=== PATIENT | male | born 1940 | race Caucasian/White ===

== ENCOUNTER → 2021-06-18 10:56 | Outpatient (BNVA) | payer MEDICARE, SELFPAY | PROVIDERS: PCP Internal Medicine; Visit Provider Nurse Practitioner Family | DX: G47.33 Obstructive sleep apnea (adult) (pediatric) (principal); M54.2 Cervicalgia; M79.2 Neuralgia and neuritis, unspecified | CPT/HCPCS: 99212 ==

== ENCOUNTER → 2021-09-25 09:58 | Outpatient (BNVA) | payer MEDICARE, SELFPAY | PROVIDERS: PCP Internal Medicine; Visit Provider Nurse Practitioner Family | DX: G47.33 Obstructive sleep apnea (adult) (pediatric) (principal); M79.2 Neuralgia and neuritis, unspecified; Z79.899 Other long term (current) drug therapy | CPT/HCPCS: 99212 ==

== ENCOUNTER → 2022-03-26 09:50 | Outpatient (BNVA) | payer MEDICARE, SELFPAY | PROVIDERS: PCP Internal Medicine Sports Medicine; Visit Provider Nurse Practitioner Family | DX: G47.33 Obstructive sleep apnea (adult) (pediatric) (principal); M79.2 Neuralgia and neuritis, unspecified | CPT/HCPCS: 99212 ==

== ENCOUNTER → 2022-09-24 10:50 | Outpatient (BNVA) | payer MEDICARE, SELFPAY | PROVIDERS: PCP Internal Medicine Sports Medicine; Visit Provider Nurse Practitioner Family | DX: G47.33 Obstructive sleep apnea (adult) (pediatric) (principal); M50.20 Other cervical disc displacement, unspecified cervical region; M48.02 Spinal stenosis, cervical region; R20.0 Anesthesia of skin; Z99.89 Dependence on other enabling machines and devices | CPT/HCPCS: 99212 ==

== ENCOUNTER 2022-10-22 09:38 | Outpatient (REF) | payer MEDICARE, SELFPAY ==
--- NOTE | ~2022-10-22 | MR_ITS ---
EXAMINATION: MR CERVICAL SPINE WITHOUT CONTRAST CLINICAL INFORMATION: Spinal stenosis, cervical region. COMPARISON: None available. TECHNIQUE: MRI of the cervical spine was performed using routine sequences without contrast. FINDINGS: The cervical vertebral bodies maintain normal heights. There is mild retrolisthesis of C4 on C5 and C6 on C7. Disc height loss appears severe at C4-C5, C5-C6, and C6-C7. Endplate edema seen at the C6-C7 level. 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 There is possible myelomalacia in the cord at the C6-C7 level. The imaged intracranial contents are unremarkable. The cervical soft tissues are within normal limits. A small amount of pleural fluid is noted on the left. SPINAL LEVELS: C2-C3: Disc osteophyte complex with ligamentum flavum infolding resulting in mild to moderate spinal canal stenosis. No neural foraminal stenosis. C3-C4: Disc osteophyte complex with uncovertebral hypertrophy and facet arthropathy. Mild spinal canal stenosis. Mild right neural foraminal stenosis. C4-C5: Disc osteophyte complex with uncovertebral hypertrophy resulting in severe spinal canal stenosis with cord flattening and severe right and moderate to severe left neural foraminal stenosis. C5-C6: Disc osteophyte complex with uncovertebral hypertrophy resulting in severe spinal canal stenosis and severe bilateral neural foraminal stenosis. C6-C7: Disc osteophyte complex with ligament flavum infolding and uncovertebral hypertrophy resulting in severe spinal canal stenosis and severe bilateral neural foraminal stenosis. C7-T1: No posterior disc abnormality. No spinal canal or neural foraminal stenosis. 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 Multilevel high-grade neural foraminal stenosis is also present.
== END 2022-10-22 09:39 | disposition home or self-care (01) ==
LOC: HO.MRI 09:38
PROVIDERS: PCP Internal Medicine Sports Medicine; Visit Provider Nurse Practitioner Family
DX: M48.02 Spinal stenosis, cervical region (principal); M50.20 Other cervical disc displacement, unspecified cervical region; R20.0 Anesthesia of skin
CPT/HCPCS: 72141

== ENCOUNTER 2023-03-27 10:46 | Outpatient (AMB) | payer MEDICARE, SELFPAY ==
--- NOTE | 2023-03-27 10:50 | MHC.OFFVIS ---
Intake Vital Signs 03/27/23 10:57 Height 5 ft 4 in Weight 207 lb BMI 35.5 Pulse 54 Pulse Source Pulse Oximeter Pulse Oximetry (%) 98 Oxygen Delivery Method Room Air Intake Visit Reasons: 6m follow up KEVIN-LVM Intake Note: Patient presents for 6 month follow up. Patient states Allergies No Known Allergies [No Known Allergies*] Allergy (Verified 03/27/23 10:58) Medication List - Last Reconciled 03/27/23 by CAROL Finnegan albuterol sulfate 90 mcg/actuation 0 mcg inhalation amlodipine 2.5 mg PO DAILY aspirin (Adult Aspirin Regimen) 81 mg PO DAILY atorvastatin 40 mg PO BEDTIME calcium glucarate 1 tab-cap PO DAILY cilostazol 50 mg PO BID coenzyme Q10 (Co Q-10) 100 mg PO DAILY colchicine (gout) 1.2 mg PO DAILY PRN finasteride 5 mg PO DAILY fluticasone propionate 110 mcg/actuation (Flovent HFA) 110 mcg inhalation BID fluticasone propionate 50 mcg/actuation sprays intranasal gabapentin 600 mg PO BEDTIME lorazepam 0.5 mg PO BEDTIME PRN metoprolol tartrate 25 mg PO BID multivitamin (Daily Multi-Vitamin tablet) 1 tab PO DAILY nitroglycerin 0.4 mg sublingual Q5M PRN olmesartan 5 mg PO DAILY pantoprazole 40 mg PO BID rivaroxaban (Xarelto) 20 mg PO DAILY HPI HPI Comments History of Present Illness Details 82-yr-old male presents for f/u visit. Pt denies any significant interval medical changes. He is sleeping well with CPAP, once he falls asleep. He is compliant w/ Gabapentin. He is still having right 4th/5th finger intermittent numbness. Denies focal weakness- feels general age-related weakness. States he can still flower buncher or picker his 5 gallon gasoline can. He is playing pickle ball. Sometimes he will use his push mower to increase his physical activity. 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 Multilevel high-grade neural foraminal stenosis is also present. [facility] Medical History (Updated 09/24/22 @ 12:59 by CAROL Finnegan) Syncope RBBB PVD (peripheral vascular disease) Hx of thyroid nodule GERD (gastroesophageal reflux disease) CAD (coronary artery disease) BPH (benign prostatic hyperplasia) Asthma Atrial fibrillation Surgical History H/O right knee surgery H/O heart surgery Family History Mother Breast cancer Father Heart attack Brother Stomach cancer Brother Heart disease Social History Alcohol intake: current Alcohol intake frequency: a few times a month Patient Tobacco Use Status: Former Tobacco user Quit Date: Years Smoked: 25 +/- Review of Systems Const All systems reviewed & are unremarkable except as noted in HPI and below Physical Exam Vital Signs: Last Vital Signs Pulse 54 03/27/23 10:57 Pulse Ox 98 03/27/23 10:57 Oxygen Delivery Method Room Air 03/27/23 10:57 BMI result Body Mass Index 35.5 Const General: cooperative and no acute distress Orientation/consciousness: patient oriented x3 HEENT Head: Yes normocephalic Resp Effort & Inspection: normal respiratory effort and able to speak in complete sentences Neuro Other: MS 5/5, with slightly weaker right hand grasp compared to left. BUE light touch sensation intact General: patient oriented x3, gait normal and CN's II-XI intact bilaterally Cognition (Neuro): normal cognition Deep tendon reflexes (DTR's): Right triceps reflex intensity grade: 1+, Left triceps reflex intensity grade: 1+, Rt Biceps (C5, C6): 1+, Left biceps reflex intensity grade: 1+, Right brachioradialis reflex intensity grade: 1+, Left brachioradialis reflex intensity grade: 1+, Right patellar reflex intensity grade: 1+ and Left patellar reflex intensity grade: 1+ Psych Appearance: grossly normal Mental Status: mental status grossly normal Speech and movement: Normal speech and movement present Affect: normal affect Attitude: cooperative Thought process: Normal thought process present Thought content: Normal thought content present Insight: Good insight present (Psych) Judgement: Good judgement present (Psych) Assessment & Plan Assessment & Plan (1) Obstructive sleep apnea (adult) (pediatric): Code(s): G47.33 - Obstructive sleep apnea (adult) (pediatric) (2) Cervical disc herniation: Code(s): M50.20 - Other cervical disc displacement, unspecified cervical region (3) Foraminal stenosis of cervical region: Code(s): M48.02 - Spinal stenosis, cervical region (4) Cervical stenosis of spinal canal: Code(s): M48.02 - Spinal stenosis, cervical region Plan Reviewed c-spine MRI- Multilevel degenerative spondylosis and congenital narrowing of spinal canal resulting in severe spinal canal stenosis with cord flattening at C4-C5, C5-C6, and C6-C7. Multilevel high-grade neural foraminal stenosis.. Pt currently reports only bothersoem symptom is right 4th/5th finger intermittent numbness. He is not interested in referal to neurosurgeon or physiatry at this time. Reviewed warning s/s to notify us with- acute weakness, numbness, gait changes etc. Continue gabapentin 600 mg q.h.s. ? Continue APAP 8-20 cmH2O nightly greater than, as patient is experiencing good the use. Will request updated Pap compliance report. f/u in 6 months or sooner prn Coding Level of Care Code Est Pt Level 4 (73603) Diagnoses Obstructive sleep apnea (adult) (pediatric) G47.33 Cervical disc herniation M50.20 Foraminal stenosis of cervical region M48.02 Cervical stenosis of spinal canal M48.02
[2023-03-27 10:57] VITALS: PULSE 54; O2SAT 98; BMI 35.5
== END 2023-03-27 11:43 | disposition home or self-care (01) ==
PROVIDERS: Visit Provider Nurse Practitioner Family
DX: G47.33 Obstructive sleep apnea (adult) (pediatric) (principal); M50.20 Other cervical disc displacement, unspecified cervical region; M48.02 Spinal stenosis, cervical region
CPT/HCPCS: 99214

== ENCOUNTER → 2023-03-27 10:46 | Outpatient (BNVA) | payer MEDICARE, SELFPAY | PROVIDERS: Visit Provider Nurse Practitioner Family | DX: G47.33 Obstructive sleep apnea (adult) (pediatric) (principal); M50.20 Other cervical disc displacement, unspecified cervical region; M48.02 Spinal stenosis, cervical region | CPT/HCPCS: 99212 ==

== ENCOUNTER 2023-07-21 14:21 | Outpatient (REF) | payer MEDICARE, SELFPAY ==
[2023-07-21 16:35] LABS: Anion Gap 14 (12-20); Blood Urea Nitrogen 29 mg/dL (9-16); Calcium 9.1 mg/dL (8.4-10.2); Carbon Dioxide 27 mmol/L (22-29); Chloride 104 mmol/L (96-108); Estimated Glomerular Filt Rate > 60; Glucose Random 102 mg/dL (60-115); Potassium 5.2 mmol/L (3.3-5.1); Sodium 140 mmol/L (135-145)
[2023-07-21 16:43] LABS: B Type Natriuretic Peptide 194 pg/mL (<100)
== END 2023-07-21 14:22 | disposition home or self-care (01) ==
LOC: HO.LAB 14:21
PROVIDERS: PCP Internal Medicine Sports Medicine; Visit Provider Internal Medicine
DX: I50.22 Chronic systolic (congestive) heart failure (principal); I25.10 Atherosclerotic heart disease of native coronary artery without angina pectoris; I48.91 Unspecified atrial fibrillation; Z95.810 Presence of automatic (implantable) cardiac defibrillator; Z79.899 Other long term (current) drug therapy; Z86.74 Personal history of sudden cardiac arrest
CPT/HCPCS: 36415; 80048; 83880; 93005; 99202

== ENCOUNTER 2023-07-21 14:21 | Outpatient (AMB) | payer MEDICARE, SELFPAY ==
[2023-07-21 14:29] VITALS: BP 112/56; PULSE 88; BMI 32.9
--- NOTE | 2023-07-21 14:29 | A.OFFVIS_ITS ---
Intake Vital Signs 07/21/23 14:29 Height 5 ft 4 in Weight 191 lb 9.307 oz BMI 32.9 BP 112/56 L Blood Pressure Location Rt brachial Position Sitting Pulse 88 Intake Visit Reasons: BRICK WHEELER/Phoebe cardio dad/ AK in Ms Intake Note: NPV w/ EKG Environmental Monitoring Technician Required: No Accompanied by: Daughter Allergies No Known Allergies [No Known Allergies*] Allergy (Verified 07/21/23 14:30) Medication List - Last Reconciled 07/21/23 by Evangelista Asher MD allopurinol 100 mg PO DAILY aspirin (Adult Aspirin Regimen) 81 mg PO DAILY bumetanide 1 mg PO DAILY PRN cilostazol 50 mg PO BID finasteride 5 mg PO DAILY fluticasone propionate 50 mcg/actuation sprays intranasal gabapentin 300 mg PO BEDTIME metoprolol succinate ER 12.5 mg PO BID nitroglycerin 0.4 mg sublingual Q5M PRN pantoprazole 40 mg PO BID rivaroxaban (Xarelto) 20 mg PO DAILY sacubitril-valsartan 24-26 mg (Entresto) 0.5 tabs PO BID trazodone 50 mg PO BEDTIME PRN HPI HPI Comments History of Present Illness Details Sherman is here for consultation regarding various cardiac issues. Fairly complicated history. It seems that he was previously followed up at [facility]. Then he traveled to [place] for a visit and in that setting, he had a cardiac arrest. There was bystander CPR and AED shocks and then return of spontaneous circulation. Then taken to hospital and appropriately managed. In the hospital, rhythm was apparently ventricular fibrillation. Then he underwent left heart catheterization, but that showed no significant findings and he had patent grafts. He was also in congestive heart failure and was on diuretic drips and dobutamine drips as well. Eventually, he underwent a BiV ICD and then successfully discharged. Then he went to rehab for a few days and then came back to [place]. He would like to switch his cardiac care to us. Since the time of discharge, he actually states he is back to his normal self for the most part. He does not have any memory deficits or anything else from the cardiac arrest event. He states that even before arrival he was not feeling too good and was feeling short of breath and was putting on some weight and having leg swelling extra. Hence it seems that he was actually having congestive heart failure even before traveling to [place]. [facility], [facility] Medical History (Updated 07/21/23 @ 15:29 by Evangelista Asher MD) Biventricular ICD (implantable cardioverter-defibrillator) in place Syncope RBBB PVD (peripheral vascular disease) Hx of thyroid nodule GERD (gastroesophageal reflux disease) CAD (coronary artery disease) BPH (benign prostatic hyperplasia) Asthma Atrial fibrillation Surgical History (Updated 07/21/23 @ 15:28 by Evangelista Asher MD) Hx of CABG Hx of cardiac cath H/O right knee surgery H/O heart surgery Family History Mother Breast cancer Father Heart attack Brother Stomach cancer Brother Heart disease Social History Alcohol intake: current Alcohol intake frequency: a few times a month Patient Tobacco Use Status: Former Tobacco user Quit Date: Years Smoked: 25 +/- Review of Systems Const Denies chills, Denies daytime sleepiness, Denies fatigue, Denies fever(s), Denies frequent falls, Denies night sweats, Denies snoring, Denies weakness, Denies weight gain and Denies weight loss Eyes Denies loss of vision ENT Denies dizziness and Denies hearing loss Card Denies chest pain, Denies chest pain with activity, Denies syncope, Denies rapid heart rate, Denies edema, Denies claudication, Denies leg edema, Denies lightheadedness, Denies palpitations, Denies dyspnea and Denies orthopnea Resp Denies cough, Denies excessive phlegm production, Denies dyspnea, Denies snoring and Denies wheezing GI Denies abdominal pain, Denies hematochezia, Denies change in bowel habits, Denies change in stool character, Denies heartburn, Denies nausea and Denies vomiting Denies hematuria, Denies dysuria and Denies urinary frequency Musc Denies arthralgias, Denies muscle weakness, Denies numbness and Denies tingling Skin/Breast Denies nail changes and Denies rash Neuro Denies Abnormal speech present, Denies dizziness, Denies syncope, Denies frequent falls, Denies loss of vision, Denies memory loss, Denies numbness, Denies tingling and Denies weakness Psych Denies depression and Denies memory loss Endo Denies fatigue and Denies palpitations Aller/Immun Denies wheezing Physical Exam Vital Signs: Last Vital Signs Pulse 88 07/21/23 14:29 BP 112/56 L 07/21/23 14:29 BMI result Body Mass Index 32.9 Const General: comfortable and no acute distress Orientation/consciousness: patient oriented x3 HEENT Other: Unremarkable Head: Yes normal to inspection Neck Neck: Yes normal visual inspection Chest Chest palpation & inspection: normal inspection of the chest Resp Auscultation: clear to auscultation bilaterally Cardio Palpation: normal PMI Heart sounds: S1 normal heart sound present, S2 normal heart sound present, no gallops, no murmurs and no rubs GI Palpation (GI): Soft to palpation Back/Spine/Pelvis Other: unremarkable Skin General skin exam: no rashes or lesions noted Neuro General: patient oriented x3 Speech: No Abnormal speech present Extrem General: Yes normal to inspection Psych Mental Status: mental status grossly normal Office Procedures EKG Details: EKG with atrial fibrillation at a rate of 88/Min; ventricular paced rhythm with some PVCs. [id number], Complete Assessment & Plan Assessment & Plan (1) Atherosclerotic cardiovascular disease: Code(s): I25.10 - Atherosclerotic heart disease of [place] coronary artery without angina pectoris Plan: Remote history of coronary bypass. In the most recent cardiac catheterization [place], patent grafts. Continue aspirin, statins. It seems that he is probably on atorvastatin but t hey do not know the dose. We can add that next time. (2) Acute congestive heart failure: Code(s): I50.9 - Heart failure, unspecified Plan: Per documentation, he was on Lasix drip while hospitalized. Now on oral Bumex but he only takes it as needed. In the discharge summary, there is mention of LVEF 30%, but then echocardiogram reports rather 54%. We will repeat another study. He was also on Jardiance but not taking anymore. His blood pressure is already on the lower side and hence probably not resume. Otherwise, on low-dose beta-blockers and low-dose Entresto at very low doses mainly for low blood pressure. (3) Cardiac arrest: Code(s): I46.9 - Cardiac arrest, cause unspecified Plan: Successfully resuscitated. Now has ICD in place. (4) Biventricular ICD (implantable cardioverter-defibrillator) in place: Code(s): Z95.810 - Presence of automatic (implantable) cardiac defibrillator Plan: Will need to be interrogated and we will schedule this for next week or so. Then remote monitoring as well. (5) Atrial fibrillation: Code(s): I48.91 - Unspecified atrial fibrillation Plan: EKG today shows atrial fibrillation. He has been on Xarelto recently. Again not clear if it is persistent or paroxysmal. Will need to get prior records. Plan We are sending Allopurinol for time being, as requested by daughter as they could not get PCP appointment. Total time spent including review of all the [place] records, counseling, documentation, coordination of care-60 minutes. Orders: Orders CA echo transthoracic complete Today I25.10 - Atherosclerotic heart disease of [place] coronary artery without angina pectoris B Type Natriuretic Peptide Today I50.9 - Heart failure, unspecified LDL Cholesterol Direct Today E78.2 - Mixed hyperlipidemia, I25.10 - Atherosclerotic heart disease of [place] coronary artery without angina pectoris Lipid Panel Today E78.5 - Hyperlipidemia, unspecified, I25.10 - Atherosclerotic heart disease of [place] coronary artery without angina pectoris Basic Metabolic Panel Today I50.22 - Chronic systolic (congestive) heart failure Liver Panel Today I25.10 - Atherosclerotic heart disease of [place] coronary artery without angina pectoris, I50.9 - Heart failure, unspecified Medications: New rivaroxaban (Xarelto) 20 mg PO DAILY 90 tabs 3RF allopurinol 100 mg PO DAILY 90 days 90 tabs 1RF metoprolol succinate ER 12.5 mg (1/2 x 25 mg) PO BID 90 days 90 tabs 3RF sacubitril-valsartan 24-26 mg (Entresto) 0.5 tabs PO BID 90 days 90 tabs 3RF Coding Level of Care Code New Pt Level 5 (63451) Diagnoses Atherosclerotic cardiovascular disease I25.10 Acute congestive heart failure I50.9 Cardiac arrest I46.9 Biventricular ICD (implantable cardioverter-defibrillator) in place Z95.810 Atrial fibrillation I48.91 CPT Codes EKG - CPT: 69054-[id number], Complete ([id number])
== END 2023-07-21 15:13 | disposition home or self-care (01) ==
PROVIDERS: PCP Internal Medicine Sports Medicine; Visit Provider Internal Medicine
DX: I25.10 Atherosclerotic heart disease of native coronary artery without angina pectoris (principal); I50.9 Heart failure, unspecified; I46.9 Cardiac arrest, cause unspecified; I48.91 Unspecified atrial fibrillation; Z95.810 Presence of automatic (implantable) cardiac defibrillator
CPT/HCPCS: 93010; 99205

== ENCOUNTER → 2023-07-23 08:46 | Outpatient (REF) | payer MEDICARE, SELFPAY ==
--- NOTE | 2023-07-23 08:50 | CA_ITS ---
Transthoracic Echocardiogram Patient (Last, First, Middle): Sherman Hurtado P Gender: Male Date of : 1940 Age: 82 Procedure Date: 07/23/2023 Procedure Type: Transthoracic Echocardiogram Location: OP Height: 162.56 cm Weight: 86.18 kg BSA: 1.91 m2 Heart Rate: 83 bpm BP: 104 / 52 mmHg [employer] Business Representative: SB Referring MD: Evangelista Asher MD Symptoms: I25.10 - Atherosclerotic heart disease of [place] coronary artery without... Study Quality: Adequate w contrast ECG Rhythm: Atrial Fibrillation Conclusions: - The left ventricular systolic function is mildly decreased. The calculated ejection fraction is 46% by biplane method. - The basal inferior and basal inferoseptal segments are hypokinetic. - The left atrium is moderately dilated. - No obvious valvular pathology seen on this study. Findings Procedure Information Contrast agent, definity, is being given per protocol without apparent complications. Left Ventricle Normal left ventricular cavity size. There is normal left ventricular wall thickness. The left ventricular systolic function is mildly decreased. The calculated ejection fraction is 46% by biplane method. Diastolic function is indeterminate on the basis of available data. Wall Motion Rest Echo Findings The basal inferior and basal inferoseptal segments are hypokinetic. Right Ventricle Mildly increased right ventricular cavity size. There is mildly decreased right ventricular systolic function. There is an ICD wire seen in the right ventricle. Atria The left atrium is moderately dilated. The right atrium is normal in size. Aortic Valve There is mild calcification of the aortic valve. There is no aortic valve stenosis. There is trace (trivial) aortic valve regurgitation. Mitral Valve There is mild mitral annular calcification. There is trace mitral valve regurgitation. There is no mitral valve stenosis. Pulmonic Valve The pulmonic valve is likely normal. Tricuspid Valve There is trace tricuspid valve regurgitation. There is no evidence of pulmonary hypertension. Great Vessels The asc aorta is normal in size. Venous The inferior vena cava is normal in size and collapses greater than 50% with inspiration. Pericardium/Pleural There is no evidence of pericardial effusion. Prior Study Comparison Changes noted compared to prior study dated: 06/07/2023. slightly lower LVEF compared to study from [place]; wall motion abnormality not previously described. Recommendations, Care & Conclusions No obvious valvular pathology seen on this study. Measurements 2D Linear Measurements IVSd: 0.82 0.6-0.9/0.6-1.0 cm LVIDd: 5.00 3.9-5.3/4.2-5.9 cm LVIDd Index: 2.62 2.4-3.2/2.2-3.1 cm/m2 LVIDs: 4.01 2.0-3.6 cm LVPWd: 0.90 0.7-1.1 cm LA Diam: 4.90 2.7-3.8/3.0-4.0 cm LAIDs Index: 2.57 1.5-2.3 cm/m2 LV Mass: 185.04 67-162/88-224 g LV Mass Index: 96.88 43-95/49-115 g/m2 LVOT Diam: 2.30 3.0+(-)1.3 cm 2D Systolic Function EF 4C: 42.00 >55% EF 2C: 47.60 >55% EF BiP: 45.80 >55% Mitral Valve MV Pk E: 1.01 MV Decel Time: 177.00 E'Lateral: 9.16 E'Medial: 5.98 E/E' Med: 16.90 E/E' Lat: 11.00 Aortic Valve AoV Pk Thaddeus: 2.02 AoV Mn Thaddeus: 1.40 AoV VTI: 0.35 AoV Pk Grad: 16.00 Aov Mn Grad: 9.00 ARIANNA Cont.VTI: 1.87 AI Pk Thaddeus: 3.65 AI [place]: 2.74 LVOT LVOT Pk Thaddeus: 0.91 LVOT Mn Thaddeus: 0.60 LVOT VTI: 0.16 LVOT Pk Grad: 3.00 LVOT Mn Grad: 2.00 LVOT Diam: 2.30 LVOT Area: 4.15 Diastolic Function MV Pk E: 1.01 E'Medial: 5.98 E/E' Med: 16.90 E' Laterial: 9.16 E/E' Lat: 11.00 Right Ventricle TAPSE (mm): 11.70 TVS' Thaddeus: 8.38 Tricuspid Valve TR Pk Thaddeus: 2.32 TR Pk Grad: 22.00 RA Press: 8.00 RVSP: 30.00 Great Vessels Aorta Sinus of Valsalva: 2.90 2.0-3.5 cm Ao Asc: 2.90 2.1-3.4 cm Pulmonary Valve PV Pk Thaddeus: 0.93 Peak PV Grad: 3.00 Updated in Other Vendor System with Status of Final Evangelista Asher MD electronically signed on 07/25/2023 11:37:37 AM with status of Final
== END ==
LOC: HO.CARD 08:46
PROVIDERS: PCP Internal Medicine Sports Medicine; Visit Provider Internal Medicine
DX: I25.10 Atherosclerotic heart disease of native coronary artery without angina pectoris (principal)
CPT/HCPCS: 93306; Q9957

== ENCOUNTER → 2023-07-23 08:50 | Outpatient (BNV) | payer MEDICARE, SELFPAY | PROVIDERS: PCP Internal Medicine Sports Medicine; Visit Provider Internal Medicine | DX: I25.10 Atherosclerotic heart disease of native coronary artery without angina pectoris (principal) | CPT/HCPCS: 93306 ==

== ENCOUNTER 2023-07-28 14:05 | Outpatient (AMB) | payer MEDICARE, SELFPAY ==
--- NOTE | 2023-07-29 15:27 | MHC.OFFVIS ---
Intake Intake Visit Reasons: med ck only Allergies No Known Allergies [No Known Allergies*] Allergy (Verified 07/21/23 14:30) PFSH Medical History (Updated 07/21/23 @ 15:29 by Evangelista Asher MD) Biventricular ICD (implantable cardioverter-defibrillator) in place Syncope RBBB PVD (peripheral vascular disease) Hx of thyroid nodule GERD (gastroesophageal reflux disease) CAD (coronary artery disease) BPH (benign prostatic hyperplasia) Asthma Atrial fibrillation Surgical History (Updated 07/21/23 @ 15:28 by Evangelista Asher MD) Hx of CABG Hx of cardiac cath H/O right knee surgery H/O heart surgery Family History Mother Breast cancer Father Heart attack Brother Stomach cancer Brother Heart disease Social History Alcohol intake: current Alcohol intake frequency: a few times a month Patient Tobacco Use Status: Former Tobacco user Quit Date: Years Smoked: 25 +/- Office Procedures Cardiac Device Check Cardiac Device Check Details: ICD interrogated 07/28/2023. Battery status 8.4 years. Normal lead parameters atrial fibrillation burden 100%. No treated VT/VF. Biventricular pacing 99.9%. Overall, normal device function. [id number] Cardiac Device Check, multi lead implantable defibrillator Procedure code (CPT) selection complete Assessment & Plan Assessment & Plan (1) Atrial fibrillation: Code(s): I48.91 - Unspecified atrial fibrillation (2) Cardiac arrest: Code(s): I46.9 - Cardiac arrest, cause unspecified (3) Biventricular ICD (implantable cardioverter-defibrillator) in place: Code(s): Z95.810 - Presence of automatic (implantable) cardiac defibrillator Plan x Coding Level of Care Code Procedure Only Diagnoses Atrial fibrillation I48.91 Cardiac arrest I46.9 Biventricular ICD (implantable cardioverter-defibrillator) in place Z95.810 CPT Codes Cardiac Device Check - Cardiac Device 6: [id number] Cardiac Device Check, multi lead implantable defibrillator ([id number])
== END 2023-07-28 15:00 | disposition home or self-care (01) ==
PROVIDERS: PCP Internal Medicine Sports Medicine; Visit Provider Internal Medicine
DX: I46.9 Cardiac arrest, cause unspecified (principal); Z95.810 Presence of automatic (implantable) cardiac defibrillator
CPT/HCPCS: 93284

== ENCOUNTER → 2023-07-28 14:05 | Outpatient (BNVA) | payer MEDICARE, SELFPAY | PROVIDERS: PCP Internal Medicine Sports Medicine; Visit Provider Internal Medicine ==

== ENCOUNTER → 2023-08-13 23:59 | Outpatient (BNV) | payer MEDICARE, SELFPAY ==
--- NOTE | 2023-08-17 13:06 | MHC.OFFVIS ---
Intake Intake Visit Reasons: Remote ICD Check- [employer] Allergies No Known Allergies [No Known Allergies*] Allergy (Verified 07/21/23 14:30) PFSH Medical History (Updated 07/21/23 @ 15:29 by Evangelista Asher MD) Biventricular ICD (implantable cardioverter-defibrillator) in place Syncope RBBB PVD (peripheral vascular disease) Hx of thyroid nodule GERD (gastroesophageal reflux disease) CAD (coronary artery disease) BPH (benign prostatic hyperplasia) Asthma Atrial fibrillation Surgical History (Updated 07/21/23 @ 15:28 by Evangelista Asher MD) Hx of CABG Hx of cardiac cath H/O right knee surgery H/O heart surgery Family History Mother Breast cancer Father Heart attack Brother Stomach cancer Brother Heart disease Social History Alcohol intake: current Alcohol intake frequency: a few times a month Patient Tobacco Use Status: Former Tobacco user Quit Date: Years Smoked: 25 +/- Office Procedures Cardiac Device Check Cardiac Device Check Details: Date of service 08/13/2023; Battery life >7 years; normal lead parameters; no treated VT/VF; episodes of atrial fibrillation with slightly rapid rate; total time in atrial fibrillation 43%. adequate Bi V pacing.. Overall normal device function. [id number] Cardiac Interrogation, implant defibrillator w/interim Procedure code (CPT) selection complete Assessment & Plan Assessment & Plan (1) Cardiac arrest: Code(s): I46.9 - Cardiac arrest, cause unspecified (2) Biventricular ICD (implantable cardioverter-defibrillator) in place: Code(s): Z95.810 - Presence of automatic (implantable) cardiac defibrillator (3) Atrial fibrillation: Code(s): I48.91 - Unspecified atrial fibrillation Plan x Coding Level of Care Code Procedure Only Diagnoses Cardiac arrest I46.9 Biventricular ICD (implantable cardioverter-defibrillator) in place Z95.810 Atrial fibrillation I48.91 CPT Codes Cardiac Device Check - Cardiac Device 13: [id number] Cardiac Interrogation, implant defibrillator w/interim ([id number])
== END ==
PROVIDERS: PCP Internal Medicine Sports Medicine; Visit Provider Internal Medicine
DX: I48.91 Unspecified atrial fibrillation (principal); Z95.810 Presence of automatic (implantable) cardiac defibrillator; I46.9 Cardiac arrest, cause unspecified
CPT/HCPCS: 93295

== ENCOUNTER → 2023-08-13 23:59 | Outpatient (BNV) | payer MEDICARE, SELFPAY ==
--- NOTE | 2023-08-17 13:04 | MHC.OFFVIS ---
Intake Intake Visit Reasons: Remote HF Monitoring- [employer] Allergies No Known Allergies [No Known Allergies*] Allergy (Verified 07/21/23 14:30) PFSH Medical History (Updated 07/21/23 @ 15:29 by Evangelista Asher MD) Biventricular ICD (implantable cardioverter-defibrillator) in place Syncope RBBB PVD (peripheral vascular disease) Hx of thyroid nodule GERD (gastroesophageal reflux disease) CAD (coronary artery disease) BPH (benign prostatic hyperplasia) Asthma Atrial fibrillation Surgical History (Updated 07/21/23 @ 15:28 by Evangelista Asher MD) Hx of CABG Hx of cardiac cath H/O right knee surgery H/O heart surgery Family History Mother Breast cancer Father Heart attack Brother Stomach cancer Brother Heart disease Social History Alcohol intake: current Alcohol intake frequency: a few times a month Patient Tobacco Use Status: Former Tobacco user Quit Date: Years Smoked: 25 +/- Office Procedures Cardiac Device Check Cardiac Device Check Details: Date of service- 08/13/2023; based on impedance data and physiological variables, there is no evidence of worsening congestive heart failure. [id number] Cardiac Device Interrogation, cardio physiologic monitor Procedure code (CPT) selection complete Assessment & Plan Assessment & Plan (1) Cardiac arrest: Code(s): I46.9 - Cardiac arrest, cause unspecified (2) Atrial fibrillation: Code(s): I48.91 - Unspecified atrial fibrillation (3) Biventricular ICD (implantable cardioverter-defibrillator) in place: Code(s): Z95.810 - Presence of automatic (implantable) cardiac defibrillator Plan x Coding Level of Care Code Procedure Only Diagnoses Cardiac arrest I46.9 Atrial fibrillation I48.91 Biventricular ICD (implantable cardioverter-defibrillator) in place Z95.810 CPT Codes Cardiac Device Check - Cardiac Device 15: [id number] Cardiac Device Interrogation, cardio physiologic monitor ([id number])
== END ==
PROVIDERS: PCP Internal Medicine Sports Medicine; Visit Provider Internal Medicine
DX: I46.9 Cardiac arrest, cause unspecified (principal); I48.91 Unspecified atrial fibrillation; Z95.810 Presence of automatic (implantable) cardiac defibrillator
CPT/HCPCS: 93297

== ENCOUNTER 2023-08-26 13:47 | Outpatient (REF) | payer MEDICARE, SELFPAY ==
[2023-08-26 14:52] LABS: Uric Acid 5.8 mg/dL (3.4-7.0)
[2023-08-26 14:57] LABS: Alanine Aminotransferase 13 U/L (0-40); Alkaline Phosphatase 109 U/L (39-117); Anion Gap 11 (12-20); Aspartate Amino Transferase 22 U/L (5-37); Bilirubin Direct 0.3 mg/dL (0.0-0.5); Bilirubin Total 0.6 mg/dL (0.0-1.0); Blood Urea Nitrogen 21 mg/dL (9-16); Calcium 9.5 mg/dL (8.4-10.2); Carbon Dioxide 26 mmol/L (22-29); Chloride 106 mmol/L (96-108); Estimated Glomerular Filt Rate > 60; Glucose Random 91 mg/dL (60-115); Potassium 4.4 mmol/L (3.3-5.1); Sodium 139 mmol/L (135-145); Total Protein 6.6 g/dL (6.5-8.0)
== END 2023-08-26 13:48 | disposition home or self-care (01) ==
LOC: HO.LAB 13:47
PROVIDERS: Absent Provider Internal Medicine Sports Medicine; PCP Internal Medicine Sports Medicine; Visit Provider Internal Medicine
DX: M10.9 Gout, unspecified (principal); I50.9 Heart failure, unspecified; I25.10 Atherosclerotic heart disease of native coronary artery without angina pectoris
CPT/HCPCS: 36415; 80048; 80076; 84550

== ENCOUNTER 2023-09-01 08:26 | Outpatient (REF) | payer MEDICARE, SELFPAY ==
[2023-09-01 11:45] LABS: Cholesterol 117 mg/dL (<200); HDL Cholesterol 39 mg/dL (>40); LDL Cholesterol Calculated 61 mg/dL (<100); Triglycerides 88 mg/dL (<150)
[2023-09-02 18:39] LABS: LDL Cholesterol Direct 68 mg/dL (<100)
== END 2023-09-01 08:27 | disposition home or self-care (01) ==
LOC: HO.WFDLDS 08:26
PROVIDERS: Visit Provider Internal Medicine
DX: E78.5 Hyperlipidemia, unspecified (principal); I25.10 Atherosclerotic heart disease of native coronary artery without angina pectoris; E78.2 Mixed hyperlipidemia
CPT/HCPCS: 36415; 80061; 83721

== ENCOUNTER 2023-09-03 13:39 | Outpatient (AMB) | payer MEDICARE, SELFPAY ==
--- NOTE | 2023-09-03 14:07 | A.OFFVIS_ITS ---
Intake Vital Signs 09/03/23 14:09 Height 5 ft 4 in Weight 186 lb 1.122 oz BMI 31.9 BP 114/56 L Blood Pressure Location Lt brachial Position Sitting Pulse 87 Intake Visit Reasons: 5 wk f/up Intake Note: 5 week follow up Personal Trainer Required: No Accompanied by: Daughter Allergies No Known Allergies [No Known Allergies*] Allergy (Verified 09/03/23 14:09) Medication List - Last Reconciled 09/03/23 by Evangelista Asher MD allopurinol 100 mg PO DAILY 90 days aspirin (Adult Aspirin Regimen) 81 mg PO DAILY bumetanide 1 mg PO DAILY PRN cilostazol 50 mg PO BID finasteride 5 mg PO DAILY fluticasone propionate 50 mcg/actuation sprays intranasal gabapentin 300 mg PO BEDTIME metoprolol succinate ER 12.5 mg PO DAILY nitroglycerin 0.4 mg sublingual Q5M PRN pantoprazole 40 mg PO BID rivaroxaban (Xarelto) 20 mg PO DAILY sacubitril-valsartan 24-26 mg (Entresto) 0.5 tabs PO BID 90 days trazodone 50 mg PO BEDTIME PRN HPI HPI Comments History of Present Illness Details Sherman returns for follow-up. Recently seen in consultation. Fairly complicated history. Previously followed up at [facility]. In may 2023, he traveled to [place] for a visit and in that setting, he had a cardiac arrest. There was bystander CPR and AED shocks and then return of spontaneous circulation. Then taken to hospital and appropriately managed. In the hospital, rhythm was apparently ventricular fibrillation. Then he underwent left heart catheterization, but that showed no significant findings and he had patent grafts. He was also in congestive heart failure and was on diuretic drips and dobutamine drips as well. Eventually, he underwent a BiV ICD and then successfully discharged. Then he went to rehab for a few days and then came back to [place]. He would like to switch his cardiac care to us. Since the time of discharge, he actually states he is back to his normal self for the most part. He does not have any memory deficits or anything else from the cardiac arrest event. He states that even before arrival he was not feeling too good and was feeling short of breath and was putting on some weight and having leg swelling extra. Hence it seems that he was actually having congestive heart failure even before traveling to [place]. Since last seen, he states he is actually doing pretty good. Absolutely no cardiac complaints. [facility] Medical History (Updated 07/21/23 @ 15:29 by Evangelista Asher MD) Biventricular ICD (implantable cardioverter-defibrillator) in place Syncope RBBB PVD (peripheral vascular disease) Hx of thyroid nodule GERD (gastroesophageal reflux disease) CAD (coronary artery disease) BPH (benign prostatic hyperplasia) Asthma Atrial fibrillation Surgical History Hx of CABG Hx of cardiac cath H/O right knee surgery H/O heart surgery Family History Mother Breast cancer Father Heart attack Brother Stomach cancer Brother Heart disease Social History Alcohol intake: current Alcohol intake frequency: a few times a month Patient Tobacco Use Status: Former Tobacco user Quit Date: Years Smoked: 25 +/- Review of Systems Const Denies weakness ENT Denies dizziness Card Denies chest pain, Denies chest pain with activity, Denies syncope, Denies rapid heart rate, Denies pedal edema, Denies edema, Denies leg edema, Denies lightheadedness, Denies palpitations, Denies dyspnea, Denies dyspnea on exertion and Denies orthopnea Resp Denies cough, Denies dyspnea and Denies dyspnea on exertion GI Denies hematochezia and Denies change in stool character Musc Denies abnormal gait, Denies muscle cramps, Denies muscle weakness, Denies numbness, Denies radiating pain into limb and Denies tingling Neuro Denies abnormal gait, Denies dizziness, Denies syncope, Denies numbness, Denies tingling and Denies weakness Endo Denies palpitations Physical Exam Vital Signs: Last Vital Signs Pulse 87 09/03/23 14:09 BP 114/56 L 09/03/23 14:09 BMI result Body Mass Index 31.9 Const General: comfortable and no acute distress Orientation/consciousness: patient oriented x3 HEENT Other: Unremarkable Head: Yes normal to inspection Neck Neck: Yes normal visual inspection Chest Chest palpation & inspection: normal inspection of the chest Resp Auscultation: clear to auscultation bilaterally Cardio Palpation: normal PMI Heart sounds: S1 normal heart sound present, S2 normal heart sound present, no gallops, no murmurs and no rubs GI Palpation (GI): Soft to palpation Back/Spine/Pelvis Other: unremarkable Skin General skin exam: no rashes or lesions noted Neuro General: patient oriented x3 Extrem General: Yes normal to inspection Psych Mental Status: mental status grossly normal Assessment & Plan Assessment & Plan (1) Atherosclerotic cardiovascular disease: Code(s): I25.10 - Atherosclerotic heart disease of [place] coronary artery without angina pectoris Plan: Remote history of coronary bypass. In the most recent cardiac catheterization [place], patent grafts. Continue aspirin, statins. It seems that he is probably on atorvastatin but they do not know the dose. (2) Acute congestive heart failure: Code(s): I50.9 - Heart failure, unspecified Plan: Mostly improved. While hospitalized, he was on Lasix drip. Now on p.r.n. Bumex. In the current echocardiogram mild LV dysfunction only. For meds, on a small dose of beta-blockers/Entresto, mainly due to low blood pressures. Suggested that he increase the dose. He can take a full dose of the same tablets as opposed to half dose. In the home blood pressure readings, they are substantially higher than what we are getting here. They will make sure it is not a inaccurate reading 1st. Check BMP in a few days after the Entresto dose change. In the past, there is mention of Jardiance but not on this anymore. (3) Cardiac arrest: Code(s): I46.9 - Cardiac arrest, cause unspecified Plan: Successfully resuscitated. Now has ICD in place. (4) Biventricular ICD (implantable cardioverter-defibrillator) in place: Code(s): Z95.810 - Presence of automatic (implantable) cardiac defibrillator Plan: Being monitored remotely. (5) Atrial fibrillation: Code(s): I48.91 - Unspecified atrial fibrillation Plan: Not clear if it is persistent or not. Any case, absolutely no symptoms. Continue anticoagulation. In the last ICD check, burden was 43%. Orders: Orders Basic Metabolic Panel 2 Weeks I50.22 - Chronic systolic (congestive) heart failure Coding Level of Care Code Est Pt Level 4 (85696) Diagnoses Atherosclerotic cardiovascular disease I25.10 Acute congestive heart failure I50.9 Cardiac arrest I46.9 Biventricular ICD (implantable cardioverter-defibrillator) in place Z95.810 Atrial fibrillation I48.91
[2023-09-03 14:09] VITALS: BP 114/56; PULSE 87; BMI 31.9
== END 2023-09-03 14:35 | disposition home or self-care (01) ==
PROVIDERS: PCP Internal Medicine Sports Medicine; Visit Provider Internal Medicine
DX: I25.10 Atherosclerotic heart disease of native coronary artery without angina pectoris (principal); I50.9 Heart failure, unspecified; I46.9 Cardiac arrest, cause unspecified; Z95.810 Presence of automatic (implantable) cardiac defibrillator; I48.91 Unspecified atrial fibrillation
CPT/HCPCS: 99214

== ENCOUNTER → 2023-09-03 13:39 | Outpatient (BNVA) | payer MEDICARE, SELFPAY | PROVIDERS: PCP Internal Medicine Sports Medicine; Visit Provider Internal Medicine | DX: I25.10 Atherosclerotic heart disease of native coronary artery without angina pectoris (principal); I50.9 Heart failure, unspecified; I46.9 Cardiac arrest, cause unspecified; I48.91 Unspecified atrial fibrillation; Z95.810 Presence of automatic (implantable) cardiac defibrillator | CPT/HCPCS: 99212 ==

== ENCOUNTER 2023-10-01 10:46 | Outpatient (AMB) | payer MEDICARE, SELFPAY ==
--- NOTE | 2023-10-01 10:58 | A.OFFVIS_ITS ---
Intake Vital Signs 10/01/23 10:59 BP 110/74 Blood Pressure Location Rt brachial Position Sitting Pulse 84 Pulse Source Pulse Oximeter Pulse Oximetry (%) 99 Oxygen Delivery Method Room Air Intake Visit Reasons: 6 mo f/u KEVIN - LVM Intake Note: Patient presents for 6 month follow up. Allergies No Known Allergies [No Known Allergies*] Allergy (Verified 10/01/23 11:01) Medication List - Last Reconciled 10/01/23 by CAROL Finnegan allopurinol 100 mg PO DAILY 90 days aspirin (Adult Aspirin Regimen) 81 mg PO DAILY bumetanide 1 mg PO DAILY PRN cilostazol 50 mg PO BID finasteride 5 mg PO DAILY fluticasone propionate 50 mcg/actuation sprays intranasal gabapentin 300 mg PO BEDTIME metoprolol succinate ER 12.5 mg PO DAILY nitroglycerin 0.4 mg sublingual Q5M PRN pantoprazole 40 mg PO BID rivaroxaban (Xarelto) 20 mg PO DAILY sacubitril-valsartan 24-26 mg (Entresto) 0.5 tabs PO BID 90 days trazodone 50 mg PO BEDTIME PRN HPI HPI Comments History of Present Illness Details 82-yr-old male presents for f/u visit. Pt endorses the following interval medical history changes: Pt reports he had a acute cardiac event while in [place] in May. He was feeling ok, but had been putting on some weight and had noticed some increased SOBOE. He required defibrillation. He had pacemaker placement. Upon return, he has transferred care to [facility] cardiology. He is currently doing cardiac rehab. He is doing daily weights. And adhering to a low salt diet. The hospital in [place] did decrease his Gabapentin to 300mg, he is wondering why. Has been noticing a bit more left 4th and 5th finger numbness/tingling. When the pain is more bothersome, he will use his old carpal tunnel splint which helps some. He states at this time he is overall feeling better. He is not having bothersome neck pains. He can have some difficulty with opening up jars. He is compliant w/ his CPAP. [facility] Medical History Biventricular ICD (implantable cardioverter-defibrillator) in place Syncope RBBB PVD (peripheral vascular disease) Hx of thyroid nodule GERD (gastroesophageal reflux disease) CAD (coronary artery disease) BPH (benign prostatic hyperplasia) Asthma Atrial fibrillation Surgical History Hx of CABG Hx of cardiac cath H/O right knee surgery H/O heart surgery Family History Mother Breast cancer Father Heart attack Brother Stomach cancer Brother Heart disease Social History Alcohol intake: current Alcohol intake frequency: a few times a month Patient Tobacco Use Status: Former Tobacco user Quit Date: Years Smoked: 25 +/- Physical Exam Vital Signs: Last Vital Signs Pulse 84 10/01/23 10:59 BP 110/74 10/01/23 10:59 Pulse Ox 99 10/01/23 10:59 Oxygen Delivery Method Room Air 10/01/23 10:59 Const General: cooperative and no acute distress Orientation/consciousness: patient oriented x3 Resp Effort & Inspection: normal respiratory effort and able to speak in complete sentences Neuro General: patient oriented x3 Cranial nerves: Yes CN's II-XII intact bilaterally Cognition (Neuro): normal cognition Psych Appearance: grossly normal Mental Status: mental status grossly normal Speech and movement: Normal speech and movement present Affect: normal affect Attitude: cooperative Assessment & Plan Assessment & Plan (1) Neuralgia and neuritis, unspecified: Comment: Severe BUE carpal tunnel-improved s/p BUE carpal tunnel repair Code(s): M79.2 - Neuralgia and neuritis, unspecified (2) Obstructive sleep apnea (adult) (pediatric): Code(s): G47.33 - Obstructive sleep apnea (adult) (pediatric) (3) Cervical stenosis of spinal canal: Code(s): M48.02 - Spinal stenosis, cervical region (4) Cervical disc herniation: Code(s): M50.20 - Other cervical disc displacement, unspecified cervical region Plan Monitor cervicalgia and UE paresthesias, weakness in setting of cervical multilevel 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 Reviewed warning s/s to notify us with- acute weakness, numbness, gait changes etc. ? May increase gabapentin back to 600 mg q.h.s. ? Continue APAP 8-20 cmH2O nightly greater than, as patient is experiencing good the use. Will request updated Pap compliance report. ? f/u in 6 months or sooner prn Medications: Changed From gabapentin 600 mg PO BEDTIME 90 tabs 3RF To gabapentin 600 mg PO BEDTIME 90 tabs 1RF 90 days Coding Level of Care Code Est Pt Level 4 (80488) Diagnoses Neuralgia and neuritis, unspecified M79.2 Obstructive sleep apnea (adult) (pediatric) G47.33 Cervical stenosis of spinal canal M48.02 Cervical disc herniation M50.20
[2023-10-01 10:59] VITALS: BP 110/74; PULSE 84; O2SAT 99
== END 2023-10-01 11:49 | disposition home or self-care (01) ==
PROVIDERS: PCP Internal Medicine Sports Medicine; Visit Provider Nurse Practitioner Family
DX: M79.2 Neuralgia and neuritis, unspecified (principal); G47.33 Obstructive sleep apnea (adult) (pediatric); M48.02 Spinal stenosis, cervical region; M50.20 Other cervical disc displacement, unspecified cervical region
CPT/HCPCS: 99214

== ENCOUNTER → 2023-10-01 10:46 | Outpatient (BNVA) | payer MEDICARE, SELFPAY | PROVIDERS: PCP Internal Medicine Sports Medicine; Visit Provider Nurse Practitioner Family | DX: G47.33 Obstructive sleep apnea (adult) (pediatric) (principal); M79.2 Neuralgia and neuritis, unspecified; M48.02 Spinal stenosis, cervical region; M50.20 Other cervical disc displacement, unspecified cervical region | CPT/HCPCS: 99212 ==

== ENCOUNTER 2023-10-10 11:24 | Emergency (ER) | payer MEDICARE, SELFPAY ==
--- NOTE | ~2023-10-10 | XR_ITS ---
EXAMINATION: XR CHEST CLINICAL INFORMATION: Shortness of breath. COMPARISON: 08/11/2023 TECHNIQUE: Frontal view of the chest was obtained. FINDINGS: Triple lead AICD overlies the left pectoral region with leads terminating in the right atrium, right ventricle, and coronary sinus. Sternal wires and surgical clips are present. The 2 more cephalad sternotomy wires are chronically disrupted. Atelectatic calcifications are noted in the thoracic aorta. Heart is normal in size. No consolidation, pneumothorax, or pleural effusion. Degenerative spondylosis is present in the thoracic spine. XR/XR chest 1V IMPRESSION: No acute pulmonary findings.
--- NOTE | 2023-10-10 11:33 | ECG_ITS ---
Test Reason : Near-syncope Blood Pressure : / mmHG Vent. Rate : 072 BPM Atrial Rate : 071 BPM P-R Int : 000 ms QRS Dur : 118 ms QT Int : 440 ms P-R-T Axes : 000 162 029 degrees QTc Int : 481 ms Ventricular-paced rhythm Biventricular pacemaker detected Abnormal ECG When compared with ECG of 14-MAY-2013 10:37, Electronic ventricular pacemaker has replaced Sinus rhythm Referred By: Yulia Davidson Electronically Signed By:HILLARY GEIGER MD
[2023-10-10 11:40] VITALS: BP 112/51; PULSE 72; RESP 16; TEMP 36.7; O2SAT 98; BMI 32.6
--- NOTE | 2023-10-10 11:57 | ED_ITS ---
HPI - Weakness General Chief complaint: Syncope Stated complaint: near syncopy and weakness Time Seen by Provider: 10/10/23 11:33 Source: patient Mode of arrival: ambulatory History of Present Illness HPI Narrative: 82-year-old male with extensive cardiac past medical history, had an NC in May and underwent ICD placement in June of this year presents for near syncopal episode while in rehab, states he felt weak and they took his blood pressure stating that systolic was 60-80, patient has normal pressure here in this emergency room, he denies any recent illnesses/shortness of breath/chest pain/GI or symptoms. Related Data Home Medications ?Medication ?Instructions ?Recorded ?Confirmed aspirin 81 mg tablet,delayed 81 mg PO DAILY 06/18/21 10/01/23 release (Adult Aspirin Regimen) cilostazol 50 mg tablet 50 mg PO BID 06/18/21 10/01/23 finasteride 5 mg tablet 5 mg PO DAILY 06/18/21 10/01/23 nitroglycerin 0.4 mg sublingual 0.4 mg sublingual Q5M PRN 06/18/21 10/01/23 tablet pantoprazole 40 mg tablet,delayed 40 mg PO BID 06/18/21 10/01/23 release fluticasone propionate 50 spray intranasal 03/26/22 10/01/23 mcg/actuation nasal spray,suspension bumetanide 1 mg tablet 1 mg PO DAILY PRN 07/21/23 10/01/23 trazodone 50 mg tablet 50 mg PO BEDTIME PRN 07/21/23 10/01/23 metoprolol succinate 25 mg 12.5 mg PO DAILY 09/03/23 10/01/23 tablet,extended release 24 hr Previous Rx's ?Medication ?Instructions ?Recorded allopurinol 100 mg tablet 100 mg PO DAILY 90 days #90 tabs 07/21/23 rivaroxaban 20 mg tablet (Xarelto) 20 mg PO DAILY #90 tabs 07/21/23 sacubitril 24 mg-valsartan 26 mg 0.5 tab PO BID 90 days #90 tabs 07/21/23 tablet (Entresto) gabapentin 600 mg tablet 600 mg PO BEDTIME 90 days #90 tabs 10/01/23 Allergies Allergy/AdvReac Type Severity Reaction Status Date / Time No Known Allergies Allergy Verified 10/10/23 11:41 [No Known Allergies*] Review of Systems 2 Review of Systems: Pertinent positives and negatives as stated in [facility] Past Medical History Source: nursing notes reviewed Medical History Biventricular ICD (implantable cardioverter-defibrillator) in place Syncope RBBB PVD (peripheral vascular disease) Hx of thyroid nodule GERD (gastroesophageal reflux disease) CAD (coronary artery disease) BPH (benign prostatic hyperplasia) Asthma Atrial fibrillation Surgical History Hx of CABG Hx of cardiac cath H/O right knee surgery H/O heart surgery Family History Family History Mother Breast cancer Father Heart attack Brother Stomach cancer Brother Heart disease Social History Social History Alcohol intake: current Alcohol intake frequency: a few times a month Patient Tobacco Use Status: Former Tobacco user Quit Date: Years Smoked: 25 +/- Advance Directives: No Advance Directives Information Provided: No Do you have a plan to hurt others: No Plan Physical Exam 2 Vital Signs: Vital Signs: Last Vital Signs Temp 98.0 F 10/10/23 11:40 Pulse 68 10/10/23 12:53 Resp 20 10/10/23 12:53 BP 120/58 L 10/10/23 13:52 Pulse Ox 99 10/10/23 12:53 O2 Del Method Room Air 10/10/23 12:53 BMI result Body Mass Index 32.6 VITAL SIGNS: Reviewed. GENERAL: Well developed, well nourished, in no acute distress. HEAD: Normocephalic/atraumatic EYES: PERRLA, EOMI EARS: Ext canals without abnormality NOSE: Nares patent bilateral OROPHARYNX: no oral lesions noted, posterior pharynx clear NECK: Supple, no adenopathy LUNGS: Normal breath sounds. No adventitious sounds or accessory muscle use. SpO2<98> CARDIOVASCULAR: Regular rate and rhythm without noted murmurs, no JVD or lower extremity edema. ABDOMEN: Soft, non-tender, non-distended with bowel sounds. MUSCULOSKELETAL: No tenderness, deformities, or effusions noted on gross inspection. EXTREMITIES: No cyanosis, clubbing or edema. SKIN: Inspection of the skin reveals no rashes NEUROLOGIC: Alert and oriented x 4. Strength and sensation to light touch were grossly intact x 4. Medical Decision Making Medical Decision Making [facility] Narrative: 82-year-old male with history and clinical presentation of near syncope, denies any shortness of breath or associated chest pain an EKG demonstrates ventricular paced rhythm of 72. Will evaluate for any evidence of infection, anemia, electrolyte derangements but doubt acute cardiopulmonary etiology. I reviewed all investigations and hematologic indices are negative for leukocytosis, there is a normocytic anemia and no thrombocytopenia. Coagulation studies are elevated consistent with chronic anticoagulation. Chemistries indices negative for LIBRA or electrolyte/liver enzyme derangements, high sensitivity troponin is noted to be elevated at 139.2 but suspect that this is a type 2 event after patient's near syncopal episode with significant hypotension. EKG demonstrates ventricular paced and there are no available comparison EKGs and the echocardiogram is not available. BNP is noted be elevated at 454 but with patient's soft blood pressures and lack of clinical evidence of fluid overload will not pursue aggressive diuresis. 1345: I discussed all results and findings with the daughter at bedside and she is in agreement that my interpretation is with beta blockade and then exertion patient is unable to increased heart rate which lowers cardiac output and then his blood pressure drops. 1348: I have contacted cardiology as well as obtaining Trop #2. Cardiology agrees with cessation of metoprolol, troponins are noted to be flat and otherwise patient remains pain-free and is feeling much better. I discussed all results and findings as well as the plan with the patient and daughter and he is otherwise discharged home. Differential Diagnosis Differential Diagnoses: The differential diagnosis associated with the presentation includes Please see the discussion above Admission/Observation Consideration of admission/observation: Escalation of care including admission/observation considered Please see the discussion above Consult Healthcare Provider Management of the patient was discussed with: Program Therapist Please see the discussion above Lab Data [facility] Lab Attestation statement: I reviewed the patient's lab results. Please see the discussion above 10/10/23 11:53 10/10/23 11:52 Labs: Lab Results 10/10/23 10/10/23 10/10/23 Range/Units 11:52 11:53 13:59 WBC 6.3 (4.8-10.8) X10*3/uL RBC 4.13 L (4.60-5.80) X10*6/uL Hgb 11.2 L (14.0-18.0) g/dl Hct 34.8 L (42.0-52.0) % MCV 84.3 (80.0-98.0) fL MCH 27.1 (27.0-33.0) pg MCHC 32.2 (31.0-36.0) g/dl RDW 18.0 H (11.0-16.0) % Plt Count 211 (160-400) X10*3/uL MPV 10.7 (9.4-12.4) fL Immature Gran % (Auto) 0.3 (0.0-0.4) % Neut % (Auto) 69.9 (45-73) % Lymph % (Auto) 14.8 L (20-40) % [place] % (Auto) 12.6 H (2-11) % Eos % (Auto) 1.9 (0-4) % Baso % (Auto) 0.5 (0-2) % Lymph # (Auto) 0.9 L (1.2-4.9) X10*3/uL [place] # (Auto) 0.8 (0.1-1.2) X10*3/uL Eos # (Auto) 0.1 (0.0-0.4) X10*3/uL Baso # (Auto) 0.0 (0.0-0.2) X10*3/uL Abs Immat Gran (auto) 0.02 (0.00-0.03) X10*3/uL Absolute Neuts (auto) 4.4 (2.0-8.3) x10*3/uL Absolute Nucleated RBC 0.000 (0.0-0.012) X10*3/uL Nucleated RBC % (auto) 0.0 (0.0-0.2) /100WBC PT 17.0 H (11.1-13.3) SEC INR 1.4 H (0.9-1.1) Sodium 138 (135-145) mmol/L Potassium 5.0 (3.3-5.1) mmol/L Chloride 108 (96-108) mmol/L Carbon Dioxide 22 (22-29) mmol/L Anion Gap 13 (12-20) BUN 25 H (9-16) mg/dL Creatinine 1.06 (0.5-1.4) mg/dL Estim Creat Clear Calc 55.0 Estimated GFR > 60 Random Glucose 106 (60-115) mg/dL Calcium 9.0 (8.4-10.2) mg/dL Total Bilirubin 0.6 (0.0-1.0) mg/dL AST 31 (5-37) U/L ALT 16 (0-40) U/L Alkaline Phosphatase 83 (39-117) U/L Troponin I High Sens 139.2 H* 131.8 H* (<3.5-35.0) ng/L B-Natriuretic Peptide 454 H (<100) pg/mL Total Protein 6.2 L (6.5-8.0) g/dL Albumin 3.7 (3.5-5.0) g/dL Influenza Type A (PCR) NEGATIVE (Negative) Influenza Type B (PCR) NEGATIVE (Negative) RSV RNA Qual (PCR) NEGATIVE (Negative) SARS-CoV-2 RNA (RT-PCR) NEGATIVE (Negative) Independent Interpretation I performed an independent interpretation of an: EKG Interpretation: Ventricular paced rhythm, HR-72, no STEMI, QRS-118, QTC -481 and no EKG recent for comparison. Radiology Impression Discussion of test interpretation with radiology: I have reviewed the radiologist's reading. Radiologist Impression: Please see the discussion above External Record Review External record reviewed: Outpatient record, Prior outpatient labs and Prior outpatient radiology Chronic Conditions Patient?s care impacted by: Hypertension Critical Care Time Critical Care Time Critical Care Time: Yes Total Critical Care Time: 60 Attestation: I personally attest to this time spent taking care of the patient. Discharge Plan Discharge Clinical Impression: Near syncope Patient Disposition: Home, Self-Care Instructions: Near Syncope (ED) Additional Instructions: Stop taking metoprolol Please follow-up with cardiology your primary care doctor in the next 1-2 days. Return to the ER for any worsening of symptoms. Prescriptions: No Action pantoprazole 40 mg tablet,delayed release (DR/EC) 40 mg PO BID nitroglycerin 0.4 mg tablet, sublingual 0.4 mg sublingual Q5M PRN Rx Instructions: do not exceed 3 doses per episode finasteride 5 mg tablet 5 mg PO DAILY cilostazol 50 mg tablet 50 mg PO BID aspirin [Adult Aspirin Regimen] 81 mg tablet,delayed release (DR/EC) 81 mg PO DAILY fluticasone propionate 50 mcg/actuation spray,suspension intranasal gabapentin 600 mg tablet 600 mg PO BEDTIME 90 Days Qty: 90 1RF metoprolol succinate 25 mg tablet extended release 24 hr 12.5 mg PO DAILY trazodone 50 mg tablet 50 mg PO BEDTIME PRN bumetanide 1 mg tablet 1 mg PO DAILY PRN allopurinol 100 mg tablet 100 mg PO DAILY 90 Days Qty: 90 1RF Entresto 24-26 mg tablet 0.5 tab PO BID 90 Days Qty: 90 3RF Xarelto 20 mg tablet 20 mg PO DAILY Qty: 90 3RF Referrals: Evangelista Asher MD [Physician] - Print Language: [place]ian
[2023-10-10 11:58] LABS: MANUAL DIFF FLAG NO
[2023-10-10 12:02] LABS: Basophils Percent Auto 0.5 % (0-2); Eosinophils Absolute Auto 0.1 X10*3/uL (0.0-0.4); Eosinophils Percent Auto 1.9 % (0-4); Hematocrit 34.8 % (42.0-52.0); Hemoglobin 11.2 g/dl (14.0-18.0); Imm Gran Abs Auto 0.02 X10*3/uL (0.00-0.03); Imm Gran Pct Auto 0.3 % (0.0-0.4); Lymphocytes Absolute Auto 0.9 X10*3/uL (1.2-4.9); Lymphocytes Percent Auto 14.8 % (20-40); Mean Corpuscular HGB Conc 32.2 g/dl (31.0-36.0); Mean Corpuscular Hemoglobin 27.1 pg (27.0-33.0); Mean Corpuscular Volume 84.3 fL (80.0-98.0); Mean Platelet Volume 10.7 fL (9.4-12.4); Monocytes Absolute Auto 0.8 X10*3/uL (0.1-1.2); Monocytes Percent Auto 12.6 % (2-11); Neutrophils Absolute Auto 4.4 x10*3/uL (2.0-8.3); Neutrophils Percent Auto 69.9 % (45-73); Platelet Count 211 X10*3/uL (160-400); Red Blood Count 4.13 X10*6/uL (4.60-5.80); White Blood Count 6.3 X10*3/uL (4.8-10.8)
[2023-10-10 12:07] LABS: INTERNATIONAL NORM RATIO 1.4 (0.9-1.1)
[2023-10-10 12:23] LABS: Alanine Aminotransferase 16 U/L (0-40); Albumin Level 3.7 g/dL (3.5-5.0); Alkaline Phosphatase 83 U/L (39-117); Anion Gap 13 (12-20); Aspartate Amino Transferase 31 U/L (5-37); B Type Natriuretic Peptide 454 pg/mL (<100); Bilirubin Total 0.6 mg/dL (0.0-1.0); Blood Urea Nitrogen 25 mg/dL (9-16); Carbon Dioxide 22 mmol/L (22-29); Chloride 108 mmol/L (96-108); Estimated Glomerular Filt Rate > 60; Glucose Random 106 mg/dL (60-115); Sodium 138 mmol/L (135-145); Total Protein 6.2 g/dL (6.5-8.0)
[2023-10-10 12:34] LABS: Troponin-I High Sensitivity 139.2 ng/L (<3.5-35.0)
[2023-10-10 12:53] VITALS: BP 92/48; PULSE 68; RESP 20; O2SAT 99
[2023-10-10 12:58] LABS: Influenza A PCR NEGATIVE (Negative); Influenza B PCR NEGATIVE (Negative); Resp Syncy Virus RNA Qual PCR NEGATIVE (Negative); SARS COV2 PCR INHOUSE NEGATIVE (Negative)
[2023-10-10 13:52] VITALS: BP 120/58
[2023-10-10 14:29] LABS: Troponin-I High Sensitivity 131.8 ng/L (<3.5-35.0)
[2023-10-10 15:04] VITALS: BP 104/52; PULSE 76; RESP 16; TEMP 36.6; O2SAT 99
== END 2023-10-10 15:04 | disposition home or self-care (01) ==
PROVIDERS: Emergency Provider Student in an Organized Health Care Education/Training Program
DX: R55 Syncope and collapse (principal); R06.02 Shortness of breath; I48.91 Unspecified atrial fibrillation; J45.909 Unspecified asthma, uncomplicated; Z95.1 Presence of aortocoronary bypass graft; Z87.891 Personal history of nicotine dependence; Z79.82 Long term (current) use of aspirin; Z79.899 Other long term (current) drug therapy; Z79.01 Long term (current) use of anticoagulants; Z03.818 Encounter for observation for suspected exposure to other biological agents ruled out
CPT/HCPCS: 0241U; 36415; 71045; 80053; 83880; 84484; 85025; 85610; 93005; 99283; 99284

== ENCOUNTER → 2023-10-10 11:33 | Outpatient (BNV) | payer MEDICARE, SELFPAY | PROVIDERS: Emergency Provider Student in an Organized Health Care Education/Training Program; Visit Provider Internal Medicine Cardiovascular Disease | DX: R94.31 Abnormal electrocardiogram [ECG] [EKG] (principal) | CPT/HCPCS: 93010 ==

== ENCOUNTER 2023-10-27 10:00 | Outpatient (RCR) | payer MEDICARE, SELFPAY | END 2023-11-27 12:57 | disposition home or self-care (01) | LOC: HO.CR 10:00 | PROVIDERS: PCP Internal Medicine Sports Medicine; Visit Provider Internal Medicine | DX: I50.9 Heart failure, unspecified (principal) | CPT/HCPCS: 93798 ==

== ENCOUNTER 2023-10-27 15:47 | Outpatient (AMB) | payer MEDICARE, SELFPAY ==
--- NOTE | 2023-10-28 08:27 | MHC.OFFVIS ---
Intake Visit Reasons: [employer] Check Allergies metoprolol Adverse Reaction (Uncoded 10/27/23 16:43) hypotensive narcotics Adverse Reaction (Uncoded 10/27/23 16:43) Nausea and Vomiting, hypotensive PFSH Medical History Biventricular ICD (implantable cardioverter-defibrillator) in place Syncope RBBB PVD (peripheral vascular disease) Hx of thyroid nodule GERD (gastroesophageal reflux disease) CAD (coronary artery disease) BPH (benign prostatic hyperplasia) Asthma Atrial fibrillation Surgical History Hx of CABG Hx of cardiac cath H/O right knee surgery H/O heart surgery Family History Mother Breast cancer Father Heart attack Brother Stomach cancer Brother Heart disease Social History Household Members: None Housing: House Do you presently have visiting nurse or other home services: No Alcohol intake: former Patient Tobacco Use Status: Former Tobacco user Quit Date: Years Smoked: 25 +/- Smoked in Last 30 Days: No Use of substances other than those prescribed or required for medical reasons: No Have you been hit, kicked, punched, or otherwise hurt by someone within the past year? If so, by whom?: No Is there a partner from a previous relationship who is making you feel unsafe now?: No Are you made to feel afraid or neglected: No Advance Directives: No Advance Directives Information Provided: No Do you have a plan to hurt others: No Plan Nutrition Risks: No Nutritional Risk Poor oral hygiene: No Office Procedures Cardiac Device Check Cardiac Device Check Details: ICD interrogated 10/26 as an emergency. IN [employer] D. Battery status more than 8 years. Normal lead parameters. 5 episodes of VT/VF. One shock delivered on 10/25/2023. Effects ventricular pacing about 90%. Overall, normal device function. [id number] Cardiac Device Check, multi lead implantable defibrillator Procedure code (CPT) selection complete Assessment & Plan Assessment & Plan (1) Syncope: Code(s): R55 - Syncope and collapse Category: Medical (2) Atrial fibrillation: Code(s): I48.91 - Unspecified atrial fibrillation Category: Medical (3) Cardiac arrest: Code(s): I46.9 - Cardiac arrest, cause unspecified Category: Medical (4) Biventricular ICD (implantable cardioverter-defibrillator) in place: Code(s): Z95.810 - Presence of automatic (implantable) cardiac defibrillator Category: Medical Plan x Coding Level of Care Code Procedure Only Diagnoses Syncope R55 Atrial fibrillation I48.91 Cardiac arrest I46.9 Biventricular ICD (implantable cardioverter-defibrillator) in place Z95.810 CPT Codes Cardiac Device Check - Cardiac Device 6: [id number] Cardiac Device Check, multi lead implantable defibrillator ([id number])
== END 2023-10-27 16:32 | disposition home or self-care (01) ==
PROVIDERS: Visit Provider Internal Medicine
DX: R55 Syncope and collapse (principal); I48.91 Unspecified atrial fibrillation; I46.9 Cardiac arrest, cause unspecified; Z95.810 Presence of automatic (implantable) cardiac defibrillator
CPT/HCPCS: 93010; 93284

== ENCOUNTER → 2023-10-27 15:47 | Outpatient (BNVA) | payer MEDICARE, SELFPAY | PROVIDERS: Visit Provider Internal Medicine ==

== ENCOUNTER 2023-10-27 16:33 | Inpatient (IN) | payer MEDICARE, SELFPAY ==
[2023-10-27 16:42] VITALS: BP 146/72; PULSE 92; RESP 20; TEMP 36.6; O2SAT 98; BMI 32.3
--- NOTE | 2023-10-27 16:42 | ED_ITS ---
HPI - General Adult General Chief complaint: Arrhythmia/Palpitations Stated complaint: coming from MD appt, pacemaker and heart were off Time Seen by Provider: 10/27/23 16:48 Source: patient and family Mode of arrival: ambulatory History of Present Illness HPI narrative: 82-year-old male with extensive cardiac history, recent biventricular ICD placement, experienced an episode on Friday and states that he thought he fell asleep, however at rehab today he had another episode where he became unconscious, this was reviewed by Dr. Asher who has identified after interrogating the device that patient has undergone 3 defibrillations events and on review of rhythm it appears that this was for an episode of torsades. Patient denies any issues of chest pain/shortness of breath/dizziness. Related Data Home Medications ?Medication ?Instructions ?Recorded ?Confirmed aspirin 81 mg tablet,delayed 81 mg PO DAILY 06/18/21 10/01/23 release (Adult Aspirin Regimen) cilostazol 50 mg tablet 50 mg PO BID 06/18/21 10/01/23 finasteride 5 mg tablet 5 mg PO DAILY 06/18/21 10/01/23 nitroglycerin 0.4 mg sublingual 0.4 mg sublingual Q5M PRN 06/18/21 10/01/23 tablet pantoprazole 40 mg tablet,delayed 40 mg PO BID 06/18/21 10/01/23 release fluticasone propionate 50 spray intranasal 03/26/22 10/01/23 mcg/actuation nasal spray,suspension bumetanide 1 mg tablet 1 mg PO DAILY PRN 07/21/23 10/01/23 trazodone 50 mg tablet 50 mg PO BEDTIME PRN 07/21/23 10/01/23 metoprolol succinate 25 mg 12.5 mg PO DAILY 09/03/23 10/01/23 tablet,extended release 24 hr Previous Rx's ?Medication ?Instructions ?Recorded allopurinol 100 mg tablet 100 mg PO DAILY 90 days #90 tabs 07/21/23 rivaroxaban 20 mg tablet (Xarelto) 20 mg PO DAILY #90 tabs 07/21/23 sacubitril 24 mg-valsartan 26 mg 0.5 tab PO BID 90 days #90 tabs 07/21/23 tablet (Entresto) gabapentin 600 mg tablet 600 mg PO BEDTIME 90 days #90 tabs 10/01/23 Allergies Allergy/AdvReac Type Severity Reaction Status Date / Time metoprolol AdvReac hypotensive Uncoded 10/27/23 16:43 narcotics AdvReac Nausea and Uncoded 10/27/23 16:43 Vomiting, hypotensive Review of Systems 2 Review of Systems: Pertinent positives and negatives as stated in [facility] Past Medical History Source: nursing notes reviewed Medical History Biventricular ICD (implantable cardioverter-defibrillator) in place Syncope RBBB PVD (peripheral vascular disease) Hx of thyroid nodule GERD (gastroesophageal reflux disease) CAD (coronary artery disease) BPH (benign prostatic hyperplasia) Asthma Atrial fibrillation Surgical History Hx of CABG Hx of cardiac cath H/O right knee surgery H/O heart surgery Family History Family History Mother Breast cancer Father Heart attack Brother Stomach cancer Brother Heart disease Social History Social History Alcohol intake: former Patient Tobacco Use Status: Former Tobacco user Quit Date: Years Smoked: 25 +/- Smoked in Last 30 Days: No Use of substances other than those prescribed or required for medical reasons: No Advance Directives: No Advance Directives Information Provided: No Do you have a plan to hurt others: No Plan Physical Exam ED Vital Signs: Vital Signs - 24 hr 10/27/23 16:42 Temperature 98 F Pulse Rate 92 Respiratory Rate 20 Blood Pressure 146/72 H Pulse Oximetry 98 Oxygen Delivery Method Room Air BMI result Body Mass Index 32.3 VITAL SIGNS: Reviewed. GENERAL: Well developed, well nourished, in no acute distress. HEAD: Normocephalic/atraumatic EYES: PERRLA, EOMI EARS: Ext canals without abnormality NOSE: Nares patent bilateral OROPHARYNX: no oral lesions noted, posterior pharynx clear NECK: Supple, no adenopathy LUNGS: Normal breath sounds. No adventitious sounds or accessory muscle use. SpO2<98> CARDIOVASCULAR: Regular rate and rhythm without noted murmurs, no JVD or lower extremity edema. ABDOMEN: Soft, non-tender, non-distended with bowel sounds. MUSCULOSKELETAL: No tenderness, deformities, or effusions noted on gross inspection. EXTREMITIES: No cyanosis, clubbing or edema. SKIN: Inspection of the skin reveals no rashes NEUROLOGIC: Alert and oriented x 4. Strength and sensation to light touch were grossly intact x 4. Course Course Course Narrative: This is a Rapid Medical Examination (RME) performed by Roxana Wang PA-C in triage. Full HPI, ROS, assessment and treatment plan per primary provider in the Main ED. 82-year-old male with history of cardiac arrest, HFrEF (EF 45%), s/p AICD, atrial fibrillation who presents the ER from cardiac rehab for evaluation after his AICD went off twice on Friday. Patient denies all physical complaints and states he feels great. He arrives with a long packet of interrogation from [employer] Plan: EKG, lab workup. Brought to room 5 Medications Administered Discontinued Medications Generic Name Dose Route Start Last Admin Trade Name Freq PRN Reason Stop Dose Admin Magnesium Sulfate 2 gm in 50 mls @ 150 mls/hr 10/27/23 16:48 10/27/23 16:57 Magnesium Sulfate/H2o IV 10/27/23 17:07 150 mls/hr ONCE ONE Administration Medical Decision Making Medical Decision Making [facility] Narrative: I received a phone call from Dr. Asher, requesting lab work, administration of magnesium sulfate, initiating amiodarone after labs and admission. I reviewed all investigations and hematologic indices are chronically stable without leukocytosis/thrombocytopenia and patient has a normocytic anemia. Chemistry indices do not demonstrate LIBRA or electrolyte derangements, high sensitivity troponin is chronically stable and patient is asymptomatic for chest pain, clinically no evidence of fluid overload although BNP is mildly elevated he denies any shortness of breath. Urinalysis is negative for UTI or hematuria. 1726: Update provided to Dr. Asher, agrees with amiodarone load of 150 and then initiation of infusion. 1732: I discussed case with inpatient hospitalist who accepts admission. Differential Diagnosis Differential Diagnoses: The differential diagnosis associated with the presentation includes Please see the discussion above Admission/Observation Consideration of admission/observation: Escalation of care including admission/observation considered Please see the discussion above Consult Healthcare Provider Management of the patient was discussed with: Hospitalist and Clinical Nurse Manager Please see the discussion above Lab Data [facility] Lab Attestation statement: I reviewed the patient's lab results. Please see the discussion above 10/27/23 16:54 10/27/23 16:54 Labs: Lab Results 10/27/23 10/27/23 Range/Units 16:54 17:02 WBC 7.1 (4.8-10.8) X10*3/uL RBC 4.32 L (4.60-5.80) X10*6/uL Hgb 11.9 L (14.0-18.0) g/dl Hct 36.6 L (42.0-52.0) % MCV 84.7 (80.0-98.0) fL MCH 27.5 (27.0-33.0) pg MCHC 32.5 (31.0-36.0) g/dl RDW 19.1 H (11.0-16.0) % Plt Count 233 (160-400) X10*3/uL MPV 10.8 (9.4-12.4) fL Immature Gran % (Auto) 0.3 (0.0-0.4) % Neut % (Auto) 66.9 (45-73) % Lymph % (Auto) 17.2 L (20-40) % [place] % (Auto) 12.5 H (2-11) % Eos % (Auto) 2.5 (0-4) % Baso % (Auto) 0.6 (0-2) % Lymph # (Auto) 1.2 (1.2-4.9) X10*3/uL [place] # (Auto) 0.9 (0.1-1.2) X10*3/uL Eos # (Auto) 0.2 (0.0-0.4) X10*3/uL Baso # (Auto) 0.0 (0.0-0.2) X10*3/uL Abs Immat Gran (auto) 0.02 (0.00-0.03) X10*3/uL Absolute Neuts (auto) 4.8 (2.0-8.3) x10*3/uL Absolute Nucleated RBC 0.000 (0.0-0.012) X10*3/uL Nucleated RBC % (auto) 0.0 (0.0-0.2) /100WBC Sodium 140 (135-145) mmol/L Potassium 4.2 (3.3-5.1) mmol/L Chloride 104 (96-108) mmol/L Carbon Dioxide 23 (22-29) mmol/L Anion Gap 17 (12-20) BUN 22 H (9-16) mg/dL Creatinine 0.86 (0.5-1.4) mg/dL Estim Creat Clear Calc 67.4 Estimated GFR > 60 Random Glucose 90 (60-115) mg/dL Calcium 9.8 D (8.4-10.2) mg/dL Magnesium 1.8 (1.6-2.6) mg/dL Total Bilirubin 0.7 (0.0-1.0) mg/dL Direct Bilirubin 0.3 (0.0-0.5) mg/dL AST 27 (5-37) U/L ALT 19 (0-40) U/L Alkaline Phosphatase 97 (39-117) U/L Troponin I High Sens 106.3 H* (<3.5-35.0) ng/L B-Natriuretic Peptide 332 H (<100) pg/mL Total Protein 7.1 (6.5-8.0) g/dL Albumin 4.4 (3.5-5.0) g/dL Urine Color Yellow Urine Appearance Clear Urine pH 5.5 (5.0-9.0) Ur Specific [place] 1.010 (1.005-1.025) Urine Protein Negative (Neg-Trace) mg/dL Urine Glucose (UA) Negative (Negative) mg/dL Urine Ketones Negative (Negative) mg/dL Urine Blood Negative (Negative) Urine Nitrite Negative (Negative) Ur Leukocyte Esterase Negative (Negative) Independent Interpretation I performed an independent interpretation of an: EKG Interpretation: Atrial sensed ventricular rhythm with occasional PVCs, HR-93, QRS and QTC without changes when compared to prior EKG on September/2023. These are the tracings obtained at cardiac rehab facility External Record Review External record reviewed: Outpatient record, Prior outpatient labs, Prior outpatient radiology and Outside ED record Chronic Conditions CAD, CHF Critical Care Time Critical Care Time Critical Care Time: Yes Total Critical Care Time: 45 Attestation: I personally attest to this time spent taking care of the patient. Discharge Plan Discharge Clinical Impression: Syncope, History of torsades de pointes Patient Disposition: Admitted As Inpatient Prescriptions: No Action pantoprazole 40 mg tablet,delayed release (DR/EC) 40 mg PO BID nitroglycerin 0.4 mg tablet, sublingual 0.4 mg sublingual Q5M PRN Rx Instructions: do not exceed 3 doses per episode finasteride 5 mg tablet 5 mg PO DAILY cilostazol 50 mg tablet 50 mg PO BID aspirin [Adult Aspirin Regimen] 81 mg tablet,delayed release (DR/EC) 81 mg PO DAILY fluticasone propionate 50 mcg/actuation spray,suspension intranasal gabapentin 600 mg tablet 600 mg PO BEDTIME 90 Days Qty: 90 1RF metoprolol succinate 25 mg tablet extended release 24 hr 12.5 mg PO DAILY trazodone 50 mg tablet 50 mg PO BEDTIME PRN bumetanide 1 mg tablet 1 mg PO DAILY PRN allopurinol 100 mg tablet 100 mg PO DAILY 90 Days Qty: 90 1RF Entresto 24-26 mg tablet 0.5 tab PO BID 90 Days Qty: 90 3RF Xarelto 20 mg tablet 20 mg PO DAILY Qty: 90 3RF Print Language: Belarusian
--- NOTE | 2023-10-27 16:44 | ECG_ITS ---
Test Reason : CHEST PAIN Blood Pressure : / mmHG Vent. Rate : 093 BPM Atrial Rate : 093 BPM P-R Int : 126 ms QRS Dur : 118 ms QT Int : 400 ms P-R-T Axes : 078 182 028 degrees QTc Int : 497 ms Atrial-sensed ventricular-paced rhythm with occasional Premature ventricular complexes Biventricular pacemaker detected Abnormal ECG When compared with ECG of 10-OCT-2023 11:36, Premature ventricular complexes are now Present Vent. rate has increased BY 21 BPM Referred By: Ann Wang Electronically Signed By:HILLARY GEIGER MD
[2023-10-27] MEDS: Magnesium Sulfate/H2O 2 GM/50 ML PIGGYBACK IV (16:57)
[2023-10-27 16:58] LABS: MANUAL DIFF FLAG NO
[2023-10-27 17:00] LABS: Basophils Percent Auto 0.6 % (0-2); Eosinophils Absolute Auto 0.2 X10*3/uL (0.0-0.4); Eosinophils Percent Auto 2.5 % (0-4); Hematocrit 36.6 % (42.0-52.0); Hemoglobin 11.9 g/dl (14.0-18.0); Imm Gran Abs Auto 0.02 X10*3/uL (0.00-0.03); Imm Gran Pct Auto 0.3 % (0.0-0.4); Lymphocytes Absolute Auto 1.2 X10*3/uL (1.2-4.9); Lymphocytes Percent Auto 17.2 % (20-40); Mean Corpuscular HGB Conc 32.5 g/dl (31.0-36.0); Mean Corpuscular Hemoglobin 27.5 pg (27.0-33.0); Mean Corpuscular Volume 84.7 fL (80.0-98.0); Mean Platelet Volume 10.8 fL (9.4-12.4); Monocytes Absolute Auto 0.9 X10*3/uL (0.1-1.2); Monocytes Percent Auto 12.5 % (2-11); Neutrophils Absolute Auto 4.8 x10*3/uL (2.0-8.3); Neutrophils Percent Auto 66.9 % (45-73); Platelet Count 233 X10*3/uL (160-400); Red Blood Count 4.32 X10*6/uL (4.60-5.80); Red Cell Distribution Width 19.1 % (11.0-16.0); White Blood Count 7.1 X10*3/uL (4.8-10.8)
--- NOTE | 2023-10-27 17:04 | PC.NURSE ---
this rn assumed care of pt from triage. pt daughter at bedside. dr mcleod to bedside. 20g iv placed in L AC, labs obtained and sent ekg obtained pt placed on environmental monitoring specialist pacer pads placed per dr mcleod urine sample sent down to lab magnesium gtt infusing
[2023-10-27 17:10] LABS: Appearance Urine Clear; Color Urine Yellow; Glucose Urine UA Negative (Negative); Leukocyte Esterase Urine Negative (Negative); Nitrite Urine Negative (Negative); PH 5.5 (5.0-9.0); Urine Blood Negative (Negative); Urine Ketones Negative (Negative); Urine Protein Negative (Neg-Trace)
[2023-10-27 17:12] LABS: Alanine Aminotransferase 19 U/L (0-40); Albumin Level 4.4 g/dL (3.5-5.0); Alkaline Phosphatase 97 U/L (39-117); Anion Gap 17 (12-20); Aspartate Amino Transferase 27 U/L (5-37); Bilirubin Direct 0.3 mg/dL (0.0-0.5); Bilirubin Total 0.7 mg/dL (0.0-1.0); Blood Urea Nitrogen 22 mg/dL (9-16); Calcium 9.8 mg/dL (8.4-10.2); Carbon Dioxide 23 mmol/L (22-29); Chloride 104 mmol/L (96-108); Creatinine Clr Calc Pharmacy 67.4; Estimated Glomerular Filt Rate > 60; Glucose Random 90 mg/dL (60-115); Magnesium 1.8 mg/dL (1.6-2.6); Potassium 4.2 mmol/L (3.3-5.1); Sodium 140 mmol/L (135-145); Total Protein 7.1 g/dL (6.5-8.0)
[2023-10-27 17:18] LABS: B Type Natriuretic Peptide 332 pg/mL (<100)
[2023-10-27 17:29] LABS: Troponin-I High Sensitivity 106.3 ng/L (<3.5-35.0)
[2023-10-27 17:41] VITALS: BP 158/65; PULSE 95; RESP 15; TEMP 36.6; O2SAT 94
[2023-10-27] MEDS: Amiodarone/Dextrose 150 MG/100 ML PLAST..BAG 600 MG IV (17:42)
--- NOTE | 2023-10-27 18:08 | P.HPHOSP_ITS ---
History of Present Illness Date of Service: 10/27/23 Attending physician on admission: Segun Flores Chief Complaint: syncope 82-year-old male with history of cardiac arrest s/p biventricular ICD placement, paroxysmal atrial fibrillation anticoagulated with Eliquis, coronary artery disease, peripheral vascular disease, GERD, unspecified asthma, and obstructive sleep apnea presented to the ED earlier today from cardiac rehab where his defibrillator went off twice while on a treadmill. The patient denies any syncope at that time, shortness of breath, lightheadedness, palpitations, or chest pain. States he also had an episode where he thought he fell asleep on Friday but woke up and was disoriented, probably syncope. His ICD was interrogated by Cardiology who noted 3 episodes of defibrillation with torsades rhythm noted at that time. While in the ED, vital signs stable. Defibrillation pads were placed. Hematology studies unremarkable except for a stable normocytic anemia with H/H 11.9/36.6%. Renal function electrolyte levels normal, specifically potassium 4.2. Magnesium borderline at 1.8. Has chronically elevated troponin with level today 106.3, BNP 332. He does report that he has been experiencing some increased urinary frequency today with suprapubic pressure. However, urinalysis unremarkable. EKG shows atrial sensed ventricular paced rhythm with occasional PVCs, rate 93 without any acute ischemic changes. ED discuss case with Cardiology recommending amiodarone load and admission to med/tele. Also given 2g IV mag in the ED. Review of Systems 2 Review of Systems: General: No fevers, malaise, unintentional weight loss HEENT: No blurred vision, diplopia. No sore throat, nasal congestion, rhinorrhea, sinus pain, ear pain Cardiovascular: No chest pain, palpitations, or leg edema Respiratory: No shortness of breath, wheezing, cough GI: No abdominal pain, nausea, vomiting, diarrhea, constipation, melena, hematochezia : +increased urinary frequency. No dysuria, hematuria, decreased urinary output MSK: No myalgia, back pain Neuro: No headaches, weakness, paresthesias Skin: No rashes or lesions [facility] Medical History Biventricular ICD (implantable cardioverter-defibrillator) in place Syncope RBBB PVD (peripheral vascular disease) Hx of thyroid nodule GERD (gastroesophageal reflux disease) CAD (coronary artery disease) BPH (benign prostatic hyperplasia) Asthma Atrial fibrillation Family History Mother Breast cancer Father Heart attack Brother Stomach cancer Brother Heart disease Surgical History Hx of CABG Hx of cardiac cath H/O right knee surgery H/O heart surgery Social History Alcohol intake: former Patient Tobacco Use Status: Former Tobacco user Quit Date: Years Smoked: 25 +/- Smoked in Last 30 Days: No Use of substances other than those prescribed or required for medical reasons: No Advance Directives: No Advance Directives Information Provided: No Do you have a plan to hurt others: No Plan Meds Allergies Allergy/AdvReac Type Severity Reaction Status Date / Time metoprolol AdvReac hypotensive Uncoded 10/27/23 16:43 narcotics AdvReac Nausea and Uncoded 10/27/23 16:43 Vomiting, hypotensive Active Medications: Current Medications Amiodarone HCl 900 mg/ Sodium (Chloride) 518 mls @ 34.533 mls/hr IVCONT .Q15H1M [facility]; Protocol Home Medications ?Medication ?Instructions ?Recorded ?Confirmed ?Last Taken ?Type aspirin 81 mg tablet,delayed 81 mg PO DAILY 06/18/21 10/01/23 Unknown History release (Adult Aspirin Regimen) cilostazol 50 mg tablet 50 mg PO BID 06/18/21 10/01/23 Unknown History finasteride 5 mg tablet 5 mg PO DAILY 06/18/21 10/01/23 Unknown History nitroglycerin 0.4 mg sublingual 0.4 mg sublingual Q5M PRN 06/18/21 10/01/23 Unknown History tablet pantoprazole 40 mg tablet,delayed 40 mg PO BID 06/18/21 10/01/23 Unknown History release fluticasone propionate 50 spray intranasal 03/26/22 10/01/23 Unknown History mcg/actuation nasal spray,suspension bumetanide 1 mg tablet 1 mg PO DAILY PRN 07/21/23 10/01/23 Unknown History trazodone 50 mg tablet 50 mg PO BEDTIME PRN 07/21/23 10/01/23 Unknown History metoprolol succinate 25 mg 12.5 mg PO DAILY 09/03/23 10/01/23 Unknown History tablet,extended release 24 hr Physical Exam 2 Vital Signs and Narrative: Vital Signs: Last Vital Signs Temp 97.9 F 10/27/23 17:41 Pulse 95 10/27/23 17:41 Resp 15 10/27/23 17:41 BP 158/65 H 10/27/23 17:41 Pulse Ox 94 10/27/23 17:41 O2 Del Method Room Air 10/27/23 17:41 BMI result Body Mass Index 32.3 Constitutional - Awake and Alert, No apparent distress Eyes - PERRLA, EOMI Cardiovascular - S1S2, RRR, No edema Respiratory - Normal lung expansion, Normal respiratory effort, No respiratory distress, CTA bilaterally Gastrointestinal - mild suprapubic ttp. ND; +BS; No rebound or guarding Extremities - no calf tenderness bilaterally, no swelling Skin - Warm/Dry Neurological - Alert & oriented x3 Psychological - Appropriate affect Results Labs 10/27/23 16:54 10/27/23 16:54 Labs: Laboratory Results - last 24 hr 10/27/23 10/27/23 16:54 17:02 MCV 84.7 MCH 27.5 MCHC 32.5 RDW 19.1 H Plt Count 233 MPV 10.8 Immature Gran % (Auto) 0.3 Neut % (Auto) 66.9 Lymph % (Auto) 17.[address] [place] % (Auto) 12.5 H Eos % (Auto) 2.5 Baso % (Auto) 0.6 Lymph # (Auto) 1.2 [place] # (Auto) 0.9 Eos # (Auto) 0.2 Baso # (Auto) 0.0 Abs Immat Gran (auto) 0.02 Absolute Neuts (auto) 4.8 Absolute Nucleated RBC 0.000 Nucleated RBC % (auto) 0.0 Anion Gap 17 Estim Creat Clear Calc 67.4 Estimated GFR > 60 Random Glucose 90 Calcium 9.8 D Magnesium 1.8 Total Bilirubin 0.7 Direct Bilirubin 0.3 AST 27 ALT 19 Alkaline Phosphatase 97 Troponin I High Sens 106.3 H* B-Natriuretic Peptide 332 H Total Protein 7.1 Albumin 4.4 Urine Color Yellow Urine Appearance Clear Urine pH 5.5 Ur Specific [place] 1.010 Urine Protein Negative Urine Glucose (UA) Negative Urine Ketones Negative Urine Blood Negative Urine Nitrite Negative Ur Leukocyte Esterase Negative Assessment and Plan (1) History of torsades de pointes: Status: Acute (2) Syncope: Status: Acute Plan 82-year-old male with history of cardiac arrest s/p biventricular ICD placement, paroxysmal atrial fibrillation anticoagulated with Eliquis, coronary artery disease, peripheral vascular disease, GERD, unspecified asthma, and obstructive sleep apnea presented to the ED earlier today from cardiac rehab where his defibrillator went off twice while on a treadmill. Device interrogated by Cardiology with 3 defibrillations noted with torsades rhythm noted at that time. He will be admitted for amiodarone load and further monitoring of torsades de pointes. #Torsades de pointes -hx cardiac arrest with biventricular ICD inplace -mag 1.8, repleted with 2g in ED. Continue max oxide 400mg bid. Keep mag >2.0, K>4.0 -Loaded with amiodorone, continue amiodorone drip per cardiology -cardiology consult -keep defib pads in place -monitor on tele #Syncope -due to above, plan as above #CAD/HLD -asa,bb, statin #HFrEF -entresto, bb, bumex #Paroxysmal atrial fibrillation- rate controlled -continue Xarelto for anticoagulation -continue metoprolol for rate control -being loaded with amiodarone as above # peripheral artery disease -continue cilostazol, aspirin # GERD -PPI # mild intermittent asthma -no exacerbation, albuterol p.r.n. DVT prophylaxis-Xarelto Full code Patient requires inpatient stay at least 2 midnights for continuous cardiac monitoring and amiodarone load due to torsades de [place] as well as expert consultation Quality Stroke Does the patient have a stroke diagnosis?: No VTE Prior VTE?: No VTE Risk Level:: Medical - moderate - high VTE Device Contraindication: Treatment Not Indicated VTE Drug Contraindication: N/A - Med Ordered
[2023-10-27] MEDS: Amiodarone HCL 900 MG in 0.9 % Sodium Chloride 500 ML 34.53 MG IVCONT (18:36)
[2023-10-27 21:11] VITALS: BMI 33.9
--- NOTE | 2023-10-27 21:21 | PM.EVENT ---
Event Note Date of Service: 10/27/23 Event Note: Patient arrived to his room from ED and was found to be agitated, comabtive and confused. Security was contacted to assist. Haldol 5 mg IM X1 administered. Will also give half dose of his scheduled Zyprexa as well as Trazodone. Soft restraints were applied as well. Time Spent With Patient Time: Total time managing care of this patient today ____ minutes.
[2023-10-27 21:32] VITALS: BP 134/63; PULSE 78; RESP 16; TEMP 36.4; O2SAT 95
--- NOTE | 2023-10-27 22:20 | PHA.MEDREC ---
Pharmacy Consult ? Medication Reconciliation Pharmacy has completed the medication reconciliation. Spoke to patient and confirmed medication list. Patient said he doesn't take metoprolol, trazodone nor olmesartan. He only takes pantoprazole once a day in the morning, xarelto with supper and he takes half a tablet of entresto twice a day.
--- NOTE | 2023-10-27 22:47 | PC.RT ---
pt refused CPAP, does not like our masks, will try to bring in his own if he stays longer then a day
[2023-10-27] MEDS: Rivaroxaban 20 MG TABLET PO (23:38)
[2023-10-27] MEDS: Gabapentin 600 MG TABLET PO (23:38)
[2023-10-27] MEDS: Atorvastatin Calcium 40 MG TABLET PO (23:38)
[2023-10-27 23:41] VITALS: BP 128/57; PULSE 77; RESP 16; TEMP 36.5; O2SAT 94
[2023-10-28] VITALS (8 sets, daily range): BP systolic 97–130; BP diastolic 34–60; PULSE 59–77; RESP 14–18; TEMP 36–36.9; O2SAT 94–99
--- NOTE | 2023-10-28 08:16 | PC.NURSE ---
Addendum entered by Tersea Moses RN 10/28/23 08:55: new IV access #22 by Charge nurse , Amiodorone drip restarted , warm compress apply to infiltrated site on the lt lower arm Original Note: Amiodorone drip infiltrated to lt lower arm, medication paused , will obtain new IV access, MD Blas notified
[2023-10-28 08:27] LABS: MANUAL DIFF FLAG NO
[2023-10-28 08:31] LABS: Basophils Percent Auto 0.6 % (0-2); Eosinophils Absolute Auto 0.3 X10*3/uL (0.0-0.4); Eosinophils Percent Auto 3.6 % (0-4); Hematocrit 33.3 % (42.0-52.0); Hemoglobin 10.8 g/dl (14.0-18.0); Imm Gran Abs Auto 0.03 X10*3/uL (0.00-0.03); Imm Gran Pct Auto 0.4 % (0.0-0.4); Lymphocytes Absolute Auto 1.1 X10*3/uL (1.2-4.9); Lymphocytes Percent Auto 16.6 % (20-40); Mean Corpuscular HGB Conc 32.4 g/dl (31.0-36.0); Mean Corpuscular Hemoglobin 27.1 pg (27.0-33.0); Mean Corpuscular Volume 83.5 fL (80.0-98.0); Mean Platelet Volume 10.9 fL (9.4-12.4); Monocytes Absolute Auto 0.8 X10*3/uL (0.1-1.2); Monocytes Percent Auto 12.3 % (2-11); Neutrophils Absolute Auto 4.6 x10*3/uL (2.0-8.3); Neutrophils Percent Auto 66.5 % (45-73); Platelet Count 207 X10*3/uL (160-400); Red Blood Count 3.99 X10*6/uL (4.60-5.80); Red Cell Distribution Width 19.4 % (11.0-16.0); White Blood Count 6.9 X10*3/uL (4.8-10.8)
[2023-10-28 08:44] LABS: Anion Gap 15 (12-20); Blood Urea Nitrogen 17 mg/dL (9-16); Calcium 9.2 mg/dL (8.4-10.2); Carbon Dioxide 21 mmol/L (22-29); Chloride 109 mmol/L (96-108); Creatinine Clr Calc Pharmacy 78.2; Estimated Glomerular Filt Rate > 60; Glucose Random 105 mg/dL (60-115); Potassium 3.9 mmol/L (3.3-5.1); Sodium 141 mmol/L (135-145)
[2023-10-28] MEDS: Sacubitril/Valsartan 24/26 1 TAB TABLET 0.5 TAB PO (08:54)
[2023-10-28] MEDS: Magnesium Oxide 400 MG TABLET PO ×2 (08:55→17:20)
[2023-10-28] MEDS: Amiodarone HCL 900 MG in 0.9 % Sodium Chloride 500 ML 17.27 MG IVCONT (09:22)
[2023-10-28] MEDS: 0.9 % Sodium Chloride Flush 3 ML SYRINGE IVFLUSH ×3 (09:28→22:12)
[2023-10-28] MEDS: Amiodarone HCL 200 MG TABLET 400 MG PO ×2 (10:18→22:10)
[2023-10-28] MEDS: Metoprolol Tartrate 25 MG TABLET PO ×2 (10:19→22:08)
--- NOTE | 2023-10-28 11:12 | PM.CNCAR ---
History of Present Illness History of Present Illness Date of Service: 10/28/23 Requesting physician: Nicole Blas Consult reason: other (ICD discharge, ventricular arrhythmias) Chief complaint: torsades Narrative: I was consulted to see Sherman in cardiology consultation today due to ICD discharge related to VF arrest with appropriate shock. Patient subsequently was also noted to have multiple nonsustained episodes and during cardiac rehab was noted to have polymorphic VT which was of sustaining. Patient has prior history of ischemic cardiomyopathy in May having out of hospital cardiac arrest at this [facility], successfully resuscitated and subsequent workup done in [place] at shown LVEF of 30% with patent grafts by cardiac catheterization although [place] coronary anatomy is not available to me. Patient subsequently underwent a Bi V ICD placement was started on medical therapy. Since then has done well and was doing well with no symptoms of angina. Over the weekend after he came from a walk he said down on the sofa and he felt like he would gone to sleep and had woke up from a jolt and felt like somebody had burst of balm in his chest. However he did not realize what it was. Subsequently we noted that he had VF arrest and was brought to the office yesterday and confirmed by interrogation that he had a VF event that was successfully resuscitated at home. He was admitted for IV amiodarone which was started yesterday. Also given magnesium given his borderline low magnesium at 1.8. About a week ago his metoprolol was withheld due to low blood pressure. He is continued on Entresto. He takes bumetanide as need be. Has not had any progressive heart failure symptoms. Since being on amiodarone he has not had significant arrhythmias while in the hospital. Review of Systems Constitutional: Constitutional: Reports no additional constitutional complaints Cardiovascular: Cardiovascular: Denies chest pain with activity, Reports syncope, Denies lightheadedness, Denies palpitations, Denies dyspnea, Denies dyspnea on exertion and Reports other (ICD discharge) Respiratory: Respiratory: Reports no additional respiratory complaints, Denies dyspnea and Denies dyspnea on exertion Gastrointestinal: Gastrointestinal: Reports no additional gastrointestinal complaints Genitourinary: Genitourinary: Reports no additional male genitourinary complaints Musculoskeletal: Musculoskeletal: Reports no additional musculoskeletal complaints Integumentary/Breasts: Skin/Breast: Reports system reviewed and no additional complaints, except as docu Neurologic: Reports system reviewed and no additional complaints, except as documented and Reports syncope Endocrine: Endocrine: Denies palpitations [facility] Past Medical History Medical History Biventricular ICD (implantable cardioverter-defibrillator) in place Syncope RBBB PVD (peripheral vascular disease) Hx of thyroid nodule GERD (gastroesophageal reflux disease) CAD (coronary artery disease) BPH (benign prostatic hyperplasia) Asthma Atrial fibrillation Family History Family History Mother Breast cancer Father Heart attack Brother Stomach cancer Brother Heart disease Surgical History Surgical History Hx of CABG Hx of cardiac cath H/O right knee surgery H/O heart surgery Social History Social History Household Members: None Housing: House Do you presently have visiting nurse or other home services: No Alcohol intake: former Patient Tobacco Use Status: Former Tobacco user Quit Date: Years Smoked: 25 +/- Meds Allergies Allergy/AdvReac Type Severity Reaction Status Date / Time metoprolol AdvReac hypotensive Uncoded 10/27/23 16:43 narcotics AdvReac Nausea and Uncoded 10/27/23 16:43 Vomiting, hypotensive Active Medications: Current Medications Acetaminophen (Acetaminophen 325 Mg Tablet) 650 mg PO Q6H PRN PRN Reason: Fever Acetaminophen (Acetaminophen 325 Mg Tablet) 650 mg PO Q6H PRN PRN Reason: Pain, Mild (Pain Scale 1-3) Acetaminophen (Acetaminophen 325 Mg Tablet) 650 mg PO Q6H PRN PRN Reason: Headache Amiodarone HCl (Amiodarone Hcl 200 Mg Tablet) 400 mg PO BID [facility] Last Admin: 10/28/23 10:18 Dose: 400 mg Atorvastatin Calcium (Atorvastatin Calcium 40 Mg Tablet) 40 mg PO BEDTIME [facility] Last Admin: 10/27/23 23:38 Dose: 40 mg Calcium Carbonate (Calcium Carbonate 750 Mg Tab.Chew) 750 mg PO Q6H PRN PRN Reason: Heartburn Cilostazol (Cilostazol 50 Mg Tablet) 50 mg PO BID [facility] Last Admin: 10/27/23 23:41 Dose: Not Given Gabapentin (Gabapentin 600 Mg Tablet) 600 mg PO BEDTIME [facility] Last Admin: 10/27/23 23:38 Dose: 600 mg Magnesium Hydroxide (Milk Of Magnesia 30 Ml Oral.Susp) 30 ml PO DAILY PRN PRN Reason: Constipation Magnesium Oxide (Magnesium Oxide 400 Mg Tablet) 400 mg PO BIDPC [facility] Last Admin: 10/28/23 08:55 Dose: 400 mg Melatonin (Melatonin 3 Mg Tablet) 6 mg PO BEDTIME PRN PRN Reason: Insomnia Metoprolol Tartrate (Metoprolol Tartrate 25 Mg Tablet) 25 mg PO BID [facility]; Protocol Last Admin: 10/28/23 10:19 Dose: 25 mg Polyethylene Glycol (Polyethylene Glycol 3350 17 Gm Powd.Pack) 17 gm PO DAILY PRN PRN Reason: Constipation Rivaroxaban (Rivaroxaban 20 Mg Tablet) 20 mg PO DAILY@1700 [facility] Last Admin: 10/27/23 23:38 Dose: 20 mg Sodium Chloride (0.9 % Sodium Chloride Flush 3 Ml Syringe) 3 ml IVFLUSH QSHIFT [facility] Last Admin: 10/28/23 09:28 Dose: 3 ml Home Medications ?Medication ?Instructions ?Recorded ?Confirmed ?Last Taken ?Type aspirin 81 mg tablet,delayed 81 mg PO DAILY@0900 06/18/21 10/27/23 10/27/23 History release (Adult Aspirin Regimen) cilostazol 50 mg tablet 50 mg PO BID 06/18/21 10/27/23 10/27/23 History finasteride 5 mg tablet 5 mg PO DAILY@0900 06/18/21 10/27/23 10/27/23 History nitroglycerin 0.4 mg sublingual 0.4 mg sublingual Q5M PRN Chest 06/18/21 10/27/23 Unknown History tablet Pain pantoprazole 40 mg tablet,delayed 40 mg PO DAILY@0630 06/18/21 10/27/23 10/27/23 History release bumetanide 1 mg tablet 1 mg PO DAILY PRN Edema 07/21/23 10/27/23 Unknown History allopurinol 100 mg tablet 100 mg PO DAILY@0900 10/27/23 10/27/23 10/27/23 History atorvastatin 40 mg tablet 40 mg PO BEDTIME 10/27/23 10/27/23 10/26/23 History rivaroxaban 20 mg tablet (Xarelto) 20 mg PO QPM 10/27/23 10/27/23 10/26/23 History Physical Exam Vital Signs: Vital Signs: Last Vital Signs Temp 97.3 F 10/28/23 11:00 Pulse 70 10/28/23 11:00 Resp 18 10/28/23 11:00 BP 124/60 10/28/23 11:00 Pulse Ox 99 10/28/23 11:00 O2 Del Method Room Air 10/28/23 11:00 O2 Flow Rate 3 10/28/23 00:00 BMI result Body Mass Index 33.9 Const: General: cooperative, comfortable, no acute distress, well developed, alert and awake Nutritional Appearance: well nourished and overweight Orientation/consciousness: patient oriented x3 Limitations: no limitations HEENT: Head: Yes normocephalic and Yes atraumatic Neck: Neck: Yes trachea midline, Yes supple and Yes no JVD Resp: Effort & Inspection: normal respiratory effort Auscultation: clear to auscultation bilaterally Cardio: Jugular venous distension: no JVD Palpation: abnormal PMI displaced PMI Rate: regular rate Rhythm: regular rhythm Heart sounds: S1 normal heart sound present, S2 normal heart sound present, no click, no gallops, no murmurs and no rubs GI: Auscultation: normal bowel sounds Skin: General skin exam: no rashes or lesions noted Neuro: General: patient oriented x3 and no focal motor deficits Extrem: General: Yes no clubbing, cyanosis or edema Objective Labs and Meds 10/28/23 07:55 10/28/23 07:55 Lab results: Laboratory Results - last 24 hr 10/27/23 10/27/23 10/28/23 16:54 17:02 07:55 WBC 7.1 6.9 RBC 4.32 L 3.99 L Hgb 11.9 L 10.8 L Hct 36.6 L 33.3 L MCV 84.7 83.5 MCH 27.5 27.1 MCHC 32.5 32.4 RDW 19.1 H 19.4 H Plt Count 233 207 MPV 10.8 10.9 Immature Gran % (Auto) 0.3 0.4 Neut % (Auto) 66.9 66.5 Lymph % (Auto) 17.2 L 16.6 L [place] % (Auto) 12.5 H 12.3 H Eos % (Auto) 2.5 3.6 Baso % (Auto) 0.6 0.6 Lymph # (Auto) 1.2 1.1 L [place] # (Auto) 0.9 0.8 Eos # (Auto) 0.2 0.3 Baso # (Auto) 0.0 0.0 Abs Immat Gran (auto) 0.02 0.03 Absolute Neuts (auto) 4.8 4.6 Absolute Nucleated RBC 0.000 0.000 Nucleated RBC % (auto) 0.0 0.0 Sodium 140 141 Potassium 4.2 3.9 Chloride 104 109 H Carbon Dioxide 23 21 L Anion Gap 17 15 BUN 22 H 17 H Creatinine 0.86 0.76 Estim Creat Clear Calc 67.4 78.2 Estimated GFR > 60 > 60 Random Glucose 90 105 Calcium 9.8 D 9.2 D Magnesium 1.8 Total Bilirubin 0.7 Direct Bilirubin 0.3 AST 27 ALT 19 Alkaline Phosphatase 97 Troponin I High Sens 106.3 H* B-Natriuretic Peptide 332 H Total Protein 7.1 Albumin 4.4 Urine Color Yellow Urine Appearance Clear Urine pH 5.5 Ur Specific [place] 1.010 Urine Protein Negative Urine Glucose (UA) Negative Urine Ketones Negative Urine Blood Negative Urine Nitrite Negative Ur Leukocyte Esterase Negative Assessment and Plan (1) Polymorphic ventricular tachycardia: Status: Acute Polymorphic ventricular tachycardia in this elderly gentleman appears to be most likely ischemic given no significant QT prolongation at rest. He has not on any medication that will potentially prolonged QT. His electrolytes were within normal limits. His metoprolol was recently discontinued which could increase ischemic risk. However reported patent grafts by cardiac catheterization [place] in May it is possible that he has significant underlying [place] coronary artery disease. Will need to review that. Will eventually require ischemic workup once discharge. For now I would continue with amiodarone switch him to 400 mg b.i.d. for 2 weeks followed by 200 mg daily on a maintenance dose. Will also resume his metoprolol 25 mg b.i.d. and given his prior history of hypertension switch his Entresto to valsartan 20 mg b.i.d.. Continue to monitor for 1 more day. Continue monitor EKG and full disclosure cardiac monitoring over the next 24 hours. If he has no significant ventricular arrhythmias, plan for discharge tomorrow. Okay to give him magnesium oxide 200 mg daily. Will continue to follow with you Procedures Date of Service Date of Service: 10/28/23
--- NOTE | 2023-10-28 12:56 | MHC.CM.PN ---
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 PT VERIFIES PCP ON FILE IS CORRECT AND HAS BEEN EDUCATED ON AND COMPLETED A HCP, COPY UPLOADED TO [facility] AND PLACED IN PAPER CHART.
[2023-10-28] MEDS: cilostazoL 50 MG TABLET PO ×2 (14:13→22:08)
--- NOTE | 2023-10-28 14:28 | P.PNIM_ITS ---
Subjective Subjective Date of Service: 10/28/23 Interval History: syncope Review of Systems no new episodes denies any chest pain or sob or palpatations Physical Exam 2 Vital Signs: Vital Signs: Last Vital Signs Temp 97.3 F 10/28/23 11:00 Pulse 70 10/28/23 11:00 Resp 18 10/28/23 11:00 BP 124/60 10/28/23 11:00 Pulse Ox 99 10/28/23 11:00 O2 Del Method Room Air 10/28/23 11:00 O2 Flow Rate 3 10/28/23 00:00 BMI result Body Mass Index 33.9 Appearance: Alert.? Oriented X3.? cvs: rrr, [id number] , no murmur res: clear to auscultation ,no rhonchii or wheezing abd: no rebound or guarding ,nt, bs present. ext pulses present , no cyanosis . neuro: axo3 , nonfocal. Objective Data Active Medications Acetaminophen (Acetaminophen 325 Mg Tablet) 650 mg PO Q6H PRN PRN Reason: Fever Acetaminophen (Acetaminophen 325 Mg Tablet) 650 mg PO Q6H PRN PRN Reason: Pain, Mild (Pain Scale 1-3) Acetaminophen (Acetaminophen 325 Mg Tablet) 650 mg PO Q6H PRN PRN Reason: Headache Amiodarone HCl (Amiodarone Hcl 200 Mg Tablet) 400 mg PO BID [facility] Last Admin: 10/28/23 10:18 Dose: 400 mg Documented By: NABEEL Atorvastatin Calcium (Atorvastatin Calcium 40 Mg Tablet) 40 mg PO BEDTIME [facility] Last Admin: 10/27/23 23:38 Dose: 40 mg Documented By: MAHIN Calcium Carbonate (Calcium Carbonate 750 Mg Tab.Chew) 750 mg PO Q6H PRN PRN Reason: Heartburn Cilostazol (Cilostazol 50 Mg Tablet) 50 mg PO BID [facility] Last Admin: 10/28/23 14:13 Dose: 50 mg Documented By: NABEEL Gabapentin (Gabapentin 600 Mg Tablet) 600 mg PO BEDTIME [facility] Last Admin: 10/27/23 23:38 Dose: 600 mg Documented By: MAHIN Magnesium Hydroxide (Milk Of Magnesia 30 Ml Oral.Susp) 30 ml PO DAILY PRN PRN Reason: Constipation Magnesium Oxide ([facility]ide 400 Mg [facility]t) [facility] Last Admin: 10/28/23 08:55 Dose: 400 mg Documented By: NABEEL Melatonin (Melatonin 3 Mg Tablet) 6 mg PO BEDTIME PRN PRN Reason: Insomnia Metoprolol Tartrate (Metoprolol Tartrate 25 Mg Tablet) 25 mg PO BID [facility]; Protocol Last Admin: 10/28/23 10:19 Dose: 25 mg Documented By: NABEEL Polyethylene Glycol (Polyethylene Glycol 3350 17 Gm Powd.Pack) 17 gm PO DAILY PRN PRN Reason: Constipation Rivaroxaban (Rivaroxaban 20 Mg Tablet) 20 mg PO DAILY@1700 [facility] Last Admin: 10/27/23 23:38 Dose: 20 mg Documented By: MAHIN Sodium Chloride (0.9 % Sodium Chloride Flush 3 Ml Syringe) 3 ml IVFLUSH QSHIFT [facility] Last Admin: 10/28/23 14:15 Dose: 3 ml Documented By: NABEEL Valsartan (Valsartan 40 Mg Tablet) 20 mg PO BID [facility]; Protocol Labs 10/28/23 07:55 10/28/23 07:55 Labs: Laboratory Results - last 24 hr 10/27/23 10/27/23 10/28/23 16:54 17:02 07:55 MCV 84.7 83.5 MCH 27.5 27.1 MCHC 32.5 32.4 RDW 19.1 H 19.4 H Plt Count 233 207 MPV 10.8 10.9 Immature Gran % (Auto) 0.3 0.4 Neut % (Auto) 66.9 66.5 Lymph % (Auto) 17.2 L 16.6 L [place] % (Auto) 12.5 H 12.3 H Eos % (Auto) 2.5 3.6 Baso % (Auto) 0.6 0.6 Lymph # (Auto) 1.2 1.1 L [place] # (Auto) 0.9 0.8 Eos # (Auto) 0.2 0.3 Baso # (Auto) 0.0 0.0 Abs Immat Gran (auto) 0.02 0.03 Absolute Neuts (auto) 4.8 4.6 Absolute Nucleated RBC 0.000 0.000 Nucleated RBC % (auto) 0.0 0.0 Anion Gap 17 15 Estim Creat Clear Calc 67.4 78.2 Estimated GFR > 60 > 60 Random Glucose 90 105 Calcium 9.8 D 9.2 D Magnesium 1.8 2.0 Total Bilirubin 0.7 Direct Bilirubin 0.3 AST 27 ALT 19 Alkaline Phosphatase 97 Troponin I High Sens 106.3 H* B-Natriuretic Peptide 332 H Total Protein 7.1 Albumin 4.4 Urine Color Yellow Urine Appearance Clear Urine pH 5.5 Ur Specific [place] 1.010 Urine Protein Negative Urine Glucose (UA) Negative Urine Ketones Negative Urine Blood Negative Urine Nitrite Negative Ur Leukocyte Esterase Negative Assessment and Plan (1) Polymorphic ventricular tachycardia: Status: Acute (2) History of torsades de pointes: Status: Acute Assessment and Plan: 82-year-old male with history of cardiac arrest s/p biventricular ICD placement, paroxysmal atrial fibrillation anticoagulated with Eliquis, coronary artery disease, peripheral vascular disease, GERD, unspecified asthma, and obstructive sleep apnea presented to the ED earlier today from cardiac rehab where his defibrillator went off twice while on a treadmill. Device interrogated by Cardiology with 3 defibrillations noted with torsades rhythm noted at that time. He will be admitted for amiodarone load and further monitoring of torsades de pointes. Torsades de pointes hx cardiac arrest with biventricular ICD inplace Continue max oxide 400mg bid. Keep mag >2.0, K>4.0 keep def[address] in [address],monitor on tele intially started on amiodarone iv , now switched amiodarone 400 mg bid. Syncope-due to above, plan as above. CAD/HLD:asa,bb, statin HFrEF: bb, bumex, valsartan. Paroxysmal atrial fibrillation- rate controlled continue Xarelto for anticoagulation, metoprolol . peripheral artery disease continue cilostazol, aspirin GERD-PPI mild intermittent asthma -no exacerbation, albuterol p.r.n. DVT prophylaxis-Xarelto Full code Patient requires inpatient for continuous cardiac monitoring and mediaction adjustment done,need tele and electrolytes monitreing. Quality Stroke Does the patient have a stroke diagnosis?: No VTE Prior VTE?: No VTE Risk Level:: Medical - moderate - high VTE Device Contraindication: Treatment Not Indicated VTE Drug Contraindication: N/A - Med Ordered
[2023-10-28] MEDS: Potassium Chloride ER 20 MEQ TAB.ER.PRT PO (15:02)
[2023-10-28] MEDS: Rivaroxaban 20 MG TABLET PO (17:20)
[2023-10-28] MEDS: Gabapentin 600 MG TABLET PO (22:07)
[2023-10-28] MEDS: Atorvastatin Calcium 40 MG TABLET PO (22:07)
[2023-10-28] MEDS: Acetaminophen 325 MG TABLET 650 MG PO (22:07)
[2023-10-28] MEDS: Melatonin 3 MG TABLET 6 MG PO (22:07)
[2023-10-28] MEDS: Valsartan 40 MG TABLET 20 MG PO (22:09)
[2023-10-29] VITALS (11 sets, daily range): BP systolic 80–137; BP diastolic 42–67; PULSE 61–83; RESP 18–21; TEMP 36.2–37; O2SAT 94–98
[2023-10-29] MEDS: Omeprazole 20 MG CAPSULE.DR PO (04:55)
[2023-10-29] MEDS: 0.9 % Sodium Chloride 1,000 ML 999 ML IV (04:55)
--- NOTE | 2023-10-29 07:23 | PC.NURSE ---
Addendum entered by Teresa Moses RN 10/29/23 07:38: PER DR Blas will hold all BP meds and diuretics , continue Amiodorone Addendum entered by Teresa Moses RN 10/29/23 07:36: BP 85/50 manually , will hold Metoprolol and Valsartan Original Note: BP 84/50 HR 64, supine , pt denied dizziness , no sob , DR Blas notified
[2023-10-29] MEDS: Amiodarone HCL 200 MG TABLET 400 MG PO ×2 (08:15→23:04)
[2023-10-29] MEDS: Finasteride 5 MG TABLET PO (08:15)
[2023-10-29] MEDS: Magnesium Oxide 400 MG TABLET PO ×2 (08:15→17:07)
[2023-10-29] MEDS: 0.9 % Sodium Chloride Flush 3 ML SYRINGE IVFLUSH ×3 (08:17→23:05)
[2023-10-29] MEDS: 0.9 % Sodium Chloride 250 ML IV (08:45)
--- NOTE | 2023-10-29 10:26 | P.PNCA_ITS ---
Subjective Subjective Date of Service: 10/29/23 Principal diagnosis: VT, ischemic cardiomyopathy Interval history: Patient noted to have low blood pressure today but without any symptoms. Denies lightheadedness. Systolic blood pressure in the 80s. Received IV fluids overnight. Denies any shortness of breath. His valsartan this monitoring metoprolol was withheld. He got amiodarone. No significant ventricular arrhythmias noted. Patient denies any chest pain. Reviewed his cardiac catheterization which shows complete occlusion of all [place] coronary vessels but with patent grafts to the LAD, om as well as the RCA territory although it is possible that he has myocardial ischemia with completely occluded [place] coronaries. Review of Systems Review of Systems Yes all other systems are reviewed and are negative Physical Exam Vital Signs: Last Vital Signs Temp 97.1 F 10/29/23 07:19 Pulse 62 10/29/23 08:34 Resp 18 10/29/23 08:34 BP 85/50 L 10/29/23 08:34 Pulse Ox 95 10/29/23 07:19 O2 Del Method Room Air 10/29/23 07:19 O2 Flow Rate 3 10/28/23 00:00 BMI result Body Mass Index 33.9 Const General: cooperative, comfortable, no acute distress, well developed, alert and awake Nutritional Appearance: well nourished and overweight Orientation/consciousness: patient oriented x3 Limitations: no limitations HEENT Head: Yes normocephalic and Yes atraumatic Neck Neck: Yes trachea midline, Yes supple and Yes no JVD Resp Effort & Inspection: normal respiratory effort Auscultation: clear to auscultation bilaterally Cardio Jugular venous distension: no JVD Palpation: abnormal PMI displaced PMI Rate: regular rate Rhythm: regular rhythm Heart sounds: S1 normal heart sound present, S2 normal heart sound present, no click, no gallops, no murmurs and no rubs GI Auscultation: normal bowel sounds Skin General skin exam: no rashes or lesions noted Neuro General: patient oriented x3 and no focal motor deficits Extrem General: Yes no clubbing, cyanosis or edema Objective Labs and Meds 10/28/23 07:55 10/28/23 07:55 Lab results: Laboratory Results - last 24 hr 10/28/23 07:55 Magnesium 2.0 Progress Note: A&P Assessment and plan (1) Low blood pressure: Status: Acute Assessment and Plan: Low blood pressure without any obvious symptoms raises a question whether he has significant subclavian artery disease and his central aortic pressures are within normal limits although this is going to be difficult to monitor. For now will discontinue valsartan therapy and dropped metoprolol to 12.5 mg b.i.d. and agree with couple of 250 cc normal saline bolus and if blood pressure is above 90 give him metoprolol. Once his blood pressure is about 90 also ambulate him. (2) Polymorphic ventricular tachycardia: Status: Acute Assessment and Plan: Polymorphic ventricular tachycardia most likely ischemic. Continue with metoprolol therapy if possible. Lower the dose to 12.5 mg b.i.d.. Continue amiodarone therapy. If he has not able to do all metoprolol therapy, may consider switching him to Ranexa for ischemia reduction. Will follow with him closely. Continue monitor in the hospital. Time Spent With Patient Time: Total time managing care of this patient today ____ minutes. Progress Note: Quality Stroke Does the patient have a stroke diagnosis?: No Procedures Date of Service Date of Service: 10/29/23
--- NOTE | 2023-10-29 11:13 | MHC.CM.PN ---
EMR REVIEWED, PER CARDIOLOGY PLAN FOR CARDIAC MED CHANGES, ANTIC PT WILL BE CLEARED FOR DC HOME TOMORROW 10/29, CM WILL CONT TO FOLLOW DC NEEDS.
[2023-10-29] MEDS: cilostazoL 50 MG TABLET PO ×2 (13:09→23:04)
--- NOTE | 2023-10-29 14:27 | PC.NURSE ---
Blood pressure improved , 109/55 at rest and 128/62 after pt walked 200 feet
--- NOTE | 2023-10-29 14:50 | HO.PM.IMPN ---
Subjective Subjective Date of Service: 10/29/23 Interval History: Hypotension Review of Systems Denies any new complaint of chest pain shortness for breath or any palpitations Physical Exam Vital Signs: Vital Signs: Last Vital Signs Temp 97.6 F 10/29/23 13:55 Pulse 83 10/29/23 14:26 Resp 20 10/29/23 14:26 BP 128/62 10/29/23 14:26 Pulse Ox 98 10/29/23 13:55 O2 Del Method Room Air 10/29/23 13:55 O2 Flow Rate 3 10/28/23 00:00 BMI result Body Mass Index 33.9 Appearance: Alert.? Oriented X3.? cvs: rrr, [id number]. res: clear to auscultation ,no rhonchii or wheezing abd: no rebound or guarding ,nt, bs present. ext pulses present , no cyanosis . neuro: axo3 , nonfocal. Objective Data Active Medications Acetaminophen (Acetaminophen 325 Mg Tablet) 650 mg PO Q6H PRN PRN Reason: Fever Last Admin: 10/28/23 22:07 Dose: 650 mg Documented By: SERA Acetaminophen (Acetaminophen 325 Mg Tablet) 650 mg PO Q6H PRN PRN Reason: Pain, Mild (Pain Scale 1-3) Acetaminophen (Acetaminophen 325 Mg Tablet) 650 mg PO Q6H PRN PRN Reason: Headache Amiodarone HCl (Amiodarone Hcl 200 Mg Tablet) 400 mg PO BID [facility] Last Admin: 10/29/23 08:15 Dose: 400 mg Documented By: NABEEL Atorvastatin Calcium (Atorvastatin Calcium 40 Mg Tablet) 40 mg PO BEDTIME [facility] Last Admin: 10/28/23 22:07 Dose: 40 mg Documented By: SERA Bumetanide (Bumetanide 1 Mg Tablet) 1 mg PO DAILY PRN; Protocol PRN Reason: Edema Calcium Carbonate (Calcium Carbonate 750 Mg Tab.Chew) 750 mg PO Q6H PRN PRN Reason: Heartburn Cilostazol (Cilostazol 50 Mg Tablet) 50 mg PO BID [facility] Last Admin: 10/29/23 13:09 Dose: 50 mg Documented By: NABEEL Finasteride (Finasteride 5 Mg Tablet) 5 mg PO DAILY@0900 [facility] Last Admin: 10/29/23 08:15 Dose: 5 mg Documented By: NABEEL Gabapentin (Gabapentin 600 Mg Tablet) 600 mg PO BEDTIME [facility] Last Admin: 10/28/23 22:07 Dose: 600 mg Documented By: SERA Magnesium Hydroxide (Milk Of Magnesia 30 Ml Oral.Susp) 30 ml PO DAILY PRN PRN Reason: Constipation Magnesium Oxide (Magnesium Oxide 400 Mg Tablet) 400 mg PO BIDPC [facility] Last Admin: 10/29/23 08:15 Dose: 400 mg Documented By: NABEEL Melatonin (Melatonin 3 Mg Tablet) 6 mg PO BEDTIME PRN PRN Reason: Insomnia Last Admin: 10/28/23 22:07 Dose: 6 mg Documented By: SERA Metoprolol Tartrate (Metoprolol Tartrate 12.5 Mg Halftab) 12.5 mg PO BID [facility]; Protocol Omeprazole (Omeprazole 20 Mg Capsule.Dr) 20 mg PO DAILY@0630 [facility] Last Admin: 10/29/23 04:55 Dose: 20 mg Documented By: SERA Polyethylene Glycol (Polyethylene Glycol 3350 17 Gm Powd.Pack) 17 gm PO DAILY PRN PRN Reason: Constipation Rivaroxaban (Rivaroxaban 20 Mg Tablet) 20 mg PO DAILY@1700 [facility] Last Admin: 10/28/23 17:20 Dose: 20 mg Documented By: NABEEL Sodium Chloride (0.9 % Sodium Chloride Flush 3 Ml Syringe) [facility] Last Admin: 10/29/23 08:17 Dose: 3 ml Documented By: NABEEL Labs 10/28/23 07:55 10/28/23 07:55 Assessment and Plan (1) Low blood pressure: Status: Acute Plan 82-year-old male with history of cardiac arrest s/p biventricular ICD placement, paroxysmal atrial fibrillation anticoagulated with Eliquis, coronary artery disease, peripheral vascular disease, GERD, unspecified asthma, and obstructive sleep apnea presented to the ED earlier today from cardiac rehab where his defibrillator went off twice while on a treadmill. Device interrogated by Cardiology with 3 defibrillations noted with torsades rhythm noted at that time. He will be admitted for amiodarone load and further monitoring of torsades de pointes. Hypotension:possible sec to bp meds hold valsartan ,metoprolol 12.5 mg po bid (use if sbp>90) Torsades de pointes hx cardiac arrest with biventricular ICD inplace Continue max oxide 400mg bid. Keep mag >2.0, K>4.0 keep defib [address] in place,monitor on tele continue amiodarone 400 mg bid. Syncope-due to above, plan as above. CAD/HLD:asa,bb, statin HFrEF: bb, bumex, valsartan. Paroxysmal atrial fibrillation- rate controlled continue Xarelto for anticoagulation, metoprolol . peripheral artery disease continue cilostazol, aspirin GERD-PPI mild intermittent asthma -no exacerbation, albuterol p.r.n. DVT prophylaxis-Xarelto Full code Patient requires inpatient for continuous cardiac monitoring and mediaction adjustment done,need tele and electrolytes monitering, monitering for hypotension. Quality Stroke Does the patient have a stroke diagnosis?: No VTE Prior VTE?: No VTE Risk Level:: Medical - moderate - high VTE Device Contraindication: Treatment Not Indicated VTE Drug Contraindication: N/A - Med Ordered
[2023-10-29] MEDS: Rivaroxaban 20 MG TABLET PO (17:07)
[2023-10-29] MEDS: Gabapentin 600 MG TABLET PO (23:04)
[2023-10-29] MEDS: Atorvastatin Calcium 40 MG TABLET PO (23:04)
[2023-10-29] MEDS: Metoprolol Tartrate 12.5 MG HALFTAB PO (23:05)
[2023-10-30 04:00] VITALS: BP 118/56; PULSE 70; RESP 20; TEMP 36.9; O2SAT 93
[2023-10-30] MEDS: Omeprazole 20 MG CAPSULE.DR PO (05:57)
[2023-10-30 07:25] VITALS: BP 103/50; PULSE 68; RESP 18; TEMP 36.8; O2SAT 95
[2023-10-30] MEDS: Magnesium Oxide 400 MG TABLET PO (08:17)
[2023-10-30] MEDS: Finasteride 5 MG TABLET PO (08:17)
[2023-10-30] MEDS: Metoprolol Tartrate 12.5 MG HALFTAB PO (08:17)
[2023-10-30] MEDS: Amiodarone HCL 200 MG TABLET 400 MG PO (08:17)
[2023-10-30] MEDS: cilostazoL 50 MG TABLET PO (08:17)
[2023-10-30] MEDS: 0.9 % Sodium Chloride Flush 3 ML SYRINGE IVFLUSH (08:18)
--- NOTE | 2023-10-30 11:11 | MHC.CM.PN ---
PT TO BE MEDICALLY CLEARED FOR DC HOME NO SERVICES, CM TO LET DTR QASIM KNOW VIA [employer] ONCE DC PAPERWORK IS READY.
[2023-10-30 11:22] VITALS: BP 102/50; PULSE 60; RESP 18; TEMP 36.3; O2SAT 99
--- NOTE | 2023-10-30 11:45 | P.PNCA_ITS ---
Subjective Subjective Date of Service: 10/30/23 Principal diagnosis: VT, ischemic cardiomyopathy Interval history: Patient's blood pressure is stable at this point in time. No symptoms of lightheadedness. No ventricular arrhythmias. Review of Systems Review of Systems Yes all other systems are reviewed and are negative Physical Exam Vital Signs: Last Vital Signs Temp 97.4 F 10/30/23 11:22 Pulse 60 10/30/23 11:22 Resp 18 10/30/23 11:22 BP 102/50 L 10/30/23 11:22 Pulse Ox 99 10/30/23 11:22 O2 Del Method Room Air 10/30/23 11:22 O2 Flow Rate 3 10/28/23 00:00 BMI result Body Mass Index 33.9 Const General: cooperative, comfortable, no acute distress, well developed, alert and awake Nutritional Appearance: well nourished and overweight Orientation/consciousness: patient oriented x3 Limitations: no limitations HEENT Head: Yes normocephalic and Yes atraumatic Neck Neck: Yes trachea midline, Yes supple and Yes no JVD Resp Effort & Inspection: normal respiratory effort Auscultation: clear to auscultation bilaterally Cardio Jugular venous distension: no JVD Palpation: abnormal PMI displaced PMI Rate: regular rate Rhythm: regular rhythm Heart sounds: S1 normal heart sound present, S2 normal heart sound present, no click, no gallops, no murmurs and no rubs GI Auscultation: normal bowel sounds Skin General skin exam: no rashes or lesions noted Neuro General: patient oriented x3 and no focal motor deficits Extrem General: Yes no clubbing, cyanosis or edema Objective Labs and Meds 10/28/23 07:55 10/28/23 07:55 Progress Note: A&P Assessment and plan (1) Polymorphic ventricular tachycardia: Status: Acute Assessment and Plan: Polymorphic ventricular tachycardia with VF with ICD discharge. Has been suppressed on amiodarone therapy. I think these arrhythmias are ischemic in nature. Agree with metoprolol therapy although at low-dose, see below. May need further treatment of ischemia workup will pursue as outpatient. Avoidance of stimulants was discussed. Agree with p.o. magnesium oxide as well. Patient can be discharged home today. (2) Low blood pressure: Status: Acute Assessment and Plan: Low blood pressure related to multiple neurohormonal modulation can not tolerate this. Have discontinued Entresto for now as metoprolol as more important medication for him at this point time given his ventricular arrhythmias. Continue monitor blood pressure at home and maintain a log. Adequate oral hydration to be maintained. (3) Ischemic cardiomyopathy: Status: Acute Assessment and Plan: Ischemic cardiomyopathy with improved LV ejection fraction with neurohormonal modulation. Will use metoprolol for neurohormonal modulation rather Entresto given his low blood pressure. Avoidance of cardiotoxic agent was discussed. Consider ischemic workup. (4) Atherosclerotic cardiovascular disease: Status: Acute Assessment and Plan: CAD with sleetm[place] vessels totally occluded with patent graft. Continue aggressive medical therapy. Currently on full oral anticoagulation with Xarelto. Metoprolol as above. Continue high-intensity statin therapy. Will follow up in the clinic. Time Spent With Patient Time: Total time managing care of this patient today ____ minutes. Progress Note: Quality Stroke Does the patient have a stroke diagnosis?: No Procedures Date of Service Date of Service: 10/30/23
--- NOTE | 2023-10-30 12:13 | P.DS_ITS ---
DS: Providers Provider Date of Service: 10/30/23 Date of admission: 10/27/23 18:05 Date of discharge: 10/30/23 Primary care physician: Prince Manning MD Consults: 10/27/23 18:05 Consult to Cardiology Routine Consulting Provider: [facility] [place] Cardiovascular Services Reason for consultation: torsades Attending physician on discharge: Nicole Blas Discharging clinician: Nicole Blas DS: Diagnosis Discharge Diagnosis (1) Polymorphic ventricular tachycardia: Status: Acute (2) Low blood pressure: Status: Acute (3) Ischemic cardiomyopathy: Status: Acute (4) Atherosclerotic cardiovascular disease: Status: Acute DS: Summary Hospital Course Hospital Course: 82-year-old male with history of cardiac arrest s/p biventricular ICD placement, paroxysmal atrial fibrillation anticoagulated with Eliquis, coronary artery disease, peripheral vascular disease, GERD, unspecified asthma, and obstructive sleep apnea presented to the ED earlier today from cardiac rehab where his defibrillator went off twice while on a treadmill. The patient denies any syncope at that time, shortness of breath, lightheadedness, palpitations, or chest pain. States he also had an episode where he thought he fell asleep on Friday but woke up and was disoriented, probably syncope. His ICD was interrogated by Cardiology who noted 3 episodes of defibrillation with torsades rhythm noted at that time. While in the ED, vital signs stable. Defibrillation pads were placed. Hematology studies unremarkable except for a stable normocytic anemia with H/H 11.9/36.6%. Renal function electrolyte levels normal, specifically potassium 4.2. Magnesium borderline at 1.8. Has chronically elevated troponin with level today 106.3, BNP 332. He does report that he has been experiencing some increased urinary frequency today with suprapubic pressure. However, urinalysis unremarkable. EKG shows atrial sensed ventricular paced rhythm with occasional PVCs, rate 93 without any acute ischemic changes. ED discuss case with Cardiology recommending amiodarone load and admission to med/tele. Also given 2g IV mag in the ED. Hospital course: Patient was admitted because had 3 defibrillation noted with torsades and syncope likely related to that. Patient was started on amiodarone drip, electrolyte monitored. Patient seems to be improved with amiodarone drip, Seen by Cardiology-patient was switched to p.o. amiodarone and added low-dose metoprolol 12.5 mg b.i.d. since patient had hypotensive episode with valsartan and metoprolol . Patient is asymptomatic, telemetry seems fine. Continue magnesium 400 mg p.o. b.i.d. Patient follow-up with BMP, magnesium levels outpatient, Cardiology outpatient. Follow-up with PCP outpatient. plan: Continue amiodarone 400 mg p.o. b.i.d. until 11/11/23 ,then switch to amiodarone 200 mg po daily. Continue magnesium 400 mg p.o. b.i.d.-10 days supply given. moniter bmp and magnesium levels outpatient. Above management discussed with the patient in detail length he understand and in agreement with the above plan, time spent 40 minutes and 50% time spent on counseling. Time Attestation Total time managing care of this patient today: 40 mintues. Discharge Coordination Time (in mins): 40 min Quality: Safe Use of Opioids Does Pt have an Active Cancer Diagnosis on the Problem List?: No Quality: Stroke Does the patient have a stroke diagnosis?: No Physical Exam Vital Signs: Vital Signs: Last Vital Signs Temp 97.4 F 10/30/23 11:22 Pulse 60 10/30/23 11:22 Resp 18 10/30/23 11:22 BP 102/50 L 10/30/23 11:22 Pulse Ox 99 10/30/23 11:22 O2 Del Method Room Air 10/30/23 11:22 O2 Flow Rate 3 10/28/23 00:00 BMI result Body Mass Index 33.9 Appearance: Alert.? Oriented X3.? cvs: rrr, [id number] , no murmur res: clear to auscultation ,no rhonchii or wheezing abd: no rebound or guarding ,nt, bs present. ext pulses present , no cyanosis neuro: axo3 , nonfocal. Discharge Plan Discharge Anticipated Discharge Date/Time: 10/30/23 08:27 Patient Disposition: Home, Self-Care Discharge Diagnosis: Torsades de pointes,syncope,hypotension Referrals: Prince Manning MD [Primary Care Provider] - 1 Week Discharge Medications: New magnesium oxide 400 mg (241.3 mg magnesium) Tablet 400 mg PO BIDPC Qty: 20 0RF metoprolol tartrate 25 mg tablet 12.5 mg PO BID Qty: 180 0RF amiodarone 200 mg Tablet 400 mg PO BID Qty: 90 0RF Rx Instructions: Amiodarone 400 mg p.o. b.i.d. until11/11/23 then switch( on 11/12/23 )to amiodarone p.o. 200 mg daily Continued allopurinol 100 mg tablet 100 mg PO DAILY@0900 Xarelto 20 mg tablet 20 mg PO QPM Rx Instructions: TAKE WITH SUPPER atorvastatin 40 mg tablet 40 mg PO BEDTIME pantoprazole 40 mg tablet,delayed release (DR/EC) 40 mg PO DAILY@0630 nitroglycerin 0.4 mg tablet, sublingual 0.4 mg sublingual Q5M PRN (Reason: Chest Pain) Rx Instructions: do not exceed 3 doses per episode finasteride 5 mg tablet 5 mg PO DAILY@0900 cilostazol 50 mg tablet 50 mg PO BID aspirin [Adult Aspirin Regimen] 81 mg tablet,delayed release (DR/EC) 81 mg PO DAILY@0900 gabapentin 600 mg tablet 600 mg PO BEDTIME 90 Days Qty: 90 1RF bumetanide 1 mg tablet 1 mg PO DAILY PRN (Reason: Edema) Discontinued Entresto 24-26 mg tablet 0.5 tab PO BID 90 Days Qty: 90 3RF Discharge Orders: Discharge Order (Routine); Ordered 10/30/23 Ordered By: Nicole Blas Diet: Advance to usual diet Activity on Discharge: As tolerated Stand Alone Forms: Patient Portal Discharge page Print Language: German Other Ambulatory Orders: Basic Metabolic Panel (Routine) Timeframe: 1 Week Facility: [facility] - Location: Laboratory Ordered By: Nicole Blsa Magnesium (Routine) Timeframe: 1 Week Facility: [facility] - Location: Laboratory Ordered By: Nicole Blas Care Plan Goals: Patient was admitted because had 3 defibrillation noted with torsades and syncope likely related to that. Patient was started on amiodarone drip, electrolyte monitored. Seen by Cardiology-patient was switched to p.o. amiodarone and added low-dose metoprolol 12.5 mg b.i.d. since patient had hypotensive episode with valsartan and metoprolol . Continue magnesium 400 mg p.o. b.i.d. Patient follow-up with BMP, magnesium levels outpatient, Cardiology outpatient. Follow-up with PCP outpatient. Health Concerns: As above. Plan of Treatment: As above. Assessment: As above.
== END 2023-10-30 13:00 | disposition home or self-care (01) | DRG 309 ==
LOC: HO.ED 17:37 → HO.EDOVER 18:30 → HO.IMC 19:19
PROVIDERS: Physician Assistant; Admitting Provider Physician Assistant; Emergency Provider Student in an Organized Health Care Education/Training Program; PCP Internal Medicine Sports Medicine; Visit Provider Internal Medicine
DX: I47.21 Torsades de pointes (principal); I50.22 Chronic systolic (congestive) heart failure; I25.10 Atherosclerotic heart disease of native coronary artery without angina pectoris; E78.5 Hyperlipidemia, unspecified; I48.0 Paroxysmal atrial fibrillation; I73.9 Peripheral vascular disease, unspecified; I95.9 Hypotension, unspecified; I25.5 Ischemic cardiomyopathy; E83.42 Hypomagnesemia; J45.20 Mild intermittent asthma, uncomplicated; D64.9 Anemia, unspecified; Z95.1 Presence of aortocoronary bypass graft; Z95.810 Presence of automatic (implantable) cardiac defibrillator; Z86.74 Personal history of sudden cardiac arrest; Z87.891 Personal history of nicotine dependence; Z79.01 Long term (current) use of anticoagulants; Z79.82 Long term (current) use of aspirin; Z79.899 Other long term (current) drug therapy
CPT/HCPCS: 36415; 80048; 80076; 81003; 83735; 83880; 84484; 85025; 93005; 97161; 99285; J0282; J0283; J3475

== ENCOUNTER → 2023-10-27 18:05 | Outpatient (BNV) | payer MEDICARE, SELFPAY | PROVIDERS: Admitting Provider Physician Assistant; Emergency Provider Student in an Organized Health Care Education/Training Program; PCP Internal Medicine Sports Medicine; Visit Provider Physician Assistant | DX: I47.29 Other ventricular tachycardia (principal); I95.9 Hypotension, unspecified; I25.5 Ischemic cardiomyopathy; I25.10 Atherosclerotic heart disease of native coronary artery without angina pectoris | CPT/HCPCS: 99223; 99232; 99239; 99499 ==

== ENCOUNTER → 2023-10-27 18:05 | Outpatient (BNV) | payer MEDICARE, SELFPAY | PROVIDERS: Admitting Provider Physician Assistant; Emergency Provider Student in an Organized Health Care Education/Training Program; PCP Internal Medicine Sports Medicine; Visit Provider Internal Medicine Cardiovascular Disease | DX: I47.29 Other ventricular tachycardia (principal); I95.9 Hypotension, unspecified; I25.5 Ischemic cardiomyopathy; I25.10 Atherosclerotic heart disease of native coronary artery without angina pectoris | CPT/HCPCS: 99222; 99233 ==

== ENCOUNTER 2023-11-04 09:53 | Outpatient (AMB) | payer MEDICARE, SELFPAY ==
[2023-11-04 09:57] VITALS: BP 120/52; PULSE 68; BMI 32.5
--- NOTE | 2023-11-04 09:57 | MHC.OFFVIS ---
Vital Signs 11/04/23 09:57 Height 5 ft 4 in Weight 189 lb 9.561 oz BMI 32.5 BP 120/52 L Blood Pressure Location Lt brachial Position Sitting Pulse 68 Intake Visit Reasons: f/up per HS Senior Director Marketing Required: No Accompanied by: Daughter Allergies metoprolol Adverse Reaction (Uncoded 10/27/23 16:43) hypotensive narcotics Adverse Reaction (Uncoded 10/27/23 16:43) Nausea and Vomiting, hypotensive Medication List - Last Reconciled 11/04/23 by Evangelista Asher MD allopurinol 100 mg PO DAILY@0900 amiodarone 400 mg (2 x 200 mg) PO BID aspirin (Adult Aspirin Regimen) 81 mg PO DAILY@0900 atorvastatin 40 mg PO BEDTIME bumetanide 1 mg PO DAILY PRN cilostazol 50 mg PO BID finasteride 5 mg PO DAILY@0900 gabapentin 600 mg PO BEDTIME 90 days magnesium oxide 400 mg PO BID metoprolol tartrate 12.5 mg (1/2 x 25 mg) PO BID nitroglycerin 0.4 mg sublingual Q5M PRN pantoprazole 40 mg PO DAILY@0630 rivaroxaban (Xarelto) 20 mg PO QPM HPI Comments Details: Sherman returns for follow-up. Complicated history. Last Friday, he had an ICD shock. After that, he still went to cardiac rehab on Friday where he was noted to have polymorphic VT episodes. He was urgently evaluated in the clinic and sent to the ER for admission. He was started on amiodarone. After that, no further episodes of ventricular arrhythmias. Due to low blood pressure problems, he is office Entresto completely. He is only on a small dose of metoprolol which should be helping the ventricular arrhythmias as well. Otherwise, no clear-cut angina. He states he gets short of breath at times and after he takes diuretics he feels better. However, he has not taking it regularly. Otherwise, in May 2023, he traveled to [place] for a visit and in that setting, he had a cardiac arrest. There was bystander CPR and AED shocks and then return of spontaneous circulation. Then taken to hospital and appropriately managed. In the hospital, rhythm was apparently ventricular fibrillation. Then he underwent left heart catheterization, but that showed no significant findings and he had patent grafts. He was also in congestive heart failure and was on diuretic drips and dobutamine drips as well. Eventually, he underwent a BiV ICD and then successfully discharged. After the time of discharge few days ago, he states he is okay. He feels short of breath one day but he took diuretic and felt much better. Prefers not to take it daily. [facility] Medical History Biventricular ICD (implantable cardioverter-defibrillator) in place Syncope RBBB PVD (peripheral vascular disease) Hx of thyroid nodule GERD (gastroesophageal reflux disease) CAD (coronary artery disease) BPH (benign prostatic hyperplasia) Asthma Atrial fibrillation Surgical History Hx of CABG Hx of cardiac cath H/O right knee surgery H/O heart surgery Family History Mother Breast cancer Father Heart attack Brother Stomach cancer Brother Heart disease Social History Household Members: None Housing: House Do you presently have visiting nurse or other home services: No Alcohol intake: former Comment: pt refusing red socks, alarms, and camera Patient Tobacco Use Status: Former Tobacco user Quit Date: Years Smoked: 25 +/- service: No Review of Systems Const Denies chills, Denies fatigue, Denies fever(s), Denies frequent falls, Denies weakness, Denies weight gain and Denies weight loss ENT Denies dizziness Card Denies chest pain, Denies leg edema, Denies lightheadedness, Denies palpitations, Denies dyspnea and Denies dyspnea on exertion Resp Denies cough, Denies dyspnea and Denies dyspnea on exertion GI Denies hematochezia Musc Denies abnormal gait, Denies muscle weakness, Denies numbness, Denies radiating pain into limb and Denies tingling Neuro Denies abnormal gait, Denies dizziness, Denies frequent falls, Denies numbness, Denies tingling and Denies weakness Endo Denies fatigue and Denies palpitations Physical Exam Vital Signs: Last Vital Signs Pulse 68 11/04/23 09:57 BP 120/52 L 11/04/23 09:57 BMI result Body Mass Index 32.5 Const General: comfortable and no acute distress Orientation/consciousness: patient oriented x3 HEENT Other: Unremarkable Head: Yes normal to inspection Neck Neck: Yes normal visual inspection Chest Chest palpation & inspection: normal inspection of the chest Resp Auscultation: clear to auscultation bilaterally Cardio Palpation: normal PMI Heart sounds: S1 normal heart sound present, S2 normal heart sound present, no gallops, no murmurs and no rubs GI Palpation (GI): Soft to palpation Back/Spine/Pelvis Other: unremarkable Skin General skin exam: no rashes or lesions noted Neuro General: patient oriented x3 Extrem General: Yes normal to inspection Psych Mental Status: mental status grossly normal Office Procedures EKG Details: EKG with atrial sensed ventricular paced rhythm at 68/Min. [id number]-[id number], Complete Assessment & Plan Assessment & Plan (1) Atherosclerotic cardiovascular disease: Code(s): I25.10 - Atherosclerotic heart disease of ewiiaapaayp coronary artery without angina pectoris Category: Medical Plan: In the cardiac catheterization in 05/2023-heavily calcified and occluded left main, LAD, circumflex and right coronary arteries. Patent SHANE to LAD graft, SVG to OM branch of circumflex, SVG to PDA branch of RCA. He does not have any overt angina. The ventricular arrhythmias could be ischemic but as the grafts were wide open, do not see any obvious targets. Continue aspirin and statins. May add Ranexa. (2) Chronic combined systolic and diastolic CHF (congestive heart failure): Code(s): I50.42 - Chronic combined systolic (congestive) and diastolic (congestive) heart failure Category: Medical Plan: Recommend that he takes the diuretics rather regularly as he feels better those days. In the most recent echocardiogram, LVEF is 46%. Per records in [place], LVEF is around 30% apparently. Otherwise, guideline based medical therapy is very limited because of hypotension issues. He is only on a small dose of beta-blockers. That should also help with ventricular arrhythmias. Otherwise, Entresto stopped because of hypotension. He was also on Jardiance in the past but not in his list anymore. (3) Ventricular tachycardia: Code(s): I47.20 - Ventricular tachycardia, unspecified Category: Medical Plan: ICD shock recently; polymorphic VT while in cardiac rehab. Now on amiodarone. Continue. (4) Biventricular ICD (implantable cardioverter-defibrillator) in place: Code(s): Z95.810 - Presence of automatic (implantable) cardiac defibrillator Category: Medical Plan: Normally functioning and being monitored remotely. (5) Atrial fibrillation: Code(s): I48.91 - Unspecified atrial fibrillation Category: Medical Plan: Continue amiodarone and anticoagulation. Plan Discussed with daughter who came for appointment. Total time spent including review of recent hospitalization data, counseling, documentation, coordination of care-48 minutes. Medications: New ranolazine ER 500 mg PO BID 180 tabs 3RF 90 days bumetanide 1 mg PO DAILY 90 tabs 3RF Edema Coding Level of Care Code Est Pt Level 5 (23514) Diagnoses Atherosclerotic cardiovascular disease I25.10 Chronic combined systolic and diastolic CHF (congestive heart failure) I50.42 Ventricular tachycardia I47.20 Biventricular ICD (implantable cardioverter-defibrillator) in place Z95.810 Atrial fibrillation I48.91 CPT Codes EKG - CPT: 62765-[id number], Complete ([id number])
== END 2023-11-04 10:51 | disposition home or self-care (01) ==
PROVIDERS: PCP Internal Medicine Sports Medicine; Visit Provider Internal Medicine
DX: I25.10 Atherosclerotic heart disease of native coronary artery without angina pectoris (principal); I50.42 Chronic combined systolic (congestive) and diastolic (congestive) heart failure; I47.20 Ventricular tachycardia, unspecified; Z95.810 Presence of automatic (implantable) cardiac defibrillator; I48.91 Unspecified atrial fibrillation
CPT/HCPCS: 93010; 99215

== ENCOUNTER → 2023-11-04 09:53 | Outpatient (BNVA) | payer MEDICARE, SELFPAY | PROVIDERS: PCP Internal Medicine Sports Medicine; Visit Provider Internal Medicine ==

== ENCOUNTER 2023-11-04 10:39 | Outpatient (REF) | payer MEDICARE, SELFPAY ==
[2023-11-04 12:34] LABS: Anion Gap 15 (12-20); Blood Urea Nitrogen 29 mg/dL (9-16); Carbon Dioxide 24 mmol/L (22-29); Chloride 105 mmol/L (96-108); Estimated Glomerular Filt Rate 60; Glucose Random 100 mg/dL (60-115); Magnesium 2.1 mg/dL (1.6-2.6); Potassium 4.3 mmol/L (3.3-5.1); Sodium 140 mmol/L (135-145)
== END 2023-11-04 10:40 | disposition home or self-care (01) ==
LOC: HO.LAB 10:39
PROVIDERS: Absent Provider Internal Medicine; PCP Internal Medicine Sports Medicine; Visit Provider Internal Medicine
DX: I50.42 Chronic combined systolic (congestive) and diastolic (congestive) heart failure (principal); I25.10 Atherosclerotic heart disease of native coronary artery without angina pectoris; I47.20 Ventricular tachycardia, unspecified; I48.91 Unspecified atrial fibrillation
CPT/HCPCS: 36415; 80048; 83735; 93005; 99212

== ENCOUNTER → 2023-11-11 23:59 | Outpatient (BNV) | payer MEDICARE, SELFPAY ==
--- NOTE | 2023-11-16 14:43 | MHC.OFFVIS ---
Intake Visit Reasons: Remote HF monitoring- [employer] Allergies metoprolol Adverse Reaction (Uncoded 10/27/23 16:43) hypotensive narcotics Adverse Reaction (Uncoded 10/27/23 16:43) Nausea and Vomiting, hypotensive PFSH Medical History Biventricular ICD (implantable cardioverter-defibrillator) in place Syncope RBBB PVD (peripheral vascular disease) Hx of thyroid nodule GERD (gastroesophageal reflux disease) CAD (coronary artery disease) BPH (benign prostatic hyperplasia) Asthma Atrial fibrillation Surgical History Hx of CABG Hx of cardiac cath H/O right knee surgery H/O heart surgery Family History Mother Breast cancer Father Heart attack Brother Stomach cancer Brother Heart disease Social History Household Members: None Housing: House Do you presently have visiting nurse or other home services: No Alcohol intake: former Comment: pt refusing red socks, alarms, and camera Patient Tobacco Use Status: Former Tobacco user Years Smoked: 25 +/- service: No Office Procedures Cardiac Device Check Cardiac Device Check Details: Date of service- 11/11/2023; based on impedance data and physiological variables, there is no evidence of worsening congestive heart failure. [id number] Cardiac Device Interrogation, cardio physiologic monitor Procedure code (CPT) selection complete Assessment & Plan Assessment & Plan (1) Ischemic cardiomyopathy: Code(s): I25.5 - Ischemic cardiomyopathy Category: Medical Plan x Coding Level of Care Code Procedure Only Diagnoses Ischemic cardiomyopathy I25.5 CPT Codes Cardiac Device Check - Cardiac Device 15: [id number] Cardiac Device Interrogation, cardio physiologic monitor ([id number])
== END ==
PROVIDERS: PCP Internal Medicine Sports Medicine; Visit Provider Internal Medicine
DX: I25.5 Ischemic cardiomyopathy (principal); Z95.810 Presence of automatic (implantable) cardiac defibrillator
CPT/HCPCS: 93297

== ENCOUNTER → 2023-11-11 23:59 | Outpatient (BNV) | payer MEDICARE, SELFPAY ==
--- NOTE | 2023-11-16 14:45 | MHC.OFFVIS ---
Intake Visit Reasons: remote ICD check- [employer]tr[employer] Allergies metoprolol Adverse Reaction (Uncoded 10/27/23 16:43) hypotensive narcotics Adverse Reaction (Uncoded 10/27/23 16:43) Nausea and Vomiting, hypotensive PFSH Medical History Biventricular ICD (implantable cardioverter-defibrillator) in place Syncope RBBB PVD (peripheral vascular disease) Hx of thyroid nodule GERD (gastroesophageal reflux disease) CAD (coronary artery disease) BPH (benign prostatic hyperplasia) Asthma Atrial fibrillation Surgical History Hx of CABG Hx of cardiac cath H/O right knee surgery H/O heart surgery Family History Mother Breast cancer Father Heart attack Brother Stomach cancer Brother Heart disease Social History Household Members: None Housing: House Do you presently have visiting nurse or other home services: No Alcohol intake: former Comment: pt refusing red socks, alarms, and camera Patient Tobacco Use Status: Former Tobacco user Years Smoked: 25 +/- service: No Office Procedures Cardiac Device Check Cardiac Device Check Details: Date of service 11/11/2023; Battery life >8 years; normal lead parameters; no treated VT/VF; normal ICD function. [id number] Cardiac Interrogation, implant defibrillator w/interim Procedure code (CPT) selection complete Assessment & Plan Assessment & Plan (1) Ischemic cardiomyopathy: Code(s): I25.5 - Ischemic cardiomyopathy Category: Medical Plan x Coding Level of Care Code Procedure Only Diagnoses Ischemic cardiomyopathy I25.5 CPT Codes Cardiac Device Check - Cardiac Device 13: [id number] Cardiac Interrogation, implant defibrillator w/interim ([id number])
== END ==
PROVIDERS: PCP Internal Medicine Sports Medicine; Visit Provider Internal Medicine
DX: I25.5 Ischemic cardiomyopathy (principal); Z95.810 Presence of automatic (implantable) cardiac defibrillator
CPT/HCPCS: 93295

== ENCOUNTER 2023-12-10 00:43 | Emergency (ER) | payer MEDICARE, SELFPAY ==
[2023-12-10 00:46] VITALS: BP 147/68; PULSE 81; RESP 18; TEMP 36.3; O2SAT 95; BMI 33.1
[2023-12-10 01:03] LABS: Basophils Percent Auto 0.3 % (0-2); Eosinophils Absolute Auto 0.2 X10*3/uL (0.0-0.4); Eosinophils Percent Auto 1.7 % (0-4); Hematocrit 32.9 % (42.0-52.0); Hemoglobin 11.1 g/dl (14.0-18.0); Imm Gran Abs Auto 0.04 X10*3/uL (0.00-0.03); Imm Gran Pct Auto 0.4 % (0.0-0.4); Lymphocytes Absolute Auto 1.5 X10*3/uL (1.2-4.9); Lymphocytes Percent Auto 15.7 % (20-40); MANUAL DIFF FLAG NO; Mean Corpuscular HGB Conc 33.7 g/dl (31.0-36.0); Mean Corpuscular Hemoglobin 27.8 pg (27.0-33.0); Mean Corpuscular Volume 82.5 fL (80.0-98.0); Mean Platelet Volume 10.2 fL (9.4-12.4); Monocytes Absolute Auto 0.9 X10*3/uL (0.1-1.2); Monocytes Percent Auto 8.9 % (2-11); Platelet Count 258 X10*3/uL (160-400); Red Blood Count 3.99 X10*6/uL (4.60-5.80); White Blood Count 9.6 X10*3/uL (4.8-10.8)
[2023-12-10 01:08] LABS: INTERNATIONAL NORM RATIO 3.4 (0.9-1.1); Prothrombin Time 41.4 SEC (11.1-13.3)
[2023-12-10 01:19] LABS: Alanine Aminotransferase 20 U/L (0-40); Alkaline Phosphatase 142 U/L (39-117); Anion Gap 17 (12-20); Aspartate Amino Transferase 30 U/L (5-37); Bilirubin Total 1.2 mg/dL (0.0-1.0); Blood Urea Nitrogen 32 mg/dL (9-16); Calcium 8.9 mg/dL (8.4-10.2); Carbon Dioxide 22 mmol/L (22-29); Chloride 102 mmol/L (96-108); Creatinine Clr Calc Pharmacy 35.8; Estimated Glomerular Filt Rate 41; Glucose Random 130 mg/dL (60-115); Potassium 4.1 mmol/L (3.3-5.1); Sodium 137 mmol/L (135-145); Total Protein 6.4 g/dL (6.5-8.0)
[2023-12-10 02:00] VITALS: BP 106/50; PULSE 60; RESP 16; TEMP 36.7; O2SAT 94
--- NOTE | 2023-12-10 02:39 | ED.GENADULT ---
HPI - General Adult General Chief complaint: General Medical Stated complaint: head inj? Time Seen by Provider: 12/10/23 02:22 Source: patient and family (Daughter) Mode of arrival: ambulatory Limitations: no limitations History of Present Illness ED Provider: DR. 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 Patient was told the wound was not closed and he needs to go back to the client service executive office today for wound closure. Related Data Home Medications ?Medication ?Instructions ?Recorded ?Confirmed aspirin 81 mg tablet,delayed 81 mg PO DAILY@0900 06/18/21 11/04/23 release (Adult Aspirin Regimen) cilostazol 50 mg tablet 50 mg PO BID 06/18/21 11/04/23 finasteride 5 mg tablet 5 mg PO DAILY@0900 06/18/21 11/04/23 nitroglycerin 0.4 mg sublingual 0.4 mg sublingual Q5M PRN Chest 06/18/21 11/04/23 tablet Pain pantoprazole 40 mg tablet,delayed 40 mg PO DAILY@0630 06/18/21 11/04/23 release allopurinol 100 mg tablet 100 mg PO DAILY@0900 10/27/23 11/04/23 atorvastatin 40 mg tablet 40 mg PO BEDTIME 10/27/23 11/04/23 rivaroxaban 20 mg tablet (Xarelto) 20 mg PO QPM 10/27/23 11/04/23 Previous Rx's ?Medication ?Instructions ?Recorded gabapentin 600 mg tablet 600 mg PO BEDTIME 90 days #90 tabs 10/01/23 bumetanide 1 mg tablet 1 mg PO DAILY Edema #90 tabs 11/04/23 metoprolol tartrate 25 mg tablet 12.5 mg (1/2 x 25 mg) PO BID 90 11/04/23 days #90 tabs ranolazine 500 mg tablet,extended 500 mg PO BID 90 days #180 tabs 11/04/23 release,12 hr amiodarone 200 mg tablet 200 mg PO BID #90 tabs 11/26/23 magnesium oxide 400 mg PO BID 90 days #180 tabs 12/08/23 Allergies Allergy/AdvReac Type Severity Reaction Status Date / Time metoprolol AdvReac hypotensive Uncoded 12/10/23 00:49 narcotics AdvReac Nausea and Uncoded 12/10/23 00:49 Vomiting, hypotensive Review of Systems Review of Systems: All other systems are reviewed and are negative Constitutional: Reports as per HPI and Reports no additional constitutional complaints Eyes: Reports as per HPI and Reports no additional eye complaints Reports system reviewed and no additional complaints, except as documented Cardiovascular: Reports as per HPI and Reports no additional cardiovascular complaints Respiratory: Reports as per HPI and Reports no additional respiratory complaints Gastrointestinal: Reports as per HPI and Reports no additional gastrointestinal complaints Genitourinary: Reports no additional female genitourinary complaints Musculoskeletal: Reports no additional musculoskeletal complaints Skin/Breast: Reports system reviewed and no additional complaints, except as docu Psychiatric: Reports no additional psychiatric complaints Endocrine: Reports no additional endocrine complaints Hematologic/Lymphatic: Reports no additional hematologic/lymphatic complaints Allergic/Immunologic: Reports no additional allergic/immunologic complaints Reports system reviewed and no additional complaints, except as documented and Reports Abnormal speech present [facility] Past Medical History Medical History Biventricular ICD (implantable cardioverter-defibrillator) in place Syncope RBBB PVD (peripheral vascular disease) Hx of thyroid nodule GERD (gastroesophageal reflux disease) CAD (coronary artery disease) BPH (benign prostatic hyperplasia) Asthma Atrial fibrillation Surgical History Hx of CABG Hx of cardiac cath H/O right knee surgery H/O heart surgery Family History Family History Mother Breast cancer Father Heart attack Brother Stomach cancer Brother Heart disease Social History Social History Household Members: None Housing: House Do you presently have visiting nurse or other home services: No Alcohol intake: former Comment: pt refusing red socks, alarms, and camera Patient Tobacco Use Status: Former Tobacco user Years Smoked: 25 +/- Smoked in Last 30 Days: No Use of substances other than those prescribed or required for medical reasons: No Advance Directives: Yes Advance Directives on File: Yes Advance Directives Date on File: 10/31/23 Do you have a plan to hurt others: No Plan service: No Physical Exam ED Vital Signs: Vital Signs - 24 hr 12/10/23 00:46 12/10/23 02:00 12/10/23 04:00 Temperature 97.3 F 98.1 F 98.3 F Pulse Rate 81 60 59 Respiratory Rate 18 16 16 Blood Pressure 147/68 H 106/50 L 130/64 Pulse Oximetry 95 94 95 Oxygen Delivery Method Room Air Room Air Room Air 12/10/23 06:00 Temperature 97.8 F Pulse Rate 60 Respiratory Rate 16 Blood Pressure 137/67 Pulse Oximetry 92 Oxygen Delivery Method Room Air BMI result Body Mass Index 33.1 Vital signs have been reviewed and appear to be correct. Blood pressure elevated. Heart rate normal. Respiratory rate normal. Temperature normal. Oxygen saturation normal. Appearance: Alert. Oriented X3. No acute distress. Head: A dressing soaked with blood in the vertex area of the scalp, no obvious source of bleeding, pressure dressing was applied. Eyes: PERRLA. EOMI. Conjunctiva and sclera normal. Eyelids normal. ENT: TM's Normal. Pharynx normal. Uvula midline. Moist mucous membranes. No trismus noted. No drooling noted. No muffled voice noted. Neck: Normal inspection. Neck supple. FROM. No adenopathy. Thyroid Normal. No meningeal signs. No neck mass noted. CVS: Normal heart rate and rhythm. Heart sound normal. No murmurs noted. Pulses normal throughout. Respiratory: No respiratory distress. Painless inspiration. Breath sounds normal. No wheezes/rales/rhonchi noted. Chest nontender. No accessory muscle usage noted or decreased air movement noted. Abdomen: Soft and nontender. Bowel sounds normal in all 4 quadrants. No distention noted. No organomegaly noted. No visible injury noted. Back: No CVA tenderness. Full range of motion noted. Skin: Skin warm and dry. Normal skin color. Normal skin turgor. No rashes/lesions/lacerations noted. Extremities: No lower extremity edema. Extremities exhibit normal range of motion. Extremities nontender. Neuro: Oriented X 3. Cranial nerve exam: II-XII are grossly intact No motor deficit. No sensory deficit. Reflexes normal. Course Reevaluation(s) Reevaluation #1: Chu bandage wrap was applied, no obvious active bleeding at this point, will observe the patient in the ED for bleed. Time: 02:44 Reevaluation #2: Patient started to ooze blood under the dressing dressing was removed and new pressure dressing with Chu bandage was applied will continue monitoring. Time: 07:19 Reevaluation #3: The dressing continue to be dry and clean with no active bleeding, patient feel nauseous will prescribe Zofran sublingual, daughter who also is a nurse will take the patient home. Labs reveals INR elevation, stable anemia. Will continue to monitor, signed out to Dr. Sofia. Time: 07:19 Medications Administered Discontinued Medications Generic Name Dose Route Start Last Admin Trade Name Freq PRN Reason Stop Dose Admin Ondansetron HCl 4 mg 12/10/23 05:49 12/10/23 06:07 Ondansetron Odt 4 Mg Tab.Rapdis TRANSLINGU 12/10/23 05:50 4 mg ONCE ONE Administration Medical Decision Making Differential Diagnosis Differential Diagnoses: The differential diagnosis associated with the presentation includes (Coagulopathy, severe anemia, active bleeding.) Admission/Observation Consideration of admission/observation: Escalation of care including admission/observation considered Lab Data MDM Lab Attestation statement: I reviewed the patient's lab results. 12/10/23 00:58 12/10/23 00:58 Labs: Lab Results 12/10/23 Range/Units 00:58 WBC 9.6 (4.8-10.8) X10*3/uL RBC 3.99 L (4.60-5.80) X10*6/uL Hgb 11.1 L (14.0-18.0) g/dl Hct 32.9 L (42.0-52.0) % MCV 82.5 (80.0-98.0) fL MCH 27.8 (27.0-33.0) pg MCHC 33.7 (31.0-36.0) g/dl RDW 18.0 H (11.0-16.0) % Plt Count 258 (160-400) X10*3/uL MPV 10.2 (9.4-12.4) fL Immature Gran % (Auto) 0.4 (0.0-0.4) % Neut % (Auto) 73.0 (45-73) % Lymph % (Auto) 15.7 L (20-40) % [place] % (Auto) 8.9 (2-11) % Eos % (Auto) 1.7 (0-4) % Baso % (Auto) 0.3 (0-2) % Lymph # (Auto) 1.5 (1.2-4.9) X10*3/uL [place] # (Auto) 0.9 (0.1-1.2) X10*3/uL Eos # (Auto) 0.2 (0.0-0.4) X10*3/uL Baso # (Auto) 0.0 (0.0-0.2) X10*3/uL Abs Immat Gran (auto) 0.04 H (0.00-0.03) X10*3/uL Absolute Neuts (auto) 7.0 (2.0-8.3) x10*3/uL Absolute Nucleated RBC 0.000 (0.0-0.012) X10*3/uL Nucleated RBC % (auto) 0.0 (0.0-0.2) /100WBC PT 41.4 H D (11.1-13.3) SEC INR 3.4 H D (0.9-1.1) Sodium 137 (135-145) mmol/L Potassium 4.1 (3.3-5.1) mmol/L Chloride 102 (96-108) mmol/L Carbon Dioxide 22 (22-29) mmol/L Anion Gap 17 (12-20) BUN 32 H (9-16) mg/dL Creatinine 1.61 H (0.5-1.4) mg/dL Estim Creat Clear Calc 35.8 Estimated GFR 41 Random Glucose 130 H (60-115) mg/dL Calcium 8.9 (8.4-10.2) mg/dL Total Bilirubin 1.2 H (0.0-1.0) mg/dL AST 30 (5-37) U/L ALT 20 (0-40) U/L Alkaline Phosphatase 142 H (39-117) U/L Total Protein 6.4 L (6.5-8.0) g/dL Albumin 4.0 (3.5-5.0) g/dL Discharge Plan Discharge Clinical Impression: Hemorrhage from wound Patient Disposition: Home, Self-Care Instructions: Bleeding Disorders (ED) Prescriptions: No Action metoprolol tartrate 25 mg tablet 12.5 mg PO BID 90 Days Qty: 90 1RF amiodarone 200 mg tablet 200 mg PO BID Qty: 90 2RF magnesium oxide 400 mg magnesium tablet 400 mg PO BID 90 Days Qty: 180 1RF allopurinol 100 mg tablet 100 mg PO DAILY@0900 Xarelto 20 mg tablet 20 mg PO QPM Rx Instructions: TAKE WITH SUPPER atorvastatin 40 mg tablet 40 mg PO BEDTIME pantoprazole 40 mg tablet,delayed release (DR/EC) 40 mg PO DAILY@0630 nitroglycerin 0.4 mg tablet, sublingual 0.4 mg sublingual Q5M PRN (Reason: Chest Pain) Rx Instructions: do not exceed 3 doses per episode finasteride 5 mg tablet 5 mg PO DAILY@0900 cilostazol 50 mg tablet 50 mg PO BID aspirin [Adult Aspirin Regimen] 81 mg tablet,delayed release (DR/EC) 81 mg PO DAILY@0900 gabapentin 600 mg tablet 600 mg PO BEDTIME 90 Days Qty: 90 1RF ranolazine 500 mg tablet extended release 12 hr 500 mg PO BID 90 Days Qty: 180 3RF bumetanide 1 mg tablet 1 mg PO DAILY Qty: 90 3RF Print Language: Khmer
[2023-12-10 04:00] VITALS: BP 130/64; PULSE 59; RESP 16; TEMP 36.8; O2SAT 95
--- NOTE | 2023-12-10 04:00 | PC.NURSE ---
around 4AM it is noted that patient is bleeding through pressure dressing. MD aware. pressure dressing applied.
[2023-12-10 06:00] VITALS: BP 137/67; PULSE 60; RESP 16; TEMP 36.6; O2SAT 92
[2023-12-10] MEDS: Ondansetron ODT 4 MG TAB.RAPDIS TRANSLINGU (06:07)
--- NOTE | 2023-12-10 06:13 | PC.NURSE ---
pt continues to bleed through pressure dressing. aware.
[2023-12-10 08:09] VITALS: BP 117/60; PULSE 61; RESP 16; O2SAT 92
[2023-12-10 08:49] LABS: MANUAL DIFF FLAG NO
[2023-12-10 08:50] LABS: Basophils Percent Auto 0.5 % (0-2); Eosinophils Absolute Auto 0.1 X10*3/uL (0.0-0.4); Eosinophils Percent Auto 1.3 % (0-4); Hematocrit 28.9 % (42.0-52.0); Hemoglobin 9.6 g/dl (14.0-18.0); Imm Gran Abs Auto 0.05 X10*3/uL (0.00-0.03); Imm Gran Pct Auto 0.6 % (0.0-0.4); Lymphocytes Absolute Auto 0.9 X10*3/uL (1.2-4.9); Lymphocytes Percent Auto 10.9 % (20-40); Mean Corpuscular HGB Conc 33.2 g/dl (31.0-36.0); Mean Corpuscular Hemoglobin 27.8 pg (27.0-33.0); Mean Corpuscular Volume 83.8 fL (80.0-98.0); Mean Platelet Volume 10.2 fL (9.4-12.4); Monocytes Absolute Auto 0.8 X10*3/uL (0.1-1.2); Neutrophils Absolute Auto 6.6 x10*3/uL (2.0-8.3); Neutrophils Percent Auto 77.7 % (45-73); Platelet Count 235 X10*3/uL (160-400); Red Blood Count 3.45 X10*6/uL (4.60-5.80); Red Cell Distribution Width 18.2 % (11.0-16.0); White Blood Count 8.4 X10*3/uL (4.8-10.8)
[2023-12-10 11:20] VITALS: BP 120/48; PULSE 66; RESP 18; TEMP 36.7
== END 2023-12-10 11:22 | disposition home or self-care (01) ==
PROVIDERS: Emergency Medicine; Emergency Provider Emergency Medicine
DX: L76.22 Postprocedural hemorrhage of skin and subcutaneous tissue following other procedure (principal); Y84.8 Other medical procedures as the cause of abnormal reaction of the patient, or of later complication, without mention of misadventure at the time of the procedure; I48.91 Unspecified atrial fibrillation; Z79.01 Long term (current) use of anticoagulants
CPT/HCPCS: 36415; 80053; 85025; 85610; 99283; 99284

== ENCOUNTER → 2023-12-13 23:59 | Outpatient (BNV) | payer MEDICARE, SELFPAY ==
--- NOTE | 2023-12-21 11:12 | A.OFFVIS_ITS ---
Intake Visit Reasons: Remote HF monitoring- [employer] Allergies metoprolol Adverse Reaction (Uncoded 12/10/23 00:49) hypotensive narcotics Adverse Reaction (Uncoded 12/10/23 00:49) Nausea and Vomiting, hypotensive PFSH Medical History Biventricular ICD (implantable cardioverter-defibrillator) in place Syncope RBBB PVD (peripheral vascular disease) Hx of thyroid nodule GERD (gastroesophageal reflux disease) CAD (coronary artery disease) BPH (benign prostatic hyperplasia) Asthma Atrial fibrillation Surgical History Hx of CABG Hx of cardiac cath H/O right knee surgery H/O heart surgery Family History Mother Breast cancer Father Heart attack Brother Stomach cancer Brother Heart disease Social History Household Members: None Housing: House Do you presently have visiting nurse or other home services: No Alcohol intake: former Comment: pt refusing red socks, alarms, and camera Patient Tobacco Use Status: Former Tobacco user Years Smoked: 25 +/- Advance Directives Date on File: 10/31/23 service: No Office Procedures Cardiac Device Check Cardiac Device Check Details: Date of service- 12/13/2023; based on impedance data and physiological v ariables, there is no evidence of worsening congestive heart failure. [id number] Cardiac Device Interrogation, cardio physiologic monitor Procedure code (CPT) selection complete Assessment & Plan Assessment & Plan (1) Ischemic cardiomyopathy: Code(s): I25.5 - Ischemic cardiomyopathy Category: Medical (2) Chronic combined systolic and diastolic CHF (congestive heart failure): Code(s): I50.42 - Chronic combined systolic (congestive) and diastolic (congestive) heart failure Category: Medical Plan x Coding Level of Care Code Procedure Only Diagnoses Ischemic cardiomyopathy I25.5 Chronic combined systolic and diastolic CHF (congestive heart failure) I50.42 CPT Codes Cardiac Device Check - Cardiac Device 15: [id number] Cardiac Device Interrogation, cardio physiologic monitor ([id number])
== END ==
PROVIDERS: Visit Provider Internal Medicine
DX: I25.5 Ischemic cardiomyopathy (principal); I50.42 Chronic combined systolic (congestive) and diastolic (congestive) heart failure; Z95.0 Presence of cardiac pacemaker
CPT/HCPCS: 93297

== ENCOUNTER 2023-12-15 11:57 | Outpatient (REF) | payer MEDICARE, SELFPAY ==
[2023-12-15 14:17] LABS: MANUAL DIFF FLAG NO
[2023-12-15 14:28] LABS: Basophils Percent Auto 0.3 % (0-2); Eosinophils Absolute Auto 0.1 X10*3/uL (0.0-0.4); Eosinophils Percent Auto 1.4 % (0-4); Hematocrit 29.9 % (42.0-52.0); Hemoglobin 9.7 g/dl (14.0-18.0); Imm Gran Abs Auto 0.05 X10*3/uL (0.00-0.03); Imm Gran Pct Auto 0.6 % (0.0-0.4); Lymphocytes Absolute Auto 1.1 X10*3/uL (1.2-4.9); Lymphocytes Percent Auto 12.4 % (20-40); Mean Corpuscular HGB Conc 32.4 g/dl (31.0-36.0); Mean Corpuscular Hemoglobin 27.6 pg (27.0-33.0); Mean Corpuscular Volume 84.9 fL (80.0-98.0); Mean Platelet Volume 10.7 fL (9.4-12.4); Monocytes Absolute Auto 0.9 X10*3/uL (0.1-1.2); Monocytes Percent Auto 10.2 % (2-11); Neutrophils Absolute Auto 6.5 x10*3/uL (2.0-8.3); Neutrophils Percent Auto 75.1 % (45-73); Platelet Count 248 X10*3/uL (160-400); Red Blood Count 3.52 X10*6/uL (4.60-5.80); Red Cell Distribution Width 18.3 % (11.0-16.0); White Blood Count 8.6 X10*3/uL (4.8-10.8)
[2023-12-15 14:29] LABS: INTERNATIONAL NORM RATIO 1.2 (0.9-1.1); Prothrombin Time 14.2 SEC (11.1-13.3)
[2023-12-15 14:59] LABS: Anion Gap 14 (12-20); Blood Urea Nitrogen 35 mg/dL (9-16); Calcium 9.1 mg/dL (8.4-10.2); Carbon Dioxide 25 mmol/L (22-29); Chloride 104 mmol/L (96-108); Estimated Glomerular Filt Rate 48; Glucose Random 104 mg/dL (60-115); Magnesium 2.2 mg/dL (1.6-2.6); Potassium 4.8 mmol/L (3.3-5.1); Sodium 138 mmol/L (135-145)
== END 2023-12-15 11:58 | disposition home or self-care (01) ==
LOC: HO.WFDLDS 11:57
PROVIDERS: Visit Provider Nurse Practitioner
DX: Z01.812 Encounter for preprocedural laboratory examination (principal); Z79.01 Long term (current) use of anticoagulants; I47.20 Ventricular tachycardia, unspecified
CPT/HCPCS: 36415; 80048; 83735; 85025; 85610

== ENCOUNTER 2023-12-25 09:27 | Outpatient (REF) | payer MEDICARE, SELFPAY ==
[2023-12-25 11:36] LABS: Anion Gap 15 (12-20); Blood Urea Nitrogen 38 mg/dL (9-16); Calcium 8.7 mg/dL (8.4-10.2); Carbon Dioxide 28 mmol/L (22-29); Chloride 98 mmol/L (96-108); Estimated Glomerular Filt Rate 44; Glucose Random 112 mg/dL (60-115); Potassium 3.7 mmol/L (3.3-5.1); Sodium 137 mmol/L (135-145)
== END 2023-12-25 09:28 | disposition home or self-care (01) ==
LOC: HO.LAB 09:27
PROVIDERS: PCP Internal Medicine Sports Medicine; Visit Provider Internal Medicine
DX: I25.10 Atherosclerotic heart disease of native coronary artery without angina pectoris (principal); I50.42 Chronic combined systolic (congestive) and diastolic (congestive) heart failure; I47.20 Ventricular tachycardia, unspecified; I48.91 Unspecified atrial fibrillation; Z95.810 Presence of automatic (implantable) cardiac defibrillator
CPT/HCPCS: 36415; 80048; 99212

== ENCOUNTER 2023-12-25 09:27 | Outpatient (AMB) | payer MEDICARE, SELFPAY ==
--- NOTE | 2023-12-25 09:28 | A.OFFVIS_ITS ---
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 Accompanied by: Self / Same As Patient Allergies metoprolol Adverse Reaction (Uncoded 12/10/23 00:49) hypotensive narcotics Adverse Reaction (Uncoded 12/10/23 00:49) Nausea and Vomiting, hypotensive Medication List - Last Reconciled 12/25/23 by Evangelista Asher MD allopurinol 100 mg PO DAILY@0900 amiodarone 200 mg PO DAILY atorvastatin 40 mg PO BEDTIME bumetanide 1 mg PO DAILY cilostazol 50 mg PO BID empagliflozin (Jardiance) 10 mg PO DAILY finasteride 5 mg PO DAILY@0900 gabapentin 600 mg PO BEDTIME 90 days magnesium oxide 400 mg PO BID 90 days metoprolol tartrate 12.5 mg (1/2 x 25 mg) PO BID 90 days nitroglycerin 0.4 mg sublingual Q5M PRN pantoprazole 40 mg PO DAILY@0630 ranolazine ER 500 mg PO BID 90 days rivaroxaban (Xarelto) 20 mg PO QPM HPI Comments Details: Sherman returns for follow-up. Complicated history. Few weeks ago, he had an ICD shock. When he went to cardiac rehab, was noted to have polymorphic VT. He was started on amiodarone. After that, no further episodes of ventricular arrhythmias. Due to low blood pressure problems, he is off Entresto completely. He is only on a small dose of metoprolol which should be helping the ventricular arrhythmias as well. Otherwise, no clear-cut angina. Recently, he underwent a melanoma surgery in his head. After that, some bleeding issues and temporarily off anticoagulation. After that, it seems that he has been going down and retaining fluid. Currently taking Bumex 1-2 mg daily. Daughter who has the nurse has been adjusting the dosing. Otherwise, in May 2023, he traveled to [place] for a visit and in that setting, he had cardiac arrest. There was bystander CPR and AED shocks and then return of spontaneous circulation. Then taken to hospital and appropriately managed. In the hospital, rhythm was apparently ventricular fibrillation. Then he underwent left heart catheterization, but that showed no significant findings and he had patent grafts. He was also in congestive heart failure and was on diuretic drips and dobutamine drips as well. Eventually, he underwent a BiV ICD and then successfully discharged. [facility] Medical History Biventricular ICD (implantable cardioverter-defibrillator) in place Syncope RBBB PVD (peripheral vascular disease) Hx of thyroid nodule GERD (gastroesophageal reflux disease) CAD (coronary artery disease) BPH (benign prostatic hyperplasia) Asthma Atrial fibrillation Surgical History Hx of CABG Hx of cardiac cath H/O right knee surgery H/O heart surgery Family History Mother Breast cancer Father Heart attack Brother Stomach cancer Brother Heart disease Social History Household Members: None Housing: House Do you presently have visiting nurse or other home services: No Alcohol intake: former Comment: pt refusing red socks, alarms, and camera Patient Tobacco Use Status: Former Tobacco user Years Smoked: 25 +/- Advance Directives Date on File: 10/31/23 service: No Review of Systems Const Denies chills, Denies fatigue, Denies fever(s), Denies weight gain and Denies weight loss ENT Denies dizziness Card Denies chest pain, Denies leg edema, Denies lightheadedness, Denies palpitations, Denies dyspnea on exertion, Denies orthopnea and Denies other Resp Denies cough and Denies dyspnea on exertion GI Denies hematochezia and Denies change in stool character Musc Denies abnormal gait, Denies muscle weakness, Denies numbness, Denies radiating pain into limb and Denies tingling Neuro Denies abnormal gait, Denies dizziness, Denies numbness and Denies tingling Endo Denies fatigue and Denies palpitations Physical Exam Vital Signs: Last Vital Signs Pulse 78 12/25/23 09:32 BP 112/54 L 12/25/23 09:32 BMI result Body Mass Index 33.7 Const General: comfortable and no acute distress Orientation/consciousness: patient oriented x3 HEENT Other: Unremarkable Head: Yes normal to inspection Neck Neck: Yes normal visual inspection Chest Chest palpation & inspection: normal inspection of the chest Resp Auscultation: clear to auscultation bilaterally Cardio Palpation: normal PMI Heart sounds: S1 normal heart sound present, S2 normal heart sound present, no gallops, no murmurs and no rubs GI Palpation (GI): Soft to palpation Back/Spine/Pelvis Other: unremarkable Skin General skin exam: no rashes or lesions noted Neuro General: patient oriented x3 Extrem Other: 1+ edema General: Yes normal to inspection Psych Mental Status: mental status grossly normal Assessment & Plan Assessment & Plan (1) Atherosclerotic cardiovascular disease: Code(s): I25.10 - Atherosclerotic heart disease of [place] coronary artery without angina pectoris Category: Medical Plan: In the cardiac catheterization in 05/2023-heavily calcified and occluded left main, LAD, circumflex and right coronary arteries. Patent SHANE to LAD graft, SVG to OM branch of circumflex, SVG to PDA branch of RCA. He does not have any overt angina. The ventricular arrhythmias could be ischemic but as the grafts were wide open, do not see any obvious targets. Continue aspirin and statins. Daughter would like to come off Ranexa as she feels the swelling in his legs got worse after that. May hold for now. (2) Chronic combined systolic and diastolic CHF (congestive heart failure): Code(s): I50.42 - Chronic combined systolic (congestive) and diastolic (congestive) heart failure Category: Medical Plan: May keep on Bumex 1 mg daily. Add Jardiance. After this, if he still has edema then we can go up on the Bumex 2 mg daily. He does have some renal insufficiency. Check BMP today. In the most recent echocardiogram, LVEF is 46%. Per records in [place], LVEF is around 30% apparently. Otherwise, guideline based medical therapy is very limited because of hypotension issues. He is only on a small dose of beta-blockers. That should also help with ventricular arrhythmias. Otherwise, Entresto stopped because of hypotension. (3) Ventricular tachycardia: Code(s): I47.20 - Ventricular tachycardia, unspecified Category: Medical Plan: ICD shock recently; polymorphic VT while in cardiac rehab. Now on amiodarone. Continue. (4) Biventricular ICD (implantable cardioverter-defibrillator) in place: Code(s): Z95.810 - Presence of automatic (implantable) cardiac defibrillator Category: Medical Plan: Normally functioning and being monitored remotely. (5) Atrial fibrillation: Code(s): I48.91 - Unspecified atrial fibrillation Category: Medical Plan: Continue amiodarone and anticoagulation. Plan Discussed with daughter who came for appointment. Orders: Orders Basic Metabolic Panel Today I50.22 - Chronic systolic (congestive) heart failure Medications: New empagliflozin (Jardiance) 10 mg PO DAILY 90 tabs 3RF Coding Level of Care Code Est Pt Level 4 (81040) Diagnoses Atherosclerotic cardiovascular disease I25.10 Chronic combined systolic and diastolic CHF (congestive heart failure) I50.42 Ventricular tachycardia I47.20 Biventricular ICD (implantable cardioverter-defibrillator) in place Z95.810 Atrial fibrillation I48.91
[2023-12-25 09:32] VITALS: BP 112/54; PULSE 78; BMI 33.7
== END 2023-12-25 10:12 | disposition home or self-care (01) ==
PROVIDERS: Visit Provider Internal Medicine
DX: I25.10 Atherosclerotic heart disease of native coronary artery without angina pectoris (principal); I50.42 Chronic combined systolic (congestive) and diastolic (congestive) heart failure; I47.20 Ventricular tachycardia, unspecified; Z95.810 Presence of automatic (implantable) cardiac defibrillator; I48.91 Unspecified atrial fibrillation
CPT/HCPCS: 99214

== ENCOUNTER 2024-01-12 09:36 | Outpatient (REF) | payer MEDICARE, SELFPAY ==
[2024-01-12 11:31] LABS: MANUAL DIFF FLAG NO
[2024-01-12 11:34] LABS: Basophils Percent Auto 0.5 % (0-2); Eosinophils Absolute Auto 0.2 X10*3/uL (0.0-0.4); Eosinophils Percent Auto 2.3 % (0-4); Hematocrit 29.1 % (42.0-52.0); Hemoglobin 9.1 g/dl (14.0-18.0); Imm Gran Abs Auto 0.03 X10*3/uL (0.00-0.03); Imm Gran Pct Auto 0.5 % (0.0-0.4); Lymphocytes Absolute Auto 1.1 X10*3/uL (1.2-4.9); Lymphocytes Percent Auto 17.1 % (20-40); Mean Corpuscular HGB Conc 31.3 g/dl (31.0-36.0); Mean Corpuscular Volume 83.1 fL (80.0-98.0); Mean Platelet Volume 10.6 fL (9.4-12.4); Monocytes Absolute Auto 0.8 X10*3/uL (0.1-1.2); Monocytes Percent Auto 12.8 % (2-11); Neutrophils Absolute Auto 4.4 x10*3/uL (2.0-8.3); Neutrophils Percent Auto 66.8 % (45-73); Platelet Count 311 X10*3/uL (160-400); Red Cell Distribution Width 17.1 % (11.0-16.0); White Blood Count 6.6 X10*3/uL (4.8-10.8)
[2024-01-12 11:39] LABS: INTERNATIONAL NORM RATIO 3.6 (0.9-1.1); Prothrombin Time 43.9 SEC (11.1-13.3)
[2024-01-12 12:09] LABS: Iron 20 mcg/dL (45-160); Percent Iron Saturation 5 % (15-50); Total Iron Binding Capacity 384 mcg/dL (228-428); Unsaturated Iron Binding 364 ug/dL
[2024-01-12 12:19] LABS: Anion Gap 17 (12-20); Blood Urea Nitrogen 33 mg/dL (9-16); Calcium 9.2 mg/dL (8.4-10.2); Carbon Dioxide 24 mmol/L (22-29); Chloride 101 mmol/L (96-108); Estimated Glomerular Filt Rate 29; Glucose Random 110 mg/dL (60-115); Potassium 3.9 mmol/L (3.3-5.1); Sodium 138 mmol/L (135-145)
[2024-01-12 12:24] LABS: Ferritin 112 ng/mL (20-250)
== END 2024-01-12 09:37 | disposition home or self-care (01) ==
LOC: HO.WFDLDS 09:36
PROVIDERS: Internal Medicine Sports Medicine; Visit Provider Nurse Practitioner
DX: I50.42 Chronic combined systolic (congestive) and diastolic (congestive) heart failure (principal)
CPT/HCPCS: 36415; 80048; 82728; 83540; 85025; 85610; 85730

== ENCOUNTER → 2024-01-13 23:59 | Outpatient (BNV) | payer MEDICARE, SELFPAY ==
--- NOTE | 2024-01-13 15:13 | MHC.OFFVIS ---
Intake Visit Reasons: Remote HF monitoring- [employer] Allergies metoprolol Adverse Reaction (Uncoded 12/10/23 00:49) hypotensive narcotics Adverse Reaction (Uncoded 12/10/23 00:49) Nausea and Vomiting, hypotensive PFSH Medical History (Updated 01/13/24 @ 08:57 by Kary Briscoe NP) Elevated serum creatinine Biventricular ICD (implantable cardioverter-defibrillator) in place Syncope RBBB PVD (peripheral vascular disease) Hx of thyroid nodule GERD (gastroesophageal reflux disease) CAD (coronary artery disease) BPH (benign prostatic hyperplasia) Asthma Atrial fibrillation Surgical History Hx of CABG Hx of cardiac cath H/O right knee surgery H/O heart surgery Family History Mother Breast cancer Father Heart attack Brother Stomach cancer Brother Heart disease Social History Household Members: None Housing: House Do you presently have visiting nurse or other home services: No Alcohol intake: former Comment: pt refusing red socks, alarms, and camera Patient Tobacco Use Status: Former Tobacco user Years Smoked: 25 +/- Advance Directives Date on File: 10/31/23 service: No Office Procedures Cardiac Device Check Cardiac Device Check Details: Date of service- 01/13/2024; based on impedance data and physiological variables, there is no evidence of worsening congestive heart failure. [id number] Cardiac Device Interrogation, cardio physiologic monitor Procedure code (CPT) selection complete Assessment & Plan Assessment & Plan (1) Ischemic cardiomyopathy: Code(s): I25.5 - Ischemic cardiomyopathy Category: Medical Plan x Coding Level of Care Code Procedure Only Diagnoses Ischemic cardiomyopathy I25.5 CPT Codes Cardiac Device Check - Cardiac Device 15: [id number] Cardiac Device Interrogation, cardio physiologic monitor ([id number])
== END ==
PROVIDERS: PCP Internal Medicine Sports Medicine; Visit Provider Internal Medicine
DX: I25.5 Ischemic cardiomyopathy (principal); Z95.818 Presence of other cardiac implants and grafts
CPT/HCPCS: 93297

== ENCOUNTER 2024-01-19 08:59 | Outpatient (REF) | payer MEDICARE, SELFPAY ==
[2024-01-19 11:48] LABS: B Type Natriuretic Peptide 1728 pg/mL (<100)
[2024-01-19 11:50] LABS: Anion Gap 17 (12-20); Blood Urea Nitrogen 33 mg/dL (9-16); Calcium 8.5 mg/dL (8.4-10.2); Carbon Dioxide 23 mmol/L (22-29); Chloride 104 mmol/L (96-108); Estimated Glomerular Filt Rate 36; Glucose Random 130 mg/dL (60-115); Potassium 3.5 mmol/L (3.3-5.1); Sodium 140 mmol/L (135-145)
== END 2024-01-19 09:00 | disposition home or self-care (01) ==
LOC: HO.WFDLDS 08:59
PROVIDERS: Referring Provider Internal Medicine; Visit Provider Nurse Practitioner
DX: I50.42 Chronic combined systolic (congestive) and diastolic (congestive) heart failure (principal)
CPT/HCPCS: 36415; 80048; 83880

== ENCOUNTER 2024-02-05 09:35 | Outpatient (REF) | payer MEDICARE, SELFPAY ==
[2024-02-05 12:35] LABS: Anion Gap 17 (12-20); Blood Urea Nitrogen 37 mg/dL (9-16); Calcium 8.9 mg/dL (8.4-10.2); Carbon Dioxide 26 mmol/L (22-29); Chloride 100 mmol/L (96-108); Estimated Glomerular Filt Rate 36; Glucose Random 108 mg/dL (60-115); Potassium 3.9 mmol/L (3.3-5.1); Sodium 139 mmol/L (135-145)
[2024-02-05 12:40] LABS: B Type Natriuretic Peptide 1935 pg/mL (<100)
== END 2024-02-05 09:36 | disposition home or self-care (01) ==
LOC: HO.WFDLDS 09:35
PROVIDERS: Visit Provider Nurse Practitioner
DX: I50.42 Chronic combined systolic (congestive) and diastolic (congestive) heart failure (principal)
CPT/HCPCS: 36415; 80048; 83880

== ENCOUNTER 2024-02-09 14:48 | Outpatient (REF) | payer MEDICARE, SELFPAY ==
[2024-02-09 15:52] LABS: MANUAL DIFF FLAG NO
[2024-02-09 17:01] LABS: Basophils Absolute Auto 0.1 X10*3/uL (0.0-0.2); Basophils Percent Auto 0.5 % (0-2); Eosinophils Absolute Auto 0.4 X10*3/uL (0.0-0.4); Eosinophils Percent Auto 3.6 % (0-4); Hemoglobin 9.4 g/dl (14.0-18.0); Imm Gran Abs Auto 0.08 X10*3/uL (0.00-0.03); Imm Gran Pct Auto 0.8 % (0.0-0.4); Lymphocytes Absolute Auto 1.3 X10*3/uL (1.2-4.9); Lymphocytes Percent Auto 12.2 % (20-40); Mean Corpuscular HGB Conc 31.3 g/dl (31.0-36.0); Mean Corpuscular Hemoglobin 25.5 pg (27.0-33.0); Mean Corpuscular Volume 81.5 fL (80.0-98.0); Mean Platelet Volume 10.5 fL (9.4-12.4); Monocytes Absolute Auto 1.2 X10*3/uL (0.1-1.2); Monocytes Percent Auto 11.3 % (2-11); Neutrophils Absolute Auto 7.5 x10*3/uL (2.0-8.3); Neutrophils Percent Auto 71.6 % (45-73); Platelet Count 409 X10*3/uL (160-400); Red Blood Count 3.68 X10*6/uL (4.60-5.80); Red Cell Distribution Width 18.6 % (11.0-16.0); White Blood Count 10.5 X10*3/uL (4.8-10.8)
[2024-02-09 17:02] LABS: Appearance Urine Clear; Color Urine Yellow; Glucose Urine UA 500 mg/dL (Negative); Leukocyte Esterase Urine Negative (Negative); Nitrite Urine Negative (Negative); Specific Gravity - Urine 1.015 (1.005-1.025); UMIC TRIGGER UA YES; Urine Blood Negative (Negative); Urine Ketones Negative (Negative); Urine Protein 100 (2+) mg/dL (Neg-Trace)
[2024-02-09 17:20] LABS: Bacteria Urine None Seen (None Seen); Hyaline Casts Urine 0-2 /LPF (0-2); RBC Urine 0-2 /HPF (0-2); Squamous Epithelial Cell Urine 0-2 /HPF (0-2); WBC Urine 0-5 /HPF (0-5)
[2024-02-09 17:27] LABS: Alanine Aminotransferase 15 U/L (0-40); Albumin Level 3.7 g/dL (3.5-5.0); Alkaline Phosphatase 130 U/L (39-117); Anion Gap 19 (12-20); Aspartate Amino Transferase 30 U/L (5-37); Bilirubin Total 1.6 mg/dL (0.0-1.0); Blood Urea Nitrogen 50 mg/dL (9-16); Calcium 9.2 mg/dL (8.4-10.2); Carbon Dioxide 25 mmol/L (22-29); Chloride 98 mmol/L (96-108); Estimated Glomerular Filt Rate 29; Glucose Random 112 mg/dL (60-115); Potassium 3.9 mmol/L (3.3-5.1); Sodium 138 mmol/L (135-145); Total Protein 6.3 g/dL (6.5-8.0)
[2024-02-09 17:28] LABS: Creatinine Urine 74.78 mg/dL; Total Protein Urine Random 76 mg/dL (<12)
[2024-02-10 21:53] LABS: Prot Elec - Albumin 3.3 g/dL (3.8-4.8); Prot Elec - Alpha1 0.6 g/dL (0.2-0.3); Prot Elec - Alpha2 0.9 g/dL (0.5-0.9); Prot Elec - Beta 1 0.6 g/dL (0.4-0.6); Prot Elec - Beta 2 0.4 g/dL (0.2-0.5); Prot Elec - Gamma 0.4 g/dL (0.8-1.7); Prot Elec - Total Protein 6.1 g/dL (6.1-8.1)
[2024-02-11 01:58] LABS: Complement C3 82 mg/dL
[2024-02-17 08:23] LABS: Anti Glomerular Basement Memb <1.0 AI
[2024-02-18 19:52] LABS: IgA 320 mg/dL (70-320); IgG 441 mg/dL (600-1540); IgM 39 mg/dL (50-300)
== END 2024-02-09 14:49 | disposition home or self-care (01) ==
LOC: HO.LAB 14:48
PROVIDERS: PCP Internal Medicine Sports Medicine; Referring Provider Nurse Practitioner; Visit Provider Internal Medicine Hypertension Specialist
DX: I50.42 Chronic combined systolic (congestive) and diastolic (congestive) heart failure (principal); N17.9 Acute kidney failure, unspecified
CPT/HCPCS: 36415; 80053; 81001; 81003; 82570; 82784; 83520; 84156; 84165; 85025; 86160; 86334; 99202

== ENCOUNTER 2024-02-09 14:48 | Outpatient (AMB) | payer MEDICARE, SELFPAY ==
--- NOTE | 2024-02-09 14:49 | HO.NEPHOV_ITS ---
Vital Signs 02/09/24 14:50 Height 5 ft 4 in Weight 197 lb BMI 33.8 BP 108/54 L Blood Pressure Location Lt brachial Position Sitting Pulse 82 Pulse Source Pulse Oximeter Pulse Oximetry (%) 95 Oxygen Delivery Method Room Air Intake Visit Reasons: Other specified abnormal findings blood chemistry Veneer Glue Spreader Required: No Accompanied by: Daughter Allergies doxycycline Allergy (Unknown, Verified 02/09/24 14:53) Unknown narcotics Adverse Reaction (Uncoded 12/10/23 00:49) Nausea and Vomiting, hypotensive HPI Comments Details: 83-year-old male with history of cardiac arrest s/p biventricular ICD placement, paroxysmal atrial fibrillation anticoagulated with Eliquis, coronary artery disease, peripheral vascular disease, GERD, unspecified asthma, and obstructive sleep apnea In 06/04/2023 he had cardiac arrest and recovered. His baseline creatinine was around 0.8 mg/dL up until 11/03/2023. Between October and November 28 creatinine is bumped up to 1.8 and the highest reading was 2.2. At present creatinine is 1.8 mg/dL. For the last 2 months he has had significant fluid retention and is on Bumex 2 mg once a day without significant improvement. He continues to gain weight. He is on a low-sodium diet. He still has shortness of breath on exertion no chest pain. No nausea or vomiting. He has no specific urinary complaints. However sometimes he does not empty his bladder completely. He has history of alcohol intake in the past in the at present he does not consume alcohol. Remote history of smoking. [facility] Medical History (Updated 02/09/24 @ 15:15 by Young Anguiano MD) Elevated serum creatinine Biventricular ICD (implantable cardioverter-defibrillator) in place Syncope RBBB PVD (peripheral vascular disease) Hx of thyroid nodule GERD (gastroesophageal reflux disease) CAD (coronary artery disease) BPH (benign prostatic hyperplasia) Asthma Atrial fibrillation Surgical History Hx of CABG Hx of cardiac cath H/O right knee surgery H/O heart surgery Family History Mother Breast cancer Father Heart attack Brother Stomach cancer Brother Heart disease Social History Household Members: None Housing: House Do you presently have visiting nurse or other home services: No Alcohol intake: former Comment: pt refusing red socks, alarms, and camera Patient Tobacco Use Status: Former Tobacco user Years Smoked: 25 +/- Advance Directives Date on File: 10/31/23 service: No Physical Exam Vital Signs: Last Vital Signs Pulse 82 02/09/24 14:50 BP 108/54 L 02/09/24 14:50 Pulse Ox 95 02/09/24 14:50 Oxygen Delivery Method Room Air 02/09/24 14:50 BMI result Body Mass Index 33.8 Const General: comfortable; No acute distress Orientation/consciousness: patient oriented x3 Eyes General: appearance normal, both eyes and all related structures Visual Ingram: normal visual ingram by confrontation Neck Neck: Yes supple and Yes no JVD Resp Effort & Inspection: normal respiratory effort and respiratory effort not decreased Auscultation: rhonchi Cardio Palpation: no palpable S3 and no palpable S4 Heart sounds: no rubs GI Inspection: Yes distended Palpation (GI): Soft to palpation Percussion: Yes normal to percussion Auscultation: normal bowel sounds General: Yes no CVA tenderness Back/Spine/Pelvis Back: no CVA tenderness Skin General skin exam: no petechiae and no purpura Neuro General: patient oriented x3 and no focal motor deficits Extrem General: No clubbing and Yes edema (3+) Results Reviewed Nephrology Results: Hgb 9.1 g/dl (14.0-18.0) L 01/12/24 WBC 6.6 X10*3/uL (4.8-10.8) 01/12/24 Plt Count 311 X10*3/uL (160-400) 01/12/24 Sodium 139 mmol/L (135-145) 02/05/24 Potassium 3.9 mmol/L (3.3-5.1) 02/05/24 Chloride 100 mmol/L (96-108) 02/05/24 Carbon Dioxide 26 mmol/L (22-29) 02/05/24 BUN 37 mg/dL (9-16) H 02/05/24 Creatinine 1.82 mg/dL (0.5-1.4) H 02/05/24 Calcium 8.9 mg/dL (8.4-10.2) 02/05/24 Assessment & Plan Assessment & Plan (1) Chronic combined systolic and diastolic CHF (congestive heart failure): Code(s): I50.42 - Chronic combined systolic (congestive) and diastolic (congestive) heart failure Category: Medical (2) LIBRA (acute kidney injury): Code(s): N17.9 - Acute kidney failure, unspecified Category: Medical Plan Elderly man with a history of ischemic cardiomyopathy status post cardiac arrest who has congestive heart failure has worsening edema with acute kidney injury. Up until 11/03/2023 serum creatinine was at baseline of 0.8. Recently creatinine is bumped up to 1.8 mg/dL while he was on Bumex. Recent urinalysis was benign without any significant proteinuria or hematuria. No renal imaging available at this point. Acute kidney injury is most likely due to hypoperfusion in the setting of heart failure. He probably has cardiorenal syndrome. Obstructive uropathy has to be ruled out in this elderly man. For now I would continue the current dose of Bumex. Encouraged to continue with a low-sodium diet. Check renal ultrasonogram. Check urine for protein creatinine ratio along with serum electrophoresis. Check LFTs especially serum albumin. Repeat echocardiogram. Significant anemia with iron deficiency. Chronic low blood pressure in the setting of ischemic cardiomyopathy. Further workup will be based on the outcome of the above investigations I have reassured him and we will follow him along with the team. Orders: Orders Complete Blood Count Auto Diff Today I50.42 - Chronic combined systolic (congestive) and diastolic (congestive) heart failure, N17.9 - Acute kidney failure, unspecified Total Protein Urine Random Today I50.42 - Chronic combined systolic (congestive) and diastolic (congestive) heart failure, N17.9 - Acute kidney failure, unspecified Creatinine Urine Today I50.42 - Chronic combined systolic (congestive) and diastolic (congestive) heart failure, N17.9 - Acute kidney failure, unspecified Complement C3 Today I50.42 - Chronic combined systolic (congestive) and diastolic (congestive) heart failure, N17.9 - Acute kidney failure, unspecified Complement C4 Today I50.42 - Chronic combined systolic (congestive) and diastolic (congestive) heart failure, N17.9 - Acute kidney failure, unspecified Anti Glomerular Basement Memb Today I50.42 - Chronic combined systolic (congestive) and diastolic (congestive) heart failure, N17.9 - Acute kidney failure, unspecified Immunofixation Pnl, Serum Today I50.42 - Chronic combined systolic (congestive) and diastolic (congestive) heart failure, N17.9 - Acute kidney failure, unspecified Protein Electrophoresis, Serum Today I50.42 - Chronic combined systolic (congestive) and diastolic (congestive) heart failure, N17.9 - Acute kidney failure, unspecified US renal BI Today I50.42 - Chronic combined systolic (congestive) and diastolic (congestive) heart failure, N17.9 - Acute kidney failure, unspecified CA Echo Limited Today I50.42 - Chronic combined systolic (congestive) and diastolic (congestive) heart failure Comprehensive Met. Panel Today I50.42 - Chronic combined systolic (congestive) and diastolic (congestive) heart failure, N17.9 - Acute kidney failure, unspecified UA and rflx microscopic Today I50.42 - Chronic combined systolic (congestive) and diastolic (congestive) heart failure, N17.9 - Acute kidney failure, unspecified Coding Level of Care Code New Pt Level 5 (82517) Diagnoses Chronic combined systolic and diastolic CHF (congestive heart failure) I50.42 LIBRA (acute kidney injury) N17.9
[2024-02-09 14:50] VITALS: BP 108/54; PULSE 82; O2SAT 95; BMI 33.8
== END 2024-02-09 15:26 | disposition home or self-care (01) ==
PROVIDERS: PCP Internal Medicine Sports Medicine; Referring Provider Nurse Practitioner; Visit Provider Internal Medicine Hypertension Specialist
DX: N17.9 Acute kidney failure, unspecified (principal); I50.42 Chronic combined systolic (congestive) and diastolic (congestive) heart failure; I25.5 Ischemic cardiomyopathy; Z86.74 Personal history of sudden cardiac arrest; Z95.810 Presence of automatic (implantable) cardiac defibrillator
CPT/HCPCS: 99204

== ENCOUNTER 2024-02-11 10:11 | Outpatient (REF) | payer MEDICARE, SELFPAY ==
--- NOTE | ~2024-02-11 | US_ITS ---
EXAMINATION: US RETROPERITONEAL COMPLETE (RENAL) CLINICAL INFORMATION: Injury to the kidney. Pain. COMPARISON: None available. TECHNIQUE: Real-time imaging of the kidneys and bladder. FINDINGS: RIGHT KIDNEY: 11.3 x 4.7 x 4.3 cm (SAG x AP x TRV). The kidney is normal in size, contour, and echogenicity. Renal cortical thickness is normal. No calculi or focal parenchymal lesions. No hydronephrosis. LEFT KIDNEY: 11.5 x 5.5 x 3.6 cm (SAG x AP x TRV). The kidney is normal in size, contour, and echogenicity. Renal cortical thickness is normal. No calculi or focal parenchymal lesions. No hydronephrosis. The bladder was not scanned. Small amount of perihepatic ascites noted. Small right pleural effusion noted. US/US renal BI IMPRESSION: Unremarkable kidneys.. Electronically signed by: Manoj Johnson MD 02/11/2024 12:59 PM EDT
== END 2024-02-11 10:12 | disposition home or self-care (01) ==
LOC: HO.US 10:11
PROVIDERS: PCP Internal Medicine Sports Medicine; Visit Provider Internal Medicine Hypertension Specialist
DX: I50.42 Chronic combined systolic (congestive) and diastolic (congestive) heart failure (principal); N17.9 Acute kidney failure, unspecified
CPT/HCPCS: 76775

== ENCOUNTER → 2024-02-13 23:59 | Outpatient (BNV) | payer MEDICARE, SELFPAY ==
--- NOTE | 2024-02-22 14:27 | MHC.OFFVIS ---
Intake Visit Reasons: Remote ICD check- [employer] Allergies doxycycline Allergy (Unknown, Verified 02/18/24 14:29) Unknown narcotics Adverse Reaction (Uncoded 02/18/24 14:29) Nausea and Vomiting, hypotensive PFSH Medical History Elevated serum creatinine Biventricular ICD (implantable cardioverter-defibrillator) in place Syncope RBBB PVD (peripheral vascular disease) Hx of thyroid nodule GERD (gastroesophageal reflux disease) CAD (coronary artery disease) BPH (benign prostatic hyperplasia) Asthma Atrial fibrillation Surgical History Hx of CABG Hx of cardiac cath H/O right knee surgery H/O heart surgery Family History Mother Breast cancer Father Heart attack Brother Stomach cancer Brother Heart disease Social History Household Members: None Housing: House Do you presently have visiting nurse or other home services: No Alcohol intake: former Comment: pt refusing red socks, alarms, and camera Patient Tobacco Use Status: Former Tobacco user Years Smoked: 25 +/- Advance Directives Date on File: 10/31/23 service: Yes Office Procedures Cardiac Device Check Cardiac Device Check Details: Date of service 02/13/2024; Battery life >8 years; normal lead parameters; no treated VT/VF; effective V pacing 99%; normal ICD function. [id number] Cardiac Interrogation, implant defibrillator w/interim Procedure code (CPT) selection complete Assessment & Plan Assessment & Plan (1) Ischemic cardiomyopathy: Code(s): I25.5 - Ischemic cardiomyopathy Category: Medical Plan x Coding Level of Care Code Procedure Only Diagnoses Ischemic cardiomyopathy I25.5 CPT Codes Cardiac Device Check - Cardiac Device 13: [id number] Cardiac Interrogation, implant defibrillator w/interim ([id number])
== END ==
PROVIDERS: PCP Obstetrics & Gynecology; Visit Provider Internal Medicine
DX: I25.5 Ischemic cardiomyopathy (principal); Z95.810 Presence of automatic (implantable) cardiac defibrillator
CPT/HCPCS: 93295

== ENCOUNTER → 2024-02-13 23:59 | Outpatient (BNV) | payer MEDICARE, SELFPAY ==
--- NOTE | 2024-02-22 14:17 | MHC.OFFVIS ---
Intake Visit Reasons: Remote HF monitoring- [employer] Allergies doxycycline Allergy (Unknown, Verified 02/18/24 14:29) Unknown narcotics Adverse Reaction (Uncoded 02/18/24 14:29) Nausea and Vomiting, hypotensive PFSH Medical History Elevated serum creatinine Biventricular ICD (implantable cardioverter-defibrillator) in place Syncope RBBB PVD (peripheral vascular disease) Hx of thyroid nodule GERD (gastroesophageal reflux disease) CAD (coronary artery disease) BPH (benign prostatic hyperplasia) Asthma Atrial fibrillation Surgical History Hx of CABG Hx of cardiac cath H/O right knee surgery H/O heart surgery Family History Mother Breast cancer Father Heart attack Brother Stomach cancer Brother Heart disease Social History Household Members: None Housing: House Do you presently have visiting nurse or other home services: No Alcohol intake: former Comment: pt refusing red socks, alarms, and camera Patient Tobacco Use Status: Former Tobacco user Years Smoked: 25 +/- Advance Directives Date on File: 10/31/23 service: Yes Office Procedures Cardiac Device Check Cardiac Device Check Details: Date of service- 02/13/2024; based on impedance data and physiological variables, there is some up trend towards CHF. However, does not cross the line. [id number] Cardiac Device Interrogation, cardio physiologic monitor Procedure code (CPT) selection complete Assessment & Plan Assessment & Plan (1) Acute on chronic combined systolic and diastolic CHF (congestive heart failure): Code(s): I50.43 - Acute on chronic combined systolic (congestive) and diastolic (congestive) heart failure Category: Medical Plan x Coding Level of Care Code Procedure Only Diagnoses Acute on chronic combined systolic and diastolic CHF (congestive heart failure) I50.43 CPT Codes Cardiac Device Check - Cardiac Device 15: [id number] Cardiac Device Interrogation, cardio physiologic monitor ([id number])
== END ==
PROVIDERS: PCP Obstetrics & Gynecology; Visit Provider Internal Medicine
DX: I50.43 Acute on chronic combined systolic (congestive) and diastolic (congestive) heart failure (principal); Z95.810 Presence of automatic (implantable) cardiac defibrillator
CPT/HCPCS: 93297

== ENCOUNTER 2024-02-18 10:17 | Outpatient (REF) | payer MEDICARE, SELFPAY ==
[2024-02-18 14:54] LABS: Anion Gap 21 (12-20); Blood Urea Nitrogen 44 mg/dL (9-16); Calcium 8.8 mg/dL (8.4-10.2); Carbon Dioxide 21 mmol/L (22-29); Chloride 100 mmol/L (96-108); Estimated Glomerular Filt Rate 32; Glucose Random 115 mg/dL (60-115); Potassium 4.6 mmol/L (3.3-5.1); Sodium 137 mmol/L (135-145)
== END 2024-02-18 10:18 | disposition home or self-care (01) ==
LOC: HO.WFDLDS 10:17
PROVIDERS: Visit Provider Nurse Practitioner Family
DX: Z13.89 Encounter for screening for other disorder (principal)
CPT/HCPCS: 36415; 80048

== ENCOUNTER 2024-02-18 14:25 | Inpatient (IN) | payer MEDICARE, SELFPAY ==
[2024-02-18] VITALS (7 sets, daily range): BP systolic 97–126; BP diastolic 44–59; PULSE 60–98; RESP 15–20; TEMP 36.3–36.9; O2SAT 94–99; BMI 33.8; BMI 35.3
--- NOTE | ~2024-02-18 | XR_ITS ---
EXAMINATION: XR CHEST, 2 VIEWS CLINICAL INFORMATION: Shortness of breath. COMPARISON: 10/10/2003 TECHNIQUE: PA and lateral views of the chest were obtained. FINDINGS: Left pectoral AICD with leads terminating in the right atrium, right ventricle, and coronary sinus. The more cephalad to the sternal wires are fractured, unchanged. Multiple surgical clips over the cardiac silhouette. The cardiac silhouette is borderline enlarged. Atherosclerotic calcifications are present in the thoracic aorta. Small right pleural effusion. No left-sided effusion. No pneumothorax. No focal airspace consolidation. Mild pulmonary venous congestion is suspected. No interstitial edema. No acute osseous findings. XR/XR chest 2V IMPRESSION: Small right pleural effusion. Mild pulmonary venous congestion. No interstitial edema. Electronically signed by: Wily Hull MD 02/18/2024 04:11 PM EDT
--- NOTE | 2024-02-18 14:27 | ED.GENADULT ---
HPI - General Adult General Chief complaint: Dyspnea Stated complaint: SOB Time Seen by Provider: 02/18/24 14:33 Source: patient and family Mode of arrival: ambulatory Limitations: no limitations History of Present Illness HPI narrative: This is an 83-year-old man with a past medical history of cardiac arrest status post biventricular ICD placement, torsade de Pointe, paroxysmal atrial fibrillation (on Eliquis), CAD, PVD, GERD, unspecified asthma, obstructive sleep apnea, BPH, RBBB who presents for evaluation of dyspnea. Patient's daughter, Phoebe, present at time of history and exam. Patient states that he is experiencing dyspnea with very short exertion. Patient states increasing swelling to his legs. Patient states they have been slowly increasing his Bumex he is currently taking 4 mg of Bumex every day. He states that he did not take his dose yet today. He states that he has been urinating. He states no chest pain or exertional chest pain. He states no fever, cough or hemoptysis. He states no back pain or abdominal pain. Related Data Home Medications ?Medication ?Instructions ?Recorded ?Confirmed cilostazol 50 mg tablet 50 mg PO BID 06/18/21 03/04/24 finasteride 5 mg tablet 5 mg PO DAILY@0906/18/21 03/04/24 pantoprazole 40 mg tablet,delayed 40 mg PO BID@0630,1630 06/18/21 03/04/24 release allopurinol 100 mg tablet 100 mg PO DAILY@0900 10/27/23 03/04/24 atorvastatin 40 mg tablet 40 mg PO BEDTIME 10/27/23 03/04/24 amiodarone 200 mg tablet 200 mg PO DAILY@1700 12/25/23 03/04/24 ferrous sulfate 325 mg (65 mg 325 mg PO DAILY@0600 02/09/24 03/04/24 iron) tablet,delayed release rivaroxaban 15 mg tablet (Xarelto) 15 mg PO DAILY@1700 02/18/24 03/04/24 lorazepam 0.5 mg tablet 0.5 mg PO DAILY PRN 03/04/24 03/04/24 Previous Rx's ?Medication ?Instructions ?Recorded magnesium oxide 400 mg PO BID 90 days #180 tabs 12/08/23 bumetanide 1 mg tablet 2 mg (2 x 1 mg) PO BID Edema #120 02/21/24 tabs potassium chloride 20 mEq 40 meq (2 x 20 mEq) PO DAILY #180 02/21/24 tablet,extended tabs release(part/cryst) (Klor-Con M) gabapentin 600 mg tablet 600 mg PO BEDTIME 90 days #90 tabs 03/05/24 Allergies Allergy/AdvReac Type Severity Reaction Status Date / Time doxycycline Allergy Unknown Unknown Verified 03/04/24 13:23 narcotics AdvReac Nausea and Uncoded 02/18/24 14:29 Vomiting, hypotensive Review of Systems Review of Systems: ROS as per HPI [facility] Past Medical History Medical History Ischemic cardiomyopathy History of torsades de pointes Atherosclerotic cardiovascular disease Elevated serum creatinine Biventricular ICD (implantable cardioverter-defibrillator) in place Syncope RBBB PVD (peripheral vascular disease) Hx of thyroid nodule GERD (gastroesophageal reflux disease) CAD (coronary artery disease) BPH (benign prostatic hyperplasia) Asthma Atrial fibrillation Surgical History Hx of CABG Hx of cardiac cath H/O right knee surgery H/O heart surgery Family History Family History Mother Breast cancer Father Heart attack Brother Stomach cancer Brother Heart disease Social History Social History Household Members: None Housing: House Do you presently have visiting nurse or other home services: No Alcohol intake: former Comment: pt refusing red socks, alarms, and camera Patient Tobacco Use Status: Former Tobacco user Years Smoked: 25 +/- Advance Directives Date on File: 10/31/23 service: Yes Physical Exam ED Vital Signs: Vital Signs - 24 hr 02/18/24 14:27 02/18/24 15:07 02/18/24 15:27 Temperature 97.3 F 98.1 F Pulse Rate 72 61 Pulse Rate [Monitor] 60 Respiratory Rate 16 15 Blood Pressure 126/55 L 97/44 L Pulse Oximetry 99 95 Oxygen Delivery Method Room Air Room Air 02/18/24 16:18 Temperature Pulse Rate 98 Pulse Rate [Monitor] Respiratory Rate 15 Blood Pressure 116/53 L Pulse Oximetry 97 Oxygen Delivery Method Room Air BMI result Body Mass Index 33.8 Gen: NAD, AOx3 HEENT: NCAT, EOMI, normal conjunctiva CV: Diminished heart sounds, no murmurs appreciated, 2+ pretibial pitting edema, 1+ pitting edema extending up to the lower abdomen Pulm: Diminished lung sounds, minimal rales at the posterior lung bases, no wheezes or rhonchi GI: Soft, NTND, no rebound, guarding or rigidity Neuro: Grossly non focal Course Course Course Narrative: This is an RME: Additional HPI, ROS, PE not included below will be deferred to primary provider. RME assessment and note performed by: Phoebe Cifuentes PA-C This is a 83-year-old male, with a history of history of cardiac arrest s/p biventricular ICD placement, paroxysmal atrial fibrillation anticoagulated with Eliquis, coronary artery disease, peripheral vascular disease, GERD, unspecified asthma, and obstructive sleep apneawho presents emergency department with complaints of increased shortness for breath. They of increased Bumex dosage however this is not helping. Daughter, Phoebe, reporting that he is retaining fluid in his bilateral lower extremities as well as his abdomen. Plan: Labs, EKG, CXR, further ER eval needed Medications Administered Discontinued Medications Generic Name Dose Route Start Last Admin Trade Name Joseq PRN Reason Stop Dose Admin Allopurinol 100 mg 02/19/24 09:00 02/21/24 09:24 Allopurinol 100 Mg Tablet PO 100 mg DAILY@0900 EDVIN Administration Amiodarone HCl 200 mg 02/19/24 17:00 02/20/24 16:47 Amiodarone Hcl 200 Mg Tablet PO 200 mg DAILY@1700 EDVIN Administration Atorvastatin Calcium 40 mg 02/19/24 21:00 02/20/24 21:26 Atorvastatin Calcium 40 Mg Tablet PO 40 mg BEDTIME EDVIN Administration Cilostazol 50 mg 02/19/24 09:00 02/21/24 09:28 Cilostazol 50 Mg Tablet PO 50 mg BID EDVIN Administration Empagliflozin 10 mg 02/19/24 09:00 02/21/24 09:24 Empagliflozin 10 Mg Tablet PO 10 mg DAILY EDVIN Administration Ferrous Sulfate 324 mg 02/19/24 06:00 02/21/24 05:55 Ferrous Sulfate 324 Mg Tablet. PO 324 mg DAILY@0600 EDVIN Administration Finasteride 5 mg 02/19/24 09:00 02/21/24 09:25 Finasteride 5 Mg Tablet PO 5 mg DAILY@0900 EDVIN Administration Gabapentin 600 mg 02/19/24 21:00 02/20/24 21:26 Gabapentin 600 Mg Tablet PO 600 mg BEDTIME EDVIN Administration Bumetanide 25 mg/ IV 100 mls @ 2 mls/hr 02/18/24 16:00 02/19/24 14:39 Miscellaneous Supplies IVCONT Not Given .Q24H EDVIN 0.5 MG/HR Bumetanide 25 mg/ IV 100 mls @ 4 mls/hr 02/19/24 10:45 02/19/24 12:00 Miscellaneous Supplies IVCONT Not Given .Q24H EDVIN Bumetanide 25 mg/ IV 100 mls @ 2 mls/hr 02/19/24 11:45 02/21/24 13:20 Miscellaneous Supplies IVCONT Not Given .Q24H EDVIN Influenza Virus Vaccine 0.5 ml 02/20/24 15:08 02/20/24 16:47 Flu Vacc [id number](6mos Up)/Pf 0.5 Ml Syringe IM 02/20/24 15:09 0.5 ml .ONCE ONE Administration Lorazepam 0.5 mg 02/18/24 23:29 02/18/24 23:37 Lorazepam 0.5 Mg Tablet PO 02/18/24 23:30 0.5 mg ONCE ONE Administration Magnesium Oxide 400 mg 02/19/24 09:00 02/21/24 09:23 Magnesium Oxide 400 Mg Tablet PO 400 mg BID EDVIN Administration Metolazone 2.5 mg 02/19/24 10:20 02/21/24 09:24 Metolazone 2.5 Mg Tablet PO 2.5 mg DAILY EDVIN Administration Omeprazole 20 mg 02/19/24 06:30 02/21/24 05:55 Omeprazole 20 Mg Capsule.Dr PO 20 mg BID@0630,1630 EDVIN Administration Potassium Chloride 40 meq 02/19/24 10:30 02/19/24 16:03 Potassium Chloride Packet 20 Meq Packet PO 02/19/24 12:31 40 meq Q2H EDVIN Administration Potassium Chloride 40 meq 02/21/24 07:57 02/21/24 09:24 Potassium Chloride Er 20 Meq Tab.Er.Prt PO 02/21/24 07:58 40 meq ONCE ONE Administration Rivaroxaban 15 mg 02/19/24 17:00 02/20/24 16:47 Rivaroxaban 15 Mg Tablet PO 15 mg DAILY@1700 EDVIN Administration Sodium Chloride 3 ml 02/19/24 00:00 02/21/24 09:28 0.9 % Sodium Chloride Flush 3 Ml Syringe IVFLUSH 3 ml QSHIFT EDVIN Administration Spironolactone 25 mg 02/19/24 10:20 02/21/24 09:23 Spironolactone 25 Mg Tablet PO 25 mg DAILY EDVIN Administration Protocol Medical Decision Making Medical Decision Making MDM Narrative: Differential diagnosis includes, but is not limited to decompensated heart failure, pleural effusion, pulmonary edema, ACS. Exam as above is notable for findings consistent with fluid overload. I reviewed and interpreted patient's labs as below. Troponin is elevated which is thought to be demand ischemia in the setting of decompensated heart failure. I reviewed EKG as below which demonstrates no ST segment changes concerning for STEMI. I discussed the patient's case and management with information systems technician, Dr. Asher, recommends initiating patient on a Bumex drip at 1 milligram/hour, which is started here in the ED. I reviewed radiology impression of chest x-ray as below. I considered noninvasive mechanical ventilation, patient is not in respiratory distress is appropriate for continued IV diuresis at this time. I discussed patient's case and management with admitting hospitalist and patient is subsequently admitted in stable and improved condition for further workup and management. Critical Care Time: A total of 45 minutes spent in direct patient care with coordinating critical resuscitation, procedures, reviewing records, discussing with consultants, reviewing labs, and/or managing patient. Admission/Observation Consideration of admission/observation: Escalation of care including admission/observation considered Lab Data MDM Lab Attestation statement: I reviewed the patient's lab results. Patient's labs are notable for stable chronic anemia with hemoglobin 9.1 (previous 9.4), stable chronic kidney disease with creatinine 2.02 (previous 2.21), BNP 2625, troponin 203.6 ->207.5, 02/20/24 05:47 02/21/24 06:48 Labs: Lab Results 02/18/24 02/18/24 Range/Units 15:02 17:04 WBC 9.6 (4.8-10.8) X10*3/uL RBC 3.61 L (4.60-5.80) X10*6/uL Hgb 9.1 L (14.0-18.0) g/dl Hct 29.5 L (42.0-52.0) % MCV 81.7 (80.0-98.0) fL MCH 25.2 L (27.0-33.0) pg MCHC 30.8 L (31.0-36.0) g/dl RDW 20.2 H (11.0-16.0) % Plt Count 333 (160-400) X10*3/uL MPV 9.8 (9.4-12.4) fL Immature Gran % (Auto) 0.8 H (0.0-0.4) % Neut % (Auto) 74.9 H (45-73) % Lymph % (Auto) 11.6 L (20-40) % [place] % (Auto) 9.3 (2-11) % Eos % (Auto) 3.0 (0-4) % Baso % (Auto) 0.4 (0-2) % Lymph # (Auto) 1.1 L (1.2-4.9) X10*3/uL [place] # (Auto) 0.9 (0.1-1.2) X10*3/uL Eos # (Auto) 0.3 (0.0-0.4) X10*3/uL Baso # (Auto) 0.0 (0.0-0.2) X10*3/uL Abs Immat Gran (auto) 0.08 H (0.00-0.03) X10*3/uL Absolute Neuts (auto) 7.2 (2.0-8.3) x10*3/uL Absolute Nucleated RBC 0.000 (0.0-0.012) X10*3/uL Nucleated RBC % (auto) 0.0 (0.0-0.2) /100WBC PT 24.9 H D (11.1-13.3) SEC INR 2.0 H (0.9-1.1) APTT 40.7 H (26.0-36.8) SEC Sodium 138 (135-145) mmol/L Potassium 4.1 (3.3-5.1) mmol/L Chloride 100 (96-108) mmol/L Carbon Dioxide 27 (22-29) mmol/L Anion Gap 15 (12-20) BUN 45 H (9-16) mg/dL Creatinine 2.08 H (0.5-1.4) mg/dL Estim Creat Clear Calc 28.0 Estimated GFR 31 Random Glucose 92 (60-115) mg/dL Calcium 8.6 (8.4-10.2) mg/dL Magnesium 2.1 (1.6-2.6) mg/dL Total Bilirubin 1.2 H (0.0-1.0) mg/dL Direct Bilirubin 0.7 H (0.0-0.5) mg/dL AST 33 (5-37) U/L ALT 14 (0-40) U/L Alkaline Phosphatase 123 H (39-117) U/L Troponin I High Sens 203.6 H* D 207.5 H* (<3.5-35.0) ng/L B-Natriuretic Peptide 2625 H (<100) pg/mL Total Protein 6.3 L (6.5-8.0) g/dL Albumin 3.7 (3.5-5.0) g/dL Independent Interpretation I performed an independent interpretation of an: EKG Interpretation: I independently reviewed and interpreted the patient's EKG which demonstrates a paced rhythm at 72 beats per minute, TX 128, QRS 142, QTC 503, no STEMI Radiology Impression Discussion of test interpretation with radiology: I have reviewed the radiologist's reading. Radiologist Impression: XR/XR chest 2V IMPRESSION: Small right pleural effusion. Mild pulmonary venous congestion. No interstitial edema. Electronically signed by: Wily Hull MD 02/18/2024 04:11 PM EDT Dictated By: Wily Hull MD Signed By: <Electronically signed by Wily uHll MD in OV> 02/18/24 1611 Discharge Plan Discharge Clinical Impression: Acute decompensated heart failure, Elevated brain natriuretic peptide (BNP) level, Elevated troponin Patient Disposition: Admitted As Inpatient Interventions: Admission Worksheet (ED) Last Done: 02/18/24 20:08 Discharge Date/Time: 02/18/24 21:10
--- NOTE | 2024-02-18 14:28 | ECG_ITS ---
Test Reason : SOB Blood Pressure : / mmHG Vent. Rate : 072 BPM Atrial Rate : 072 BPM P-R Int : 128 ms QRS Dur : 142 ms QT Int : 460 ms P-R-T Axes : 000 173 -08 degrees QTc Int : 503 ms AV dual-paced rhythm Biventricular pacemaker detected Abnormal ECG When compared with ECG of 27-OCT-2023 16:47, Premature ventricular complexes are no longer Present Vent. rate has decreased BY 21 BPM Referred By: Phoebe Cifuentes Electronically Signed By:JONNIE MADDOX
--- NOTE | 2024-02-18 14:41 | ED.GENADULT ---
HPI - General Adult General Chief complaint: Dyspnea Stated complaint: SOB Time Seen by Provider: 02/18/24 14:33 Related Data Home Medications ?Medication ?Instructions ?Recorded ?Confirmed cilostazol 50 mg tablet 50 mg PO BID 06/18/21 12/25/23 finasteride 5 mg tablet 5 mg PO DAILY@0900 06/18/21 12/25/23 nitroglycerin 0.4 mg sublingual 0.4 mg sublingual Q5M PRN Chest 06/18/21 12/25/23 tablet Pain pantoprazole 40 mg tablet,delayed 40 mg PO DAILY@0630 06/18/21 12/25/23 release allopurinol 100 mg tablet 100 mg PO DAILY@0910/27/23 12/25/23 atorvastatin 40 mg tablet 40 mg PO BEDTIME 10/27/23 12/25/23 amiodarone 200 mg tablet 200 mg PO DAILY 12/25/23 ferrous sulfate 325 mg (65 mg 325 mg PO DAILY 02/09/24 iron) tablet,delayed release Previous Rx's ?Medication ?Instructions ?Recorded gabapentin 600 mg tablet 600 mg PO BEDTIME 90 days #90 tabs 10/01/23 metoprolol tartrate 25 mg tablet 12.5 mg (1/2 x 25 mg) PO BID 90 11/04/23 days #90 tabs magnesium oxide 400 mg PO BID 90 days #180 tabs 12/08/23 empagliflozin 10 mg tablet 10 mg PO DAILY #90 tabs 12/25/23 (Jardiance) rivaroxaban 15 mg tablet (Xarelto) 15 mg PO DAILY 90 days #90 tabs 12/29/23 bumetanide 1 mg tablet 2 mg (2 x 1 mg) PO DAILY Edema #90 02/06/24 tabs Allergies Allergy/AdvReac Type Severity Reaction Status Date / Time doxycycline Allergy Unknown Unknown Verified 02/18/24 14:29 narcotics AdvReac Nausea and Uncoded 02/18/24 14:29 Vomiting, hypotensive PMFSH Past Medical History Medical History (Updated 02/18/24 @ 16:43 by Javad Sparks MD) Elevated serum creatinine Biventricular ICD (implantable cardioverter-defibrillator) in place Syncope RBBB PVD (peripheral vascular disease) Hx of thyroid nodule GERD (gastroesophageal reflux disease) CAD (coronary artery disease) BPH (benign prostatic hyperplasia) Asthma Atrial fibrillation Surgical History Hx of CABG Hx of cardiac cath H/O right knee surgery H/O heart surgery Family History Family History Mother Breast cancer Father Heart attack Brother Stomach cancer Brother Heart disease Social History Social History Household Members: None Housing: House Do you presently have visiting nurse or other home services: No Alcohol intake: former Comment: pt refusing red socks, alarms, and camera Patient Tobacco Use Status: Former Tobacco user Years Smoked: 25 +/- Smoked in Last 30 Days: No Use of substances other than those prescribed or required for medical reasons: No Advance Directives: Yes Advance Directives on File: Yes Advance Directives Date on File: 10/31/23 Do you have a plan to hurt others: No Plan service: No Physical Exam ED Vital Signs: Vital Signs - 24 hr 02/18/24 14:27 02/18/24 15:07 02/18/24 15:27 Temperature 97.3 F 98.1 F Pulse Rate 72 61 Pulse Rate [Monitor] 60 Respiratory Rate 16 15 Blood Pressure 126/55 L 97/44 L Pulse Oximetry 99 95 Oxygen Delivery Method Room Air Room Air 02/18/24 16:18 Temperature Pulse Rate 98 Pulse Rate [Monitor] Respiratory Rate 15 Blood Pressure 116/53 L Pulse Oximetry 97 Oxygen Delivery Method Room Air BMI result Body Mass Index 33.8 Medications Administered Generic Name Dose Route Start Last Admin Trade Name Freq PRN Reason Stop Dose Admin Bumetanide 25 mg/ IV 100 mls @ 4 mls/hr 02/18/24 16:00 02/18/24 16:12 Miscellaneous Supplies IVCONT 1 mg/hr .Q24H EDVIN 4 mls/hr Administration 1 MG/HR Medical Decision Making Medical Decision Making MDM Narrative: Differential diagnosis includes, but is not limited to acute decompensated heart failure, fluid overload, acute kidney injury. Patient is afebrile and hemodynamically stable on room air. Exam is notable for pitting edema to the lower extremities extending superiorly to the inferior abdomen. I reviewed and interpreted the patient's labs as below. I reviewed and interpreted patient's EKG as below. I reviewed radiology impression of chest x-ray as below. Patient is initiated on Bumex gtt at 1 milligram/hour as per cardiology recommendations. Patient's case and management discussed with senior science consultant efficiency expert and hospitalist as below. Patient is subsequently admitted to hospitalist service for further workup and management of care Dr. Mota. Critical Care Time: A total of 45 minutes spent in direct patient care with coordinating critical resuscitation, procedures, reviewing records, discussing with consultants, reviewing labs, and/or managing patient. Admission/Observation Consideration of admission/observation: Escalation of care including admission/observation considered Consult Healthcare Provider Management of the patient was discussed with: Hospitalist and [employer] Manager I Discussed patient's case and management with his efficiency expert Dr. Asher who recommends admission for IV diuresis and r I ecommends 1 mg per hour IV Bumex, which is initiated. I discussed patient's case management with admitting hospitalist Dr. Mota Lab Data MDM Lab Attestation statement: I reviewed the patient's lab results. I reviewed patient's labs which were notable for stable chronic anemia with hemoglobin 9.1 (previous 9.4), stable creatinine 2.08 (previous 2.02), troponin 2 or 3.6 (suspect this is demand ischemia in the setting of acute decompensated heart failure. EKG has no ischemic changes. We will obtain serial troponin), BNP is elevated at 2625. 02/18/24 15:02 02/18/24 15:02 Labs: Lab Results 02/18/24 Range/Units 15:02 WBC 9.6 (4.8-10.8) X10*3/uL RBC 3.61 L (4.60-5.80) X10*6/uL Hgb 9.1 L (14.0-18.0) g/dl Hct 29.5 L (42.0-52.0) % MCV 81.7 (80.0-98.0) fL MCH 25.2 L (27.0-33.0) pg MCHC 30.8 L (31.0-36.0) g/dl RDW 20.2 H (11.0-16.0) % Plt Count 333 (160-400) X10*3/uL MPV 9.8 (9.4-12.4) fL Immature Gran % (Auto) 0.8 H (0.0-0.4) % Neut % (Auto) 74.9 H (45-73) % Lymph % (Auto) 11.6 L (20-40) % [place] % (Auto) 9.3 (2-11) % Eos % (Auto) 3.0 (0-4) % Baso % (Auto) 0.4 (0-2) % Lymph # (Auto) 1.1 L (1.2-4.9) X10*3/uL [place] # (Auto) 0.9 (0.1-1.2) X10*3/uL Eos # (Auto) 0.3 (0.0-0.4) X10*3/uL Baso # (Auto) 0.0 (0.0-0.2) X10*3/uL Abs Immat Gran (auto) 0.08 H (0.00-0.03) X10*3/uL Absolute Neuts (auto) 7.2 (2.0-8.3) x10*3/uL Absolute Nucleated RBC 0.000 (0.0-0.012) X10*3/uL Nucleated RBC % (auto) 0.0 (0.0-0.2) /100WBC PT 24.9 H D (11.1-13.3) SEC INR 2.0 H (0.9-1.1) APTT 40.7 H (26.0-36.8) SEC Sodium 138 (135-145) mmol/L Potassium 4.1 (3.3-5.1) mmol/L Chloride 100 (96-108) mmol/L Carbon Dioxide 27 (22-29) mmol/L Anion Gap 15 (12-20) BUN 45 H (9-16) mg/dL Creatinine 2.08 H (0.5-1.4) mg/dL Estim Creat Clear Calc 28.0 Estimated GFR 31 Random Glucose 92 (60-115) mg/dL Calcium 8.6 (8.4-10.2) mg/dL Magnesium 2.1 (1.6-2.6) mg/dL Total Bilirubin 1.2 H (0.0-1.0) mg/dL Direct Bilirubin 0.7 H (0.0-0.5) mg/dL AST 33 (5-37) U/L ALT 14 (0-40) U/L Alkaline Phosphatase 123 H (39-117) U/L Troponin I High Sens 203.6 H* D (<3.5-35.0) ng/L B-Natriuretic Peptide 2625 H (<100) pg/mL Total Protein 6.3 L (6.5-8.0) g/dL Albumin 3.7 (3.5-5.0) g/dL Independent Interpretation I performed an independent interpretation of an: EKG Interpretation: I independently reviewed and interpreted the patient's EKG which demonstrates paced rhythm at 72 beats per minute, OK 128, QRS 142, right bundle-branch block, QTC 503, no STEMI Radiology Impression Discussion of test interpretation with radiology: I have reviewed the radiologist's reading. Radiologist Impression: XR/XR chest 2V IMPRESSION: Small right pleural effusion. Mild pulmonary venous congestion. No interstitial edema. Electronically signed by: Wily Hull MD 02/18/2024 04:11 PM EDT RP Dictated By: Wily Hull MD Signed By: <Electronically signed by Wily Hull MD in OV> 02/18/24 1611 Discharge Plan Discharge Clinical Impression: Acute decompensated heart failure, Elevated brain natriuretic peptide (BNP) level, Elevated troponin Patient Disposition: Admitted As Inpatient Prescriptions: No Action metoprolol tartrate 25 mg tablet 12.5 mg PO BID 90 Days Qty: 90 1RF magnesium oxide 400 mg magnesium tablet 400 mg PO BID 90 Days Qty: 180 1RF Xarelto 15 mg tablet 15 mg PO DAILY 90 Days Qty: 90 1RF Rx Instructions: must administer with evening meal bumetanide 1 mg tablet 2 mg PO DAILY Qty: 90 3RF allopurinol 100 mg tablet 100 mg PO DAILY@0900 atorvastatin 40 mg tablet 40 mg PO BEDTIME pantoprazole 40 mg tablet,delayed release (DR/EC) 40 mg PO DAILY@0630 nitroglycerin 0.4 mg tablet, sublingual 0.4 mg sublingual Q5M PRN (Reason: Chest Pain) Rx Instructions: do not exceed 3 doses per episode finasteride 5 mg tablet 5 mg PO DAILY@0900 cilostazol 50 mg tablet 50 mg PO BID gabapentin 600 mg tablet 600 mg PO BEDTIME 90 Days Qty: 90 1RF Jardiance 10 mg tablet 10 mg PO DAILY Qty: 90 3RF amiodarone 200 mg tablet 200 mg PO DAILY ferrous sulfate 325 mg (65 mg iron) tablet,delayed release (DR/EC) 325 mg PO DAILY Print Language: Swedish
[2024-02-18 15:05] LABS: MANUAL DIFF FLAG NO
[2024-02-18 15:16] LABS: Prothrombin Time 24.9 SEC (11.1-13.3)
[2024-02-18 15:18] LABS: Partial Thromboplastin Time 40.7 SEC (26.0-36.8)
[2024-02-18 15:22] LABS: Basophils Percent Auto 0.4 % (0-2); Eosinophils Absolute Auto 0.3 X10*3/uL (0.0-0.4); Hematocrit 29.5 % (42.0-52.0); Hemoglobin 9.1 g/dl (14.0-18.0); Imm Gran Abs Auto 0.08 X10*3/uL (0.00-0.03); Imm Gran Pct Auto 0.8 % (0.0-0.4); Lymphocytes Absolute Auto 1.1 X10*3/uL (1.2-4.9); Lymphocytes Percent Auto 11.6 % (20-40); Mean Corpuscular HGB Conc 30.8 g/dl (31.0-36.0); Mean Corpuscular Hemoglobin 25.2 pg (27.0-33.0); Mean Corpuscular Volume 81.7 fL (80.0-98.0); Mean Platelet Volume 9.8 fL (9.4-12.4); Monocytes Absolute Auto 0.9 X10*3/uL (0.1-1.2); Monocytes Percent Auto 9.3 % (2-11); Neutrophils Absolute Auto 7.2 x10*3/uL (2.0-8.3); Neutrophils Percent Auto 74.9 % (45-73); Platelet Count 333 X10*3/uL (160-400); Red Blood Count 3.61 X10*6/uL (4.60-5.80); Red Cell Distribution Width 20.2 % (11.0-16.0); White Blood Count 9.6 X10*3/uL (4.8-10.8)
--- NOTE | 2024-02-18 15:22 | PC.NURSE ---
patient presents to ED with cc of shortness of breath and increased swelling and weeping of BLE. patient with hx of CHF, takes bumex at home and recently had dose increased however states it does not seem to be working. patient endorsing dyspnea upon exertion and pain in his legs when he tries to ambulate. patient speaking in clear and complete sentences, saturating well on room air maintaining at 95-98%. V paced rhythm on monitor at 60bpm. patient bp soft 90s/40s, no increased work of breathing noted. 3+ pitting edema noted to BLE with weeping appreciated on the left side. patient lung sounds diminished bilaterally, endorsing some difficulty taking a deep breath. patient denies any fevers or chills or sick contacts, denies any difficulty using the bathroom, abdomen appears distended and firm, family at bedside states its usually big but it appears bigger than normal, normoactive bowel sounds appreciated in all four quadrants. 18g PIV placed in RAC, blood work drawn and sent by this RN. awaiting MD gómez. plan of care ongoing
[2024-02-18 15:24] LABS: Alanine Aminotransferase 14 U/L (0-40); Albumin Level 3.7 g/dL (3.5-5.0); Alkaline Phosphatase 123 U/L (39-117); Anion Gap 15 (12-20); Aspartate Amino Transferase 33 U/L (5-37); Bilirubin Direct 0.7 mg/dL (0.0-0.5); Bilirubin Total 1.2 mg/dL (0.0-1.0); Blood Urea Nitrogen 45 mg/dL (9-16); Calcium 8.6 mg/dL (8.4-10.2); Carbon Dioxide 27 mmol/L (22-29); Chloride 100 mmol/L (96-108); Estimated Glomerular Filt Rate 31; Glucose Random 92 mg/dL (60-115); Magnesium 2.1 mg/dL (1.6-2.6); Potassium 4.1 mmol/L (3.3-5.1); Sodium 138 mmol/L (135-145); Total Protein 6.3 g/dL (6.5-8.0)
[2024-02-18 15:34] LABS: B Type Natriuretic Peptide 2625 pg/mL (<100); Troponin-I High Sensitivity 203.6 ng/L (<3.5-35.0)
--- NOTE | 2024-02-18 15:34 | PC.NURSE ---
pharmacy called to request Bumex infusion
--- NOTE | 2024-02-18 16:21 | PC.NURSE ---
patient daughter Phoebe Stoddard is an employee at the [employer], states we can tiger text her with any updates or questions
--- NOTE | 2024-02-18 16:23 | PC.NURSE ---
patient bumex arrived from pharmacy running through IV pump at this time per Aug, catheter placed on patient for comfort. call rosario within reach, lights dimmed, patient educated on use of callbell, plan of care ongoing
[2024-02-18 17:32] LABS: Troponin-I High Sensitivity 207.5 ng/L (<3.5-35.0)
--- NOTE | 2024-02-18 17:55 | P.HPHOSP_ITS ---
History of Present Illness Date of Service: 02/18/24 Attending physician on admission: Alessandra Mota Chief Complaint: SOB, LLE Pt is an 83-year-old male with a PMH significant for?CAD, cardiac arrest in Mar 2023 s/p biventricular ICD in place, paroxysmal AFib on Xarelto, peripheral vascular disease, HFrEF, CKD 3, unspecified asthma, GERD, gout, and KEVIN on nasal CPAP who presents to the ED with?increasing lower leg edema unresponsive to p.o. diuretics. States has had increased lower leg and abdominal edema, SOB, and SALAS for the past 1.5 weeks. Patient follows with Dr. Asher in Cardiology who increased his home p.o. Bumex from 2 mg to 4 mg to little effect. Patient states continues to have increasing fluid buildup in his legs despite increased diuretics, to the point where the skin will burst and start bleeding. Also has been experiencing paroxysmal nocturnal dyspnea and orthopnea. Denies chest pain/pressure, palpitations. No fever, chills, nausea, vomiting, abdominal pain. Denies headache. In the ED pt with soft BP of 97/44, otherwise vitals WNL. Labs were significant for normocytic anemia of 9.1/29.5 (around baseline), creatinine 2.02 (similar to previous of 2.21 on 02/09/2024), bilirubin 1.2, alk-phos 123, initial troponin 203.6 with repeat flat at 207.5, and BNP 2625 (significantly increased from 1935 on 02/04). CXR showed small right pleural effusion with mild pulmonary venous congestion but no interstitial edema. EKG demonstrated AV dual paced rhythm with QTc 503. In the ED patient was placed on a bumetanide drip at 1 mg/hr per Cardiology recommendation. Pt will be admitted to the hospital for acute HFrEF exacerbation nonresponsive to outpatient p.o. medications. Review of Systems 2 Review of Systems: LLE, abd edema SOB, SALAS Orthopnea, PND Denies chest pain/pressure, palpitations No fever, chills, nausea, vomiting, diarrhea Denies abdominal pain [facility] Medical History Elevated serum creatinine Biventricular ICD (implantable cardioverter-defibrillator) in place Syncope RBBB PVD (peripheral vascular disease) Hx of thyroid nodule GERD (gastroesophageal reflux disease) CAD (coronary artery disease) BPH (benign prostatic hyperplasia) Asthma Atrial fibrillation Family History Mother Breast cancer Father Heart attack Brother Stomach cancer Brother Heart disease Surgical History Hx of CABG Hx of cardiac cath H/O right knee surgery H/O heart surgery Social History Household Members: None Housing: House Do you presently have visiting nurse or other home services: No Alcohol intake: former Comment: pt refusing red socks, alarms, and camera Patient Tobacco Use Status: Former Tobacco user Years Smoked: 25 +/- Smoked in Last 30 Days: No Use of substances other than those prescribed or required for medical reasons: No Currently Displaying Signs/Symptoms of Drug Intoxication Withdrawal: No Any prior treatment program specific to substance use: No Have you been hit, kicked, punched, or otherwise hurt by someone within the past year? If so, by whom?: No Do you feel safe in your current relationship?: No Current Relationship Is there a partner from a previous relationship who is making you feel unsafe now?: No Are you made to feel afraid or neglected: No [facility] Practices: Taoism Advance Directives: Yes Advance Directives on File: Yes Advance Directives Date on File: 10/31/23 Do you have a plan to hurt others: No Plan Recently lost weight without trying: No How much weight loss: Not applicable Eating poorly because of decreased appetite: No Nutrition screen score: 0 Nutrition Risks: No Nutritional Risk Poor oral hygiene: No service: Yes Meds Allergies Allergy/AdvReac Type Severity Reaction Status Date / Time doxycycline Allergy Unknown Unknown Verified 02/18/24 14:29 narcotics AdvReac Nausea and Uncoded 02/18/24 14:29 Vomiting, hypotensive Active Medications: Current Medications Bumetanide 25 mg/ IV (Miscellaneous Supplies) 100 mls @ 4 mls/hr IVCONT .Q24H EDVIN Last Admin: 02/18/24 16:12 Dose: 1 mg/hr, 4 mls/hr Home Medications ?Medication ?Instructions ?Recorded ?Confirmed ?Last Taken ?Type cilostazol 50 mg tablet 50 mg PO BID 06/18/21 02/18/24 02/18/24 History finasteride 5 mg tablet 5 mg PO DAILY@89906/18/21 02/18/24 02/18/24 History pantoprazole 40 mg tablet,delayed 40 mg PO BID@0630,1630 06/18/21 02/18/24 02/18/24 History release allopurinol 100 mg tablet 100 mg PO DAILY@89910/27/23 02/18/24 02/18/24 History atorvastatin 40 mg tablet 40 mg PO BEDTIME 10/27/23 02/18/24 02/18/24 History amiodarone 200 mg tablet 200 mg PO DAILY@169912/25/23 02/18/24 02/18/24 History ferrous sulfate 325 mg (65 mg 325 mg PO DAILY@59902/09/24 02/18/24 02/18/24 History iron) tablet,delayed release rivaroxaban 15 mg tablet (Xarelto) 15 mg PO DAILY@169902/18/24 02/18/24 02/18/24 History Physical Exam 2 Vital Signs and Narrative: Vital Signs: Last Vital Signs Temp 98.1 F 02/18/24 15:07 Pulse 98 02/18/24 16:18 Resp 15 02/18/24 16:18 BP 116/53 L 02/18/24 16:18 Pulse Ox 97 02/18/24 16:18 O2 Del Method Room Air 02/18/24 16:18 BMI result Body Mass Index 33.8 General: AOx3, no acute distress Resp: CTA bilaterally CVS: S1, S2, RRR GI: +BS, NT, no distention Skin: Warm, dry Neuro: Cranial nerves II-XII grossly intact bilaterally. Motor grossly intact bilaterally Extremities: 3+ bilateral pitting edema Psych: Appropriate affect Results Labs 02/20/24 05:47 02/21/24 06:48 Labs: Laboratory Results - last 24 hr 02/18/24 02/18/24 15:02 17:04 MCV 81.7 MCH 25.2 L MCHC 30.8 L RDW 20.2 H Plt Count 333 MPV 9.8 Immature Gran % (Auto) 0.8 H Neut % (Auto) 74.9 H Lymph % (Auto) 11.6 L [place] % (Auto) 9.3 Eos % (Auto) 3.0 Baso % (Auto) 0.4 Lymph # (Auto) 1.1 L [place] # (Auto) 0.9 Eos # (Auto) 0.3 Baso # (Auto) 0.0 Abs Immat Gran (auto) 0.08 H Absolute Neuts (auto) 7.2 Absolute Nucleated RBC 0.000 Nucleated RBC % (auto) 0.0 PT 24.9 H D INR 2.0 H APTT 40.7 H Anion Gap 15 Estim Creat Clear Calc 28.0 Estimated GFR 31 Random Glucose 92 Calcium 8.6 Magnesium 2.1 Total Bilirubin 1.2 H Direct Bilirubin 0.7 H AST 33 ALT 14 Alkaline Phosphatase 123 H Troponin I High Sens 203.6 H* D 207.5 H* B-Natriuretic Peptide 2625 H Total Protein 6.3 L Albumin 3.7 Imaging Radiologist's Impressions: Impressions Chest X-Ray 02/18/24 14:31 IMPRESSION: Small right pleural effusion. Mild pulmonary venous congestion. No interstitial edema. Electronically signed by: Wily Hull MD 02/18/2024 04:11 PM EDT RP Assessment and Plan (1) Acute decompensated heart failure: Status: Acute Plan Pt is an 83-year-old male with a PMH significant for?CAD, cardiac arrest in Mar 2023 s/p biventricular ICD in place, paroxysmal AFib on Xarelto, peripheral vascular disease, HFrEF, CKD 3, unspecified asthma, GERD, gout, and KEVIN on nasal CPAP who presents to the ED with?increasing lower leg edema and SOB. Pt will be admitted to the hospital for acute HFrEF exacerbation nonresponsive to outpatient p.o. medications. Acute HFrEF exacerbation Patient with increased SOB, SALAS, lower leg and abdominal edema, elevated BNP, CXR with pleural effusion Cardiology Outpatient increased Bumex from 2 mg to 4 mg to little effect Patient placed on Bumex drip at 1 mg/hr per cardiology, continue for now Follow lytes, I/O, kidney function Low-salt diet, daily weights Continue Jardiance, metoprolol Cardiology consult Will defer echo pending cardiology input Monitor on telemetry Elevated troponins Initial troponin 203.6 with repeat flat at 207.5 Patient asymptomatic, EKG nonischemic Likely type 2 in the setting of increased demand Monitor on telemetry CKD 3 Creatinine 2.02 at time of presentation, improved from previous of 2.21 on 02/08 Follow kidney function closely while on diuretics Anemia Likely of chronic disease H&H 9.129.5, stable, around baseline No reported bleeding, denies hematochezia, melena, hematemesis, hemoptysis Continue iron supplementation Follow CBC CAD Continue statin, aspirin Paroxysmal AFib Continue metoprolol, Xarelto, amiodorone GERD PPI Full Code Attending:?Dr. Mota DVT Prophylaxis: On Xerelto Pt will require a hospitalization of at least two nights for treatment of?acute HFrEF exacerbation nonresponsive to outpatient p.o. medications. He will need inpatient treatment with IV diuretics that require close monitoring of cardiac function and electrolyte levels. Quality Stroke Does the patient have a stroke diagnosis?: No VTE Prior VTE?: No VTE Risk Level:: Medical - moderate - high VTE Device Contraindication: Treatment Not Indicated VTE Drug Contraindication: N/A - Med Ordered
--- NOTE | 2024-02-18 19:03 | PHA.MEDREC ---
Addendum entered by Damir Bueno [facility] 02/18/24 19:13: MED REC CHECKED BY [facility] Original Note: Pharmacy Consult ? Medication Reconciliation Pharmacy has completed the medication reconciliation. Spoke to patient to confirm med list. Patient was very kind and had a list of medications with him. Patient states Xeralto is 15 mg, Bumetanide was increased to 4 mg daily.
[2024-02-18] MEDS: LORazepam 0.5 MG TABLET PO (23:37)
[2024-02-19 03:39] VITALS: BP 130/60; PULSE 61; RESP 20; TEMP 36.5; O2SAT 93
[2024-02-19] MEDS: Omeprazole 20 MG CAPSULE.DR PO ×2 (05:49→16:03)
[2024-02-19] MEDS: Ferrous Sulfate 324 MG TABLET.DR PO (05:49)
[2024-02-19 06:00] VITALS: BMI 34.0
--- NOTE | 2024-02-19 07:00 | CA_ITS ---
Transthoracic Echocardiogram Patient (Last, First, Middle): Sherman Hurtado P Gender: Male Date of : 1940 Age: 83 Procedure Date: 02/19/2024 Procedure Type: Transthoracic Echocardiogram Location: [facility] [place] Height: 175.26 cm Weight: 89.81 kg BSA: 2.06 m2 Heart Rate: bpm BP: 122 / 56 mmHg Price Analyst: TO Referring MD: Evangelista Asher MD Symptoms: CHF Study Quality: Adequate w contrast ECG Rhythm: Ventriculary paced rhythm Conclusions: - The left ventricular systolic function is mildly decreased. The calculated ejection fraction is 46% by biplane method. - The basal inferior segment is akinetic. - The left atrium is severely dilated. - There is mild aortic valve regurgitation. - There is mild to moderate mitral valve regurgitation. - There is mild tricuspid valve regurgitation. - Mild pulmonary hypertension is present. Findings Procedure Information Contrast agent, definity, is being given per protocol without apparent complications. Left Ventricle Mildly increased left ventricular cavity size. There is normal left ventricular wall thickness. The left ventricular systolic function is mildly decreased. The calculated ejection fraction is 46% by biplane method. There is evidence of regional wall motion abnormalities. Probable advanced diastolic dysfunction. Wall Motion Rest Echo Findings The basal inferior segment is akinetic. Right Ventricle Mildly increased right ventricular cavity size. There is mildly decreased right ventricular systolic function. There is a pacemaker wire seen in the right ventricle. Atria The left atrium is severely dilated. The right atrium is mildly dilated. Aortic Valve There is mild calcification of the aortic valve. There is no aortic valve stenosis. There is mild aortic valve regurgitation. Mitral Valve The mitral valve appears normal. There is mild to moderate mitral valve regurgitation. There is no mitral valve stenosis. Pulmonic Valve The pulmonic valve is likely normal. Tricuspid Valve There is mild tricuspid valve regurgitation. Mild pulmonary hypertension is present. Great Vessels The asc aorta is normal in size. Small plaque is seen in the sino tubular ridge. Venous The inferior vena cava is dilated and collapses less than 50% with inspiration. Pericardium/Pleural There is no evidence of pericardial effusion. Left pleural effusion, difficult to assess size. Prior Study Comparison Changes noted compared to prior study dated: 07/23/2023. Progression of valvular regurgitation. Measurements 2D Linear Measurements IVSd: 0.96 0.6-0.9/0.6-1.0 cm LVIDd: 5.68 3.9-5.3/4.2-5.9 cm LVIDd Index: 2.76 2.4-3.2/2.2-3.1 cm/m2 LVIDs: 3.98 2.0-3.6 cm LVPWd: 0.84 0.7-1.1 cm LA Diam: 4.90 2.7-3.8/3.0-4.0 cm LAIDs Index: 2.38 1.5-2.3 cm/m2 LV Mass: 245.72 67-162/88-224 g LV Mass Index: 119.28 43-95/49-115 g/m2 LVOT Diam: 2.20 3.0+(-)1.3 cm 2D Systolic Function EF 4C: 49.90 >55% EF 2C: 41.50 >55% EF BiP: 45.50 >55% Mitral Valve MV VTI: 0.33 MV Pk Thaddeus: 1.12 MV Mn Thaddeus: 0.53 MV Pk Grad: 5.00 MV Mn Grad: 1.00 MV Pk E: 0.95 MV Decel Time: 204.00 E'Lateral: 6.53 E'Medial: 5.04 E/E' Med: 18.80 E/E' Lat: 14.50 PHT: 59.00 MVA PHT: 3.73 MVA Continuity: 2.18 Decel [place]: 4.68 MR Vol - PW Dopp: 23.76 MR VTI: 1.32 MR ERO: 18.00 MR Alias Thaddeus: 0.35 MR RAD: 0.60 Aortic Valve AoV Pk Thaddeus: 1.90 AoV Mn Thaddeus: 1.32 AoV VTI: 0.36 AoV Pk Grad: 14.00 Aov Mn Grad: 8.00 ARIANNA Cont.VTI: 2.02 AI Pk Thaddeus: 3.06 AI [place]: 1.73 LVOT LVOT Pk Thaddeus: 0.92 LVOT Mn Thaddeus: 0.62 LVOT VTI: 0.19 LVOT Pk Grad: 3.00 LVOT Mn Grad: 2.00 LVOT Diam: 2.20 LVOT Area: 3.80 Diastolic Function MV Pk E: 0.95 E'Medial: 5.04 E/E' Med: 18.80 E' Laterial: 6.53 E/E' Lat: 14.50 Right Ventricle TAPSE (mm): 12.40 TVS' Thaddeus: 10.10 Tricuspid Valve TR Pk Thaddeus: 2.59 TR Pk Grad: 27.00 RA Press: 15.00 RVSP: 52.00 Great Vessels Aorta Sinus of Valsalva: 3.11 2.0-3.5 cm Ao Asc: 3.40 2.1-3.4 cm Updated in Other Vendor System with Status of Final Evangelista Asher MD electronically signed on 02/19/2024 3:53:05 PM with status of Final
[2024-02-19 07:47] VITALS: BP 122/56; PULSE 60; RESP 20; TEMP 36.5; O2SAT 96
[2024-02-19 07:53] LABS: Hematocrit 26.6 % (42.0-52.0); Hemoglobin 8.4 g/dl (14.0-18.0); Mean Corpuscular HGB Conc 31.6 g/dl (31.0-36.0); Mean Corpuscular Hemoglobin 25.6 pg (27.0-33.0); Mean Corpuscular Volume 81.1 fL (80.0-98.0); Mean Platelet Volume 9.8 fL (9.4-12.4); Platelet Count 288 X10*3/uL (160-400); Red Blood Count 3.28 X10*6/uL (4.60-5.80); White Blood Count 7.9 X10*3/uL (4.8-10.8)
[2024-02-19 08:07] LABS: Blood Urea Nitrogen 42 mg/dL (9-16); Calcium 8.4 mg/dL (8.4-10.2); Creatinine Clr Calc Pharmacy 30.8; Estimated Glomerular Filt Rate 34; Glucose Random 100 mg/dL (60-115); Magnesium 2.1 mg/dL (1.6-2.6)
[2024-02-19] MEDS: Empagliflozin 10 MG TABLET PO (08:22)
[2024-02-19] MEDS: cilostazoL 50 MG TABLET PO ×2 (08:23→20:14)
[2024-02-19] MEDS: Finasteride 5 MG TABLET PO (08:23)
[2024-02-19] MEDS: Magnesium Oxide 400 MG TABLET PO ×2 (08:23→20:13)
[2024-02-19] MEDS: 0.9 % Sodium Chloride Flush 3 ML SYRINGE IVFLUSH ×3 (08:23→20:14)
[2024-02-19] MEDS: allopurinoL 100 MG TABLET PO (08:23)
--- NOTE | 2024-02-19 08:59 | PM.CNCAR ---
History of Present Illness History of Present Illness Date of Service: 02/19/24 Chief complaint: Acute HFrEF exacerbation Narrative: This is a cardiology consultation regarding congestive heart failure. Patient was last seen in the clinic in December. He has history of coronary disease and coronary artery bypass surgery. In 06/04/2023, he went to [place] where he had a witnessed cardiac arrest. At that time, he underwent cardiac catheterization showing patent grafts. He was not congestive heart failure and required diuretic drips and inotropes. Then had a Bi V ICD placed. He has switched his care to us after that. 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 After that, he has been on amiodarone. He has been able to tolerate meds like Entresto because of low blood pressure issues. He also has chronic kidney disease. He was on Bumex 1 mg daily. Because of increasing shortness of breath and leg swelling, we went up to 2 mg daily. He was still having shortness of breath and hence couple of days ago, we asked him to go up even higher to 4 mg daily. As he still had some shortness of breath and leg swelling, he was brought to ER and admitted. We have been discussing with his daughter who is also a nurse here about his care frequently over the last few weeks. After admission, he has been on Bumex drip. He states he is better. He has been diuresing. Review of Systems Review of Systems: Yes all other systems are reviewed and are negative Constitutional: Constitutional: Reports as per HPI and Reports no additional constitutional complaints Eyes: Eyes: Reports as per HPI and Denies no additional eye complaints ENT: Denies system reviewed and no additional complaints, except as documented and Reports as per HPI Cardiovascular: Cardiovascular: Reports as per HPI, Reports no additional cardiovascular complaints, Denies acrocyanosis, Denies cool extremities, Denies chest pain, Reports leg edema, Denies lightheadedness, Denies palpitations and Reports dyspnea Respiratory: Respiratory: Reports as per HPI, Denies no additional respiratory complaints and Reports dyspnea Gastrointestinal: Gastrointestinal: Reports as per HPI and Denies no additional gastrointestinal complaints Genitourinary: Genitourinary: Reports no additional male genitourinary complaints and Reports as per HPI Musculoskeletal: Musculoskeletal: Reports no additional musculoskeletal complaints and Reports as per HPI Integumentary/Breasts: Skin/Breast: Reports system reviewed and no additional complaints, except as docu Neurologic: Reports system reviewed and no additional complaints, except as documented and Reports as per HPI Psychiatric: Psychiatric: Reports no additional psychiatric complaints and Reports as per HPI Endocrine: Endocrine: Reports no additional endocrine complaints, Reports as per HPI and Denies palpitations Hematologic/Lymphatic: Hematologic/Lymphatic: Reports no additional hematologic/lymphatic complaints and Reports as per HPI Allergic/Immunologic: Allergic/Immunologic: Reports no additional allergic/immunologic complaints and Reports as per HPI [facility] Past Medical History Medical History Elevated serum creatinine Biventricular ICD (implantable cardioverter-defibrillator) in place Syncope RBBB PVD (peripheral vascular disease) Hx of thyroid nodule GERD (gastroesophageal reflux disease) CAD (coronary artery disease) BPH (benign prostatic hyperplasia) Asthma Atrial fibrillation Family History Family History Mother Breast cancer Father Heart attack Brother Stomach cancer Brother Heart disease Surgical History Surgical History Hx of CABG Hx of cardiac cath H/O right knee surgery H/O heart surgery Social History Social History Household Members: None Housing: House Do you presently have visiting nurse or other home services: No Alcohol intake: former Comment: pt refusing red socks, alarms, and camera Patient Tobacco Use Status: Former Tobacco user Years Smoked: 25 +/- Smoked in Last 30 Days: No Use of substances other than those prescribed or required for medical reasons: No Currently Displaying Signs/Symptoms of Drug Intoxication Withdrawal: No Any prior treatment program specific to substance use: No Have you been hit, kicked, punched, or otherwise hurt by someone within the past year? If so, by whom?: No Do you feel safe in your current relationship?: No Current Relationship Is there a partner from a previous relationship who is making you feel unsafe now?: No Are you made to feel afraid or neglected: No Shinto Healthcare Practices: [place] Advance Directives: Yes Advance Directives on File: Yes Advance Directives Date on File: 10/31/23 Do you have a plan to hurt others: No Plan Recently lost weight without trying: No How much weight loss: Not applicable Eating poorly because of decreased appetite: No Nutrition screen score: 0 Nutrition Risks: No Nutritional Risk Poor oral hygiene: No service: No Meds Allergies Allergy/AdvReac Type Severity Reaction Status Date / Time doxycycline Allergy Unknown Unknown Verified 02/18/24 14:29 narcotics AdvReac Nausea and Uncoded 02/18/24 14:29 Vomiting, hypotensive Active Medications: Current Medications Acetaminophen (Acetaminophen 325 Mg Tablet) 650 mg PO Q6H PRN PRN Reason: Pain, Mild (Pain Scale 1-3), fever or headache Allopurinol (Allopurinol 100 Mg Tablet) 100 mg PO DAILY@0900 [facility] Last Admin: 02/19/24 08:23 Dose: 100 mg Amiodarone HCl (Amiodarone Hcl 200 Mg Tablet) 200 mg PO DAILY@1700 [facility] Atorvastatin Calcium (Atorvastatin Calcium 40 Mg Tablet) 40 mg PO BEDTIME [facility] Benzonatate (Benzonatate 100 Mg Capsule) 100 mg PO TID PRN PRN Reason: Cough Calcium Carbonate (Calcium Carbonate 750 Mg Tab.Chew) 750 mg PO Q4H PRN PRN Reason: Heartburn Cilostazol (Cilostazol 50 Mg Tablet) 50 mg PO BID [facility] Last Admin: 02/19/24 08:23 Dose: 50 mg Empagliflozin (Empagliflozin 10 Mg Tablet) 10 mg PO DAILY [facility] Last Admin: 02/19/24 08:22 Dose: 10 mg Ferrous Sulfate (Ferrous Sulfate 324 Mg Tablet.Dr) 324 mg PO DAILY@0600 [facility] Last Admin: 02/19/24 05:49 Dose: 324 mg Finasteride (Finasteride 5 Mg Tablet) 5 mg PO DAILY@0900 [facility] Last Admin: 02/19/24 08:23 Dose: 5 mg Gabapentin (Gabapentin 600 Mg Tablet) 600 mg PO BEDTIME [facility] Bumetanide 25 mg/ IV (Miscellaneous Supplies) 100 mls @ 2 mls/hr IVCONT .Q24H [facility] Last Admin: 02/18/24 16:12 Dose: 1 mg/hr, 4 mls/hr Magnesium Hydroxide (Milk Of Magnesia 30 Ml Oral.Susp) 30 ml PO DAILY PRN PRN Reason: Constipation Magnesium Oxide (Magnesium Oxide 400 Mg Tablet) 400 mg PO BID [facility] Last Admin: 02/19/24 08:23 Dose: 400 mg Melatonin (Melatonin 3 Mg Tablet) 6 mg PO BEDTIME PRN PRN Reason: Insomnia Omeprazole (Omeprazole 20 Mg Capsule.) 20 mg PO BID@0630,1630 [facility] Last Admin: 02/19/24 05:49 Dose: 20 mg Rivaroxaban (Rivaroxaban 15 Mg Tablet) 15 mg PO DAILY@1700 [facility] Sodium Chloride (0.9 % Sodium Chloride Flush 3 Ml Syringe) 3 ml IVFLUSH QSHIFT [facility] Last Admin: 02/19/24 08:23 Dose: 3 ml Home Medications ?Medication ?Instructions ?Recorded ?Confirmed ?Last Taken ?Type cilostazol 50 mg tablet 50 mg PO BID 06/18/21 02/18/24 02/18/24 History finasteride 5 mg tablet 5 mg PO DAILY@0906/18/21 02/18/24 02/18/24 History pantoprazole 40 mg tablet,delayed 40 mg PO BID@0630,1630 06/18/21 02/18/24 02/18/24 History release allopurinol 100 mg tablet 100 mg PO DAILY@0910/27/23 02/18/24 02/18/24 History atorvastatin 40 mg tablet 40 mg PO BEDTIME 10/27/23 02/18/24 02/18/24 History amiodarone 200 mg tablet 200 mg PO DAILY@17012/25/23 02/18/24 02/18/24 History ferrous sulfate 325 mg (65 mg 325 mg PO DAILY@0602/09/24 02/18/24 02/18/24 History iron) tablet,delayed release bumetanide 1 mg tablet 4 mg PO DAILY Edema 02/18/24 02/18/24 02/18/24 History rivaroxaban 15 mg tablet (Xarelto) 15 mg PO DAILY@17002/18/24 02/18/24 02/18/24 History Physical Exam Vital Signs: Vital Signs: Last Vital Signs Temp 97.7 F 02/19/24 07:47 Pulse 60 02/19/24 07:47 Resp 20 02/19/24 07:47 BP 122/56 L 02/19/24 07:47 Pulse Ox 96 02/19/24 07:47 O2 Del Method Room Air 02/19/24 07:47 BMI result Body Mass Index 34.0 Const: General: comfortable and no acute distress Orientation/consciousness: patient oriented x3 HEENT: Other: Unremarkable Head: Yes normal to inspection Neck: Neck: Yes normal visual inspection Chest: Chest palpation & inspection: normal inspection of the chest Resp: Auscultation: crackles Cardio: Palpation: normal PMI Heart sounds: S1 normal heart sound present, S2 normal heart sound present, no gallops, no murmurs and no rubs GI: Palpation (GI): Soft to palpation Back/Spine/Pelvis: Other: unremarkable Skin: General skin exam: no rashes or lesions noted Neuro: General: patient oriented x3 Extrem: Other: 2+ swelliing General: Yes normal to inspection Psych: Mental Status: mental status grossly normal Objective Labs and Meds 02/19/24 06:54 02/19/24 06:54 Lab results: Laboratory Results - last 24 hr 02/18/24 02/18/24 02/19/24 15:02 17:04 06:54 WBC 9.6 7.9 RBC 3.61 L 3.28 L Hgb 9.1 L 8.4 L Hct 29.5 L 26.6 L MCV 81.7 81.1 MCH 25.2 L 25.6 L MCHC 30.8 L 31.6 RDW 20.2 H 20.0 H Plt Count 333 288 MPV 9.8 9.8 Immature Gran % (Auto) 0.8 H Neut % (Auto) 74.9 H Lymph % (Auto) 11.6 L [place] % (Auto) 9.3 Eos % (Auto) 3.0 Baso % (Auto) 0.4 Lymph # (Auto) 1.1 L [place] # (Auto) 0.9 Eos # (Auto) 0.3 Baso # (Auto) 0.0 Abs Immat Gran (auto) 0.08 H Absolute Neuts (auto) 7.2 Absolute Nucleated RBC 0.000 0.000 Nucleated RBC % (auto) 0.0 0.0 PT 24.9 H D INR 2.0 H APTT 40.7 H Sodium 138 Potassium 4.1 Chloride 100 Carbon Dioxide 27 Anion Gap 15 BUN 45 H 42 H Creatinine 2.08 H 1.90 H Estim Creat Clear Calc 28.0 30.8 Estimated GFR 31 34 Random Glucose 92 100 Calcium 8.6 8.4 Magnesium 2.1 2.1 Total Bilirubin 1.2 H Direct Bilirubin 0.7 H AST 33 ALT 14 Alkaline Phosphatase 123 H Troponin I High Sens 203.6 H* D 207.5 H* B-Natriuretic Peptide 2625 H Total Protein 6.3 L Albumin 3.7 ECG Interpretation: EKG shows overall low-voltage complexes. Dual-chamber pacing. Biventricular pacing. Overall, similar to prior. 72Min. Imaging Radiologist's impression: Impressions Chest X-Ray 02/18/24 14:31 IMPRESSION: Small right pleural effusion. Mild pulmonary venous congestion. No interstitial edema. Electronically signed by: Wily Hull MD 02/18/2024 04:11 PM EDT Assessment and Plan (1) Acute on chronic combined systolic and diastolic CHF (congestive heart failure): Status: Acute (2) Elevated troponin: Status: Acute (3) Ischemic cardiomyopathy: Status: Acute (4) History of torsades de pointes: Status: Acute (5) Atherosclerotic cardiovascular disease: Status: Acute (6) Atrial fibrillation: Status: Acute Plan Per last echocardiogram in July, LVEF 46%. Basal inferior/inferoseptal hypokinesis. Moderately dilated left atrium. We will plan on repeating the study. With regard diuretics, he was on Bumex at home. He is currently on a drip. We can continue it at the current rate. We can add a small dose of metolazone 2.5 mg for additional effects. Will need to monitor the kidney function. Correct electrolytes. With regard to guideline based medical therapy, he is only on a small dose of beta-blockers as he has not been able tolerate Entresto or anything else because of low blood pressure. He remains on Jardiance. Otherwise, there is a slight increase in troponins which is related to his heart failure. Do not believe he is having an acute coronary syndrome. During last cardiac catheterization around May, he had patent grafts. Severe [place] vessel disease. Otherwise, no arrhythmias noted on telemetry and we can monitor. He remains on amiodarone/small dose of beta-blockers. We will follow with you. Discussed with hospitalist. Procedures Date of Service Date of Service: 02/19/24
[2024-02-19 09:00] LABS: Anion Gap 15 (12-20); Carbon Dioxide 28 mmol/L (22-29); Chloride 98 mmol/L (96-108); Potassium 3.2 mmol/L (3.3-5.1); Sodium 138 mmol/L (135-145)
[2024-02-19 11:23] VITALS: BP 121/58; PULSE 74; RESP 20; TEMP 36.2; O2SAT 95
[2024-02-19] MEDS: Spironolactone 25 MG TABLET PO (12:56)
[2024-02-19] MEDS: Potassium Chloride Packet 20 MEQ PACKET 40 MEQ PO ×2 (12:57→16:03)
[2024-02-19] MEDS: Bumetanide 25 MG in Container,Empty 0 ML IVCONT (12:58)
[2024-02-19] MEDS: metOLazone 2.5 MG TABLET PO (13:01)
--- NOTE | 2024-02-19 14:34 | P.PNIM_ITS ---
Subjective Subjective Date of Service: 02/19/24 Interval History: seen and evalluated overnight feels better overall made 2L overnight no other events Review of Systems Review of Systems: Yes all other systems are reviewed and are negative Physical Exam 2 Vital Signs: Vital Signs: Last Vital Signs Temp 97.2 F 02/19/24 11:23 Pulse 74 02/19/24 11:23 Resp 20 02/19/24 11:23 BP 121/58 L 02/19/24 11:23 Pulse Ox 95 02/19/24 11:23 O2 Del Method Room Air 02/19/24 11:23 BMI result Body Mass Index 34.0 Const: Other: Constitutional : Awake, interactive, not in distress Neck : Normal inspection, Supple Cardiovascular : RRR, no JVP, +2 bilateral lower extremity edema Respiratory : good bilateral air entry, basal fine crackles, wheezes or rhonchi Gastrointestinal: soft, lax, Normal bowel sounds, Non tender Skin : Warm, Dry Neurological : Alert & oriented x3, No focal deficit Objective Data Active Medications Acetaminophen (Acetaminophen 325 Mg Tablet) 650 mg PO Q6H PRN PRN Reason: Pain, Mild (Pain Scale 1-3), fever or headache Allopurinol (Allopurinol 100 Mg Tablet) 100 mg PO DAILY@0900 [facility] Last Admin: 02/19/24 08:23 Dose: 100 mg Documented By: [place] Amiodarone HCl (Amiodarone Hcl 200 Mg Tablet) 200 mg PO DAILY@1700 [facility] Atorvastatin Calcium (Atorvastatin Calcium 40 Mg Tablet) 40 mg PO BEDTIME [facility] Benzonatate (Benzonatate 100 Mg Capsule) 100 mg PO TID PRN PRN Reason: Cough Calcium Carbonate (Calcium Carbonate 750 Mg Tab.Chew) 750 mg PO Q4H PRN PRN Reason: Heartburn Cilostazol (Cilostazol 50 Mg Tablet) 50 mg PO BID [facility] Last Admin: 02/19/24 08:23 Dose: 50 mg Documented By: [place] Empagliflozin (Empagliflozin 10 Mg Tablet) 10 mg PO DAILY [facility] Last Admin: 02/19/24 08:22 Dose: 10 mg Documented By: PH[place]EN[place] Ferrous Sulfate (Ferrous Sulfate 324 Mg Tablet.) 324 mg PO DAILY@0600 [facility] Last Admin: 02/19/24 05:49 Dose: 324 mg Documented By: DONNIE Finasteride (Finasteride 5 Mg Tablet) 5 mg PO DAILY@0900 [facility] Last Admin: 02/19/24 08:23 Dose: 5 mg Documented By: [place] Gabapentin (Gabapentin 600 Mg Tablet) 600 mg PO BEDTIME [facility] Bumetanide 25 mg/ IV (Miscellaneous Supplies) 100 mls @ 2 mls/hr IVCONT .Q24H [facility] Last Admin: 02/19/24 12:58 Dose: 2 mls/hr Documented By: PH[place]EN[place] Magnesium Hydroxide (Milk Of Magnesia 30 Ml Oral.Susp) 30 ml PO DAILY PRN PRN Reason: Constipation Magnesium Oxide (Magnesium Oxide 400 Mg Tablet) 400 mg PO BID [facility] Last Admin: 02/19/24 08:23 Dose: 400 mg Documented By: [place] Melatonin (Melatonin 3 Mg Tablet) 6 mg PO BEDTIME PRN PRN Reason: Insomnia Metolazone (Metolazone 2.5 Mg Tablet) 2.5 mg PO DAILY [facility] Last Admin: 02/19/24 13:01 Dose: 2.5 mg Documented By: [place] Omeprazole (Omeprazole 20 Mg Capsule.Dr) 20 mg PO BID@0630,1630 [facility] Last Admin: 02/19/24 05:49 Dose: 20 mg Documented By: DONNIE Rivaroxaban (Rivaroxaban 15 Mg Tablet) 15 mg PO DAILY@1700 [facility] Sodium Chloride (0.9 % Sodium Chloride Flush 3 Ml Syringe) 3 ml IVFLUSH QSHIFT [facility] Last Admin: 02/19/24 08:23 Dose: 3 ml Documented By: [place] Spironolactone (Spironolactone 25 Mg Tablet) 25 mg PO DAILY [facility]; Protocol Last Admin: 02/19/24 12:56 Dose: 25 mg Documented By: PH[place]EN[place] Labs 02/19/24 06:54 02/19/24 06:54 Labs: Laboratory Results - last 24 hr 02/18/24 02/18/24 02/19/24 15:02 17:04 06:54 MCV 81.7 81.1 MCH 25.2 L 25.6 L MCHC 30.8 L 31.6 RDW 20.2 H 20.0 H Plt Count 333 288 MPV 9.8 9.8 Immature Gran % (Auto) 0.8 H Neut % (Auto) 74.9 H Lymph % (Auto) 11.6 L [place] % (Auto) 9.3 Eos % (Auto) 3.0 Baso % (Auto) 0.4 Lymph # (Auto) 1.1 L [place] # (Auto) 0.9 Eos # (Auto) 0.3 Baso # (Auto) 0.0 Abs Immat Gran (auto) 0.08 H Absolute Neuts (auto) 7.2 Absolute Nucleated RBC 0.000 0.000 Nucleated RBC % (auto) 0.0 0.0 PT 24.9 H D INR 2.0 H APTT 40.7 H Anion Gap 15 15 Estim Creat Clear Calc 28.0 30.8 Estimated GFR 31 34 Random Glucose 92 100 Calcium 8.6 8.4 Magnesium 2.1 2.1 Total Bilirubin 1.2 H Direct Bilirubin 0.7 H AST 33 ALT 14 Alkaline Phosphatase 123 H Troponin I High Sens 203.6 H* D 207.5 H* B-Natriuretic Peptide 2625 H Total Protein 6.3 L Albumin 3.7 Assessment and Plan (1) Acute on chronic combined systolic and diastolic CHF (congestive heart failure): Status: Acute (2) Elevated troponin: Status: Acute (3) Elevated brain natriuretic peptide (BNP) level: Status: Acute Plan Pt is an 83-year-old male with a PMH significant for?CAD, cardiac arrest in Mar 2023 s/p biventricular ICD in place, paroxysmal AFib on Xarelto, peripheral vascular disease, HFrEF, CKD 3, unspecified asthma, GERD, gout, and KEVIN on nasal CPAP who presents to the ED with?increasing lower leg edema and SOB. Pt will be admitted to the hospital for acute HFrEF exacerbation nonresponsive to outpatient p.o. medications. Acute HFrEF exacerbation Negative balance overnight Continue Bumex drip at 0.5 mg/hr per cardiology Follow lytes, I/O, kidney function Low-salt diet, daily weights Continue Jardiance, metoprolol Cardiology input appreciated, add Spironolactone and Metolazone Monitor on telemetry Elevated troponins Initial troponin 203.6 with repeat flat at 207.5 Patient asymptomatic, EKG nonischemic Likely type 2 in the setting of increased demand CKD 3 Creatinine 2 , improved from previous of 2.21 on 02/08 Follow kidney function closely while on diuretics Anemia of chronic disease H&H 9.1/29.5, stable, around baseline Continue iron supplementation Follow CBC CAD Continue statin, aspirin Paroxysmal AFib Continue metoprolol, Xarelto, amiodorone GERD PPI Full Code DVT Prophylaxis: On Xerelto Pt will require a hospitalization overnight for treatment of?acute HFrEF exacerbation nonresponsive to outpatient p.o. medications. He will need inpatient treatment with IV diuretics that require close monitoring of kidney function and electrolyte levels. Quality Stroke Does the patient have a stroke diagnosis?: No VTE Prior VTE?: No VTE Risk Level:: Medical - moderate - high VTE Device Contraindication: Treatment Not Indicated VTE Drug Contraindication: N/A - Med Ordered
--- NOTE | 2024-02-19 14:51 | MHC.CM.PN ---
IMM 02/19/24, Pt lives alone, he does not have home health services. For DME, he has a CPAP machine, and a shower chair. HCP is on file and confirmed, names his two daughters, Phoebe and Mckenna. PCP confirmed: Dr Eric. Dtr to transport home [place]. Pt said he can see where he may need home care services in the future. He agreed to speak with rep from [facility], task submitted. DCP: home with services. CM to follow and assist with DC plan.
[2024-02-19 15:23] VITALS: BP 128/61; PULSE 74; RESP 18; TEMP 36.1; O2SAT 99
[2024-02-19] MEDS: Amiodarone HCL 200 MG TABLET PO (16:03)
[2024-02-19] MEDS: Rivaroxaban 15 MG TABLET PO (16:04)
[2024-02-19 17:39] LABS: Anion Gap 18 (12-20); Blood Urea Nitrogen 36 mg/dL (9-16); Calcium 8.5 mg/dL (8.4-10.2); Carbon Dioxide 23 mmol/L (22-29); Chloride 101 mmol/L (96-108); Creatinine Clr Calc Pharmacy 38.5; Estimated Glomerular Filt Rate 44; Glucose Random 102 mg/dL (60-115); Potassium 3.4 mmol/L (3.3-5.1); Sodium 139 mmol/L (135-145)
[2024-02-19 20:00] VITALS: BP 110/54; PULSE 60; RESP 18; TEMP 36.7; O2SAT 98
[2024-02-19] MEDS: Gabapentin 600 MG TABLET PO (20:14)
[2024-02-19] MEDS: Atorvastatin Calcium 40 MG TABLET PO (20:14)
[2024-02-19 22:00] VITALS: PULSE 69; RESP 18; O2SAT 95
[2024-02-20] VITALS (7 sets, daily range): BP systolic 103–127; BP diastolic 55–65; PULSE 57–66; RESP 12–20; TEMP 36.2–36.7; O2SAT 95–98; BMI 32.5
[2024-02-20] MEDS: Omeprazole 20 MG CAPSULE.DR PO ×2 (05:24→16:47)
[2024-02-20] MEDS: Ferrous Sulfate 324 MG TABLET.DR PO (05:24)
[2024-02-20 06:39] LABS: Anion Gap 18 (12-20); Blood Urea Nitrogen 34 mg/dL (9-16); Calcium 9.2 mg/dL (8.4-10.2); Carbon Dioxide 27 mmol/L (22-29); Chloride 98 mmol/L (96-108); Creatinine Clr Calc Pharmacy 34.7; Estimated Glomerular Filt Rate 40; Glucose Random 104 mg/dL (60-115); Potassium 3.4 mmol/L (3.3-5.1); Sodium 140 mmol/L (135-145)
[2024-02-20 06:44] LABS: Hematocrit 32.8 % (42.0-52.0); Hemoglobin 10.2 g/dl (14.0-18.0); Mean Corpuscular HGB Conc 31.1 g/dl (31.0-36.0); Mean Corpuscular Hemoglobin 25.3 pg (27.0-33.0); Mean Corpuscular Volume 81.4 fL (80.0-98.0); Mean Platelet Volume 10.4 fL (9.4-12.4); Platelet Count 308 X10*3/uL (160-400); Red Blood Count 4.03 X10*6/uL (4.60-5.80); Red Cell Distribution Width 21.1 % (11.0-16.0)
[2024-02-20 07:08] LABS: B Type Natriuretic Peptide 1935 pg/mL (<100)
[2024-02-20] MEDS: Empagliflozin 10 MG TABLET PO (09:22)
[2024-02-20] MEDS: Spironolactone 25 MG TABLET PO (09:22)
[2024-02-20] MEDS: cilostazoL 50 MG TABLET PO ×2 (09:22→21:26)
[2024-02-20] MEDS: Magnesium Oxide 400 MG TABLET PO ×2 (09:22→21:26)
[2024-02-20] MEDS: metOLazone 2.5 MG TABLET PO (09:23)
[2024-02-20] MEDS: Finasteride 5 MG TABLET PO (09:23)
[2024-02-20] MEDS: allopurinoL 100 MG TABLET PO (09:23)
[2024-02-20] MEDS: 0.9 % Sodium Chloride Flush 3 ML SYRINGE IVFLUSH ×3 (09:23→21:26)
--- NOTE | 2024-02-20 10:04 | P.PNCA_ITS ---
Subjective Subjective Date of Service: 02/20/24 Interval history: He states he is diuresing. Feeling better. Review of Systems Review of Systems Yes all other systems are reviewed and are negative Constitutional: Reports as per HPI and Reports no additional constitutional complaints Eyes: Reports as per HPI and Denies no additional eye complaints Denies system reviewed and no additional complaints, except as documented and Reports as per HPI Cardiovascular: Reports as per HPI, Reports no additional cardiovascular complaints, Denies acrocyanosis, Denies cool extremities, Denies chest pain, Reports leg edema, Denies lightheadedness, Denies palpitations and Reports dyspnea Respiratory: Reports as per HPI, Denies no additional respiratory complaints and Reports dyspnea Gastrointestinal: Reports as per HPI and Denies no additional gastrointestinal complaints Genitourinary: Reports no additional male genitourinary complaints and Reports as per HPI Musculoskeletal: Reports no additional musculoskeletal complaints and Reports as per HPI Skin/Breast: Reports system reviewed and no additional complaints, except as docu Reports system reviewed and no additional complaints, except as documented and Reports as per HPI Psychiatric: Reports no additional psychiatric complaints and Reports as per HPI Endocrine: Reports no additional endocrine complaints, Reports as per HPI and Denies palpitations Hematologic/Lymphatic: Reports no additional hematologic/lymphatic complaints and Reports as per HPI Allergic/Immunologic: Reports no additional allergic/immunologic complaints and Reports as per HPI Physical Exam Vital Signs: Last Vital Signs Temp 97.4 F 02/20/24 07:28 Pulse 60 02/20/24 07:28 Resp 18 02/20/24 07:28 BP 116/56 L 02/20/24 07:28 Pulse Ox 98 02/20/24 07:28 O2 Del Method Room Air 02/20/24 07:28 BMI result Body Mass Index 32.5 Const General: comfortable and no acute distress Orientation/consciousness: patient oriented x3 HEENT Other: Unremarkable Head: Yes normal to inspection Neck Neck: Yes normal visual inspection Chest Chest palpation & inspection: normal inspection of the chest Resp Auscultation: crackles Cardio Palpation: normal PMI Heart sounds: S1 normal heart sound present, S2 normal heart sound present, no gallops, no murmurs and no rubs GI Palpation (GI): Soft to palpation Back/Spine/Pelvis Other: unremarkable Skin General skin exam: no rashes or lesions noted Neuro General: patient oriented x3 Extrem Other: 2+ swelliing General: Yes normal to inspection Psych Mental Status: mental status grossly normal Objective Labs and Meds 02/20/24 05:47 02/20/24 05:47 Lab results: Laboratory Results - last 24 hr 02/19/24 02/20/24 17:01 05:47 WBC 9.0 RBC 4.03 L D Hgb 10.2 L D Hct 32.8 L D MCV 81.4 MCH 25.3 L MCHC 31.1 RDW 21.1 H Plt Count 308 MPV 10.4 Absolute Nucleated RBC 0.000 Nucleated RBC % (auto) 0.0 Sodium 139 140 Potassium 3.4 3.4 Chloride 101 98 Carbon Dioxide 23 27 Anion Gap 18 18 BUN 36 H 34 H Creatinine 1.52 H 1.65 H Estim Creat Clear Calc 38.5 34.7 Estimated GFR 44 40 Random Glucose 102 104 Calcium 8.5 9.2 D B-Natriuretic Peptide 1935 H Progress Note: A&P Assessment and plan (1) Acute on chronic combined systolic and diastolic CHF (congestive heart failure): Status: Acute (2) Elevated troponin: Status: Acute (3) Ischemic cardiomyopathy: Status: Acute (4) History of torsades de pointes: Status: Acute (5) Atherosclerotic cardiovascular disease: Status: Acute (6) Atrial fibrillation: Status: Acute Plan Echocardiogram as today with LVEF of 46%. Basal inferior akinesis. [id number] mitral regurgitation, mild aortic regurgitation and mild tricuspid regurgitation with mild pulmonary hypertension. IVC appeared dilated. Clinically, he is still volume overloaded. Per input output data, he is -5 L Continue Bumex drip. Additional dose of metolazone. Also on spironolactone. Renal function seems stable. Otherwise, continue his home medical regimen including beta-blockers, Jardiance. In the past, due to low blood pressure, could not tolerate Entresto. Slight troponin increase is related to congestive heart failure. Do not believe it is acute coronary syndrome. During last cardiac catheterization around May, he had patent grafts. Severe [place] vessel disease. Otherwise, no arrhythmias noted on telemetry and we can monitor. He remains on amiodarone. We will follow with you. Discussed with hospitalist. Time Spent With Patient Time: Total time managing care of this patient today ____ minutes. Progress Note: Quality Stroke Does the patient have a stroke diagnosis?: No Procedures Date of Service Date of Service: 02/20/24
[2024-02-20] MEDS: Bumetanide 25 MG in Container,Empty 0 ML IVCONT (12:15)
--- NOTE | 2024-02-20 15:04 | MHC.CM.PN ---
Per rounds and record review, pt has not been medically cleared for DC, he requires ongoing treatment for acute HFrEF exacerbation. Anticipate pt. will DC with home care services from [facility] [place], personal care, and home making services.
--- NOTE | 2024-02-20 15:05 | HO.PM.IMPN ---
Subjective Subjective Date of Service: 02/20/24 Interval History: seen and evalluated overnight feels better overall More than 3L negative balance since admission no other events Review of Systems Review of Systems: Yes all other systems are reviewed and are negative Physical Exam Vital Signs: Vital Signs: Last Vital Signs Temp 97.8 F 02/20/24 11:07 Pulse 60 02/20/24 11:07 Resp 18 02/20/24 11:07 BP 103/65 02/20/24 11:07 Pulse Ox 96 02/20/24 11:07 O2 Del Method Room Air 02/20/24 11:07 BMI result Body Mass Index 32.5 Const: Other: Constitutional : Awake, interactive, not in distress Neck : Normal inspection, Supple Cardiovascular : RRR, no JVP, +1 bilateral lower extremity edema Respiratory : good bilateral air entry, basal fine crackles, wheezes or rhonchi Gastrointestinal: soft, lax, Normal bowel sounds, Non tender Skin : Warm, Dry Neurological : Alert & oriented x3, No focal deficit Objective Data Active Medications Acetaminophen (Acetaminophen 325 Mg Tablet) 650 mg PO Q6H PRN PRN Reason: Pain, Mild (Pain Scale 1-3), fever or headache Allopurinol (Allopurinol 100 Mg Tablet) 100 mg PO DAILY@0900 [facility] Last Admin: 02/20/24 09:23 Dose: 100 mg Documented By: PHOENIX Amiodarone HCl (Amiodarone Hcl 200 Mg Tablet) 200 mg PO DAILY@1700 [facility] Last Admin: 02/19/24 16:03 Dose: 200 mg Documented By: PHOENIX Atorvastatin Calcium (Atorvastatin Calcium 40 Mg Tablet) 40 mg PO BEDTIME [facility] Last Admin: 02/19/24 20:14 Dose: 40 mg Documented By: DONNIE Benzonatate (Benzonatate 100 Mg Capsule) 100 mg PO TID PRN PRN Reason: Cough Calcium Carbonate (Calcium Carbonate 750 Mg Tab.Chew) 750 mg PO Q4H PRN PRN Reason: Heartburn Cilostazol (Cilostazol 50 Mg Tablet) 50 mg PO BID [facility] Last Admin: 02/20/24 09:22 Dose: 50 mg Documented By: PHOENIX Empagliflozin (Empagliflozin 10 Mg Tablet) 10 mg PO DAILY [facility] Last Admin: 02/20/24 09:22 Dose: 10 mg Documented By: PHOENIX Ferrous Sulfate (Ferrous Sulfate 324 Mg Tablet.) 324 mg PO DAILY@0600 [facility] Last Admin: 02/20/24 05:24 Dose: 324 mg Documented By: ELIANA Finasteride (Finasteride 5 Mg Tablet) 5 mg PO DAILY@0900 [facility] Last Admin: 02/20/24 09:23 Dose: 5 mg Documented By: PHOENIX Gabapentin (Gabapentin 600 Mg Tablet) 600 mg PO BEDTIME [facility] Last Admin: 02/19/24 20:14 Dose: 600 mg Documented By: DONNIE Bumetanide 25 mg/ IV (Miscellaneous Supplies) 100 mls @ 2 mls/hr IVCONT .Q24H [facility] Last Admin: 02/20/24 12:15 Dose: 2 mls/hr Documented By: PHOENIX Magnesium Hydroxide (Milk Of Magnesia 30 Ml Oral.Susp) 30 ml PO DAILY PRN PRN Reason: Constipation Magnesium Oxide (Magnesium Oxide 400 Mg Tablet) 400 mg PO BID [facility] Last Admin: 02/20/24 09:22 Dose: 400 mg Documented By: PHOENIX Melatonin (Melatonin 3 Mg Tablet) 6 mg PO BEDTIME PRN PRN Reason: Insomnia Metolazone (Metolazone 2.5 Mg Tablet) 2.5 mg PO DAILY [facility] Last Admin: 02/20/24 09:23 Dose: 2.5 mg Documented By: PHOENIX Omeprazole (Omeprazole 20 Mg Capsule.) 20 mg PO BID@0630,1630 [facility] Last Admin: 02/20/24 05:24 Dose: 20 mg Documented By: ELIANA Rivaroxaban (Rivaroxaban 15 Mg Tablet) 15 mg PO DAILY@1700 [facility] Last Admin: 02/19/24 16:04 Dose: 15 mg Documented By: PHOENIX Sodium Chloride (0.9 % Sodium Chloride Flush 3 Ml Syringe) 3 ml IVFLUSH QSHIFT [facility] Last Admin: 02/20/24 09:23 Dose: 3 ml Documented By: PHOENIX Spironolactone (Spironolactone 25 Mg Tablet) 25 mg PO DAILY [facility]; Protocol Last Admin: 02/20/24 09:22 Dose: 25 mg Documented By: PHOENIX Labs 02/20/24 05:47 02/20/24 05:47 Labs: Laboratory Results - last 24 hr 02/19/24 02/20/24 17:01 05:47 MCV 81.4 MCH 25.3 L MCHC 31.1 RDW 21.1 H Plt Count 308 MPV 10.4 Absolute Nucleated RBC 0.000 Nucleated RBC % (auto) 0.0 Anion Gap 18 18 Estim Creat Clear Calc 38.5 34.7 Estimated GFR 44 40 Random Glucose 102 104 Calcium 8.5 9.2 D B-Natriuretic Peptide 1935 H Assessment and Plan (1) Acute on chronic combined systolic and diastolic CHF (congestive heart failure): Status: Acute Plan Pt is an 83-year-old male with a PMH significant for?CAD, cardiac arrest in Mar 2023 s/p biventricular ICD in place, paroxysmal AFib on Xarelto, peripheral vascular disease, HFrEF, CKD 3, unspecified asthma, GERD, gout, and KEVIN on nasal CPAP who presents to the ED with?increasing lower leg edema and SOB. Pt will be admitted to the hospital for acute HFrEF exacerbation nonresponsive to outpatient p.o. medications. Acute HFrEF exacerbation > 3L Negative balance overnight Metolazone 2.5 mg Continue Bumex drip at 0.5 mg/hr per cardiology Follow lytes, I/O, kidney function Low-salt diet, daily weights Continue Jardiance, metoprolol Cardiology input appreciated, add Spironolactone and Metolazone Monitor on telemetry Elevated troponins Initial troponin 203.6 with repeat flat at 207.5 Patient asymptomatic, EKG nonischemic Likely type 2 in the setting of increased demand CKD 3 Creatinine 2 , improved from previous of 2.21 on 02/08 Follow kidney function closely while on diuretics Anemia of chronic disease H&H 9.1/29.5, stable, around baseline Continue iron supplementation Follow CBC CAD Continue statin, aspirin Paroxysmal AFib Continue metoprolol, Xarelto, amiodorone GERD PPI Patient requesting Flu shot. to give it while he is inpatient. Full Code DVT Prophylaxis: On Xarelto Pt will require a hospitalization overnight for treatment of?acute HFrEF exacerbation nonresponsive to outpatient p.o. medications. He will need inpatient treatment with IV diuretics that require close monitoring of kidney function and electrolyte levels. Quality Stroke Does the patient have a stroke diagnosis?: No VTE Prior VTE?: No VTE Risk Level:: Medical - moderate - high VTE Device Contraindication: Treatment Not Indicated VTE Drug Contraindication: N/A - Med Ordered
[2024-02-20] MEDS: Amiodarone HCL 200 MG TABLET PO (16:47)
[2024-02-20] MEDS: Flu Vacc TS2024-25(6mos up)/PF 0.5 ML SYRINGE IM (16:47)
[2024-02-20] MEDS: Rivaroxaban 15 MG TABLET PO (16:47)
[2024-02-20] MEDS: Gabapentin 600 MG TABLET PO (21:26)
[2024-02-20] MEDS: Atorvastatin Calcium 40 MG TABLET PO (21:26)
[2024-02-21] VITALS: BP 123/60; PULSE 67; RESP 20; TEMP 36.1; O2SAT 97
[2024-02-21 02:57] VITALS: BP 111/58; PULSE 67; RESP 18; TEMP 36.6; O2SAT 97
[2024-02-21] MEDS: Ferrous Sulfate 324 MG TABLET.DR PO (05:55)
[2024-02-21] MEDS: Omeprazole 20 MG CAPSULE.DR PO (05:55)
[2024-02-21 06:00] VITALS: BMI 30.8
[2024-02-21 07:47] LABS: B Type Natriuretic Peptide 1329 pg/mL (<100)
[2024-02-21 07:55] LABS: Anion Gap 20 (12-20); Blood Urea Nitrogen 34 mg/dL (9-16); Calcium 9.7 mg/dL (8.4-10.2); Carbon Dioxide 34 mmol/L (22-29); Chloride 88 mmol/L (96-108); Creatinine Clr Calc Pharmacy 31.8; Estimated Glomerular Filt Rate 38; Glucose Random 121 mg/dL (60-115); Potassium 3.1 mmol/L (3.3-5.1); Sodium 139 mmol/L (135-145)
[2024-02-21 08:00] VITALS: BP 108/53; PULSE 64; RESP 18; TEMP 36.4; O2SAT 96
[2024-02-21] MEDS: Magnesium Oxide 400 MG TABLET PO (09:23)
[2024-02-21] MEDS: Spironolactone 25 MG TABLET PO (09:23)
[2024-02-21] MEDS: Potassium Chloride ER 20 MEQ TAB.ER.PRT 40 MEQ PO (09:24)
[2024-02-21] MEDS: Empagliflozin 10 MG TABLET PO (09:24)
[2024-02-21] MEDS: allopurinoL 100 MG TABLET PO (09:24)
[2024-02-21] MEDS: metOLazone 2.5 MG TABLET PO (09:24)
[2024-02-21] MEDS: Finasteride 5 MG TABLET PO (09:25)
[2024-02-21] MEDS: 0.9 % Sodium Chloride Flush 3 ML SYRINGE IVFLUSH (09:28)
[2024-02-21] MEDS: cilostazoL 50 MG TABLET PO (09:28)
--- NOTE | 2024-02-21 09:40 | MHC.CM.PN ---
ANTIC PT W/BE MEDICALLY CLEARED FOR DC HOME W/NEW REF TO [facility] FOR HH SERVICES, PT'S DTR TO TRANSPORT
--- NOTE | 2024-02-21 10:36 | P.DS_ITS ---
DS: Providers Provider Date of Service: 02/21/24 Date of admission: 02/18/24 18:46 Date of discharge: 02/21/24 Primary care physician: Seth Eric MD Consults: 02/18/24 18:51 Consult to Cardiology Routine Consulting Provider: [facility] [place] [facility] Reason for consultation: CHF exacerbation, on Bumex drip DS: Diagnosis Discharge Diagnosis (1) Acute on chronic combined systolic and diastolic CHF (congestive heart failure): Status: Acute (2) Elevated troponin: Status: Acute (3) Elevated brain natriuretic peptide (BNP) level: Status: Acute (4) Acute decompensated heart failure: Status: Acute DS: Summary Hospital Course Hospital Course: Admission note HPI Pt is an 83-year-old male with a PMH significant for?CAD, cardiac arrest in Mar 2023 s/p biventricular ICD in place, paroxysmal AFib on Xarelto, peripheral vascular disease, HFrEF, CKD 3, unspecified asthma, GERD, gout, and KEVIN on nasal CPAP who presents to the ED with?increasing lower leg edema unresponsive to p.o. diuretics. States has had increased lower leg and abdominal edema, SOB, and SALAS for the past 1.5 weeks. Patient follows with Dr. Asher in Cardiology who increased his home p.o. Bumex from 2 mg to 4 mg to little effect. Patient states continues to have increasing fluid buildup in his legs despite increased diuretics, to the point where the skin will burst and start bleeding. Also has been experiencing paroxysmal nocturnal dyspnea and orthopnea. Denies chest pain/pressure, palpitations. No fever, chills, nausea, vomiting, abdominal pain. Denies headache. In the ED pt with soft BP of 97/44, otherwise vitals WNL. Labs were significant for normocytic anemia of 9.1/29.5 (around baseline), creatinine 2.02 (similar to previous of 2.21 on 02/09/2024), bilirubin 1.2, alk-phos 123, initial troponin 203.6 with repeat flat at 207.5, and BNP 2625 (significantly increased from 1935 on 02/04). CXR showed small right pleural effusion with mild pulmonary venous congestion but no interstitial edema. EKG demonstrated AV dual paced rhythm with QTc 503. In the ED patient was placed on a bumetanide drip at 1 mg/hr per Cardiology recommendation. Pt will be admitted to the hospital for acute HFrEF exacerbation nonresponsive to outpatient p.o. medications. Hospital course # Acute HFrEF exacerbation The patient was admitted for treatment with IV Bumex drip, started on Spironolactone and MEtolazone with fair response as he got 8-10 negative balance with significant improvement in dyspnea and lower extremities edema. Will be discharged on Low-salt diet, daily weights and to continue Jardiance, metoprolol with changing Bumex to 2 mg bid, adding Spironolactone 25 mg daily and MEtolazone 2.5mg as needed for fluid overload. his daughter is cardiology nurse and will be following with him. to repeat BMP and BNP next week. # Elevated troponins. Initial troponin 203.6 with repeat flat at 207.5. Patient asymptomatic, EKG nonischemic. Likely type 2 in the setting of increased demand # LIBRA on CKD 3. was higher than baseline on admission w Cr of 2.21 on 02/08. improved back to baseline of 1.7 after treating fluid overload. to repeat BMP as outpatient. # Anemia of chronic disease H&H 9.1/29.5, stable, around baseline. Continue iron supplementation. Discharge plan Change Bumex to 2 mg twice a day. Start Spironoloactone 25 mg daily Metolazone 2.5 mg as needed for fluid overload Monitor weight at home Follow up with cardiology as outpatient To repeat blood tests next week Time Attestation Discharge Coordination Time (in mins): 42 Quality: Safe Use of Opioids Does Pt have an Active Cancer Diagnosis on the Problem List?: No Quality: Stroke Does the patient have a stroke diagnosis?: No Physical Exam Vital Signs: Vital Signs: Last Vital Signs Temp 97.6 F 02/21/24 08:00 Pulse 64 02/21/24 08:00 Resp 18 02/21/24 08:00 BP 108/53 L 02/21/24 08:00 Pulse Ox 96 02/21/24 08:00 O2 Del Method Room Air 02/21/24 08:00 BMI result Body Mass Index 30.8 Const: Other: Constitutional : Awake, interactive, not in distress Neck : Normal inspection, Supple Cardiovascular : RRR, no JVP, trace bilateral lower extremity edema Respiratory : good bilateral air entry, no crackles, wheezes or rhonchi Gastrointestinal: soft, lax, Normal bowel sounds, Non tender Skin : Warm, Dry Neurological : Alert & oriented x3, No focal deficit DS: Data Data Completed and Pending Labs on day of discharge: Laboratory Results - last 24 hr 02/21/24 06:48 Hold Purple Top SEE NOTE Sodium 139 Potassium 3.1 L Chloride 88 L Carbon Dioxide 34 H Anion Gap 20 BUN 34 H Creatinine 1.75 H Estim Creat Clear Calc 31.8 Estimated GFR 38 Random Glucose 121 H Calcium 9.7 B-Natriuretic Peptide 1329 H Imaging Chest x-ray: Radiologist's impression: ITS Impressions Chest X-Ray 02/18/24 14:31 IMPRESSION: Small right pleural effusion. Mild pulmonary venous congestion. No interstitial edema. Electronically signed by: Wily Hull MD 02/18/2024 04:11 PM EDT RP Discharge Plan Discharge Anticipated Discharge Date/Time: 02/21/24 10:26 Patient Disposition: Home, Self-Care Discharge Diagnosis: Heart failure exacerbation Referrals: [facility] [Other] - 1 Week (A REFERRAL HAS BEEN PLACED, PLEASE CALL [phone] TO FOLLOW UP.) Seth Eric MD [Primary Care Provider] - 1 Week Discharge Medications: New metolazone 2.5 mg Tablet 2.5 mg PO DAILY PRN (Reason: Fluid overload) Qty: 30 0RF spironolactone 25 mg Tablet 25 mg PO DAILY Qty: 90 0RF Protocol: Hold for SBP< HOLD for SBP < : 90 Continued metoprolol tartrate 25 mg tablet 12.5 mg PO BID 90 Days Qty: 90 1RF magnesium oxide 400 mg magnesium tablet 400 mg PO BID 90 Days Qty: 180 1RF allopurinol 100 mg tablet 100 mg PO DAILY@0900 atorvastatin 40 mg tablet 40 mg PO BEDTIME Xarelto 15 mg tablet 15 mg PO DAILY@1700 Rx Instructions: must administer with evening meal pantoprazole 40 mg tablet,delayed release (DR/EC) 40 mg PO BID@0630,1630 finasteride 5 mg tablet 5 mg PO DAILY@0900 cilostazol 50 mg tablet 50 mg PO BID gabapentin 600 mg tablet 600 mg PO BEDTIME 90 Days Qty: 90 1RF Jardiance 10 mg tablet 10 mg PO DAILY Qty: 90 3RF amiodarone 200 mg tablet 200 mg PO DAILY@1700 ferrous sulfate 325 mg (65 mg iron) tablet,delayed release (DR/EC) 325 mg PO DAILY@0600 Changed bumetanide 1 mg tablet 2 mg PO BID Qty: 120 0RF Discharge Orders: Discharge Order (Routine); Ordered 02/21/24 Ordered By: Alessandra Mota Diet: Low salt diet Activity on Discharge: As tolerated Stand Alone Forms: Patient Portal Discharge page Print Language: Somali Other Ambulatory Orders: Basic Metabolic Panel (Routine) Timeframe: 5 Days Facility: [facility] - Location: Laboratory Ordered By: Alessandra Mota B Type Natriuretic Peptide (Routine) Timeframe: 5 Days Facility: [facility] - Location: Laboratory Ordered By: Alessandra Mota Care Plan Goals: You were treated for heart failure exacerbation. responded well to IV Bumex and low sodium diet as you were followed by lighter. Change Bumex to 2 mg twice a day. Start Spironoloactone 25 mg daily Metolazone 2.5 mg as needed for fluid overload Monitor weight at home Follow up with cardiology as outpatient To repeat blood tests next week Health Concerns: Read below Plan of Treatment: Read below Assessment: Read below
--- NOTE | 2024-02-21 11:18 | PM.PNCARD ---
Subjective Subjective Date of Service: 02/21/24 Interval history: He states he feels fine. No new complaints. Review of Systems Review of Systems Yes all other systems are reviewed and are negative Constitutional: Reports as per HPI and Reports no additional constitutional complaints Eyes: Reports as per HPI and Denies no additional eye complaints Denies system reviewed and no additional complaints, except as documented and Reports as per HPI Cardiovascular: Reports as per HPI, Reports no additional cardiovascular complaints, Denies acrocyanosis, Denies cool extremities, Denies chest pain, Denies leg edema, Denies lightheadedness, Denies palpitations and Denies dyspnea Respiratory: Reports as per HPI, Denies no additional respiratory complaints and Denies dyspnea Gastrointestinal: Reports as per HPI and Denies no additional gastrointestinal complaints Genitourinary: Reports no additional male genitourinary complaints and Reports as per HPI Musculoskeletal: Reports no additional musculoskeletal complaints and Reports as per HPI Skin/Breast: Reports system reviewed and no additional complaints, except as docu Reports system reviewed and no additional complaints, except as documented and Reports as per HPI Psychiatric: Reports no additional psychiatric complaints and Reports as per HPI Endocrine: Reports no additional endocrine complaints, Reports as per HPI and Denies palpitations Hematologic/Lymphatic: Reports no additional hematologic/lymphatic complaints and Reports as per HPI Allergic/Immunologic: Reports no additional allergic/immunologic complaints and Reports as per HPI Physical Exam Vital Signs: Last Vital Signs Temp 97.6 F 02/21/24 08:00 Pulse 64 02/21/24 08:00 Resp 18 02/21/24 08:00 BP 108/53 L 02/21/24 08:00 Pulse Ox 96 02/21/24 08:00 O2 Del Method Room Air 02/21/24 08:00 BMI result Body Mass Index 30.8 Resp Other: Improved lung sounds Extrem Other: Trace edema. Objective Labs and Meds 02/20/24 05:47 02/21/24 06:48 Lab results: Laboratory Results - last 24 hr 02/21/24 06:48 Hold Purple Top SEE NOTE Sodium 139 Potassium 3.1 L Chloride 88 L Carbon Dioxide 34 H Anion Gap 20 BUN 34 H Creatinine 1.75 H Estim Creat Clear Calc 31.8 Estimated GFR 38 Random Glucose 121 H Calcium 9.7 B-Natriuretic Peptide 1329 H Progress Note: A&P Assessment and plan (1) Acute on chronic combined systolic and diastolic CHF (congestive heart failure): Status: Acute (2) Elevated troponin: Status: Acute (3) Ischemic cardiomyopathy: Status: Acute (4) History of torsades de pointes: Status: Acute (5) Atherosclerotic cardiovascular disease: Status: Acute (6) Atrial fibrillation: Status: Acute Plan Overall, he states that he is feeling much better. We can stop the Bumex drip. We can do oral Bumex 4 mg daily. Either together or divided doses. May use metolazone as necessary. Also continue spironolactone. Replacement potassium. Labs in the coming week. Otherwise, continue low-dose beta-blockers, Jardiance. In the past, could not tolerate Entresto due to low blood pressure issues. Telemetry otherwise seems unremarkable. He can continue the usual cardiac regimen otherwise. Discussed with daughter at the bedside. Will arrange follow-up in clinic. Discussed with Dr. Mota. Time Spent With Patient Time: Total time managing care of this patient today ____ minutes. Progress Note: Quality Stroke Does the patient have a stroke diagnosis?: No Procedures Date of Service Date of Service: 02/21/24
[2024-02-21 11:53] VITALS: BP 115/58; PULSE 70; RESP 18; TEMP 36.2; O2SAT 96
--- NOTE | 2024-02-23 16:04 | P.CDIM_ITS ---
PROVIDER RESPONSE TEXT: To clarify, the appropriate diagnosis supported by the clinical indicators: Mild intermittent QUERY TEXT: PHYSICIAN'S DOCUMENTATION REQUEST Date of Query: 02/20/2024 08:38 AM EDT Patient Name: Sherman Hurtado Admit Date: 02/18/2024 Dear Alessandra Mota MD, A review of the medical record indicates additional documentation may be needed. Please review below and update the documentation accordingly. Progress note - Respiratory - good bilateral air entry, basal fine crackles, wheezes or rhonchi Asthma History of smoking KEVIN on nasal CPAP. Based on the above, please clarify in the Progress Notes further specificity regarding the type of as thma if known: Mild intermittent Mild persistent Moderate persistent Severe persistent Exercise induced Other (explain) Clinically unable to determine (explain) Thank you, Xenia Boles, CCS, CDIS Use of terms such as suspected, likely, concern for, or probable (associated with a specific diagnosi s that is being evaluated, monitored, or treated as if it exists) are acceptable and can be coded in the inpatient se tting, when documented at the time of discharge. Please use your independent medical judgment in providing your response. THIS QUERY IS PART OF THE PERMANENT MEDICAL RECORD
== END 2024-02-21 13:45 | disposition home or self-care (01) | DRG 293 ==
LOC: HO.ED 16:55 → HO.EDOVER 19:11 → HO.IMC 20:02
PROVIDERS: Physician Assistant Medical; Admitting Provider Student in an Organized Health Care Education/Training Program; Emergency Provider Emergency Medicine; PCP Internal Medicine Sports Medicine; Visit Provider Student in an Organized Health Care Education/Training Program
DX: I50.23 Acute on chronic systolic (congestive) heart failure (principal); N18.30 Chronic kidney disease, stage 3 unspecified; J45.20 Mild intermittent asthma, uncomplicated; G47.33 Obstructive sleep apnea (adult) (pediatric); D63.1 Anemia in chronic kidney disease; I08.3 Combined rheumatic disorders of mitral, aortic and tricuspid valves; I27.20 Pulmonary hypertension, unspecified; I25.10 Atherosclerotic heart disease of native coronary artery without angina pectoris; Z95.810 Presence of automatic (implantable) cardiac defibrillator; Z23 Encounter for immunization; Z95.1 Presence of aortocoronary bypass graft; Z86.74 Personal history of sudden cardiac arrest; Z87.891 Personal history of nicotine dependence; Z79.01 Long term (current) use of anticoagulants; Z79.899 Other long term (current) drug therapy
CPT/HCPCS: 36415; 71046; 80048; 80076; 83735; 83880; 84484; 85025; 85027; 85610; 85730; 90656; 93005; 93306; 94660; 99285; J1939; Q9957

== ENCOUNTER 2024-02-18 18:46 | Outpatient (BNV) | payer MEDICARE, SELFPAY | END 2024-02-19 07:00 | PROVIDERS: Admitting Provider Student in an Organized Health Care Education/Training Program; Emergency Provider Emergency Medicine; PCP Obstetrics & Gynecology; Visit Provider Internal Medicine | DX: I35.1 Nonrheumatic aortic (valve) insufficiency (principal); I34.0 Nonrheumatic mitral (valve) insufficiency; I36.1 Nonrheumatic tricuspid (valve) insufficiency | CPT/HCPCS: 93306 ==

== ENCOUNTER → 2024-02-18 18:46 | Outpatient (BNV) | payer MEDICARE, SELFPAY | PROVIDERS: Admitting Provider Student in an Organized Health Care Education/Training Program; Emergency Provider Emergency Medicine; PCP Obstetrics & Gynecology; Visit Provider Student in an Organized Health Care Education/Training Program | DX: I50.43 Acute on chronic combined systolic (congestive) and diastolic (congestive) heart failure (principal) | CPT/HCPCS: 99223; 99232; 99233; 99239 ==

== ENCOUNTER → 2024-02-18 18:46 | Outpatient (BNV) | payer MEDICARE, SELFPAY | PROVIDERS: Admitting Provider Student in an Organized Health Care Education/Training Program; Emergency Provider Emergency Medicine; PCP Obstetrics & Gynecology; Visit Provider Internal Medicine | DX: I50.43 Acute on chronic combined systolic (congestive) and diastolic (congestive) heart failure (principal); R79.89 Other specified abnormal findings of blood chemistry; I25.5 Ischemic cardiomyopathy; Z86.79 Personal history of other diseases of the circulatory system; I25.10 Atherosclerotic heart disease of native coronary artery without angina pectoris; I48.91 Unspecified atrial fibrillation | CPT/HCPCS: 99223; 99233 ==

== ENCOUNTER 2024-02-24 09:56 | Outpatient (REF) | payer MEDICARE, SELFPAY ==
[2024-02-24 11:11] LABS: MANUAL DIFF FLAG NO
[2024-02-24 11:19] LABS: Basophils Percent Auto 0.4 % (0-2); Eosinophils Absolute Auto 0.3 X10*3/uL (0.0-0.4); Eosinophils Percent Auto 3.7 % (0-4); Hematocrit 29.5 % (42.0-52.0); Hemoglobin 9.2 g/dl (14.0-18.0); Imm Gran Abs Auto 0.08 X10*3/uL (0.00-0.03); Imm Gran Pct Auto 0.9 % (0.0-0.4); Lymphocytes Absolute Auto 1.3 X10*3/uL (1.2-4.9); Lymphocytes Percent Auto 14.4 % (20-40); Mean Corpuscular HGB Conc 31.2 g/dl (31.0-36.0); Mean Corpuscular Hemoglobin 25.1 pg (27.0-33.0); Mean Corpuscular Volume 80.6 fL (80.0-98.0); Mean Platelet Volume 10.8 fL (9.4-12.4); Monocytes Absolute Auto 0.7 X10*3/uL (0.1-1.2); Neutrophils Absolute Auto 6.5 x10*3/uL (2.0-8.3); Neutrophils Percent Auto 72.6 % (45-73); Platelet Count 301 X10*3/uL (160-400); Red Blood Count 3.66 X10*6/uL (4.60-5.80); Red Cell Distribution Width 21.1 % (11.0-16.0); White Blood Count 8.9 X10*3/uL (4.8-10.8)
[2024-02-24 11:27] LABS: INTERNATIONAL NORM RATIO 2.2 (0.9-1.1); Prothrombin Time 26.4 SEC (11.1-13.3)
[2024-02-24 11:30] LABS: Partial Thromboplastin Time 39.7 SEC (26.0-36.8)
[2024-02-24 11:31] LABS: B Type Natriuretic Peptide 1964 pg/mL (<100)
[2024-02-24 12:16] LABS: Anion Gap 21 (12-20); Blood Urea Nitrogen 72 mg/dL (9-16); Calcium 9.1 mg/dL (8.4-10.2); Carbon Dioxide 29 mmol/L (22-29); Chloride 86 mmol/L (96-108); Estimated Glomerular Filt Rate 24; Glucose Random 145 mg/dL (60-115); Potassium 4.3 mmol/L (3.3-5.1); Sodium 132 mmol/L (135-145)
[2024-02-24 12:31] LABS: Ferritin 175 ng/mL (20-250); Iron 35 mcg/dL (45-160); Percent Iron Saturation 8 % (15-50); Total Iron Binding Capacity 438 mcg/dL (228-428); Unsaturated Iron Binding 403 ug/dL
== END 2024-02-24 09:57 | disposition home or self-care (01) ==
LOC: HO.WFDLDS 09:56
PROVIDERS: Internal Medicine Sports Medicine; Visit Provider Student in an Organized Health Care Education/Training Program
DX: I50.43 Acute on chronic combined systolic (congestive) and diastolic (congestive) heart failure (principal); D50.9 Iron deficiency anemia, unspecified; R79.1 Abnormal coagulation profile
CPT/HCPCS: 36415; 80048; 82728; 83540; 83880; 85025; 85610; 85730

== ENCOUNTER 2024-02-26 09:07 | Outpatient (REF) | payer MEDICARE, SELFPAY ==
[2024-02-26 11:25] LABS: B Type Natriuretic Peptide 2031 pg/mL (<100)
[2024-02-26 14:39] LABS: Anion Gap 16 (12-20); Blood Urea Nitrogen 78 mg/dL (9-16); Calcium 9.1 mg/dL (8.4-10.2); Carbon Dioxide 28 mmol/L (22-29); Chloride 90 mmol/L (96-108); Estimated Glomerular Filt Rate 23; Glucose Random 129 mg/dL (60-115); Potassium 4.3 mmol/L (3.3-5.1); Sodium 130 mmol/L (135-145)
== END 2024-02-26 09:08 | disposition home or self-care (01) ==
LOC: HO.WFDLDS 09:07
PROVIDERS: Nurse Practitioner; Visit Provider Internal Medicine
DX: I50.42 Chronic combined systolic (congestive) and diastolic (congestive) heart failure (principal)
CPT/HCPCS: 36415; 80048; 83880

== ENCOUNTER 2024-03-01 09:07 | Outpatient (REF) | payer MEDICARE, SELFPAY ==
[2024-03-01 12:10] LABS: B Type Natriuretic Peptide 1672 pg/mL (<100)
[2024-03-01 12:21] LABS: Anion Gap 16 (12-20); Blood Urea Nitrogen 71 mg/dL (9-16); Calcium 9.1 mg/dL (8.4-10.2); Carbon Dioxide 25 mmol/L (22-29); Chloride 91 mmol/L (96-108); Estimated Glomerular Filt Rate 32; Glucose Random 148 mg/dL (60-115); Potassium 3.8 mmol/L (3.3-5.1); Sodium 128 mmol/L (135-145)
== END 2024-03-01 09:08 | disposition home or self-care (01) ==
LOC: HO.WFDLDS 09:07
PROVIDERS: Visit Provider Internal Medicine
DX: I50.9 Heart failure, unspecified (principal); I50.42 Chronic combined systolic (congestive) and diastolic (congestive) heart failure
CPT/HCPCS: 36415; 80048; 83880

== ENCOUNTER 2024-03-03 08:55 | Outpatient (REF) | payer MEDICARE, SELFPAY ==
[2024-03-03 10:27] LABS: Appearance Urine Clear; Color Urine Yellow; Glucose Urine UA Negative (Negative); Leukocyte Esterase Urine Negative (Negative); Nitrite Urine Negative (Negative); PH 7.5 (5.0-9.0); Specific Gravity - Urine 1.015 (1.005-1.025); Urine Blood Negative (Negative); Urine Ketones Negative (Negative); Urine Protein Trace mg/dL (Neg-Trace)
[2024-03-03 10:50] LABS: B Type Natriuretic Peptide 1912 pg/mL (<100)
[2024-03-03 11:08] LABS: Anion Gap 14 (12-20); Blood Urea Nitrogen 76 mg/dL (9-16); Calcium 8.7 mg/dL (8.4-10.2); Carbon Dioxide 25 mmol/L (22-29); Chloride 96 mmol/L (96-108); Estimated Glomerular Filt Rate 27; Glucose Random 146 mg/dL (60-115); Potassium 4.5 mmol/L (3.3-5.1); Sodium 130 mmol/L (135-145)
== END 2024-03-03 08:56 | disposition home or self-care (01) ==
LOC: HO.WFDLDS 08:55
PROVIDERS: Internal Medicine Hypertension Specialist; Visit Provider Internal Medicine
DX: I50.42 Chronic combined systolic (congestive) and diastolic (congestive) heart failure (principal); I25.10 Atherosclerotic heart disease of native coronary artery without angina pectoris; I47.20 Ventricular tachycardia, unspecified; I48.91 Unspecified atrial fibrillation; R94.6 Abnormal results of thyroid function studies; N17.9 Acute kidney failure, unspecified; Z95.810 Presence of automatic (implantable) cardiac defibrillator; Z86.74 Personal history of sudden cardiac arrest
CPT/HCPCS: 36415; 80048; 81003; 83880; 93005; 99212

== ENCOUNTER 2024-03-03 14:24 | Outpatient (AMB) | payer MEDICARE, SELFPAY ==
[2024-03-03 14:30] VITALS: BP 120/60; PULSE 72; BMI 29.9
--- NOTE | 2024-03-03 14:30 | MHC.OFFVIS ---
Vital Signs 03/03/24 14:30 Height 5 ft 4 in Weight 174 lb 2.643 oz BMI 29.9 BP 120/60 Blood Pressure Location Lt brachial Position Sitting Pulse 72 Intake Visit Reasons: 2m follow up Intake Note: 2 month follow-up c/o fatigue Sub Acute Care Nurse Required: No Allergies doxycycline Allergy (Unknown, Verified 02/18/24 14:29) Unknown narcotics Adverse Reaction (Uncoded 02/18/24 14:29) Nausea and Vomiting, hypotensive Medication List - Last Reconciled 03/03/24 by Evangelista Asher MD allopurinol 100 mg PO DAILY@0900 amiodarone 200 mg PO DAILY@1700 atorvastatin 40 mg PO BEDTIME bumetanide 2 mg (2 x 1 mg) PO BID cilostazol 50 mg PO BID ferrous sulfate 325 mg PO DAILY@0600 finasteride 5 mg PO DAILY@0900 gabapentin 600 mg PO BEDTIME 90 days magnesium oxide 400 mg PO BID 90 days metolazone 2.5 mg PO DAILY PRN pantoprazole 40 mg PO BID@0630,1630 potassium chloride ER (Klor-Con M) 40 mEq (2 x 20 mEq) PO DAILY rivaroxaban (Xarelto) 15 mg PO DAILY@1700 HPI Comments Details: Sherman returns for follow-up regarding congestive heart failure. To recall, in May 2023, he traveled to [place] for a visit and in that setting, he had cardiac arrest. There was bystander CPR and AED shocks and then return of spontaneous circulation. Then taken to hospital and appropriately managed. In the hospital, rhythm was apparently ventricular fibrillation. Then he underwent left heart catheterization, but that showed no significant findings and he had patent grafts. He was also in congestive heart failure and was on diuretic drips and dobutamine drips as well. Eventually, he underwent a BiV ICD and then discharged. This year, he has had a lot of heart failure issues. More recently, he was in the hospital for congestive heart failure and he was adequately diuresed and discharged. After that, we have been managing his heart failure as an outpatient. He also has some kidney issues which could be from cardiorenal syndrome. Otherwise, history of polymorphic VT while he was in cardiac rehab few months back. He has been on amiodarone since that time. No recurrent arrhythmias after that. Due to low blood pressure issues, he has been off beta-blockers, Entresto. Briefly put on spironolactone but that has been stopped as well. Since the most recent discharge, he states he is generally getting along okay. Some tiredness on specific days but other days are okay. Breathing is okay. Weight seems better. [facility] Medical History Ischemic cardiomyopathy History of torsades de pointes Atherosclerotic cardiovascular disease Elevated serum creatinine Biventricular ICD (implantable cardioverter-defibrillator) in place Syncope RBBB PVD (peripheral vascular disease) Hx of thyroid nodule GERD (gastroesophageal reflux disease) CAD (coronary artery disease) BPH (benign prostatic hyperplasia) Asthma Atrial fibrillation Surgical History Hx of CABG Hx of cardiac cath H/O right knee surgery H/O heart surgery Family History Mother Breast cancer Father Heart attack Brother Stomach cancer Brother Heart disease Social History Household Members: None Housing: House Do you presently have visiting nurse or other home services: No Alcohol intake: former Comment: pt refusing red socks, alarms, and camera Patient Tobacco Use Status: Former Tobacco user Years Smoked: 25 +/- Advance Directives Date on File: 10/31/23 service: Yes Review of Systems Const Denies chills, Denies fatigue, Denies fever(s), Denies frequent falls, Denies weakness, Denies weight gain and Denies weight loss ENT Denies dizziness Card Denies chest pain, Denies leg edema, Denies lightheadedness, Denies palpitations, Denies dyspnea, Denies dyspnea on exertion, Denies orthopnea and Denies other (loss of consciousness) Resp Denies cough, Denies dyspnea and Denies dyspnea on exertion GI Denies hematochezia and Denies change in stool character Musc Denies abnormal gait, Denies muscle weakness, Denies numbness, Denies radiating pain into limb and Denies tingling Neuro Denies abnormal gait, Denies dizziness, Denies frequent falls, Denies numbness, Denies tingling and Denies weakness Endo Denies fatigue and Denies palpitations Physical Exam Vital Signs: Last Vital Signs Pulse 72 03/03/24 14:30 BP 120/60 03/03/24 14:30 BMI result Body Mass Index 29.9 Const General: comfortable and no acute distress Orientation/consciousness: patient oriented x3 HEENT Other: Unremarkable Head: Yes normal to inspection Neck Neck: Yes normal visual inspection Chest Chest palpation & inspection: normal inspection of the chest Resp Other: Basal inspiratory crackles Cardio Palpation: normal PMI Heart sounds: S1 normal heart sound present, S2 normal heart sound present, no gallops, no murmurs and no rubs GI Palpation (GI): Soft to palpation Back/Spine/Pelvis Other: unremarkable Skin General skin exam: no rashes or lesions noted Neuro General: patient oriented x3 Extrem General: Yes normal to inspection Psych Mental Status: mental status grossly normal Office Procedures EKG Details: EKG with AV dual paced rhythm at 77/Min. 16814-Yzqflefecucyeysuo, Complete Assessment & Plan Assessment & Plan (1) Chronic combined systolic and diastolic CHF (congestive heart failure): Code(s): I50.42 - Chronic combined systolic (congestive) and diastolic (congestive) heart failure Category: Medical Plan: He is taking between Bumex 2 mg to 4 mg daily. Based on his kidney function we can adjust regularly. He runs quite low blood pressures and hence various medications have been stopped including metoprolol, Entresto, Jardiance, spironolactone. He was scheduled for [facility] but today he states that he is not interested. Hence we will cancel. (2) Atherosclerotic cardiovascular disease: Code(s): I25.10 - Atherosclerotic heart disease of [place] coronary artery without angina pectoris Category: Medical Plan: In the cardiac catheterization in 05/2023-heavily calcified and occluded left main, LAD, circumflex and right coronary arteries. Patent SHANE to LAD graft, SVG to OM branch of circumflex, SVG to PDA branch of RCA. He does not have any overt angina. The ventricular arrhythmias could be ischemic but as the grafts were wide open, do not see any obvious targets. Continue statins. Off Ranexa as well as there were some side effects but not clear if it is true side effect as it was leg swelling. (3) Ventricular tachycardia: Code(s): I47.20 - Ventricular tachycardia, unspecified Category: Medical Plan: ICD shock; polymorphic VT while in cardiac rehab. Now on amiodarone. Continue. (4) Biventricular ICD (implantable cardioverter-defibrillator) in place: Code(s): Z95.810 - Presence of automatic (implantable) cardiac defibrillator Category: Medical Plan: Normally functioning and being monitored remotely. (5) Atrial fibrillation: Code(s): I48.91 - Unspecified atrial fibrillation Category: Medical Plan: Continue amiodarone and anticoagulation. Plan Discussed with daughter who came for appointment. Orders: Orders TSH reflex Free T4 Today R94.6 - Abnormal results of thyroid function studies Coding Level of Care Code Est Pt Level 4 (33860) Diagnoses Chronic combined systolic and diastolic CHF (congestive heart failure) I50.42 Atherosclerotic cardiovascular disease I25.10 Ventricular tachycardia I47.20 Biventricular ICD (implantable cardioverter-defibrillator) in place Z95.810 Atrial fibrillation I48.91 CPT Codes EKG - CPT: 61559-[id number], Complete ([id number])
== END 2024-03-03 15:00 | disposition home or self-care (01) ==
PROVIDERS: Visit Provider Internal Medicine
DX: I50.42 Chronic combined systolic (congestive) and diastolic (congestive) heart failure (principal); I25.10 Atherosclerotic heart disease of native coronary artery without angina pectoris; I47.20 Ventricular tachycardia, unspecified; Z95.810 Presence of automatic (implantable) cardiac defibrillator; I48.91 Unspecified atrial fibrillation
CPT/HCPCS: 93010; 99214

== ENCOUNTER 2024-03-04 13:19 | Outpatient (AMB) | payer MEDICARE, SELFPAY ==
--- NOTE | 2024-03-04 13:21 | HO.NEPHOV ---
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: No Accompanied by: Daughter Allergies doxycycline Allergy (Unknown, Verified 03/04/24 13:23) Unknown narcotics Adverse Reaction (Uncoded 02/18/24 14:29) Nausea and Vomiting, hypotensive Medication List - Last Reconciled 03/04/24 by Young Anguiano MD allopurinol 100 mg PO DAILY@0900 amiodarone 200 mg PO DAILY@1700 atorvastatin 40 mg PO BEDTIME bumetanide 2 mg (2 x 1 mg) PO BID cilostazol 50 mg PO BID ferrous sulfate 325 mg PO DAILY@0600 finasteride 5 mg PO DAILY@0900 gabapentin 600 mg PO BEDTIME 90 days lorazepam 0.5 mg PO DAILY PRN magnesium oxide 400 mg PO BID 90 days pantoprazole 40 mg PO BID@0630,1630 potassium chloride ER (Klor-Con M) 40 mEq (2 x 20 mEq) PO DAILY rivaroxaban (Xarelto) 15 mg PO DAILY@1700 HPI Comments Details: 83-year-old male with history of cardiac arrest s/p biventricular ICD placement, paroxysmal atrial fibrillation anticoagulated with Eliquis, coronary artery disease, peripheral vascular disease, GERD, unspecified asthma, and obstructive sleep apnea In 06/04/2023 he had cardiac arrest and recovered. His baseline creatinine was around 0.8 mg/dL up until 11/03/2023. Between October and November 28 creatinine is bumped up to 1.8 and the highest reading was 2.2. At present creatinine is 1.8 mg/dL. For the last 2 months he has had significant fluid retention and is on Bumex 2 mg once a day without significant improvement. He continues to gain weight. He is on a low-sodium diet. He still has shortness of breath on exertion no chest pain. No nausea or vomiting. He has no specific urinary complaints. However sometimes he does not empty his bladder completely. He has history of alcohol intake in the past in the at present he does not consume alcohol. Remote history of smoking. 03/04/24. Recently hospitalized for heart failure. He was diuresed with IV diuretics and metolazone was added. Subsequently developed mild hyponatremia. Today's accompanied by his daughter. [facility] Medical History Ischemic cardiomyopathy History of torsades de pointes Atherosclerotic cardiovascular disease Elevated serum creatinine Biventricular ICD (implantable cardioverter-defibrillator) in place Syncope RBBB PVD (peripheral vascular disease) Hx of thyroid nodule GERD (gastroesophageal reflux disease) CAD (coronary artery disease) BPH (benign prostatic hyperplasia) Asthma Atrial fibrillation Surgical History Hx of CABG Hx of cardiac cath H/O right knee surgery H/O heart surgery Family History Mother Breast cancer Father Heart attack Brother Stomach cancer Brother Heart disease Social History Household Members: None Housing: House Do you presently have visiting nurse or other home services: No Alcohol intake: former Comment: pt refusing red socks, alarms, and camera Patient Tobacco Use Status: Former Tobacco user Years Smoked: 25 +/- Advance Directives Date on File: 10/31/23 service: Yes Physical Exam Vital Signs: Last Vital Signs Pulse 85 03/04/24 13:22 BP 114/50 L 03/04/24 13:22 Pulse Ox 98 03/04/24 13:22 Oxygen Delivery Method Room Air 03/04/24 13:22 BMI result Body Mass Index 30.6 Const General: comfortable; No acute distress Orientation/consciousness: patient oriented x3 Eyes General: appearance normal, both eyes and all related structures Visual Ingram: normal visual ingram by confrontation Neck Neck: Yes supple and Yes no JVD Resp Effort & Inspection: normal respiratory effort and respiratory effort not decreased Auscultation: rhonchi Cardio Palpation: no palpable S3 and no palpable S4 Heart sounds: no rubs GI Inspection: Yes distended Palpation (GI): Soft to palpation Percussion: Yes normal to percussion Auscultation: normal bowel sounds General: Yes no CVA tenderness Back/Spine/Pelvis Back: no CVA tenderness Skin General skin exam: no petechiae and no purpura Neuro General: patient oriented x3 and no focal motor deficits Extrem General: No clubbing and Yes edema (3+) Results Reviewed Nephrology Results: Hgb 9.2 g/dl (14.0-18.0) L 02/24/24 WBC 8.9 X10*3/uL (4.8-10.8) 02/24/24 Plt Count 301 X10*3/uL (160-400) 02/24/24 Sodium 130 mmol/L (135-145) L 03/03/24 Potassium 4.5 mmol/L (3.3-5.1) 03/03/24 Chloride 96 mmol/L (96-108) 03/03/24 Carbon Dioxide 25 mmol/L (22-29) 03/03/24 BUN 76 mg/dL (9-16) H 03/03/24 Creatinine 2.31 mg/dL (0.5-1.4) H 03/03/24 Calcium 8.7 mg/dL (8.4-10.2) 03/03/24 Urine Protein Trace mg/dL (Neg-Trace) 03/03/24 Renal US 02/11/24 Assessment & Plan Assessment & Plan (1) Chronic combined systolic and diastolic CHF (congestive heart failure): Code(s): I50.42 - Chronic combined systolic (congestive) and diastolic (congestive) heart failure Category: Medical (2) LIBRA (acute kidney injury): Code(s): N17.9 - Acute kidney failure, unspecified Category: Medical Plan Elderly man with a history of ischemic cardiomyopathy status post cardiac arrest who has congestive heart failure has worsening edema with acute kidney injury. Up until 11/03/2023 serum creatinine was at baseline of 0.8. Recently creatinine is bumped up to 1.8 mg/dL while he was on Bumex. Recent urinalysis was benign without any significant proteinuria or hematuria. Acute kidney injury is most likely due to hypoperfusion in the setting of heart failure. He has cardiorenal syndrome. Obstructive uropathy has been ruled out in this elderly man. For now I would continue the current dose of Bumex. Encouraged to continue with a low-sodium diet. No monoclonal proteins Follow up with Cardiology Significant anemia with iron deficiency. Chronic low blood pressure in the setting of ischemic cardiomyopathy. In view of hyponatremia I would avoid using thiazide type diuretics including metolazone. Orders: Orders Basic Metabolic Panel 6 Weeks N17.9 - Acute kidney failure, unspecified Coding Level of Care Code Est Pt Level 4 (74296) Diagnoses Chronic combined systolic and diastolic CHF (congestive heart failure) I50.42 LIBRA (acute kidney injury) N17.9
[2024-03-04 13:22] VITALS: BP 114/50; PULSE 85; O2SAT 98; BMI 30.6
== END 2024-03-04 13:39 | disposition home or self-care (01) ==
PROVIDERS: PCP Internal Medicine Sports Medicine; Visit Provider Internal Medicine Hypertension Specialist
DX: I50.42 Chronic combined systolic (congestive) and diastolic (congestive) heart failure (principal); N17.9 Acute kidney failure, unspecified
CPT/HCPCS: 99214

== ENCOUNTER → 2024-03-04 13:19 | Outpatient (BNVA) | payer MEDICARE, SELFPAY | PROVIDERS: PCP Internal Medicine Sports Medicine; Visit Provider Internal Medicine Hypertension Specialist | DX: N17.9 Acute kidney failure, unspecified (principal); I50.42 Chronic combined systolic (congestive) and diastolic (congestive) heart failure | CPT/HCPCS: 99212 ==

== ENCOUNTER → 2024-03-15 23:59 | Outpatient (BNV) | payer MEDICARE, SELFPAY ==
--- NOTE | 2024-03-15 15:12 | MHC.OFFVIS ---
Intake Visit Reasons: Remote HF monitoring- [employer] Allergies doxycycline Allergy (Unknown, Verified 03/04/24 13:23) Unknown narcotics Adverse Reaction (Uncoded 02/18/24 14:29) Nausea and Vomiting, hypotensive PFSH Medical History Ischemic cardiomyopathy History of torsades de pointes Atherosclerotic cardiovascular disease Elevated serum creatinine Biventricular ICD (implantable cardioverter-defibrillator) in place Syncope RBBB PVD (peripheral vascular disease) Hx of thyroid nodule GERD (gastroesophageal reflux disease) CAD (coronary artery disease) BPH (benign prostatic hyperplasia) Asthma Atrial fibrillation Surgical History Hx of CABG Hx of cardiac cath H/O right knee surgery H/O heart surgery Family History Mother Breast cancer Father Heart attack Brother Stomach cancer Brother Heart disease Social History Household Members: None Housing: House Do you presently have visiting nurse or other home services: No Alcohol intake: former Comment: pt refusing red socks, alarms, and camera Patient Tobacco Use Status: Former Tobacco user Years Smoked: 25 +/- Advance Directives Date on File: 10/31/23 service: Yes Office Procedures Cardiac Device Check Cardiac Device Check Details: Date of service- 03/15/2024; based on impedance data and physiological variables, there is no evidence of worsening congestive heart failure. [id number] Cardiac Device Interrogation, cardio physiologic monitor Procedure code (CPT) selection complete Assessment & Plan Assessment & Plan (1) Biventricular ICD (implantable cardioverter-defibrillator) in place: Code(s): Z95.810 - Presence of automatic (implantable) cardiac defibrillator Category: Medical (2) Chronic combined systolic and diastolic CHF (congestive heart failure): Code(s): I50.42 - Chronic combined systolic (congestive) and diastolic (congestive) heart failure Category: Medical Plan x Coding Level of Care Code Procedure Only Diagnoses Biventricular ICD (implantable cardioverter-defibrillator) in place Z95.810 Chronic combined systolic and diastolic CHF (congestive heart failure) I50.42 CPT Codes Cardiac Device Check - Cardiac Device 15: [id number] Cardiac Device Interrogation, cardio physiologic monitor ([id number])
== END ==
PROVIDERS: PCP Internal Medicine Sports Medicine; Visit Provider Internal Medicine
DX: I50.42 Chronic combined systolic (congestive) and diastolic (congestive) heart failure (principal); Z95.810 Presence of automatic (implantable) cardiac defibrillator
CPT/HCPCS: 93297

== ENCOUNTER 2024-03-22 09:20 | Outpatient (REF) | payer MEDICARE, SELFPAY ==
[2024-03-22 11:47] LABS: B Type Natriuretic Peptide 1216 pg/mL (<100)
[2024-03-22 11:50] LABS: Anion Gap 18 (12-20); Blood Urea Nitrogen 78 mg/dL (9-16); Calcium 8.5 mg/dL (8.4-10.2); Carbon Dioxide 23 mmol/L (22-29); Chloride 91 mmol/L (96-108); Estimated Glomerular Filt Rate 21; Glucose Random 118 mg/dL (60-115); Potassium 3.9 mmol/L (3.3-5.1); Sodium 128 mmol/L (135-145)
[2024-03-22 12:14] LABS: TSH reflex Free T4 26.46 uIU/mL (0.32-4.0)
[2024-03-22 12:44] LABS: Free T4 (Free Thyroxine) 0.52 ng/dL (0.71-1.85)
== END 2024-03-22 09:21 | disposition home or self-care (01) ==
LOC: HO.WFDLDS 09:20
PROVIDERS: Referring Provider Internal Medicine Hypertension Specialist; Visit Provider Internal Medicine
DX: R94.6 Abnormal results of thyroid function studies (principal); I50.42 Chronic combined systolic (congestive) and diastolic (congestive) heart failure; I50.9 Heart failure, unspecified
CPT/HCPCS: 36415; 80048; 83880; 84439; 84443

== ENCOUNTER 2024-04-01 09:42 | Outpatient (REF) | payer MEDICARE, SELFPAY ==
[2024-04-01 11:41] LABS: Anion Gap 14 (12-20); B Type Natriuretic Peptide 1528 pg/mL (<100); Blood Urea Nitrogen 68 mg/dL (9-16); Calcium 8.8 mg/dL (8.4-10.2); Carbon Dioxide 28 mmol/L (22-29); Chloride 95 mmol/L (96-108); Estimated Glomerular Filt Rate 28; Glucose Random 102 mg/dL (60-115); Potassium 3.1 mmol/L (3.3-5.1); Sodium 134 mmol/L (135-145)
== END 2024-04-01 09:43 | disposition home or self-care (01) ==
LOC: HO.WFDLDS 09:42
PROVIDERS: Visit Provider Internal Medicine
DX: I50.42 Chronic combined systolic (congestive) and diastolic (congestive) heart failure (principal); N17.9 Acute kidney failure, unspecified
CPT/HCPCS: 36415; 80048; 83880

== ENCOUNTER 2024-04-12 09:49 | Inpatient (IN) | payer MEDICARE, SELFPAY ==
[2024-04-12] VITALS (7 sets, daily range): BP systolic 103–128; BP diastolic 52–59; PULSE 60–78; RESP 12–20; TEMP 36–37.1; O2SAT 98–100; BMI 33.2
--- NOTE | ~2024-04-12 | XR_ITS ---
EXAMINATION: XR CHEST CLINICAL INFORMATION: Cough. COMPARISON: Most recent chest radiography dated 04/12/2024. TECHNIQUE: Frontal view of the chest was obtained. FINDINGS: Left chest wall pacer/AICD with its leads in the right heart. Sternal wires are redemonstrated. Right cervical mario. No airspace consolidation. No pleural effusion or pneumothorax. Stable cardiomediastinal silhouette. XR/XR chest 1V IMPRESSION: No acute cardiopulmonary findings. Electronically signed by: Sukhwinder Mo MD 04/16/2024 02:40 PM EDT
--- NOTE | ~2024-04-12 | XR_ITS ---
EXAMINATION: XR CHEST CLINICAL INFORMATION: Dyspnea. COMPARISON: Chest radiograph 02/18/2024. TECHNIQUE: Frontal view of the chest was obtained. FINDINGS: Left-sided pacer/AICD with leads overlying the expected location of the right atrium, coronary sinus and right ventricle. Median sternotomy wires with redemonstration of fractures in the uppermost wires. Mediastinal surgical clips. Stable prominence of the cardiomediastinal silhouette. Numerous EKG leads overlie the chest. Central bronchovascular prominence. Mild diffuse interstitial thickening. No dense consolidation. No pleural effusion or pneumothorax. No acute osseous findings. XR/XR chest 1V IMPRESSION: Findings are suggestive of interstitial pulmonary edema, though an atypical infectious/inflammatory process should be clinically correlated. No dense consolidation or pleural effusion. Electronically signed by: Pam Workman MD 04/12/2024 11:11 AM EDT
--- NOTE | ~2024-04-12 | US_ITS ---
ULTRASOUND GUIDED PARACENTESIS History: Ascites. Therapeutic drainage. Risks and benefits and possible complications were discussed with the patient and consent form was signed. A safe pocket of ascitic fluid was identified using ultrasound guidance, and the overlying skin was marked. The abdomen prepped and draped in sterile fashion. 1% lidocaine was used as a local anesthetic. Using ultrasound guidance, a 5 fr catheter was placed into the ascitic pocket. 2.3 liters of valarie fluid was removed passively. The catheter was then removed. A few utility sales representative images from before and after the examination were obtained. The procedure was performed by Holger Sheppard PA-C and supervised by Dr. Briscoe. US/US paracentesis abd w/image IMPRESSION: Ultrasound-guided paracentesis as described above. No immediate complications Electronically signed by: Wily Briscoe MD 04/27/2024 11:08 AM [facility]
--- NOTE | ~2024-04-12 | US_ITS ---
ULTRASOUND GUIDED PARACENTESIS HISTORY: Ascites. Therapeutic drainage. TECHNIQUE: Risks and benefits and possible complications were discussed with the patient and consent form was signed. A safe pocket of ascitic fluid was identified using ultrasound guidance, and the overlying skin was marked. The abdomen prepped and draped in sterile fashion. 1% lidocaine was used as a local anesthetic. Using ultrasound guidance, a 5 fr catheter was placed into the ascitic pocket. 2.9 liters of yellow fluid was removed passively. The catheter was then removed. A few c s s representative images from before and after the examination were obtained. The procedure was performed by Holger Sheppard PA-C and supervised by Dr. Briscoe. US/US paracentesis abd w/image IMPRESSION: Ultrasound-guided paracentesis as described above. No immediate complications Electronically signed by: Wily Briscoe MD 04/30/2024 12:55 PM NIC
--- NOTE | ~2024-04-12 | XR_ITS ---
EXAMINATION: XR CHEST CLINICAL INFORMATION: CHF followup. COMPARISON: 04/16/2024. TECHNIQUE: Frontal view of the chest was obtained. FINDINGS: Left chest wall pacemaker/AICD with leads overlying right heart. Median sternotomy wires with redemonstration of broken/disrupted superior wires. Cardiac silhouette remains enlarged. Low lung volumes. There is no gross pneumothorax. Moderate predominantly left basilar opacities. No gross pleural effusion. XR/XR chest 1V IMPRESSION: Moderate predominantly left basilar opacities. This study was presented today, 04/20/2024, for interpretation. Stat results provided at this time as requested by referring provider. Electronically signed by: Rachna Marie MD 04/20/2024 12:42 PM NIC
--- NOTE | ~2024-04-12 | CT_ITS ---
EXAMINATION: CT ABDOMEN AND PELVIS WITHOUT CONTRAST CLINICAL INFORMATION: Abdominal distention, absent bowel sounds, vomiting COMPARISON: Renal ultrasound 02/11/2024 TECHNIQUE: Multidetector volumetric imaging was performed from the superior aspect of the liver through the pubic symphysis. Sagittal and coronal reformatted images were obtained on the technologist's workstation. This CT examination was performed using dose optimization techniques as appropriate, variously including the following: *Automated exposure control *Adjustment of mA and/or kV according to patient size (this includes techniques or standardized protocols for targeted exams where dose is matched to indication/reason for exam; i.e. extremities or head) *Use of iterative reconstruction technique DLP: 790 mGy-cm FINDINGS: LUNG BASES: Mild bronchial wall thickening and atelectasis in lung bases. Enlarged heart. Cardiac pacer leads. Aortic valve calcifications LIVER, GALLBLADDER, AND BILIARY TREE: The liver is normal in size, shape, and attenuation. No focal hepatic lesion or biliary ductal dilatation is present. The gallbladder is unremarkable with no evidence of radiopaque gallstones, gallbladder wall thickening, or obvious pericholecystic inflammatory changes. PANCREAS: Unremarkable. SPLEEN: Unremarkable. ADRENAL GLANDS: Unremarkable. KIDNEYS AND URETERS: The kidneys are normal in size, shape, and attenuation. No hydronephrosis, hydroureter, or calculi seen. No perinephric stranding. BLADDER: Unremarkable. GASTROINTESTINAL TRACT: The stomach is distended with debris and gas. No bowel obstruction. Colonic diverticulosis. ABDOMINAL WALL: Small umbilical hernia. LYMPH NODES: Normal. VASCULAR: Atherosclerotic disease throughout the abdominal aorta and branch vessels. Right external iliac arterial stent. PELVIC VISCERA: Unremarkable. Peritoneum: Moderate ascites. OSSEOUS STRUCTURES: Advanced degenerative disease at L2-L3. Degenerative changes in the pubic symphysis. CT/CT abdomen pelvis wo IV con IMPRESSION: 1. No bowel obstruction. 2. Moderate ascites. 3. Colonic diverticulosis. 4. Cholelithiasis. Fleischner guidelines were followed. Electronically signed by: Sebastián Venegas MD 04/15/2024 10:34 PM EDT
--- NOTE | ~2024-04-12 | US_ITS ---
Ultrasound paracentesis History: Ascites. Risks and benefits and possible complications were discussed with the patient and consent form was signed. A safe pocket of ascitic fluid was identified using ultrasound guidance, and the overlying skin was marked. The abdomen prepped and draped in sterile fashion. 1% lidocaine was used as a local anesthetic. Using ultrasound guidance, a 5 fr catheter was placed into the ascitic pocket. 2.0 liters of valarie fluid was removed passively. The catheter was then removed. A few event representative images from before and after the examination were obtained. The procedure was performed by Holger Sheppard PA-C and supervised by Dr. Currie. US/US paracentesis abd w/image Impression: Ultrasound-guided paracentesis as described above. No immediate complications Electronically signed by: Jeremy Saha MD 04/20/2024 01:44 PM [facility]
--- NOTE | ~2024-04-12 | US_ITS ---
ULTRASOUND GUIDED PARACENTESIS HISTORY: Ascites. Therapeutic drainage. TECHNIQUE: Risks and benefits and possible complications were discussed with the patient and consent form was signed. A safe pocket of ascitic fluid was identified using ultrasound guidance, and the overlying skin was marked. The abdomen prepped and draped in sterile fashion. 1% lidocaine was used as a local anesthetic. Using ultrasound guidance, a 5 fr catheter was placed into the ascitic pocket. 4.5 liters of non-clotting, blood-tinged fluid was removed passively. The catheter was then removed. A few inbound sales representative images from before and after the examination were obtained. The procedure was performed by Holger Sheppard PA-C and supervised by Dr. Briscoe. US/US paracentesis abd w/image IMPRESSION: Ultrasound-guided paracentesis as described above. No immediate complications Electronically signed by: Wily Briscoe MD 04/23/2024 04:36 PM NIC
--- NOTE | ~2024-04-12 | US_ITS ---
ULTRASOUND GUIDED PARACENTESIS HISTORY: Ascites. Therapeutic drainage. TECHNIQUE: Risks and benefits and possible complications were discussed with the patient and consent form was signed. A safe pocket of ascitic fluid was identified using ultrasound guidance, and the overlying skin was marked. The abdomen prepped and draped in sterile fashion. 1% lidocaine was used as a local anesthetic. Using ultrasound guidance, a 5 fr catheter was placed into the ascitic pocket. 2.8 liters of yellow fluid was removed passively. The catheter was then removed. A few wire rope sales representative images from before and after the examination were obtained. The procedure was performed by Holger Sheppard PA-C and supervised by Dr. Briscoe. US/US paracentesis abd w/image IMPRESSION: Ultrasound-guided paracentesis as described above. No immediate complications Electronically signed by: Wily Briscoe MD 05/10/2024 03:50 PM NIC
--- NOTE | ~2024-04-12 | US_ITS ---
ULTRASOUND GUIDED PARACENTESIS HISTORY: Ascites. LIBRA. Diagnostic drainage. TECHNIQUE: Risks and benefits and possible complications were discussed with the patient and consent form was signed. A safe pocket of ascitic fluid was identified using ultrasound guidance, and the overlying skin was marked. The abdomen prepped and draped in sterile fashion. 1% lidocaine was used as a local anesthetic. Using ultrasound guidance, a 5 fr catheter was placed into the ascitic pocket. 2.0 liters of yellow fluid was removed passively. The catheter was then removed. A few community health program representative images from before and after the examination were obtained. The procedure was performed by Holger Sheppard PA-C and supervised by Dr. Briscoe. US/US paracentesis abd w/image IMPRESSION: Ultrasound-guided paracentesis as described above. No immediate complications Electronically signed by: Wily Briscoe MD 04/23/2024 11:19 AM [facility]
--- NOTE | 2024-04-12 10:00 | ECG_ITS ---
Test Reason : SOB Blood Pressure : / mmHG Vent. Rate : 065 BPM Atrial Rate : 065 BPM P-R Int : 126 ms QRS Dur : 140 ms QT Int : 444 ms P-R-T Axes : 000 175 022 degrees QTc Int : 461 ms AV dual-paced rhythm Biventricular pacemaker detected Abnormal ECG When compared with ECG of 18-FEB-2024 14:46, No significant changes seen Referred By: Generic ED Physician Electronically Signed By:EDISON HOWARD
--- NOTE | 2024-04-12 10:10 | ED_ITS ---
HPI - General Adult General Chief complaint: General Medical Stated complaint: Diff breathing, filled with fluid Time Seen by Provider: 04/12/24 10:10 Source: patient Mode of arrival: ambulatory Limitations: no limitations History of Present Illness ED Provider: Jose Miguel JACQUES narrative: Patient is an 83-year-old male with history of cardiac arrest May, HFrEF, CKD 3, afib on Xarelto, CAD, biventricular ICD, RBBB, PVD, asthma, history of torsades presenting to the emergency department with complaint of worsening shortness of breath, dyspnea on exertion, and pitting edema. Discharged from inpatient stay on 02/20 at weight of 169lbs, states this am was 192 lbs. Has been taking his medications as prescribed, currently on 100mg torsemide daily. Denies chest pain or palpitations. Denies fevers. Cough occasionally productive of yellow sputum. MD complaint: dyspnea Onset (ago): day(s) Relieving factors: rest Exacerbating factors: movement Associated symptoms: cough and shortness of breath Treatments prior to arrival: none Related Data Home Medications ?Medication ?Instructions ?Recorded ?Confirmed cilostazol 50 mg tablet 50 mg PO BID 06/18/21 04/12/24 finasteride 5 mg tablet 5 mg PO DAILY@0900 06/18/21 04/12/24 pantoprazole 40 mg tablet,delayed 40 mg PO DAILY@0630 06/18/21 04/12/24 release allopurinol 100 mg tablet 100 mg PO DAILY@0900 10/27/23 04/12/24 ferrous sulfate 325 mg (65 mg 325 mg PO DAILY@0600 02/09/24 04/12/24 iron) tablet,delayed release lorazepam 0.5 mg tablet 0.5 mg PO DAILY PRN Anxiety 03/04/24 04/12/24 levothyroxine 88 mcg tablet 88 mcg DAILY@0600 04/12/24 04/12/24 metolazone 2.5 mg tablet 2.5 mg PO DAILY PRN Edema 04/12/24 04/12/24 Previous Rx's ?Medication ?Instructions ?Recorded magnesium oxide 400 mg PO BID 90 days #180 tabs 12/08/23 amiodarone 200 mg tablet 200 mg PO DAILY@1700 #90 tabs 03/18/24 rivaroxaban 15 mg tablet (Xarelto) 15 mg PO DAILY@1700 #90 tabs 03/22/24 torsemide 20 mg tablet 80 mg (4 x 20 mg) PO DAILY 30 days 03/22/24 #120 tabs gabapentin 600 mg tablet 600 mg PO BEDTIME 90 days #90 tabs 03/23/24 atorvastatin 40 mg tablet 40 mg PO BEDTIME #90 tabs 04/09/24 potassium chloride 20 mEq 40 meq (2 x 20 mEq) PO DAILY #180 04/09/24 tablet,extended tabs release(part/cryst) (Klor-Con M) Allergies Allergy/AdvReac Type Severity Reaction Status Date / Time doxycycline Allergy Unknown Unknown Verified 04/12/24 09:57 narcotics AdvReac Nausea and Uncoded 02/18/24 14:29 Vomiting, hypotensive Review of Systems 2 Review of Systems: As per HPI. Yes all other systems are reviewed and are negative [facility] Past Medical History Medical History Ischemic cardiomyopathy History of torsades de pointes Atherosclerotic cardiovascular disease Elevated serum creatinine Biventricular ICD (implantable cardioverter-defibrillator) in place Syncope RBBB PVD (peripheral vascular disease) Hx of thyroid nodule GERD (gastroesophageal reflux disease) CAD (coronary artery disease) BPH (benign prostatic hyperplasia) Asthma Atrial fibrillation Surgical History Hx of CABG Hx of cardiac cath H/O right knee surgery H/O heart surgery Family History Family History Mother Breast cancer Father Heart attack Brother Stomach cancer Brother Heart disease Social History Social History Household Members: None Housing: House Do you presently have visiting nurse or other home services: No Alcohol intake: former Comment: pt refusing red socks, alarms, and camera Patient Tobacco Use Status: Former Tobacco user Years Smoked: 25 +/- Smoked in Last 30 Days: No Use of substances other than those prescribed or required for medical reasons: No Advance Directives: Yes Advance Directives on File: Yes Advance Directives Date on File: 10/31/23 Do you have a plan to hurt others: No Plan service: Yes Physical Exam ED Vital Signs: Vital Signs - 24 hr 04/12/24 09:54 04/12/24 10:09 04/12/24 11:20 Temperature 98.7 F 96.8 F Pulse Rate 78 71 60 Respiratory Rate 20 18 14 Blood Pressure 115/53 L 128/52 L 127/56 L Pulse Oximetry 100 100 100 Oxygen Delivery Method Room Air Room Air Room Air 04/12/24 12:59 04/12/24 14:19 Temperature 96.9 F Pulse Rate 60 62 Respiratory Rate 13 14 Blood Pressure 112/55 L 116/55 L Pulse Oximetry 99 100 Oxygen Delivery Method Room Air Room Air BMI result Body Mass Index 33.2 Vital signs have been reviewed and appear to be correct. Blood pressure normal. Heart rate normal. Respiratory rate normal. Temperature normal. Oxygen saturation normal. Const General: cooperative, no acute distress, alert and awake Orientation/consciousness: patient oriented x3 HENMT Head: Yes normocephalic Ears: hearing grossly normal bilaterally and external ears normal General nose exam: Normal external nose present Mouth: Normal oral and palatal mucosa present Throat: Yes uvula midline Eyes Pupils: Equal, round and reactive pupils present Neck Neck: Yes normal visual inspection, Yes full ROM, Yes trachea midline and Yes supple Resp Effort & Inspection: no retractions and no use of accessory muscles Auscultation: wheezes expiratory wheezes and throughout and diminished lung sounds bilateral Cardio Rate: regular rate Rhythm: regular rhythm Heart sounds: S1 normal heart sound present and S2 normal heart sound present Peripheral pulses: Peripheral pulses 2+ throughout GI Inspection: Yes distended Palpation (GI): Soft to palpation and nontender Auscultation: normoactive bowel sounds General: Yes no CVA tenderness Back/Spine/Pelvis Back: no CVA tenderness Skin Other: skin tears bilateral forearms dressed by RN daughter General skin exam: elasticity normal and turgor normal Neuro General: patient oriented x3, tone normal and moves all extremities Cranial nerves: Yes Equal, round and reactive pupils present Extrem Right lower extremity: ankle Details: edema Details: pitting and 3+ and foot Details: vascular exam Details: dorsalis pedis pulse present and posterior tibial pulse present Left lower extremity: ankle Details: pitting edema Details: pitting and 3+ and foot Details: vascular exam Details: dorsalis pedis pulse present and posterior tibial pulse present Medications Administered Generic Name Dose Route Start Last Admin Trade Name Freq PRN Reason Stop Dose Admin Bumetanide 25 mg/ IV 100 mls @ 1 mls/hr 04/12/24 15:00 04/12/24 16:06 Miscellaneous Supplies IVCONT 0.25 mg/hr .Q24H EDVIN 1 mls/hr Administration 0.25 MG/HR Sodium Chloride 3 ml 04/12/24 16:00 04/12/24 16:10 0.9 % Sodium Chloride Flush 3 Ml Syringe IVFLUSH Not Given QSHIFT EDVIN Discontinued Medications Generic Name Dose Route Start Last Admin Trade Name Freq PRN Reason Stop Dose Admin Bumetanide 1 mg 04/12/24 10:54 04/12/24 11:20 Bumetanide 1 Mg/4 Ml Vial IVPUSH 04/12/24 10:55 1 mg ONCE ONE Administration Protocol Medical Decision Making Medical Decision Making [facility] Narrative: Patient is an 83-year-old male with history of cardiac arrest May, HFrEF, CKD 3, afib on Xarelto, CAD, biventricular ICD, RBBB, PVD, asthma, history of torsades presenting to the emergency department with complaint of worsening shortness of breath, dyspnea on exertion, and pitting edema. On exam patient is awake, A+Ox3, VS WNL, afebrile, normal neurological exam without focal deficits, physical exam findings as above. Given reported symptoms and physical exam findings, initial differential includes acute CHF exacerbation, electrolyte abnormality, anemia, pneumonia. Labs notable for chronic anemia, no leukocytosis, hyponatremia, elevated BNP and troponin. X-ray chest notable for interstitial pulmonary edema. My interpretation is in agreement with the radiologist's interpretation. No delta on repeat trop. Viral serology negative. Feel patient requires admission for decompensated HF. Differential Diagnosis Differential Diagnoses: The differential diagnosis associated with the presentation includes As per [facility] Admission/Observation Consideration of admission/observation: Escalation of care including admission/observation considered Lab Data [facility] Lab Attestation statement: I reviewed the patient's lab results. As per [facility] 04/12/24 10:15 04/12/24 10:15 Labs: Lab Results 04/12/24 04/12/24 04/12/24 Range/Units 10:15 10:55 11:28 WBC 9.7 (4.8-10.8) X10*3/uL RBC 2.87 L D (4.60-5.80) X10*6/uL Hgb 8.2 L (14.0-18.0) g/dl Hct 24.8 L (42.0-52.0) % MCV 86.4 (80.0-98.0) fL MCH 28.6 (27.0-33.0) pg MCHC 33.1 (31.0-36.0) g/dl RDW 24.7 H (11.0-16.0) % Plt Count 353 (160-400) X10*3/uL MPV 9.9 (9.4-12.4) fL Immature Gran % (Auto) 1.1 H (0.0-0.4) % Neut % (Auto) 79.8 H (45-73) % Lymph % (Auto) 9.5 L (20-40) % [place] % (Auto) 7.8 (2-11) % Eos % (Auto) 1.4 (0-4) % Baso % (Auto) 0.4 (0-2) % Lymph # (Auto) 0.9 L (1.2-4.9) X10*3/uL [place] # (Auto) 0.8 (0.1-1.2) X10*3/uL Eos # (Auto) 0.1 (0.0-0.4) X10*3/uL Baso # (Auto) 0.0 (0.0-0.2) X10*3/uL Abs Immat Gran (auto) 0.11 H (0.00-0.03) X10*3/uL Absolute Neuts (auto) 7.7 (2.0-8.3) x10*3/uL Absolute Nucleated RBC 0.000 (0.0-0.012) X10*3/uL Nucleated RBC % (auto) 0.0 (0.0-0.2) /100WBC PT 33.4 H (10.9-12.4) SEC INR 2.9 H (0.9-1.1) APTT 42.9 H (26.0-36.8) SEC VBG pH 7.41 (7.32-7.43) VBG pCO2 33 mmHg VBG pO2 44 mmHg VBG HCO3 21 L (22-26) mmol/L VBG O2 Saturation 60.0 % VBG Base Excess -2.3 mmol/L Sodium 129 L (135-145) mmol/L Potassium 5.0 D (3.3-5.1) mmol/L Chloride 96 (96-108) mmol/L Carbon Dioxide 22 (22-29) mmol/L Anion Gap 16 (12-20) BUN 94 H (9-16) mg/dL Creatinine 2.93 H (0.5-1.4) mg/dL Estim Creat Clear Calc 19.7 Estimated GFR 21 Random Glucose 143 H (60-115) mg/dL Calcium 8.4 (8.4-10.2) mg/dL Magnesium 2.0 (1.6-2.6) mg/dL Troponin I High Sens 278.5 H* (<3.5-35.0) ng/L B-Natriuretic Peptide 1522 H (<100) pg/mL Influenza Type A (PCR) NEGATIVE (Negative) Influenza Type B (PCR) NEGATIVE (Negative) RSV RNA Qual (PCR) NEGATIVE (Negative) SARS-CoV-2 RNA (RT-PCR) NEGATIVE (Negative) 04/12/24 Range/Units 12:49 WBC (4.8-10.8) X10*3/uL RBC (4.60-5.80) X10*6/uL Hgb (14.0-18.0) g/dl Hct (42.0-52.0) % MCV (80.0-98.0) fL MCH (27.0-33.0) pg MCHC (31.0-36.0) g/dl RDW (11.0-16.0) % Plt Count (160-400) X10*3/uL MPV (9.4-12.4) fL Immature Gran % (Auto) (0.0-0.4) % Neut % (Auto) (45-73) % Lymph % (Auto) (20-40) % [place] % (Auto) (2-11) % Eos % (Auto) (0-4) % Baso % (Auto) (0-2) % Lymph # (Auto) (1.2-4.9) X10*3/uL [place] # (Auto) (0.1-1.2) X10*3/uL Eos # (Auto) (0.0-0.4) X10*3/uL Baso # (Auto) (0.0-0.2) X10*3/uL Abs Immat Gran (auto) (0.00-0.03) X10*3/uL Absolute Neuts (auto) (2.0-8.3) x10*3/uL Absolute Nucleated RBC (0.0-0.012) X10*3/uL Nucleated RBC % (auto) (0.0-0.2) /100WBC PT (10.9-12.4) SEC INR (0.9-1.1) APTT (26.0-36.8) SEC VBG pH (7.32-7.43) VBG pCO2 mmHg VBG pO2 mmHg VBG HCO3 (22-26) mmol/L VBG O2 Saturation % VBG Base Excess mmol/L Sodium (135-145) mmol/L Potassium (3.3-5.1) mmol/L Chloride (96-108) mmol/L Carbon Dioxide (22-29) mmol/L Anion Gap (12-20) BUN (9-16) mg/dL Creatinine (0.5-1.4) mg/dL Estim Creat Clear Calc Estimated GFR Random Glucose (60-115) mg/dL Calcium (8.4-10.2) mg/dL Magnesium (1.6-2.6) mg/dL Troponin I High Sens 301.1 H* (<3.5-35.0) ng/L B-Natriuretic Peptide (<100) pg/mL Influenza Type A (PCR) (Negative) Influenza Type B (PCR) (Negative) RSV RNA Qual (PCR) (Negative) SARS-CoV-2 RNA (RT-PCR) (Negative) Independent Interpretation I performed an independent interpretation of an: Plain X-Ray Interpretation: Pulmonary edema on CXR. Radiology Impression Discussion of test interpretation with radiology: I have reviewed the radiologist's reading. Radiologist Impression: XR/XR chest 1V IMPRESSION: Findings are suggestive of interstitial pulmonary edema, though an atypical infectious/inflammatory process should be clinically correlated. No dense consolidation or pleural effusion. Independent Historian Clinical information obtained from an independent historian. History obtained from or confirmed by: Other (daughter) External Record Review External record reviewed: Inpatient record, Office record and Outpatient record Discharge Plan Discharge Clinical Impression: Heart failure, chronic, with acute decompensation Patient Disposition: Admitted As Inpatient
[2024-04-12 10:19] LABS: MANUAL DIFF FLAG NO
[2024-04-12 10:22] LABS: Basophils Percent Auto 0.4 % (0-2); Eosinophils Absolute Auto 0.1 X10*3/uL (0.0-0.4); Eosinophils Percent Auto 1.4 % (0-4); Hematocrit 24.8 % (42.0-52.0); Hemoglobin 8.2 g/dl (14.0-18.0); Imm Gran Abs Auto 0.11 X10*3/uL (0.00-0.03); Imm Gran Pct Auto 1.1 % (0.0-0.4); Lymphocytes Absolute Auto 0.9 X10*3/uL (1.2-4.9); Lymphocytes Percent Auto 9.5 % (20-40); Mean Corpuscular HGB Conc 33.1 g/dl (31.0-36.0); Mean Corpuscular Hemoglobin 28.6 pg (27.0-33.0); Mean Corpuscular Volume 86.4 fL (80.0-98.0); Mean Platelet Volume 9.9 fL (9.4-12.4); Monocytes Absolute Auto 0.8 X10*3/uL (0.1-1.2); Monocytes Percent Auto 7.8 % (2-11); Neutrophils Absolute Auto 7.7 x10*3/uL (2.0-8.3); Neutrophils Percent Auto 79.8 % (45-73); Platelet Count 353 X10*3/uL (160-400); Red Blood Count 2.87 X10*6/uL (4.60-5.80); Red Cell Distribution Width 24.7 % (11.0-16.0); White Blood Count 9.7 X10*3/uL (4.8-10.8)
[2024-04-12 10:27] LABS: INTERNATIONAL NORM RATIO 2.9 (0.9-1.1); Prothrombin Time 33.4 SEC (10.9-12.4)
--- NOTE | 2024-04-12 10:27 | PC.NURSE ---
xray being completed at this time.
[2024-04-12 10:29] LABS: Partial Thromboplastin Time 42.9 SEC (26.0-36.8)
[2024-04-12 10:44] LABS: B Type Natriuretic Peptide 1522 pg/mL (<100)
[2024-04-12 10:48] LABS: Anion Gap 16 (12-20); Blood Urea Nitrogen 94 mg/dL (9-16); Calcium 8.4 mg/dL (8.4-10.2); Carbon Dioxide 22 mmol/L (22-29); Chloride 96 mmol/L (96-108); Creatinine Clr Calc Pharmacy 19.7; Estimated Glomerular Filt Rate 21; Glucose Random 143 mg/dL (60-115); Sodium 129 mmol/L (135-145)
--- NOTE | 2024-04-12 10:52 | PC.NURSE ---
labs obtained/sent to lab. plan of care ongoing.
[2024-04-12 10:56] LABS: Troponin-I High Sensitivity 278.5 ng/L (<3.5-35.0)
[2024-04-12 10:59] LABS: Venous Blood Gas Refer to POC result
[2024-04-12 11:00] LABS: VBG Base Excess -2.3 mmol/L; VBG HCO3 21 mmol/L (22-26); VBG pCO2 33 mmHg; VBG pH 7.41 (7.32-7.43); VBG pO2 44 mmHg
[2024-04-12] MEDS: Bumetanide 1 MG/4 ML VIAL IVPUSH (11:20)
--- NOTE | 2024-04-12 11:28 | PC.NURSE ---
vss and up to date. a-paced nsr on the electronic device monitor. pt remains on RA w/o difficulty - no sob/wob noted. respirations remain even/unlabored. pt sitting upright to promote patent airway. medication administered per provider order. effectiveness pending. swabs obtained/sent to lab. plan of care ongoing. call rosario placed within reach.
[2024-04-12 12:31] LABS: Influenza A PCR NEGATIVE (Negative); Influenza B PCR NEGATIVE (Negative); Resp Syncy Virus RNA Qual PCR NEGATIVE (Negative); SARS COV2 PCR INHOUSE NEGATIVE (Negative)
--- NOTE | 2024-04-12 12:52 | PC.NURSE ---
repeat troponin obtained/sent to lab. pt remains in no respiratory distress at this time. no sob/wob noted. respirations remain even/unlabored. plan of care ongoing. call rosario placed within reach.
[2024-04-12 13:19] LABS: Troponin-I High Sensitivity 301.1 ng/L (<3.5-35.0)
--- NOTE | 2024-04-12 14:17 | PM.IMHP ---
History of Present Illness Date of Service: 04/12/24 Attending physician on admission: Salvatore [facility] Chief Complaint: dyspnea, LE edema, weight gain Patient is an 83-year-old male with a past medical history significant for cardiac arrest (03/2023) s/p biventricular ICD in place, HFrEF, CKD3, paroxysmal a fib on xarelto, CAD, PVD unspecified asthma, GERD, gout and KEVIN on nasal CPAP presented to the ED today with worsening shortness of breath, dyspnea, weight gain and pedal edema for the past few weeks. He was discharged on 02/20 for a CHF exacerbation and spironolactone and metolazone. Outpatient follow-up the discontinue the spironolactone due to hypotension however he continues to take Bumex 4 mg daily and metolazone 2.5 mg daily as needed. He reports he has been taking his medications as prescribed however his symptoms persist. He reports he went from 169 lb to 193 lb. He did have a productive cough this morning with white sputum. No headache, fever, chills, nausea, vomiting, constipation, diarrhea, nasal congestion or any sick contacts recently. Review of Systems Constitutional: Constitutional: Denies body ache(s), Denies chills, Reports fatigue, Denies fever(s) and Denies headache(s) Eyes: Eyes: Denies change in vision ENT: Denies headache(s), Denies nasal congestion and Denies nasal discharge Cardiovascular: Cardiovascular: Denies rapid heart rate, Reports leg edema, Reports dyspnea and Reports dyspnea on exertion Respiratory: Respiratory: Reports cough, Denies hemoptysis, Reports dyspnea and Reports dyspnea on exertion Gastrointestinal: Gastrointestinal: Denies constipation, Denies diarrhea, Denies nausea and Denies vomiting Genitourinary: Genitourinary: Denies dysuria and Denies urinary frequency Musculoskeletal: Musculoskeletal: Denies muscle weakness Integumentary/Breasts: Skin/Breast: Denies rash Neurologic: Denies confusion and Denies headache(s) Psychiatric: Psychiatric: Denies confusion Endocrine: Endocrine: Reports fatigue [facility] Medical History Ischemic cardiomyopathy History of torsades de pointes Atherosclerotic cardiovascular disease Elevated serum creatinine Biventricular ICD (implantable cardioverter-defibrillator) in place Syncope RBBB PVD (peripheral vascular disease) Hx of thyroid nodule GERD (gastroesophageal reflux disease) CAD (coronary artery disease) BPH (benign prostatic hyperplasia) Asthma Atrial fibrillation Family History Mother Breast cancer Father Heart attack Brother Stomach cancer Brother Heart disease Surgical History Hx of CABG Hx of cardiac cath H/O right knee surgery H/O heart surgery Social History Household Members: None Housing: House Do you presently have visiting nurse or other home services: No Alcohol intake: former Comment: pt refusing red socks, alarms, and camera Patient Tobacco Use Status: Former Tobacco user Years Smoked: 25 +/- Smoked in Last 30 Days: No Use of substances other than those prescribed or required for medical reasons: No Advance Directives: Yes Advance Directives on File: Yes Advance Directives Date on File: 10/31/23 Do you have a plan to hurt others: No Plan service: Yes Meds Allergies Allergy/AdvReac Type Severity Reaction Status Date / Time doxycycline Allergy Unknown Unknown Verified 04/12/24 09:57 narcotics AdvReac Nausea and Uncoded 02/18/24 14:29 Vomiting, hypotensive Home Medications ?Medication ?Instructions ?Recorded ?Confirmed ?Last Taken ?Type cilostazol 50 mg tablet 50 mg PO BID 06/18/21 03/04/24 02/18/24 History finasteride 5 mg tablet 5 mg PO DAILY@0906/18/21 03/04/24 02/18/24 History pantoprazole 40 mg tablet,delayed 40 mg PO BID@0630,1630 06/18/21 03/04/24 02/18/24 History release allopurinol 100 mg tablet 100 mg PO DAILY@89910/27/23 03/04/24 02/18/24 History ferrous sulfate 325 mg (65 mg 325 mg PO DAILY@0602/09/24 03/04/24 02/18/24 History iron) tablet,delayed release lorazepam 0.5 mg tablet 0.5 mg PO DAILY PRN 03/04/24 03/04/24 Unknown History bumetanide 1 mg tablet 1 mg PO DAILY 04/12/24 Unknown History levothyroxine 88 mcg tablet 88 mcg QAM 04/12/24 Unknown History metoprolol tartrate 25 mg tablet 12.5 mg BID 04/12/24 Unknown History potassium chloride 20 mEq 40 meq PO DAILY 04/12/24 Unknown History tablet,extended release(part/cryst) spironolactone 25 mg tablet 25 mg PO DAILY 04/12/24 Unknown History Physical Exam Vital Signs and Narrative: Vital Signs: Last Vital Signs Temp 96.8 F 04/12/24 11:20 Pulse 60 04/12/24 12:59 Resp 13 04/12/24 12:59 BP 112/55 L 04/12/24 12:59 Pulse Ox 99 04/12/24 12:59 O2 Del Method Room Air 04/12/24 12:59 BMI result Body Mass Index 33.2 General: AOx3, no acute distress Resp: fine crackles LLL, congested throughout, no wheezing CVS: S1, S2, RRR GI: +BS, NT, distended Skin: Warm, dry Extremities: 2-3+ pitting edema bilateral lower extremities Psych: Appropriate affect Const: General: No confusion Orientation/consciousness: No confusion Neuro: General: No confusion Results Labs 04/12/24 10:15 04/12/24 10:15 Labs: Laboratory Results - last 24 hr 04/12/24 04/12/24 04/12/24 10:15 10:55 11:28 MCV 86.4 MCH 28.6 MCHC 33.1 RDW 24.7 H Plt Count 353 MPV 9.9 Immature Gran % (Auto) 1.1 H Neut % (Auto) 79.8 H Lymph % (Auto) 9.5 L [place] % (Auto) 7.8 Eos % (Auto) 1.4 Baso % (Auto) 0.4 Lymph # (Auto) 0.9 L [place] # (Auto) 0.8 Eos # (Auto) 0.1 Baso # (Auto) 0.0 Abs Immat Gran (auto) 0.11 H Absolute Neuts (auto) 7.7 Absolute Nucleated RBC 0.000 Nucleated RBC % (auto) 0.0 PT 33.4 H INR 2.9 H APTT 42.9 H VBG pH 7.41 VBG pCO2 33 VBG pO2 44 VBG HCO3 21 L VBG O2 Saturation 60.0 VBG Base Excess -2.3 Anion Gap 16 Estim Creat Clear Calc 19.7 Estimated GFR 21 Random Glucose 143 H Calcium 8.4 Troponin I High Sens 278.5 H* B-Natriuretic Peptide 1522 H Influenza Type A (PCR) NEGATIVE Influenza Type B (PCR) NEGATIVE RSV RNA Qual (PCR) NEGATIVE SARS-CoV-2 RNA (RT-PCR) NEGATIVE 04/12/24 12:49 MCV MCH MCHC RDW Plt Count MPV Immature Gran % (Auto) Neut % (Auto) Lymph % (Auto) [place] % (Auto) Eos % (Auto) Baso % (Auto) Lymph # (Auto) [place] # (Auto) Eos # (Auto) Baso # (Auto) Abs Immat Gran (auto) Absolute Neuts (auto) Absolute Nucleated RBC Nucleated RBC % (auto) PT INR APTT VBG pH VBG pCO2 VBG pO2 VBG HCO3 VBG O2 Saturation VBG Base Excess Anion Gap Estim Creat Clear Calc Estimated GFR Random Glucose Calcium Troponin I High Sens 301.1 H* B-Natriuretic Peptide Influenza Type A (PCR) Influenza Type B (PCR) RSV RNA Qual (PCR) SARS-CoV-2 RNA (RT-PCR) ECG Interpretation: no change from previous Imaging Radiologist's Impressions: Impressions Chest X-Ray 04/12/24 10:25 IMPRESSION: Findings are suggestive of interstitial pulmonary edema, though an atypical infectious/inflammatory process should be clinically correlated. No dense consolidation or pleural effusion. Electronically signed by: Pam Workman MD 04/12/2024 11:11 AM EDT Assessment and Plan (1) Heart failure, chronic, with acute decompensation: Status: Acute (2) LIBRA (acute kidney injury): Status: Acute (3) Hyponatremia: Status: Acute Plan Patient is an 83-year-old male with a past medical history significant for cardiac arrest (03/2023) s/p biventricular ICD in place, HFrEF, CKD3, paroxysmal a fib on xarelto, CAD, PVD, HLD, BPH, unspecified asthma, GERD, gout and KEVIN on nasal CPAP presented to the ED today with worsening shortness of breath, dyspnea, weight gain and pedal edema for the past few weeks. He was discharged on 02/20 for a CHF exacerbation and new diuretics were added. He returns again today for CHF exacerbation. acute CHF exacerbation - chest x-ray with interstitial edema - BNP elevated at 1522 - troponin chronically elevated but stable - EKG stable from previous - given 1mg IV bumex in ED, will start bumex drip 0.25mg/hr - monitor I's and O's - daily weights - BNP tomorrow LIBRA/CKD - Cr 2.93 - diuresis as above - continue to monitor BMP Hypervolemic hyponatremia - diuresis as above - continue to monitor BMP Chronic anemia - stable, continue iron - monitor CBC Paroxysmal AFib - currently controlled - continue Xarelto and amiodarone BPH - continue finasteride Unspecified asthma - no acute exacerbation GERD - continue pantoprazole HLD - continue atorvastatin PAD - continue cilostazol Gout - continue allopurinol KEVIN on CPAP - CPAP at night Full code VTE prophylaxis: Xarelto Patient with acute CHF exacerbation with failed outpatient treatment after recent admission on 02/21/2024, admission required for IV diuresis and monitoring for at least 2 midnight stay. Quality Stroke Does the patient have a stroke diagnosis?: No VTE Prior VTE?: No VTE Risk Level:: Medical - moderate - high VTE Device Contraindication: Treatment Not Indicated VTE Drug Contraindication: N/A - Med Ordered
--- NOTE | 2024-04-12 15:47 | PHA.MEDREC ---
Pharmacy Consult ? Medication Reconciliation Pharmacy has completed the medication reconciliation. Spoke to patient and patients at bedside to confirm med list. Patient's had a list of patients medication with her. states patient is no longer taking Spironolactone 25 mg, Metoprolol tart 12.5 and bumetanide 2 mg. utilized list and claims to confirm med list.
[2024-04-12] MEDS: Bumetanide 25 MG in Container,Empty 0 ML IVCONT (16:06)
[2024-04-12 18:02] LABS: Troponin-I High Sensitivity 291.6 ng/L (<3.5-35.0)
[2024-04-12] MEDS: Amiodarone HCL 200 MG TABLET PO (18:13)
[2024-04-12] MEDS: Rivaroxaban 15 MG TABLET PO (18:42)
[2024-04-12] MEDS: Atorvastatin Calcium 40 MG TABLET PO (22:07)
[2024-04-12] MEDS: 0.9 % Sodium Chloride Flush 3 ML SYRINGE IVFLUSH (22:08)
[2024-04-12] MEDS: cilostazoL 50 MG TABLET PO (22:08)
[2024-04-12] MEDS: Gabapentin 600 MG TABLET PO (22:08)
[2024-04-12] MEDS: Magnesium Oxide 400 MG TABLET PO (22:08)
[2024-04-12] MEDS: LORazepam 0.5 MG TABLET PO (22:10)
[2024-04-13] VITALS (8 sets, daily range): BP systolic 103–117; BP diastolic 44–55; PULSE 61–84; RESP 16–20; TEMP 36.4–37; O2SAT 94–100
[2024-04-13] MEDS: guaiFENesin 100 MG/5 ML 5 ML LIQUID PO ×3 (00:54→20:52)
[2024-04-13 06:21] LABS: MANUAL DIFF FLAG NO
[2024-04-13] MEDS: Pantoprazole Sodium 20 MG TABLET.DR 40 MG PO (06:25)
[2024-04-13] MEDS: Levothyroxine Sodium 88 MCG TABLET PO (06:25)
[2024-04-13] MEDS: Ferrous Sulfate 324 MG TABLET.DR PO (06:25)
[2024-04-13 06:40] LABS: Basophils Percent Auto 0.5 % (0-2); Eosinophils Absolute Auto 0.2 X10*3/uL (0.0-0.4); Eosinophils Percent Auto 2.2 % (0-4); Hemoglobin 7.7 g/dl (14.0-18.0); Imm Gran Abs Auto 0.09 X10*3/uL (0.00-0.03); Imm Gran Pct Auto 1.1 % (0.0-0.4); Lymphocytes Absolute Auto 0.9 X10*3/uL (1.2-4.9); Lymphocytes Percent Auto 10.8 % (20-40); Mean Corpuscular HGB Conc 33.5 g/dl (31.0-36.0); Mean Corpuscular Hemoglobin 28.3 pg (27.0-33.0); Mean Corpuscular Volume 84.6 fL (80.0-98.0); Mean Platelet Volume 10.2 fL (9.4-12.4); Monocytes Absolute Auto 0.9 X10*3/uL (0.1-1.2); Monocytes Percent Auto 11.6 % (2-11); Neutrophils Absolute Auto 5.8 x10*3/uL (2.0-8.3); Neutrophils Percent Auto 73.8 % (45-73); Platelet Count 299 X10*3/uL (160-400); Red Blood Count 2.72 X10*6/uL (4.60-5.80); Red Cell Distribution Width 24.3 % (11.0-16.0); White Blood Count 7.8 X10*3/uL (4.8-10.8)
[2024-04-13 06:44] LABS: B Type Natriuretic Peptide 1445 pg/mL (<100)
[2024-04-13 06:50] LABS: Blood Urea Nitrogen 90 mg/dL (9-16); Calcium 8.4 mg/dL (8.4-10.2); Creatinine Clr Calc Pharmacy 23.3; Estimated Glomerular Filt Rate 25; Glucose Random 126 mg/dL (60-115)
[2024-04-13 07:39] LABS: Anion Gap 18 (12-20); Carbon Dioxide 21 mmol/L (22-29); Chloride 96 mmol/L (96-108); Potassium 2.7 mmol/L (3.3-5.1); Sodium 132 mmol/L (135-145)
[2024-04-13] MEDS: cilostazoL 50 MG TABLET PO ×2 (08:30→20:51)
[2024-04-13] MEDS: Finasteride 5 MG TABLET PO (08:30)
[2024-04-13] MEDS: Potassium Chloride ER 20 MEQ TAB.ER.PRT PO ×2 (08:30→17:54)
[2024-04-13] MEDS: Potassium Chloride ER 20 MEQ TAB.ER.PRT 40 MEQ PO ×2 (08:31→13:51)
[2024-04-13] MEDS: allopurinoL 100 MG TABLET PO (08:31)
[2024-04-13] MEDS: Magnesium Oxide 400 MG TABLET PO (08:31)
[2024-04-13] MEDS: 0.9 % Sodium Chloride Flush 3 ML SYRINGE IVFLUSH ×3 (08:32→20:52)
[2024-04-13] MEDS: Albuterol/Iprat 2.5/0.5MG 3 ML AMPUL.NEB INHALE (09:44)
[2024-04-13 10:06] LABS: Iron 44 mcg/dL (45-160); Percent Iron Saturation 14 % (15-50); Total Iron Binding Capacity 322 mcg/dL (228-428); Unsaturated Iron Binding 278 ug/dL
[2024-04-13 10:22] LABS: Ferritin 131 ng/mL (20-250)
--- NOTE | 2024-04-13 10:25 | P.CONCA_ITS ---
History of Present Illness History of Present Illness Date of Service: 04/13/24 Chief complaint: CHF exacerbation LIBRA Narrative: This is a cardiology consultation regarding congestive heart failure. Patient is well known to us and is generally seen in the clinic. In addition, his diuretics have been adjusted on ongoing basis because of increasing shortness of breath at home. He has an extensive cardiac history including coronary disease, bypass surgery, cardiac arrest in [place] 06/04/2023 with successful resuscitation, ventricular tachycardia in cardiac rehab, hypotension among others. His diuretics have been changed to torsemide and he was reasonably stable on it. However, he has been getting increasingly short of breath with abdominal swelling as well as leg swelling and that led to hospitalization. He has been put on Bumex drip but only at a small dose. He states he is still feels volume overloaded. Breathing is just about the same. No angina. Review of Systems 2 Review of Systems: Yes all other systems are reviewed and are negative Constitutional: Constitutional: Reports as per HPI and Reports no additional constitutional complaints Eyes: Eyes: Reports as per HPI and Denies no additional eye complaints ENT: Denies system reviewed and no additional complaints, except as documented and Reports as per HPI Cardiovascular: Cardiovascular: Reports as per HPI, Reports no additional cardiovascular complaints, Denies acrocyanosis, Denies cool extremities, Denies chest pain, Reports leg edema, Denies lightheadedness, Denies palpitations and Reports dyspnea Respiratory: Respiratory: Reports as per HPI, Denies no additional respiratory complaints and Reports dyspnea Gastrointestinal: Gastrointestinal: Reports as per HPI and Denies no additional gastrointestinal complaints Genitourinary: Genitourinary: Reports no additional male genitourinary complaints and Reports as per HPI Musculoskeletal: Musculoskeletal: Reports no additional musculoskeletal complaints and Reports as per HPI Integumentary/Breasts: Skin/Breast: Reports system reviewed and no additional complaints, except as docu Neurologic: Reports system reviewed and no additional complaints, except as documented and Reports as per HPI Psychiatric: Psychiatric: Reports no additional psychiatric complaints and Reports as per HPI Endocrine: Endocrine: Reports no additional endocrine complaints, Reports as per HPI and Denies palpitations Hematologic/Lymphatic: Hematologic/Lymphatic: Reports no additional hematologic/lymphatic complaints and Reports as per HPI Allergic/Immunologic: Allergic/Immunologic: Reports no additional allergic/immunologic complaints and Reports as per HPI [facility] Past Medical History Medical History Ischemic cardiomyopathy History of torsades de pointes Atherosclerotic cardiovascular disease Elevated serum creatinine Biventricular ICD (implantable cardioverter-defibrillator) in place Syncope RBBB PVD (peripheral vascular disease) Hx of thyroid nodule GERD (gastroesophageal reflux disease) CAD (coronary artery disease) BPH (benign prostatic hyperplasia) Asthma Atrial fibrillation Family History Family History Mother Breast cancer Father Heart attack Brother Stomach cancer Brother Heart disease Surgical History Surgical History Hx of CABG Hx of cardiac cath H/O right knee surgery H/O heart surgery Social History Social History Household Members: None Housing: House Do you presently have visiting nurse or other home services: Yes (cleaning lady) Alcohol intake: former Comment: pt refusing red socks, alarms, and camera Patient Tobacco Use Status: Former Tobacco user Years Smoked: 25 +/- Smoked in Last 30 Days: No Use of substances other than those prescribed or required for medical reasons: No Currently Displaying Signs/Symptoms of Drug Intoxication Withdrawal: No Advance Directives: Yes Advance Directives on File: Yes Advance Directives Date on File: 10/31/23 Do you have a plan to hurt others: No Plan Recently lost weight without trying: No service: Yes Meds Allergies Allergy/AdvReac Type Severity Reaction Status Date / Time doxycycline Allergy Unknown Unknown Verified 04/12/24 09:57 narcotics AdvReac Nausea and Uncoded 02/18/24 14:29 Vomiting, hypotensive Active Medications: Current Medications Acetaminophen (Acetaminophen 325 Mg Tablet) 650 mg PO Q6H PRN PRN Reason: Pain, Mild (Pain Scale 1-3), fever or headache Albuterol/Ipratropium (Albuterol/Iprat 2.5/0.5mg 3 Ml Ampul.Neb) 3 ml INHALE Q4H PRN PRN Reason: Wheezing Last Admin: 04/13/24 09:44 Dose: 3 ml Allopurinol (Allopurinol 100 Mg Tablet) 100 mg PO DAILY@0900 [facility] Last Admin: 04/13/24 08:31 Dose: 100 mg Amiodarone HCl (Amiodarone Hcl 200 Mg Tablet) 200 mg PO DAILY@1700 [facility] Last Admin: 04/12/24 18:13 Dose: 200 mg Atorvastatin Calcium (Atorvastatin Calcium 40 Mg Tablet) 40 mg PO BEDTIME [facility] Last Admin: 04/12/24 22:07 Dose: 40 mg Calcium Carbonate (Calcium Carbonate 750 Mg Tab.Chew) 750 mg PO Q4H PRN PRN Reason: Heartburn Cilostazol (Cilostazol 50 Mg Tablet) 50 mg PO BID [facility] Last Admin: 04/13/24 08:30 Dose: 50 mg Ferrous Sulfate (Ferrous Sulfate 324 Mg Tablet.Dr) 324 mg PO DAILY@0600 [facility] Last Admin: 04/13/24 06:25 Dose: 324 mg Finasteride (Finasteride 5 Mg Tablet) 5 mg PO DAILY@0900 [facility] Last Admin: 04/13/24 08:30 Dose: 5 mg Gabapentin (Gabapentin 600 Mg Tablet) 600 mg PO BEDTIME [facility] Last Admin: 04/12/24 22:08 Dose: 600 mg Guaifenesin (Guaifenesin 100 Mg/5 Ml 5 Ml Liquid) 5 ml PO Q4H PRN PRN Reason: Cough Last Admin: 04/13/24 08:38 Dose: 5 ml Bumetanide 25 mg/ IV (Miscellaneous Supplies) 100 mls @ 1 mls/hr IVCONT .Q24H [facility] Last Admin: 04/12/24 16:06 Dose: 0.25 mg/hr, 1 mls/hr Levothyroxine Sodium (Levothyroxine Sodium 88 Mcg Tablet) 88 mcg PO DAILY@0600 [facility] Last Admin: 04/13/24 06:25 Dose: 88 mcg Lorazepam (Lorazepam 0.5 Mg Tablet) 0.5 mg PO DAILY PRN PRN Reason: Anxiety Last Admin: 04/12/24 22:10 Dose: 0.5 mg Magnesium Hydroxide (Milk Of Magnesia 30 Ml Oral.Susp) 30 ml PO DAILY PRN PRN Reason: Constipation Magnesium Oxide (Magnesium Oxide 400 Mg Tablet) 400 mg PO BID [facility] Last Admin: 04/13/24 08:31 Dose: 400 mg Melatonin (Melatonin 3 Mg Tablet) 6 mg PO BEDTIME PRN PRN Reason: Insomnia Metolazone (Metolazone 5 Mg Tablet) 5 mg PO DAILY PRN PRN Reason: Edema Ondansetron HCl (Ondansetron Hcl 4 Mg/2 Ml Vial) 4 mg IVPUSH Q8H PRN PRN Reason: Nausea and Vomiting Pantoprazole Sodium (Pantoprazole Sodium 20 Mg Tablet.) 40 mg PO DAILY@0630 [facility] Last Admin: 04/13/24 06:25 Dose: 40 mg Potassium Chloride (Potassium Chloride Er 20 Meq Tab.Er.Prt) 40 meq PO DAILY [facility] Last Admin: 04/13/24 08:31 Dose: 40 meq Rivaroxaban (Rivaroxaban 15 Mg Tablet) 15 mg PO DAILY@1700 [facility] Last Admin: 04/12/24 18:42 Dose: 15 mg Sodium Chloride (0.9 % Sodium Chloride Flush 3 Ml Syringe) 3 ml IVFLUSH QSHIFT [facility] Last Admin: 04/13/24 08:32 Dose: 3 ml Home Medications ?Medication ?Instructions ?Recorded ?Confirmed ?Last Taken ?Type cilostazol 50 mg tablet 50 mg PO BID 06/18/21 04/12/24 04/12/24 History finasteride 5 mg tablet 5 mg PO DAILY@0906/18/21 04/12/24 04/12/24 History pantoprazole 40 mg tablet,delayed 40 mg PO DAILY@0630 06/18/21 04/12/24 04/12/24 History release allopurinol 100 mg tablet 100 mg PO DAILY@0910/27/23 04/12/24 04/12/24 History ferrous sulfate 325 mg (65 mg 325 mg PO DAILY@0600 02/09/24 04/12/24 04/12/24 History iron) tablet,delayed release lorazepam 0.5 mg tablet 0.5 mg PO DAILY PRN Anxiety 03/04/24 04/12/24 04/12/24 History levothyroxine 88 mcg tablet 88 mcg DAILY@0600 04/12/24 04/12/24 04/12/24 History metolazone 2.5 mg tablet 2.5 mg PO DAILY PRN Edema 04/12/24 04/12/24 04/12/24 History Physical Exam 2 Vital Signs: Vital Signs: Last Vital Signs Temp 97.5 F 04/13/24 08:00 Pulse 72 04/13/24 09:49 Resp 19 04/13/24 09:49 BP 104/51 L 04/13/24 08:00 Pulse Ox 100 04/13/24 08:00 O2 Del Method CPAP 04/13/24 08:00 BMI result Body Mass Index 33.2 Const: General: comfortable and no acute distress O rientation/consciousness: patient oriented x3 HEENT: Other: Unremarkable Head: Yes normal to inspection Neck: Neck: Yes normal visual inspection Chest: Chest palpation & inspection: normal inspection of the chest Resp: Other: Bilateral rhonchi Cardio: Palpation: normal PMI Heart sounds: S1 normal heart sound present, S2 normal heart sound present, no gallops, no murmurs and no rubs GI: Other: Distended Palpation (GI): Soft to palpation Back/Spine/Pelvis: Other: unremarkable Skin: General skin exam: no rashes or lesions noted Neuro: General: patient oriented x3 Extrem: Other: 2+ edema General: Yes normal to inspection Psych: Mental Status: mental status grossly normal Objective Labs and Meds 04/13/24 06:09 04/13/24 06:09 Lab results: Laboratory Results - last 24 hr 04/12/24 04/12/24 04/12/24 10:15 10:55 11:28 WBC RBC Hgb Hct MCV MCH MCHC RDW Plt Count MPV Immature Gran % (Auto) Neut % (Auto) Lymph % (Auto) [place] % (Auto) Eos % (Auto) Baso % (Auto) Lymph # (Auto) [place] # (Auto) Eos # (Auto) Baso # (Auto) Abs Immat Gran (auto) Absolute Neuts (auto) Absolute Nucleated RBC Nucleated RBC % (auto) PT 33.4 H INR 2.9 H APTT 42.9 H VBG pH 7.41 VBG pCO2 33 VBG pO2 44 VBG HCO3 21 L VBG O2 Saturation 60.0 VBG Base Excess -2.3 Sodium 129 L Potassium 5.0 D Chloride 96 Carbon Dioxide 22 Anion Gap 16 BUN 94 H Creatinine 2.93 H Estim Creat Clear Calc 19.7 Estimated GFR 21 Random Glucose 143 H Calcium 8.4 Magnesium 2.0 Iron TIBC % Saturation Unsat Iron Binding Ferritin Troponin I High Sens 278.5 H* B-Natriuretic Peptide 1522 H Influenza Type A (PCR) NEGATIVE Influenza Type B (PCR) NEGATIVE RSV RNA Qual (PCR) NEGATIVE SARS-CoV-2 RNA (RT-PCR) NEGATIVE 1004/12/24 04/13/24 12:49 17:21 06:09 WBC 7.8 RBC 2.72 L Hgb 7.7 L Hct 23.0 L MCV 84.6 MCH 28.3 MCHC 33.5 RDW 24.3 H Plt Count 299 MPV 10.2 Immature Gran % (Auto) 1.1 H Neut % (Auto) 73.8 H Lymph % (Auto) 10.8 L [place] % (Auto) 11.6 H Eos % (Auto) 2.2 Baso % (Auto) 0.5 Lymph # (Auto) 0.9 L [place] # (Auto) 0.9 Eos # (Auto) 0.2 Baso # (Auto) 0.0 Abs Immat Gran (auto) 0.09 H Absolute Neuts (auto) 5.8 Absolute Nucleated RBC 0.000 Nucleated RBC % (auto) 0.0 PT INR APTT VBG pH VBG pCO2 VBG pO2 VBG HCO3 VBG O2 Saturation VBG Base Excess Sodium 132 L Potassium 2.7 L* D Chloride 96 Carbon Dioxide 21 L Anion Gap 18 BUN 90 H Creatinine 2.48 H Estim Creat Clear Calc 23.3 Estimated GFR 25 Random Glucose 126 H Calcium 8.4 Magnesium Iron 44 L TIBC 322 % Saturation 14 L Unsat Iron Binding 278 Ferritin 131 Troponin I High Sens 301.1 H* 291.6 H* B-Natriuretic Peptide 1445 H Influenza Type A (PCR) Influenza Type B (PCR) RSV RNA Qual (PCR) SARS-CoV-2 RNA (RT-PCR) ECG Interpretation: EKG shows AV dual paced rhythm at 65/Min. Imaging Radiologist's impression: Impressions Chest X-Ray 04/12/24 10:25 IMPRESSION: Findings are suggestive of interstitial pulmonary edema, though an atypical infectious/inflammatory process should be clinically correlated. No dense consolidation or pleural effusion. Electronically signed by: Pam Workman MD 04/12/2024 11:11 AM EDT Assessment and Plan (1) Acute on chronic diastolic (congestive) heart failure: Status: Acute Plan Clinically, volume overloaded. There is elevation of high sensitivity troponins but do not believe this ACS. Cardiac BNP is also chronically high and not too different from before. In the most recent echocardiogram, LVEF is 46%. Basal inferior akinesis. Mild aortic regurgitation; [id number] mitral regurgitation; mild tricuspid regurgitation with mild pulmonary hypertension. In terms of labs, potassium is 2.7. BUN is 19 creatinine is 2.48. His potassium should be aggressively repleted and discussed with Dr. Blas about that. Ensure magnesium level is also optimal with diuretics as there is a history of VT. His Bumex was only at 0.25 mg per hour; once the electrolytes are repleted, we can increase it to 1 milligram/hour. If unable to successfully repeat, consider resuming spironolactone. Previously, because of low blood pressure, lot of his medications were stopped. If necessary, can add metolazone, and we will watch his sodium. Guarded prognosis. Discussed with daughter. Procedures Date of Service Date of Service: 04/13/24
[2024-04-13 13:00] LABS: Folate 13.7 ng/mL (> or = 4.0); Vitamin B12 494 pg/mL (200-900)
--- NOTE | 2024-04-13 13:10 | P.CONNP_ITS ---
History of Present Illness Reason for Consult Consult date: 04/13/24 Chief Complaint Chief complaint: CHF exacerbation LIBRA History of Present Illness Narrative: 83 y/o male with medical history of cardiac arrest (03/2023), biventricular ICD in place, HFrEF, CKD3, paroxysmal afib on xarelto, CAD, PVD, asthma, GERD, gout, KEVIN on CPAP. ED on 04/12 with dyspnea, weight gain, pedal edema for past few weeks. reportedly gained 24lbs over that time frame. States he was taking his diuretics as prescribed (4mg bumex daily and metolazone 2.5mg daily PRN, spironolactone had recently been d/c'd because of hypotension). Referred to nephrology for LIBRA on CKD3 in setting of CHF exacerbation. GFR in 20s Creatinine trend: 01/12/24 2.20 01/19/24 1.83 02/05/24 1.82 02/09/24 2.21 02/18/24 2.02 02/19/24 1.90 02/20/24 1.65 02/21/24 1.75 02/24/24 2.61 02/26/24 2.64 03/03/24 2.31 03/22/24 2.94 04/01/24 2.24 04/12/24 2.93 04/13/24 2.48 Urine bland 03/03/24 Renal US 02/11/24 unremarkable without hydronephrosis. patient has had mild hyponatremia since 02/24/24 hypokalemia today of 2.7 (oral replacement) after starting bumex gtt has worsening chronic normocytic anemia ( since at least September 2023, he is on iron supplementation) Patient states his breathing is comfortable states his legs still feel somewhat swollen states he is urinating regularly/comfortably, but not as much as he would expect for all of the diuretics he is receiving (UOP 3,000mL since admission) denies abdominal pain but states he feels bloated and passes a lot of gas, reports last BM was yesterday. he denies other concerns/symptoms Review of Systems Constitutional: Reports fatigue and Denies headache(s) Denies dizziness and Denies headache(s) Cardiovascular: Denies chest pain, Denies lightheadedness and Denies dyspnea Respiratory: Denies dyspnea Gastrointestinal: Denies abdominal pain, Reports bloating, Denies constipation, Reports excessive flatus, Denies diarrhea and Denies nausea Genitourinary: Denies hematuria, Denies oliguria, Denies difficulty urinating, Denies dysuria and Denies flank pain Musculoskeletal: Denies arthralgias Skin/Breast: Denies rash Denies dizziness and Denies headache(s) Endocrine: Reports fatigue PMFSH Past Medical History Medical History Ischemic cardiomyopathy History of torsades de pointes Atherosclerotic cardiovascular disease Elevated serum creatinine Biventricular ICD (implantable cardioverter-defibrillator) in place Syncope RBBB PVD (peripheral vascular disease) Hx of thyroid nodule GERD (gastroesophageal reflux disease) CAD (coronary artery disease) BPH (benign prostatic hyperplasia) Asthma Atrial fibrillation Family History Family History Mother Breast cancer Father Heart attack Brother Stomach cancer Brother Heart disease Surgical History Surgical History Hx of CABG Hx of cardiac cath H/O right knee surgery H/O heart surgery Social History Social History Household Members: None Housing: House Do you presently have visiting nurse or other home services: Yes (cleaning lady) Alcohol intake: former Comment: pt refusing red socks, alarms, and camera Patient Tobacco Use Status: Former Tobacco user Years Smoked: 25 +/- Smoked in Last 30 Days: No Use of substances other than those prescribed or required for medical reasons: No Currently Displaying Signs/Symptoms of Drug Intoxication Withdrawal: No Advance Directives: Yes Advance Directives on File: Yes Advance Directives Date on File: 10/31/23 Do you have a plan to hurt others: No Plan Recently lost weight without trying: No service: Yes Meds Allergies Allergy/AdvReac Type Severity Reaction Status Date / Time doxycycline Allergy Unknown Unknown Verified 04/12/24 09:57 narcotics AdvReac Nausea and Uncoded 02/18/24 14:29 Vomiting, hypotensive Active Medications: Current Medications Acetaminophen (Acetaminophen 325 Mg Tablet) 650 mg PO Q6H PRN PRN Reason: Pain, Mild (Pain Scale 1-3), fever or headache Albuterol/Ipratropium (Albuterol/Iprat 2.5/0.5mg 3 Ml Ampul.Neb) 3 ml INHALE Q4H PRN PRN Reason: Wheezing Last Admin: 04/13/24 09:44 Dose: 3 ml Allopurinol (Allopurinol 100 Mg Tablet) 100 mg PO DAILY@0900 [facility] Last Admin: 04/13/24 08:31 Dose: 100 mg Amiodarone HCl (Amiodarone Hcl 200 Mg Tablet) 200 mg PO DAILY@1700 [facility] Last Admin: 04/12/24 18:13 Dose: 200 mg Atorvastatin Calcium (Atorvastatin Calcium 40 Mg Tablet) 40 mg PO BEDTIME [facility] Last Admin: 04/12/24 22:07 Dose: 40 mg Calcium Carbonate (Calcium Carbonate 750 Mg Tab.Chew) 750 mg PO Q4H PRN PRN Reason: Heartburn Cilostazol (Cilostazol 50 Mg Tablet) 50 mg PO BID [facility] Last Admin: 04/13/24 08:30 Dose: 50 mg Ferrous Sulfate (Ferrous Sulfate 324 Mg Tablet.Dr) 324 mg PO DAILY@0600 [facility] Last Admin: 04/13/24 06:25 Dose: 324 mg Finasteride (Finasteride 5 Mg Tablet) 5 mg PO DAILY@0900 [facility] Last Admin: 04/13/24 08:30 Dose: 5 mg Gabapentin (Gabapentin 600 Mg Tablet) 600 mg PO BEDTIME [facility] Last Admin: 04/12/24 22:08 Dose: 600 mg Guaifenesin (Guaifenesin 100 Mg/5 Ml 5 Ml Liquid) 5 ml PO Q4H PRN PRN Reason: Cough Last Admin: 04/13/24 08:38 Dose: 5 ml Bumetanide 25 mg/ IV (Miscellaneous Supplies) 100 mls @ 1 mls/hr IVCONT .Q24H [facility] Last Admin: 04/12/24 16:06 Dose: 0.25 mg/hr, 1 mls/hr Levothyroxine Sodium (Levothyroxine Sodium 88 Mcg Tablet) 88 mcg PO DAILY@0600 [facility] Last Admin: 04/13/24 06:25 Dose: 88 mcg Lorazepam (Lorazepam 0.5 Mg Tablet) 0.5 mg PO DAILY PRN PRN Reason: Anxiety Last Admin: 04/12/24 22:10 Dose: 0.5 mg Magnesium Hydroxide (Milk Of Magnesia 30 Ml Oral.Susp) 30 ml PO DAILY PRN PRN Reason: Constipation Magnesium Oxide (Magnesium Oxide 400 Mg Tablet) 400 mg PO BID [facility] Last Admin: 04/13/24 08:31 Dose: 400 mg Melatonin (Melatonin 3 Mg Tablet) 6 mg PO BEDTIME PRN PRN Reason: Insomnia Metolazone (Metolazone 5 Mg Tablet) 5 mg PO DAILY PRN PRN Reason: Edema Ondansetron HCl (Ondansetron Hcl 4 Mg/2 Ml Vial) 4 mg IVPUSH Q8H PRN PRN Reason: Nausea and Vomiting Pantoprazole Sodium (Pantoprazole Sodium 20 Mg Tablet.Dr) 40 mg PO DAILY@0630 [facility] Last Admin: 04/13/24 06:25 Dose: 40 mg Potassium Chloride (Potassium Chloride Er 20 Meq Tab.Er.Prt) 40 meq PO DAILY [facility] Last Admin: 04/13/24 08:31 Dose: 40 meq Rivaroxaban (Rivaroxaban 15 Mg Tablet) 15 mg PO DAILY@1700 [facility] Last Admin: 04/12/24 18:42 Dose: 15 mg Sodium Chloride (0.9 % Sodium Chloride Flush 3 Ml Syringe) 3 ml IVFLUSH QSHIFT [facility] Last Admin: 04/13/24 08:32 Dose: 3 ml Home Medications ?Medication ?Instructions ?Recorded ?Confirmed ?Last Taken ?Type cilostazol 50 mg tablet 50 mg PO BID 06/18/21 04/12/24 04/12/24 History finasteride 5 mg tablet 5 mg PO DAILY@0900 06/18/21 04/12/24 04/12/24 History pantoprazole 40 mg tablet,delayed 40 mg PO DAILY@0630 06/18/21 04/12/24 04/12/24 History release allopurinol 100 mg tablet 100 mg PO DAILY@0910/27/23 04/12/24 04/12/24 History ferrous sulfate 325 mg (65 mg 325 mg PO DAILY@0602/09/24 04/12/24 04/12/24 History iron) tablet,delayed release lorazepam 0.5 mg tablet 0.5 mg PO DAILY PRN Anxiety 03/04/24 04/12/24 04/12/24 History levothyroxine 88 mcg tablet 88 mcg DAILY@0604/12/24 04/12/2424 History metolazone 2.5 mg tablet 2.5 mg PO DAILY PRN Edema 04/12/24 04/12/24 04/12/24 History Physical Exam Vital Signs: Last Vital Signs Temp 97.9 F 04/13/24 10:57 Pulse 74 04/13/24 10:57 Resp 20 04/13/24 10:57 BP 103/44 L 04/13/24 10:57 Pulse Ox 96 04/13/24 10:57 O2 Del Method Room Air 04/13/24 10:57 BMI result Body Mass Index 33.2 Const General: no acute distress, alert and awake Resp Effort & Inspection: normal respiratory effort and able to speak in complete sentences Auscultation: crackles and rhonchi Cardio Rate: regular rate Rhythm: regular rhythm Heart sounds: S1 normal heart sound present, S2 normal heart sound present and Murmur heart sound present GI Inspection: Yes distended Palpation (GI): nontender General: Yes no CVA tenderness Back/Spine/Pelvis Back: no CVA tenderness Skin Lesions: no lesions Rashes: no rashes Extrem General: Yes edema (BLE pitting edema +1/+2) Results Lab Results 04/13/24 06:09 04/13/24 06:09 Lab results: Chemistry 04/12/24 04/13/24 10:15 06:09 Sodium 129 L 132 L Potassium 5.0 D 2.7 L* D Carbon Dioxide 22 21 L BUN 94 H 90 H Creatinine 2.93 H 2.48 H Calcium 8.4 8.4 Hematology 04/12/24 04/13/24 10:15 06:09 WBC 9.7 7.8 Hgb 8.2 L 7.7 L Plt Count 353 299 Assessment and Plan (1) Acute on chronic diastolic (congestive) heart failure: Status: Acute (2) Hyponatremia: Status: Acute (3) LIBRA (acute kidney injury): Status: Acute (4) CKD (chronic kidney disease): Status: Acute Plan LIBRA on CKD likely hypoperfusion in setting of heart failure exacerbation creatinine has improved overnight with diuresis, recommend continuing with current diuresis plan recommend monitoring electrolytes daily and replacing potassium as needed chronic anemia likely secondary to anemia of chronic disease, given hypogammaglobulinemia, will check serum free light chains and urine immunofixation. hyponatremia in setting of heart failure, recommend restrict hypotonic fluids, and avoid thiazide diuretics recommend daily electrolyte and renal function studies Will continue to follow Discussed with Dr Anguiano Procedures Date of Service Date of Service: 04/13/24
[2024-04-13] MEDS: Magnesium Oxide 400 MG TABLET 800 MG PO ×2 (13:51→20:51)
[2024-04-13] MEDS: Bumetanide 25 MG in Container,Empty 0 ML IVCONT (15:13)
[2024-04-13 16:59] LABS: Potassium 3.5 mmol/L (3.3-5.1)
--- NOTE | 2024-04-13 17:04 | HO.PM.IMPN ---
Subjective Subjective Date of Service: 04/13/24 Interval History: chf , hypokalemia Review of Systems sob seems somewhat improving leg edema simialr i/o: 2.3 neg Physical Exam Vital Signs: Vital Signs: Last Vital Signs Temp 98.6 F 04/13/24 15:46 Pulse 69 04/13/24 15:46 Resp 20 04/13/24 15:46 BP 104/45 L 04/13/24 15:46 Pulse Ox 99 04/13/24 15:46 O2 Del Method Room Air 04/13/24 15:46 BMI result Body Mass Index 33.2 General: AOx3, no acute distress Resp: air entry fair but has cracles at bases left>right. CVS: S1, S2, RRR GI: +BS, NT, distended Skin: Warm, dry Extremities: 2-3+ pitting edema bilateral lower extremities Psych: Appropriate affect Objective Data Active Medications Acetaminophen (Acetaminophen 325 Mg Tablet) 650 mg PO Q6H PRN PRN Reason: Pain, Mild (Pain Scale 1-3), fever or headache Albuterol/Ipratropium (Albuterol/Iprat 2.5/0.5mg 3 Ml Ampul.Neb) 3 ml INHALE Q4H PRN PRN Reason: Wheezing Last Admin: 04/13/24 09:44 Dose: 3 ml Documented By: TATI Allopurinol (Allopurinol 100 Mg Tablet) 100 mg PO DAILY@0900 [facility] Last Admin: 04/13/24 08:31 Dose: 100 mg Documented By: ALEKSANDR Amiodarone HCl (Amiodarone Hcl 200 Mg Tablet) 200 mg PO DAILY@1700 [facility] Last Admin: 04/12/24 18:13 Dose: 200 mg Documented By: THU Atorvastatin Calcium (Atorvastatin Calcium 40 Mg Tablet) 40 mg PO BEDTIME [facility] Last Admin: 04/12/24 22:07 Dose: 40 mg Documented By: ANA Calcium Carbonate (Calcium Carbonate 750 Mg Tab.Chew) 750 mg PO Q4H PRN PRN Reason: Heartburn Cilostazol (Cilostazol 50 Mg Tablet) 50 mg PO BID [facility] Last Admin: 04/13/24 08:30 Dose: 50 mg Documented By: ALEKSANDR Ferrous Sulfate (Ferrous Sulfate 324 Mg Tablet.) 324 mg PO DAILY@0600 [facility] Last Admin: 04/13/24 06:25 Dose: 324 mg Documented By: ANA Finasteride (Finasteride 5 Mg Tablet) 5 mg PO DAILY@0900 [facility] Last Admin: 04/13/24 08:30 Dose: 5 mg Documented By: ALEKSANDR Gabapentin (Gabapentin 600 Mg Tablet) 600 mg PO BEDTIME [facility] Last Admin: 04/12/24 22:08 Dose: 600 mg Documented By: ANA Guaifenesin (Guaifenesin 100 Mg/5 Ml 5 Ml Liquid) 5 ml PO Q4H PRN PRN Reason: Cough Last Admin: 04/13/24 08:38 Dose: 5 ml Documented By: ALEKSANDR Bumetanide 25 mg/ IV (Miscellaneous Supplies) 100 mls @ 1 mls/hr IVCONT .Q24H [facility] Last Admin: 04/13/24 15:13 Dose: 0.25 mg/hr, 1 mls/hr Documented By: ALEKSANDR Levothyroxine Sodium (Levothyroxine Sodium 88 Mcg Tablet) 88 mcg PO DAILY@0600 [facility] Last Admin: 04/13/24 06:25 Dose: 88 mcg Documented By: ANA Lorazepam (Lorazepam 0.5 Mg Tablet) 0.5 mg PO DAILY PRN PRN Reason: Anxiety Last Admin: 04/12/24 22:10 Dose: 0.5 mg Documented By: ANA Comments: pt reports takes for anxiety and help him rest at night Magnesium Hydroxide (Milk Of Magnesia 30 Ml Oral.Susp) 30 ml PO DAILY PRN PRN Reason: Constipation Magnesium Oxide (Magnesium Oxide 400 Mg Tablet) 400 mg PO BID [facility] Last Admin: 04/13/24 08:31 Dose: 400 mg Documented By: ALEKSANDR Melatonin (Melatonin 3 Mg Tablet) 6 mg PO BEDTIME PRN PRN Reason: Insomnia Metolazone (Metolazone 5 Mg Tablet) 5 mg PO DAILY PRN PRN Reason: Edema Ondansetron HCl (Ondansetron Hcl 4 Mg/2 Ml Vial) 4 mg IVPUSH Q8H PRN PRN Reason: Nausea and Vomiting Pantoprazole Sodium (Pantoprazole Sodium 20 Mg Tablet.Dr) 40 mg PO DAILY@0630 [facility] Last Admin: 04/13/24 06:25 Dose: 40 mg Documented By: ANA Potassium Chloride (Potassium Chloride Er 20 Meq Tab.Er.Prt) 40 meq PO DAILY [facility] Last Admin: 04/13/24 08:31 Dose: 40 meq Documented By: ALEKSANDR Potassium Chloride (Potassium Chloride Er 20 Meq Tab.Er.Prt) 20 meq PO ONCE ONE Stop: 04/13/24 17:03 Rivaroxaban (Rivaroxaban 15 Mg Tablet) 15 mg PO DAILY@1700 [facility] Last Admin: 04/12/24 18:42 Dose: 15 mg Documented By: KENNEDY Sodium Chloride (0.9 % Sodium Chloride Flush 3 Ml Syringe) 3 ml IVFLUSH QSHIFT [facility] Last Admin: 04/13/24 08:32 Dose: 3 ml Documented By: ALEKSANDR Labs 04/13/24 06:09 04/13/24 16:25 Labs: Laboratory Results - last 24 hr 04/12/24 04/13/24 04/13/24 17:21 06:09 11:55 MCV 84.6 MCH 28.3 MCHC 33.5 RDW 24.3 H Plt Count 299 MPV 10.2 Immature Gran % (Auto) 1.1 H Neut % (Auto) 73.8 H Lymph % (Auto) 10.8 L Faulk % (Auto) 11.6 H Eos % (Auto) 2.2 Baso % (Auto) 0.5 Lymph # (Auto) 0.9 L Faulk # (Auto) 0.9 Eos # (Auto) 0.2 Baso # (Auto) 0.0 Abs Immat Gran (auto) 0.09 H Absolute Neuts (auto) 5.8 Absolute Nucleated RBC 0.000 Nucleated RBC % (auto) 0.0 Hold Purple Top Anion Gap 18 Estim Creat Clear Calc 23.3 Estimated GFR 25 Random Glucose 126 H Calcium 8.4 Magnesium 2.0 Iron 44 L TIBC 322 % Saturation 14 L Unsat Iron Binding 278 Ferritin 131 Troponin I High Sens 291.6 H* B-Natriuretic Peptide 1445 H Vitamin B12 494 Folate 13.7 04/13/24 16:25 MCV MCH MCHC RDW Plt Count MPV Immature Gran % (Auto) Neut % (Auto) Lymph % (Auto) Faulk % (Auto) Eos % (Auto) Baso % (Auto) Lymph # (Auto) Faulk # (Auto) Eos # (Auto) Baso # (Auto) Abs Immat Gran (auto) Absolute Neuts (auto) Absolute Nucleated RBC Nucleated RBC % (auto) Hold Purple Top SEE NOTE Anion Gap Estim Creat Clear Calc Estimated GFR Random Glucose Calcium Magnesium Iron TIBC % Saturation Unsat Iron Binding Ferritin Troponin I High Sens B-Natriuretic Peptide Vitamin B12 Folate Assessment and Plan (1) Acute on chronic combined systolic and diastolic CHF (congestive heart failure): Status: Resolved Plan 83-year-old male with a past medical history significant for cardiac arrest (03/2023) s/p biventricular ICD in place, HFrEF, CKD3, paroxysmal a fib on xarelto, CAD, PVD, HLD, BPH, unspecified asthma, GERD, gout and KEVIN on nasal CPAP presented to the ED today with worsening shortness of breath, dyspnea, weight gain and pedal edema for the past few weeks. He was discharged on 02/20 for a CHF exacerbation and new diuretics were added. He returns again today for CHF exacerbation. acute CHF exacerbation - chest x-ray with interstitial edema - BNP elevated at [id number] - troponin chronically elevated but stable - EKG stable from previous - monitor I's and O's - daily weights cardiology saw patient - rec: adjust to 1 milligram/hour. ovidio vs CKD 3 Creatinine improivng 2.48 Follow kidney function closely while on diuretics hypokalemia -added potassium replacements adjusted magnesium replacements also. Anemia of chronic disease H&H 9.1/29.5-trending down 7.7 /23 denies any ishmael bleeding or melena iron panel:low iron and sats but tibc and ferritin normal ,b12 and folate normal-?aocd Continue iron supplementation, repeat h/h , if needed may need to add prbc. Follow CBC CAD Continue statin, aspirin Paroxysmal AFib Continue metoprolol, Xarelto, amiodorone GERD PPI Patient requesting Flu shot. to give it while he is inpatient. Full Code. DVT Prophylaxis: On Xarelto Pt will require a hospitalization for treatment of?acute HFrEF exacerbation nonresponsive to outpatient p.o. medications. He will need inpatient treatment with IV diuretics that require close monitoring of kidney function and electrolyte levels. Quality Stroke Does the patient have a stroke diagnosis?: No VTE Prior VTE?: No VTE Risk Level:: Medical - moderate - high VTE Device Contraindication: Treatment Not Indicated VTE Drug Contraindication: N/A - Med Ordered
[2024-04-13 17:30] LABS: Hematocrit 24.6 % (42.0-52.0)
[2024-04-13] MEDS: Amiodarone HCL 200 MG TABLET PO (17:54)
[2024-04-13] MEDS: Rivaroxaban 15 MG TABLET PO (17:54)
[2024-04-13] MEDS: Atorvastatin Calcium 40 MG TABLET PO (20:51)
[2024-04-13] MEDS: Gabapentin 600 MG TABLET PO (20:51)
[2024-04-13] MEDS: LORazepam 0.5 MG TABLET PO (20:54)
[2024-04-14] VITALS (9 sets, daily range): BP systolic 108–124; BP diastolic 54–60; PULSE 60–85; RESP 16–18; TEMP 36.3–36.9; O2SAT 98–99; BMI 32.1
[2024-04-14] MEDS: Ferrous Sulfate 324 MG TABLET.DR PO (04:50)
[2024-04-14] MEDS: Levothyroxine Sodium 88 MCG TABLET PO (04:50)
[2024-04-14] MEDS: Pantoprazole Sodium 20 MG TABLET.DR 40 MG PO (04:50)
[2024-04-14 07:34] LABS: Hematocrit 23.6 % (42.0-52.0); Hemoglobin 7.5 g/dl (14.0-18.0)
[2024-04-14 07:37] LABS: Anion Gap 17 (12-20); Blood Urea Nitrogen 84 mg/dL (9-16); Calcium 8.4 mg/dL (8.4-10.2); Carbon Dioxide 22 mmol/L (22-29); Chloride 95 mmol/L (96-108); Creatinine Clr Calc Pharmacy 24.5; Estimated Glomerular Filt Rate 27; Glucose Random 150 mg/dL (60-115); Potassium 3.8 mmol/L (3.3-5.1); Sodium 130 mmol/L (135-145)
[2024-04-14 07:54] LABS: B Type Natriuretic Peptide 1461 pg/mL (<100)
[2024-04-14] MEDS: Albuterol/Iprat 2.5/0.5MG 3 ML AMPUL.NEB INHALE (08:24)
[2024-04-14] MEDS: Finasteride 5 MG TABLET PO (08:42)
[2024-04-14] MEDS: cilostazoL 50 MG TABLET PO ×2 (08:42→20:26)
[2024-04-14] MEDS: allopurinoL 100 MG TABLET PO (08:42)
[2024-04-14] MEDS: Potassium Chloride ER 20 MEQ TAB.ER.PRT 40 MEQ PO (08:43)
[2024-04-14] MEDS: 0.9 % Sodium Chloride Flush 3 ML SYRINGE IVFLUSH ×2 (08:43→15:30)
[2024-04-14] MEDS: Magnesium Oxide 400 MG TABLET 800 MG PO ×2 (08:43→20:26)
--- NOTE | 2024-04-14 09:47 | PM.PNCARD ---
Subjective Subjective Date of Service: 04/14/24 Interval history: Patient states that he feels slightly better. He is diuresing on the current regimen. Review of Systems Review of Systems Yes all other systems are reviewed and are negative Constitutional: Reports as per HPI and Reports no additional constitutional complaints Eyes: Reports as per HPI and Denies no additional eye complaints Denies system reviewed and no additional complaints, except as documented and Reports as per HPI Cardiovascular: Reports as per HPI, Reports no additional cardiovascular complaints, Denies acrocyanosis, Denies cool extremities, Denies chest pain, Reports leg edema, Denies lightheadedness, Denies palpitations and Reports dyspnea Respiratory: Reports as per HPI, Denies no additional respiratory complaints and Reports dyspnea Gastrointestinal: Reports as per HPI, Denies no additional gastrointestinal complaints and Reports bloating Genitourinary: Reports no additional male genitourinary complaints and Reports as per HPI Musculoskeletal: Reports no additional musculoskeletal complaints and Reports as per HPI Skin/Breast: Reports system reviewed and no additional complaints, except as docu Reports system reviewed and no additional complaints, except as documented and Reports as per HPI Psychiatric: Reports no additional psychiatric complaints and Reports as per HPI Endocrine: Reports no additional endocrine complaints, Reports as per HPI and Denies palpitations Hematologic/Lymphatic: Reports no additional hematologic/lymphatic complaints and Reports as per HPI Allergic/Immunologic: Reports no additional allergic/immunologic complaints and Reports as per HPI Physical Exam Vital Signs: Last Vital Signs Temp 97.3 F 04/14/24 07:29 Pulse 61 04/14/24 08:24 Resp 18 04/14/24 08:24 BP 122/60 04/14/24 07:29 Pulse Ox 98 04/14/24 07:29 O2 Del Method CPAP 04/14/24 07:29 BMI result Body Mass Index 32.1 Const General: comfortable and no acute distress Orientation/consciousness: patient oriented x3 HEENT Other: Unremarkable Head: Yes normal to inspection Neck Neck: Yes normal visual inspection Chest Chest palpation & inspection: normal inspection of the chest Resp Auscultation: rhonchi and diminished lung sounds Cardio Palpation: normal PMI Heart sounds: S1 normal heart sound present, S2 normal heart sound present, no gallops, no murmurs and no rubs GI Palpation (GI): Soft to palpation Back/Spine/Pelvis Other: unremarkable Skin General skin exam: no rashes or lesions noted Neuro General: patient oriented x3 Extrem Other: 1+ edema General: Yes normal to inspection Psych Mental Status: mental status grossly normal Objective Labs and Meds 04/14/24 06:12 04/14/24 06:12 Lab results: Laboratory Results - last 24 hr 04/13/24 04/13/24 04/13/24 06:09 11:55 16:25 Hgb 8.0 L Hct 24.6 L Hold Purple Top SEE NOTE Sodium Potassium Chloride Carbon Dioxide Anion Gap BUN Creatinine Estim Creat Clear Calc Estimated GFR Random Glucose Calcium Magnesium 2.0 Iron 44 L TIBC 322 % Saturation 14 L Unsat Iron Binding 278 Ferritin 131 B-Natriuretic Peptide Vitamin B12 494 Folate 13.7 Blood Type Antibody Screen 04/13/24 04/13/24 04/14/24 16:25 17:39 06:12 Hgb 7.5 L Hct 23.6 L Hold Purple Top SEE NOTE Sodium 130 L Potassium 3.5 D 3.8 Chloride 95 L Carbon Dioxide 22 Anion Gap 17 BUN 84 H Creatinine 2.32 H Estim Creat Clear Calc 24.5 Estimated GFR 27 Random Glucose 150 H Calcium 8.4 Magnesium Iron TIBC % Saturation Unsat Iron Binding Ferritin B-Natriuretic Peptide 1461 H Vitamin B12 Folate Blood Type A Positive Antibody Screen NEGATIVE Progress Note: A&P Assessment and plan (1) Acute on chronic diastolic (congestive) heart failure: Status: Acute Plan In the most recent echocardiogram, LVEF is 46%. Basal inferior akinesis. Mild aortic regurgitation; [id number] mitral regurgitation; mild tricuspid regurgitation with mild pulmonary hypertension. In terms of labs, potassium is 3.8. BUN is 84. Creatinine is 2.3. Per input output charting, -5 L. Continue Bumex at 1 milligram/hour dosing. Keep electrolytes repleted. We will follow up with you. Discussed with Dr. Blas. Time Spent With Patient Time: Total time managing care of this patient today ____ minutes. Progress Note: Quality Stroke Does the patient have a stroke diagnosis?: No Procedures Date of Service Date of Service: 04/14/24
--- NOTE | 2024-04-14 12:13 | P.PNNP_ITS ---
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 ED on 04/12 with dyspnea, weight gain, pedal edema for past few weeks. reportedly gained 24lbs over that time frame. States he was taking his diuretics as prescribed (4mg bumex daily and metolazone 2.5mg daily PRN, spironolactone had recently been d/c'd because of hypotension). Referred to nephrology for LIBRA on CKD3 in setting of CHF exacerbation. GFR in 20s Creatinine trend: 01/12/24 2.20 01/19/24 1.83 02/05/24 1.82 02/09/24 2.21 02/18/24 2.02 02/19/24 1.90 02/20/24 1.65 02/21/24 1.75 02/24/24 2.61 02/26/24 2.64 03/03/24 2.31 03/22/24 2.94 04/01/24 2.24 04/12/24 2.93 04/13/24 2.48 04/14/24 2.32 Urine bland 03/03/24 Renal US 02/11/24 unremarkable without hydronephrosis. patient has had mild hyponatremia since 02/24/24 hypokalemia today of 2.7 (oral replacement) after starting bumex gtt has worsening chronic normocytic anemia ( since at least September 2023, he is on iron supplementation) Patient states his breathing is comfortable states his legs still feel somewhat swollen states he is urinating regularly/comfortably, but not as much as he would expect for all of the diuretics he is receiving (UOP 3,200mL last 24hr) denies abdominal pain but states he feels bloated and passes a lot of gas, reports last BM was yesterday. he denies other concerns/symptoms Physical Exam 2 Vital Signs: Vital Signs: Last Vital Signs Temp 97.9 F 04/14/24 11:11 Pulse 62 04/14/24 11:11 Resp 18 04/14/24 11:11 BP 124/56 L 04/14/24 11:11 Pulse Ox 99 04/14/24 11:11 O2 Del Method Room Air 04/14/24 11:11 BMI result Body Mass Index 32.1 Objective Data Labs 04/14/24 06:12 04/14/24 06:12 Labs: Laboratory Results - last 24 hr 04/13/24 04/13/24 04/13/24 06:09 11:55 16:25 Hgb 8.0 L Hct 24.6 L Hold Purple Top SEE NOTE Sodium Potassium Chloride Carbon Dioxide Anion Gap BUN Creatinine Estim Creat Clear Calc Estimated GFR Random Glucose Calcium Magnesium 2.0 B-Natriuretic Peptide Vitamin B12 494 Folate 13.7 Blood Type Antibody Screen 04/13/24 04/13/24 04/14/24 16:25 17:39 06:12 Hgb 7.5 L Hct 23.6 L Hold Purple Top SEE NOTE Sodium 130 L Potassium 3.5 D 3.8 Chloride 95 L Carbon Dioxide 22 Anion Gap 17 BUN 84 H Creatinine 2.32 H Estim Creat Clear Calc 24.5 Estimated GFR 27 Random Glucose 150 H Calcium 8.4 Magnesium B-Natriuretic Peptide 1461 H Vitamin B12 Folate Blood Type A Positive Antibody Screen NEGATIVE Procedures Date of Service Date of Service: 04/14/24 Assessment & Plan Assessment and plan (1) LIBRA (acute kidney injury): Status: Acute (2) CKD (chronic kidney disease): Status: Acute (3) Acute on chronic diastolic (congestive) heart failure: Status: Acute (4) Hyponatremia: Status: Acute Plan LIBRA on CKD likely hypoperfusion in setting of heart failure exacerbation creatinine has continued to improve with diuresis, recommend continuing with current diuresis plan recommend monitoring electrolytes daily and replacing potassium as needed chronic anemia likely secondary to anemia of chronic disease; given hypogammaglobulinemia will check serum free light chains and urine immunofixation, these are pending hyponatremia in setting of heart failure, recommend restrict hypotonic fluids, and avoid thiazide diuretics recommend daily electrolyte and renal function studies Will continue to follow Discussed with Dr Wren Time Spent With Patient Time: Total time managing care of this patient today ____ minutes. Progress Note: Quality Stroke Does the patient have a stroke diagnosis?: No
--- NOTE | 2024-04-14 12:37 | P.CDIM_ITS ---
PROVIDER RESPONSE TEXT: To clarify, the appropriate diagnosis supported by the clinical indicators: Other (explain): likely anemia of ch dis QUERY TEXT: PHYSICIAN'S DOCUMENTATION REQUEST Date of Query: 04/14/2024 07:58 AM EDT Patient Name: Sherman Hurtado Admit Date: 04/12/2024 Dear Nicole Blas MD, A review of the medical record indicates additional documentation may be needed. Please review below and update the documentation accordingly. Clinical Indicators: Iron panel: low iron and sats. Iron: 44 L Continue iron supplementation, repeat h/h, if needed may need to add prbc. Based on the above, could you clarify which of the following is the most likely type of anemia you ar e evaluating, treating, and/or monitoring? Iron deficiency anemia possible, suspected, probable, etc. Other (explain) Clinically unable to determine (explain) Thank you, Xenia Boles, CCS, CDIS Use of terms such as suspected, likely, concern for, or probable (associated with a specific diagnosi s that is being evaluated, monitored, or treated as if it exists) are acceptable and can be coded in the inpatient se tting, when documented at the time of discharge. Please use your independent medical judgment in providing your response. THIS QUERY IS PART OF THE PERMANENT MEDICAL RECORD
--- NOTE | 2024-04-14 14:52 | MHC.CM.PN ---
EMR REVIEWED, PT REMAINS ON BUMEX DRIP, [facility] FOLLOWING HOWEVER PER [facility] PT ACTIVE W/[facility]IST[facility] SERVICES AND COULD ALSO OFFER [facility] SERVICES, NO PLAN FOR DC AT THIS TIME CM WILL CONT TO FOLLOW.
[2024-04-14] MEDS: Bumetanide 25 MG in Container,Empty 0 ML 4 MG IVCONT (15:26)
--- NOTE | 2024-04-14 15:52 | MHC.CM.PN ---
LATE ENTRY NOTE FOR 04/13/24, IMM DELIVERED TO BEDSIDE, PT REPORTS HE LIVES ALONE, HAS A CPAP, SHOWER CHAIR AND IS INDEP W/AMBULATION, PT HAS [facility] FOR HOUSE CLEANING, PT'S DTR/HCP [facility] ENTERED RM DURING ASSESSMENT AND WOULD LIKE [facility] SERVICES FOR PT, REFERRAL PLACED TO NA. [facility] WILL TRANSPORT PT HOME. PCP/HCP ON FILE VERIFIED.
--- NOTE | 2024-04-14 16:06 | P.PNIM_ITS ---
Subjective Subjective Date of Service: 04/14/24 Interval History: chf , hypokalemia Review of Systems sob seems somewhat improving leg edema similar i/o: 4.6 neg Physical Exam 2 Vital Signs: Vital Signs: Last Vital Signs Temp 98.5 F 04/14/24 15:25 Pulse 60 04/14/24 15:25 Resp 16 04/14/24 15:25 BP 116/55 L 04/14/24 15:25 Pulse Ox 99 04/14/24 15:25 O2 Del Method Room Air 04/14/24 15:25 BMI result Body Mass Index 32.1 General: AOx3, no acute distress Resp: air entry fair but has cracles at bases left>right. CVS: S1, S2, RRR GI: +BS, NT, distended Skin: Warm, dry Extremities: 2-3+ pitting edema bilateral lower extremities Psych: Appropriate affect Objective Data Active Medications Acetaminophen (Acetaminophen 325 Mg Tablet) 650 mg PO Q6H PRN PRN Reason: Pain, Mild (Pain Scale 1-3), fever or headache Albuterol/Ipratropium (Albuterol/Iprat 2.5/0.5mg 3 Ml Ampul.Neb) 3 ml INHALE Q4H PRN PRN Reason: Wheezing Last Admin: 04/14/24 08:24 Dose: 3 ml Documented By: TATI Allopurinol (Allopurinol 100 Mg Tablet) 100 mg PO DAILY@0900 [facility] Last Admin: 04/14/24 08:42 Dose: 100 mg Documented By: ALEKSANDR Amiodarone HCl (Amiodarone Hcl 200 Mg Tablet) 200 mg PO DAILY@1700 [facility] Last Admin: 04/13/24 17:54 Dose: 200 mg Documented By: ALEKSANDR Atorvastatin Calcium (Atorvastatin Calcium 40 Mg Tablet) 40 mg PO BEDTIME [facility] Last Admin: 04/13/24 20:51 Dose: 40 mg Documented By: ANA Calcium Carbonate (Calcium Carbonate 750 Mg Tab.Chew) 750 mg PO Q4H PRN PRN Reason: Heartburn Cilostazol (Cilostazol 50 Mg Tablet) 50 mg PO BID [facility] Last Admin: 04/14/24 08:42 Dose: 50 mg Documented By: ALEKSANDR Ferrous Sulfate (Ferrous Sulfate 324 Mg Tablet.) 324 mg PO DAILY@0600 [facility] Last Admin: 04/14/24 04:50 Dose: 324 mg Documented By: ANA Finasteride (Finasteride 5 Mg Tablet) 5 mg PO DAILY@0900 [facility] Last Admin: 04/14/24 08:42 Dose: 5 mg Documented By: ALEKSANDR Gabapentin (Gabapentin 600 Mg Tablet) 600 mg PO BEDTIME [facility] Last Admin: 04/13/24 20:51 Dose: 600 mg Documented By: ANA Guaifenesin (Guaifenesin 100 Mg/5 Ml 5 Ml Liquid) 5 ml PO Q4H PRN PRN Reason: Cough Last Admin: 04/13/24 20:52 Dose: 5 ml Documented By: ANA Comments: requested for congested cough Bumetanide 25 mg/ IV (Miscellaneous Supplies) 100 mls @ 4 mls/hr IVCONT .Q24H [facility] Last Admin: 04/14/24 15:26 Dose: 1 mg/hr, 4 mls/hr Documented By: ALEKSANDR Levothyroxine Sodium (Levothyroxine Sodium 88 Mcg Tablet) 88 mcg PO DAILY@0600 [facility] Last Admin: 04/14/24 04:50 Dose: 88 mcg Documented By: ANA Lorazepam (Lorazepam 0.5 Mg Tablet) 0.5 mg PO DAILY PRN PRN Reason: Anxiety Last Admin: 04/13/24 20:54 Dose: 0.5 mg Documented By: ANA Comments: requested for anxiety. Magnesium Hydroxide (Milk Of Magnesia 30 Ml Oral.Susp) 30 ml PO DAILY PRN PRN Reason: Constipation Magnesium Oxide (Magnesium Oxide 400 Mg Tablet) 800 mg PO BID [facility] Last Admin: 04/14/24 08:43 Dose: 800 mg Documented By: ALEKSANDR Melatonin (Melatonin 3 Mg Tablet) 6 mg PO BEDTIME PRN PRN Reason: Insomnia Metolazone (Metolazone 5 Mg Tablet) 5 mg PO DAILY PRN PRN Reason: Edema Ondansetron HCl (Ondansetron Hcl 4 Mg/2 Ml Vial) 4 mg IVPUSH Q8H PRN PRN Reason: Nausea and Vomiting Pantoprazole Sodium (Pantoprazole Sodium 20 Mg Tablet.) 40 mg PO DAILY@0630 [facility] Last Admin: 04/14/24 04:50 Dose: 40 mg Documented By: ANA Potassium Chloride (Potassium Chloride Er 20 Meq Tab.Er.Prt) 40 meq PO DAILY [facility] Last Admin: 04/14/24 08:43 Dose: 40 meq Documented By: ALEKSANDR Rivaroxaban (Rivaroxaban 15 Mg Tablet) 15 mg PO DAILY@1700 [facility] Last Admin: 04/13/24 17:54 Dose: 15 mg Documented By: ALEKSANDR Sodium Chloride (0.9 % Sodium Chloride Flush 3 Ml Syringe) 3 ml IVFLUSH QSHIFT [facility] Last Admin: 04/14/24 15:30 Dose: 3 ml Documented By: ALEKSANDR Labs 04/14/24 06:12 04/14/24 06:12 Labs: Laboratory Results - last 24 hr 04/13/24 04/13/24 04/13/24 16:25 16:25 17:39 Hold Purple Top SEE NOTE SEE NOTE Anion Gap Estim Creat Clear Calc Estimated GFR Random Glucose Calcium B-Natriuretic Peptide Blood Type A Positive Antibody Screen NEGATIVE 04/14/24 06:12 Hold Purple Top Anion Gap 17 Estim Creat Clear Calc 24.5 Estimated GFR 27 Random Glucose 150 H Calcium 8.4 B-Natriuretic Peptide 1461 H Blood Type Antibody Screen Assessment and Plan (1) Acute on chronic combined systolic and diastolic CHF (congestive heart failure): Status: Resolved Plan 83-year-old male with a past medical history significant for cardiac arrest (03/2023) s/p biventricular ICD in place, HFrEF, CKD3, paroxysmal a fib on xarelto, CAD, PVD, HLD, BPH, unspecified asthma, GERD, gout and KEVIN on nasal CPAP presented to the ED today with worsening shortness of breath, dyspnea, weight gain and pedal edema for the past few weeks. He was discharged on 02/20 for a CHF exacerbation and new diuretics were added. He returns again today for CHF exacerbation. acute CHF exacerbation - chest x-ray with interstitial edema - BNP elevated at [id number] - troponin chronically elevated but stable - EKG stable from previous - monitor I's and O's - daily weights cardiology saw patient - rec: adjust to 1 milligram/hour. ovidio vs CKD 3 Creatinine improivng 2.48 Follow kidney function closely while on diuretics hypokalemia -added potassium replacements adjusted magnesium replacements also. Anemia of chronic disease H&H 9.1/29.5-trending down 7.5/23.6(seems similar) denies any ishmael bleeding or melena iron panel:low iron and sats but tibc and ferritin normal ,b12 and folate normal-?aocd Continue iron supplementation, repeat h/h , if needed may need to add prbc. Follow CBC CAD Continue statin, Paroxysmal AFib Continue metoprolol, amiodorone hold Xarelto due to anemia GERD PPI Patient requesting Flu shot. to give it while he is inpatient. Full Code. DVT Prophylaxis: On Xarelto Pt will require a hospitalization for treatment of?acute HFrEF exacerbation nonresponsive to outpatient p.o. medications. He will need inpatient treatment with IV diuretics that require close monitoring of kidney function and electrolyte levels. Quality Stroke Does the patient have a stroke diagnosis?: No VTE Prior VTE?: No VTE Risk Level:: Medical - moderate - high VTE Device Contraindication: Treatment Not Indicated VTE Drug Contraindication: N/A - Med Ordered
[2024-04-14] MEDS: Amiodarone HCL 200 MG TABLET PO (17:02)
[2024-04-14] MEDS: guaiFENesin 100 MG/5 ML 5 ML LIQUID PO (20:26)
[2024-04-14] MEDS: Gabapentin 600 MG TABLET PO (20:26)
[2024-04-14] MEDS: Atorvastatin Calcium 40 MG TABLET PO (20:26)
[2024-04-14] MEDS: Acetaminophen 325 MG TABLET 650 MG PO (22:15)
[2024-04-15] VITALS (8 sets, daily range): BP systolic 101–126; BP diastolic 48–60; PULSE 59–77; RESP 18–20; TEMP 36–36.3; O2SAT 97–100
[2024-04-15] MEDS: Levothyroxine Sodium 88 MCG TABLET PO (05:00)
[2024-04-15] MEDS: Pantoprazole Sodium 20 MG TABLET.DR 40 MG PO (05:00)
[2024-04-15] MEDS: Ferrous Sulfate 324 MG TABLET.DR PO (05:00)
[2024-04-15] MEDS: Acetaminophen 325 MG TABLET 650 MG PO (05:00)
[2024-04-15 06:22] LABS: Hematocrit 23.4 % (42.0-52.0); Hemoglobin 7.7 g/dl (14.0-18.0); Mean Corpuscular HGB Conc 32.9 g/dl (31.0-36.0); Mean Corpuscular Hemoglobin 28.1 pg (27.0-33.0); Mean Corpuscular Volume 85.4 fL (80.0-98.0); Mean Platelet Volume 10.2 fL (9.4-12.4); Platelet Count 317 X10*3/uL (160-400); Red Blood Count 2.74 X10*6/uL (4.60-5.80); Red Cell Distribution Width 24.9 % (11.0-16.0); White Blood Count 8.6 X10*3/uL (4.8-10.8)
[2024-04-15 06:35] LABS: Anion Gap 18 (12-20); Blood Urea Nitrogen 88 mg/dL (9-16); Calcium 8.4 mg/dL (8.4-10.2); Carbon Dioxide 25 mmol/L (22-29); Chloride 92 mmol/L (96-108); Creatinine Clr Calc Pharmacy 27.6; Estimated Glomerular Filt Rate 31; Glucose Random 117 mg/dL (60-115); Potassium 4.2 mmol/L (3.3-5.1); Sodium 131 mmol/L (135-145)
[2024-04-15] MEDS: allopurinoL 100 MG TABLET PO (09:20)
[2024-04-15] MEDS: cilostazoL 50 MG TABLET PO (09:20)
[2024-04-15] MEDS: Magnesium Oxide 400 MG TABLET 800 MG PO (09:20)
[2024-04-15] MEDS: Potassium Chloride ER 20 MEQ TAB.ER.PRT 40 MEQ PO (09:20)
[2024-04-15] MEDS: Finasteride 5 MG TABLET PO (09:20)
[2024-04-15] MEDS: 0.9 % Sodium Chloride Flush 3 ML SYRINGE IVFLUSH ×2 (09:21→23:59)
--- NOTE | 2024-04-15 10:06 | PM.PNCARD ---
Subjective Subjective Date of Service: 04/15/24 Interval history: Patient states that he is still feels he has got a lot of fluid in the body. Review of Systems Review of Systems Yes all other systems are reviewed and are negative Constitutional: Reports as per HPI and Reports no additional constitutional complaints Eyes: Reports as per HPI and Denies no additional eye complaints Denies system reviewed and no additional complaints, except as documented and Reports as per HPI Cardiovascular: Reports as per HPI, Reports no additional cardiovascular complaints, Denies acrocyanosis, Denies cool extremities, Denies chest pain, Denies leg edema, Denies lightheadedness, Denies palpitations and Denies dyspnea Respiratory: Reports as per HPI, Denies no additional respiratory complaints and Denies dyspnea Gastrointestinal: Reports as per HPI and Denies no additional gastrointestinal complaints Genitourinary: Reports no additional male genitourinary complaints and Reports as per HPI Musculoskeletal: Reports no additional musculoskeletal complaints and Reports as per HPI Skin/Breast: Reports system reviewed and no additional complaints, except as docu Reports system reviewed and no additional complaints, except as documented and Reports as per HPI Psychiatric: Reports no additional psychiatric complaints and Reports as per HPI Endocrine: Reports no additional endocrine complaints, Reports as per HPI and Denies palpitations Hematologic/Lymphatic: Reports no additional hematologic/lymphatic complaints and Reports as per HPI Allergic/Immunologic: Reports no additional allergic/immunologic complaints and Reports as per HPI Physical Exam Vital Signs: Last Vital Signs Temp 97.4 F 04/15/24 07:58 Pulse 61 04/15/24 08:50 Resp 18 04/15/24 07:58 BP 101/55 L 04/15/24 08:50 Pulse Ox 99 04/15/24 08:50 O2 Del Method Room Air 04/15/24 07:58 BMI result Body Mass Index 32.1 Const General: comfortable and no acute distress Orientation/consciousness: patient oriented x3 HEENT Other: Unremarkable Head: Yes normal to inspection Neck Neck: Yes normal visual inspection Chest Chest palpation & inspection: normal inspection of the chest Resp Other: Bilateral rhonchi Auscultation: rhonchi and diminished lung sounds Cardio Palpation: normal PMI Heart sounds: S1 normal heart sound present, S2 normal heart sound present, no gallops, no murmurs and no rubs GI Other: Distended Palpation (GI): Soft to palpation Back/Spine/Pelvis Other: unremarkable Skin General skin exam: no rashes or lesions noted Neuro General: patient oriented x3 Extrem Other: 1+ edema General: Yes normal to inspection Psych Mental Status: mental status grossly normal Objective Labs and Meds 04/15/24 05:43 04/15/24 05:43 Lab results: Laboratory Results - last 24 hr 04/15/24 05:43 WBC 8.6 RBC 2.74 L Hgb 7.7 L Hct 23.4 L MCV 85.4 MCH 28.1 MCHC 32.9 RDW 24.9 H Plt Count 317 MPV 10.2 Absolute Nucleated RBC 0.000 Nucleated RBC % (auto) 0.0 Sodium 131 L Potassium 4.2 Chloride 92 L Carbon Dioxide 25 Anion Gap 18 BUN 88 H Creatinine 2.06 H Estim Creat Clear Calc 27.6 Estimated GFR 31 Random Glucose 117 H Calcium 8.4 Progress Note: A&P Assessment and plan (1) Acute on chronic diastolic (congestive) heart failure: Status: Acute Plan In the most recent echocardiogram, LVEF is 46%. Basal inferior akinesis. Mild aortic regurgitation; [id number] mitral regurgitation; mild tricuspid regurgitation with mild pulmonary hypertension. With regard to input output data, he has put out about 7.8 L. He is-6 L. However, unclear how much it is accurate as the input is only 1.6 L for 3 days. Patient still feels volume overloaded and he does look volume overloaded. Continue Bumex at the current rate. Add more metolazone. Consider acetazolamide. Correct electrolytes accordingly. Discussed with Dr. Blas. Time Spent With Patient Time: Total time managing care of this patient today ____ minutes. Progress Note: Quality Stroke Does the patient have a stroke diagnosis?: No Procedures Date of Service Date of Service: 04/15/24
--- NOTE | 2024-04-15 10:53 | P.PNNP_ITS ---
Subjective Subjective Date of Service: 04/15/24 Interval history: 83 y/o male with medical history of cardiac arrest (03/2023), biventricular ICD in place, HFrEF, CKD3, paroxysmal afib on xarelto, CAD, PVD, asthma, GERD, gout, KEVIN on CPAP. ED on 04/12 with dyspnea, weight gain, pedal edema for past few weeks. reportedly gained 24lbs over that time frame. States he was taking his diuretics as prescribed (4mg bumex daily and metolazone 2.5mg daily PRN, spironolactone had recently been d/c'd because of hypotension). Referred to nephrology for LIBRA on CKD3 in setting of CHF exacerbation. GFR in 20s Creatinine trend: 01/12/24 2.20 01/19/24 1.83 02/05/24 1.82 02/09/24 2.21 02/18/24 2.02 02/19/24 1.90 02/20/24 1.65 02/21/24 1.75 02/24/24 2.61 02/26/24 2.64 03/03/24 2.31 03/22/24 2.94 04/01/24 2.24 04/12/24 2.93 04/13/24 2.48 04/14/24 2.32 04/15/24 2.06 Urine bland 03/03/24 Renal US 02/11/24 unremarkable without hydronephrosis. patient has had mild hyponatremia since 02/24/24 has worsening chronic normocytic anemia ( since at least September 2023, he is on iron supplementation) Patient states his breathing is comfortable states his legs still feel somewhat swollen states he is urinating regularly/comfortably, but not as much as he would expect for all of the diuretics he is receiving (UOP 3,200mL last 24hr) denies abdominal pain but states he feels bloated and passes a lot of gas, reports last BM was yesterday. he denies other concerns/symptoms Physical Exam 2 Vital Signs: Vital Signs: Last Vital Signs Temp 97.4 F 04/15/24 07:58 Pulse 61 04/15/24 08:50 Resp 18 04/15/24 07:58 BP 101/55 L 04/15/24 08:50 Pulse Ox 99 04/15/24 08:50 O2 Del Method Room Air 04/15/24 07:58 BMI result Body Mass Index 32.1 Objective Data Labs 04/15/24 05:43 04/15/24 05:43 Labs: Laboratory Results - last 24 hr 04/15/24 05:43 WBC 8.6 RBC 2.74 L Hgb 7.7 L Hct 23.4 L MCV 85.4 MCH 28.1 MCHC 32.9 RDW 24.9 H Plt Count 317 MPV 10.2 Absolute Nucleated RBC 0.000 Nucleated RBC % (auto) 0.0 Sodium 131 L Potassium 4.2 Chloride 92 L Carbon Dioxide 25 Anion Gap 18 BUN 88 H Creatinine 2.06 H Estim Creat Clear Calc 27.6 Estimated GFR 31 Random Glucose 117 H Calcium 8.4 Procedures Date of Service Date of Service: 04/15/24 Assessment & Plan Assessment and plan (1) LIBRA (acute kidney injury): Status: Acute (2) CKD (chronic kidney disease): Status: Acute (3) Acute on chronic diastolic (congestive) heart failure: Status: Acute (4) Hyponatremia: Status: Acute Plan LIBRA on CKD likely hypoperfusion in setting of heart failure exacerbation creatinine has continued to improve with diuresis (now at baseline), recommend continuing with current diuresis plan recommend monitoring electrolytes daily and replacing potassium as needed chronic anemia likely secondary to anemia of chronic disease; given hypogammaglobulinemia will check serum free light chains and urine immunofixation, these are pending. hyponatremia in setting of heart failure, recommend restrict hypotonic fluids, and avoid thiazide diuretics recommend daily electrolyte and renal function studies Will continue to follow Discussed with Dr Wren Time Spent With Patient Time: Total time managing care of this patient today ____ minutes. Progress Note: Quality Stroke Does the patient have a stroke diagnosis?: No
[2024-04-15] MEDS: acetaZOLAMIDE 250 MG TABLET PO (13:11)
[2024-04-15 14:13] LABS: OBS Int Ctl Valid YES; OBS1 NEGATIVE (NEGATIVE)
--- NOTE | 2024-04-15 14:15 | P.PNIM_ITS ---
Subjective Subjective Date of Service: 04/15/24 Interval History: chf excerebation anemia i/o 6.9 liter negative Review of Systems sob somewhat improivng as well as leg edema Physical Exam 2 Vital Signs: Vital Signs: Last Vital Signs Temp 97.3 F 04/15/24 11:48 Pulse 60 04/15/24 11:48 Resp 20 04/15/24 11:48 BP 107/48 L 04/15/24 11:48 Pulse Ox 100 04/15/24 11:48 O2 Del Method Room Air 04/15/24 11:48 BMI result Body Mass Index 32.1 General: AOx3, no acute distress Resp: air entry fair but has cracles at bases left>right. CVS: S1, S2, RRR GI: +BS, NT,nd ,bs present Skin: Warm, dry Extremities: 2-3+ pitting edema bilateral lower extremities Psych: Appropriate affect Objective Data Active Medications Acetaminophen (Acetaminophen 325 Mg Tablet) 650 mg PO Q6H PRN PRN Reason: Pain, Mild (Pain Scale 1-3), fever or headache Last Admin: 04/15/24 05:00 Dose: 650 mg Documented By: ERMA Albuterol/Ipratropium (Albuterol/Iprat 2.5/0.5mg 3 Ml Ampul.Neb) 3 ml INHALE Q4H PRN PRN Reason: Wheezing Last Admin: 04/14/24 08:24 Dose: 3 ml Documented By: TATI Allopurinol (Allopurinol 100 Mg Tablet) 100 mg PO DAILY@0900 [facility] Last Admin: 04/15/24 09:20 Dose: 100 mg Documented By: ESME Amiodarone HCl (Amiodarone Hcl 200 Mg Tablet) 200 mg PO DAILY@1700 [facility] Last Admin: 04/14/24 17:02 Dose: 200 mg Documented By: ALEKSANDR Atorvastatin Calcium (Atorvastatin Calcium 40 Mg Tablet) 40 mg PO BEDTIME [facility] Last Admin: 04/14/24 20:26 Dose: 40 mg Documented By: ILSA Calcium Carbonate (Calcium Carbonate 750 Mg Tab.Chew) 750 mg PO Q4H PRN PRN Reason: Heartburn Cilostazol (Cilostazol 50 Mg Tablet) 50 mg PO BID [facility] Last Admin: 04/15/24 09:20 Dose: 50 mg Documented By: ESME Ferrous Sulfate (Ferrous Sulfate 324 Mg Tablet.) 324 mg PO DAILY@0600 [facility] Last Admin: 04/15/24 05:00 Dose: 324 mg Documented By: ERMA Finasteride (Finasteride 5 Mg Tablet) 5 mg PO DAILY@0900 [facility] Last Admin: 04/15/24 09:20 Dose: 5 mg Documented By: ESME Gabapentin (Gabapentin 600 Mg Tablet) 600 mg PO BEDTIME [facility] Last Admin: 04/14/24 20:26 Dose: 600 mg Documented By: ILSA Guaifenesin (Guaifenesin 100 Mg/5 Ml 5 Ml Liquid) 5 ml PO Q4H PRN PRN Reason: Cough Last Admin: 04/14/24 20:26 Dose: 5 ml Documented By: ILSA Bumetanide 25 mg/ IV (Miscellaneous Supplies) 100 mls @ 4 mls/hr IVCONT .Q24H [facility] Last Admin: 04/14/24 15:26 Dose: 1 mg/hr, 4 mls/hr Documented By: ALEKSANDR Levothyroxine Sodium (Levothyroxine Sodium 88 Mcg Tablet) 88 mcg PO DAILY@0600 [facility] Last Admin: 04/15/24 05:00 Dose: 88 mcg Documented By: ERMA Lorazepam (Lorazepam 0.5 Mg Tablet) 0.5 mg PO DAILY PRN PRN Reason: Anxiety Last Admin: 04/13/24 20:54 Dose: 0.5 mg Documented By: ANA Comments: requested for anxiety. Magnesium Hydroxide (Milk Of Magnesia 30 Ml Oral.Susp) 30 ml PO DAILY PRN PRN Reason: Constipation Magnesium Oxide (Magnesium Oxide 400 Mg Tablet) 800 mg PO BID [facility] Last Admin: 04/15/24 09:20 Dose: 800 mg Documented By: ESME Melatonin (Melatonin 3 Mg Tablet) 6 mg PO BEDTIME PRN PRN Reason: Insomnia Metolazone (Metolazone 5 Mg Tablet) 5 mg PO DAILY PRN PRN Reason: Edema Ondansetron HCl (Ondansetron Hcl 4 Mg/2 Ml Vial) 4 mg IVPUSH Q8H PRN PRN Reason: Nausea and Vomiting Pantoprazole Sodium (Pantoprazole Sodium 20 Mg Tablet.) 40 mg PO DAILY@0630 [facility] Last Admin: 04/15/24 05:00 Dose: 40 mg Documented By: ERMA Potassium Chloride (Potassium Chloride Er 20 Meq Tab.Er.Prt) 40 meq PO DAILY [facility] Last Admin: 04/15/24 09:20 Dose: 40 meq Documented By: ESME Rivaroxaban (Rivaroxaban 15 Mg Tablet) 15 mg PO DAILY@1700 [facility] Last Admin: 04/13/24 17:54 Dose: 15 mg Documented By: ALEKSANDR Sodium Chloride (0.9 % Sodium Chloride Flush 3 Ml Syringe) 3 ml IVFLUSH QSHIFT [facility] Last Admin: 04/15/24 09:21 Dose: 3 ml Documented By: ESME Labs 04/15/24 05:43 04/15/24 05:43 Labs: Laboratory Results - last 24 hr 04/13/24 04/15/24 04/15/24 16:55 05:43 13:45 MCV 85.4 MCH 28.1 MCHC 32.9 RDW 24.9 H Plt Count 317 MPV 10.2 Absolute Nucleated RBC 0.000 Nucleated RBC % (auto) 0.0 Anion Gap 18 Estim Creat Clear Calc 27.6 Estimated GFR 31 Random Glucose 117 H Calcium 8.4 Stool Occult Blood NEGATIVE Urine Immunofixation SEE NOTE Assessment and Plan (1) Acute on chronic combined systolic and diastolic CHF (congestive heart failure): Status: Resolved Plan 83-year-old male with a past medical history significant for cardiac arrest (03/2023) s/p biventricular ICD in place, HFrEF, CKD3, paroxysmal a fib on xarelto, CAD, PVD, HLD, BPH, unspecified asthma, GERD, gout and KEVIN on nasal CPAP presented to the ED today with worsening shortness of breath, dyspnea, weight gain and pedal edema for the past few weeks. He was discharged on 02/20 for a CHF exacerbation and new diuretics were added. He returns again today for CHF exacerbation. acute CHF exacerbation - chest x-ray with interstitial edema - BNP elevated at [id number] - troponin chronically elevated but stable - EKG stable from previous - monitor I's and O's neg 7 liter - daily weights cardiology saw patient - rec: adjust to 1 milligram/hour,added metolazone and dimox ovidio vs CKD 3 Creatinine improivng 2.48 Follow kidney function closely while on diuretics hypokalemia -added potassium replacements adjusted magnesium replacements also. Anemia of chronic disease H&H 9.1/29.5-trending down 7.7/23.6(seems similar) denies any ishmael bleeding or melena iron panel:low iron and sats but tibc and ferritin normal ,b12 and folate normal-?aocd fobt negative Continue iron supplementation, nephro need Follow CBC CAD Continue statin, Paroxysmal AFib Continue metoprolol, amiodorone hold Xarelto due to anemia GERD PPI Patient requesting Flu shot. to give it while he is inpatient. Full Code. DVT Prophylaxis: On Xarelto Pt will require a hospitalization for treatment of?acute HFrEF exacerbation nonresponsive to outpatient p.o. medications. He will need inpatient treatment with IV diuretics that require close monitoring of kidney function and electrolyte levels. Quality Stroke Does the patient have a stroke diagnosis?: No VTE Prior VTE?: No VTE Risk Level:: Medical - moderate - high VTE Device Contraindication: Treatment Not Indicated VTE Drug Contraindication: N/A - Med Ordered
[2024-04-15] MEDS: ondansetron HCL 4 MG/2 ML VIAL IVPUSH (14:30)
[2024-04-15] MEDS: Bumetanide 25 MG in Container,Empty 0 ML 4 MG IVCONT (15:32)
[2024-04-15] MEDS: metOLazone 2.5 MG TABLET PO (15:32)
[2024-04-15] MEDS: Amiodarone HCL 200 MG TABLET PO (17:09)
[2024-04-15] MEDS: Rivaroxaban 15 MG TABLET PO (17:09)
[2024-04-15 17:11] LABS: B Type Natriuretic Peptide 1720 pg/mL (<100)
[2024-04-15 21:16] LABS: MANUAL DIFF FLAG NO
[2024-04-15 21:38] LABS: Alanine Aminotransferase 25 U/L (0-40); Albumin Level 3.4 g/dL (3.5-5.0); Alkaline Phosphatase 189 U/L (39-117); Anion Gap 18 (12-20); Aspartate Amino Transferase 43 U/L (5-37); Bilirubin Total 1.1 mg/dL (0.0-1.0); Blood Urea Nitrogen 80 mg/dL (9-16); Calcium 8.6 mg/dL (8.4-10.2); Carbon Dioxide 23 mmol/L (22-29); Chloride 93 mmol/L (96-108); Creatinine Clr Calc Pharmacy 28.4; Estimated Glomerular Filt Rate 32; Glucose Random 109 mg/dL (60-115); Lipase 39 U/L (8-78); Magnesium 2.5 mg/dL (1.6-2.6); Potassium 4.2 mmol/L (3.3-5.1); Sodium 130 mmol/L (135-145); Total Protein 6.3 g/dL (6.5-8.0)
[2024-04-15 22:17] LABS: Basophils Percent Auto 0.2 % (0-2); Eosinophils Absolute Auto 0.1 X10*3/uL (0.0-0.4); Eosinophils Percent Auto 1.4 % (0-4); Hemoglobin 7.9 g/dl (14.0-18.0); Imm Gran Abs Auto 0.11 X10*3/uL (0.00-0.03); Imm Gran Pct Auto 1.3 % (0.0-0.4); Lymphocytes Absolute Auto 0.8 X10*3/uL (1.2-4.9); Lymphocytes Percent Auto 8.6 % (20-40); Mean Corpuscular HGB Conc 32.9 g/dl (31.0-36.0); Mean Corpuscular Hemoglobin 28.2 pg (27.0-33.0); Mean Corpuscular Volume 85.7 fL (80.0-98.0); Mean Platelet Volume 10.3 fL (9.4-12.4); Monocytes Absolute Auto 0.7 X10*3/uL (0.1-1.2); Monocytes Percent Auto 8.5 % (2-11); Platelet Count 346 X10*3/uL (160-400); Red Cell Distribution Width 24.8 % (11.0-16.0); White Blood Count 8.7 X10*3/uL (4.8-10.8)
[2024-04-16] VITALS (7 sets, daily range): BP systolic 94–114; BP diastolic 46–55; PULSE 60–82; RESP 16–20; TEMP 36.2–36.8; O2SAT 96–100
[2024-04-16] MEDS: Ferrous Sulfate 324 MG TABLET.DR PO (06:27)
[2024-04-16] MEDS: Levothyroxine Sodium 88 MCG TABLET PO (06:27)
[2024-04-16] MEDS: Pantoprazole Sodium 20 MG TABLET.DR 40 MG PO (06:27)
[2024-04-16 07:34] LABS: Glucose, Whole Blood 103 mg/dL (60-115)
[2024-04-16 08:55] LABS: Hematocrit 24.5 % (42.0-52.0)
[2024-04-16 09:17] LABS: Lactate Dehydrogenase 247 U/L (118-273)
--- NOTE | 2024-04-16 09:19 | MHC.CM.PN ---
Addendum entered by Edith Peters 04/16/24 13:54: PT recommends STR @ Discharge. Discharge is anticipated early next week. The patient has accepted a bed offer from [facility]. DP STR @ [facility]. He will transport via BLS. Original Note: PT rec is STR. A referral has been sent to [facility] [place]. Per MD a Paracentesis has been ordered for today. DP STR via BLS vs home with services and family transport. CM will follow.
--- NOTE | 2024-04-16 10:11 | PC.NURSE ---
pt states he is nauseous and wants to hold morning meds until he feels better
--- NOTE | 2024-04-16 10:42 | PM.PNNEP ---
Subjective Subjective Date of Service: 04/16/24 Interval history: 83 y/o male with medical history of cardiac arrest (03/2023), biventricular ICD in place, HFrEF, CKD3, paroxysmal afib on xarelto, CAD, PVD, asthma, GERD, gout, KEVIN on CPAP. ED on 04/12 with dyspnea, weight gain, pedal edema for past few weeks. Referred to nephrology for LIBRA on CKD3 in setting of CHF exacerbation. GFR in 20s Creatinine trend: 01/12/24 2.20 01/19/24 1.83 02/05/24 1.82 02/09/24 2.21 02/18/24 2.02 02/19/24 1.90 02/20/24 1.65 02/21/24 1.75 02/24/24 2.61 02/26/24 2.64 03/03/24 2.31 03/22/24 2.94 04/01/24 2.24 04/12/24 2.93 04/13/24 2.48 04/14/24 2.32 04/15/24 2.06 04/16/24 2.00 Urine bland 03/03/24 Renal US 02/11/[address] abd/pelvis kidneys and ureters unremarkable. patient has had mild hyponatremia since 02/24/24 has worsening chronic normocytic anemia ( since at least September 2023, he is on iron supplementation) Patient states his breathing is comfortable but he has a wet cough/upper airway phlegm states his legs still feel swollen states he is urinating regularly/comfortably, but not as much as he would expect for all of the diuretics he is receiving (UOP 2800mL last 24hr) denies abdominal pain but states he feels bloated and passes a lot of gas, he is passing stool. he denies other concerns/symptoms Physical Exam Vital Signs: Vital Signs: Last Vital Signs Temp 97.6 F 04/16/24 07:18 Pulse 60 04/16/24 08:42 Resp 20 04/16/24 07:18 BP 100/52 L 04/16/24 08:42 Pulse Ox 98 04/16/24 08:42 O2 Del Method Room Air 04/16/24 07:18 BMI result Body Mass Index 32.1 Const: General: comfortable, alert and awake Resp: Effort & Inspection: normal respiratory effort and able to speak in complete sentences Auscultation: rhonchi Cardio: Rate: regular rate Rhythm: regular rhythm Heart sounds: S1 normal heart sound present and S2 normal heart sound present GI: Palpation (GI): Soft to palpation and nontender : General: Yes no CVA tenderness Back/Spine/Pelvis: Back: no CVA tenderness Skin: Rashes: no rashes Extrem: General: Yes edema (BLE pitting ~+1/+2) Objective Data Labs 04/16/24 08:20 04/15/24 21:09 Labs: Laboratory Results - last 24 hr 04/13/24 04/15/24 04/15/24 16:55 13:45 16:29 WBC RBC Hgb Hct MCV MCH MCHC RDW Plt Count MPV Immature Gran % (Auto) Neut % (Auto) Lymph % (Auto) [place] % (Auto) Eos % (Auto) Baso % (Auto) Lymph # (Auto) [place] # (Auto) Eos # (Auto) Baso # (Auto) Abs Immat Gran (auto) Absolute Neuts (auto) Absolute Nucleated RBC Nucleated RBC % (auto) Sodium Potassium Chloride Carbon Dioxide Anion Gap BUN Creatinine Estim Creat Clear Calc Estimated GFR POC Glucose Random Glucose Calcium Magnesium Total Bilirubin AST ALT Alkaline Phosphatase Lactate Dehydrogenase B-Natriuretic Peptide 1720 H Total Protein Albumin Lipase Stool Occult Blood NEGATIVE Urine Immunofixation SEE NOTE 04/15/24 04/16/24 04/16/24 21:09 07:21 08:20 WBC 8.7 RBC 2.80 L Hgb 7.9 L 8.0 L Hct 24.0 L 24.5 L MCV 85.7 MCH 28.2 MCHC 32.9 RDW 24.8 H Plt Count 346 MPV 10.3 Immature Gran % (Auto) 1.3 H Neut % (Auto) 80.0 H Lymph % (Auto) 8.6 L [place] % (Auto) 8.5 Eos % (Auto) 1.4 Baso % (Auto) 0.2 Lymph # (Auto) 0.8 L [place] # (Auto) 0.7 Eos # (Auto) 0.1 Baso # (Auto) 0.0 Abs Immat Gran (auto) 0.11 H Absolute Neuts (auto) 7.0 Absolute Nucleated RBC 0.000 Nucleated RBC % (auto) 0.0 Sodium 130 L Potassium 4.2 Chloride 93 L Carbon Dioxide 23 Anion Gap 18 BUN 80 H Creatinine 2.00 H Estim Creat Clear Calc 28.4 Estimated GFR 32 POC Glucose 103 Random Glucose 109 Calcium 8.6 Magnesium 2.5 Total Bilirubin 1.1 H AST 43 H ALT 25 Alkaline Phosphatase 189 H Lactate Dehydrogenase 247 B-Natriuretic Peptide Total Protein 6.3 L Albumin 3.4 L Lipase 39 Stool Occult Blood Urine Immunofixation Procedures Date of Service Date of Service: 04/16/24 Assessment & Plan Assessment and plan (1) LIBRA (acute kidney injury): Status: Acute (2) CKD (chronic kidney disease): Status: Acute (3) Acute on chronic diastolic (congestive) heart failure: Status: Acute (4) Hyponatremia: Status: Acute Plan LIBRA on CKD likely hypoperfusion in setting of heart failure exacerbation creatinine has continued to improve with diuresis (now at baseline), recommend continuing with current diuresis plan recommend monitoring electrolytes daily and replacing potassium as needed chronic anemia- does have iron deficiency, taking oral iron, he is absorbing as iron stores have increased over time with oral iron supplementation. recommend continuing iron supplementation and will follow up outpatient for continued management hyponatremia in setting of heart failure, recommend restrict hypotonic fluids, and avoid thiazide diuretics recommend daily electrolyte and renal function studies Will continue to follow Discussed with Dr Wren Time Spent With Patient Time: Total time managing care of this patient today ____ minutes. Progress Note: Quality Stroke Does the patient have a stroke diagnosis?: No
[2024-04-16] MEDS: Albumin Human 25 % 100 ML IV ×3 (10:48→22:20)
--- NOTE | 2024-04-16 11:06 | PM.PNCARD ---
Subjective Subjective Date of Service: 04/16/24 Interval history: Patient states he does not feel too good. Some nausea/vomiting. He is coughing now. Unclear if he has any concurrent respiratory infection as well. However, he did diurese. Review of Systems Review of Systems Yes all other systems are reviewed and are negative Constitutional: Reports as per HPI and Reports no additional constitutional complaints Eyes: Reports as per HPI and Denies no additional eye complaints Denies system reviewed and no additional complaints, except as documented and Reports as per HPI Cardiovascular: Reports as per HPI, Reports no additional cardiovascular complaints, Denies acrocyanosis, Denies cool extremities, Denies chest pain, Reports leg edema, Denies lightheadedness, Denies palpitations and Reports dyspnea Respiratory: Reports as per HPI, Denies no additional respiratory complaints and Reports dyspnea Gastrointestinal: Reports as per HPI and Denies no additional gastrointestinal complaints Genitourinary: Reports no additional male genitourinary complaints and Reports as per HPI Musculoskeletal: Reports no additional musculoskeletal complaints and Reports as per HPI Skin/Breast: Reports system reviewed and no additional complaints, except as docu Reports system reviewed and no additional complaints, except as documented and Reports as per HPI Psychiatric: Reports no additional psychiatric complaints and Reports as per HPI Endocrine: Reports no additional endocrine complaints, Reports as per HPI and Denies palpitations Hematologic/Lymphatic: Reports no additional hematologic/lymphatic complaints and Reports as per HPI Allergic/Immunologic: Reports no additional allergic/immunologic complaints and Reports as per HPI Physical Exam Vital Signs: Last Vital Signs Temp 97.6 F 04/16/24 07:18 Pulse 60 04/16/24 08:42 Resp 20 04/16/24 07:18 BP 100/52 L 04/16/24 08:42 Pulse Ox 98 04/16/24 08:42 O2 Del Method Room Air 04/16/24 07:18 BMI result Body Mass Index 32.1 Const General: comfortable and no acute distress Orientation/consciousness: patient oriented x3 HEENT Other: Unremarkable Head: Yes normal to inspection Neck Neck: Yes normal visual inspection Chest Chest palpation & inspection: normal inspection of the chest Resp Other: Bilateral rhonchi Auscultation: rhonchi and diminished lung sounds Cardio Palpation: normal PMI Heart sounds: S1 normal heart sound present, S2 normal heart sound present, no gallops, no murmurs and no rubs GI Other: Distended Palpation (GI): Soft to palpation Back/Spine/Pelvis Other: unremarkable Skin General skin exam: no rashes or lesions noted Neuro General: patient oriented x3 Extrem Other: 1+ edema General: Yes normal to inspection Psych Mental Status: mental status grossly normal Objective Labs and Meds 04/16/24 08:20 04/15/24 21:09 Lab results: Laboratory Results - last 24 hr 04/13/24 04/15/24 04/15/24 16:55 13:45 16:29 WBC RBC Hgb Hct MCV MCH MCHC RDW Plt Count MPV Immature Gran % (Auto) Neut % (Auto) Lymph % (Auto) [place] % (Auto) Eos % (Auto) Baso % (Auto) Lymph # (Auto) [place] # (Auto) Eos # (Auto) Baso # (Auto) Abs Immat Gran (auto) Absolute Neuts (auto) Absolute Nucleated RBC Nucleated RBC % (auto) Sodium Potassium Chloride Carbon Dioxide Anion Gap BUN Creatinine Estim Creat Clear Calc Estimated GFR POC Glucose Random Glucose Calcium Magnesium Total Bilirubin AST ALT Alkaline Phosphatase Lactate Dehydrogenase B-Natriuretic Peptide 1720 H Total Protein Albumin Lipase Stool Occult Blood NEGATIVE Urine Immunofixation SEE NOTE 04/15/24 04/16/24 04/16/24 21:09 07:21 08:20 WBC 8.7 RBC 2.80 L Hgb 7.9 L 8.0 L Hct 24.0 L 24.5 L MCV 85.7 MCH 28.2 MCHC 32.9 RDW 24.8 H Plt Count 346 MPV 10.3 Immature Gran % (Auto) 1.3 H Neut % (Auto) 80.0 H Lymph % (Auto) 8.6 L [place] % (Auto) 8.5 Eos % (Auto) 1.4 Baso % (Auto) 0.2 Lymph # (Auto) 0.8 L [place] # (Auto) 0.7 Eos # (Auto) 0.1 Baso # (Auto) 0.0 Abs Immat Gran (auto) 0.11 H Absolute Neuts (auto) 7.0 Absolute Nucleated RBC 0.000 Nucleated RBC % (auto) 0.0 Sodium 130 L Potassium 4.2 Chloride 93 L Carbon Dioxide 23 Anion Gap 18 BUN 80 H Creatinine 2.00 H Estim Creat Clear Calc 28.4 Estimated GFR 32 POC Glucose 103 Random Glucose 109 Calcium 8.6 Magnesium 2.5 Total Bilirubin 1.1 H AST 43 H ALT 25 Alkaline Phosphatase 189 H Lactate Dehydrogenase 247 B-Natriuretic Peptide Total Protein 6.3 L Albumin 3.4 L Lipase 39 Stool Occult Blood Urine Immunofixation Imaging Radiologist's impression: Impressions Abdomen/Pelvis CT 04/15/24 21:25 IMPRESSION: 1. No bowel obstruction. 2. Moderate ascites. 3. Colonic diverticulosis. 4. Cholelithiasis. Fleischner guidelines were followed. Electronically signed by: Sebastián Venegas MD 04/15/2024 10:34 PM EDT RP Progress Note: A&P Assessment and plan (1) Acute on chronic diastolic (congestive) heart failure: Status: Acute Plan In the most recent echocardiogram, LVEF is 46%. Basal inferior akinesis. Mild aortic regurgitation; [id number] mitral regurgitation; mild tricuspid regurgitation with mild pulmonary hypertension. CT scan describes moderate ascites. Input/output charting--8.3 L but not clear how accurate it is as input his only 2.3 L for the last 3 days. Patient still feels volume overloaded and also has some respiratory symptoms like cough. Hence consider respiratory viral panel. BUN is high but stable. Creatinine is also stable. Continue Bumex drip, add metolazone and also acetazolamide. Plan for ascitic tap noted. That seems reasonable. Discussed with Dr. Blas. Discussed with RN. Time Spent With Patient Time: Total time managing care of this patient today ____ minutes. Progress Note: Quality Stroke Does the patient have a stroke diagnosis?: No Procedures Date of Service Date of Service: 04/16/24
[2024-04-16 11:08] LABS: Glucose, Whole Blood 115 mg/dL (60-115)
[2024-04-16 12:51] LABS: MN% 76.3 %; PMN% 23.7 %; RBC Peritoneal Fluid 0.002 X10*6/uL; WBC Peritoneal Fluid 0.332 X10*3/uL
[2024-04-16 12:52] LABS: Adenovirus PCR Not Detected (Not Detect.); Bordetella parapertussis PCR Not Detected (Not Detect.); Bordetella pertussis PCR Not Detected (Not Detect.); Chlamydia pneumoniae PCR Not Detected (Not Detect.); Coronavirus 229E PCR Not Detected (Not Detect.); Coronavirus HKU1 PCR Not Detected (Not Detect.); Coronavirus NL63 PCR Not Detected (Not Detect.); Coronavirus OC43 PCR Not Detected (Not Detect.); Human metapneumovirus PCR Not Detected (Not Detect.); Influenza A PCR Not Detected (Not Detect.); Influenza B PCR Not Detected (Not Detect.); Mycoplasma pneumoniae PCR Not Detected (Not Detect.); Parainfluenza 1 PCR Not Detected (Not Detect.); Parainfluenza 2 PCR Not Detected (Not Detect.); Parainfluenza 3 PCR Not Detected (Not Detect.); Parainfluenza 4 PCR Not Detected (Not Detect.); RSV PCR Not Detected (Not Detect.); Rhino/Enterovirus PCR Not Detected (Not Detect.)
--- NOTE | 2024-04-16 12:58 | PM.PROC ---
Brief Operative Note Date of procedure: 04/16/24 Pre-op diagnosis: Ascites, LIBRA Post-op diagnosis: same Procedure: US paracentesis 2.0 L yellow fluid removed and sent for analysis. No immediate complications. Anesthesia: local
[2024-04-16 13:06] LABS: SARS-CoV-2 PCR Not Detected (Not Detect.)
[2024-04-16 13:35] LABS: BF Shift QC OK YES; Lymphocyte Peritoneal Fl 24 %; Monocytes Peritoneal Fl 18 %; Neutrophils Peritoneal Fluid 31 %; Other Peritioneal Fl 27 %
--- NOTE | 2024-04-16 13:44 | P.PNIM_ITS ---
Subjective Subjective Date of Service: 04/16/24 Interval History: chf execerebation ? sbp Review of Systems sob seems improving has cough had nausea/vomiting episode last night Physical Exam 2 Vital Signs: Vital Signs: Last Vital Signs Temp 97.6 F 04/16/24 07:18 Pulse 60 04/16/24 08:42 Resp 20 04/16/24 07:18 BP 100/52 L 04/16/24 08:42 Pulse Ox 98 04/16/24 08:42 O2 Del Method Room Air 04/16/24 07:18 BMI result Body Mass Index 32.1 General: AOx3, no acute distress Resp: air entry fair but has cracles at bases left>right. CVS: S1, S2, RRR GI: +BS, NT,nd ,bs present has ascitis Skin: Warm, dry Extremities: 2-3+ pitting edema bilateral lower extremities Psych: Appropriate affect Objective Data Active Medications Acetaminophen (Acetaminophen 325 Mg Tablet) 650 mg PO Q6H PRN PRN Reason: Pain, Mild (Pain Scale 1-3), fever or headache Last Admin: 04/15/24 05:00 Dose: 650 mg Documented By: ERMA Albuterol/Ipratropium (Albuterol/Iprat 2.5/0.5mg 3 Ml Ampul.Neb) 3 ml INHALE Q4H PRN PRN Reason: Wheezing Last Admin: 04/14/24 08:24 Dose: 3 ml Documented By: TATI Allopurinol (Allopurinol 100 Mg Tablet) 100 mg PO DAILY@0900 [facility] Last Admin: 04/16/24 10:59 Dose: Not Given Documented By: JASON Non-Admin Reason: Nausea Amiodarone HCl (Amiodarone Hcl 200 Mg Tablet) 200 mg PO DAILY@1700 [facility] Last Admin: 04/15/24 17:09 Dose: 200 mg Documented By: ESME Atorvastatin Calcium (Atorvastatin Calcium 40 Mg Tablet) 40 mg PO BEDTIME [facility] Last Admin: 04/15/24 20:57 Dose: Not Given Documented By: WALDO Non-Admin Reason: NPO Calcium Carbonate (Calcium Carbonate 750 Mg Tab.Chew) 750 mg PO Q4H PRN PRN Reason: Heartburn Cilostazol (Cilostazol 50 Mg Tablet) 50 mg PO BID [facility] Last Admin: 04/16/24 11:00 Dose: Not Given Documented By: JASON Non-Admin Reason: Nausea Ferrous Sulfate (Ferrous Sulfate 324 Mg Tablet.) 324 mg PO DAILY@0600 [facility] Last Admin: 04/16/24 06:27 Dose: 324 mg Documented By: WALDO Finasteride (Finasteride 5 Mg Tablet) 5 mg PO DAILY@0900 [facility] Last Admin: 04/16/24 11:00 Dose: Not Given Documented By: JASON Non-Admin Reason: Nausea Gabapentin (Gabapentin 600 Mg Tablet) 600 mg PO BEDTIME [facility] Last Admin: 04/15/24 20:58 Dose: Not Given Documented By: WALDO Non-Admin Reason: NPO Guaifenesin (Guaifenesin 100 Mg/5 Ml 5 Ml Liquid) 5 ml PO Q4H PRN PRN Reason: Cough Last Admin: 04/14/24 20:26 Dose: 5 ml Documented By: ILSA Bumetanide 25 mg/ IV (Miscellaneous Supplies) 100 mls @ 4 mls/hr IVCONT .Q24H [facility] Last Admin: 04/15/24 15:32 Dose: 1 mg/hr, 4 mls/hr Documented By: ESME Albumin Human (Kedbumin 25 %) 100 mls @ 100 mls/hr IV Q6H [facility] Stop: 04/17/24 03:59 Last Infusion: 04/16/24 11:35 Dose: 0 mls/hr Documented By: JASON Levothyroxine Sodium (Levothyroxine Sodium 88 Mcg Tablet) 88 mcg PO DAILY@0600 [facility] Last Admin: 04/16/24 06:27 Dose: 88 mcg Documented By: WALDO Lorazepam (Lorazepam 0.5 Mg Tablet) 0.5 mg PO DAILY PRN PRN Reason: Anxiety Last Admin: 04/13/24 20:54 Dose: 0.5 mg Documented By: ANA Comments: requested for anxiety. Magnesium Hydroxide (Milk Of Magnesia 30 Ml Oral.Susp) 30 ml PO DAILY PRN PRN Reason: Constipation Magnesium Oxide (Magnesium Oxide 400 Mg Tablet) 800 mg PO BID [facility] Last Admin: 04/16/24 11:00 Dose: Not Given Documented By: JASON Non-Admin Reason: Nausea Melatonin (Melatonin 3 Mg Tablet) 6 mg PO BEDTIME PRN PRN Reason: Insomnia Metolazone (Metolazone 5 Mg Tablet) 5 mg PO DAILY PRN PRN Reason: Edema Ondansetron HCl (Ondansetron Hcl 4 Mg/2 Ml Vial) 4 mg IVPUSH Q6H PRN PRN Reason: Nausea and Vomiting Pantoprazole Sodium (Pantoprazole Sodium 20 Mg Tablet.Dr) 40 mg PO DAILY@0630 [facility] Last Admin: 04/16/24 06:27 Dose: 40 mg Documented By: WALDO Potassium Chloride (Potassium Chloride Er 20 Meq Tab.Er.Prt) 40 meq PO DAILY [facility] Last Admin: 04/16/24 11:00 Dose: Not Given Documented By: JASON Non-Admin Reason: Nausea Rivaroxaban (Rivaroxaban 15 Mg Tablet) 15 mg PO DAILY@1700 [facility] Last Admin: 04/15/24 17:09 Dose: 15 mg Documented By: ESME Sodium Chloride (0.9 % Sodium Chloride Flush 3 Ml Syringe) 3 ml IVFLUSH QSHIFT [facility] Last Admin: 04/16/24 10:59 Dose: Not Given Documented By: JASON Non-Admin Reason: IV Running Labs 04/16/24 08:20 04/15/24 21:09 Labs: Laboratory Results - last 24 hr 04/15/24 04/15/24 04/15/24 13:45 16:29 21:09 MCV 85.7 MCH 28.2 MCHC 32.9 RDW 24.8 H Plt Count 346 MPV 10.3 Immature Gran % (Auto) 1.3 H Neut % (Auto) 80.0 H Lymph % (Auto) 8.6 L [place] % (Auto) 8.5 Eos % (Auto) 1.4 Baso % (Auto) 0.2 Lymph # (Auto) 0.8 L [place] # (Auto) 0.7 Eos # (Auto) 0.1 Baso # (Auto) 0.0 Abs Immat Gran (auto) 0.11 H Absolute Neuts (auto) 7.0 Absolute Nucleated RBC 0.000 Nucleated RBC % (auto) 0.0 Anion Gap 18 Estim Creat Clear Calc 28.4 Estimated GFR 32 POC Glucose Random Glucose 109 Calcium 8.6 Magnesium 2.5 Total Bilirubin 1.1 H AST 43 H ALT 25 Alkaline Phosphatase 189 H Lactate Dehydrogenase 247 B-Natriuretic Peptide 1720 H Total Protein 6.3 L Albumin 3.4 L Lipase 39 Peritoneal WBC Peritoneal RBC Periton Neutrophils Periton Lymphocytes Peritoneal Monocytes Peritoneal Other Cells Stool Occult Blood NEGATIVE Respiratory Panel [place] Adenovirus (Rapid PCR) B.pert (TEM-PCR) B.parapertussis DNA PCR C. pneumoniae DNA (PCR) Coronavirus OC43 (PCR) Coronavirus HKU1 (PCR) Coronavirus 229E (PCR) Coronavirus NL63 (PCR) Human Metapneumovir PCR Influenza A (RT-PCR) Influenza B (RT-PCR) M. pneumoniae (PCR) Parainfluenza 1 (PCR) Parainfluenza 2 (PCR) Parainfluenza 3 (PCR) Parainfluenza 4 (PCR) RSV (PCR) Entero/Rhino (PCR) SARS-CoV-2 RNA (RT-PCR) 04/16/24 04/16/24 04/16/24 07:21 11:04 11:05 MCV MCH MCHC RDW Plt Count MPV Immature Gran % (Auto) Neut % (Auto) Lymph % (Auto) [place] % (Auto) Eos % (Auto) Baso % (Auto) Lymph # (Auto) [place] # (Auto) Eos # (Auto) Baso # (Auto) Abs Immat Gran (auto) Absolute Neuts (auto) Absolute Nucleated RBC Nucleated RBC % (auto) Anion Gap Estim Creat Clear Calc Estimated GFR POC Glucose 103 115 Random Glucose Calcium Magnesium Total Bilirubin AST ALT Alkaline Phosphatase Lactate Dehydrogenase B-Natriuretic Peptide Total Protein Albumin Lipase Peritoneal WBC Peritoneal RBC Periton Neutrophils Periton Lymphocytes Peritoneal Monocytes Peritoneal Other Cells Stool Occult Blood Respiratory Panel Morrison See Note Adenovirus (Rapid PCR) Not Detected B.pert (TEM-PCR) Not Detected B.parapertussis DNA PCR Not Detected C. pneumoniae DNA (PCR) Not Detected Coronavirus OC43 (PCR) Not Detected Coronavirus HKU1 (PCR) Not Detected Coronavirus 229E (PCR) Not Detected Coronavirus NL63 (PCR) Not Detected Human Metapneumovir PCR Not Detected Influenza A (RT-PCR) Not Detected Influenza B (RT-PCR) Not Detected M. pneumoniae (PCR) Not Detected Parainfluenza 1 (PCR) Not Detected Parainfluenza 2 (PCR) Not Detected Parainfluenza 3 (PCR) Not Detected Parainfluenza 4 (PCR) Not Detected RSV (PCR) Not Detected Entero/Rhino (PCR) Not Detected SARS-CoV-2 RNA (RT-PCR) Not Detected 04/16/24 11:50 MCV MCH MCHC RDW Plt Count MPV Immature Gran % (Auto) Neut % (Auto) Lymph % (Auto) [place] % (Auto) Eos % (Auto) Baso % (Auto) Lymph # (Auto) [place] # (Auto) Eos # (Auto) Baso # (Auto) Abs Immat Gran (auto) Absolute Neuts (auto) Absolute Nucleated RBC Nucleated RBC % (auto) Anion Gap Estim Creat Clear Calc Estimated GFR POC Glucose Random Glucose Calcium Magnesium Total Bilirubin AST ALT Alkaline Phosphatase Lactate Dehydrogenase B-Natriuretic Peptide Total Protein Albumin Lipase Peritoneal WBC 0.332 Peritoneal RBC 0.002 Periton Neutrophils 31 Periton Lymphocytes 24 Peritoneal Monocytes 18 Peritoneal Other Cells 27 Stool Occult Blood Respiratory Panel [place] Adenovirus (Rapid PCR) B.pert (TEM-PCR) B.parapertussis DNA PCR C. pneumoniae DNA (PCR) Coronavirus OC43 (PCR) Coronavirus HKU1 (PCR) Coronavirus 229E (PCR) Coronavirus NL63 (PCR) Human Metapneumovir PCR Influenza A (RT-PCR) Influenza B (RT-PCR) M. pneumoniae (PCR) Parainfluenza 1 (PCR) Parainfluenza 2 (PCR) Parainfluenza 3 (PCR) Parainfluenza 4 (PCR) RSV (PCR) Entero/Rhino (PCR) SARS-CoV-2 RNA (RT-PCR) Assessment and Plan (1) Acute on chronic combined systolic and diastolic CHF (congestive heart failure): Status: Resolved Plan 83-year-old male with a past medical history significant for cardiac arrest (03/2023) s/p biventricular ICD in place, HFrEF, CKD3, paroxysmal a fib on xarelto, CAD, PVD, HLD, BPH, unspecified asthma, GERD, gout and KEVIN on nasal CPAP presented to the ED today with worsening shortness of breath, dyspnea, weight gain and pedal edema for the past few weeks. He was discharged on 02/20 for a CHF exacerbation and new diuretics were added. He returns again today for CHF exacerbation. acute CHF exacerbation - chest x-ray with interstitial edema - BNP elevated at [id number] - troponin chronically elevated but stable - EKG stable from previous - monitor I's and O's neg 7 liter - daily weights cardiology saw patient - rec: adjust to 1 milligram/hour,added metolazone and dimox ovidio vs CKD 3 Creatinine improivng 2.48 Follow kidney function closely while on diuretics hypokalemia -repleted and resolved. Anemia of chronic disease H&H 9.29.5-trending down 02/06.5(seems similar) denies any ishmael bleeding or melena iron panel:low iron and sats but tibc and ferritin normal ,b12 and folate normal-?aocd fobt negative Continue iron supplementation, nephro need Follow CBC Elevated lft mild, Ascitis -? unclear etiology paracentesis -? sbp added ceftriaxone Gi- for ascitis ,elevated lft's anemia CAD Continue statin Paroxysmal AFib Continue metoprolol, amiodorone hold Xarelto due to anemia GERD PPI Patient requesting Flu shot. to give it while he is inpatient. Full Code. DVT Prophylaxis: On Xarelto ongoing hospitalization for treatment of?acute HFrEF exacerbation nonresponsive to outpatient p.o. medications. He will need inpatient treatment with IV diuretics that require close monitoring of kidney function and electrolyte levels. Quality Stroke Does the patient have a stroke diagnosis?: No VTE Prior VTE?: No VTE Risk Level:: Medical - moderate - high VTE Device Contraindication: Treatment Not Indicated VTE Drug Contraindication: N/A - Med Ordered
[2024-04-16] MEDS: cefTRIAXone sodium 1 GM VIAL IVPUSH (17:09)
[2024-04-16] MEDS: Amiodarone HCL 200 MG TABLET PO (17:17)
[2024-04-16] MEDS: Rivaroxaban 15 MG TABLET PO (17:17)
[2024-04-16] MEDS: metOLazone 5 MG TABLET PO (17:18)
[2024-04-16] MEDS: acetaZOLAMIDE 250 MG TABLET PO (17:18)
[2024-04-16] MEDS: 0.9 % Sodium Chloride Flush 3 ML SYRINGE IVFLUSH ×2 (17:21→20:46)
[2024-04-16] MEDS: Bumetanide 25 MG in Container,Empty 0 ML 4 MG IVCONT (17:22)
[2024-04-16] MEDS: Atorvastatin Calcium 40 MG TABLET PO (20:38)
[2024-04-16] MEDS: Gabapentin 600 MG TABLET PO (20:38)
[2024-04-16] MEDS: Magnesium Oxide 400 MG TABLET 800 MG PO (20:38)
[2024-04-16] MEDS: cilostazoL 50 MG TABLET PO (20:38)
[2024-04-16] MEDS: LORazepam 0.5 MG TABLET PO (20:43)
[2024-04-16] MEDS: guaiFENesin 100 MG/5 ML 5 ML LIQUID PO (20:44)
[2024-04-17] VITALS (10 sets, daily range): BP systolic 82–111; BP diastolic 40–58; PULSE 61–96; RESP 13–24; TEMP 36.4–37.1; O2SAT 97–100
[2024-04-17] MEDS: cefTRIAXone sodium 1 GM VIAL IVPUSH ×2 (02:13→13:20)
[2024-04-17] MEDS: Albumin Human 25 % 100 ML IV ×4 (02:39→20:22)
[2024-04-17] MEDS: Levothyroxine Sodium 88 MCG TABLET PO (06:54)
[2024-04-17] MEDS: Pantoprazole Sodium 20 MG TABLET.DR 40 MG PO (06:54)
[2024-04-17] MEDS: Ferrous Sulfate 324 MG TABLET.DR PO (06:54)
[2024-04-17] MEDS: allopurinoL 100 MG TABLET PO (08:21)
[2024-04-17] MEDS: 0.9 % Sodium Chloride Flush 3 ML SYRINGE IVFLUSH ×3 (08:21→20:22)
[2024-04-17] MEDS: Potassium Chloride ER 20 MEQ TAB.ER.PRT 40 MEQ PO ×2 (08:21→16:18)
[2024-04-17] MEDS: Magnesium Oxide 400 MG TABLET 800 MG PO ×2 (08:21→20:19)
[2024-04-17] MEDS: Acetaminophen 325 MG TABLET 650 MG PO (08:21)
[2024-04-17] MEDS: Finasteride 5 MG TABLET PO (08:21)
[2024-04-17] MEDS: cilostazoL 50 MG TABLET PO ×2 (08:21→20:19)
[2024-04-17 08:33] LABS: B Type Natriuretic Peptide 1905 pg/mL (<100)
[2024-04-17] MEDS: ondansetron HCL 4 MG/2 ML VIAL IVPUSH ×2 (08:57→16:23)
[2024-04-17 09:24] LABS: Anion Gap 19 (12-20); Blood Urea Nitrogen 75 mg/dL (9-16); Calcium 8.2 mg/dL (8.4-10.2); Carbon Dioxide 28 mmol/L (22-29); Chloride 90 mmol/L (96-108); Creatinine Clr Calc Pharmacy 31.6; Estimated Glomerular Filt Rate 36; Glucose Random 122 mg/dL (60-115); Sodium 135 mmol/L (135-145)
--- NOTE | 2024-04-17 09:33 | PM.GICN ---
History of Present Illness Data of Consult Service Date: 04/17/24 Requesting physician: Nicole Blas Primary Care Provider: Prince Manning MD HPI Reason for consult: ascites, SBP, elevated LFTs, anemia 83 YM with hx of cardiac arrest (03/2023) s/p biventricular ICD in place, HFrEF, CKD3, paroxysmal a fib on xarelto, CAD, PVD unspecified asthma, GERD, gout and KEVIN on nasal CPAP admitted to [facility] on 04/12/24 with worsening shortness of breath, dyspnea, weight gain and pedal edema for the preceding few weeks. Pt reported, he went from 169 lb to 193 lb. Pt notes he was told he had some liver problems since he had cardiac arrest in 05/2023 He was started on oral iron a few weeks ago for NEHA He denied heartburn, dysphagia recent change in bowel habits, black stools or blood in the stools, headache, fever, chills, nausea, vomiting, nasal congestion or any sick contacts recently. Pt has LIBRA on CKD felt by Nephrology to be related to hypoperfusion in setting of heart failure exacerbation (Cardio-renal syndrome) Iron studies cw NEHA - pt is on oral iron replacement for the past few months Patient reports having a colonoscopy at [facility] approximately 7 years ago which showed diverticulosis and no polyps. Patient was advised to have a follow-up colonoscopy in 10 years or discontinue screening. Pt admits to past smoking and binge drinking > 40 yrs ago. 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 Family Hx is positive for Colon cancer in a brother who in his 60's from heart failure 04/15/[address] SCAN SHOWED: LIVER, GALLBLADDER, AND BILIARY TREE: The liver is normal in size, shape, and attenuation. No focal hepatic lesion or biliary ductal dilatation is present. The gallbladder is unremarkable with no evidence of radiopaque gallstones, gallbladder wall thickening, or obvious pericholecystic inflammatory changes. 1. No bowel obstruction. 2. Moderate ascites. 3. Colonic diverticulosis. 4. Cholelithiasis. Review of Systems Review of Systems: Yes all other systems are reviewed and are negative [facility] Past Medical History Medical History Ischemic cardiomyopathy History of torsades de pointes Atherosclerotic cardiovascular disease Elevated serum creatinine Biventricular ICD (implantable cardioverter-defibrillator) in place Syncope RBBB PVD (peripheral vascular disease) Hx of thyroid nodule GERD (gastroesophageal reflux disease) CAD (coronary artery disease) BPH (benign prostatic hyperplasia) Asthma Atrial fibrillation Family History Family History Mother Breast cancer Father Heart attack Brother Stomach cancer Brother Heart disease Surgical History Surgical History Hx of CABG Hx of cardiac cath H/O right knee surgery H/O heart surgery Social History Social History Household Members: None Housing: House Do you presently have visiting nurse or other home services: Yes (cleaning lady) Alcohol intake: former Comment: pt refusing red socks, alarms, and camera Patient Tobacco Use Status: Former Tobacco user Years Smoked: 25 +/- Smoked in Last 30 Days: No Use of substances other than those prescribed or required for medical reasons: No Currently Displaying Signs/Symptoms of Drug Intoxication Withdrawal: No Advance Directives: Yes Advance Directives on File: Yes Advance Directives Date on File: 10/31/23 Do you have a plan to hurt others: No Plan Recently lost weight without trying: No service: Yes Meds Allergies Allergy/AdvReac Type Severity Reaction Status Date / Time doxycycline Allergy Unknown Unknown Verified 04/12/24 09:57 narcotics AdvReac Nausea and Uncoded 02/18/24 14:29 Vomiting, hypotensive Active Medications: Current Medications Acetaminophen (Acetaminophen 325 Mg Tablet) 650 mg PO Q6H PRN PRN Reason: Pain, Mild (Pain Scale 1-3), fever or headache Last Admin: 04/17/24 08:21 Dose: 650 mg Albuterol/Ipratropium (Albuterol/Iprat 2.5/0.5mg 3 Ml Ampul.Neb) 3 ml INHALE Q4H PRN PRN Reason: Wheezing Last Admin: 04/14/24 08:24 Dose: 3 ml Allopurinol (Allopurinol 100 Mg Tablet) 100 mg PO DAILY@0900 [facility] Last Admin: 04/17/24 08:21 Dose: 100 mg Amiodarone HCl (Amiodarone Hcl 200 Mg Tablet) 200 mg PO DAILY@1700 [facility] Last Admin: 04/16/24 17:17 Dose: 200 mg Atorvastatin Calcium (Atorvastatin Calcium 40 Mg Tablet) 40 mg PO BEDTIME [facility] Last Admin: 04/16/24 20:38 Dose: 40 mg Benzonatate (Benzonatate 100 Mg Capsule) 100 mg PO TID PRN PRN Reason: Cough Calcium Carbonate (Calcium Carbonate 750 Mg Tab.Chew) 750 mg PO Q4H PRN PRN Reason: Heartburn Ceftriaxone Sodium (Ceftriaxone Sodium 1 Gm Vial) 1 gm IVPUSH Q12H [facility] Last Admin: 04/17/24 02:13 Dose: 1 gm Cilostazol (Cilostazol 50 Mg Tablet) 50 mg PO BID [facility] Last Admin: 04/17/24 08:21 Dose: 50 mg Ferrous Sulfate (Ferrous Sulfate 324 Mg Tablet.Dr) 324 mg PO DAILY@0600 [facility] Last Admin: 04/17/24 06:54 Dose: 324 mg Finasteride (Finasteride 5 Mg Tablet) 5 mg PO DAILY@0900 [facility] Last Admin: 04/17/24 08:21 Dose: 5 mg Gabapentin (Gabapentin 600 Mg Tablet) 600 mg PO BEDTIME [facility] Last Admin: 04/16/24 20:38 Dose: 600 mg Guaifenesin (Guaifenesin 100 Mg/5 Ml 5 Ml Liquid) 5 ml PO Q4H PRN PRN Reason: Cough Last Admin: 04/16/24 20:44 Dose: 5 ml Guaifenesin (Guaifenesin 200 Mg/10 Ml 10 Ml Liquid) 10 ml PO Q4H PRN PRN Reason: Cough Bumetanide 25 mg/ IV (Miscellaneous Supplies) 100 mls @ 4 mls/hr IVCONT .Q24H [facility] Last Admin: 04/16/24 17:22 Dose: 1 mg/hr, 4 mls/hr Albumin Human (Kedbumin 25 %) 100 mls @ 100 mls/hr IV Q6H [facility] Stop: 04/18/24 02:44 Last Admin: 04/17/24 08:56 Dose: 100 mls/hr Potassium Chloride (Potassium Chloride/H20) 10 meq in 100 mls @ 100 mls/hr IV Q1H [facility] Stop: 04/17/24 13:29 Levothyroxine Sodium (Levothyroxine Sodium 88 Mcg Tablet) 88 mcg PO DAILY@0600 [facility] Last Admin: 04/17/24 06:54 Dose: 88 mcg Loratadine (Loratadine 10 Mg Tablet) 10 mg PO DAILY [facility] Lorazepam (Lorazepam 0.5 Mg Tablet) 0.5 mg PO DAILY PRN PRN Reason: Anxiety Last Admin: 04/16/24 20:43 Dose: 0.5 mg Magnesium Hydroxide (Milk Of Magnesia 30 Ml Oral.Susp) 30 ml PO DAILY PRN PRN Reason: Constipation Magnesium Oxide (Magnesium Oxide 400 Mg Tablet) 800 mg PO BID [facility] Last Admin: 04/17/24 08:21 Dose: 800 mg Melatonin (Melatonin 3 Mg Tablet) 6 mg PO BEDTIME PRN PRN Reason: Insomnia Metolazone (Metolazone 5 Mg Tablet) 5 mg PO DAILY PRN PRN Reason: Edema Ondansetron HCl (Ondansetron Hcl 4 Mg/2 Ml Vial) 4 mg IVPUSH Q6H PRN PRN Reason: Nausea and Vomiting Last Admin: 04/17/24 08:57 Dose: 4 mg Pantoprazole Sodium (Pantoprazole Sodium 20 Mg Tablet.Dr) 40 mg PO DAILY@0630 [facility] Last Admin: 04/17/24 06:54 Dose: 40 mg Potassium Chloride (Potassium Chloride Er 20 Meq Tab.Er.Prt) 40 meq PO DAILY [facility] Last Admin: 04/17/24 08:21 Dose: 40 meq Rivaroxaban (Rivaroxaban 15 Mg Tablet) 15 mg PO DAILY@1700 [facility] Last Admin: 04/16/24 17:17 Dose: 15 mg Sodium Chloride (0.9 % Sodium Chloride Flush 3 Ml Syringe) 3 ml IVFLUSH QSHIFT [facility] Last Admin: 04/17/24 08:21 Dose: 3 ml Home Medications ?Medication ?Instructions ?Recorded ?Confirmed ?Last Taken ?Type cilostazol 50 mg tablet 50 mg PO BID 06/18/21 04/12/24 04/12/24 History finasteride 5 mg tablet 5 mg PO DAILY@0900 06/18/21 04/12/24 04/12/24 History pantoprazole 40 mg tablet,delayed 40 mg PO DAILY@0630 06/18/21 04/12/24 04/12/24 History release allopurinol 100 mg tablet 100 mg PO DAILY@0900 05/13/24 10/28/24 10/28/24 History ferrous sulfate 325 mg (65 mg 325 mg PO DAILY@0602/09/24 04/12/24 04/12/24 History iron) tablet,delayed release lorazepam 0.5 mg tablet 0.5 mg PO DAILY PRN Anxiety 03/04/24 04/12/24 04/12/24 History levothyroxine 88 mcg tablet 88 mcg DAILY@0600 04/12/24 04/12/24 04/12/24 History metolazone 2.5 mg tablet 2.5 mg PO DAILY PRN Edema 04/12/24 04/12/24 04/12/24 History Physical Exam Vital Signs: Vital Signs: Last Vital Signs Temp 98.1 F 04/17/24 07:17 Pulse 88 04/17/24 07:17 Resp 16 04/17/24 07:17 BP 111/53 L 04/17/24 07:17 Pulse Ox 97 04/17/24 07:17 O2 Del Method Room Air 04/17/24 07:17 BMI result Body Mass Index 32.1 Const: General: no acute distress and ill appearing (Chronically ill-appearing) Nutritional Appearance: obese Orientation/consciousness: patient oriented x3 Limitations: physical limitations HEENT: Head: Yes normal to inspection Ears: hearing grossly normal bilaterally Eyes: Sclerae: sclerae normal Pupils: Equal, round and reactive pupils present Neck: Neck: Yes normal visual inspection Chest: Chest palpation & inspection: normal inspection of the chest Resp: Effort & Inspection: normal respiratory effort Auscultation: rhonchi (Bilateral rhonchi) and diminished lung sounds Cardio: Palpation: normal PMI Rate: regular rate Rhythm: regular rhythm Heart sounds: S1 normal heart sound present, S2 normal heart sound present and no murmurs GI: Inspection: Yes distended (Due to ascites) and Yes obesity Palpation (GI): Soft to palpation, nontender and No hepatosplenomegaly present Auscultation: normal bowel sounds Rectal Exam - Male: Yes deferred Skin: General skin exam: no rashes or lesions noted Neuro: General: patient oriented x3, gait normal and moves all extremities Cranial nerves: Yes Equal, round and reactive pupils present Extrem: General: Yes pedal edema (Bilateral 1+ pitting edema) Psych: Appearance: grossly normal Mental Status: mental status grossly normal Results Labs 11/01/24 08:20 04/17/24 08:03 Labs: BMP 04/17/24 08:03 Sodium 135 Potassium 2.0 L* D Chloride 90 L Carbon Dioxide 28 BUN 75 H Creatinine 1.80 H Calcium 8.2 L Microbiology Microbiology Results: Microbiology 04/16/24 11:50 Abdominal Fluid Gram Stain - Final 04/16/24 11:50 Abdominal Fluid Routine Culture - Preliminary No growth to date. 04/16/24 11:50 Abdominal Fluid Anaerobic Culture - Preliminary No growth to date. Assessment and Plan (1) Elevated LFTs: Status: Acute (2) Iron deficiency anemia: Status: Acute Plan 83 YM with hx of cardiac arrest (03/2023) s/p biventricular ICD in place, HFrEF, CKD3, paroxysmal a fib on xarelto, CAD, PVD unspecified asthma, GERD, gout and KEVIN on nasal CPAP admitted to [facility] on 04/12/24 with worsening shortness of breath, dyspnea, weight gain and pedal edema with wt gain from 169 lb to 193 lb. Pt notes he was told he had some liver problems since he had cardiac arrest in 05/2023 He was started on oral iron a few weeks ago for NEHA Iron studies cw NEHA - pt is on oral iron replacement for the past few months Abd CT scan showed a normal liver, cholelithiasis and ascites In the most recent echocardiogram, LVEF is 46%. Basal inferior akinesis. Mild aortic regurgitation; [id number] mitral regurgitation; mild tricuspid regurgitation with mild pulmonary hypertension. 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 No SBP based on ascitic fluid analysis. RECOMMENDATIONS 1. Continue PO Pantoprazole 40 mg daily 2. Check hepatitis serologies and AMA - added to am labs 3. Continue oral iron for NEHA. Pt is not a candidate for endoscopic evaluation at present given advanced cardiac disease Procedures Date of Service Date of Service: 04/17/24
[2024-04-17 09:45] LABS: Magnesium 2.6 mg/dL (1.6-2.6)
[2024-04-17] MEDS: Potassium Chloride/H20 10 MEQ/100 ML PIGGYBACK 100 MEQ IV ×9 (09:58→23:44)
[2024-04-17] MEDS: guaiFENesin 200 MG/10 ML 10 ML LIQUID PO ×3 (09:58→20:23)
[2024-04-17] MEDS: Loratadine 10 MG TABLET PO (09:59)
[2024-04-17 10:12] LABS: Alanine Aminotransferase 16 U/L (0-40); Albumin Level 3.8 g/dL (3.5-5.0); Aspartate Amino Transferase 30 U/L (5-37); Bilirubin Direct 0.5 mg/dL (0.0-0.5); Bilirubin Total 0.9 mg/dL (0.0-1.0)
--- NOTE | 2024-04-17 10:23 | PM.PNCARD ---
Subjective Subjective Date of Service: 04/17/24 Interval history: More or less the same. Underwent ascitic tap yesterday. After that, he states he got some relief. Today, he had some vomiting. He seems to be having cough/respiratory symptoms. Not clear if he is having concurrent bronchitis. Review of Systems Review of Systems Yes all other systems are reviewed and are negative Constitutional: Reports as per HPI and Reports no additional constitutional complaints Eyes: Reports as per HPI and Denies no additional eye complaints Denies system reviewed and no additional complaints, except as documented and Reports as per HPI Cardiovascular: Reports as per HPI, Reports no additional cardiovascular complaints, Denies acrocyanosis, Denies cool extremities, Denies chest pain, Denies leg edema, Denies lightheadedness, Denies palpitations and Denies dyspnea Respiratory: Reports as per HPI, Denies no additional respiratory complaints and Denies dyspnea Gastrointestinal: Reports as per HPI and Denies no additional gastrointestinal complaints Genitourinary: Reports no additional male genitourinary complaints and Reports as per HPI Musculoskeletal: Reports no additional musculoskeletal complaints and Reports as per HPI Skin/Breast: Reports system reviewed and no additional complaints, except as docu Reports system reviewed and no additional complaints, except as documented and Reports as per HPI Psychiatric: Reports no additional psychiatric complaints and Reports as per HPI Endocrine: Reports no additional endocrine complaints, Reports as per HPI and Denies palpitations Hematologic/Lymphatic: Reports no additional hematologic/lymphatic complaints and Reports as per HPI Allergic/Immunologic: Reports no additional allergic/immunologic complaints and Reports as per HPI Physical Exam Vital Signs: Last Vital Signs Temp 98.1 F 04/17/24 07:17 Pulse 88 04/17/24 07:17 Resp 16 04/17/24 07:17 BP 111/53 L 04/17/24 07:17 Pulse Ox 97 04/17/24 07:17 O2 Del Method Room Air 04/17/24 07:17 BMI result Body Mass Index 32.1 Const General: comfortable and no acute distress Orientation/consciousness: patient oriented x3 HEENT Other: Unremarkable Head: Yes normal to inspection Neck Neck: Yes normal visual inspection Chest Chest palpation & inspection: normal inspection of the chest Resp Other: Bilateral rhonchi Auscultation: rhonchi and diminished lung sounds Cardio Palpation: normal PMI Heart sounds: S1 normal heart sound present, S2 normal heart sound present, no gallops, no murmurs and no rubs GI Other: Distended Palpation (GI): Soft to palpation Back/Spine/Pelvis Other: unremarkable Skin General skin exam: no rashes or lesions noted Neuro General: patient oriented x3 Extrem Other: 1+ edema General: Yes normal to inspection Psych Mental Status: mental status grossly normal Objective Labs and Meds 04/16/24 08:20 04/17/24 08:03 Lab results: Laboratory Results - last 24 hr 04/16/24 04/16/24 04/16/24 11:04 11:05 11:50 Sodium Potassium Chloride Carbon Dioxide Anion Gap BUN Creatinine Estim Creat Clear Calc Estimated GFR POC Glucose 115 Random Glucose Calcium Magnesium Total Bilirubin Direct Bilirubin AST ALT B-Natriuretic Peptide Total Protein Albumin Peritoneal WBC 0.332 Peritoneal RBC 0.002 Periton Neutrophils 31 Periton Lymphocytes 24 Peritoneal Monocytes 18 Peritoneal Other Cells 27 Respiratory Panel [place] See Note Adenovirus (Rapid PCR) Not Detected B.pert (TEM-PCR) Not Detected B.parapertussis DNA PCR Not Detected C. pneumoniae DNA (PCR) Not Detected Coronavirus OC43 (PCR) Not Detected Coronavirus HKU1 (PCR) Not Detected Coronavirus 229E (PCR) Not Detected Coronavirus NL63 (PCR) Not Detected Human Metapneumovir PCR Not Detected Influenza A (RT-PCR) Not Detected Influenza B (RT-PCR) Not Detected M. pneumoniae (PCR) Not Detected Parainfluenza 1 (PCR) Not Detected Parainfluenza 2 (PCR) Not Detected Parainfluenza 3 (PCR) Not Detected Parainfluenza 4 (PCR) Not Detected RSV (PCR) Not Detected Entero/Rhino (PCR) Not Detected SARS-CoV-2 RNA (RT-PCR) Not Detected 04/17/24 08:03 Sodium 135 Potassium 2.0 L* D Chloride 90 L Carbon Dioxide 28 Anion Gap 19 BUN 75 H Creatinine 1.80 H Estim Creat Clear Calc 31.6 Estimated GFR 36 POC Glucose Random Glucose 122 H Calcium 8.2 L Magnesium 2.6 Total Bilirubin 0.9 Direct Bilirubin 0.5 AST 30 ALT 16 B-Natriuretic Peptide 1905 H Total Protein 6.0 L Albumin 3.8 Peritoneal WBC Peritoneal RBC Periton Neutrophils Periton Lymphocytes Peritoneal Monocytes Peritoneal Other Cells Respiratory Panel [place] Adenovirus (Rapid PCR) B.pert (TEM-PCR) B.parapertussis DNA PCR C. pneumoniae DNA (PCR) Coronavirus OC43 (PCR) Coronavirus HKU1 (PCR) Coronavirus 229E (PCR) Coronavirus NL63 (PCR) Human Metapneumovir PCR Influenza A (RT-PCR) Influenza B (RT-PCR) M. pneumoniae (PCR) Parainfluenza 1 (PCR) Parainfluenza 2 (PCR) Parainfluenza 3 (PCR) Parainfluenza 4 (PCR) RSV (PCR) Entero/Rhino (PCR) SARS-CoV-2 RNA (RT-PCR) Imaging Radiologist's impression: Impressions Chest X-Ray 04/16/24 10:40 IMPRESSION: No acute cardiopulmonary findings. Electronically signed by: Sukhwinder Mo MD 04/16/2024 02:40 PM EDT RP Progress Note: A&P Assessment and plan (1) Acute on chronic diastolic (congestive) heart failure: Status: Acute (2) Hypokalemia: Status: Acute Plan In the most recent echocardiogram, LVEF is 46%. Basal inferior akinesis. Mild aortic regurgitation; [id number] mitral regurgitation; mild tricuspid regurgitation with mild pulmonary hypertension. CT scan describes moderate ascites. Input/output charting--9.2 L + ascitic tap. Unclear if he has any respiratory infections to as he is coughing a lot. As he is profoundly hypokalemic, we will stop the diuretics completely for today. Replete aggressively at discussed with Dr. Blas about this. Overall, guarded prognosis. Time Spent With Patient Time: Total time managing care of this patient today ____ minutes. Progress Note: Quality Stroke Does the patient have a stroke diagnosis?: No Procedures Date of Service Date of Service: 04/17/24
[2024-04-17] MEDS: Potassium Chloride ER 20 MEQ TAB.ER.PRT 60 MEQ PO (10:51)
[2024-04-17 11:16] LABS: Alkaline Phosphatase 134 U/L (39-117)
[2024-04-17] MEDS: 0.9 % Sodium Chloride 1,000 ML 250 ML IVCONT (12:18)
--- NOTE | 2024-04-17 12:54 | HO.PM.IMPN ---
Subjective Subjective Date of Service: 04/17/24 Interval History: chf 1 episode of yellowish vomiting hypokalemia Review of Systems has productive cough no fever or abd pain ,passing flatus and bm's Physical Exam Vital Signs: Vital Signs: Last Vital Signs Temp 97.9 F 04/17/24 11:08 Pulse 61 04/17/24 11:08 Resp 20 04/17/24 11:08 BP 89/40 L 04/17/24 11:27 Pulse Ox 100 04/17/24 11:08 O2 Del Method Nasal Cannula 04/17/24 11:08 O2 Flow Rate 3 04/17/24 11:08 BMI result Body Mass Index 32.1 General: AOx3, no acute distress Resp: air entry fair dimished at bases. CVS: S1, S2, RRR GI: +BS, NT,nd ,bs present Skin: Warm, dry Extremities: 2+ pitting edema bilateral lower extremities Psych: Appropriate affect Objective Data Active Medications Acetaminophen (Acetaminophen 325 Mg Tablet) 650 mg PO Q6H PRN PRN Reason: Pain, Mild (Pain Scale 1-3), fever or headache Last Admin: 04/17/24 08:21 Dose: 650 mg Documented By: JOAQUIM Albuterol/Ipratropium (Albuterol/Iprat 2.5/0.5mg 3 Ml Ampul.Neb) 3 ml INHALE Q4H PRN PRN Reason: Wheezing Last Admin: 04/14/24 08:24 Dose: 3 ml Documented By: TATI Allopurinol (Allopurinol 100 Mg Tablet) 100 mg PO DAILY@0900 [facility] Last Admin: 04/17/24 08:21 Dose: 100 mg Documented By: JOAQUIM Amiodarone HCl (Amiodarone Hcl 200 Mg Tablet) 200 mg PO DAILY@1700 [facility] Last Admin: 04/16/24 17:17 Dose: 200 mg Documented By: SAVANNA Atorvastatin Calcium (Atorvastatin Calcium 40 Mg Tablet) 40 mg PO BEDTIME [facility] Last Admin: 04/16/24 20:38 Dose: 40 mg Documented By: KELSEY Benzonatate (Benzonatate 100 Mg Capsule) 100 mg PO TID PRN PRN Reason: Cough Calcium Carbonate (Calcium Carbonate 750 Mg Tab.Chew) 750 mg PO Q4H PRN PRN Reason: Heartburn Ceftriaxone Sodium (Ceftriaxone Sodium 1 Gm Vial) 1 gm IVPUSH Q12H [facility] Last Admin: 04/17/24 02:13 Dose: 1 gm Documented By: KELSEY Cilostazol (Cilostazol 50 Mg Tablet) 50 mg PO BID [facility] Last Admin: 04/17/24 08:21 Dose: 50 mg Documented By: JOAQUIM Ferrous Sulfate (Ferrous Sulfate 324 Mg Tablet.) 324 mg PO DAILY@0600 [facility] Last Admin: 04/17/24 06:54 Dose: 324 mg Documented By: KELSEY Finasteride (Finasteride 5 Mg Tablet) 5 mg PO DAILY@0900 [facility] Last Admin: 04/17/24 08:21 Dose: 5 mg Documented By: JOAQUIM Gabapentin (Gabapentin 600 Mg Tablet) 600 mg PO BEDTIME [facility] Last Admin: 04/16/24 20:38 Dose: 600 mg Documented By: KELSEY Guaifenesin (Guaifenesin 200 Mg/10 Ml 10 Ml Liquid) 10 ml PO Q4H PRN PRN Reason: Cough Last Admin: 04/17/24 09:58 Dose: 10 ml Documented By: JOAQUIM Albumin Human (Kedbumin 25 %) 100 mls @ 100 mls/hr IV Q6H [facility] Stop: 04/18/24 02:44 Last Infusion: 04/17/24 10:02 Dose: Infused Documented By: JOAQUIM Potassium Chloride (Potassium Chloride/H20) 10 meq in 100 mls @ 100 mls/hr IV Q1H [facility] Stop: 04/17/24 13:29 Last Admin: 04/17/24 12:10 Dose: 100 mls/hr Documented By: JOAQUIM Potassium Chloride (Potassium Chloride/H20) 10 meq in 100 mls @ 100 mls/hr IV Q1H [facility] Stop: 04/17/24 17:59 Sodium Chloride (Ns) 1,000 mls @ 250 mls/hr IVCONT .Q4H [facility] Stop: 04/17/24 15:44 Last Admin: 04/17/24 12:18 Dose: 250 mls/hr Documented By: JOAQUIM Levothyroxine Sodium (Levothyroxine Sodium 88 Mcg Tablet) 88 mcg PO DAILY@0600 [facility] Last Admin: 04/17/24 06:54 Dose: 88 mcg Documented By: KELSEY Loratadine (Loratadine 10 Mg Tablet) 10 mg PO DAILY [facility] Last Admin: 04/17/24 09:59 Dose: 10 mg Documented By: JOAQUIM Lorazepam (Lorazepam 0.5 Mg Tablet) 0.5 mg PO DAILY PRN PRN Reason: Anxiety Last Admin: 04/16/24 20:43 Dose: 0.5 mg Documented By: KELSEY Magnesium Hydroxide (Milk Of Magnesia 30 Ml Oral.Susp) 30 ml PO DAILY PRN PRN Reason: Constipation Magnesium Oxide (Magnesium Oxide 400 Mg Tablet) 800 mg PO BID [facility] Last Admin: 04/17/24 08:21 Dose: 800 mg Documented By: JOAQUIM Melatonin (Melatonin 3 Mg Tablet) 6 mg PO BEDTIME PRN PRN Reason: Insomnia Metolazone (Metolazone 5 Mg Tablet) 5 mg PO DAILY PRN PRN Reason: Edema Ondansetron HCl (Ondansetron Hcl 4 Mg/2 Ml Vial) 4 mg IVPUSH Q6H PRN PRN Reason: Nausea and Vomiting Last Admin: 04/17/24 08:57 Dose: 4 mg Documented By: JOAQUIM Pantoprazole Sodium (Pantoprazole Sodium 20 Mg Tablet.) 40 mg PO DAILY@0630 [facility] Last Admin: 04/17/24 06:54 Dose: 40 mg Documented By: KELSEY Potassium Chloride (Potassium Chloride Er 20 Meq Tab.Er.Prt) 40 meq PO DAILY [facility] Last Admin: 04/17/24 08:21 Dose: 40 meq Documented By: JOAQUIM Rivaroxaban (Rivaroxaban 15 Mg Tablet) 15 mg PO DAILY@1700 [facility] Last Admin: 04/16/24 17:17 Dose: 15 mg Documented By: SAVANNA Sodium Chloride (0.9 % Sodium Chloride Flush 3 Ml Syringe) [facility] Last Admin: 04/17/24 08:21 Dose: 3 ml Documented By: JOAQUIM Labs 04/16/24 08:20 04/17/24 08:03 Labs: Laboratory Results - last 24 hr 04/16/24 04/16/24 04/17/24 11:05 11:50 08:03 Anion Gap 19 Estim Creat Clear Calc 31.6 Estimated GFR 36 Random Glucose 122 H Calcium 8.2 L Magnesium 2.6 Total Bilirubin 0.9 Direct Bilirubin 0.5 AST 30 ALT 16 Alkaline Phosphatase 134 H B-Natriuretic Peptide 1905 H Total Protein 6.0 L Albumin 3.8 Periton Neutrophils 31 Periton Lymphocytes 24 Peritoneal Monocytes 18 Peritoneal Other Cells 27 Respiratory Panel [place] See Note Adenovirus (Rapid PCR) Not Detected B.pert (TEM-PCR) Not Detected B.parapertussis DNA PCR Not Detected C. pneumoniae DNA (PCR) Not Detected Coronavirus OC43 (PCR) Not Detected Coronavirus HKU1 (PCR) Not Detected Coronavirus 229E (PCR) Not Detected Coronavirus NL63 (PCR) Not Detected Human Metapneumovir PCR Not Detected Influenza A (RT-PCR) Not Detected Influenza B (RT-PCR) Not Detected M. pneumoniae (PCR) Not Detected Parainfluenza 1 (PCR) Not Detected Parainfluenza 2 (PCR) Not Detected Parainfluenza 3 (PCR) Not Detected Parainfluenza 4 (PCR) Not Detected RSV (PCR) Not Detected Entero/Rhino (PCR) Not Detected SARS-CoV-2 RNA (RT-PCR) Not Detected Microbiology Microbiology Results: Microbiology 04/16/24 11:50 Gram Stain - Final Abdominal Fluid Routine Culture - Preliminary No growth to date. Anaerobic Culture - Preliminary No growth to date. Assessment and Plan (1) Acute on chronic combined systolic and diastolic CHF (congestive heart failure): Status: Resolved Plan 83-year-old male with a past medical history significant for cardiac arrest (03/2023) s/p biventricular ICD in place, HFrEF, CKD3, paroxysmal a fib on xarelto, CAD, PVD, HLD, BPH, unspecified asthma, GERD, gout and KEVIN on nasal CPAP presented to the ED today with worsening shortness of breath, dyspnea, weight gain and pedal edema for the past few weeks. He was discharged on 02/20 for a CHF exacerbation and new diuretics were added. He returns again today for CHF exacerbation. acute CHF exacerbation - chest x-ray repeated (04/16/24)-no penumonia - BNP elevated at [id number] - troponin chronically elevated but stable - EKG stable from previous monitor I's and O's neg 9 liters ,daily weights cardiology saw patient -hypotensive episode /hypokalemia - hold diuretics , bp improved with 250 ml ns bolus.. added loratidine ,robitussin ,ceftriaxone for bronchitis ( patient has productive cough). vomiting episode :? if related to po meds pills zofran prn no new episode lft's normal no adb pain passing gases ovidio vs CKD 3:Creatinine soemwhat improving 1.78 Follow kidney function closely while on diuretics. hypokalemia -iv and po replecemnets ordered will check bmp Anemia of chronic disease H&H 9.07/14.5-trending down 02/06.(seems similar) denies any ishmael bleeding or melena iron panel:low iron and sats but tibc and ferritin normal ,b12 and folate normal-?aocd fobt negative Continue iron supplementation, nephro need Follow CBC Elevated lft mild, Ascitis -? unclear etiology paracentesis -less likely sbp,cultures pending added ceftriaxone Gi- less likely sbp, prn tranfusions if needed,further workup outpatient. CAD Continue statin Paroxysmal AFib Continue metoprolol, amiodorone hold Xarelto due to anemia GERD PPI Full Code. DVT Prophylaxis: On Xarelto ongoing hospitalization for treatment of?acute HFrEF exacerbation nonresponsive to outpatient p.o. medications. He will need inpatient treatment with IV diuretics that require close monitoring of kidney function and electrolyte levels. d/w family overall prognosis guarded considering multiple medical medical issue mentioned above -family /patient decided for dnr/dni . if condition worsen will contact back family. Quality Stroke Does the patient have a stroke diagnosis?: No VTE Prior VTE?: No VTE Risk Level:: Medical - moderate - high VTE Device Contraindication: Treatment Not Indicated VTE Drug Contraindication: N/A - Med Ordered
[2024-04-17 15:05] LABS: Anion Gap 18 (12-20); Blood Urea Nitrogen 74 mg/dL (9-16); Calcium 8.3 mg/dL (8.4-10.2); Carbon Dioxide 27 mmol/L (22-29); Chloride 91 mmol/L (96-108); Estimated Glomerular Filt Rate 33; Glucose Random 162 mg/dL (60-115); Potassium 2.6 mmol/L (3.3-5.1); Sodium 133 mmol/L (135-145)
[2024-04-17] MEDS: Amiodarone HCL 200 MG TABLET PO (16:18)
[2024-04-17] MEDS: Rivaroxaban 15 MG TABLET PO (16:18)
[2024-04-17 20:09] LABS: Anion Gap 20 (12-20); Blood Urea Nitrogen 72 mg/dL (9-16); Calcium 8.7 mg/dL (8.4-10.2); Carbon Dioxide 27 mmol/L (22-29); Chloride 91 mmol/L (96-108); Creatinine Clr Calc Pharmacy 25.7; Estimated Glomerular Filt Rate 29; Glucose Random 135 mg/dL (60-115); Potassium 3.5 mmol/L (3.3-5.1); Sodium 134 mmol/L (135-145)
[2024-04-17] MEDS: Benzonatate 100 MG CAPSULE PO (20:19)
[2024-04-17] MEDS: Gabapentin 600 MG TABLET PO (20:19)
[2024-04-17] MEDS: Atorvastatin Calcium 40 MG TABLET PO (20:19)
[2024-04-18] VITALS (9 sets, daily range): BP systolic 96–120; BP diastolic 48–59; PULSE 60–95; RESP 18–22; TEMP 36.3–37.1; O2SAT 95–100
[2024-04-18] MEDS: Potassium Chloride/H20 10 MEQ/100 ML PIGGYBACK 100 MEQ IV (01:07)
[2024-04-18] MEDS: Albumin Human 25 % 100 ML IV ×4 (01:21→20:16)
[2024-04-18] MEDS: cefTRIAXone sodium 1 GM VIAL IVPUSH ×2 (03:04→12:47)
[2024-04-18] MEDS: Levothyroxine Sodium 88 MCG TABLET PO (06:05)
[2024-04-18] MEDS: Ferrous Sulfate 324 MG TABLET.DR PO (06:05)
[2024-04-18] MEDS: Pantoprazole Sodium 20 MG TABLET.DR 40 MG PO (06:05)
[2024-04-18 08:44] LABS: Anion Gap 21 (12-20); Bilirubin Direct 0.5 mg/dL (0.0-0.5); Bilirubin Total 0.8 mg/dL (0.0-1.0); Blood Urea Nitrogen 77 mg/dL (9-16); Carbon Dioxide 23 mmol/L (22-29); Chloride 93 mmol/L (96-108); Creatinine Clr Calc Pharmacy 22.6; Estimated Glomerular Filt Rate 25; Glucose Random 128 mg/dL (60-115); Magnesium 2.9 mg/dL (1.6-2.6); Potassium 3.8 mmol/L (3.3-5.1); Sodium 133 mmol/L (135-145)
[2024-04-18 08:46] LABS: Basophils Percent Auto 0.4 % (0-2); Eosinophils Absolute Auto 0.1 X10*3/uL (0.0-0.4); Eosinophils Percent Auto 0.7 % (0-4); Hematocrit 24.7 % (42.0-52.0); Imm Gran Abs Auto 0.09 X10*3/uL (0.00-0.03); Imm Gran Pct Auto 1.2 % (0.0-0.4); Lymphocytes Absolute Auto 0.9 X10*3/uL (1.2-4.9); Lymphocytes Percent Auto 12.5 % (20-40); Mean Corpuscular HGB Conc 32.4 g/dl (31.0-36.0); Mean Corpuscular Hemoglobin 28.9 pg (27.0-33.0); Mean Corpuscular Volume 89.2 fL (80.0-98.0); Monocytes Absolute Auto 0.6 X10*3/uL (0.1-1.2); Monocytes Percent Auto 8.7 % (2-11); Neutrophils Absolute Auto 5.6 x10*3/uL (2.0-8.3); Neutrophils Percent Auto 76.5 % (45-73); PLT CLUMP 1; Red Blood Count 2.77 X10*6/uL (4.60-5.80); Red Cell Distribution Width 24.6 % (11.0-16.0); SCAN SMEAR FLAG 1
[2024-04-18 08:47] LABS: MANUAL DIFF FLAG NO; White Blood Count 7.3 X10*3/uL (4.8-10.8)
[2024-04-18] MEDS: 0.9 % Sodium Chloride Flush 3 ML SYRINGE IVFLUSH ×3 (08:54→20:50)
[2024-04-18] MEDS: ondansetron HCL 4 MG/2 ML VIAL IVPUSH (08:54)
[2024-04-18] MEDS: Finasteride 5 MG TABLET PO (08:56)
[2024-04-18] MEDS: cilostazoL 50 MG TABLET PO (08:56)
[2024-04-18] MEDS: allopurinoL 100 MG TABLET PO (08:56)
[2024-04-18] MEDS: Loratadine 10 MG TABLET PO (08:56)
[2024-04-18] MEDS: Acetaminophen 325 MG TABLET 650 MG PO (08:56)
[2024-04-18] MEDS: guaiFENesin 200 MG/10 ML 10 ML LIQUID PO (08:58)
[2024-04-18] MEDS: Potassium Chloride ER 20 MEQ TAB.ER.PRT 40 MEQ PO ×2 (09:24→20:50)
[2024-04-18] MEDS: Magnesium Oxide 400 MG TABLET 800 MG PO ×2 (09:24→20:49)
[2024-04-18 10:33] LABS: Albumin Peritoneal Fluid 2.2
[2024-04-18 10:34] LABS: pH Peritoneal Fluid 7.55
--- NOTE | 2024-04-18 12:44 | P.PNCA_ITS ---
Subjective Subjective Date of Service: 04/18/24 Interval history: Seen in follow up. More or less the same. No new issues. Review of Systems Review of Systems Yes all other systems are reviewed and are negative Constitutional: Reports as per HPI and Reports no additional constitutional complaints Eyes: Reports as per HPI and Denies no additional eye complaints Denies system reviewed and no additional complaints, except as documented and Reports as per HPI Cardiovascular: Reports as per HPI, Reports no additional cardiovascular complaints, Denies acrocyanosis, Denies cool extremities, Denies chest pain, Reports leg edema, Denies lightheadedness, Denies palpitations and Reports dyspnea Respiratory: Reports as per HPI, Denies no additional respiratory complaints and Reports dyspnea Gastrointestinal: Reports as per HPI and Denies no additional gastrointestinal complaints Genitourinary: Reports no additional male genitourinary complaints and Reports as per HPI Musculoskeletal: Reports no additional musculoskeletal complaints and Reports as per HPI Skin/Breast: Reports system reviewed and no additional complaints, except as docu Reports system reviewed and no additional complaints, except as documented and Reports as per HPI Psychiatric: Reports no additional psychiatric complaints and Reports as per HPI Endocrine: Reports no additional endocrine complaints, Reports as per HPI and Denies palpitations Hematologic/Lymphatic: Reports no additional hematologic/lymphatic complaints and Reports as per HPI Allergic/Immunologic: Reports no additional allergic/immunologic complaints and Reports as per HPI Physical Exam Vital Signs: Last Vital Signs Temp 97.7 F 04/18/24 11:45 Pulse 60 04/18/24 11:45 Resp 20 04/18/24 11:45 BP 101/54 L 04/18/24 11:45 Pulse Ox 100 04/18/24 11:45 O2 Del Method Room Air 04/18/24 11:45 O2 Flow Rate 3 04/17/24 19:57 BMI result Body Mass Index 32.1 Const General: comfortable and no acute distress Orientation/consciousness: patient oriented x3 HEENT Other: Unremarkable Head: Yes normal to inspection Neck Neck: Yes normal visual inspection Chest Chest palpation & inspection: normal inspection of the chest Resp Other: Bilateral rhonchi Auscultation: rhonchi and diminished lung sounds Cardio Palpation: normal PMI Heart sounds: S1 normal heart sound present, S2 normal heart sound present, no gallops, no murmurs and no rubs GI Other: Distended Palpation (GI): Soft to palpation Back/Spine/Pelvis Other: unremarkable Skin General skin exam: no rashes or lesions noted Neuro General: patient oriented x3 Extrem Other: 1+ edema General: Yes normal to inspection Psych Mental Status: mental status grossly normal Objective Labs and Meds 04/18/24 07:34 04/18/24 07:34 Lab results: Laboratory Results - last 24 hr 04/16/24 04/17/24 04/17/24 11:50 14:31 19:30 WBC RBC Hgb Hct MCV MCH MCHC RDW Plt Count MPV Immature Gran % (Auto) Neut % (Auto) Lymph % (Auto) [place] % (Auto) Eos % (Auto) Baso % (Auto) Lymph # (Auto) [place] # (Auto) Eos # (Auto) Baso # (Auto) Abs Immat Gran (auto) Absolute Neuts (auto) Absolute Nucleated RBC Nucleated RBC % (auto) Sodium 133 L 134 L Potassium 2.6 L* D 3.5 D Chloride 91 L 91 L Carbon Dioxide 27 27 Anion Gap 18 20 BUN 74 H 72 H Creatinine 1.96 H 2.21 H Estim Creat Clear Calc 29.0 25.7 Estimated GFR 33 29 Random Glucose 162 H 135 H Calcium 8.3 L 8.7 Magnesium Total Bilirubin Direct Bilirubin Peritoneal pH 7.55 Peritoneal Albumin 2.2 04/18/24 04/18/24 07:34 08:03 WBC 7.3 RBC 2.77 L Hgb 8.0 L Hct 24.7 L MCV 89.2 MCH 28.9 MCHC 32.4 RDW 24.6 H Plt Count TNP MPV Not Reportable Immature Gran % (Auto) 1.2 H Neut % (Auto) 76.5 H Lymph % (Auto) 12.5 L [place] % (Auto) 8.7 Eos % (Auto) 0.7 Baso % (Auto) 0.4 Lymph # (Auto) 0.9 L [place] # (Auto) 0.6 Eos # (Auto) 0.1 Baso # (Auto) 0.0 Abs Immat Gran (auto) 0.09 H Absolute Neuts (auto) 5.6 Absolute Nucleated RBC 0.000 Nucleated RBC % (auto) 0.0 Sodium 133 L Cancelled Potassium 3.8 Cancelled Chloride 93 L Cancelled Carbon Dioxide 23 Cancelled Anion Gap 21 H Cancelled BUN 77 H Cancelled Creatinine 2.51 H Cancelled Estim Creat Clear Calc 22.6 Cancelled Estimated GFR 25 Cancelled Random Glucose 128 H Cancelled Calcium 9.0 Cancelled Magnesium 2.9 H Total Bilirubin 0.8 Direct Bilirubin 0.5 Peritoneal pH Peritoneal Albumin Progress Note: A&P Assessment and plan (1) Acute on chronic diastolic (congestive) heart failure: Status: Acute (2) Hypokalemia: Status: Acute Plan In the most recent echocardiogram, LVEF is 46%. Basal inferior akinesis. Mild aortic regurgitation; [id number] mitral regurgitation; mild tricuspid regurgitation with mild pulmonary hypertension. He has been somewhat diuresing with IV Bumex/metolazone/acetazolamide but was very resistant and still volume overloaded. Additionally, his potassium went down to 2 and hence diuretics were stopped for a day. He is currently not getting any diuretics. Potassium has been aggressively repleted and we can resume possibly Lasix drip and use additional acetazolamide. May hold metolazone for now. Aggressively correct potassium. He has already had some ascitic tap but abdomen still feels tense and may have to be repeated. Overall, very diuretic resistant and running out of options. Has renal insufficiency as well. Guarded prognosis. I discussed this with daughter today with the bedside. They understand the seriousness. Time Spent With Patient Time: Total time managing care of this patient today ____ minutes. Progress Note: Quality Stroke Does the patient have a stroke diagnosis?: No Procedures Date of Service Date of Service: 04/18/24
--- NOTE | 2024-04-18 13:15 | P.PNIM_ITS ---
Subjective Subjective Date of Service: 04/18/24 Interval History: chf , boderline bp Review of Systems no sob , but has leg edema similar also has ascitis Physical Exam 2 Vital Signs: Vital Signs: Last Vital Signs Temp 97.7 F 04/18/24 11:45 Pulse 60 04/18/24 11:45 Resp 20 04/18/24 11:45 BP 101/54 L 04/18/24 11:45 Pulse Ox 100 04/18/24 11:45 O2 Del Method Room Air 04/18/24 11:45 O2 Flow Rate 3 04/17/24 19:57 BMI result Body Mass Index 32.1 General: AOx3, no acute distress Resp: air entry fair dimished at bases. CVS: S1, S2, RRR GI: +BS, NT,nd ,bs present Skin: Warm, dry Extremities: 2+ pitting edema bilateral lower extremities Psych: Appropriate affect Objective Data Active Medications Acetaminophen (Acetaminophen 325 Mg Tablet) 650 mg PO Q6H PRN PRN Reason: Pain, Mild (Pain Scale 1-3), fever or headache Last Admin: 04/18/24 08:56 Dose: 650 mg Documented By: JOAQUIM Albuterol/Ipratropium (Albuterol/Iprat 2.5/0.5mg 3 Ml Ampul.Neb) 3 ml INHALE Q4H PRN PRN Reason: Wheezing Last Admin: 04/14/24 08:24 Dose: 3 ml Documented By: TATI Allopurinol (Allopurinol 100 Mg Tablet) 100 mg PO DAILY@0900 [facility], [facility] Last Admin: 04/18/24 08:56 Dose: 100 mg Documented By: JOAQUIM Amiodarone HCl (Amiodarone Hcl 200 Mg Tablet) 200 mg PO DAILY@1700 [facility], [facility] Last Admin: 04/17/24 16:18 Dose: 200 mg Documented By: JOAQUIM Atorvastatin Calcium (Atorvastatin Calcium 40 Mg Tablet) 40 mg PO BEDTIME [facility], [facility] Last Admin: 04/17/24 20:19 Dose: 40 mg Documented By: KELSEY Benzonatate (Benzonatate 100 Mg Capsule) 100 mg PO TID PRN PRN Reason: Cough Last Admin: 04/17/24 20:19 Dose: 100 mg Documented By: KELSEY Calcium Carbonate (Calcium Carbonate 750 Mg Tab.Chew) 750 mg PO Q4H PRN PRN Reason: Heartburn Ceftriaxone Sodium (Ceftriaxone Sodium 1 Gm Vial) 1 gm IVPUSH Q12H [facility], [facility] Last Admin: 04/18/24 12:47 Dose: 1 gm Documented By: JOAQUIM Cilostazol (Cilostazol 50 Mg Tablet) 50 mg PO BID [facility], [facility] Last Admin: 04/18/24 08:56 Dose: 50 mg Documented By: JOAQUIM Ferrous Sulfate (Ferrous Sulfate 324 Mg Tablet.) 324 mg PO DAILY@0600 [facility] Last Admin: 04/18/24 06:05 Dose: 324 mg Documented By: KELSEY Finasteride (Finasteride 5 Mg Tablet) 5 mg PO DAILY@0900 [facility] Last Admin: 04/18/24 08:56 Dose: 5 mg Documented By: JOAQUIM Gabapentin (Gabapentin 600 Mg Tablet) 600 mg PO BEDTIME [facility] Last Admin: 04/17/24 20:19 Dose: 600 mg Documented By: KELSEY Guaifenesin (Guaifenesin 200 Mg/10 Ml 10 Ml Liquid) 10 ml PO Q4H PRN PRN Reason: Cough Last Admin: 04/18/24 08:58 Dose: 10 ml Documented By: JOAQUIM Albumin Human (Kedbumin 25 %) 100 mls @ 100 mls/hr IV Q6H [facility] Stop: 04/19/24 02:44 Last Admin: 04/18/24 12:47 Dose: 100 mls/hr Documented By: JOAQUIM Furosemide 200 mg/ Sodium (Chloride) 100 mls @ 5 mls/hr IVCONT .Q20H [facility] Levothyroxine Sodium (Levothyroxine Sodium 88 Mcg Tablet) 88 mcg PO DAILY@0600 [facility] Last Admin: 04/18/24 06:05 Dose: 88 mcg Documented By: KELSEY Loratadine (Loratadine 10 Mg Tablet) 10 mg PO DAILY [facility] Last Admin: 04/18/24 08:56 Dose: 10 mg Documented By: JOAQUIM Lorazepam (Lorazepam 0.5 Mg Tablet) 0.5 mg PO DAILY PRN PRN Reason: Anxiety Last Admin: 04/16/24 20:43 Dose: 0.5 mg Documented By: KELSEY Magnesium Hydroxide (Milk Of Magnesia 30 Ml Oral.Susp) 30 ml PO DAILY PRN PRN Reason: Constipation Magnesium Oxide (Magnesium Oxide 400 Mg Tablet) 800 mg PO BID [facility] Last Admin: 04/18/24 09:24 Dose: 800 mg Documented By: JOAQUIM Melatonin (Melatonin 3 Mg Tablet) 6 mg PO BEDTIME PRN PRN Reason: Insomnia Ondansetron HCl (Ondansetron Hcl 4 Mg/2 Ml Vial) 4 mg IVPUSH Q6H PRN PRN Reason: Nausea and Vomiting Last Admin: 04/18/24 08:54 Dose: 4 mg Documented By: JOAQUIM Pantoprazole Sodium (Pantoprazole Sodium 20 Mg Tablet.Dr) 40 mg PO DAILY@0630 [facility] Last Admin: 04/18/24 06:05 Dose: 40 mg Documented By: KELSEY Potassium Chloride (Potassium Chloride Er 20 Meq Tab.Er.Prt) 40 meq PO BID [facility] Rivaroxaban (Rivaroxaban 15 Mg Tablet) 15 mg PO DAILY@1700 [facility] Last Admin: 04/17/24 16:18 Dose: 15 mg Documented By: JOAQUIM Sodium Chloride (0.9 % Sodium Chloride Flush 3 Ml Syringe) 3 ml IVFLUSH QSHIFT [facility] Last Admin: 04/18/24 12:47 Dose: 3 ml Documented By: JOAQUIM Labs 04/18/24 07:34 04/18/24 07:34 Labs: Laboratory Results - last 24 hr 04/16/24 04/17/24 04/17/24 11:50 14:31 19:30 MCV MCH MCHC RDW Plt Count MPV Immature Gran % (Auto) Neut % (Auto) Lymph % (Auto) [place] % (Auto) Eos % (Auto) Baso % (Auto) Lymph # (Auto) [place] # (Auto) Eos # (Auto) Baso # (Auto) Abs Immat Gran (auto) Absolute Neuts (auto) Absolute Nucleated RBC Nucleated RBC % (auto) Anion Gap 18 20 Estim Creat Clear Calc 29.0 25.7 Estimated GFR 33 29 Random Glucose 162 H 135 H Calcium 8.3 L 8.7 Magnesium Total Bilirubin Direct Bilirubin Peritoneal pH 7.55 Peritoneal Albumin 2.2 04/18/24 04/18/24 07:34 08:03 MCV 89.2 MCH 28.9 MCHC 32.4 RDW 24.6 H Plt Count TNP MPV Not Reportable Immature Gran % (Auto) 1.2 H Neut % (Auto) 76.5 H Lymph % (Auto) 12.5 L [place] % (Auto) 8.7 Eos % (Auto) 0.7 Baso % (Auto) 0.4 Lymph # (Auto) 0.9 L [place] # (Auto) 0.6 Eos # (Auto) 0.1 Baso # (Auto) 0.0 Abs Immat Gran (auto) 0.09 H Absolute Neuts (auto) 5.6 Absolute Nucleated RBC 0.000 Nucleated RBC % (auto) 0.0 Anion Gap 21 H Cancelled Estim Creat Clear Calc 22.6 Cancelled Estimated GFR 25 Cancelled Random Glucose 128 H Cancelled Calcium 9.0 Cancelled Magnesium 2.9 H Total Bilirubin 0.8 Direct Bilirubin 0.5 Peritoneal pH Peritoneal Albumin Microbiology Microbiology Results: Microbiology 04/17/24 08:58 Gram Stain - Final Sputum - Expectorated Sputum Culture - Preliminary Culture in progress. 04/16/24 11:50 Gram Stain - Final Abdominal Fluid Routine Culture - Final No growth after 2 days Anaerobic Culture - Preliminary No growth to date. Assessment and Plan (1) Acute on chronic combined systolic and diastolic CHF (congestive heart failure): Status: Resolved Plan 83-year-old male with a past medical history significant for cardiac arrest (03/2023) s/p biventricular ICD in place, HFrEF, CKD3, paroxysmal a fib on xarelto, CAD, PVD, HLD, BPH, unspecified asthma, GERD, gout and KEVIN on nasal CPAP presented to the ED today with worsening shortness of breath, dyspnea, weight gain and pedal edema for the past few weeks. He was discharged on 02/20 for a CHF exacerbation and new diuretics were added. He returns again today for CHF exacerbation. acute CHF exacerbation - chest x-ray repeated (04/16/24)-no penumonia - BNP elevated at [id number] - troponin chronically elevated but stable - EKG stable from previous monitor I's and O's neg 9 liters ,daily weights cardiology saw patient -hypotension seems to be improving -d/w cardio -switched to lasix drip. continue loratidine ,robitussin ,ceftriaxone for bronchitis ( patient has productive cough). vomiting episode :? if related to po meds pills zofran prn no new episode lft's normal no adb pain passing gases ovidio vs CKD 3:Creatinine somewhat worseing 2.5 (? related to hypotension episode yesterday) Follow kidney function closely while on diuretics. hypokalemia -iv and po repleted and resolved adjust po potassium 40 meq po bid moniter bmp closely nephrology following Anemia of chronic disease H&H 9.07/14.-trending down 02/06.(seems similar) denies any ishmael bleeding or melena iron panel:low iron and sats but tibc and ferritin normal ,b12 and folate normal-?aocd fobt negative Continue iron supplementation, nephro need Follow CBC Elevated lft mild, Ascitis -? unclear etiology paracentesis -less likely sbp,cultures negative Gi- less likely sbp, prn tranfusions if needed,further workup outpatient. paracentesis 2 days back removed 2 liter fluids , repeat ascitis tap ordered for morning CAD Continue statin Paroxysmal AFib Continue metoprolol, amiodorone hold Xarelto due to anemia GERD PPI Full Code. DVT Prophylaxis: On Xarelto ongoing hospitalization for treatment of?acute HFrEF exacerbation nonresponsive to outpatient p.o. medications. He will need inpatient treatment with IV diuretics that require close monitoring of kidney function and electrolyte levels. d/w family overall prognosis guarded considering multiple medical medical issue mentioned above -family /patient decided for dnr/dni . if condition worsen will contact back family. Quality Stroke Does the patient have a stroke diagnosis?: No VTE Prior VTE?: No VTE Risk Level:: Medical - moderate - high VTE Device Contraindication: Treatment Not Indicated VTE Drug Contraindication: N/A - Med Ordered
[2024-04-18] MEDS: Furosemide 200 MG in 0.9 % Sodium Chloride 80 ML IVCONT (13:44)
[2024-04-18] MEDS: Rivaroxaban 15 MG TABLET PO (16:24)
[2024-04-18] MEDS: Amiodarone HCL 200 MG TABLET PO (16:24)
[2024-04-18] MEDS: Benzonatate 100 MG CAPSULE PO (20:48)
[2024-04-18] MEDS: Atorvastatin Calcium 40 MG TABLET PO (20:49)
[2024-04-18] MEDS: Gabapentin 600 MG TABLET PO (20:50)
[2024-04-19] VITALS (10 sets, daily range): BP systolic 95–113; BP diastolic 45–68; PULSE 24–67; RESP 16–20; TEMP 35.6–37.3; O2SAT 95–100; BMI 33.4
[2024-04-19] MEDS: Albumin Human 25 % 100 ML IV ×3 (02:33→20:08)
[2024-04-19] MEDS: cefTRIAXone sodium 1 GM VIAL IVPUSH ×2 (02:33→15:10)
[2024-04-19 04:02] LABS: HBS Num1 1.04 mIU/mL (0-7.99); Hepatitis B Core Antibody Nonreactive (Nonreactive); Hepatitis B Surface Antigen Negative (Negative); ~HepC Num1 0.05 S/CO (0.00-0.79); ~Hepatitis B Surface Antibody NONREACTIVE (Nonreactive); ~Hepatitis C Antibody Nonreactive (Nonreactive)
[2024-04-19] MEDS: Ferrous Sulfate 324 MG TABLET.DR PO (05:58)
[2024-04-19] MEDS: Pantoprazole Sodium 20 MG TABLET.DR 40 MG PO (05:58)
[2024-04-19] MEDS: Levothyroxine Sodium 88 MCG TABLET PO (05:58)
[2024-04-19 06:46] LABS: Anion Gap 17 (12-20); Blood Urea Nitrogen 78 mg/dL (9-16); Carbon Dioxide 25 mmol/L (22-29); Chloride 93 mmol/L (96-108); Creatinine Clr Calc Pharmacy 19.4; Estimated Glomerular Filt Rate 21; Glucose Random 138 mg/dL (60-115); Potassium 4.3 mmol/L (3.3-5.1); Sodium 131 mmol/L (135-145)
[2024-04-19] MEDS: Magnesium Oxide 400 MG TABLET 800 MG PO ×2 (08:53→20:09)
[2024-04-19] MEDS: Potassium Chloride ER 20 MEQ TAB.ER.PRT 40 MEQ PO ×2 (08:57→20:08)
[2024-04-19] MEDS: Loratadine 10 MG TABLET PO (08:57)
[2024-04-19] MEDS: allopurinoL 100 MG TABLET PO (08:57)
[2024-04-19] MEDS: Finasteride 5 MG TABLET PO (08:58)
[2024-04-19] MEDS: 0.9 % Sodium Chloride Flush 3 ML SYRINGE IVFLUSH ×3 (08:58→23:41)
--- NOTE | 2024-04-19 10:09 | P.PNNP_ITS ---
Subjective Subjective Date of Service: 04/19/24 Interval history: 83 y/o male with medical history of cardiac arrest (03/2023), biventricular ICD in place, HFrEF, CKD3, paroxysmal afib on xarelto, CAD, PVD, asthma, GERD, gout, KEVIN on CPAP. ED on 04/12 with dyspnea, weight gain, pedal edema for past few weeks. Referred to nephrology for LIBRA on CKD3 in setting of CHF exacerbation. GFR in 20s Creatinine trend: 01/12/24 2.20 01/19/24 1.83 02/05/24 1.82 02/09/24 2.21 02/18/24 2.02 02/19/24 1.90 02/20/24 1.65 02/21/24 1.75 02/24/24 2.61 02/26/24 2.64 03/03/24 2.31 03/22/24 2.94 04/01/24 2.24 04/12/24 2.93 04/13/24 2.48 04/14/24 2.32 04/15/24 2.06 04/16/24 2.00 Urine bland 03/03/24 Renal US 02/11/[address] abd/pelvis kidneys and ureters unremarkable. patient has had mild hyponatremia since 02/24/24 has worsening chronic normocytic anemia ( since at least September 2023, he is on iron supplementation) Patient states his breathing is comfortable but he has a wet cough/upper airway phlegm states his legs still feel swollen states he is urinating regularly/comfortably, but not as much as he would expect for all of the diuretics he is receiving (UOP 2800mL last 24hr) denies abdominal pain but states he feels bloated and passes a lot of gas, he is passing stool. he denies other concerns/symptoms Physical Exam 2 Vital Signs: Vital Signs: Last Vital Signs Temp 98.3 F 04/19/24 07:42 Pulse 67 04/19/24 07:42 Resp 20 04/19/24 07:42 BP 106/55 L 04/19/24 07:42 Pulse Ox 100 04/19/24 07:42 O2 Del Method Nasal Cannula 04/19/24 07:42 O2 Flow Rate 2 04/19/24 07:42 BMI result Body Mass Index 33.4 Const: General: comfortable, alert and awake Resp: Effort & Inspection: normal respiratory effort and able to speak in complete sentences Auscultation: rhonchi Cardio: Rate: regular rate Rhythm: regular rhythm Heart sounds: S1 normal heart sound present and S2 normal heart sound present GI: Palpation (GI): Soft to palpation and nontender : General: Yes no CVA tenderness Back/Spine/Pelvis: Back: no CVA tenderness Skin: Rashes: no rashes Extrem: General: Yes edema (BLE pitting +1) Objective Data Labs 04/18/24 07:34 04/19/24 06:16 Labs: Laboratory Results - last 24 hr 04/16/24 04/18/24 04/19/24 11:50 07:34 06:16 Hold Purple Top SEE NOTE Sodium 131 L Potassium 4.3 Chloride 93 L Carbon Dioxide 25 Anion Gap 17 BUN 78 H Creatinine 2.92 H Estim Creat Clear Calc 19.4 Estimated GFR 21 Random Glucose 138 H Calcium 9.0 Peritoneal pH 7.55 Peritoneal Albumin 2.2 Hep Bs Antigen Negative Hep Bs Antibody NONREACTIVE Hep B Core Total Ab Nonreactive Hepatitis C Ab (EIA) Nonreactive Microbiology Microbiology Results: Microbiology 04/16/24 11:50 Abdominal Fluid Gram Stain - Final 04/16/24 11:50 Abdominal Fluid Routine Culture - Final No growth after 2 days 04/16/24 11:50 Abdominal Fluid Anaerobic Culture - Preliminary No growth to date. 04/17/24 08:58 Sputum - Expectorated Gram Stain - Final 04/17/24 08:58 Sputum - Expectorated Sputum Culture - Preliminary Culture in progress. Procedures Date of Service Date of Service: 04/19/24 Assessment & Plan Assessment and plan (1) LIBRA (acute kidney injury): Status: Acute (2) CKD (chronic kidney disease): Status: Acute (3) Acute on chronic diastolic (congestive) heart failure: Status: Acute (4) Hyponatremia: Status: Acute Plan LIBRA on CKD likely hypoperfusion in setting of heart failure exacerbation creatinine has improved wtih diuresis, though slight uptrend over last few days, likely related to hypotension Will check urine sodium, if above 80 will continue current diuretic plan (if below will consider increasing diuretic dosing) recommend monitoring electrolytes daily and replacing potassium as needed chronic anemia- does have iron deficiency, taking oral iron, he is absorbing as iron stores have increased over time with oral iron supplementation. recommend continuing iron supplementation and will follow up outpatient for continued management recommend daily electrolyte and renal function studies Will continue to follow Discussed with Dr Wren Time Spent With Patient Time: Total time managing care of this patient today ____ minutes. Progress Note: Quality Stroke Does the patient have a stroke diagnosis?: No
--- NOTE | 2024-04-19 10:33 | PM.PNCARD ---
Subjective Subjective Date of Service: 04/19/24 Principal diagnosis: Decompensated congestive heart failure Interval history: Patient's renal function, creatinine has increased. Patient continues to diurese the rapidly with IV Lasix. Overall still remains fluid overloaded with significant ascites. Patient feels weak. Denies any shortness of breath or orthopnea. Review of Systems Constitutional: Reports weakness Eyes: Reports no additional eye complaints Cardiovascular: Reports Abdominal Distension, Denies chest pain, Denies rapid heart rate, Reports leg edema and Denies orthopnea Respiratory: Denies cough Genitourinary: Reports no additional male genitourinary complaints Reports weakness Physical Exam Vital Signs: Last Vital Signs Temp 98.3 F 04/19/24 07:42 Pulse 67 04/19/24 07:42 Resp 20 04/19/24 07:42 BP 106/55 L 04/19/24 07:42 Pulse Ox 100 04/19/24 07:42 O2 Del Method Nasal Cannula 04/19/24 07:42 O2 Flow Rate 2 04/19/24 07:42 BMI result Body Mass Index 33.4 Const General: cooperative, comfortable, alert, awake and tired appearing Nutritional Appearance: obese Orientation/consciousness: patient oriented x3 Neck Neck: Yes trachea midline, Yes supple and Yes JVD Resp Effort & Inspection: decreased respiratory effort Auscultation: no rales, no wheezes and diminished lung sounds Cardio Jugular venous distension: JVD Rate: regular rate Rhythm: regular rhythm Heart sounds: S1 normal heart sound present, S2 normal heart sound present, no click, no gallops and Murmur heart sound present GI Inspection: Yes distended Auscultation: normal bowel sounds Skin General skin exam: no rashes or lesions noted Neuro General: patient oriented x3 and no focal motor deficits Extrem General: No clubbing, No cyanosis and Yes edema Objective Labs and Meds 04/18/24 07:34 04/19/24 06:16 Lab results: Laboratory Results - last 24 hr 04/16/24 04/18/24 04/19/24 11:50 07:34 06:16 Hold Purple Top SEE NOTE Sodium 131 L Potassium 4.3 Chloride 93 L Carbon Dioxide 25 Anion Gap 17 BUN 78 H Creatinine 2.92 H Estim Creat Clear Calc 19.4 Estimated GFR 21 Random Glucose 138 H Calcium 9.0 Peritoneal pH 7.55 Peritoneal Albumin 2.2 Hep Bs Antigen Negative Hep Bs Antibody NONREACTIVE Hep B Core Total Ab Nonreactive Hepatitis C Ab (EIA) Nonreactive Progress Note: A&P Assessment and plan (1) Acute on chronic diastolic (congestive) heart failure: Status: Acute Assessment and Plan: Decompensated resistant heart failure with worsening creatinine despite diuresis. Said difficult clinical scenario at this point in time. Discussed with the family. Continue adjunctive therapy and I would consider giving him 1 unit of packed RBC transfusion. Continue Lasix IV diuresis drip. Strict intake and output chart needs to be pursued. Agree with paracentesis but being careful of removing too much extravascular fluid can worsening in his renal insufficiency. Question consider albumin therapy. Will discuss with hospitalist team about the same. Has not been a good candidate for guideline based medical therapy otherwise due to his low blood pressure. Continue current therapy. Overall prognosis is guarded. Will review his echocardiogram to see if he has significant tricuspid regurgitation that good impact his overall treatment response. Will follow with you Time Spent With Patient Time: Total time managing care of this patient today ____ minutes. Progress Note: Quality Stroke Does the patient have a stroke diagnosis?: No Procedures Date of Service Date of Service: 04/19/24
[2024-04-19] MEDS: Furosemide 200 MG in 0.9 % Sodium Chloride 80 ML IVCONT (11:06)
--- NOTE | 2024-04-19 14:02 | P.PNIM_ITS ---
Subjective Subjective Date of Service: 04/19/24 Interval History: chf ,ski, anemia Review of Systems has epistaxcis episode still seems has legs edema also has ascitis Physical Exam 2 Vital Signs: Vital Signs: Last Vital Signs Temp 98.0 F 04/19/24 11:33 Pulse 60 04/19/24 11:33 Resp 20 04/19/24 11:33 BP 101/56 L 04/19/24 11:33 Pulse Ox 100 04/19/24 11:33 O2 Del Method Room Air 04/19/24 11:33 O2 Flow Rate 2 04/19/24 07:42 BMI result Body Mass Index 33.4 General: AOx3, no acute distress Resp: air entry fair dimished at bases. CVS: S1, S2, RRR GI: +BS, NT,nd ,bs present Skin: Warm, dry Extremities: 2+ pitting edema bilateral lower extremities Psych: Appropriate affect Objective Data Active Medications Acetaminophen (Acetaminophen 325 Mg Tablet) 650 mg PO Q6H PRN PRN Reason: Pain, Mild (Pain Scale 1-3), fever or headache Last Admin: 04/18/24 08:56 Dose: 650 mg Documented By: JOAQUIM Albuterol/Ipratropium (Albuterol/Iprat 2.5/0.5mg 3 Ml Ampul.Neb) 3 ml INHALE Q4H PRN PRN Reason: Wheezing Last Admin: 04/14/24 08:24 Dose: 3 ml Documented By: TATI Allopurinol (Allopurinol 100 Mg Tablet) 100 mg PO DAILY@0900 [facility] Last Admin: 04/19/24 08:57 Dose: 100 mg Documented By: PHOENIX Amiodarone HCl (Amiodarone Hcl 200 Mg Tablet) 200 mg PO DAILY@1700 [facility] Last Admin: 04/18/24 16:24 Dose: 200 mg Documented By: JOAQUIM Atorvastatin Calcium (Atorvastatin Calcium 40 Mg Tablet) 40 mg PO BEDTIME [facility] Last Admin: 04/18/24 20:49 Dose: 40 mg Documented By: DIANA Benzonatate (Benzonatate 100 Mg Capsule) 100 mg PO TID PRN PRN Reason: Cough Last Admin: 04/18/24 20:48 Dose: 100 mg Documented By: DIANA Calcium Carbonate (Calcium Carbonate 750 Mg Tab.Chew) 750 mg PO Q4H PRN PRN Reason: Heartburn Ceftriaxone Sodium (Ceftriaxone Sodium 1 Gm Vial) 1 gm IVPUSH Q12H [facility] Last Admin: 04/19/24 02:33 Dose: 1 gm Documented By: DIANA Cilostazol (Cilostazol 50 Mg Tablet) 50 mg PO BID [facility] Last Admin: 04/18/24 08:56 Dose: 50 mg Documented By: JOAQUIM Ferrous Sulfate (Ferrous Sulfate 324 Mg Tablet.) 324 mg PO DAILY@0600 [facility] Last Admin: 04/19/24 05:58 Dose: 324 mg Documented By: FLAVIO Finasteride (Finasteride 5 Mg Tablet) 5 mg PO DAILY@0900 [facility] Last Admin: 04/19/24 08:58 Dose: 5 mg Documented By: PHOENIX Gabapentin (Gabapentin 600 Mg Tablet) 600 mg PO BEDTIME [facility] Last Admin: 04/18/24 20:50 Dose: 600 mg Documented By: DIANA Guaifenesin (Guaifenesin 200 Mg/10 Ml 10 Ml Liquid) 10 ml PO Q4H PRN PRN Reason: Cough Last Admin: 04/18/24 08:58 Dose: 10 ml Documented By: JOAQUIM Furosemide 200 mg/ Sodium (Chloride) 100 mls @ 5 mls/hr IVCONT .Q20H [facility] Last Admin: 04/19/24 11:06 Dose: 10 mg/hr, 5 mls/hr Documented By: PHOENIX Albumin Human (Kedbumin 25 %) 100 mls @ 100 mls/hr IV Q6H [facility] Stop: 04/20/24 05:59 Last Admin: 04/19/24 11:59 Dose: 100 mls/hr Documented By: PHOENIX Levothyroxine Sodium (Levothyroxine Sodium 88 Mcg Tablet) 88 mcg PO DAILY@0600 [facility] Last Admin: 04/19/24 05:58 Dose: 88 mcg Documented By: FLAVIO Loratadine (Loratadine 10 Mg Tablet) 10 mg PO DAILY [facility] Last Admin: 04/19/24 08:57 Dose: 10 mg Documented By: PHOENIX Lorazepam (Lorazepam 0.5 Mg Tablet) 0.5 mg PO DAILY PRN PRN Reason: Anxiety Last Admin: 04/16/24 20:43 Dose: 0.5 mg Documented By: KELSEY Magnesium Hydroxide (Milk Of Magnesia 30 Ml Oral.Susp) 30 ml PO DAILY PRN PRN Reason: Constipation Magnesium Oxide (Magnesium Oxide 400 Mg Tablet) 800 mg PO BID [facility] Last Admin: 04/19/24 08:53 Dose: 800 mg Documented By: PHOENIX Melatonin (Melatonin 3 Mg Tablet) 6 mg PO BEDTIME PRN PRN Reason: Insomnia Ondansetron HCl (Ondansetron Hcl 4 Mg/2 Ml Vial) 4 mg IVPUSH Q6H PRN PRN Reason: Nausea and Vomiting Last Admin: 04/18/24 08:54 Dose: 4 mg Documented By: JOAQUIM Pantoprazole Sodium (Pantoprazole Sodium 20 Mg Tablet.) 40 mg PO DAILY@0630 [facility] Last Admin: 04/19/24 05:58 Dose: 40 mg Documented By: FLAVIO Potassium Chloride (Potassium Chloride Er 20 Meq Tab.Er.Prt) 40 meq PO BID [facility] Last Admin: 04/19/24 08:57 Dose: 40 meq Documented By: PHOENIX Rivaroxaban (Rivaroxaban 15 Mg Tablet) 15 mg PO DAILY@1700 [facility] Last Admin: 04/18/24 16:24 Dose: 15 mg Documented By: JOAQUIM Sodium Chloride (0.9 % Sodium Chloride Flush 3 Ml Syringe) 3 ml IVFLUSH QSHIFT [facility] Last Admin: 04/19/24 08:58 Dose: 3 ml Documented By: PHOENIX Labs 04/18/24 07:34 04/19/24 06:16 Labs: Laboratory Results - last 24 hr 04/18/24 04/19/24 04/19/24 07:34 06:16 11:53 Hold Purple Top SEE NOTE Anion Gap 17 Estim Creat Clear Calc 19.4 Estimated GFR 21 Random Glucose 138 H Calcium 9.0 Hep Bs Antigen Negative Hep Bs Antibody NONREACTIVE Hep B Core Total Ab Nonreactive Hepatitis C Ab (EIA) Nonreactive Blood Type A Positive Antibody Screen NEGATIVE Crossmatch See Detail Microbiology Microbiology Results: Microbiology 04/17/24 08:58 Gram Stain - Final Sputum - Expectorated Sputum Culture - Preliminary Culture in progress. 04/16/24 11:50 Gram Stain - Final Abdominal Fluid Routine Culture - Final No growth after 2 days Anaerobic Culture - Preliminary No growth to date. Assessment and Plan (1) Acute on chronic combined systolic and diastolic CHF (congestive heart failure): Status: Resolved Plan 83-year-old male with a past medical history significant for cardiac arrest (03/2023) s/p biventricular ICD in place, HFrEF, CKD3, paroxysmal a fib on xarelto, CAD, PVD, HLD, BPH, unspecified asthma, GERD, gout and KEVIN on nasal CPAP presented to the ED today with worsening shortness of breath, dyspnea, weight gain and pedal edema for the past few weeks. He was discharged on 02/20 for a CHF exacerbation and new diuretics were added. He returns again today for CHF exacerbation. acute CHF exacerbation - chest x-ray repeated (04/16/24)-no penumonia - BNP elevated at [id number] - troponin chronically elevated but stable - EKG stable from previous monitor I's and O's neg 9.6 liters ,daily weights cardiology saw patient -hypotension seems to be improving -d/w cardio -switched to lasix drip. continue loratidine ,robitussin ,ceftriaxone for bronchitis ( patient has productive cough). vomiting(04/17/24) : no abd pain or nausea today zofran prn no new episode lft's normal no adb pain passing gases and bm's ( last on 04/18/24) ovidio vs CKD 3:in setting of chf Creatinine somewhat worseing 2.9 Follow kidney function closely while on diuretics. hypokalemia -iv and po repleted and resolved adjust po potassium 40 meq po bid moniter bmp closely nephrology following Anemia of chronic disease H&H 9.07/14.5-trending down 02/06.(seems similar) denies any ishmael bleeding or melena iron panel:low iron and sats but tibc and ferritin normal ,b12 and folate normal-?aocd fobt negative Continue iron supplementation 1 prbc added Follow CBC Elevated lft mild, Ascitis -? unclear etiology paracentesis -less likely sbp,cultures negative Gi- less likely sbp, prn tranfusions if needed,further workup outpatient. paracentesis on 04/17/24 -removed 2 liter fluids , repeat ascitis tap today, albumin added . CAD Continue statin Paroxysmal AFib Continue metoprolol, amiodorone hold Xarelto due to anemia/epistaxis today epistaxis -?dry due to NC oxygen improved with pressure , will continue to moniter. GERD PPI Full Code. DVT Prophylaxis: as above Xarelto, will has scd . ongoing hospitalization for treatment of?acute HFrEF exacerbation nonresponsive to outpatient p.o. medications. He will need inpatient treatment with IV diuretics that require close monitoring of kidney function and electrolyte levels. d/w family overall prognosis guarded considering multiple medical medical issue mentioned above -family /patient decided for dnr/dni . if condition worsen will contact back family. above is d/w with his daughter malinda. Quality Stroke Does the patient have a stroke diagnosis?: No VTE Prior VTE?: No VTE Risk Level:: Medical - moderate - high VTE Device Contraindication: Treatment Not Indicated VTE Drug Contraindication: N/A - Med Ordered
--- NOTE | 2024-04-19 14:10 | MHC.CM.PN ---
EMR reviewed and per MD rounds, pt is not medically cleared for discharge due to management of CHF exacerbation.
[2024-04-19 14:42] LABS: Sodium Urine Random < 20.0 mmol/L
[2024-04-19] MEDS: Amiodarone HCL 200 MG TABLET PO (17:52)
[2024-04-19] MEDS: Atorvastatin Calcium 40 MG TABLET PO (20:08)
[2024-04-19] MEDS: Gabapentin 600 MG TABLET PO (20:08)
[2024-04-20] VITALS (9 sets, daily range): BP systolic 99–118; BP diastolic 50–60; PULSE 60–70; RESP 14–20; TEMP 36.5–36.8; O2SAT 97–100; BMI 33.8
[2024-04-20] MEDS: LORazepam 0.5 MG TABLET PO (00:01)
[2024-04-20] MEDS: cefTRIAXone sodium 1 GM VIAL IVPUSH ×2 (02:46→14:20)
[2024-04-20] MEDS: Albumin Human 25 % 100 ML IV ×5 (02:46→21:33)
[2024-04-20] MEDS: Levothyroxine Sodium 88 MCG TABLET PO (05:34)
[2024-04-20] MEDS: Pantoprazole Sodium 20 MG TABLET.DR 40 MG PO (05:34)
[2024-04-20] MEDS: Furosemide 200 MG in 0.9 % Sodium Chloride 80 ML IVCONT (05:34)
[2024-04-20] MEDS: Ferrous Sulfate 324 MG TABLET.DR PO (05:34)
--- NOTE | 2024-04-20 08:30 | P.PNNP_ITS ---
Subjective Subjective Date of Service: 04/20/24 Principal diagnosis: Decompensated congestive heart failure Interval history: 83 y/o male with medical history of cardiac arrest (03/2023), biventricular ICD in place, HFrEF, CKD3, paroxysmal afib on xarelto, CAD, PVD, asthma, GERD, gout, KEVIN on CPAP. ED on 04/12 with dyspnea, weight gain, pedal edema for past few weeks. Referred to nephrology for LIBRA on CKD3 in setting of CHF exacerbation. GFR in 20s Creatinine trend: 02/21/24 1.75 02/24/24 2.61 02/26/24 2.64 03/03/24 2.31 03/22/24 2.94 04/01/24 2.24 04/12/24 2.93 04/13/24 2.48 04/14/24 2.32 04/15/24 2.06 04/16/24 2.00 04/18/24 2.51 04/19/24 2.92 04/20/24 3.05 Urine bland 03/03/24 Renal US 02/11/[address] abd/pelvis kidneys and ureters unremarkable. patient has had mild hyponatremia since 02/24/24 has worsening chronic normocytic anemia ( since at least September 2023, he is on iron supplementation) Patient states his breathing is comfortable but he has a wet cough/upper airway phlegm states he is urinating regularly/comfortably, but not as much as he would expect for all of the diuretics he is receiving (UOP 1200mL last 24hr) denies abdominal pain but states he feels bloated and passes a lot of gas, he is passing stool. he denies other concerns/symptoms Physical Exam 2 Vital Signs: Vital Signs: Last Vital Signs Temp 98.3 F 04/20/24 11:17 Pulse 60 04/20/24 11:17 Resp 18 04/20/24 11:17 BP 108/58 L 04/20/24 11:17 Pulse Ox 97 04/20/24 11:17 O2 Del Method Room Air 04/20/24 11:17 O2 Flow Rate 2 04/19/24 07:42 BMI result Body Mass Index 33.8 Const: General: comfortable, alert and awake Resp: Effort & Inspection: normal respiratory effort and able to speak in complete sentences Auscultation: rhonchi Cardio: Rate: regular rate Rhythm: regular rhythm Heart sounds: S1 normal heart sound present and S2 normal heart sound present GI: Palpation (GI): Soft to palpation and nontender : General: Yes no CVA tenderness Back/Spine/Pelvis: Back: no CVA tenderness Skin: Rashes: no rashes Extrem: General: Yes edema (BLE pitting +1) Objective Data Labs 04/20/24 08:32 04/20/24 08:01 Labs: Laboratory Results - last 24 hr 04/19/24 04/19/24 04/20/24 11:53 14:02 08:01 Hgb Hct Sodium 131 L Potassium 4.4 Chloride 93 L Carbon Dioxide 25 Anion Gap 17 BUN 77 H Creatinine 3.05 H Estim Creat Clear Calc 19.1 Estimated GFR 20 Random Glucose 142 H Calcium 8.8 B-Natriuretic Peptide Ur Random Sodium < 20.0 Blood Type A Positive Antibody Screen NEGATIVE Crossmatch See Detail 04/20/24 08:32 Hgb 8.3 L Hct 24.9 L Sodium Potassium Chloride Carbon Dioxide Anion Gap BUN Creatinine Estim Creat Clear Calc Estimated GFR Random Glucose Calcium B-Natriuretic Peptide 1346 H Ur Random Sodium Blood Type Antibody Screen Crossmatch Microbiology Microbiology Results: Microbiology 04/16/24 11:50 Abdominal Fluid Gram Stain - Final 04/16/24 11:50 Abdominal Fluid Routine Culture - Final No growth after 2 days 04/16/24 11:50 Abdominal Fluid Anaerobic Culture - Preliminary No growth to date. 04/17/24 08:58 Sputum - Expectorated Gram Stain - Final 04/17/24 08:58 Sputum - Expectorated Sputum Culture - Preliminary Gram negative marc Procedures Date of Service Date of Service: 04/20/24 Assessment & Plan Assessment and plan (1) LIBRA (acute kidney injury): Status: Acute (2) CKD (chronic kidney disease): Status: Acute (3) Acute on chronic diastolic (congestive) heart failure: Status: Acute (4) Hyponatremia: Status: Acute Plan LIBRA on CKD likely hypoperfusion in setting of heart failure exacerbation creatinine at baseline CKD, has had slight uptrend in last few days in setting of diuresis with serum sodium <20. Recommend checking chest xray to assess for pulmonary congestion, if wet, defer to cardiology for diuresis (ok to tolerate mild increase in creatinine in order to address heart failure if needed). If chest xray without congestion, recommend continuing diuresis as ordered. chronic anemia- does have iron deficiency, taking oral iron, he is absorbing as iron stores have increased over time with oral iron supplementation. recommend continuing iron supplementation and will follow up outpatient for continued management recommend daily electrolyte and renal function studies, replace potassium as needed Will continue to follow Discussed with Dr Wren Time Spent With Patient Time: Total time managing care of this patient today ____ minutes. Progress Note: Quality Stroke Does the patient have a stroke diagnosis?: No
[2024-04-20 08:48] LABS: Hematocrit 24.9 % (42.0-52.0); Hemoglobin 8.3 g/dl (14.0-18.0)
[2024-04-20 08:52] LABS: Anion Gap 17 (12-20); Blood Urea Nitrogen 77 mg/dL (9-16); Calcium 8.8 mg/dL (8.4-10.2); Carbon Dioxide 25 mmol/L (22-29); Chloride 93 mmol/L (96-108); Creatinine Clr Calc Pharmacy 19.1; Estimated Glomerular Filt Rate 20; Glucose Random 142 mg/dL (60-115); Potassium 4.4 mmol/L (3.3-5.1); Sodium 131 mmol/L (135-145)
[2024-04-20] MEDS: Potassium Chloride ER 20 MEQ TAB.ER.PRT 40 MEQ PO ×2 (09:02→21:33)
[2024-04-20] MEDS: allopurinoL 100 MG TABLET PO (09:02)
[2024-04-20] MEDS: Loratadine 10 MG TABLET PO (09:02)
[2024-04-20] MEDS: Magnesium Oxide 400 MG TABLET 800 MG PO ×2 (09:03→21:33)
[2024-04-20] MEDS: Finasteride 5 MG TABLET PO (09:03)
[2024-04-20] MEDS: 0.9 % Sodium Chloride Flush 3 ML SYRINGE IVFLUSH ×2 (09:03→14:21)
[2024-04-20 09:15] LABS: B Type Natriuretic Peptide 1346 pg/mL (<100)
--- NOTE | 2024-04-20 10:01 | P.PNCA_ITS ---
Subjective Subjective Date of Service: 04/20/24 Principal diagnosis: Decompensated congestive heart failure Interval history: Patient says he feels better. Complains of some bleeding from the left nostril half a blowing his nose. Did not receive any transfusions. Hematocrit is stable. Creatinine is stable. Overall intake output chart suggest positive balance overnight. His leg edema is improved. Yesterday remote 2 L of ascites. Review of Systems Constitutional: Reports weakness Eyes: Reports no additional eye complaints Cardiovascular: Denies chest pain, Denies syncope, Denies rapid heart rate, Reports leg edema (Improved), Denies Loss of Consciousness and Reports dyspnea (Improved) Respiratory: Reports dyspnea (Improved) Denies syncope and Reports weakness Physical Exam Vital Signs: Last Vital Signs Temp 98 F 04/20/24 07:50 Pulse 60 04/20/24 09:18 Resp 16 04/20/24 07:50 BP 110/59 L 04/20/24 09:18 Pulse Ox 98 04/20/24 09:18 O2 Del Method Room Air 04/20/24 07:50 O2 Flow Rate 2 04/19/24 07:42 BMI result Body Mass Index 33.8 Const General: cooperative, comfortable, alert, awake and tired appearing Nutritional Appearance: obese Orientation/consciousness: patient oriented x3 Neck Neck: Yes trachea midline, Yes supple and Yes JVD Resp Effort & Inspection: decreased respiratory effort Auscultation: no rales, no wheezes and diminished lung sounds Cardio Jugular venous distension: JVD Rate: regular rate Rhythm: regular rhythm Heart sounds: S1 normal heart sound present, S2 normal heart sound present, no click, no gallops and Murmur heart sound present GI Inspection: Yes distended Auscultation: normal bowel sounds Skin General skin exam: no rashes or lesions noted Neuro General: patient oriented x3 and no focal motor deficits Extrem General: No clubbing, No cyanosis and Yes edema (Improved) Objective Labs and Meds 04/20/24 08:32 04/20/24 08:01 Lab results: Laboratory Results - last 24 hr 04/19/24 04/19/24 04/20/24 11:53 14:02 08:01 Hgb Hct Sodium 131 L Potassium 4.4 Chloride 93 L Carbon Dioxide 25 Anion Gap 17 BUN 77 H Creatinine 3.05 H Estim Creat Clear Calc 19.1 Estimated GFR 20 Random Glucose 142 H Calcium 8.8 B-Natriuretic Peptide Ur Random Sodium < 20.0 Blood Type A Positive Antibody Screen NEGATIVE Crossmatch See Detail 04/20/24 08:32 Hgb 8.3 L Hct 24.9 L Sodium Potassium Chloride Carbon Dioxide Anion Gap BUN Creatinine Estim Creat Clear Calc Estimated GFR Random Glucose Calcium B-Natriuretic Peptide 1346 H Ur Random Sodium Blood Type Antibody Screen Crossmatch Progress Note: A&P Assessment and plan (1) Acute on chronic diastolic (congestive) heart failure: Status: Acute Assessment and Plan: Acute decompensated congestive heart failure, advanced with poor response to diuretic therapy with multiple comorbidities including significant anemia, advancing kidney disease, paced rhythm, underlying atrial fibrillation, CAD, advancing age and frailty. Much limitations in optimizing medications due to low blood pressure. Clinically still appears mildly fluid overloaded. Give 1 dose of metolazone today. Follow-up BMP and BNP tomorrow. Replace electrolytes as needed. Continue Lasix drip for 1 more day. Out of bed to chair. Incentive spirometry. Physical therapy consult with plan for possible assisted facility placement for rehab. Overall prognosis guarded. Will follow with you Time Spent With Patient Time: Total time managing care of this patient today ____ minutes. Progress Note: Quality Stroke Does the patient have a stroke diagnosis?: No Procedures Date of Service Date of Service: 04/20/24
[2024-04-20] MEDS: metOLazone 2.5 MG TABLET PO (10:31)
--- NOTE | 2024-04-20 13:26 | P.PNIM_ITS ---
Subjective Subjective Date of Service: 04/20/24 Interval History: chf Review of Systems had paracentesis yesterday 2 L fluid removed Has leg edema,has dry cough, no sob at rest Physical Exam 2 Vital Signs: Vital Signs: Last Vital Signs Temp 98.3 F 04/20/24 11:17 Pulse 60 04/20/24 11:17 Resp 18 04/20/24 11:17 BP 108/58 L 04/20/24 11:17 Pulse Ox 97 04/20/24 11:17 O2 Del Method Room Air 04/20/24 11:17 O2 Flow Rate 2 04/19/24 07:42 BMI result Body Mass Index 33.8 Appearance: Alert.? Oriented X3.? cvs: rrr, [id number] , no murmur res: clear to auscultation ,no rhonchii or wheezing abd: no rebound or guarding ,nt, bs present. ext pulses present , no cyanosis ,leg edema 2+. neuro: axo3 , nonfocal. Objective Data Active Medications Acetaminophen (Acetaminophen 325 Mg Tablet) 650 mg PO Q6H PRN PRN Reason: Pain, Mild (Pain Scale 1-3), fever or headache Last Admin: 04/18/24 08:56 Dose: 650 mg Documented By: JOAQUIM Allopurinol (Allopurinol 100 Mg Tablet) 100 mg PO DAILY@0900 [facility] Last Admin: 04/20/24 09:02 Dose: 100 mg Documented By: NABEEL Amiodarone HCl (Amiodarone Hcl 200 Mg Tablet) 200 mg PO DAILY@1700 [facility] Last Admin: 04/19/24 17:52 Dose: 200 mg Documented By: PHOENIX Atorvastatin Calcium (Atorvastatin Calcium 40 Mg Tablet) 40 mg PO BEDTIME [facility] Last Admin: 04/19/24 20:08 Dose: 40 mg Documented By: LEDA Benzonatate (Benzonatate 100 Mg Capsule) 100 mg PO TID PRN PRN Reason: Cough Last Admin: 04/18/24 20:48 Dose: 100 mg Documented By: DIANA Calcium Carbonate (Calcium Carbonate 750 Mg Tab.Chew) 750 mg PO Q4H PRN PRN Reason: Heartburn Ceftriaxone Sodium (Ceftriaxone Sodium 1 Gm Vial) 1 gm IVPUSH Q12H [facility] Last Admin: 04/20/24 02:46 Dose: 1 gm Documented By: LEDA Cilostazol (Cilostazol 50 Mg Tablet) 50 mg PO BID [facility] Last Admin: 04/18/24 08:56 Dose: 50 mg Documented By: JOAQUIM Ferrous Sulfate (Ferrous Sulfate 324 Mg Tablet.Dr) 324 mg PO DAILY@0600 [facility] Last Admin: 04/20/24 05:34 Dose: 324 mg Documented By: LEDA Finasteride (Finasteride 5 Mg Tablet) 5 mg PO DAILY@0900 [facility] Last Admin: 04/20/24 09:03 Dose: 5 mg Documented By: NABEEL Gabapentin (Gabapentin 600 Mg Tablet) 600 mg PO BEDTIME [facility] Last Admin: 04/19/24 20:08 Dose: 600 mg Documented By: LEDA Guaifenesin (Guaifenesin 200 Mg/10 Ml 10 Ml Liquid) 10 ml PO Q4H PRN PRN Reason: Cough Last Admin: 04/18/24 08:58 Dose: 10 ml Documented By: JOAQUIM Furosemide 200 mg/ Sodium (Chloride) 100 mls @ 5 mls/hr IVCONT .Q20H [facility] Last Admin: 04/20/24 05:34 Dose: 10 mg/hr, 5 mls/hr Documented By: LEDA Albumin Human (Kedbumin 25 %) 100 mls @ 100 mls/hr IV Q6H [facility] Stop: 04/21/24 05:59 Last Infusion: 04/20/24 12:45 Dose: Infused Documented By: NABEEL Levothyroxine Sodium (Levothyroxine Sodium 88 Mcg Tablet) 88 mcg PO DAILY@0600 [facility] Last Admin: 04/20/24 05:34 Dose: 88 mcg Documented By: LEDA Loratadine (Loratadine 10 Mg Tablet) 10 mg PO DAILY [facility] Last Admin: 04/20/24 09:02 Dose: 10 mg Documented By: NABEEL Lorazepam (Lorazepam 0.5 Mg Tablet) 0.5 mg PO DAILY PRN PRN Reason: Anxiety Last Admin: 04/20/24 00:01 Dose: 0.5 mg Documented By: LEDA Magnesium Hydroxide (Milk Of Magnesia 30 Ml Oral.Susp) 30 ml PO DAILY PRN PRN Reason: Constipation Magnesium Oxide (Magnesium Oxide 400 Mg Tablet) 800 mg PO BID [facility] Last Admin: 04/20/24 09:03 Dose: 800 mg Documented By: NABEEL Melatonin (Melatonin 3 Mg Tablet) 6 mg PO BEDTIME PRN PRN Reason: Insomnia Ondansetron HCl (Ondansetron Hcl 4 Mg/2 Ml Vial) 4 mg IVPUSH Q6H PRN PRN Reason: Nausea and Vomiting Last Admin: 04/18/24 08:54 Dose: 4 mg Documented By: JOAQUIM Pantoprazole Sodium (Pantoprazole Sodium 20 Mg Latia.) 40 mg PO DAILY@0630 [facility] Last Admin: 04/20/24 05:34 Dose: 40 mg Documented By: LEDA Potassium Chloride (Potassium Chloride Er 20 Meq Tab.Er.Prt) 40 meq PO BID [facility] Last Admin: 04/20/24 09:02 Dose: 40 meq Documented By: NABEEL Rivaroxaban (Rivaroxaban 15 Mg Tablet) 15 mg PO DAILY@1700 [facility] Last Admin: 04/19/24 17:51 Dose: Not Given Documented By: PHOENIX Non-Admin Reason: per sabrina recinos Sodium Chloride (0.9 % Sodium Chloride Flush 3 Ml Syringe) 3 ml IVFLUSH QSHIFT [facility] Last Admin: 04/20/24 09:03 Dose: 3 ml Documented By: NABEEL Labs 04/20/24 08:32 04/20/24 08:01 Labs: Laboratory Results - last 24 hr 04/19/24 04/19/24 04/20/24 11:53 14:02 08:01 Anion Gap 17 Estim Creat Clear Calc 19.1 Estimated GFR 20 Random Glucose 142 H Calcium 8.8 B-Natriuretic Peptide Ur Random Sodium < 20.0 Blood Type A Positive Antibody Screen NEGATIVE Crossmatch See Detail 04/20/24 08:32 Anion Gap Estim Creat Clear Calc Estimated GFR Random Glucose Calcium B-Natriuretic Peptide 1346 H Ur Random Sodium Blood Type Antibody Screen Crossmatch Microbiology Microbiology Results: Microbiology 04/16/24 11:50 Gram Stain - Final Abdominal Fluid Routine Culture - Final No growth after 2 days Anaerobic Culture - Preliminary No growth to date. 04/17/24 08:58 Gram Stain - Final Sputum - Expectorated Sputum Culture - Preliminary Gram negative marc Assessment and Plan (1) Acute on chronic combined systolic and diastolic CHF (congestive heart failure): Status: Resolved Plan 83-year-old male with a past medical history significant for cardiac arrest (03/2023) s/p biventricular ICD in place, HFrEF, CKD3, paroxysmal a fib on xarelto, CAD, PVD, HLD, BPH, unspecified asthma, GERD, gout and KEVIN on nasal CPAP presented to the ED today with worsening shortness of breath, dyspnea, weight gain and pedal edema for the past few weeks. He was discharged on 02/20 for a CHF exacerbation and new diuretics were added. He returns again today for CHF exacerbation. acute CHF exacerbation - chest x-ray repeat (04/19/24) ordered -? chf - BNP elevated at [id number] - troponin chronically elevated but stable - EKG stable from previous monitor I's and O's neg 8 liters ,daily weights cardiology saw patient -hypotension seems to be improving -d/w cardio -continue lasix drip, added met. continue loratidine ,robitussin ,ceftriaxone for bronchitis ( patient has productive cough). vomiting(04/17/24) : no abd pain or nausea today zofran prn no new episode lft's normal no adb pain passing gases and bm's ( last on 04/18/24) ovidio vs CKD 3:in setting of chf Creatinine somewhat worseing 2.9 Follow kidney function closely while on diuretics. hypokalemia - repleted and resolved. continue potassium 40 meq po bid moniter bmp closely nephrology following Anemia of chronic disease p 1 prbc on 04/19: 8.09/06.5(seems similar) denies any ishmael bleeding or melena iron panel:low iron and sats but tibc and ferritin normal ,b12 and folate normal-?aocd fobt negative Continue iron supplementation Follow CBC Elevated lft mild, Ascitis -? unclear etiology paracentesis -less likely sbp,cultures negative paracentesis on 04/17/24 -removed 2 liter fluids , repeat ascitis 04/19/24 - another 2 liter fluid removed, albumin added . Gi- less likely sbp, prn tranfusions if needed,further workup outpatient. CAD Continue statin Paroxysmal AFib Continue metoprolol, amiodorone hold Xarelto due to anemia/epistaxis today epistaxis -?dry due to [place] oxygen improved with pressure , will continue to moniter. GERD PPI Full Code. DVT Prophylaxis: as above Xarelto, will has scd . ongoing hospitalization for treatment of?acute HFrEF exacerbation nonresponsive to outpatient p.o. medications. He will need inpatient treatment with IV diuretics that require close monitoring of kidney function and electrolyte levels. d/w family overall prognosis guarded considering multiple medical medical issue mentioned above -family /patient decided for dnr/dni . if condition worsen will contact back family. above is d/w with his daughter malinda. Quality Stroke Does the patient have a stroke diagnosis?: No VTE Prior VTE?: No VTE Risk Level:: Medical - moderate - high VTE Device Contraindication: Treatment Not Indicated VTE Drug Contraindication: N/A - Med Ordered
--- NOTE | 2024-04-20 14:03 | PC.NURSE ---
stage 2 pressure injury to coccyx , foma dresing applied , wound consult, pt oob to recliner, reposition q 2 hrs
--- NOTE | 2024-04-20 14:06 | HO.SKINPHOTO ---
Location:coccyx stage 2 pressure injury Category: Stage: Length: Width: Depth: cm Location: Category: Stage: Length: Width: Depth: cm Location: Category: Stage: Length: Width: Depth: cm Location: Category: Stage: Length: Width: Depth: cm Location: Category: Stage: Length: Width: Depth: cm Location: Category: Stage: Length: Width: Depth: cm
[2024-04-20 14:16] LABS: Procalcitonin 0.23 ng/mL
[2024-04-20 15:48] LABS: Kappa, Serum 149 mg/dL (176-443); Kappa/Lambda Ratio, Serum 1.31 (1.29-2.55); Lambda, Serum 114 mg/dL (91-240)
--- NOTE | 2024-04-20 17:00 | PC.NURSE ---
Report received from night RN ,Lasix is running at 5mg/2.5ml/hr, medication was adjusted as ordered at 14:30 as per MD order 10 mg/hr/5ml/hr . DR Blas was notified ,continue monitor I+O
[2024-04-20] MEDS: Amiodarone HCL 200 MG TABLET PO (17:09)
[2024-04-20] MEDS: Gabapentin 600 MG TABLET PO (21:32)
[2024-04-20] MEDS: Atorvastatin Calcium 40 MG TABLET PO (21:33)
[2024-04-21] VITALS (8 sets, daily range): BP systolic 103–120; BP diastolic 55–61; PULSE 60–63; RESP 18–20; TEMP 36.5–37.6; O2SAT 96–100; BMI 33.7
[2024-04-21] MEDS: Albumin Human 25 % 100 ML IV ×2 (04:49→15:48)
[2024-04-21] MEDS: Furosemide 200 MG in 0.9 % Sodium Chloride 80 ML IVCONT (04:54)
[2024-04-21] MEDS: ondansetron HCL 4 MG/2 ML VIAL IVPUSH (04:58)
[2024-04-21] MEDS: Ferrous Sulfate 324 MG TABLET.DR PO (05:30)
[2024-04-21] MEDS: Levothyroxine Sodium 88 MCG TABLET PO (05:30)
[2024-04-21] MEDS: Pantoprazole Sodium 20 MG TABLET.DR 40 MG PO (05:32)
--- NOTE | 2024-04-21 08:30 | PM.PNNEP ---
Subjective Subjective Date of Service: 04/21/24 Principal diagnosis: Decompensated congestive heart failure Interval history: 83 y/o male with medical history of cardiac arrest (03/2023), biventricular ICD in place, HFrEF, CKD3, paroxysmal afib on xarelto, CAD, PVD, asthma, GERD, gout, KEVIN on CPAP. ED on 04/12 with dyspnea, weight gain, pedal edema for past few weeks. Referred to nephrology for LIBRA on CKD3 in setting of CHF exacerbation. GFR in 20s Creatinine trend: 02/21/24 1.75 02/24/24 2.61 02/26/24 2.64 03/03/24 2.31 03/22/24 2.94 04/01/24 2.24 04/12/24 2.93 04/13/24 2.48 04/14/24 2.32 04/15/24 2.06 04/16/24 2.00 04/18/24 2.51 04/19/24 2.92 04/20/24 3.05 04/21/24 3.26 Urine bland 03/03/24 Renal US 02/11/[address] abd/pelvis kidneys and ureters unremarkable. patient has had mild hyponatremia since 02/24/24 has worsening chronic normocytic anemia (since at least September 2023, he is on iron supplementation) Patient states his breathing is ok but he has a wet cough/upper airway phlegm states he is urinating regularly/comfortably- UOP 900mL last 24hr he denies other concerns/symptoms patient's abdomen significantly distended today and firm, he denies pain/tenderness and is moving his bowels Physical Exam Vital Signs: Vital Signs: Last Vital Signs Temp 98.4 F 04/21/24 11:04 Pulse 60 04/21/24 11:04 Resp 18 04/21/24 11:04 BP 115/58 L 04/21/24 11:04 Pulse Ox 99 04/21/24 11:04 O2 Del Method Room Air 04/21/24 11:04 O2 Flow Rate 2 04/19/24 07:42 BMI result Body Mass Index 33.7 Const: General: cooperative, comfortable, alert, awake and tired appearing Nutritional Appearance: obese Orientation/consciousness: patient oriented x3 Neck: Neck: Yes trachea midline, Yes supple and Yes JVD Resp: Effort & Inspection: decreased respiratory effort Auscultation: no rales, no wheezes and diminished lung sounds Cardio: Jugular venous distension: JVD Rate: regular rate Rhythm: regular rhythm Heart sounds: S1 normal heart sound present, S2 normal heart sound present, no click, no gallops and Murmur heart sound present GI: Inspection: Yes distended Auscultation: normal bowel sounds Skin: General skin exam: no rashes or lesions noted Neuro: General: patient oriented x3 and no focal motor deficits Extrem: General: No clubbing, No cyanosis and Yes edema (+1 BLE ) Objective Data Labs 04/20/24 08:32 04/21/24 09:00 Labs: Laboratory Results - last 24 hr 04/15/24 04/18/24 04/20/24 05:43 07:34 08:01 Hold Purple Top Sodium Potassium Chloride Carbon Dioxide Anion Gap BUN Creatinine Estim Creat Clear Calc Estimated GFR Random Glucose Calcium Procalcitonin 0.23 [place]/Lambda Ratio 1.31 Anti-Mitochondrial Ab NEGATIVE [place] Light Chain Anal 149 L Lambda Light Chain Anal 114 04/21/24 09:00 Hold Purple Top SEE NOTE Sodium 128 L Potassium 5.6 H D Chloride 92 L Carbon Dioxide 23 Anion Gap 19 BUN 81 H Creatinine 3.26 H Estim Creat Clear Calc 17.8 Estimated GFR 18 Random Glucose 131 H Calcium 9.0 Procalcitonin [place]/Lambda Ratio Anti-Mitochondrial Ab [place] Light Chain Anal Lambda Light Chain Anal Microbiology Microbiology Results: Microbiology 04/17/24 08:58 Sputum - Expectorated Gram Stain - Final 04/17/24 08:58 Sputum - Expectorated Sputum Culture - Preliminary Gram negative marc 04/16/24 11:50 Abdominal Fluid Gram Stain - Final 04/16/24 11:50 Abdominal Fluid Routine Culture - Final No growth after 2 days 04/16/24 11:50 Abdominal Fluid Anaerobic Culture - Final NO GROWTH AFTER 5 DAYS Procedures Date of Service Date of Service: 04/21/24 Assessment & Plan Assessment and plan (1) LIBRA (acute kidney injury): Status: Acute (2) CKD (chronic kidney disease): Status: Acute (3) Acute on chronic diastolic (congestive) heart failure: Status: Acute (4) Hyponatremia: Status: Acute Plan LIBRA on CKD likely hypoperfusion in setting of heart failure exacerbation creatinine returned to baseline CKD, has had uptrend in last few days in setting of diuresis with serum sodium <20. Clinically remains fluid overloaded, recommend continuing diuresis, may come with rise in creatinine which we will accept recommend 1x 25gm albumin infusion prior to abdominal paracentesis should he need one recommend daily electrolyte and renal function studies, replace potassium as needed no indication for renal replacement at this time continue supportive care Will continue to follow Discussed with Dr Wren Time Spent With Patient Time: Total time managing care of this patient today ____ minutes. Progress Note: Quality Stroke Does the patient have a stroke diagnosis?: No
[2024-04-21] MEDS: Loratadine 10 MG TABLET PO (09:17)
[2024-04-21] MEDS: Magnesium Oxide 400 MG TABLET 800 MG PO ×2 (09:18→21:11)
[2024-04-21] MEDS: Potassium Chloride ER 20 MEQ TAB.ER.PRT 40 MEQ PO (09:18)
[2024-04-21] MEDS: allopurinoL 100 MG TABLET PO (09:18)
[2024-04-21] MEDS: Finasteride 5 MG TABLET PO (09:18)
[2024-04-21] MEDS: 0.9 % Sodium Chloride Flush 3 ML SYRINGE IVFLUSH ×2 (09:18→15:48)
[2024-04-21 09:57] LABS: Anion Gap 19 (12-20); Blood Urea Nitrogen 81 mg/dL (9-16); Carbon Dioxide 23 mmol/L (22-29); Chloride 92 mmol/L (96-108); Creatinine Clr Calc Pharmacy 17.8; Estimated Glomerular Filt Rate 18; Glucose Random 131 mg/dL (60-115); Potassium 5.6 mmol/L (3.3-5.1); Sodium 128 mmol/L (135-145)
--- NOTE | 2024-04-21 10:17 | P.PNCA_ITS ---
Subjective Subjective Date of Service: 04/21/24 Principal diagnosis: Decompensated congestive heart failure Interval history: Patient has developed overnight significant abdominal distension again. He said he has been not diuresing well. His intake output chart suggest positive balance. His creatinine in his marginally worse. He is having belly discomfort and had nausea overnight. Review of Systems Constitutional: Reports fatigue and Reports lethargy Eyes: Reports no additional eye complaints Cardiovascular: Reports Abdominal Distension, Denies rapid heart rate, Reports leg edema, Denies lightheadedness, Denies Loss of Consciousness, Denies palpitations and Reports dyspnea Respiratory: Reports no additional respiratory complaints and Reports dyspnea Endocrine: Reports fatigue and Denies palpitations Physical Exam Vital Signs: Last Vital Signs Temp 98.3 F 04/21/24 07:19 Pulse 60 04/21/24 07:19 Resp 18 04/21/24 07:19 BP 109/57 L 04/21/24 07:19 Pulse Ox 100 04/21/24 07:19 O2 Del Method Room Air 04/21/24 07:19 O2 Flow Rate 2 04/19/24 07:42 BMI result Body Mass Index 33.7 Const General: cooperative, comfortable, alert, awake and tired appearing Nutritional Appearance: obese Orientation/consciousness: patient oriented x3 Neck Neck: Yes trachea midline, Yes supple and Yes JVD Resp Effort & Inspection: decreased respiratory effort Auscultation: no rales, no wheezes and diminished lung sounds Cardio Jugular venous distension: JVD Rate: regular rate Rhythm: regular rhythm Heart sounds: S1 normal heart sound present, S2 normal heart sound present, no click, no gallops and Murmur heart sound present GI Inspection: Yes distended Auscultation: normal bowel sounds Skin General skin exam: no rashes or lesions noted Neuro General: patient oriented x3 and no focal motor deficits Extrem General: No clubbing, No cyanosis and Yes edema (Improved) Objective Labs and Meds 04/20/24 08:32 04/21/24 09:00 Lab results: Laboratory Results - last 24 hr 04/15/24 04/20/24 04/21/24 05:43 08:01 09:00 Hold Purple Top SEE NOTE Sodium 128 L Potassium 5.6 H D Chloride 92 L Carbon Dioxide 23 Anion Gap 19 BUN 81 H Creatinine 3.26 H Estim Creat Clear Calc 17.8 Estimated GFR 18 Random Glucose 131 H Calcium 9.0 Procalcitonin 0.23 [place]/Lambda Ratio 1.31 [place] Light Chain Anal 149 L Lambda Light Chain Anal 114 Imaging Radiologist's impression: Impressions Paracentesis Ultrasound 04/19/24 14:30 Impression: Ultrasound-guided paracentesis as described above. No immediate complications Electronically signed by: Jeremy Saha MD 04/20/2024 01:44 PM EST RP Chest X-Ray 04/20/24 11:20 IMPRESSION: Moderate predominantly left basilar opacities. This study was presented today, 04/20/2024, for interpretation. Stat results provided at this time as requested by referring provider. Electronically signed by: Rachna Marie MD 04/20/2024 12:42 PM EST RP Progress Note: A&P Assessment and plan (1) Acute on chronic diastolic (congestive) heart failure: Status: Acute Assessment and Plan: Extremely resistant advanced diastolic heart failure predominantly right heart failure future with advanced kidney dysfunction. Overall prognosis guarded. Patient developing some hyponatremia as hyperkalemia. Would intensify his diuretic regimen. Switch to Bumex drip and give metolazone 5 mg daily. We discussed about possible renal replacement therapy and/or ultra filtration. Will discuss with the Nephrology team. Will obtain echocardiogram to assess his pretty advanced heart failure as to whether he has developed some mechanical issues with RV dysfunction and/or tricuspid regurgitation causing his significant right heart failure. Overall prognosis guarded. Discussed with him in his daughter. Will follow with you Time Spent With Patient Time: Total time managing care of this patient today ____ minutes. Progress Note: Quality Stroke Does the patient have a stroke diagnosis?: No Procedures Date of Service Date of Service: 04/21/24
[2024-04-21] MEDS: metOLazone 5 MG TABLET PO (10:36)
[2024-04-21] MEDS: Bumetanide 25 MG in Container,Empty 0 ML IVCONT (11:28)
[2024-04-21 11:43] LABS: Mitochondrial Antibodies NEGATIVE (NEGATIVE)
--- NOTE | 2024-04-21 12:00 | CA_ITS ---
Transthoracic Echocardiogram Patient (Last, First, Middle): Sherman Hurtado P Gender: Male Date of : 1940 Age: 83 Procedure Date: 04/21/2024 Procedure Type: Transthoracic Echocardiogram Location: [facility] [place] Height: 162.56 cm Weight: 88.91 kg BSA: 1.94 m2 Heart Rate: 62 bpm BP: 109 / 57 mmHg [place]: SB Referring MD: Segun Flores MD Chipper Feeder: Wolfgang Watson MD Symptoms: Right chf Study Quality: Adequate ECG Rhythm: Paced Conclusions: - Severely dilated right ventricle with moderately reduced systolic function with significantly elevated right atrial pressures Findings Right Ventricle Severely increased right ventricular cavity size. There is moderately decreased right ventricular systolic function. Tricuspid Valve Significantly elevated right atrial pressure. There is no evidence of pulmonary hypertension. Measurements 2D Linear Measurements IVSd: 0.81 0.6-0.9/0.6-1.0 cm LVIDd: 5.24 3.9-5.3/4.2-5.9 cm LVIDd Index: 2.70 2.4-3.2/2.2-3.1 cm/m2 LVIDs: 4.16 2.0-3.6 cm LVPWd: 0.97 0.7-1.1 cm LV Mass: 209.39 67-162/88-224 g LV Mass Index: 107.93 43-95/49-115 g/m2 2D Systolic Function EF 4C: 48.80 >55% EF 2C: 48.00 >55% EF BiP: 48.60 >55% Mitral Valve MV Pk E: 0.99 MV Decel Time: 247.00 E'Lateral: 5.93 E'Medial: 4.19 E/E' Med: 23.60 E/E' Lat: 16.70 PHT: 72.00 MVA PHT: 3.06 Decel [place]: 4.01 Diastolic Function MV Pk E: 0.99 E'Medial: 4.19 E/E' Med: 23.60 E' Laterial: 5.93 E/E' Lat: 16.70 Right Ventricle TAPSE (mm): 13.70 TVS' Thaddeus: 7.35 Tricuspid Valve TR Pk Thaddeus: 2.46 TR Pk Grad: 24.00 RA Press: 15.00 RVSP: 39.00 Updated in Other Vendor System with Status of Final Wolfgang Watson MD electronically signed on 04/21/2024 4:30:46 PM with status of Final
--- NOTE | 2024-04-21 14:27 | MHC.CM.PN ---
Pt is not medically cleared, he requires ongoing hospital care for tx of HFrEF exacerbation.
[2024-04-21] MEDS: Lidocaine HCl 1 % 20 ML VIAL 5 ML SUBCUT (15:43)
[2024-04-21] MEDS: cefTRIAXone sodium 1 GM VIAL IVPUSH (15:48)
--- NOTE | 2024-04-21 15:51 | HO.WOUND ---
Wound Consult: Initial 83yr old?male admitted to [facility] [place] on 04/12/24 - See progress notes and H&P for detailed history.? Wound consult placed for Sacral wound.? Patient agreeable to assessment and photo documentation.? Sacrum / Coccyx Etiology: ?Deep Tissue Injury Wound Bed: Intact dark purple nonblanchable tissue Drainage / Odor: None Edges: ? defined Kyung wound: red pink blanchable tissue ? No Induration, Fluctuance or Warmth noted Pain: patient reports pain Goals of Treatment: ? Protect from moisture and friction foam applied to aid in pressure redistribution and off load pressure with turns and wedges. Recommendations: 1. Turn and Reposition every 2 hours and as needed for patient comfort.? Use pillows or wedges to support off loading positions. 2. Off Load all bony prominences with use of pillows and heel boots if needed.? Apply Preventative foams where needed. ? 3. Monitor for incontinence and moisture control, use barrier creams when needed for prevention and treatment. 4. Provide adequate and supplemental nutrition.? 5. Order low air loss mattress. 6. When applicable maintain blood glucose levels per Providers order. 7. Sacrum - Off Load Pressure - Routine cleansing, pat dry. Apply sacral foam dressing. Change every 5 days and PRN. Re-consult wound care Nurse for wound deterioration or wound changes.
--- NOTE | 2024-04-21 16:03 | PC.NURSE ---
back from Parenthesis ,abdomen less distended ,dsg to left lower abdomen dry and intact
[2024-04-21] MEDS: Amiodarone HCL 200 MG TABLET PO (17:03)
[2024-04-21] MEDS: Gabapentin 600 MG TABLET PO (21:10)
[2024-04-21] MEDS: guaiFENesin 200 MG/10 ML 10 ML LIQUID PO (21:11)
[2024-04-21] MEDS: Atorvastatin Calcium 40 MG TABLET PO (21:11)
[2024-04-22] VITALS (8 sets, daily range): BP systolic 97–108; BP diastolic 45–57; PULSE 60–63; RESP 18–20; TEMP 36.2–36.8; O2SAT 95–100; BMI 33.0
[2024-04-22] MEDS: Pantoprazole Sodium 20 MG TABLET.DR 40 MG PO (05:56)
[2024-04-22] MEDS: Ferrous Sulfate 324 MG TABLET.DR PO (05:57)
[2024-04-22] MEDS: Levothyroxine Sodium 88 MCG TABLET PO (05:57)
[2024-04-22 08:13] LABS: Cortisol Random 13.1 ug/dL
[2024-04-22] MEDS: Magnesium Oxide 400 MG TABLET 800 MG PO ×2 (08:29→20:28)
[2024-04-22] MEDS: Finasteride 5 MG TABLET PO (08:29)
[2024-04-22] MEDS: allopurinoL 100 MG TABLET PO (08:30)
[2024-04-22] MEDS: 0.9 % Sodium Chloride Flush 3 ML SYRINGE IVFLUSH (08:30)
[2024-04-22] MEDS: Loratadine 10 MG TABLET PO (08:30)
--- NOTE | 2024-04-22 10:14 | P.PNNP_ITS ---
Subjective Subjective Date of Service: 04/22/24 Principal diagnosis: Decompensated congestive heart failure Interval history: 83 y/o male with medical history of cardiac arrest (03/2023), biventricular ICD in place, HFrEF, CKD3, paroxysmal afib on xarelto, CAD, PVD, asthma, GERD, gout, KEVIN on CPAP. ED on 04/12 with dyspnea, weight gain, pedal edema for past few weeks. Referred to nephrology for LIBRA on CKD3 in setting of CHF exacerbation. GFR in 20s creatinine generally in 2's, has been trending up with continued diuresis 04/16/24 2.00 04/18/24 2.51 04/19/24 2.92 04/20/24 3.05 04/21/24 3.26 04/22/24 2.84 Urine bland 03/03/24 Renal US 02/11/[address] abd/pelvis kidneys and ureters unremarkable. patient has had mild hyponatremia since 02/24/24 has worsening chronic normocytic anemia (since at least September 2023, he is on iron supplementation) Patient states his breathing is ok, reports he feels his ongoing wet cough is improving states he is urinating regularly/comfortably- UOP 1650mL last 24hr he denies other concerns/symptoms patient's abdomen is mildly distended and firm (improved from yesterday- pt had therapeutic paracentesis with 2L fluid removed). Physical Exam 2 Vital Signs: Vital Signs: Last Vital Signs Temp 97.9 F 04/22/24 07:22 Pulse 61 04/22/24 07:22 Resp 20 04/22/24 07:22 BP 108/54 L 04/22/24 07:22 Pulse Ox 96 04/22/24 07:22 O2 Del Method CPAP 04/22/24 07:22 O2 Flow Rate 2 04/19/24 07:42 BMI result Body Mass Index 33.0 Const: General: cooperative, comfortable, alert, awake and tired appearing Nutritional Appearance: obese Orientation/consciousness: patient oriented x3 Neck: Neck: Yes trachea midline, Yes supple and Yes JVD Resp: Effort & Inspection: decreased respiratory effort Auscultation: no rales, no wheezes and diminished lung sounds Cardio: Jugular venous distension: JVD Rate: regular rate Rhythm: r egular rhythm Heart sounds: S1 normal heart sound present, S2 normal heart sound present, no click, no gallops and Murmur heart sound present GI: Inspection: Yes distended Auscultation: normal bowel sounds Skin: General skin exam: no rashes or lesions noted Neuro: General: patient oriented x3 and no focal motor deficits Extrem: General: No edema Objective Data Labs 04/20/24 08:32 04/22/24 09:53 Labs: Laboratory Results - last 24 hr 04/18/24 04/22/24 07:34 07:18 Random Cortisol 13.1 Anti-Mitochondrial Ab NEGATIVE Microbiology Microbiology Results: Microbiology 04/17/24 08:58 Sputum - Expectorated Gram Stain - Final 04/17/24 08:58 Sputum - Expectorated Sputum Culture - Final Achromobacter species 04/16/24 11:50 Abdominal Fluid Gram Stain - Final 04/16/24 11:50 Abdominal Fluid Routine Culture - Final No growth after 2 days 04/16/24 11:50 Abdominal Fluid Anaerobic Culture - Final NO GROWTH AFTER 5 DAYS Procedures Date of Service Date of Service: 04/22/24 Assessment & Plan Assessment and plan (1) LIBRA (acute kidney injury): Status: Acute (2) CKD (chronic kidney disease): Status: Acute (3) Acute on chronic diastolic (congestive) heart failure: Status: Acute (4) Hyponatremia: Status: Acute Plan LIBRA on CKD likely hypoperfusion in setting of heart failure exacerbation creatinine returned to baseline CKD, then had uptrend in setting of diuresis with serum sodium <20. Clinically remains fluid overloaded, recommend continuing diuresis, may come with rise in creatinine which we will accept; his creatinine has improved today closer to baseline with more aggressive diuresis so recommend continuing current regimen. hyperkalemia on 04/21 likely due to heart failure as serum cortisol is normal recommend 1x 25gm albumin infusion prior to paracentesis if needed recommend daily electrolyte and renal function studies, replace potassium as needed no indication for renal replacement at this time continue supportive care Will continue to follow Discussed with Dr Wren Time Spent With Patient Time: Total time managing care of this patient today ____ minutes. Progress Note: Quality Stroke Does the patient have a stroke diagnosis?: No
--- NOTE | 2024-04-22 10:32 | HO.PM.IMPN ---
Subjective Subjective Date of Service: 04/22/24 Interval History: some relief post paracenteswis, reporting urinating Physical Exam Vital Signs: Vital Signs: Last Vital Signs Temp 97.9 F 04/22/24 07:22 Pulse 61 04/22/24 07:22 Resp 20 04/22/24 07:22 BP 108/54 L 04/22/24 07:22 Pulse Ox 96 04/22/24 07:22 O2 Del Method CPAP 04/22/24 07:22 O2 Flow Rate 2 04/19/24 07:42 BMI result Body Mass Index 33.0 abd still distended, non tender lungs clear, alert oriented times 3, no acute distress Objective Data Active Medications Acetaminophen (Acetaminophen 325 Mg Tablet) 650 mg PO Q6H PRN PRN Reason: Pain, Mild (Pain Scale 1-3), fever or headache Last Admin: 04/18/24 08:56 Dose: 650 mg Documented By: JOAQUIM Allopurinol (Allopurinol 100 Mg Tablet) 100 mg PO DAILY@0900 [facility] Last Admin: 04/22/24 08:30 Dose: 100 mg Documented By: JASON Amiodarone HCl (Amiodarone Hcl 200 Mg Tablet) 200 mg PO DAILY@1700 [facility] Last Admin: 04/21/24 17:03 Dose: 200 mg Documented By: NABEEL Atorvastatin Calcium (Atorvastatin Calcium 40 Mg Tablet) 40 mg PO BEDTIME [facility] Last Admin: 04/21/24 21:11 Dose: 40 mg Documented By: ERMA Benzonatate (Benzonatate 100 Mg Capsule) 100 mg PO TID PRN PRN Reason: Cough Last Admin: 04/18/24 20:48 Dose: 100 mg Documented By: DIANA Calcium Carbonate (Calcium Carbonate 750 Mg Tab.Chew) 750 mg PO Q4H PRN PRN Reason: Heartburn Ceftriaxone Sodium (Ceftriaxone Sodium 1 Gm Vial) 1 gm IVPUSH Q24H [facility] Last Admin: 04/21/24 15:48 Dose: 1 gm Documented By: NABEEL Cilostazol (Cilostazol 50 Mg Tablet) 50 mg PO BID [facility] Last Admin: 04/18/24 08:56 Dose: 50 mg Documented By: JOAQUIM Ferrous Sulfate (Ferrous Sulfate 324 Mg Tablet.Dr) 324 mg PO DAILY@0600 [facility] Last Admin: 04/22/24 05:57 Dose: 324 mg Documented By: ERMA Finasteride (Finasteride 5 Mg Tablet) 5 mg PO DAILY@0900 [facility] Last Admin: 04/22/24 08:29 Dose: 5 mg Documented By: JASON Gabapentin (Gabapentin 600 Mg Tablet) 600 mg PO BEDTIME [facility] Last Admin: 04/21/24 21:10 Dose: 600 mg Documented By: ERMA Guaifenesin (Guaifenesin 200 Mg/10 Ml 10 Ml Liquid) 10 ml PO Q4H PRN PRN Reason: Cough Last Admin: 04/21/24 21:11 Dose: 10 ml Documented By: ERMA Bumetanide 25 mg/ IV (Miscellaneous Supplies) 100 mls @ 2 mls/hr IVCONT .Q24H [facility] Last Admin: 04/21/24 11:28 Dose: 0.5 mg/hr, 2 mls/hr Documented By: NABEEL Levothyroxine Sodium (Levothyroxine Sodium 88 Mcg Tablet) 88 mcg PO DAILY@0600 [facility] Last Admin: 04/22/24 05:57 Dose: 88 mcg Documented By: ERMA Loratadine (Loratadine 10 Mg Tablet) 10 mg PO DAILY [facility] Last Admin: 04/22/24 08:30 Dose: 10 mg Documented By: JASON Magnesium Hydroxide (Milk Of Magnesia 30 Ml Oral.Susp) 30 ml PO DAILY PRN PRN Reason: Constipation Magnesium Oxide (Magnesium Oxide 400 Mg Tablet) 800 mg PO BID [facility] Last Admin: 04/22/24 08:29 Dose: 800 mg Documented By: JASON Melatonin (Melatonin 3 Mg Tablet) 6 mg PO BEDTIME PRN PRN Reason: Insomnia Ondansetron HCl (Ondansetron Hcl 4 Mg/2 Ml Vial) 4 mg IVPUSH Q6H PRN PRN Reason: Nausea and Vomiting Last Admin: 04/21/24 04:58 Dose: 4 mg Documented By: ERMA Pantoprazole Sodium (Pantoprazole Sodium 20 Mg Tablet.) 40 mg PO DAILY@0630 [facility] Last Admin: 04/22/24 05:56 Dose: 40 mg Documented By: ERMA Rivaroxaban (Rivaroxaban 15 Mg Tablet) 15 mg PO DAILY@1700 [facility] Last Admin: 04/19/24 17:51 Dose: Not Given Documented By: [place] Non-Admin Reason: per sabrina recinos Sodium Chloride (0.9 % Sodium Chloride Flush 3 Ml Syringe) [facility] Last Admin: 04/22/24 08:30 Dose: 3 ml Documented By: DELGADOAC Labs 04/20/24 08:32 04/21/24 09:00 Labs: Laboratory Results - last 24 hr 04/18/24 04/22/24 07:34 07:18 Mitochondrial AB Titer TNP Random Cortisol 13.1 Anti-Mitochondrial Ab NEGATIVE Microbiology Microbiology Results: Microbiology 04/17/24 08:58 Gram Stain - Final Sputum - Expectorated Sputum Culture - Final Achromobacter species 04/16/24 11:50 Gram Stain - Final Abdominal Fluid Routine Culture - Final No growth after 2 days Anaerobic Culture - Final NO GROWTH AFTER 5 DAYS Assessment and Plan (1) Acute on chronic diastolic (congestive) heart failure: Status: Acute Plan 83M PMH chf with recovered EF, cardiac arrest s/p AICD, ckd III, pafib, cad, pvd, hld, bph, kae presented with sob Acute on chronic CHF with recovered ejection fraction and right-sided heart failure complicated by ascites Continue Bumex infusion, Cardiology following, monitor electrolytes Status post 3 L paracentesis 04/21/2024 with albumin given Limited echo with significant right-sided dysfunction LIBRA and CKD 3 Likely cardiorenal, monitor closely while diuresing, nephro following Elevated LFTs due to right-sided heart failure Coronary disease Continue Xarelto and atorvastatin Paroxysmal atrial fibrillation continue amiodarone and Xarelto DVT prophylaxis on Xarelto DNR/DNI reason for continued hospitalization: Ongoing IV diuresis Quality Stroke Does the patient have a stroke diagnosis?: No VTE Prior VTE?: No VTE Risk Level:: Medical - moderate - high VTE Device Contraindication: Treatment Not Indicated VTE Drug Contraindication: N/A - Med Ordered
--- NOTE | 2024-04-22 10:34 | HO.WOUND ---
Wound Consult: Follow up 83yr old?male admitted to [facility] [place] [facility] [place] - See progress notes and H&P for detailed history.? Wound consult follow up for Sacral wound and wedges delivered to patient of off loading. Patient currently up to chair waffle cushion in use. Patient and direct care team instructed to limit sit time to 2 hr increments to aid in healing. Meaning patient should stand t relieve pressure and or ambulate prior to sitting again. Wound not assessed today details below were from yesterdays assessment. Sacrum / Coccyx Etiology: ?Deep Tissue Injury Wound Bed: Intact dark purple nonblanchable tissue Drainage / Odor: None Edges: ? defined Kyung wound: red pink blanchable tissue ? No Induration, Fluctuance or Warmth noted Pain: patient reports pain Goals of Treatment: ? Protect from moisture and friction foam applied to aid in pressure redistribution and off load pressure with turns and wedges. Recommendations: 1. Turn and Reposition every 2 hours and as needed for patient comfort.? Use pillows or wedges to support off loading positions. 2. Off Load all bony prominences with use of pillows and heel boots if needed.? Apply Preventative foams where needed. ? 3. Monitor for incontinence and moisture control, use barrier creams when needed for prevention and treatment. 4. Provide adequate and supplemental nutrition.? 5. Order low air loss mattress. 6. When applicable maintain blood glucose levels per Providers order. 7. Sacrum - Off Load Pressure - Routine cleansing, pat dry. Apply sacral foam dressing. Change every 5 days and PRN. Re-consult wound care Nurse for wound deterioration or wound changes.
[2024-04-22 10:40] LABS: Anion Gap 21 (12-20); Blood Urea Nitrogen 79 mg/dL (9-16); Calcium 9.3 mg/dL (8.4-10.2); Carbon Dioxide 23 mmol/L (22-29); Chloride 92 mmol/L (96-108); Creatinine Clr Calc Pharmacy 20.3; Estimated Glomerular Filt Rate 22; Glucose Random 103 mg/dL (60-115); Potassium 3.5 mmol/L (3.3-5.1); Sodium 132 mmol/L (135-145)
[2024-04-22] MEDS: Bumetanide 25 MG in Container,Empty 0 ML IVCONT (10:51)
--- NOTE | 2024-04-22 11:23 | PM.PNCARD ---
Subjective Subjective Date of Service: 04/22/24 Principal diagnosis: Decompensated congestive heart failure Interval history: Patient says that he feels better. Abdominal distention is better he says he diuresed overnight very well although this morning his diuresis tapered off. His creatinine has improved slightly. Review of Systems Constitutional: Reports fatigue Cardiovascular: Reports Abdominal Distension, Reports leg edema and Reports dyspnea on exertion Respiratory: Reports dyspnea on exertion Gastrointestinal: Reports no additional gastrointestinal complaints Endocrine: Reports fatigue Physical Exam Vital Signs: Last Vital Signs Temp 97.9 F 04/22/24 07:22 Pulse 61 04/22/24 11:08 Resp 20 04/22/24 07:22 BP 108/54 L 04/22/24 11:08 Pulse Ox 96 04/22/24 11:08 O2 Del Method CPAP 04/22/24 07:22 O2 Flow Rate 2 04/19/24 07:42 BMI result Body Mass Index 33.0 Const General: cooperative, comfortable, alert, awake and tired appearing Nutritional Appearance: obese Orientation/consciousness: patient oriented x3 Neck Neck: Yes trachea midline, Yes supple and Yes JVD Resp Effort & Inspection: decreased respiratory effort Auscultation: no rales, no wheezes and diminished lung sounds Cardio Jugular venous distension: JVD Rate: regular rate Rhythm: regular rhythm Heart sounds: S1 normal heart sound present, S2 normal heart sound present, no click, no gallops and Murmur heart sound present GI Inspection: Yes distended Auscultation: normal bowel sounds Skin General skin exam: no rashes or lesions noted Neuro General: patient oriented x3 and no focal motor deficits Extrem General: No clubbing, No cyanosis and Yes edema (Improved) Objective Labs and Meds 04/20/24 08:32 04/22/24 09:53 Lab results: Laboratory Results - last 24 hr 04/18/24 04/22/24 04/22/24 07:34 07:18 09:53 Sodium 132 L Potassium 3.5 D Chloride 92 L Carbon Dioxide 23 Anion Gap 21 H BUN 79 H Creatinine 2.84 H Estim Creat Clear Calc 20.3 Estimated GFR 22 Random Glucose 103 Calcium 9.3 Mitochondrial AB Titer TNP Random Cortisol 13.1 Anti-Mitochondrial Ab NEGATIVE Progress Note: A&P Assessment and plan (1) Acute on chronic diastolic (congestive) heart failure: Status: Acute Assessment and Plan: Patient with advanced and resistant heart failure syndrome. Diuresing better with addition of metolazone on Bumex drip. Downtrending creatinine in his heartening. Will continue monitor renal function closely. Continue diuresis use metolazone today. Replace potassium as need be. Given that his renal function has shown some improvement I would hold off on ultra filtration therapy at this point time. Overall resistant to diuretic therapy. Consider transfusion to maintain hematocrit over 30. Consider iron replacement therapy also. Strict intake and output chart needs to be pursued. If plan paracentesis would consider treatment with albumin. Continue other supportive care. Overall prognosis is guarded. Will continue to follow. Time Spent With Patient Time: Total time managing care of this patient today ____ minutes. Progress Note: Quality Stroke Does the patient have a stroke diagnosis?: No Procedures Date of Service Date of Service: 04/22/24
[2024-04-22] MEDS: metOLazone 5 MG TABLET PO (12:25)
[2024-04-22] MEDS: cefTRIAXone sodium 1 GM VIAL IVPUSH (14:16)
[2024-04-22] MEDS: Rivaroxaban 15 MG TABLET PO (17:37)
[2024-04-22] MEDS: Amiodarone HCL 200 MG TABLET PO (17:37)
[2024-04-22] MEDS: Gabapentin 600 MG TABLET PO (20:28)
[2024-04-22] MEDS: Atorvastatin Calcium 40 MG TABLET PO (20:29)
[2024-04-23 00:03] VITALS: PULSE 63; RESP 18; O2SAT 97
[2024-04-23] MEDS: 0.9 % Sodium Chloride Flush 3 ML SYRINGE IVFLUSH ×4 (00:05→22:12)
[2024-04-23 03:19] VITALS: BP 104/51; PULSE 60; RESP 18; TEMP 36.9; O2SAT 100
[2024-04-23 05:29] VITALS: BMI 36.6
[2024-04-23] MEDS: Pantoprazole Sodium 20 MG TABLET.DR 40 MG PO (05:34)
[2024-04-23] MEDS: Levothyroxine Sodium 88 MCG TABLET PO (05:34)
[2024-04-23] MEDS: Ferrous Sulfate 324 MG TABLET.DR PO (05:34)
[2024-04-23 06:32] LABS: Anion Gap 18 (12-20); Blood Urea Nitrogen 77 mg/dL (9-16); Calcium 8.8 mg/dL (8.4-10.2); Carbon Dioxide 28 mmol/L (22-29); Chloride 89 mmol/L (96-108); Creatinine Clr Calc Pharmacy 20.8; Estimated Glomerular Filt Rate 21; Glucose Fasting 121 mg/dL (60-99); Magnesium 3.1 mg/dL (1.6-2.6); Potassium 2.2 mmol/L (3.3-5.1); Sodium 133 mmol/L (135-145)
[2024-04-23 06:43] LABS: Hematocrit 25.1 % (42.0-52.0); Hemoglobin 8.3 g/dl (14.0-18.0); Mean Corpuscular HGB Conc 33.1 g/dl (31.0-36.0); Mean Corpuscular Hemoglobin 28.3 pg (27.0-33.0); Mean Corpuscular Volume 85.7 fL (80.0-98.0); Mean Platelet Volume 9.6 fL (9.4-12.4); Platelet Count 243 X10*3/uL (160-400); Red Blood Count 2.93 X10*6/uL (4.60-5.80); Red Cell Distribution Width 22.9 % (11.0-16.0)
[2024-04-23] MEDS: Potassium Chloride/H20 10 MEQ/100 ML PIGGYBACK 100 MEQ IV ×4 (06:43→11:47)
[2024-04-23] MEDS: Potassium Chloride Packet 20 MEQ PACKET 40 MEQ PO ×2 (06:43→08:19)
[2024-04-23 07:21] VITALS: BP 98/54; PULSE 60; RESP 16; TEMP 37.1; O2SAT 92
[2024-04-23] MEDS: Finasteride 5 MG TABLET PO (08:18)
[2024-04-23] MEDS: allopurinoL 100 MG TABLET PO (08:19)
[2024-04-23] MEDS: Loratadine 10 MG TABLET PO (08:19)
[2024-04-23] MEDS: Magnesium Oxide 400 MG TABLET 800 MG PO (08:19)
--- NOTE | 2024-04-23 09:23 | P.PNNP_ITS ---
Subjective Subjective Date of Service: 04/23/24 Principal diagnosis: Decompensated congestive heart failure Interval history: 83 y/o male with medical history of cardiac arrest (03/2023), biventricular ICD in place, HFrEF, CKD3, paroxysmal afib on xarelto, CAD, PVD, asthma, GERD, gout, KEVIN on CPAP. ED on 04/12 with dyspnea, weight gain, pedal edema for past few weeks. Referred to nephrology for LIBRA on CKD3 in setting of CHF exacerbation. GFR in 20s creatinine generally in 2's, has been trending up with continued diuresis 04/16/24 2.00 04/18/24 2.51 04/19/24 2.92 04/20/24 3.05 04/21/24 3.26 04/22/24 2.84 04/23/24 2.92 Urine bland 03/03/24 Renal US 02/11/[address] abd/pelvis kidneys and ureters unremarkable. patient has had mild hyponatremia since 02/24/24 potassium 2.2 11/8 a.m., being replaced with IV and oral KCl has worsening chronic normocytic anemia (since at least September 2023, he is on iron supplementation) Patient states his breathing is ok, reports he feels his ongoing wet cough is improving states he is urinating regularly/comfortably- UOP 2700mL last 24hr he denies other concerns/symptoms patient's abdomen is moderately distended and firm, he denies pain (plan for paracentesis today) Physical Exam 2 Vital Signs: Vital Signs: Last Vital Signs Temp 98.8 F 04/23/24 07:21 Pulse 60 04/23/24 07:21 Resp 16 04/23/24 07:21 BP 98/54 L 04/23/24 07:21 Pulse Ox 92 04/23/24 07:21 O2 Del Method CPAP 04/23/24 07:21 O2 Flow Rate 2 04/19/24 07:42 BMI result Body Mass Index 36.6 Const: General: cooperative, comfortable, alert, awake and tired appearing Nutritional Appearance: obese Orientation/consciousness: patient oriented x3 Neck: Neck: Yes trachea midline, Yes supple and Yes JVD Resp: Effort & Inspection: decreased respiratory effort Auscultation: no rales, no wheezes and diminished lung sounds Cardio: Jugular venous distension: JVD Rate: regular rate Rhythm: r egular rhythm Heart sounds: S1 normal heart sound present, S2 normal heart sound present, no click, no gallops and Murmur heart sound present GI: Inspection: Yes distended Auscultation: normal bowel sounds Skin: General skin exam: no rashes or lesions noted Neuro: General: patient oriented x3 and no focal motor deficits Extrem: General: No edema Objective Data Labs 04/23/24 05:54 04/23/24 05:54 Labs: Laboratory Results - last 24 hr 04/18/24 04/22/24 04/23/24 07:34 09:53 05:54 WBC 9.0 RBC 2.93 L Hgb 8.3 L Hct 25.1 L MCV 85.7 MCH 28.3 MCHC 33.1 RDW 22.9 H Plt Count 243 D MPV 9.6 Absolute Nucleated RBC 0.000 Nucleated RBC % (auto) 0.0 Sodium 132 L 133 L Potassium 3.5 D 2.2 L* D Chloride 92 L 89 L Carbon Dioxide 23 28 Anion Gap 21 H 18 BUN 79 H 77 H Creatinine 2.84 H 2.92 H Estim Creat Clear Calc 20.3 20.8 Estimated GFR 22 21 Random Glucose 103 Fasting Glucose 121 H Calcium 9.3 8.8 Magnesium 3.1 H Mitochondrial AB Titer TNP Microbiology Microbiology Results: Microbiology 04/17/24 08:58 Sputum - Expectorated Gram Stain - Final 04/17/24 08:58 Sputum - Expectorated Sputum Culture - Final Achromobacter species 04/16/24 11:50 Abdominal Fluid Gram Stain - Final 04/16/24 11:50 Abdominal Fluid Routine Culture - Final No growth after 2 days 04/16/24 11:50 Abdominal Fluid Anaerobic Culture - Final NO GROWTH AFTER 5 DAYS Procedures Date of Service Date of Service: 04/23/24 Assessment & Plan Assessment and plan (1) LIBRA (acute kidney injury): Status: Acute (2) CKD (chronic kidney disease): Status: Acute (3) Acute on chronic diastolic (congestive) heart failure: Status: Acute (4) Hyponatremia: Status: Acute Plan LIBRA on CKD likely hypoperfusion in setting of heart failure exacerbation creatinine returned to baseline CKD, then had uptrend in setting of diuresis with serum sodium <20. Clinically remains fluid overloaded, recommend continuing diuresis, may come with rise in creatinine which we will accept; his creatinine has improved and is closer to baseline with more aggressive diuresis so recommend continuing current regimen. hyperkalemia secondary to diuresis with loop diuretic- recommend continue to monitor closely and replace potassium as needed recommend 1x 25gm albumin infusion prior to paracentesis when needed recommend daily electrolyte and renal function studies, replace potassium as needed no indication for renal replacement at this time continue supportive care Will continue to follow Discussed with Dr Wren Time Spent With Patient Time: Total time managing care of this patient today ____ minutes. Progress Note: Quality Stroke Does the patient have a stroke diagnosis?: No
--- NOTE | 2024-04-23 10:10 | PM.PNCARD ---
Subjective Subjective Date of Service: 04/23/24 Principal diagnosis: Decompensated congestive heart failure Interval history: He has diuresed well overnight with-1800 cc. Significant hypokalemia noted this morning. He otherwise feels better. His abdominal distention is improved although still present. Leg edema is improved. His breathing is improved. No lightheadedness, syncope. Review of Systems Constitutional: Reports fatigue and Reports lethargy Cardiovascular: Reports Abdominal Distension, Denies chest pain, Denies lightheadedness, Denies Loss of Consciousness and Reports dyspnea on exertion Respiratory: Reports dyspnea on exertion Endocrine: Reports fatigue Physical Exam Vital Signs: Last Vital Signs Temp 98.8 F 04/23/24 07:21 Pulse 60 04/23/24 07:21 Resp 16 04/23/24 07:21 BP 98/54 L 04/23/24 07:21 Pulse Ox 92 04/23/24 07:21 O2 Del Method CPAP 04/23/24 07:21 O2 Flow Rate 2 04/19/24 07:42 BMI result Body Mass Index 36.6 Const General: cooperative, comfortable, alert, awake and tired appearing Nutritional Appearance: obese Orientation/consciousness: patient oriented x3 Neck Neck: Yes trachea midline, Yes supple and Yes JVD Resp Effort & Inspection: decreased respiratory effort Auscultation: no rales, no wheezes and diminished lung sounds Cardio Jugular venous distension: JVD Rate: regular rate Rhythm: regular rhythm Heart sounds: S1 normal heart sound present, S2 normal heart sound present, no click, no gallops and Murmur heart sound present GI Inspection: Yes distended Auscultation: normal bowel sounds Skin General skin exam: no rashes or lesions noted Neuro General: patient oriented x3 and no focal motor deficits Extrem General: No clubbing, No cyanosis and Yes edema (Improved) Objective Labs and Meds 04/23/24 05:54 04/23/24 05:54 Lab results: Laboratory Results - last 24 hr 04/18/24 04/22/24 04/23/24 07:34 09:53 05:54 WBC 9.0 RBC 2.93 L Hgb 8.3 L Hct 25.1 L MCV 85.7 MCH 28.3 MCHC 33.1 RDW 22.9 H Plt Count 243 D MPV 9.6 Absolute Nucleated RBC 0.000 Nucleated RBC % (auto) 0.0 Sodium 132 L 133 L Potassium 3.5 D 2.2 L* D Chloride 92 L 89 L Carbon Dioxide 23 28 Anion Gap 21 H 18 BUN 79 H 77 H Creatinine 2.84 H 2.92 H Estim Creat Clear Calc 20.3 20.8 Estimated GFR 22 21 Random Glucose 103 Fasting Glucose 121 H Calcium 9.3 8.8 Magnesium 3.1 H Mitochondrial AB Titer TNP Progress Note: A&P Assessment and plan (1) Acute on chronic diastolic (congestive) heart failure: Status: Acute Assessment and Plan: Advanced diuretic resistant heart failure with comorbidities of advanced age, frailty, anemia, advancing kidney disease, paroxysmal atrial fibrillation, RV dysfunction. He is now responding well. Continue Bumex drip for today. Hold off on metolazone today. Continue monitor potassium and aggressively replace it to maintain potassium about 4. He is planned to undergo paracentesis today which is acceptable would be careful and give albumin to reduce risk of renal hypoperfusion and worsening renal function. Continue ambulate as tolerated. Continue other medications. Continue supportive care. Overall prognosis guarded. Will follow with you Time Spent With Patient Time: Total time managing care of this patient today ____ minutes. Progress Note: Quality Stroke Does the patient have a stroke diagnosis?: No Procedures Date of Service Date of Service: 04/23/24
[2024-04-23] MEDS: Bumetanide 25 MG in Container,Empty 0 ML IVCONT (10:41)
--- NOTE | 2024-04-23 10:43 | P.PNIM_ITS ---
Subjective Subjective Date of Service: 04/23/24 Interval History: abd distension Physical Exam 2 Vital Signs: Vital Signs: Last Vital Signs Temp 98.8 F 04/23/24 07:21 Pulse 60 04/23/24 07:21 Resp 16 04/23/24 07:21 BP 98/54 L 04/23/24 07:21 Pulse Ox 92 04/23/24 07:21 O2 Del Method CPAP 04/23/24 07:21 O2 Flow Rate 2 04/19/24 07:42 BMI result Body Mass Index 36.6 Const: General: cooperative, comfortable, alert, awake and tired appearing Nutritional Appearance: obese Orientation/consciousness: patient oriented x3 Neck: Neck: Yes trachea midline, Yes supple and Yes JVD Resp: Effort & Inspection: decreased respiratory effort Auscultation: no rales, no wheezes and diminished lung sounds Cardio: Jugular venous distension: JVD Rate: regular rate Rhythm: r egular rhythm Heart sounds: S1 normal heart sound present, S2 normal heart sound present, no click, no gallops and Murmur heart sound present GI: Inspection: Yes distended Auscultation: normal bowel sounds Skin: General skin exam: no rashes or lesions noted Neuro: General: patient oriented x3 and no focal motor deficits Extrem: General: No clubbing, No cyanosis and Yes edema (Improved) Objective Data Active Medications Acetaminophen (Acetaminophen 325 Mg Tablet) 650 mg PO Q6H PRN PRN Reason: Pain, Mild (Pain Scale 1-3), fever or headache Last Admin: 04/18/24 08:56 Dose: 650 mg Documented By: JOAQUIM Allopurinol (Allopurinol 100 Mg Tablet) 100 mg PO DAILY@0900 [facility] Last Admin: 04/23/24 08:19 Dose: 100 mg Documented By: SANJAY Amiodarone HCl (Amiodarone Hcl 200 Mg Tablet) 200 mg PO DAILY@1700 [facility] Last Admin: 04/22/24 17:37 Dose: 200 mg Documented By: SANJAY Atorvastatin Calcium (Atorvastatin Calcium 40 Mg Tablet) 40 mg PO BEDTIME [facility] Last Admin: 04/22/24 20:29 Dose: 40 mg Documented By: LEDA Benzonatate (Benzonatate 100 Mg Capsule) 100 mg PO TID PRN PRN Reason: Cough Last Admin: 04/18/24 20:48 Dose: 100 mg Documented By: DIANA Calcium Carbonate (Calcium Carbonate 750 Mg Tab.Chew) 750 mg PO Q4H PRN PRN Reason: Heartburn Ceftriaxone Sodium (Ceftriaxone Sodium 1 Gm Vial) 1 gm IVPUSH Q24H [facility] Last Admin: 04/22/24 14:16 Dose: 1 gm Documented By: SANJAY Cilostazol (Cilostazol 50 Mg Tablet) 50 mg PO BID [facility] Last Admin: 04/18/24 08:56 Dose: 50 mg Documented By: JOAQUIM Ferrous Sulfate (Ferrous Sulfate 324 Mg Tablet.Dr) 324 mg PO DAILY@0600 [facility] Last Admin: 04/23/24 05:34 Dose: 324 mg Documented By: LEDA Finasteride (Finasteride 5 Mg Tablet) 5 mg PO DAILY@0900 [facility] Last Admin: 04/23/24 08:18 Dose: 5 mg Documented By: SANJAY Gabapentin (Gabapentin 600 Mg Tablet) 600 mg PO BEDTIME [facility] Last Admin: 04/22/24 20:28 Dose: 600 mg Documented By: LEDA Guaifenesin (Guaifenesin 200 Mg/10 Ml 10 Ml Liquid) 10 ml PO Q4H PRN PRN Reason: Cough Last Admin: 04/21/24 21:11 Dose: 10 ml Documented By: ERMA Bumetanide 25 mg/ IV (Miscellaneous Supplies) 100 mls @ 2 mls/hr IVCONT .Q24H [facility] Last Admin: 04/22/24 10:51 Dose: 0.5 mg/hr, 2 mls/hr Documented By: JASON Levothyroxine Sodium (Levothyroxine Sodium 88 Mcg Tablet) 88 mcg PO DAILY@0600 [facility] Last Admin: 04/23/24 05:34 Dose: 88 mcg Documented By: LEDA Loratadine (Loratadine 10 Mg Tablet) 10 mg PO DAILY [facility] Last Admin: 04/23/24 08:19 Dose: 10 mg Documented By: SANJAY Magnesium Hydroxide (Milk Of Magnesia 30 Ml Oral.Susp) 30 ml PO DAILY PRN PRN Reason: Constipation Magnesium Oxide (Magnesium Oxide 400 Mg Tablet) 800 mg PO BID [facility] Last Admin: 04/23/24 08:19 Dose: 800 mg Documented By: SANJAY Melatonin (Melatonin 3 Mg Tablet) 6 mg PO BEDTIME PRN PRN Reason: Insomnia Ondansetron HCl (Ondansetron Hcl 4 Mg/2 Ml Vial) 4 mg IVPUSH Q6H PRN PRN Reason: Nausea and Vomiting Last Admin: 04/21/24 04:58 Dose: 4 mg Documented By: ERMA Pantoprazole Sodium (Pantoprazole Sodium 20 Mg Tablet.) 40 mg PO DAILY@0630 [facility] Last Admin: 04/23/24 05:34 Dose: 40 mg Documented By: LEDA Rivaroxaban (Rivaroxaban 15 Mg Tablet) 15 mg PO DAILY@1700 [facility] Last Admin: 04/22/24 17:37 Dose: 15 mg Documented By: SANJAY Sodium Chloride (0.9 % Sodium Chloride Flush 3 Ml Syringe) 3 ml IVFLUSH QSHIFT [facility] Last Admin: 04/23/24 08:19 Dose: 3 ml Documented By: SANJAY Labs 04/23/24 05:54 04/23/24 05:54 Labs: Laboratory Results - last 24 hr 04/23/24 05:54 MCV 85.7 MCH 28.3 MCHC 33.1 RDW 22.9 H Plt Count 243 D MPV 9.6 Absolute Nucleated RBC 0.000 Nucleated RBC % (auto) 0.0 Anion Gap 18 Estim Creat Clear Calc 20.8 Estimated GFR 21 Fasting Glucose 121 H Calcium 8.8 Magnesium 3.1 H Microbiology Microbiology Results: Microbiology 04/17/24 08:58 Gram Stain - Final Sputum - Expectorated Sputum Culture - Final Achromobacter species Assessment and Plan (1) Acute on chronic diastolic (congestive) heart failure: Status: Acute Plan 83M PMH chf with recovered EF, cardiac arrest s/p AICD, ckd III, pafib, cad, pvd, hld, bph, kae presented with sob Acute on chronic CHF with recovered ejection fraction and right-sided heart failure complicated by ascites Continue Bumex infusion, hold off on metalozone today, Cardiology following, monitor electrolytes Status post 3 L paracentesis 04/21/2024 with albumin given, plan for additional paracentesis today - nephro recommending up to 5L provided albumin given prior Limited echo with significant right-sided dysfunction acute hypokalemia replace and monitor LIBRA and CKD 3 Likely cardiorenal, monitor closely while diuresing, nephro following Elevated LFTs due to right-sided heart failure Coronary disease Continue Xarelto and atorvastatin Paroxysmal atrial fibrillation continue amiodarone and Xarelto DVT prophylaxis on Xarelto DNR/DNI reason for continued hospitalization: Ongoing IV diuresis, severe low k Quality Stroke Does the patient have a stroke diagnosis?: No VTE Prior VTE?: No VTE Risk Level:: Medical - moderate - high VTE Device Contraindication: Treatment Not Indicated VTE Drug Contraindication: N/A - Med Ordered
--- NOTE | 2024-04-23 11:42 | MHC.CM.PN ---
EMR REVIEWED, PT REMAINS ON BUMEX DRIP, ANTIC PT WILL REMAIN INPT THROUGH [facility], DANIEL'Armin ALEJANDRA UPDATED, CM WILL CONT TO FOLLOW DC NEEDS.
[2024-04-23 12:26] VITALS: BP 92/43; PULSE 62; RESP 18; TEMP 36.8; O2SAT 99
[2024-04-23] MEDS: Lidocaine HCl 1 % MPF 5 ML VIAL SUBCUT (12:58)
[2024-04-23] MEDS: Albumin Human 25 % 100 ML IV (13:17)
[2024-04-23] MEDS: cefTRIAXone sodium 1 GM VIAL IVPUSH (14:27)
[2024-04-23 16:00] VITALS: BP 105/45; PULSE 60; RESP 17; TEMP 36.2; O2SAT 100
[2024-04-23] MEDS: Amiodarone HCL 200 MG TABLET PO (16:41)
[2024-04-23 19:52] VITALS: BP 107/63; PULSE 150; RESP 16; TEMP 36.6; O2SAT 96
[2024-04-23] MEDS: Gabapentin 600 MG TABLET PO (22:11)
[2024-04-23] MEDS: Atorvastatin Calcium 40 MG TABLET PO (22:11)
[2024-04-24] VITALS (7 sets, daily range): BP systolic 92–110; BP diastolic 51–58; PULSE 51–72; RESP 16–20; TEMP 36.4–37.6; O2SAT 92–100; BMI 31.4
[2024-04-24] MEDS: Levothyroxine Sodium 88 MCG TABLET PO (05:35)
[2024-04-24] MEDS: Pantoprazole Sodium 20 MG TABLET.DR 40 MG PO (05:35)
[2024-04-24] MEDS: Ferrous Sulfate 324 MG TABLET.DR PO (05:35)
[2024-04-24 07:09] LABS: Hematocrit 24.5 % (42.0-52.0); Hemoglobin 8.2 g/dl (14.0-18.0); Mean Corpuscular HGB Conc 33.5 g/dl (31.0-36.0); Mean Corpuscular Hemoglobin 28.7 pg (27.0-33.0); Mean Corpuscular Volume 85.7 fL (80.0-98.0); Mean Platelet Volume 9.8 fL (9.4-12.4); Platelet Count 235 X10*3/uL (160-400); Red Blood Count 2.86 X10*6/uL (4.60-5.80); Red Cell Distribution Width 22.8 % (11.0-16.0); White Blood Count 9.9 X10*3/uL (4.8-10.8)
[2024-04-24 07:32] LABS: Anion Gap 17 (12-20); Blood Urea Nitrogen 73 mg/dL (9-16); Calcium 8.3 mg/dL (8.4-10.2); Carbon Dioxide 29 mmol/L (22-29); Chloride 87 mmol/L (96-108); Creatinine Clr Calc Pharmacy 21.2; Estimated Glomerular Filt Rate 23; Glucose Fasting 135 mg/dL (60-99); Potassium 2.5 mmol/L (3.3-5.1); Sodium 130 mmol/L (135-145)
[2024-04-24] MEDS: Loratadine 10 MG TABLET PO (07:52)
[2024-04-24] MEDS: Finasteride 5 MG TABLET PO (07:52)
[2024-04-24] MEDS: 0.9 % Sodium Chloride Flush 3 ML SYRINGE IVFLUSH ×2 (07:53→14:26)
[2024-04-24] MEDS: allopurinoL 100 MG TABLET PO (07:53)
[2024-04-24] MEDS: Potassium Chloride ER 20 MEQ TAB.ER.PRT 40 MEQ PO ×2 (07:56→16:50)
[2024-04-24] MEDS: Potassium Chloride/H20 10 MEQ/100 ML PIGGYBACK 100 MEQ IV ×4 (07:57→12:31)
--- NOTE | 2024-04-24 09:23 | PM.PNCARD ---
Subjective Subjective Date of Service: 04/24/24 Principal diagnosis: Decompensated congestive heart failure Interval history: Patient feeling better. Took out 4.5 L yesterday with paracentesis. Diuresed well as well. Potassium still remains low despite replacement. Kidney function is gradually improving. Hemodynamically stable. No arrhythmias noted Review of Systems Constitutional: Reports fatigue and Reports weakness Reports epistaxis Cardiovascular: Reports Abdominal Distension, Denies chest pain, Denies leg edema, Denies palpitations and Reports dyspnea on exertion Respiratory: Reports cough, Reports excessive phlegm production and Reports dyspnea on exertion Reports weakness Endocrine: Reports fatigue and Denies palpitations Physical Exam Vital Signs: Last Vital Signs Temp 98.5 F 04/24/24 07:57 Pulse 60 04/24/24 07:57 Resp 16 04/24/24 07:57 BP 106/56 L 04/24/24 07:57 Pulse Ox 100 04/24/24 07:57 O2 Del Method Room Air 04/24/24 07:57 O2 Flow Rate 2 04/19/24 07:42 BMI result Body Mass Index 31.4 Const General: cooperative, comfortable, alert, awake and tired appearing Nutritional Appearance: obese Orientation/consciousness: patient oriented x3 Neck Neck: Yes trachea midline, Yes supple and Yes JVD Resp Effort & Inspection: decreased respiratory effort Auscultation: no rales, no wheezes and diminished lung sounds Cardio Jugular venous distension: JVD Rate: regular rate Rhythm: regular rhythm Heart sounds: S1 normal heart sound present, S2 normal heart sound present, no click, no gallops and Murmur heart sound present GI Inspection: Yes distended Auscultation: normal bowel sounds Skin General skin exam: no rashes or lesions noted Neuro General: patient oriented x3 and no focal motor deficits Extrem General: No clubbing, No cyanosis and Yes edema (Improved) Objective Labs and Meds 04/24/24 06:51 04/24/24 06:51 Lab results: Laboratory Results - last 24 hr 04/24/24 06:51 WBC 9.9 RBC 2.86 L Hgb 8.2 L Hct 24.5 L MCV 85.7 MCH 28.7 MCHC 33.5 RDW 22.8 H Plt Count 235 MPV 9.8 Absolute Nucleated RBC 0.000 Nucleated RBC % (auto) 0.0 Sodium 130 L Potassium 2.5 L* Chloride 87 L Carbon Dioxide 29 Anion Gap 17 BUN 73 H Creatinine 2.65 H Estim Creat Clear Calc 21.2 Estimated GFR 23 Fasting Glucose 135 H Calcium 8.3 L Magnesium 3.0 H Imaging Radiologist's impression: Impressions Paracentesis Ultrasound 04/16/24 11:00 IMPRESSION: Ultrasound-guided paracentesis as described above. No immediate complications Electronically signed by: Wily Briscoe MD 04/23/2024 11:19 AM EST RP Paracentesis Ultrasound 04/23/24 12:07 IMPRESSION: Ultrasound-guided paracentesis as described above. No immediate complications Electronically signed by: Wily Briscoe MD 04/23/2024 04:36 PM EST RP Progress Note: A&P Assessment and plan (1) Acute on chronic diastolic (congestive) heart failure: Status: Acute Assessment and Plan: Decompensated congestive heart failure gradually improving. Multiple comorbidities was discussed in the past. Continue supportive care. Out of bed to chair. Continue pulmonary support. Incentive spirometry should be provided. Would continue diuresis and will give metolazone 2.5 mg today. Replace potassium aggressively. Strict intake and output chart needs to be pursued. Continue monitor BNP and BNP tomorrow. Out of bed to chair. Atrial fibrillation remains in AV synchrony with paced rhythm. Continue to hold Eliquis for now given his recurrent epistaxis. Will follow with you Time Spent With Patient Time: Total time managing care of this patient today ____ minutes. Progress Note: Quality Stroke Does the patient have a stroke diagnosis?: No Procedures Date of Service Date of Service: 04/24/24
[2024-04-24] MEDS: Bumetanide 25 MG in Container,Empty 0 ML IVCONT (11:00)
[2024-04-24] MEDS: metOLazone 2.5 MG TABLET PO (11:00)
--- NOTE | 2024-04-24 11:02 | P.PNIM_ITS ---
Subjective Subjective Date of Service: 04/24/24 Interval History: Improved abdominal distention Physical Exam 2 Vital Signs: Vital Signs: Last Vital Signs Temp 98.5 F 04/24/24 07:57 Pulse 60 04/24/24 07:57 Resp 16 04/24/24 07:57 BP 106/56 L 04/24/24 07:57 Pulse Ox 100 04/24/24 07:57 O2 Del Method Room Air 04/24/24 07:57 O2 Flow Rate 2 04/19/24 07:42 BMI result Body Mass Index 31.4 Const: General: cooperative, comfortable, alert, awake and tired appearing Nutritional Appearance: obese Orientation/consciousness: patient oriented x3 Neck: Neck: Yes trachea midline, Yes supple and Yes JVD Resp: Effort & Inspection: decreased respiratory effort Auscultation: no rales, no wheezes and diminished lung sounds Cardio: Jugular venous distension: JVD Rate: regular rate Rhythm: r egular rhythm Heart sounds: S1 normal heart sound present, S2 normal heart sound present, no click, no gallops and Murmur heart sound present GI: Inspection: Yes distended Auscultation: normal bowel sounds Skin: General skin exam: no rashes or lesions noted Neuro: General: patient oriented x3 and no focal motor deficits Extrem: General: No clubbing, No cyanosis and Yes edema (Improved) Objective Data Active Medications Acetaminophen (Acetaminophen 325 Mg Tablet) 650 mg PO Q6H PRN PRN Reason: Pain, Mild (Pain Scale 1-3), fever or headache Last Admin: 04/18/24 08:56 Dose: 650 mg Documented By: JOAQUIM Allopurinol (Allopurinol 100 Mg Tablet) 100 mg PO DAILY@0900 [facility] Last Admin: 04/24/24 07:53 Dose: 100 mg Documented By: LUIS Amiodarone HCl (Amiodarone Hcl 200 Mg Tablet) 200 mg PO DAILY@1700 [facility] Last Admin: 04/23/24 16:41 Dose: 200 mg Documented By: SANJAY Atorvastatin Calcium (Atorvastatin Calcium 40 Mg Tablet) 40 mg PO BEDTIME [facility] Last Admin: 04/23/24 22:11 Dose: 40 mg Documented By: GLYNN Benzonatate (Benzonatate 100 Mg Capsule) 100 mg PO TID PRN PRN Reason: Cough Last Admin: 04/18/24 20:48 Dose: 100 mg Documented By: DIANA Calcium Carbonate (Calcium Carbonate 750 Mg Tab.Chew) 750 mg PO Q4H PRN PRN Reason: Heartburn Ceftriaxone Sodium (Ceftriaxone Sodium 1 Gm Vial) 1 gm IVPUSH Q24H [facility] Last Admin: 04/23/24 14:27 Dose: 1 gm Documented By: SANJAY Cilostazol (Cilostazol 50 Mg Tablet) 50 mg PO BID [facility] Last Admin: 04/18/24 08:56 Dose: 50 mg Documented By: JOAQUIM Ferrous Sulfate (Ferrous Sulfate 324 Mg Tablet.) 324 mg PO DAILY@0600 [facility] Last Admin: 04/24/24 05:35 Dose: 324 mg Documented By: KEMI Finasteride (Finasteride 5 Mg Tablet) 5 mg PO DAILY@0900 [facility] Last Admin: 04/24/24 07:52 Dose: 5 mg Documented By: LUIS Gabapentin (Gabapentin 600 Mg Tablet) 600 mg PO BEDTIME [facility] Last Admin: 04/23/24 22:11 Dose: 600 mg Documented By: GLYNN Guaifenesin (Guaifenesin 200 Mg/10 Ml 10 Ml Liquid) 10 ml PO Q4H PRN PRN Reason: Cough Last Admin: 04/21/24 21:11 Dose: 10 ml Documented By: ERMA Bumetanide 25 mg/ IV (Miscellaneous Supplies) 100 mls @ 2 mls/hr IVCONT .Q24H [facility] Last Admin: 04/23/24 10:41 Dose: 0.5 mg/hr, 2 mls/hr Documented By: SANJAY Potassium Chloride (Potassium Chloride/H20) 10 meq in 100 mls @ 100 mls/hr IV Q1H [facility] Stop: 04/24/24 11:44 Last Admin: 04/24/24 09:29 Dose: 100 mls/hr Documented By: LUIS Levothyroxine Sodium (Levothyroxine Sodium 88 Mcg Tablet) 88 mcg PO DAILY@0600 [facility] Last Admin: 04/24/24 05:35 Dose: 88 mcg Documented By: KEMI Loratadine (Loratadine 10 Mg Tablet) 10 mg PO DAILY [facility] Last Admin: 04/24/24 07:52 Dose: 10 mg Documented By: LUIS Magnesium Hydroxide (Milk Of Magnesia 30 Ml Oral.Susp) 30 ml PO DAILY PRN PRN Reason: Constipation Magnesium Oxide (Magnesium Oxide 400 Mg Tablet) 800 mg PO BID [facility] Last Admin: 04/24/24 08:34 Dose: Not Given Documented By: LUIS Non-Admin Reason: Physician Approved Melatonin (Melatonin 3 Mg Tablet) 6 mg PO BEDTIME PRN PRN Reason: Insomnia Ondansetron HCl (Ondansetron Hcl 4 Mg/2 Ml Vial) 4 mg IVPUSH Q6H PRN PRN Reason: Nausea and Vomiting Last Admin: 04/21/24 04:58 Dose: 4 mg Documented By: ERMA Pantoprazole Sodium (Pantoprazole Sodium 20 Mg Tablet.) 40 mg PO DAILY@0630 [facility] Last Admin: 04/24/24 05:35 Dose: 40 mg Documented By: KEMI Rivaroxaban (Rivaroxaban 15 Mg Tablet) 15 mg PO DAILY@1700 [facility] Last Admin: 04/22/24 17:37 Dose: 15 mg Documented By: SANJAY Sodium Chloride (0.9 % Sodium Chloride Flush 3 Ml Syringe) 3 ml IVFLUSH QSHIFT [facility] Last Admin: 04/24/24 07:53 Dose: 3 ml Documented By: LUIS Labs 04/24/24 06:51 04/24/24 06:51 Labs: Laboratory Results - last 24 hr 04/24/24 06:51 MCV 85.7 MCH 28.7 MCHC 33.5 RDW 22.8 H Plt Count 235 MPV 9.8 Absolute Nucleated RBC 0.000 Nucleated RBC % (auto) 0.0 Anion Gap 17 Estim Creat Clear Calc 21.2 Estimated GFR 23 Fasting Glucose 135 H Calcium 8.3 L Magnesium 3.0 H Assessment and Plan (1) Acute on chronic diastolic (congestive) heart failure: Status: Acute Plan 83M PMH chf with recovered EF, cardiac arrest s/p AICD, ckd III, pafib, cad, pvd, hld, bph, kae presented with sob Acute on chronic CHF with recovered ejection fraction and right-sided heart failure complicated by ascites Continue Bumex infusion, 2.5 mg metalozone today, Cardiology following, monitor electrolytes Status post 3 L paracentesis 04/21/2024 with albumin given, additional paracentesis 04/23/24 4.5L with albumin Limited echo with significant right-sided dysfunction acute hypokalemia replace and monitor LIBRA and CKD 3 Likely cardiorenal, monitor closely while diuresing, nephro following Elevated LFTs due to right-sided heart failure Coronary disease Continue Xarelto and atorvastatin Paroxysmal atrial fibrillation continue amiodarone and Xarelto DVT prophylaxis on Xarelto DNR/DNI reason for continued hospitalization: Ongoing IV diuresis, severe low k Quality Stroke Does the patient have a stroke diagnosis?: No VTE Prior VTE?: No VTE Risk Level:: Medical - moderate - high VTE Device Contraindication: Treatment Not Indicated VTE Drug Contraindication: N/A - Med Ordered
[2024-04-24] MEDS: cefTRIAXone sodium 1 GM VIAL IVPUSH (14:26)
--- NOTE | 2024-04-24 15:14 | PC.NURSE ---
0845 dressing on L forearm saturated with blood, wounds cleanded with NaCl and dressed with xeroform, wrapped with gauze 1440 dressing on L forearm again saturated with blood, cleansed and dressed wound as above. pressure applied to wound for 5 min to stop bleeding with no success, MD notified. suggested dressing wound with surgicell, wrap with gauze roll and janis wrap.
[2024-04-24 16:04] LABS: Anion Gap 21 (12-20); Blood Urea Nitrogen 71 mg/dL (9-16); Calcium 8.8 mg/dL (8.4-10.2); Carbon Dioxide 26 mmol/L (22-29); Chloride 88 mmol/L (96-108); Estimated Glomerular Filt Rate 24; Glucose Random 128 mg/dL (60-115); Potassium 3.1 mmol/L (3.3-5.1); Sodium 132 mmol/L (135-145)
[2024-04-24] MEDS: Amiodarone HCL 200 MG TABLET PO (16:14)
[2024-04-24] MEDS: Atorvastatin Calcium 40 MG TABLET PO (20:40)
[2024-04-24] MEDS: Benzonatate 100 MG CAPSULE PO (20:40)
[2024-04-24] MEDS: guaiFENesin 200 MG/10 ML 10 ML LIQUID PO (20:40)
[2024-04-24] MEDS: Gabapentin 600 MG TABLET PO (20:40)
[2024-04-25] VITALS (11 sets, daily range): BP systolic 88–113; BP diastolic 44–55; PULSE 58–72; RESP 16–20; TEMP 36.4–37.4; O2SAT 96–100; BMI 34.2
[2024-04-25] MEDS: Melatonin 3 MG TABLET 6 MG PO (01:33)
[2024-04-25] MEDS: Ferrous Sulfate 324 MG TABLET.DR PO (05:32)
[2024-04-25] MEDS: Levothyroxine Sodium 88 MCG TABLET PO (05:32)
[2024-04-25] MEDS: Pantoprazole Sodium 20 MG TABLET.DR 40 MG PO (05:32)
[2024-04-25 07:40] LABS: Hematocrit 26.1 % (42.0-52.0); Hemoglobin 8.7 g/dl (14.0-18.0); Mean Corpuscular HGB Conc 33.3 g/dl (31.0-36.0); Mean Corpuscular Hemoglobin 28.7 pg (27.0-33.0); Mean Corpuscular Volume 86.1 fL (80.0-98.0); Platelet Count 236 X10*3/uL (160-400); Red Blood Count 3.03 X10*6/uL (4.60-5.80); Red Cell Distribution Width 23.3 % (11.0-16.0)
[2024-04-25 07:51] LABS: Anion Gap 19 (12-20); Blood Urea Nitrogen 74 mg/dL (9-16); Calcium 8.5 mg/dL (8.4-10.2); Carbon Dioxide 28 mmol/L (22-29); Chloride 86 mmol/L (96-108); Creatinine Clr Calc Pharmacy 22.4; Estimated Glomerular Filt Rate 24; Glucose Fasting 135 mg/dL (60-99); Potassium 3.5 mmol/L (3.3-5.1); Sodium 129 mmol/L (135-145)
[2024-04-25] MEDS: Loratadine 10 MG TABLET PO (09:30)
[2024-04-25] MEDS: Finasteride 5 MG TABLET PO (09:30)
[2024-04-25] MEDS: Benzonatate 100 MG CAPSULE PO (09:31)
[2024-04-25] MEDS: Potassium Chloride ER 20 MEQ TAB.ER.PRT 40 MEQ PO (09:31)
[2024-04-25] MEDS: Magnesium Oxide 400 MG TABLET 800 MG PO ×2 (09:32→20:59)
[2024-04-25] MEDS: Bumetanide 25 MG in Container,Empty 0 ML IVCONT (09:32)
[2024-04-25] MEDS: allopurinoL 100 MG TABLET PO (09:32)
--- NOTE | 2024-04-25 10:03 | PM.PNCARD ---
Subjective Subjective Date of Service: 04/25/24 Principal diagnosis: Decompensated congestive heart failure Interval history: Patient complains of increasing abdominal distension again. No significant shortness of breath continues to have cough. Eliquis is on hold and epistaxis his better. Renal function stable. Overnight diuresis seems to have tapered off. Review of Systems Constitutional: Reports weakness Eyes: Reports no additional eye complaints Cardiovascular: Reports Abdominal Distension, Denies rapid heart rate, Denies lightheadedness, Denies Loss of Consciousness, Denies palpitations and Reports dyspnea on exertion Respiratory: Reports dyspnea on exertion Reports weakness Endocrine: Denies palpitations Physical Exam Vital Signs: Last Vital Signs Temp 98.2 F 04/25/24 07:26 Pulse 60 04/25/24 07:26 Resp 16 04/25/24 07:26 BP 96/44 L 04/25/24 07:36 Pulse Ox 96 04/25/24 07:26 O2 Del Method Room Air 04/25/24 07:26 O2 Flow Rate 2 04/19/24 07:42 BMI result Body Mass Index 34.2 Const General: cooperative, comfortable, alert, awake and tired appearing Nutritional Appearance: obese Orientation/consciousness: patient oriented x3 Neck Neck: Yes trachea midline, Yes supple and Yes JVD Resp Effort & Inspection: decreased respiratory effort Auscultation: no rales, no wheezes and diminished lung sounds Cardio Jugular venous distension: JVD Rate: regular rate Rhythm: regular rhythm Heart sounds: S1 normal heart sound present, S2 normal heart sound present, no click, no gallops and Murmur heart sound present GI Inspection: Yes distended Auscultation: normal bowel sounds Skin General skin exam: no rashes or lesions noted Neuro General: patient oriented x3 and no focal motor deficits Extrem General: No clubbing, No cyanosis and Yes edema (Improved) Objective Labs and Meds 04/25/24 07:02 04/25/24 07:02 Lab results: Laboratory Results - last 24 hr 04/24/24 04/25/24 15:43 07:02 WBC 11.0 H RBC 3.03 L Hgb 8.7 L Hct 26.1 L MCV 86.1 MCH 28.7 MCHC 33.3 RDW 23.3 H Plt Count 236 MPV 10.0 Absolute Nucleated RBC 0.000 Nucleated RBC % (auto) 0.0 Sodium 132 L 129 L Potassium 3.1 L D 3.5 Chloride 88 L 86 L Carbon Dioxide 26 28 Anion Gap 21 H 19 BUN 71 H 74 H Creatinine 2.56 H 2.61 H Estim Creat Clear Calc 22.0 22.4 Estimated GFR 24 24 Random Glucose 128 H Fasting Glucose 135 H Calcium 8.8 D 8.5 Progress Note: A&P Assessment and plan (1) Acute on chronic diastolic (congestive) heart failure: Status: Acute Assessment and Plan: Acute on chronic diastolic failure with RV dysfunction most likely cause for his advanced and difficult control right heart failure/heart failure syndrome. At this point time he is quite resistant to diuretic therapy. He is following beyond diuresis having increased abdominal distension. I would suggest a given metolazone 5 mg today and continue Bumex drip. Strict intake and output chart needs to be pursued. Continue to follow-up BNP and BNP. Replace electrolytes as needed. If continues to have abdominal distention may require repeat paracentesis. Follow-up tomorrow. If his diuretics have been caught up many doing well, will switch him to oral torsemide tomorrow 40 mg b.i.d. along with metolazone 5 mg on a daily basis. He will also probably require potassium replacement therapy on the long-term basis. Overall prognosis is guarded. Continue rhythm control approach. Once his epistaxis remains controlled may restart Eliquis therapy. Will follow with you Time Spent With Patient Time: Total time managing care of this patient today ____ minutes. Progress Note: Quality Stroke Does the patient have a stroke diagnosis?: No Procedures Date of Service Date of Service: 04/25/24
--- NOTE | 2024-04-25 10:37 | HO.PM.IMPN ---
Subjective Subjective Date of Service: 04/25/24 Interval History: skin tear bleed improved Physical Exam Vital Signs: Vital Signs: Last Vital Signs Temp 98.2 F 04/25/24 07:26 Pulse 60 04/25/24 07:26 Resp 16 04/25/24 07:26 BP 96/44 L 04/25/24 07:36 Pulse Ox 96 04/25/24 07:26 O2 Del Method Room Air 04/25/24 07:26 O2 Flow Rate 2 04/19/24 07:42 BMI result Body Mass Index 34.2 Const: General: cooperative, comfortable, alert, awake and tired appearing Nutritional Appearance: obese Orientation/consciousness: patient oriented x3 Neck: Neck: Yes trachea midline, Yes supple and Yes JVD Resp: Effort & Inspection: decreased respiratory effort Auscultation: no rales, no wheezes and diminished lung sounds Cardio: Jugular venous distension: JVD Rate: regular rate Rhythm: regular rhythm Heart sounds: S1 normal heart sound present, S2 normal heart sound present, no click, no gallops and Murmur heart sound present GI: Inspection: Yes distended Auscultation: normal bowel sounds Skin: General skin exam: no rashes or lesions noted Neuro: General: patient oriented x3 and no focal motor deficits Extrem: General: No clubbing, No cyanosis and Yes edema (Improved) Objective Data Active Medications Acetaminophen (Acetaminophen 325 Mg Tablet) 650 mg PO Q6H PRN PRN Reason: Pain, Mild (Pain Scale 1-3), fever or headache Last Admin: 04/18/24 08:56 Dose: 650 mg Documented By: JOAQUIM Allopurinol (Allopurinol 100 Mg Tablet) 100 mg PO DAILY@0900 [facility] Last Admin: 04/25/24 09:32 Dose: 100 mg Documented By: LUIS Amiodarone HCl (Amiodarone Hcl 200 Mg Tablet) 200 mg PO DAILY@1700 [facility] Last Admin: 04/24/24 16:14 Dose: 200 mg Documented By: LUIS Atorvastatin Calcium (Atorvastatin Calcium 40 Mg Tablet) 40 mg PO BEDTIME [facility] Last Admin: 04/24/24 20:40 Dose: 40 mg Documented By: LAFLAMC Benzonatate (Benzonatate 100 Mg Capsule) 100 mg PO TID PRN PRN Reason: Cough Last Admin: 04/25/24 09:31 Dose: 100 mg Documented By: LUIS Calcium Carbonate (Calcium Carbonate 750 Mg Tab.Chew) 750 mg PO Q4H PRN PRN Reason: Heartburn Ceftriaxone Sodium (Ceftriaxone Sodium 1 Gm Vial) 1 gm IVPUSH Q24H [facility] Last Admin: 04/24/24 14:26 Dose: 1 gm Documented By: LUIS Cilostazol (Cilostazol 50 Mg Tablet) 50 mg PO BID [facility] Last Admin: 04/18/24 08:56 Dose: 50 mg Documented By: JOAQUIM Ferrous Sulfate (Ferrous Sulfate 324 Mg Tablet.) 324 mg PO DAILY@0600 [facility] Last Admin: 04/25/24 05:32 Dose: 324 mg Documented By: KEMI Finasteride (Finasteride 5 Mg Tablet) 5 mg PO DAILY@0900 [facility] Last Admin: 04/25/24 09:30 Dose: 5 mg Documented By: LUIS Gabapentin (Gabapentin 600 Mg Tablet) 600 mg PO BEDTIME [facility] Last Admin: 04/24/24 20:40 Dose: 600 mg Documented By: KEMI Guaifenesin (Guaifenesin 200 Mg/10 Ml 10 Ml Liquid) 10 ml PO Q4H PRN PRN Reason: Cough Last Admin: 04/24/24 20:40 Dose: 10 ml Documented By: KEMI Bumetanide 25 mg/ IV (Miscellaneous Supplies) 100 mls @ 2 mls/hr IVCONT .Q24H [facility] Last Admin: 04/25/24 09:32 Dose: 0.5 mg/hr, 2 mls/hr Documented By: LUIS Levothyroxine Sodium (Levothyroxine Sodium 88 Mcg Tablet) 88 mcg PO DAILY@0600 [facility] Last Admin: 04/25/24 05:32 Dose: 88 mcg Documented By: KEMI Loratadine (Loratadine 10 Mg Tablet) 10 mg PO DAILY [facility] Last Admin: 04/25/24 09:30 Dose: 10 mg Documented By: LUIS Magnesium Hydroxide (Milk Of Magnesia 30 Ml Oral.Susp) 30 ml PO DAILY PRN PRN Reason: Constipation Magnesium Oxide (Magnesium Oxide 400 Mg Tablet) 800 mg PO BID [facility] Last Admin: 04/25/24 09:32 Dose: 800 mg Documented By: LUIS Melatonin (Melatonin 3 Mg Tablet) 6 mg PO BEDTIME PRN PRN Reason: Insomnia Last Admin: 04/25/24 01:33 Dose: 6 mg Documented By: KEMI Ondansetron HCl (Ondansetron Hcl 4 Mg/2 Ml Vial) 4 mg IVPUSH Q6H PRN PRN Reason: Nausea and Vomiting Last Admin: 04/21/24 04:58 Dose: 4 mg Documented By: ERMA Pantoprazole Sodium (Pantoprazole Sodium 20 Mg Tablet.) 40 mg PO DAILY@0630 [facility] Last Admin: 04/25/24 05:32 Dose: 40 mg Documented By: KEMI Rivaroxaban (Rivaroxaban 15 Mg Tablet) 15 mg PO DAILY@1700 [facility] Last Admin: 04/22/24 17:37 Dose: 15 mg Documented By: SANJAY Sodium Chloride (0.9 % Sodium Chloride Flush 3 Ml Syringe) 3 ml IVFLUSH QSHIFT [facility] Last Admin: 04/25/24 09:24 Dose: Not Given Documented By: LUIS Non-Admin Reason: IV Running Labs 04/25/24 07:02 04/25/24 07:02 Labs: Laboratory Results - last 24 hr 04/24/24 04/25/24 15:43 07:02 MCV 86.1 MCH 28.7 MCHC 33.3 RDW 23.3 H Plt Count 236 MPV 10.0 Absolute Nucleated RBC 0.000 Nucleated RBC % (auto) 0.0 Anion Gap 21 H 19 Estim Creat Clear Calc 22.0 22.4 Estimated GFR 24 24 Random Glucose 128 H Fasting Glucose 135 H Calcium 8.8 D 8.5 Assessment and Plan (1) Acute on chronic diastolic (congestive) heart failure: Status: Acute Plan 83M PMH chf with recovered EF, cardiac arrest s/p AICD, ckd III, pafib, cad, pvd, hld, bph, kae presented with sob Acute on chronic CHF with recovered ejection fraction and right-sided heart failure complicated by ascites Continue Bumex infusion, 5 mg metalozone today, Cardiology following, monitor electrolytes Status post 3 L paracentesis 04/21/2024 with albumin given, additional paracentesis 04/23/24 4.5L with albumin Limited echo with significant right-sided dysfunction acute hypokalemia replace and monitor LIBRA and CKD 3 Likely cardiorenal, monitor closely while diuresing, nephro following Elevated LFTs due to right-sided heart failure Coronary disease Continue Xarelto and atorvastatin Paroxysmal atrial fibrillation continue amiodarone and Xarelto DVT prophylaxis on Xarelto DNR/DNI reason for continued hospitalization: Ongoing IV diuresis, Quality Stroke Does the patient have a stroke diagnosis?: No VTE Prior VTE?: No VTE Risk Level:: Medical - moderate - high VTE Device Contraindication: Treatment Not Indicated VTE Drug Contraindication: N/A - Med Ordered
[2024-04-25] MEDS: metOLazone 5 MG TABLET PO (11:12)
[2024-04-25] MEDS: cefTRIAXone sodium 1 GM VIAL IVPUSH (14:01)
[2024-04-25] MEDS: 0.9 % Sodium Chloride Flush 3 ML SYRINGE IVFLUSH (14:01)
[2024-04-25] MEDS: Amiodarone HCL 200 MG TABLET PO (17:22)
[2024-04-25] MEDS: Gabapentin 600 MG TABLET PO (20:59)
[2024-04-25] MEDS: Atorvastatin Calcium 40 MG TABLET PO (20:59)
[2024-04-26] VITALS (7 sets, daily range): BP systolic 95–106; BP diastolic 44–55; PULSE 51–70; RESP 14–26; TEMP 36.1–37; O2SAT 92–99; BMI 34.9
[2024-04-26] MEDS: Ferrous Sulfate 324 MG TABLET.DR PO (05:43)
[2024-04-26] MEDS: Levothyroxine Sodium 88 MCG TABLET PO (05:43)
[2024-04-26] MEDS: Pantoprazole Sodium 20 MG TABLET.DR 40 MG PO (05:43)
[2024-04-26 08:06] LABS: Mean Corpuscular HGB Conc 33.3 g/dl (31.0-36.0); Mean Corpuscular Hemoglobin 28.9 pg (27.0-33.0); Mean Corpuscular Volume 86.6 fL (80.0-98.0); Mean Platelet Volume 10.2 fL (9.4-12.4); Platelet Count 240 X10*3/uL (160-400); Red Blood Count 2.77 X10*6/uL (4.60-5.80); Red Cell Distribution Width 23.2 % (11.0-16.0); White Blood Count 9.1 X10*3/uL (4.8-10.8)
--- NOTE | 2024-04-26 08:40 | P.PNNP_ITS ---
Subjective Subjective Date of Service: 04/26/24 Principal diagnosis: Decompensated congestive heart failure Interval history: 83 y/o male with medical history of cardiac arrest (03/2023), biventricular ICD in place, HFrEF, CKD3, paroxysmal afib on xarelto, CAD, PVD, asthma, GERD, gout, KEVIN on CPAP. ED on 04/12 with dyspnea, weight gain, pedal edema for past few weeks. Referred to nephrology for LIBRA on CKD3 in setting of CHF exacerbation. GFR in 20s creatinine generally in 2's, has been trending up with continued diuresis 04/16/24 2.00 04/18/24 2.51 04/19/24 2.92 04/20/24 3.05 04/21/24 3.26 04/22/24 2.84 04/23/24 2.92 04/26/24 2.20 Urine bland 03/03/24 Renal US 02/11/[address] abd/pelvis kidneys and ureters unremarkable. patient has had mild hyponatremia since 02/24/24 potassium intermittently low, 04/26 is 2.2; being replaced with IV and oral KCl has worsening chronic normocytic anemia (since at least September 2023, he is on iron supplementation) Patient states his breathing is ok states he is urinating regularly/comfortably- UOP 2700mL last 24hr he denies other concerns/symptoms patient's abdomen is moderately distended and firm, he denies pain (receiving intermittent paracentesis every few days, albumin prior) Denies other symptoms, concerns Physical Exam 2 Vital Signs: Vital Signs: Last Vital Signs Temp 98.4 F 04/26/24 07:29 Pulse 60 04/26/24 07:29 Resp 17 04/26/24 07:29 BP 95/55 L 04/26/24 07:29 Pulse Ox 92 04/26/24 07:29 O2 Del Method Room Air 04/26/24 07:29 O2 Flow Rate 2 04/19/24 07:42 BMI result Body Mass Index 34.9 Const: General: cooperative, comfortable, alert, awake and tired appearing Nutritional Appearance: obese Orientation/consciousness: patient oriented x3 Neck: Neck: Yes trachea midline, Yes supple and Yes JVD Resp: Effort & Inspection: decreased respiratory effort Auscultation: no rales, no wheezes and diminished lung sounds Cardio: Jugular venous distension: JVD Rate: regular rate Rhythm: r egular rhythm Heart sounds: S1 normal heart sound present, S2 normal heart sound present, no click, no gallops and Murmur heart sound present GI: Inspection: Yes distended Auscultation: normal bowel sounds Skin: General skin exam: no rashes or lesions noted Neuro: General: patient oriented x3 and no focal motor deficits Extrem: General: Yes edema (trace BLE edema) Objective Data Labs 04/26/24 05:43 04/26/24 05:43 Labs: Laboratory Results - last 24 hr 04/26/24 05:43 WBC 9.1 RBC 2.77 L Hgb 8.0 L Hct 24.0 L MCV 86.6 MCH 28.9 MCHC 33.3 RDW 23.2 H Plt Count 240 MPV 10.2 Absolute Nucleated RBC 0.000 Nucleated RBC % (auto) 0.0 Sodium 128 L Potassium 2.1 L* D Chloride 82 L Carbon Dioxide 32 H Anion Gap 16 BUN 74 H Creatinine 2.20 H Estim Creat Clear Calc 26.9 Estimated GFR 29 Fasting Glucose 112 H Calcium 8.1 L Microbiology Microbiology Results: Microbiology 04/17/24 08:58 Sputum - Expectorated Gram Stain - Final 04/17/24 08:58 Sputum - Expectorated Sputum Culture - Final Achromobacter species 04/16/24 11:50 Abdominal Fluid Gram Stain - Final 04/16/24 11:50 Abdominal Fluid Routine Culture - Final No growth after 2 days 04/16/24 11:50 Abdominal Fluid Anaerobic Culture - Final NO GROWTH AFTER 5 DAYS Procedures Date of Service Date of Service: 04/26/24 Assessment & Plan Assessment and plan (1) LIBRA (acute kidney injury): Status: Acute (2) CKD (chronic kidney disease): Status: Acute (3) Acute on chronic diastolic (congestive) heart failure: Status: Acute (4) Hyponatremia: Status: Acute Plan LIBRA on CKD likely hypoperfusion in setting of heart failure exacerbation creatinine returned to baseline CKD, then had uptrend in setting of diuresis with serum sodium <20. Clinically remains fluid overloaded, recommend continuing diuresis, may come with rise in creatinine which we will accept; his creatinine has improved and is closer to baseline with more aggressive diuresis so recommend continuing current regimen. hyperkalemia secondary to diuresis with loop diuretic- recommend continue to monitor closely and replace potassium as needed recommend 1x 25gm albumin infusion prior to paracentesis when needed recommend to avoid metolazone due to hyponatremia recommend fluid balance of negative 1 to -2L / 24 hours recommend daily electrolyte and renal function studies, replace potassium as needed no indication for renal replacement at this time continue supportive care Will continue to follow Discussed with Dr Anguiano Time Spent With Patient Time: Total time managing care of this patient today ____ minutes. Progress Note: Quality Stroke Does the patient have a stroke diagnosis?: No
[2024-04-26 08:49] LABS: Anion Gap 16 (12-20); Blood Urea Nitrogen 74 mg/dL (9-16); Calcium 8.1 mg/dL (8.4-10.2); Carbon Dioxide 32 mmol/L (22-29); Chloride 82 mmol/L (96-108); Creatinine Clr Calc Pharmacy 26.9; Estimated Glomerular Filt Rate 29; Glucose Fasting 112 mg/dL (60-99); Potassium 2.1 mmol/L (3.3-5.1); Sodium 128 mmol/L (135-145)
[2024-04-26] MEDS: allopurinoL 100 MG TABLET PO (08:57)
[2024-04-26] MEDS: Finasteride 5 MG TABLET PO (08:57)
[2024-04-26] MEDS: Loratadine 10 MG TABLET PO (08:57)
[2024-04-26] MEDS: 0.9 % Sodium Chloride Flush 3 ML SYRINGE IVFLUSH ×3 (08:58→22:15)
[2024-04-26] MEDS: Magnesium Oxide 400 MG TABLET 800 MG PO ×2 (08:58→22:14)
[2024-04-26] MEDS: Potassium Chloride ER 20 MEQ TAB.ER.PRT 40 MEQ PO ×3 (09:00→22:14)
--- NOTE | 2024-04-26 10:09 | HO.PM.IMPN ---
Subjective Subjective Date of Service: 04/26/24 Interval History: skin tear bleed improved, worsening abd distension Physical Exam Vital Signs: Vital Signs: Last Vital Signs Temp 98.4 F 04/26/24 07:29 Pulse 60 04/26/24 07:29 Resp 17 04/26/24 07:29 BP 95/55 L 04/26/24 07:29 Pulse Ox 92 04/26/24 07:29 O2 Del Method Room Air 04/26/24 07:29 O2 Flow Rate 2 04/19/24 07:42 BMI result Body Mass Index 34.9 Const: General: cooperative, comfortable, alert, awake and tired appearing Nutritional Appearance: obese Orientation/consciousness: patient oriented x3 Neck: Neck: Yes trachea midline, Yes supple and Yes JVD Resp: Effort & Inspection: decreased respiratory effort Auscultation: no rales, no wheezes and diminished lung sounds Cardio: Jugular venous distension: JVD Rate: regular rate Rhythm: regular rhythm Heart sounds: S1 normal heart sound present, S2 normal heart sound present, no click, no gallops and Murmur heart sound present GI: Inspection: Yes distended Auscultation: normal bowel sounds Skin: General skin exam: no rashes or lesions noted Neuro: General: patient oriented x3 and no focal motor deficits Extrem: General: No clubbing, No cyanosis and Yes edema (Improved) Objective Data Active Medications Acetaminophen (Acetaminophen 325 Mg Tablet) 650 mg PO Q6H PRN PRN Reason: Pain, Mild (Pain Scale 1-3), fever or headache Last Admin: 04/18/24 08:56 Dose: 650 mg Documented By: JOAQUIM Allopurinol (Allopurinol 100 Mg Tablet) 100 mg PO DAILY@0900 [facility] Last Admin: 04/26/24 08:57 Dose: 100 mg Documented By: HAILEY Amiodarone HCl (Amiodarone Hcl 200 Mg Tablet) 200 mg PO DAILY@1700 [facility] Last Admin: 04/25/24 17:22 Dose: 200 mg Documented By: DANY Atorvastatin Calcium (Atorvastatin Calcium 40 Mg Tablet) 40 mg PO BEDTIME [facility] Last Admin: 04/25/24 20:59 Dose: 40 mg Documented By: MAHIN Benzonatate (Benzonatate 100 Mg Capsule) 100 mg PO TID PRN PRN Reason: Cough Last Admin: 04/25/24 09:31 Dose: 100 mg Documented By: LUIS Calcium Carbonate (Calcium Carbonate 750 Mg Tab.Chew) 750 mg PO Q4H PRN PRN Reason: Heartburn Ceftriaxone Sodium (Ceftriaxone Sodium 1 Gm Vial) 1 gm IVPUSH Q24H [facility] Last Admin: 04/25/24 14:01 Dose: 1 gm Documented By: LUIS Cilostazol (Cilostazol 50 Mg Tablet) 50 mg PO BID [facility] Last Admin: 04/18/24 08:56 Dose: 50 mg Documented By: JOAQUIM Ferrous Sulfate (Ferrous Sulfate 324 Mg Tablet.Dr) 324 mg PO DAILY@0600 [facility] Last Admin: 04/26/24 05:43 Dose: 324 mg Documented By: MAHIN Finasteride (Finasteride 5 Mg Tablet) 5 mg PO DAILY@0900 [facility] Last Admin: 04/26/24 08:57 Dose: 5 mg Documented By: HAILEY Gabapentin (Gabapentin 600 Mg Tablet) 600 mg PO BEDTIME [facility] Last Admin: 04/25/24 20:59 Dose: 600 mg Documented By: MAHIN Guaifenesin (Guaifenesin 200 Mg/10 Ml 10 Ml Liquid) 10 ml PO Q4H PRN PRN Reason: Cough Last Admin: 04/24/24 20:40 Dose: 10 ml Documented By: KEMI Bumetanide 25 mg/ IV (Miscellaneous Supplies) 100 mls @ 2 mls/hr IVCONT .Q24H [facility] Last Admin: 04/25/24 09:32 Dose: 0.5 mg/hr, 2 mls/hr Documented By: LUIS Potassium Chloride (Potassium Chloride/H20) 10 meq in 100 mls @ 100 mls/hr IV Q1H [facility] Stop: 04/26/24 12:59 Levothyroxine Sodium (Levothyroxine Sodium 88 Mcg Tablet) 88 mcg PO DAILY@0600 [facility] Last Admin: 04/26/24 05:43 Dose: 88 mcg Documented By: MAHIN Loratadine (Loratadine 10 Mg Tablet) 10 mg PO DAILY [facility] Last Admin: 04/26/24 08:57 Dose: 10 mg Documented By: HAILEY Magnesium Hydroxide (Milk Of Magnesia 30 Ml Oral.Susp) 30 ml PO DAILY PRN PRN Reason: Constipation Magnesium Oxide (Magnesium Oxide 400 Mg Tablet) 800 mg PO BID [facility] Last Admin: 04/26/24 08:58 Dose: 800 mg Documented By: HAILEY Melatonin (Melatonin 3 Mg Tablet) 6 mg PO BEDTIME PRN PRN Reason: Insomnia Last Admin: 04/25/24 01:33 Dose: 6 mg Documented By: KEMI Ondansetron HCl (Ondansetron Hcl 4 Mg/2 Ml Vial) 4 mg IVPUSH Q6H PRN PRN Reason: Nausea and Vomiting Last Admin: 04/21/24 04:58 Dose: 4 mg Documented By: ERMA Pantoprazole Sodium (Pantoprazole Sodium 20 Mg Tablet.Dr) 40 mg PO DAILY@0630 [facility] Last Admin: 04/26/24 05:43 Dose: 40 mg Documented By: MAHIN Potassium Chloride (Potassium Chloride Er 20 Meq Tab.Er.Prt) 40 meq PO Q6H [facility] Stop: 04/26/24 15:01 Last Admin: 04/26/24 09:00 Dose: 40 meq Documented By: HAILEY Rivaroxaban (Rivaroxaban 15 Mg Tablet) 15 mg PO DAILY@1700 [facility] Last Admin: 04/22/24 17:37 Dose: 15 mg Documented By: SANJAY Sodium Chloride (0.9 % Sodium Chloride Flush 3 Ml Syringe) 3 ml IVFLUSH QSHIFT [facility] Last Admin: 04/26/24 08:58 Dose: 3 ml Documented By: HAILEY Labs 04/26/24 05:43 04/26/24 05:43 Labs: Laboratory Results - last 24 hr 04/26/24 05:43 MCV 86.6 MCH 28.9 MCHC 33.3 RDW 23.2 H Plt Count 240 MPV 10.2 Absolute Nucleated RBC 0.000 Nucleated RBC % (auto) 0.0 Anion Gap 16 Estim Creat Clear Calc 26.9 Estimated GFR 29 Fasting Glucose 112 H Calcium 8.1 L Assessment and Plan (1) Acute on chronic diastolic (congestive) heart failure: Status: Acute Plan 83M PMH chf with recovered EF, cardiac arrest s/p AICD, ckd III, pafib, cad, pvd, hld, bph, kae presented with sob Acute on chronic CHF with recovered ejection fraction and right-sided heart failure complicated by ascites Continue Bumex infusion, Cardiology following, monitor electrolytes Status post 3 L paracentesis 04/21/2024 with albumin given, additional paracentesis 04/23/24 4.5L with albumin, distended again, will request further paracentesis Limited echo with significant right-sided dysfunction acute severe hypokalemia replace and monitor LIBRA and CKD 3 Likely cardiorenal, monitor closely while diuresing, nephro following Elevated LFTs due to right-sided heart failure Coronary disease Continue Xarelto and atorvastatin Paroxysmal atrial fibrillation continue amiodarone and Xarelto DVT prophylaxis on Xarelto DNR/DNI reason for continued hospitalization: Ongoing IV diuresis, severe low k Quality Stroke Does the patient have a stroke diagnosis?: No VTE Prior VTE?: No VTE Risk Level:: Medical - moderate - high VTE Device Contraindication: Treatment Not Indicated VTE Drug Contraindication: N/A - Med Ordered
[2024-04-26] MEDS: Potassium Chloride/H20 10 MEQ/100 ML PIGGYBACK 100 MEQ IV ×4 (11:28→19:09)
--- NOTE | 2024-04-26 12:28 | MHC.CM.PN ---
EMR REVIEWED, PT W/LIBRA ON CKD/CHF, PT'S BUMEX DRIP ON HOLD, POTASSIUM 2.1 W/IV REPLACEMENT, NO PLAN FOR DC AT THIS TIME, DANIEL'Armin ALEJANDRA FOLLOWING AND UPDATED VIA [facility], CM WILL CONT TO FOLLOW DC NEEDS.
[2024-04-26] MEDS: Lidocaine HCl 1 % MPF 5 ML VIAL SUBCUT (12:53)
--- NOTE | 2024-04-26 12:54 | PM.PNCARD ---
Subjective Subjective Date of Service: 04/26/24 Principal diagnosis: Decompensated congestive heart failure Interval history: Seen and examined at bedside. Improving. Looks volume overloaded though. Physical Exam Vital Signs: Last Vital Signs Temp 97.3 F 04/26/24 11:17 Pulse 60 04/26/24 11:17 Resp 17 04/26/24 11:17 BP 98/44 L 04/26/24 11:17 Pulse Ox 99 04/26/24 11:17 O2 Del Method Room Air 04/26/24 11:17 O2 Flow Rate 2 04/19/24 07:42 BMI result Body Mass Index 34.9 GENERAL APPEARANCE: in no acute distress. NECK: no carotid bruit, + jugular venous distention. SKIN: no suspicious lesions, warm and dry. HEART: no murmurs, regular rate and rhythm. LUNGS: clear to auscultation bilaterally. ABDOMEN: soft, nontender. EXTREMITIES: no edema. PERIPHERAL PULSES: equal. NEUROLOGIC: No gross deficits, AAO X 3 Objective Labs and Meds 04/26/24 05:43 04/26/24 05:43 Lab results: Laboratory Results - last 24 hr 04/26/24 05:43 WBC 9.1 RBC 2.77 L Hgb 8.0 L Hct 24.0 L MCV 86.6 MCH 28.9 MCHC 33.3 RDW 23.2 H Plt Count 240 MPV 10.2 Absolute Nucleated RBC 0.000 Nucleated RBC % (auto) 0.0 Sodium 128 L Potassium 2.1 L* D Chloride 82 L Carbon Dioxide 32 H Anion Gap 16 BUN 74 H Creatinine 2.20 H Estim Creat Clear Calc 26.9 Estimated GFR 29 Fasting Glucose 112 H Calcium 8.1 L Progress Note: A&P Assessment and plan (1) Heart failure, chronic, with acute decompensation: Status: Acute Plan 83-year-old gentleman with acute on chronic congestive heart failure with predominantly right-sided heart failure at this point. 04/21/2024 year limited echocardiogram which showed severely dilated right ventricle with moderate RV dysfunction. Blood pressure is borderline. His electrolytes are also quite abnormal as potassium is 2.1. Please aggressively replete and start him on spironolactone 25 mg daily. Hold the drip till potassium improved. He previously had cardiac arrest and had ICD placed. On amiodarone 200 mg daily. He is receiving bolus doses of metolazone off and on and probably that is the reason his potassium has been so low. I think he will benefit from spironolactone and we should start him on 25 mg bid spironolactone. Eventually will start him on torsemide. Cilostazol is contraindicated with congestive heart failure. It should be discontinued on discharge. We will follow along with you. Thank you for allowing me to participate in the care of your patient. Please feel free to contact me if you have any questions. Time Spent With Patient Time: Total time managing care of this patient today ____ minutes. Progress Note: Quality Stroke Does the patient have a stroke diagnosis?: No Procedures Date of Service Date of Service: 04/26/24
[2024-04-26] MEDS: cefTRIAXone sodium 1 GM VIAL IVPUSH (16:20)
[2024-04-26] MEDS: Amiodarone HCL 200 MG TABLET PO (16:21)
[2024-04-26] MEDS: Spironolactone 25 MG TABLET PO (16:21)
[2024-04-26 16:36] LABS: Anion Gap 18 (12-20); Blood Urea Nitrogen 77 mg/dL (9-16); Calcium 8.4 mg/dL (8.4-10.2); Carbon Dioxide 30 mmol/L (22-29); Chloride 82 mmol/L (96-108); Creatinine Clr Calc Pharmacy 29.6; Estimated Glomerular Filt Rate 32; Glucose Random 138 mg/dL (60-115); Potassium 2.6 mmol/L (3.3-5.1); Sodium 127 mmol/L (135-145)
[2024-04-26] MEDS: Gabapentin 600 MG TABLET PO (22:14)
[2024-04-26] MEDS: Atorvastatin Calcium 40 MG TABLET PO (22:14)
[2024-04-26] MEDS: Melatonin 3 MG TABLET 6 MG PO (23:31)
[2024-04-27] VITALS (11 sets, daily range): BP systolic 87–116; BP diastolic 40–58; PULSE 55–70; RESP 15–20; TEMP 36.2–37; O2SAT 92–100
[2024-04-27] MEDS: Ferrous Sulfate 324 MG TABLET.DR PO (06:06)
[2024-04-27] MEDS: Levothyroxine Sodium 88 MCG TABLET PO (06:06)
[2024-04-27] MEDS: Pantoprazole Sodium 20 MG TABLET.DR 40 MG PO (06:06)
[2024-04-27 07:43] LABS: Hematocrit 26.7 % (42.0-52.0); Hemoglobin 8.7 g/dl (14.0-18.0); Mean Corpuscular HGB Conc 32.6 g/dl (31.0-36.0); Mean Corpuscular Hemoglobin 28.2 pg (27.0-33.0); Mean Corpuscular Volume 86.7 fL (80.0-98.0); Mean Platelet Volume 9.9 fL (9.4-12.4); Platelet Count 265 X10*3/uL (160-400); Red Blood Count 3.08 X10*6/uL (4.60-5.80); Red Cell Distribution Width 23.1 % (11.0-16.0); White Blood Count 11.1 X10*3/uL (4.8-10.8)
[2024-04-27 07:59] LABS: Anion Gap 17 (12-20); Blood Urea Nitrogen 74 mg/dL (9-16); Calcium 8.2 mg/dL (8.4-10.2); Carbon Dioxide 29 mmol/L (22-29); Chloride 83 mmol/L (96-108); Creatinine Clr Calc Pharmacy 33.1; Estimated Glomerular Filt Rate 37; Glucose Fasting 152 mg/dL (60-99); Magnesium 3.1 mg/dL (1.6-2.6); Potassium 3.5 mmol/L (3.3-5.1); Sodium 125 mmol/L (135-145)
[2024-04-27] MEDS: Magnesium Oxide 400 MG TABLET 800 MG PO (08:59)
[2024-04-27] MEDS: Loratadine 10 MG TABLET PO (08:59)
[2024-04-27] MEDS: Spironolactone 25 MG TABLET PO ×2 (08:59→17:16)
[2024-04-27] MEDS: Finasteride 5 MG TABLET PO (09:00)
[2024-04-27] MEDS: allopurinoL 100 MG TABLET PO (09:00)
[2024-04-27] MEDS: 0.9 % Sodium Chloride Flush 3 ML SYRINGE IVFLUSH ×3 (09:00→22:01)
--- NOTE | 2024-04-27 09:25 | HO.PM.IMPN ---
Subjective Subjective Date of Service: 04/27/24 Interval History: abdomen softer Physical Exam Vital Signs: Vital Signs: Last Vital Signs Temp 98.1 F 04/27/24 09:00 Pulse 62 04/27/24 09:00 Resp 16 04/27/24 09:00 BP 90/50 L 04/27/24 09:00 Pulse Ox 97 04/27/24 09:00 O2 Del Method Room Air 04/27/24 09:00 O2 Flow Rate 2 04/19/24 07:42 BMI result Body Mass Index 34.9 GENERAL APPEARANCE: in no acute distress. NECK: no carotid bruit, + jugular venous distention. SKIN: no suspicious lesions, warm and dry. HEART: no murmurs, regular rate and rhythm. LUNGS: clear to auscultation bilaterally. ABDOMEN: soft, nontender. EXTREMITIES: no edema. PERIPHERAL PULSES: equal. NEUROLOGIC: No gross deficits, AAO X 3 Objective Data Active Medications Acetaminophen (Acetaminophen 325 Mg Tablet) 650 mg PO Q6H PRN PRN Reason: Pain, Mild (Pain Scale 1-3), fever or headache Last Admin: 04/18/24 08:56 Dose: 650 mg Documented By: JOAQUIM Allopurinol (Allopurinol 100 Mg Tablet) 100 mg PO DAILY@0900 [facility] Last Admin: 04/27/24 09:00 Dose: 100 mg Documented By: HAILEY Amiodarone HCl (Amiodarone Hcl 200 Mg Tablet) 200 mg PO DAILY@1700 [facility] Last Admin: 04/26/24 16:21 Dose: 200 mg Documented By: HAILEY Atorvastatin Calcium (Atorvastatin Calcium 40 Mg Tablet) 40 mg PO BEDTIME [facility] Last Admin: 04/26/24 22:14 Dose: 40 mg Documented By: ANA Benzonatate (Benzonatate 100 Mg Capsule) 100 mg PO TID PRN PRN Reason: Cough Last Admin: 04/25/24 09:31 Dose: 100 mg Documented By: COLTCIAV Calcium Carbonate (Calcium Carbonate 750 Mg Tab.Chew) 750 mg PO Q4H PRN PRN Reason: Heartburn Ceftriaxone Sodium (Ceftriaxone Sodium 1 Gm Vial) 1 gm IVPUSH Q24H [facility] Last Admin: 04/26/24 16:20 Dose: 1 gm Documented By: HAILEY Ferrous Sulfate (Ferrous Sulfate 324 Mg Tablet.) 324 mg PO DAILY@0600 [facility] Last Admin: 04/27/24 06:06 Dose: 324 mg Documented By: SARATH Finasteride (Finasteride 5 Mg Tablet) 5 mg PO DAILY@0900 [facility] Last Admin: 04/27/24 09:00 Dose: 5 mg Documented By: HAILEY Gabapentin (Gabapentin 600 Mg Tablet) 600 mg PO BEDTIME [facility] Last Admin: 04/26/24 22:14 Dose: 600 mg Documented By: ANA Guaifenesin (Guaifenesin 200 Mg/10 Ml 10 Ml Liquid) 10 ml PO Q4H PRN PRN Reason: Cough Last Admin: 04/24/24 20:40 Dose: 10 ml Documented By: KEMI Bumetanide 25 mg/ IV (Miscellaneous Supplies) 100 mls @ 2 mls/hr IVCONT .Q24H [facility] Last Admin: 04/26/24 12:11 Dose: Not Given Documented By: HAILEY Non-Admin Reason: Physician Held Med Levothyroxine Sodium (Levothyroxine Sodium 88 Mcg Tablet) 88 mcg PO DAILY@0600 [facility] Last Admin: 04/27/24 06:06 Dose: 88 mcg Documented By: SARATH Loratadine (Loratadine 10 Mg Tablet) 10 mg PO DAILY [facility] Last Admin: 04/27/24 08:59 Dose: 10 mg Documented By: HAILEY Magnesium Hydroxide (Milk Of Magnesia 30 Ml Oral.Susp) 30 ml PO DAILY PRN PRN Reason: Constipation Magnesium Oxide (Magnesium Oxide 400 Mg Tablet) 800 mg PO BID [facility] Last Admin: 04/27/24 08:59 Dose: 800 mg Documented By: HAILEY Melatonin (Melatonin 3 Mg Tablet) 6 mg PO BEDTIME PRN PRN Reason: Insomnia Last Admin: 04/26/24 23:31 Dose: 6 mg Documented By: MAHIN Ondansetron HCl (Ondansetron Hcl 4 Mg/2 Ml Vial) 4 mg IVPUSH Q6H PRN PRN Reason: Nausea and Vomiting Last Admin: 04/21/24 04:58 Dose: 4 mg Documented By: ERMA Pantoprazole Sodium (Pantoprazole Sodium 20 Mg Tablet.) 40 mg PO DAILY@0630 [facility] Last Admin: 04/27/24 06:06 Dose: 40 mg Documented By: SARATH Rivaroxaban (Rivaroxaban 15 Mg Tablet) 15 mg PO DAILY@1700 [facility] Last Admin: 04/22/24 17:37 Dose: 15 mg Documented By: SANJAY Sodium Chloride (0.9 % Sodium Chloride Flush 3 Ml Syringe) 3 ml IVFLUSH QSHIFT [facility] Last Admin: 04/27/24 09:00 Dose: 3 ml Documented By: HAILEY Spironolactone (Spironolactone 25 Mg Tablet) 25 mg PO BID@0900,1800 [facility]; Protocol Last Admin: 04/27/24 08:59 Dose: 25 mg Documented By: HAILEY Labs 04/27/24 07:08 04/27/24 07:08 Labs: Laboratory Results - last 24 hr 04/26/24 04/27/24 15:31 07:08 MCV 86.7 MCH 28.2 MCHC 32.6 RDW 23.1 H Plt Count 265 MPV 9.9 Absolute Nucleated RBC 0.000 Nucleated RBC % (auto) 0.0 Anion Gap 18 17 Estim Creat Clear Calc 29.6 33.1 Estimated GFR 32 37 Random Glucose 138 H Fasting Glucose 152 H Calcium 8.4 8.2 L Magnesium 3.1 H Assessment and Plan (1) Acute on chronic diastolic (congestive) heart failure: Status: Acute Plan 83M PMH chf with recovered EF, cardiac arrest s/p AICD, ckd III, pafib, cad, pvd, hld, bph, kae presented with sob Acute on chronic CHF with recovered ejection fraction and right-sided heart failure complicated by ascites Bumex infusion currently on hold for hypokalemia was previously on 0.5mg/hr with several doses of metolazone, has diuresed about 13L since admission Cardiology following, monitor electrolytes Status post multiple paracenteses Limited echo with significant right-sided dysfunction acute severe hypokalemia replaced, increased from 2.1 to 3.5 today, will give another 40meq, started on aldactone, monitor LIBRA and CKD 3 Likely cardiorenal, monitor, improved with diuresis peak creatinine 3.26, now 1.79 (likely close to new baseline) Elevated LFTs due to right-sided heart failure Coronary disease atorvastatin xarelto discontinued indefinitely due to recurrent epistaxis and bleeding skin tear Paroxysmal atrial fibrillation continue amiodarone xarelto discontinued DVT prophylaxis - hep sq DNR/DNI reason for continued hospitalization: still with fluid overload Quality Stroke Does the patient have a stroke diagnosis?: No VTE Prior VTE?: No VTE Risk Level:: Medical - moderate - high VTE Device Contraindication: Treatment Not Indicated VTE Drug Contraindication: N/A - Med Ordered
--- NOTE | 2024-04-27 09:31 | P.PNNP_ITS ---
Subjective Subjective Date of Service: 04/27/24 Principal diagnosis: Decompensated congestive heart failure Interval history: 83 y/o male with medical history of cardiac arrest (03/2023), biventricular ICD in place, HFrEF, CKD3, paroxysmal afib on xarelto, CAD, PVD, asthma, GERD, gout, KEVIN on CPAP. ED on 04/12 with dyspnea, weight gain, pedal edema for past few weeks. Referred to nephrology for LIBRA on CKD3 in setting of CHF exacerbation. GFR in 20s creatinine generally in 2's, has been trending up with continued diuresis 04/19/24 2.92 04/20/24 3.05 04/21/24 3.26 04/22/24 2.84 04/23/24 2.92 04/26/24 2.20 04/27/24 1.79 Urine bland 03/03/24 Renal US 02/11/[address] abd/pelvis kidneys and ureters unremarkable. patient has had mild hyponatremia since 02/24/24; 125 this a.m. potassium intermittently low, 04/26 was 2.1; replaced with IV and oral KCl and bumex held, spironolactone 25mg BID started has worsening chronic normocytic anemia (since at least September 2023, he is on iron supplementation) Patient states his breathing is ok states he is urinating regularly/comfortably- UOP 2700mL last 24hr he denies other concerns/symptoms patient's abdomen is moderately distended and firm, he denies pain (receiving intermittent paracentesis every few days, albumin prior) Denies other symptoms, concerns Physical Exam 2 Vital Signs: Vital Signs: Last Vital Signs Temp 98.1 F 04/27/24 09:00 Pulse 62 04/27/24 09:00 Resp 16 04/27/24 09:00 BP 90/50 L 04/27/24 09:00 Pulse Ox 97 04/27/24 09:00 O2 Del Method Room Air 04/27/24 09:00 O2 Flow Rate 2 04/19/24 07:42 BMI result Body Mass Index 34.9 Const: General: cooperative, comfortable, alert, awake and tired appearing Nutritional Appearance: obese Orientation/consciousness: patient oriented x3 Neck: Neck: Yes trachea midline, Yes supple and Yes JVD Resp: Effort & Inspection: decreased respiratory effort Auscultation: no rales, no wheezes and diminished lung sounds Cardio: Jugular venous distension: JVD Rate: regular rate Rhythm: r egular rhythm Heart sounds: S1 normal heart sound present, S2 normal heart sound present, no click, no gallops and Murmur heart sound present GI: Inspection: Yes distended Auscultation: normal bowel sounds Skin: General skin exam: no rashes or lesions noted Neuro: General: patient oriented x3 and no focal motor deficits Extrem: General: Yes edema (trace BLE edema) Objective Data Labs 04/27/24 07:08 04/27/24 07:08 Labs: Laboratory Results - last 24 hr 04/26/24 04/27/24 15:31 07:08 WBC 11.1 H RBC 3.08 L Hgb 8.7 L Hct 26.7 L MCV 86.7 MCH 28.2 MCHC 32.6 RDW 23.1 H Plt Count 265 MPV 9.9 Absolute Nucleated RBC 0.000 Nucleated RBC % (auto) 0.0 Sodium 127 L 125 L Potassium 2.6 L* D 3.5 D Chloride 82 L 83 L Carbon Dioxide 30 H 29 Anion Gap 18 17 BUN 77 H 74 H Creatinine 2.00 H 1.79 H Estim Creat Clear Calc 29.6 33.1 Estimated GFR 32 37 Random Glucose 138 H Fasting Glucose 152 H Calcium 8.4 8.2 L Magnesium 3.1 H Microbiology Microbiology Results: Microbiology 04/17/24 08:58 Sputum - Expectorated Gram Stain - Final 04/17/24 08:58 Sputum - Expectorated Sputum Culture - Final Achromobacter species 04/16/24 11:50 Abdominal Fluid Gram Stain - Final 04/16/24 11:50 Abdominal Fluid Routine Culture - Final No growth after 2 days 04/16/24 11:50 Abdominal Fluid Anaerobic Culture - Final NO GROWTH AFTER 5 DAYS Procedures Date of Service Date of Service: 04/27/24 Assessment & Plan Assessment and plan (1) LIBRA (acute kidney injury): Status: Acute (2) CKD (chronic kidney disease): Status: Acute (3) Acute on chronic diastolic (congestive) heart failure: Status: Acute (4) Hyponatremia: Status: Acute Plan LIBRA on CKD likely hypoperfusion in setting of heart failure exacerbation creatinine currently improving creatinine has been fluctuating with diuresis, though remains within his baseline at this time. Clinically remains fluid overloaded, recommend continuing current diuresis plan, may come with rise in creatinine which we will accept. hyperkalemia secondary to diuresis with loop diuretic- recommend continue to monitor closely and replace potassium as needed Hyponatremia likely secondary to metolazone boluses, recommend avoiding recommend 1x 25gm albumin infusion prior to paracentesis when needed recommend fluid balance of negative 1 to -2L / 24 hours - excluding fluid removed PRN by paracentesis recommend daily electrolyte and renal function studies, replace potassium as needed no indication for renal replacement at this time continue supportive care Will continue to follow Discussed with Dr Anguiano Time Spent With Patient Time: Total time managing care of this patient today ____ minutes. Progress Note: Quality Stroke Does the patient have a stroke diagnosis?: No
[2024-04-27] MEDS: Heparin Sodium,Porcine 5,000 UNIT/ML VIAL 5000 UNIT SUBCUT ×2 (11:47→17:07)
[2024-04-27] MEDS: Potassium Chloride ER 20 MEQ TAB.ER.PRT 40 MEQ PO (11:47)
--- NOTE | 2024-04-27 12:40 | PM.PNCARD ---
Subjective Subjective Date of Service: 04/27/24 Principal diagnosis: Decompensated congestive heart failure Interval history: Seen examined at bedside. Overall clinically improving. He has been off anticoagulation due to epistaxis and skin tear and bleeding from the arm. Apparently Xarelto was restarted but he bled again. Physical Exam Vital Signs: Last Vital Signs Temp 98.1 F 04/27/24 09:00 Pulse 62 04/27/24 09:00 Resp 16 04/27/24 09:00 BP 90/50 L 04/27/24 09:00 Pulse Ox 97 04/27/24 09:00 O2 Del Method Room Air 04/27/24 09:00 O2 Flow Rate 2 04/19/24 07:42 BMI result Body Mass Index 34.9 GENERAL APPEARANCE: in no acute distress. NECK: no carotid bruit, + jugular venous distention. SKIN: no suspicious lesions, warm and dry. HEART: no murmurs, regular rate and rhythm. LUNGS: clear to auscultation bilaterally. ABDOMEN: soft, nontender. EXTREMITIES: no edema. PERIPHERAL PULSES: equal. NEUROLOGIC: No gross deficits, AAO X 3 Objective Labs and Meds 04/27/24 07:08 04/27/24 07:08 Lab results: Laboratory Results - last 24 hr 04/26/24 04/27/24 15:31 07:08 WBC 11.1 H RBC 3.08 L Hgb 8.7 L Hct 26.7 L MCV 86.7 MCH 28.2 MCHC 32.6 RDW 23.1 H Plt Count 265 MPV 9.9 Absolute Nucleated RBC 0.000 Nucleated RBC % (auto) 0.0 Sodium 127 L 125 L Potassium 2.6 L* D 3.5 D Chloride 82 L 83 L Carbon Dioxide 30 H 29 Anion Gap 18 17 BUN 77 H 74 H Creatinine 2.00 H 1.79 H Estim Creat Clear Calc 29.6 33.1 Estimated GFR 32 37 Random Glucose 138 H Fasting Glucose 152 H Calcium 8.4 8.2 L Magnesium 3.1 H Imaging Radiologist's impression: Impressions Paracentesis Ultrasound 04/26/24 11:45 IMPRESSION: Ultrasound-guided paracentesis as described above. No immediate complications Electronically signed by: Wily Briscoe MD 04/27/2024 11:08 AM [facility] Progress Note: A&P Assessment and plan (1) Acute on chronic diastolic (congestive) heart failure: Status: Acute Plan Pleasant 83 year gentleman with acute on chronic diastolic heart failure with right more than left-sided failure currently. He was on Bumex and metolazone combination with significant hypokalemia with potassium 2.1. We have stopped the Bumex drip and started him on spironolactone 25 mg twice a day. His potassium is improving and currently it is 3.5. Start him on oral torsemide 80 mg in the morning and 40 in the afternoon. Continue spironolactone at 25 mg twice a day and blood pressure is stable increase it to 50 mg twice a day. His magnesium level is 3.1 and I have held the magnesium oxide for now. Cilostazol should be discontinued at discharge due to congestive heart failure as it is contraindicated. He is not on rivaroxaban due to skin tear and bleeding as well as epistaxis. Apparently it was resumed but he bled again and currently it is on hold indefinitely. Discussions about Watchman can be done as outpatient. Thank you for allowing me to participate in the care of your patient. Please feel free to contact me if you have any questions. Time Spent With Patient Time: Total time managing care of this patient today ____ minutes. Progress Note: Quality Stroke Does the patient have a stroke diagnosis?: No Procedures Date of Service Date of Service: 04/27/24
[2024-04-27] MEDS: cefTRIAXone sodium 1 GM VIAL IVPUSH (17:07)
[2024-04-27] MEDS: Milk of Magnesia 30 ML ORAL.SUSP PO (17:08)
[2024-04-27] MEDS: Amiodarone HCL 200 MG TABLET PO (17:08)
[2024-04-27] MEDS: Gabapentin 600 MG TABLET PO (21:46)
[2024-04-27] MEDS: Torsemide 20 MG TABLET 40 MG PO (21:47)
[2024-04-27] MEDS: Benzonatate 100 MG CAPSULE PO (21:50)
[2024-04-27] MEDS: Melatonin 3 MG TABLET 6 MG PO (21:51)
[2024-04-27] MEDS: Atorvastatin Calcium 40 MG TABLET PO (21:58)
[2024-04-28] VITALS (8 sets, daily range): BP systolic 97–112; BP diastolic 49–71; PULSE 58–67; RESP 16–20; TEMP 36.1–37.2; O2SAT 98–100; BMI 35.3
[2024-04-28] MEDS: Heparin Sodium,Porcine 5,000 UNIT/ML VIAL 5000 UNIT SUBCUT ×3 (02:27→17:11)
[2024-04-28] MEDS: Ferrous Sulfate 324 MG TABLET.DR PO (06:45)
[2024-04-28] MEDS: Levothyroxine Sodium 88 MCG TABLET PO (06:45)
[2024-04-28] MEDS: Pantoprazole Sodium 20 MG TABLET.DR 40 MG PO (06:45)
[2024-04-28 07:00] LABS: Hematocrit 27.2 % (42.0-52.0); Hemoglobin 9.1 g/dl (14.0-18.0); Mean Corpuscular HGB Conc 33.5 g/dl (31.0-36.0); Mean Corpuscular Volume 86.6 fL (80.0-98.0); Mean Platelet Volume 10.3 fL (9.4-12.4); Platelet Count 267 X10*3/uL (160-400); Red Blood Count 3.14 X10*6/uL (4.60-5.80); Red Cell Distribution Width 23.2 % (11.0-16.0); White Blood Count 11.1 X10*3/uL (4.8-10.8)
[2024-04-28 07:22] LABS: Anion Gap 15 (12-20); Blood Urea Nitrogen 77 mg/dL (9-16); Calcium 7.6 mg/dL (8.4-10.2); Carbon Dioxide 30 mmol/L (22-29); Chloride 83 mmol/L (96-108); Creatinine Clr Calc Pharmacy 28.8; Estimated Glomerular Filt Rate 31; Glucose Fasting 126 mg/dL (60-99); Potassium 4.3 mmol/L (3.3-5.1); Sodium 124 mmol/L (135-145)
[2024-04-28] MEDS: Torsemide 20 MG TABLET 80 MG PO ×3 (09:14→21:25)
[2024-04-28] MEDS: 0.9 % Sodium Chloride Flush 3 ML SYRINGE IVFLUSH ×3 (09:14→21:26)
[2024-04-28] MEDS: Finasteride 5 MG TABLET PO (09:14)
[2024-04-28] MEDS: allopurinoL 100 MG TABLET PO (09:15)
[2024-04-28] MEDS: Loratadine 10 MG TABLET PO (09:15)
[2024-04-28] MEDS: Spironolactone 25 MG TABLET PO ×2 (09:15→17:11)
--- NOTE | 2024-04-28 11:48 | P.PNNP_ITS ---
Subjective Subjective Date of Service: 04/28/24 Principal diagnosis: Decompensated congestive heart failure Interval history: 83 y/o male with medical history of cardiac arrest (03/2023), biventricular ICD in place, HFrEF, CKD3, paroxysmal afib on xarelto, CAD, PVD, asthma, GERD, gout, KEVIN on CPAP. ED on 04/12 with dyspnea, weight gain, pedal edema for past few weeks. Referred to nephrology for LIBRA on CKD3 in setting of CHF exacerbation. GFR in 20s creatinine generally in 2's, has been trending up with continued diuresis 04/19/24 2.92 04/20/24 3.05 04/21/24 3.26 04/22/24 2.84 04/23/24 2.92 04/26/24 2.20 04/27/24 1.79 04/28/24 2.07 Urine bland 03/03/24 Renal US 02/11/[address] abd/pelvis kidneys and ureters unremarkable. patient has had mild hyponatremia since 02/24/24; worsened on 04/27 to 125, now 124 on 04/28 last metolazone bolus 04/25; bumex d/c'd 04/27 potassium intermittently low, 04/26 was 2.1; replaced with IV and oral KCl and bumex held, spironolactone 25mg BID, torsemide 80mg a.m., 40mg pm Patient states his breathing is ok states he is urinating regularly/comfortably- UOP 1125mL last 24hr he denies other concerns/symptoms patient's abdomen is moderately distended and firm, he denies pain (receiving intermittent paracentesis every few days, albumin prior) Denies other symptoms, concerns Physical Exam 2 Vital Signs: Vital Signs: Last Vital Signs Temp 97.6 F 04/28/24 11:27 Pulse 60 04/28/24 11:27 Resp 18 04/28/24 11:27 BP 107/58 L 04/28/24 11:27 Pulse Ox 100 04/28/24 11:27 O2 Del Method Room Air 04/28/24 11:27 O2 Flow Rate 2 04/19/24 07:42 BMI result Body Mass Index 35.3 Const: General: cooperative, comfortable, alert, awake and tired appearing Nutritional Appearance: obese Orientation/consciousness: patient oriented x3 Neck: Neck: Yes trachea midline, Yes supple and Yes JVD Resp: Effort & Inspection: decreased respiratory effort Auscultation: no rales, no wheezes and diminished lung sounds Cardio: Jugular venous distension: JVD Rate: regular rate Rhythm: r egular rhythm Heart sounds: S1 normal heart sound present, S2 normal heart sound present, no click, no gallops and Murmur heart sound present GI: Inspection: Yes distended Auscultation: normal bowel sounds Skin: General skin exam: no rashes or lesions noted Neuro: General: patient oriented x3 and no focal motor deficits Extrem: General: Yes edema (trace BLE edema) Objective Data Labs 04/28/24 06:20 04/28/24 06:20 Labs: Laboratory Results - last 24 hr 04/28/24 06:20 WBC 11.1 H RBC 3.14 L Hgb 9.1 L Hct 27.2 L MCV 86.6 MCH 29.0 MCHC 33.5 RDW 23.2 H Plt Count 267 MPV 10.3 Absolute Nucleated RBC 0.000 Nucleated RBC % (auto) 0.0 Sodium 124 L Potassium 4.3 D Chloride 83 L Carbon Dioxide 30 H Anion Gap 15 BUN 77 H Creatinine 2.07 H Estim Creat Clear Calc 28.8 Estimated GFR 31 Fasting Glucose 126 H Calcium 7.6 L D Microbiology Microbiology Results: Microbiology 04/17/24 08:58 Sputum - Expectorated Gram Stain - Final 04/17/24 08:58 Sputum - Expectorated Sputum Culture - Final Achromobacter species 04/16/24 11:50 Abdominal Fluid Gram Stain - Final 04/16/24 11:50 Abdominal Fluid Routine Culture - Final No growth after 2 days 04/16/24 11:50 Abdominal Fluid Anaerobic Culture - Final NO GROWTH AFTER 5 DAYS Procedures Date of Service Date of Service: 04/28/24 Assessment & Plan Assessment and plan (1) LIBRA (acute kidney injury): Status: Acute (2) CKD (chronic kidney disease): Status: Acute (3) Acute on chronic diastolic (congestive) heart failure: Status: Acute (4) Hyponatremia: Status: Acute Plan LIBRA on CKD likely hypoperfusion in setting of heart failure exacerbation stable labs reviewed creatinine slightly up today but remains with baseline creatinine has been fluctuating with diuresis, though remains within his baseline at this time. Clinically remains fluid overloaded, recommend continuing current diuresis plan, may come with rise in creatinine which we will accept. Hyponatremia likely secondary to aggressive diuresis in setting of heart failure; pt serum bicarb is elevated today so likely has some contraction alkalosis recommend continuing current diuretic plan with spironolactone and torsemide- if serum sodium drops further tomorrow a.m. would recommend discontinuing diuretics for 1 day to allow for some sodium correction recommend 1.5L/24 hour fluid restriction recommend 1x 25gm albumin infusion prior to paracentesis when needed recommend daily electrolyte and renal function studies, replace potassium as needed no indication for renal replacement at this time continue supportive care Will continue to follow Discussed with Dr Wren Time Spent With Patient Time: Total time managing care of this patient today ____ minutes. Progress Note: Quality Stroke Does the patient have a stroke diagnosis?: No
--- NOTE | 2024-04-28 12:08 | MHC.CM.PN ---
EMR REVIEWED, PT IMPROVING, PER HOSPITALIST ANTIC PT WILL BE CLEARED FOR DC TOMORROW TO STR, BELEN ALEJANDRA PROVIDED W/UPDATES AND REVIEWING, CM WILL CONT TO FOLLOW DC NEEDS.
--- NOTE | 2024-04-28 12:10 | PM.PNCARD ---
Subjective Subjective Date of Service: 04/28/24 Principal diagnosis: Decompensated congestive heart failure Interval history: Seen examined at bedside. Respiratory status is stable but he continues to have JVD and edema. Physical Exam Vital Signs: Last Vital Signs Temp 97.6 F 04/28/24 11:27 Pulse 60 04/28/24 11:27 Resp 18 04/28/24 11:27 BP 107/58 L 04/28/24 11:27 Pulse Ox 100 04/28/24 11:27 O2 Del Method Room Air 04/28/24 11:27 O2 Flow Rate 2 04/19/24 07:42 BMI result Body Mass Index 35.3 GENERAL APPEARANCE: in no acute distress. NECK: no carotid bruit, + jugular venous distention. SKIN: no suspicious lesions, warm and dry. HEART: no murmurs, regular rate and rhythm. LUNGS: Crackles right base. ABDOMEN: soft, nontender. EXTREMITIES: Right lower extremity 1+ edema. PERIPHERAL PULSES: equal. NEUROLOGIC: No gross deficits, AAO X 3 Objective Labs and Meds 04/28/24 06:20 04/28/24 06:20 Lab results: Laboratory Results - last 24 hr 04/28/24 06:20 WBC 11.1 H RBC 3.14 L Hgb 9.1 L Hct 27.2 L MCV 86.6 MCH 29.0 MCHC 33.5 RDW 23.2 H Plt Count 267 MPV 10.3 Absolute Nucleated RBC 0.000 Nucleated RBC % (auto) 0.0 Sodium 124 L Potassium 4.3 D Chloride 83 L Carbon Dioxide 30 H Anion Gap 15 BUN 77 H Creatinine 2.07 H Estim Creat Clear Calc 28.8 Estimated GFR 31 Fasting Glucose 126 H Calcium 7.6 L D Progress Note: A&P Assessment and plan (1) Acute on chronic diastolic (congestive) heart failure: Status: Acute Plan Pleasant 83 year gentleman with acute on chronic diastolic heart failure with right more than left-sided failure currently. He was on Bumex gtt and metolazone combination with significant hypokalemia with potassium 2.1. We have stopped the Bumex drip and started him on spironolactone 25 mg twice a day. His potassium is improving. Avoid oral supplements along with spironolactone. He is still has volume overload. I would try torsemide 80 mg twice a day and gave him 5 mg of metolazone with that today. I think he may need metolazone 3 times a week along with torsemide. Continue spironolactone at 25 mg twice a day and blood pressure is stable increase it to 50 mg twice a day. His magnesium level is 3.1 and I have held the magnesium oxide for now but probably this should be resumed at the home dose before discharge. Cilostazol should be discontinued at discharge due to congestive heart failure as it is contraindicated. He is not on rivaroxaban due to skin tear and bleeding as well as epistaxis. Apparently it was resumed but he bled again and currently it is on hold indefinitely. Discussions about Watchman can be done as outpatient. Thank you for allowing me to participate in the care of your patient. Please feel free to contact me if you have any questions. Time Spent With Patient Time: Total time managing care of this patient today ____ minutes. Progress Note: Quality Stroke Does the patient have a stroke diagnosis?: No Procedures Date of Service Date of Service: 04/28/24
--- NOTE | 2024-04-28 14:24 | HO.PM.IMPN ---
Subjective Subjective Date of Service: 04/28/24 Interval History: No acute issues overnight. Breathing at baseline. Mild abdominal distention Review of Systems Denies chest pain Denies shortness of breath Denies nausea vomiting diarrhea Denies fever chills Physical Exam Vital Signs: Vital Signs: Last Vital Signs Temp 97.6 F 04/28/24 11:27 Pulse 60 04/28/24 11:27 Resp 18 04/28/24 11:27 BP 107/58 L 04/28/24 11:27 Pulse Ox 100 04/28/24 11:27 O2 Del Method Room Air 04/28/24 11:27 O2 Flow Rate 2 04/19/24 07:42 BMI result Body Mass Index 35.3 Const: Other: Awake alert no acute distress Resp: Other: Diminished at bases but without rales rhonchi or wheezes Cardio: Other: No S4; positive S1-S2; no S3 2/6 systolic murmur GI: Other: Mild fluid wave. Bowel sounds quiet Extrem: Other: Bilateral edema Objective Data Active Medications Acetaminophen (Acetaminophen 325 Mg Tablet) 650 mg PO Q6H PRN PRN Reason: Pain, Mild (Pain Scale 1-3), fever or headache Last Admin: 04/18/24 08:56 Dose: 650 mg Documented By: JOAQUIM Allopurinol (Allopurinol 100 Mg Tablet) 100 mg PO DAILY@0900 [facility] Last Admin: 04/28/24 09:15 Dose: 100 mg Documented By: SANJAY Amiodarone HCl (Amiodarone Hcl 200 Mg Tablet) 200 mg PO DAILY@1700 [facility] Last Admin: 04/27/24 17:08 Dose: 200 mg Documented By: HAILEY Atorvastatin Calcium (Atorvastatin Calcium 40 Mg Tablet) 40 mg PO BEDTIME [facility] Last Admin: 04/27/24 21:58 Dose: 40 mg Documented By: DIAAN Benzonatate (Benzonatate 100 Mg Capsule) 100 mg PO TID PRN PRN Reason: Cough Last Admin: 04/27/24 21:50 Dose: 100 mg Documented By: DIANA Calcium Carbonate (Calcium Carbonate 750 Mg Tab.Chew) 750 mg PO Q4H PRN PRN Reason: Heartburn Ceftriaxone Sodium (Ceftriaxone Sodium 1 Gm Vial) 1 gm IVPUSH Q24H [facility] Last Admin: 04/27/24 17:07 Dose: 1 gm Documented By: HAILEY Ferrous Sulfate (Ferrous Sulfate 324 Mg Tablet.Dr) 324 mg PO DAILY@0600 [facility] Last Admin: 04/28/24 06:45 Dose: 324 mg Documented By: LAWSON Finasteride (Finasteride 5 Mg Tablet) 5 mg PO DAILY@0900 [facility] Last Admin: 04/28/24 09:14 Dose: 5 mg Documented By: SANJAY Gabapentin (Gabapentin 600 Mg Tablet) 600 mg PO BEDTIME [facility] Last Admin: 04/27/24 21:46 Dose: 600 mg Documented By: DIANA Guaifenesin (Guaifenesin 200 Mg/10 Ml 10 Ml Liquid) 10 ml PO Q4H PRN PRN Reason: Cough Last Admin: 04/24/24 20:40 Dose: 10 ml Documented By: KEMI Heparin Sodium (Porcine) (Heparin Sodium,Porcine 5,000 Unit/Ml Vial) 5,000 unit SUBCUT Q8H [facility] Last Admin: 04/28/24 10:38 Dose: 5,000 unit Documented By: SANJAY Levothyroxine Sodium (Levothyroxine Sodium 88 Mcg Tablet) 88 mcg PO DAILY@0600 [facility] Last Admin: 04/28/24 06:45 Dose: 88 mcg Documented By: LAWSON Loratadine (Loratadine 10 Mg Tablet) 10 mg PO DAILY [facility] Last Admin: 04/28/24 09:15 Dose: 10 mg Documented By: SANJAY Magnesium Hydroxide (Milk Of Magnesia 30 Ml Oral.Susp) 30 ml PO DAILY PRN PRN Reason: Constipation Last Admin: 04/27/24 17:08 Dose: 30 ml Documented By: HAILEY Melatonin (Melatonin 3 Mg Tablet) 6 mg PO BEDTIME PRN PRN Reason: Insomnia Last Admin: 04/27/24 21:51 Dose: 6 mg Documented By: DIANA Metolazone (Metolazone 5 Mg Tablet) 5 mg PO ONCE ONE Stop: 04/28/24 15:10 Ondansetron HCl (Ondansetron Hcl 4 Mg/2 Ml Vial) 4 mg IVPUSH Q6H PRN PRN Reason: Nausea and Vomiting Last Admin: 04/21/24 04:58 Dose: 4 mg Documented By: ERMA Pantoprazole Sodium (Pantoprazole Sodium 20 Mg Tablet.) 40 mg PO DAILY@0630 [facility] Last Admin: 04/28/24 06:45 Dose: 40 mg Documented By: LAWSON Sodium Chloride (0.9 % Sodium Chloride Flush 3 Ml Syringe) 3 ml IVFLUSH QSHIFT [facility] Last Admin: 04/28/24 09:14 Dose: 3 ml Documented By: SANJAY Spironolactone (Spironolactone 25 Mg Tablet) 25 mg PO BID@0900,1800 [facility]; Protocol Last Admin: 04/28/24 09:15 Dose: 25 mg Documented By: SANJAY Torsemide (Torsemide 20 Mg Tablet) 80 mg PO BID [facility]; Protocol Labs 04/28/24 06:20 04/28/24 06:20 Labs: Laboratory Results - last 24 hr 04/28/24 06:20 MCV 86.6 MCH 29.0 MCHC 33.5 RDW 23.2 H Plt Count 267 MPV 10.3 Absolute Nucleated RBC 0.000 Nucleated RBC % (auto) 0.0 Anion Gap 15 Estim Creat Clear Calc 28.8 Estimated GFR 31 Fasting Glucose 126 H Calcium 7.6 L D Assessment and Plan (1) Acute on chronic diastolic (congestive) heart failure: Status: Acute (2) CKD (chronic kidney disease): Status: Acute Plan 83M PMH chf with recovered EF, cardiac arrest s/p AICD, ckd III, pafib, cad, pvd, hld, bph, kae presented with sob; significant right heart failure 1.Acute on chronic CHF with recovered ejection fraction and right-sided heart failure complicated by ascites -bumex infusion DC in favor of Aldactone 25 mg daily -16 L negative since admission -has had multiple paracentesis since admission; will likely be a palliative procedure going forward -limited echo with significant right-sided dysfunction -we will discuss with family 2.Acute severe hypokalemia -repleted -follow renals/divalent 3.LIBRA and CKD 3 -stable; likely new baseline -follow renal/divalents 4. Abnormal LFTs -likely passive congestion 5.Paroxysmal atrial fibrillation -optimal control on current therapies -continue to hold anticoagulation hep sq DNR/DNI reason for continued hospitalization: still with fluid overload Quality Stroke Does the patient have a stroke diagnosis?: No VTE Prior VTE?: No VTE Risk Level:: Medical - moderate - high VTE Device Contraindication: Treatment Not Indicated VTE Drug Contraindication: N/A - Med Ordered
[2024-04-28] MEDS: metOLazone 5 MG TABLET PO (14:54)
[2024-04-28] MEDS: cefTRIAXone sodium 1 GM VIAL IVPUSH (14:54)
[2024-04-28] MEDS: Amiodarone HCL 200 MG TABLET PO (17:11)
[2024-04-28] MEDS: Melatonin 3 MG TABLET 6 MG PO (21:26)
[2024-04-28] MEDS: Benzonatate 100 MG CAPSULE PO (21:26)
[2024-04-28] MEDS: Gabapentin 600 MG TABLET PO (21:26)
[2024-04-28] MEDS: Atorvastatin Calcium 40 MG TABLET PO (21:26)
[2024-04-29] VITALS (10 sets, daily range): BP systolic 90–110; BP diastolic 49–55; PULSE 60–62; RESP 14–20; TEMP 36.2–37.1; O2SAT 93–100; BMI 35.5
[2024-04-29] MEDS: Heparin Sodium,Porcine 5,000 UNIT/ML VIAL 5000 UNIT SUBCUT ×3 (02:28→17:29)
[2024-04-29] MEDS: Ferrous Sulfate 324 MG TABLET.DR PO (06:34)
[2024-04-29] MEDS: Levothyroxine Sodium 88 MCG TABLET PO (06:34)
[2024-04-29] MEDS: Pantoprazole Sodium 20 MG TABLET.DR 40 MG PO (06:34)
[2024-04-29 06:53] LABS: MANUAL DIFF FLAG NO
[2024-04-29 07:03] LABS: Basophils Percent Auto 0.3 % (0-2); Eosinophils Absolute Auto 0.2 X10*3/uL (0.0-0.4); Eosinophils Percent Auto 1.9 % (0-4); Hematocrit 26.4 % (42.0-52.0); Imm Gran Abs Auto 0.15 X10*3/uL (0.00-0.03); Imm Gran Pct Auto 1.3 % (0.0-0.4); Lymphocytes Absolute Auto 0.9 X10*3/uL (1.2-4.9); Lymphocytes Percent Auto 7.7 % (20-40); Mean Corpuscular HGB Conc 34.1 g/dl (31.0-36.0); Mean Corpuscular Hemoglobin 29.1 pg (27.0-33.0); Mean Corpuscular Volume 85.4 fL (80.0-98.0); Mean Platelet Volume 10.2 fL (9.4-12.4); Monocytes Absolute Auto 0.8 X10*3/uL (0.1-1.2); Neutrophils Absolute Auto 9.5 x10*3/uL (2.0-8.3); Neutrophils Percent Auto 81.8 % (45-73); Platelet Count 271 X10*3/uL (160-400); Red Blood Count 3.09 X10*6/uL (4.60-5.80); Red Cell Distribution Width 22.6 % (11.0-16.0); White Blood Count 11.6 X10*3/uL (4.8-10.8)
[2024-04-29 07:23] LABS: Alanine Aminotransferase 28 U/L (0-40); Albumin Level 3.5 g/dL (3.5-5.0); Alkaline Phosphatase 138 U/L (39-117); Anion Gap 15 (12-20); Aspartate Amino Transferase 45 U/L (5-37); Bilirubin Total 0.6 mg/dL (0.0-1.0); Blood Urea Nitrogen 79 mg/dL (9-16); Calcium 7.8 mg/dL (8.4-10.2); Carbon Dioxide 31 mmol/L (22-29); Chloride 80 mmol/L (96-108); Estimated Glomerular Filt Rate 31; Glucose Fasting 118 mg/dL (60-99); Potassium 3.4 mmol/L (3.3-5.1); Sodium 123 mmol/L (135-145); Total Protein 5.3 g/dL (6.5-8.0)
--- NOTE | 2024-04-29 08:10 | P.PNNP_ITS ---
Subjective Subjective Date of Service: 04/29/24 Principal diagnosis: Decompensated congestive heart failure Interval history: 83 y/o male with medical history of cardiac arrest (03/2023), biventricular ICD in place, HFrEF, CKD3, paroxysmal afib on xarelto, CAD, PVD, asthma, GERD, gout, KEVIN on CPAP. ED on 04/12 with dyspnea, weight gain, pedal edema for past few weeks. Referred to nephrology for LIBRA on CKD3 in setting of CHF exacerbation. GFR in 20s creatinine generally in 2's, has been trending up with continued diuresis 04/19/24 2.92 04/20/24 3.05 04/21/24 3.26 04/22/24 2.84 04/23/24 2.92 04/26/24 2.20 04/27/24 1.79 04/28/24 2.07 04/29/24 2.06 Urine bland 03/03/24 Renal US 02/11/[address] abd/pelvis kidneys and ureters unremarkable. patient has had mild hyponatremia since 02/24/24; worsened on 04/27 to 125, 124 on 04/28, 123 today last metolazone bolus 04/25; bumex d/c'd 04/27 potassium intermittently low, 04/26 was 2.1; replaced with IV and oral KCl and bumex held, spironolactone 25mg BID, torsemide 80mg a.m., 40mg pm Patient states his breathing is ok states he is urinating regularly/comfortably- UOP 1125mL last 24hr he denies other concerns/symptoms patient's abdomen is moderately distended and firm, he denies pain (receiving intermittent paracentesis every few days, albumin prior) Denies other symptoms, concerns Physical Exam 2 Vital Signs: Vital Signs: Last Vital Signs Temp 97.4 F 04/29/24 11:38 Pulse 62 04/29/24 11:38 Resp 18 04/29/24 11:38 BP 90/51 L 04/29/24 11:38 Pulse Ox 99 04/29/24 11:38 O2 Del Method Room Air 04/29/24 11:38 O2 Flow Rate 2 04/19/24 07:42 BMI result Body Mass Index 35.5 Const: General: cooperative, comfortable, alert, awake and tired appearing Nutritional Appearance: obese Orientation/consciousness: patient oriented x3 Neck: Neck: Yes trachea midline, Yes supple and Yes JVD Resp: Effort & Inspection: decreased respiratory effort Auscultation: no rales, no wheezes and diminished lung sounds Cardio: Jugular venous distension: JVD Rate: regular rate Rhythm: r egular rhythm Heart sounds: S1 normal heart sound present, S2 normal heart sound present, no click, no gallops and Murmur heart sound present GI: Inspection: Yes distended Auscultation: normal bowel sounds Skin: General skin exam: no rashes or lesions noted Neuro: General: patient oriented x3 and no focal motor deficits Extrem: General: Yes edema (trace BLE edema) Objective Data Labs 04/29/24 06:36 04/29/24 06:36 Labs: Laboratory Results - last 24 hr 04/29/24 06:36 WBC 11.6 H RBC 3.09 L Hgb 9.0 L Hct 26.4 L MCV 85.4 MCH 29.1 MCHC 34.1 RDW 22.6 H Plt Count 271 MPV 10.2 Immature Gran % (Auto) 1.3 H Neut % (Auto) 81.8 H Lymph % (Auto) 7.7 L [place] % (Auto) 7.0 Eos % (Auto) 1.9 Baso % (Auto) 0.3 Lymph # (Auto) 0.9 L [place] # (Auto) 0.8 Eos # (Auto) 0.2 Baso # (Auto) 0.0 Abs Immat Gran (auto) 0.15 H Absolute Neuts (auto) 9.5 H Absolute Nucleated RBC 0.000 Nucleated RBC % (auto) 0.0 Sodium 123 L Potassium 3.4 D Chloride 80 L Carbon Dioxide 31 H Anion Gap 15 BUN 79 H Creatinine 2.06 H Estim Creat Clear Calc 29.0 Estimated GFR 31 Fasting Glucose 118 H Calcium 7.8 L Total Bilirubin 0.6 AST 45 H ALT 28 Alkaline Phosphatase 138 H Total Protein 5.3 L Albumin 3.5 Microbiology Microbiology Results: Microbiology 04/17/24 08:58 Sputum - Expectorated Gram Stain - Final 04/17/24 08:58 Sputum - Expectorated Sputum Culture - Final Achromobacter species 04/16/24 11:50 Abdominal Fluid Gram Stain - Final 04/16/24 11:50 Abdominal Fluid Routine Culture - Final No growth after 2 days 04/16/24 11:50 Abdominal Fluid Anaerobic Culture - Final NO GROWTH AFTER 5 DAYS Procedures Date of Service Date of Service: 04/29/24 Assessment & Plan Assessment and plan (1) LIBRA (acute kidney injury): Status: Acute (2) CKD (chronic kidney disease): Status: Acute (3) Acute on chronic diastolic (congestive) heart failure: Status: Acute (4) Hyponatremia: Status: Acute Plan LIBRA on CKD likely hypoperfusion in setting of heart failure exacerbation stable labs reviewed creatinine slightly up today but remains with baseline creatinine has been fluctuating with diuresis, though remains within his baseline at this time. Clinically remains fluid overloaded, recommend continuing current diuresis plan, may come with rise in creatinine which we will accept. Hyponatremia likely secondary to aggressive diuresis in setting of heart failure; pt serum bicarb is elevated so likely has some contraction alkalosis (intravascular)- pt still remains hypervolemic with persistent mild LE edema recommend continue oral diuretics as ordered, ordered 15gm urea powder for hyponatremia and will re-assess in a.m. recommend 1.5L/24 hour fluid restriction recommend 1x 25gm albumin infusion prior to paracentesis when needed recommend daily electrolyte and renal function studies, replace potassium as needed no indication for renal replacement at this time continue supportive care Will continue to follow Discussed with Dr Wren Time Spent With Patient Time: Total time managing care of this patient today ____ minutes. Progress Note: Quality Stroke Does the patient have a stroke diagnosis?: No
[2024-04-29] MEDS: Finasteride 5 MG TABLET PO (08:24)
[2024-04-29] MEDS: Torsemide 20 MG TABLET 80 MG PO ×2 (08:25→21:09)
[2024-04-29] MEDS: 0.9 % Sodium Chloride Flush 3 ML SYRINGE IVFLUSH ×3 (08:25→21:13)
[2024-04-29] MEDS: Loratadine 10 MG TABLET PO (08:25)
[2024-04-29] MEDS: Spironolactone 25 MG TABLET PO ×2 (08:25→17:29)
[2024-04-29] MEDS: allopurinoL 100 MG TABLET PO (08:25)
[2024-04-29] MEDS: Urea 15 GM POWDER PO (11:14)
--- NOTE | 2024-04-29 12:25 | PM.PNCARD ---
Subjective Subjective Date of Service: 04/29/24 Principal diagnosis: Decompensated congestive heart failure Interval history: Seen and examined at bedside. Doing well. Physical Exam Vital Signs: Last Vital Signs Temp 97.4 F 04/29/24 11:38 Pulse 62 04/29/24 11:38 Resp 18 04/29/24 11:38 BP 90/51 L 04/29/24 11:38 Pulse Ox 99 04/29/24 11:38 O2 Del Method Room Air 04/29/24 11:38 O2 Flow Rate 2 04/19/24 07:42 BMI result Body Mass Index 35.5 GENERAL APPEARANCE: in no acute distress. NECK: no carotid bruit, mild jugular venous distention. SKIN: no suspicious lesions, warm and dry. HEART: no murmurs, regular rate and rhythm. LUNGS: Crackles right base. ABDOMEN: soft, nontender. EXTREMITIES: Right lower extremity 1+ edema. PERIPHERAL PULSES: equal. NEUROLOGIC: No gross deficits, AAO X 3 Objective Labs and Meds 04/29/24 06:36 04/29/24 06:36 Lab results: Laboratory Results - last 24 hr 04/29/24 06:36 WBC 11.6 H RBC 3.09 L Hgb 9.0 L Hct 26.4 L MCV 85.4 MCH 29.1 MCHC 34.1 RDW 22.6 H Plt Count 271 MPV 10.2 Immature Gran % (Auto) 1.3 H Neut % (Auto) 81.8 H Lymph % (Auto) 7.7 L [place] % (Auto) 7.0 Eos % (Auto) 1.9 Baso % (Auto) 0.3 Lymph # (Auto) 0.9 L [place] # (Auto) 0.8 Eos # (Auto) 0.2 Baso # (Auto) 0.0 Abs Immat Gran (auto) 0.15 H Absolute Neuts (auto) 9.5 H Absolute Nucleated RBC 0.000 Nucleated RBC % (auto) 0.0 Sodium 123 L Potassium 3.4 D Chloride 80 L Carbon Dioxide 31 H Anion Gap 15 BUN 79 H Creatinine 2.06 H Estim Creat Clear Calc 29.0 Estimated GFR 31 Fasting Glucose 118 H Calcium 7.8 L Total Bilirubin 0.6 AST 45 H ALT 28 Alkaline Phosphatase 138 H Total Protein 5.3 L Albumin 3.5 Progress Note: A&P Assessment and plan (1) Acute on chronic diastolic (congestive) heart failure: Status: Acute Plan Pleasant 83 year gentleman with acute on chronic diastolic heart failure with right more than left-sided failure currently. On Torsemide 80 mg po BID (please give him 40 mg tablets at discharge). Spironolactone 25 mg BID. Metolazone 5 mg on M, W and F. Cilostazol should be discontinued at discharge due to congestive heart failure as it is contraindicated. He is not on rivaroxaban due to skin tear and bleeding as well as epistaxis. Apparently it was resumed but he bled again and currently it is on hold indefinitely. Discussions about Watchman can be done as outpatient. Thank you for allowing me to participate in the care of your patient. Please feel free to contact me if you have any questions. Time Spent With Patient Time: Total time managing care of this patient today ____ minutes. Progress Note: Quality Stroke Does the patient have a stroke diagnosis?: No Procedures Date of Service Date of Service: 04/29/24
[2024-04-29] MEDS: cefTRIAXone sodium 1 GM VIAL IVPUSH (14:08)
--- NOTE | 2024-04-29 16:35 | HO.PM.IMPN ---
Subjective Subjective Date of Service: 04/29/24 Interval History: No acute issues overnight. Mild abdominal girth increase Review of Systems Denies chest pain Denies shortness of breath Denies nausea vomiting diarrhea Denies fever chills Physical Exam Vital Signs: Vital Signs: Last Vital Signs Temp 98.7 F 04/29/24 15:33 Pulse 60 04/29/24 15:33 Resp 18 04/29/24 15:33 BP 103/53 L 04/29/24 15:33 Pulse Ox 100 04/29/24 15:33 O2 Del Method Room Air 04/29/24 15:33 O2 Flow Rate 2 04/19/24 07:42 BMI result Body Mass Index 35.5 Const: Other: Awake alert no acute distress Resp: Other: Diminished at bases but without rales rhonchi or wheezes Cardio: Other: No S4; positive S1-S2; no S3 2/6 systolic murmur GI: Other: Mild fluid wave. Bowel sounds quiet Extrem: Other: Bilateral edema Objective Data Active Medications Acetaminophen (Acetaminophen 325 Mg Tablet) 650 mg PO Q6H PRN PRN Reason: Pain, Mild (Pain Scale 1-3), fever or headache Last Admin: 04/18/24 08:56 Dose: 650 mg Documented By: JOAQUIM Allopurinol (Allopurinol 100 Mg Tablet) 100 mg PO DAILY@0900 [facility] Last Admin: 04/29/24 08:25 Dose: 100 mg Documented By: SANJAY Amiodarone HCl (Amiodarone Hcl 200 Mg Tablet) 200 mg PO DAILY@1700 [facility] Last Admin: 04/28/24 17:11 Dose: 200 mg Documented By: SANJAY Atorvastatin Calcium (Atorvastatin Calcium 40 Mg Tablet) 40 mg PO BEDTIME [facility] Last Admin: 04/28/24 21:26 Dose: 40 mg Documented By: ILSA Benzonatate (Benzonatate 100 Mg Capsule) 100 mg PO TID PRN PRN Reason: Cough Last Admin: 04/28/24 21:26 Dose: 100 mg Documented By: ILSA Calcium Carbonate (Calcium Carbonate 750 Mg Tab.Chew) 750 mg PO Q4H PRN PRN Reason: Heartburn Ceftriaxone Sodium (Ceftriaxone Sodium 1 Gm Vial) 1 gm IVPUSH Q24H [facility] Last Admin: 04/29/24 14:08 Dose: 1 gm Documented By: SANJAY Ferrous Sulfate (Ferrous Sulfate 324 Mg Tablet.) 324 mg PO DAILY@0600 [facility] Last Admin: 04/29/24 06:34 Dose: 324 mg Documented By: ILSA Finasteride (Finasteride 5 Mg Tablet) 5 mg PO DAILY@0900 [facility] Last Admin: 04/29/24 08:24 Dose: 5 mg Documented By: SANJAY Gabapentin (Gabapentin 600 Mg Tablet) 600 mg PO BEDTIME [facility] Last Admin: 04/28/24 21:26 Dose: 600 mg Documented By: ILSA Guaifenesin (Guaifenesin 200 Mg/10 Ml 10 Ml Liquid) 10 ml PO Q4H PRN PRN Reason: Cough Last Admin: 04/24/24 20:40 Dose: 10 ml Documented By: KEMI Heparin Sodium (Porcine) (Heparin Sodium,Porcine 5,000 Unit/Ml Vial) 5,000 unit SUBCUT Q8H [facility] Last Admin: 04/29/24 08:25 Dose: 5,000 unit Documented By: SANJAY Levothyroxine Sodium (Levothyroxine Sodium 88 Mcg Tablet) 88 mcg PO DAILY@0600 [facility] Last Admin: 04/29/24 06:34 Dose: 88 mcg Documented By: ILSA Loratadine (Loratadine 10 Mg Tablet) 10 mg PO DAILY [facility] Last Admin: 04/29/24 08:25 Dose: 10 mg Documented By: SANJAY Magnesium Hydroxide (Milk Of Magnesia 30 Ml Oral.Susp) 30 ml PO DAILY PRN PRN Reason: Constipation Last Admin: 04/27/24 17:08 Dose: 30 ml Documented By: HAILEY Melatonin (Melatonin 3 Mg Tablet) 6 mg PO BEDTIME PRN PRN Reason: Insomnia Last Admin: 04/28/24 21:26 Dose: 6 mg Documented By: ILSA Ondansetron HCl (Ondansetron Hcl 4 Mg/2 Ml Vial) 4 mg IVPUSH Q6H PRN PRN Reason: Nausea and Vomiting Last Admin: 04/21/24 04:58 Dose: 4 mg Documented By: ERMA Pantoprazole Sodium (Pantoprazole Sodium 20 Mg Tablet.) 40 mg PO DAILY@0630 [facility] Last Admin: 04/29/24 06:34 Dose: 40 mg Documented By: ILSA Sodium Chloride (0.9 % Sodium Chloride Flush 3 Ml Syringe) 3 ml IVFLUSH QSHIFT [facility] Last Admin: 04/29/24 08:25 Dose: 3 ml Documented By: SANJAY Spironolactone (Spironolactone 25 Mg Tablet) 25 mg PO BID@0900,1800 [facility]; Protocol Last Admin: 04/29/24 08:25 Dose: 25 mg Documented By: SANJAY Torsemide (Torsemide 20 Mg Tablet) 80 mg PO BID [facility]; Protocol Last Admin: 04/29/24 08:25 Dose: 80 mg Documented By: SANJAY Labs 04/29/24 06:36 04/29/24 06:36 Labs: Laboratory Results - last 24 hr 04/29/24 06:36 MCV 85.4 MCH 29.1 MCHC 34.1 RDW 22.6 H Plt Count 271 MPV 10.2 Immature Gran % (Auto) 1.3 H Neut % (Auto) 81.8 H Lymph % (Auto) 7.7 L [place] % (Auto) 7.0 Eos % (Auto) 1.9 Baso % (Auto) 0.3 Lymph # (Auto) 0.9 L [place] # (Auto) 0.8 Eos # (Auto) 0.2 Baso # (Auto) 0.0 Abs Immat Gran (auto) 0.15 H Absolute Neuts (auto) 9.5 H Absolute Nucleated RBC 0.000 Nucleated RBC % (auto) 0.0 Anion Gap 15 Estim Creat Clear Calc 29.0 Estimated GFR 31 Fasting Glucose 118 H Calcium 7.8 L Total Bilirubin 0.6 AST 45 H ALT 28 Alkaline Phosphatase 138 H Total Protein 5.3 L Albumin 3.5 Assessment and Plan (1) Acute on chronic diastolic (congestive) heart failure: Status: Acute (2) CKD (chronic kidney disease): Status: Acute Plan 83M PMH chf with recovered EF, cardiac arrest s/p AICD, ckd III, pafib, cad, pvd, hld, bph, kae presented with sob; significant right heart failure 1.Acute on chronic CHF with recovered ejection fraction and right-sided heart failure complicated by ascites -switched to torsemide 80 mg p.o. b.i.d. -arrange paracentesis in a.m. -hopeful DC in a.m. 2.Acute severe hypokalemia -repleted -follow renals/divalent 3.LIBRA and CKD 3 -stable; likely new baseline -follow renal/divalents 4. Abnormal LFTs -likely passive congestion 5.Paroxysmal atrial fibrillation -optimal control on current therapies -continue to hold anticoagulation hep sq DNR/DNI reason for continued hospitalization: still with fluid overload Quality Stroke Does the patient have a stroke diagnosis?: No VTE Prior VTE?: No VTE Risk Level:: Medical - moderate - high VTE Device Contraindication: Treatment Not Indicated VTE Drug Contraindication: N/A - Med Ordered
[2024-04-29] MEDS: Amiodarone HCL 200 MG TABLET PO (17:29)
[2024-04-29] MEDS: Melatonin 3 MG TABLET 6 MG PO (21:09)
[2024-04-29] MEDS: Gabapentin 600 MG TABLET PO (21:09)
[2024-04-29] MEDS: Atorvastatin Calcium 40 MG TABLET PO (21:09)
[2024-04-30] VITALS (12 sets, daily range): BP systolic 93–104; BP diastolic 41–54; PULSE 60–79; RESP 11–20; TEMP 36.5–37; O2SAT 96–100; BMI 36.4
[2024-04-30] MEDS: Heparin Sodium,Porcine 5,000 UNIT/ML VIAL 5000 UNIT SUBCUT ×2 (02:19→08:41)
[2024-04-30] MEDS: Pantoprazole Sodium 20 MG TABLET.DR 40 MG PO (06:08)
[2024-04-30] MEDS: Ferrous Sulfate 324 MG TABLET.DR PO (06:08)
[2024-04-30] MEDS: Levothyroxine Sodium 88 MCG TABLET PO (06:08)
[2024-04-30 06:27] LABS: MANUAL DIFF FLAG NO
[2024-04-30 06:39] LABS: Basophils Absolute Auto 0.1 X10*3/uL (0.0-0.2); Basophils Percent Auto 0.4 % (0-2); Eosinophils Absolute Auto 0.2 X10*3/uL (0.0-0.4); Eosinophils Percent Auto 1.6 % (0-4); Hematocrit 27.2 % (42.0-52.0); Hemoglobin 9.1 g/dl (14.0-18.0); Imm Gran Abs Auto 0.13 X10*3/uL (0.00-0.03); Imm Gran Pct Auto 1.1 % (0.0-0.4); Mean Corpuscular HGB Conc 33.5 g/dl (31.0-36.0); Mean Corpuscular Hemoglobin 29.2 pg (27.0-33.0); Mean Corpuscular Volume 87.2 fL (80.0-98.0); Mean Platelet Volume 10.1 fL (9.4-12.4); Monocytes Absolute Auto 0.9 X10*3/uL (0.1-1.2); Monocytes Percent Auto 7.6 % (2-11); Neutrophils Absolute Auto 9.6 x10*3/uL (2.0-8.3); Neutrophils Percent Auto 81.3 % (45-73); Platelet Count 279 X10*3/uL (160-400); Red Blood Count 3.12 X10*6/uL (4.60-5.80); Red Cell Distribution Width 22.7 % (11.0-16.0); White Blood Count 11.8 X10*3/uL (4.8-10.8)
[2024-04-30 07:04] LABS: Alanine Aminotransferase 21 U/L (0-40); Albumin Level 3.6 g/dL (3.5-5.0); Alkaline Phosphatase 140 U/L (39-117); Anion Gap 16 (12-20); Aspartate Amino Transferase 41 U/L (5-37); Bilirubin Total 0.6 mg/dL (0.0-1.0); Blood Urea Nitrogen 94 mg/dL (9-16); Calcium 8.5 mg/dL (8.4-10.2); Carbon Dioxide 32 mmol/L (22-29); Chloride 78 mmol/L (96-108); Creatinine Clr Calc Pharmacy 29.7; Estimated Glomerular Filt Rate 31; Glucose Fasting 130 mg/dL (60-99); Potassium 3.3 mmol/L (3.3-5.1); Sodium 123 mmol/L (135-145); Total Protein 5.5 g/dL (6.5-8.0)
--- NOTE | 2024-04-30 08:35 | P.PNNP_ITS ---
Subjective Subjective Date of Service: 04/30/24 Principal diagnosis: Decompensated congestive heart failure Interval history: 83 y/o male with medical history of cardiac arrest (03/2023), biventricular ICD in place, HFrEF, CKD3, paroxysmal afib on xarelto, CAD, PVD, asthma, GERD, gout, KEVIN on CPAP. ED on 04/12 with dyspnea, weight gain, pedal edema for past few weeks. Referred to nephrology for LIBRA on CKD3 in setting of CHF exacerbation. creatinine stable in 2's, currently 2.04 today Urine bland 03/03/24 Renal US 02/11/[address] abd/pelvis kidneys and ureters unremarkable. patient has had mild hyponatremia since 02/24/24; worsened on 04/27 to 125, 124 on 04/28 has stabilized at 123 (yesterday and today) he received 15gm urea powder yesterday spironolactone 25mg PO BID, torsemide 80mg PO BID Patient states his breathing is ok states he is urinating regularly/comfortably- UOP 3650mL last 24hr he denies other concerns/symptoms patient's abdomen is moderately distended and firm, he denies pain (receiving intermittent paracentesis every few days, albumin prior) Denies other symptoms, concerns Physical Exam 2 Vital Signs: Vital Signs: Last Vital Signs Temp 97.9 F 04/30/24 08:00 Pulse 60 04/30/24 10:25 Resp 15 04/30/24 10:25 BP 94/45 L 04/30/24 10:25 Pulse Ox 100 04/30/24 10:25 O2 Del Method Room Air 04/30/24 10:15 O2 Flow Rate 2 04/30/24 10:00 BMI result Body Mass Index 36.4 Const: General: cooperative, comfortable, alert, awake and tired appearing Nutritional Appearance: obese Orientation/consciousness: patient oriented x3 Neck: Neck: Yes trachea midline, Yes supple and Yes JVD Resp: Effort & Inspection: decreased respiratory effort Auscultation: no rales, no wheezes and diminished lung sounds Cardio: Jugular venous distension: JVD Rate: regular rate Rhythm: r egular rhythm Heart sounds: S1 normal heart sound present, S2 normal heart sound present, no click, no gallops and Murmur heart sound present GI: Inspection: Yes distended Auscultation: normal bowel sounds Skin: General skin exam: no rashes or lesions noted Neuro: General: patient oriented x3 and no focal motor deficits Extrem: General: Yes edema (trace BLE edema) Objective Data Labs 04/30/24 06:13 04/30/24 06:13 Labs: Laboratory Results - last 24 hr 04/30/24 06:13 WBC 11.8 H RBC 3.12 L Hgb 9.1 L Hct 27.2 L MCV 87.2 MCH 29.2 MCHC 33.5 RDW 22.7 H Plt Count 279 MPV 10.1 Immature Gran % (Auto) 1.1 H Neut % (Auto) 81.3 H Lymph % (Auto) 8.0 L [place] % (Auto) 7.6 Eos % (Auto) 1.6 Baso % (Auto) 0.4 Lymph # (Auto) 1.0 L [place] # (Auto) 0.9 Eos # (Auto) 0.2 Baso # (Auto) 0.1 Abs Immat Gran (auto) 0.13 H Absolute Neuts (auto) 9.6 H Absolute Nucleated RBC 0.000 Nucleated RBC % (auto) 0.0 Sodium 123 L Potassium 3.3 Chloride 78 L Carbon Dioxide 32 H Anion Gap 16 BUN 94 H Creatinine 2.04 H Estim Creat Clear Calc 29.7 Estimated GFR 31 Fasting Glucose 130 H Calcium 8.5 D Total Bilirubin 0.6 AST 41 H ALT 21 Alkaline Phosphatase 140 H Total Protein 5.5 L Albumin 3.6 Microbiology Microbiology Results: Microbiology 04/17/24 08:58 Sputum - Expectorated Gram Stain - Final 04/17/24 08:58 Sputum - Expectorated Sputum Culture - Final Achromobacter species 04/16/24 11:50 Abdominal Fluid Gram Stain - Final 04/16/24 11:50 Abdominal Fluid Routine Culture - Final No growth after 2 days 04/16/24 11:50 Abdominal Fluid Anaerobic Culture - Final NO GROWTH AFTER 5 DAYS Procedures Date of Service Date of Service: 04/30/24 Assessment & Plan Assessment and plan (1) LIBRA (acute kidney injury): Status: Acute (2) CKD (chronic kidney disease): Status: Acute (3) Acute on chronic diastolic (congestive) heart failure: Status: Acute (4) Hyponatremia: Status: Acute Plan LIBRA on CKD likely hypoperfusion in setting of heart failure exacerbation stable labs reviewed creatinine slightly up today but remains with baseline creatinine has been fluctuating with diuresis, though remains within his baseline at this time. Clinically remains fluid overloaded, recommend continuing current diuresis plan, may come with rise in creatinine which we will accept. Hyponatremia likely multifactoria, combination of heart failures and aggressive diuresis in setting of heart failure; pt serum bicarb is elevated so may have some contraction alkalosis (intravascular)- pt still remains hypervolemic with persistent mild LE edema recommend continue oral diuretics as ordered, ordered 30gm urea powder for hyponatremia recommend 1.5L/24 hour fluid restriction recommend 1x 25gm albumin infusion prior to paracentesis when needed recommend daily electrolyte and renal function studies, replace potassium as needed no indication for renal replacement at this time continue supportive care Will continue to follow- if pt is discharged to rehab, recommend needs BMP Friday to assess electrolytes and renal function Discussed with Dr Wren Time Spent With Patient Time: Total time managing care of this patient today ____ minutes. Progress Note: Quality Stroke Does the patient have a stroke diagnosis?: No
[2024-04-30] MEDS: Loratadine 10 MG TABLET PO (08:41)
[2024-04-30] MEDS: Torsemide 20 MG TABLET 80 MG PO (08:41)
[2024-04-30] MEDS: 0.9 % Sodium Chloride Flush 3 ML SYRINGE IVFLUSH (08:41)
[2024-04-30] MEDS: Spironolactone 25 MG TABLET PO (08:41)
[2024-04-30] MEDS: allopurinoL 100 MG TABLET PO (08:41)
[2024-04-30] MEDS: Finasteride 5 MG TABLET PO (08:41)
[2024-04-30] MEDS: Urea 15 GM POWDER 30 GM PO (11:20)
--- NOTE | 2024-04-30 11:22 | PM.DS ---
DS: Providers Provider Date of Service: 04/30/24 Date of admission: 04/12/24 14:35 Date of discharge: 04/30/24 Primary care physician: Prince Manning MD Consults: 04/13/24 09:24 Consult to Nephrology Routine Consulting Provider: [facility] Reason for consultation: normocytic anemia,chf in setting of ckd Has provider been notified: No 04/13/24 09:45 Consult to Cardiology Routine Consulting Provider: [facility] Reason for consultation: Chf 04/16/24 13:51 Consult to Gastroenterology Routine Consulting Provider: [facility] Reason for consultation: acitis ,sbp /elevated bilirubin , anemia Has provider been notified: No 04/20/24 14:01 Consult to Wound Care Routine Reason for consultation: stage 2 pressure injury coccyx DS: Diagnosis Discharge Diagnosis (1) LIBRA (acute kidney injury): Status: Acute (2) CKD (chronic kidney disease): Status: Acute (3) Acute on chronic diastolic (congestive) heart failure: Status: Acute (4) Hyponatremia: Status: Acute DS: Summary Hospital Course Hospital Course: 83-year-old male with a past medical history significant for cardiac arrest (03/2023) s/p biventricular ICD in place, HFrEF, CKD3, paroxysmal a fib on xarelto, CAD, PVD unspecified asthma, GERD, gout and KEVIN on nasal CPAP presented to the ED today with worsening shortness of breath, dyspnea, weight gain and pedal edema for the past few weeks. He was discharged on 02/20 for a CHF exacerbation and spironolactone and metolazone. Outpatient follow-up the discontinue the spironolactone due to hypotension however he continues to take Bumex 4 mg daily and metolazone 2.5 mg daily as needed. He reports he has been taking his medications as prescribed however his symptoms persist. He reports he went from 169 lb to 193 lb. He did have a productive cough this morning with white sputum. No headache, fever, chills, nausea, vomiting, constipation, diarrhea, nasal congestion or any sick contacts recently. Hospital Course Patient admitted to telemetry and seen in consultation by both Cardiology and Nephrology. Initially started on Bumex drip as per Cardiology and this was adjusted to maintain adequate output. Fluid balance at discharge -18 L. patient also underwent multiple therapeutic paracentesis during this admission, last being today for 2 L. this will likely be a recurrent and therapeutic procedure for him. He was seen in consultation by renal for hyponatremia and treated with various modalities including fluid restriction and most recently urea. At this time sodium ranged 123 through 129. He will need electrolytes drawn 05/[address] Wren. At this time he is medically acceptable for transfer to outpatient rehab Time Attestation Discharge Coordination Time (in mins): 35 Quality: Safe Use of Opioids Does Pt have an Active Cancer Diagnosis on the Problem List?: No Quality: Stroke Does the patient have a stroke diagnosis?: No Physical Exam Vital Signs: Vital Signs: Last Vital Signs Temp 97.9 F 04/30/24 08:00 Pulse 60 04/30/24 10:25 Resp 15 04/30/24 10:25 BP 94/45 L 04/30/24 10:25 Pulse Ox 100 04/30/24 10:25 O2 Del Method Room Air 04/30/24 10:15 O2 Flow Rate 2 04/30/24 10:00 BMI result Body Mass Index 36.4 Const: Other: Awake alert no acute distress Resp: Other: Diminished at bases but without rales rhonchi or wheezes Cardio: Other: No S4; positive S1-S2; no S3 2/6 systolic murmur GI: Other: Mild fluid wave. Bowel sounds quiet Extrem: Other: Bilateral edema DS: Data Data Completed and Pending Completed studies during hospitalization [Text1]: Pending at discharge 04/16/24 08:54 Cytology [PTH] Routine Procedures Assistance with Respiratory Ventilation, Less than 24 Consecutive Hours, Continuous Positive Airway Pressure (02/18/24) Labs on day of discharge: Laboratory Results - last 24 hr 04/30/24 06:13 WBC 11.8 H RBC 3.12 L Hgb 9.1 L Hct 27.2 L MCV 87.2 MCH 29.2 MCHC 33.5 RDW 22.7 H Plt Count 279 MPV 10.1 Immature Gran % (Auto) 1.1 H Neut % (Auto) 81.3 H Lymph % (Auto) 8.0 L [place] % (Auto) 7.6 Eos % (Auto) 1.6 Baso % (Auto) 0.4 Lymph # (Auto) 1.0 L [place] # (Auto) 0.9 Eos # (Auto) 0.2 Baso # (Auto) 0.1 Abs Immat Gran (auto) 0.13 H Absolute Neuts (auto) 9.6 H Absolute Nucleated RBC 0.000 Nucleated RBC % (auto) 0.0 Sodium 123 L Potassium 3.3 Chloride 78 L Carbon Dioxide 32 H Anion Gap 16 BUN 94 H Creatinine 2.04 H Estim Creat Clear Calc 29.7 Estimated GFR 31 Fasting Glucose 130 H Calcium 8.5 D Total Bilirubin 0.6 AST 41 H ALT 21 Alkaline Phosphatase 140 H Total Protein 5.5 L Albumin 3.6 Discharge Plan Discharge Anticipated Discharge Date/Time: 04/30/24 11:06 Patient Disposition: Xfer SNF Discharge Diagnosis: Acute on chronic systolic right heart failure Referrals: [facility] [Outside] - 1 Day (SHORT TERM REHAB) Prince Manning MD [Primary Care Provider] - 1 Week Discharge Medications: New torsemide 20 mg Tablet 80 mg PO BID Qty: 240 0RF Protocol: Hold for SBP< HOLD for SBP < : 90 spironolactone 25 mg Tablet 25 mg PO BID@0900,1800 Qty: 30 0RF Protocol: Hold for SBP< HOLD for SBP < : 90 urea 15 gram powder in packet 1 packet PO DAILY 14 Days Qty: 14 0RF Continued magnesium oxide 400 mg magnesium tablet 400 mg PO BID 90 Days Qty: 180 1RF amiodarone 200 mg tablet 200 mg PO DAILY@1700 Qty: 90 3RF Xarelto 15 mg tablet 15 mg PO DAILY@1700 Qty: 90 3RF Rx Instructions: must administer with evening meal gabapentin 600 mg tablet 600 mg PO BEDTIME 90 Days Qty: 90 1RF atorvastatin 40 mg tablet 40 mg PO BEDTIME Qty: 90 3RF potassium chloride [Klor-Con M20] 20 mEq tablet,ER particles/crystals 40 meq PO DAILY Qty: 180 1RF allopurinol 100 mg tablet 100 mg PO DAILY@0900 levothyroxine 88 mcg tablet 88 mcg DAILY@0600 metolazone 2.5 mg tablet 2.5 mg PO DAILY PRN (Reason: Edema) pantoprazole 40 mg tablet,delayed release (DR/EC) 40 mg PO DAILY@0630 finasteride 5 mg tablet 5 mg PO DAILY@0900 cilostazol 50 mg tablet 50 mg PO BID lorazepam 0.5 mg tablet 0.5 mg PO DAILY PRN (Reason: Anxiety) ferrous sulfate 325 mg (65 mg iron) tablet,delayed release (DR/EC) 325 mg PO DAILY@0600 Discontinued torsemide 20 mg tablet 80 mg PO DAILY 30 Days Qty: 120 5RF Discharge Orders: Discharge Order (Routine); Ordered 04/30/24 Ordered By: Seven Spain Diet: Advance to usual diet Activity on Discharge: As tolerated Stand Alone Forms: Patient Portal Discharge page Print Language: Wolof Care Plan Goals: Continue all medications as ordered. Urea 15 g daily has been added for 2 weeks. Will need follow-up chemistries Friday; can call Dr. Wren at [facility] to discuss further treatment. Will need follow up with Dr. [phone] Health Concerns: On the day of discharge paracentesis was done and will likely need follow up paracentesis. They can be arrange outpatient through Interventional Radiology at [facility] Plan of Treatment: Further plans as per receiving facility Assessment: See discharge summary
--- NOTE | 2024-04-30 11:31 | MHC.CM.PN ---
PT MEDICALLY CLEARED FOR DC TO STR AT [facility] FOR BLS TRANSPORT AT 12PM, DTR QASIM NOTIFIED.
--- NOTE | 2024-05-12 08:41 | P.CDIM_ITS ---
PROVIDER RESPONSE TEXT: To clarify, the appropriate diagnosis supported by the clinical indicators: Deep Tissue Injury coccyx: suspected QUERY TEXT: PHYSICIAN'S DOCUMENTATION REQUEST Date of Query: 04/29/2024 10:00 AM EST Patient Name: Sherman Hurtado Admit Date: 04/12/2024 Dear Seven Spain DO, A review of the medical record indicates additional documentation may be needed. Please review below and update the documentation accordingly. Clinical Indicators: Wound care nursing assessment dated 04/29 - Deep tissue injury coccyx Foam dressing-off loaded with pillows one side at time. Based on the above, could you please provide further information regarding the ulcer/wound/injury: Deep Tissue Injury coccyx Possible, probable, suspected, etc. Other (explain) Clinically unable to determine (explain) Thank you, Xenia Boles, CCS, CDIS Use of terms such as suspected, likely, concern for, or probable (associated with a specific diagnosi s that is being evaluated, monitored, or treated as if it exists) are acceptable and can be coded in the inpatient se tting, when documented at the time of discharge. Please use your independent medical judgment in providing your response. THIS QUERY IS PART OF THE PERMANENT MEDICAL RECORD
== END 2024-04-30 12:15 | disposition skilled nursing facility (03) | DRG 292 ==
LOC: HO.ED 14:05 → HO.EDOVER 14:41 → HO.IMC 17:11
PROVIDERS: Internal Medicine; Internal Medicine Gastroenterology; Nurse Practitioner Family; Physician Assistant Surgical; Registered Nurse Emergency; Student in an Organized Health Care Education/Training Program; Admitting Provider Physician Assistant; Emergency Provider Emergency Medicine; PCP Internal Medicine Sports Medicine; Visit Provider Hospitalist
DX: I50.33 Acute on chronic diastolic (congestive) heart failure (principal); E87.1 Hypo-osmolality and hyponatremia; N17.9 Acute kidney failure, unspecified; D63.1 Anemia in chronic kidney disease; I25.10 Atherosclerotic heart disease of native coronary artery without angina pectoris; I48.0 Paroxysmal atrial fibrillation; E87.6 Hypokalemia; K21.9 Gastro-esophageal reflux disease without esophagitis; N18.30 Chronic kidney disease, stage 3 unspecified; N40.0 Benign prostatic hyperplasia without lower urinary tract symptoms; I08.3 Combined rheumatic disorders of mitral, aortic and tricuspid valves; R04.0 Epistaxis; I50.811 Acute right heart failure; Z66 Do not resuscitate; T45.515A Adverse effect of anticoagulants, initial encounter; E61.1 Iron deficiency; M10.9 Gout, unspecified; I27.20 Pulmonary hypertension, unspecified; Z95.810 Presence of automatic (implantable) cardiac defibrillator; L89.156 Pressure-induced deep tissue damage of sacral region; Z95.1 Presence of aortocoronary bypass graft; Z20.822 Contact with and (suspected) exposure to COVID-19; Z86.74 Personal history of sudden cardiac arrest; Z79.01 Long term (current) use of anticoagulants; Z79.890 Hormone replacement therapy; Z79.899 Other long term (current) drug therapy
CPT/HCPCS: 0241U; 36415; 49083; 71045; 74176; 80048; 80053; 80076; 82042; 82247; 82248; 82272; 82533; 82607; 82728; 82746; 82803; 82947; 83540; 83615; 83690; 83735; 83880; 83883; 83986; 84132; 84145; 84300; 84484; 85014; 85018; 85025; 85027; 85610; 85730; 86335; 86381; 86704; 86706; 86803; 86850; 86900; 86901; 86923; 87070; 87073; 87077; 87186; 87205; 87340; 87633; 88112; 88305; 89051; 93005; 93308; 94640; 94660; 97110; 97116; 97162; 99285; C1729; J0696; J1644; J1939; J1940; J2003; J2405; J3480; P9016; P9047

== ENCOUNTER → 2024-04-12 10:00 | Outpatient (BNV) | payer MEDICARE, SELFPAY | PROVIDERS: Admitting Provider Physician Assistant; Emergency Provider Emergency Medicine; PCP Internal Medicine Sports Medicine; Visit Provider Internal Medicine | DX: R06.02 Shortness of breath (principal); Z95.0 Presence of cardiac pacemaker; R94.31 Abnormal electrocardiogram [ECG] [EKG] | CPT/HCPCS: 93010 ==

== ENCOUNTER 2024-04-12 14:35 | Outpatient (BNV) | payer MEDICARE, SELFPAY | END 2024-04-21 15:44 | PROVIDERS: Admitting Provider Physician Assistant; Emergency Provider Emergency Medicine; PCP Internal Medicine Sports Medicine; Visit Provider Physician Assistant Surgical | DX: R18.8 Other ascites (principal) | CPT/HCPCS: 49083 ==

== ENCOUNTER 2024-04-12 14:35 | Outpatient (BNV) | payer MEDICARE, SELFPAY | END 2024-04-16 11:00 | PROVIDERS: Admitting Provider Physician Assistant; Emergency Provider Emergency Medicine; PCP Internal Medicine Sports Medicine; Visit Provider Physician Assistant Surgical | DX: R18.8 Other ascites (principal) | CPT/HCPCS: 49083 ==

== ENCOUNTER 2024-04-12 14:35 | Outpatient (BNV) | payer MEDICARE, SELFPAY | END 2024-04-19 14:30 | PROVIDERS: Admitting Provider Physician Assistant; Emergency Provider Emergency Medicine; PCP Internal Medicine Sports Medicine; Visit Provider Physician Assistant Surgical | DX: R18.8 Other ascites (principal) | CPT/HCPCS: 49083 ==

== ENCOUNTER 2024-04-12 14:35 | Outpatient (BNV) | payer MEDICARE, SELFPAY | END 2024-04-30 09:30 | PROVIDERS: Admitting Provider Physician Assistant; Emergency Provider Emergency Medicine; PCP Internal Medicine Sports Medicine; Visit Provider Physician Assistant Surgical | DX: R18.8 Other ascites (principal) | CPT/HCPCS: 49083 ==

== ENCOUNTER 2024-04-12 14:35 | Outpatient (BNV) | payer MEDICARE, SELFPAY | END 2024-04-26 11:45 | PROVIDERS: Admitting Provider Physician Assistant; Emergency Provider Emergency Medicine; PCP Internal Medicine Sports Medicine; Visit Provider Physician Assistant Surgical | DX: R18.8 Other ascites (principal) | CPT/HCPCS: 49083 ==

== ENCOUNTER 2024-04-12 14:35 | Outpatient (BNV) | payer MEDICARE, SELFPAY | END 2024-04-23 12:07 | PROVIDERS: Admitting Provider Physician Assistant; Emergency Provider Emergency Medicine; PCP Internal Medicine Sports Medicine; Visit Provider Physician Assistant Surgical | DX: R18.8 Other ascites (principal) | CPT/HCPCS: 49083 ==

== ENCOUNTER 2024-04-12 14:35 | Outpatient (BNV) | payer MEDICARE, SELFPAY | END 2024-04-21 12:00 | PROVIDERS: Admitting Provider Physician Assistant; Emergency Provider Emergency Medicine; PCP Internal Medicine Sports Medicine; Visit Provider Internal Medicine Cardiovascular Disease | DX: I50.810 Right heart failure, unspecified (principal) | CPT/HCPCS: 93308 ==

== ENCOUNTER → 2024-04-12 14:35 | Outpatient (BNV) | payer MEDICARE, SELFPAY | PROVIDERS: Admitting Provider Physician Assistant; Emergency Provider Emergency Medicine; PCP Internal Medicine Sports Medicine; Visit Provider Internal Medicine Gastroenterology | DX: R74.01 Elevation of levels of liver transaminase levels (principal); D50.9 Iron deficiency anemia, unspecified | CPT/HCPCS: 99222 ==

== ENCOUNTER → 2024-04-12 14:35 | Outpatient (BNV) | payer MEDICARE, SELFPAY | PROVIDERS: Admitting Provider Physician Assistant; Emergency Provider Emergency Medicine; PCP Internal Medicine Sports Medicine; Visit Provider Nurse Practitioner Family | DX: N17.9 Acute kidney failure, unspecified (principal); N18.30 Chronic kidney disease, stage 3 unspecified; I50.33 Acute on chronic diastolic (congestive) heart failure; E87.1 Hypo-osmolality and hyponatremia | CPT/HCPCS: 99222; 99232 ==

== ENCOUNTER → 2024-04-12 14:35 | Outpatient (BNV) | payer MEDICARE, SELFPAY | PROVIDERS: Admitting Provider Physician Assistant; Emergency Provider Emergency Medicine; PCP Internal Medicine Sports Medicine; Visit Provider Physician Assistant | DX: I50.43 Acute on chronic combined systolic (congestive) and diastolic (congestive) heart failure (principal) | CPT/HCPCS: 99223; 99232; 99233; 99239 ==

== ENCOUNTER → 2024-04-12 14:35 | Outpatient (BNV) | payer MEDICARE, SELFPAY | PROVIDERS: Admitting Provider Physician Assistant; Emergency Provider Emergency Medicine; PCP Internal Medicine Sports Medicine; Visit Provider Internal Medicine | DX: I50.33 Acute on chronic diastolic (congestive) heart failure (principal) | CPT/HCPCS: 99223; 99233 ==

== ENCOUNTER → 2024-05-15 23:59 | Outpatient (BNV) | payer MEDICARE, SELFPAY ==
--- NOTE | 2024-05-19 19:08 | MHC.OFFVIS ---
Intake Visit Reasons: Remote HF monitoring-[employer] Allergies doxycycline Allergy (Unknown, Verified 04/12/24 09:57) Unknown narcotics Adverse Reaction (Uncoded 02/18/24 14:29) Nausea and Vomiting, hypotensive PFSH Medical History Iron deficiency anemia Elevated LFTs CKD (chronic kidney disease) Hyponatremia LIBRA (acute kidney injury) Ischemic cardiomyopathy History of torsades de pointes Atherosclerotic cardiovascular disease Elevated serum creatinine Biventricular ICD (implantable cardioverter-defibrillator) in place Syncope RBBB PVD (peripheral vascular disease) Hx of thyroid nodule GERD (gastroesophageal reflux disease) CAD (coronary artery disease) BPH (benign prostatic hyperplasia) Asthma Atrial fibrillation Surgical History Hx of CABG Hx of cardiac cath H/O right knee surgery H/O heart surgery Family History Mother Breast cancer Father Heart attack Brother Stomach cancer Brother Heart disease Social History Household Members: None Housing: House Do you presently have visiting nurse or other home services: Yes (cleaning lady) Alcohol intake: former Comment: pt refusing red socks, alarms, and camera Patient Tobacco Use Status: Former Tobacco user Years Smoked: 25 +/- Advance Directives Date on File: 10/31/23 service: Yes Office Procedures Cardiac Device Check Cardiac Device Check Details: Date of service- 05/15/2024; based on impedance data and physiological variables, there is no evidence of worsening congestive heart failure. [id number] Cardiac Device Interrogation, cardio physiologic monitor Procedure code (CPT) selection complete Assessment & Plan Assessment & Plan (1) Biventricular ICD (implantable cardioverter-defibrillator) in place: Code(s): Z95.810 - Presence of automatic (implantable) cardiac defibrillator Category: Medical (2) Chronic combined systolic and diastolic CHF (congestive heart failure): Code(s): I50.42 - Chronic combined systolic (congestive) and diastolic (congestive) heart failure Category: Medical Plan x Coding Level of Care Code Procedure Only Diagnoses Biventricular ICD (implantable cardioverter-defibrillator) in place Z95.810 Chronic combined systolic and diastolic CHF (congestive heart failure) I50.42 CPT Codes Cardiac Device Check - Cardiac Device 15: [id number] Cardiac Device Interrogation, cardio physiologic monitor ([id number])
== END ==
PROVIDERS: PCP Internal Medicine Sports Medicine; Visit Provider Internal Medicine
DX: I50.42 Chronic combined systolic (congestive) and diastolic (congestive) heart failure (principal); Z95.810 Presence of automatic (implantable) cardiac defibrillator
CPT/HCPCS: 93297

== ENCOUNTER 2024-05-19 14:43 | Outpatient (AMB) | payer MEDICARE, SELFPAY ==
[2024-05-19 14:45] VITALS: BP 112/50; PULSE 80; BMI 27.3
--- NOTE | 2024-05-19 14:45 | A.OFFVIS_ITS ---
Vital Signs 05/19/24 14:45 Height 5 ft 4 in Weight 159 lb 2.78 oz BMI 27.3 BP 112/50 L Blood Pressure Location Lt brachial Position Sitting Pulse 80 Intake Visit Reasons: 3 mth f/up Accompanied by: Spouse Allergies doxycycline Allergy (Unknown, Verified 04/12/24 09:57) Unknown narcotics Adverse Reaction (Uncoded 02/18/24 14:29) Nausea and Vomiting, hypotensive Medication List - Last Reconciled 05/19/24 by Evangelista Asher MD allopurinol 100 mg PO DAILY@0900 amiodarone 200 mg PO DAILY@1700 atorvastatin 40 mg PO BEDTIME ferrous sulfate 325 mg PO DAILY@0600 finasteride 5 mg PO DAILY@0900 gabapentin 600 mg PO BEDTIME 90 days levothyroxine 88 mcg DAILY@0600 lorazepam 0.5 mg PO DAILY PRN magnesium oxide 400 mg PO BID 90 days metolazone 2.5 mg PO DAILY PRN pantoprazole 40 mg PO DAILY@0630 potassium chloride ER 40 mEq PO DAILY rivaroxaban (Xarelto) 15 mg PO DAILY@1700 spironolactone 25 mg See Protocol PO BID@0900,1800 torsemide 80 mg See Protocol PO BID urea 1 packet PO DAILY 14 days HPI Comments Details: Sherman returns for follow-up regarding congestive heart failure. To recall, in May 2023, he traveled to [place] for a visit and in that setting, he had cardiac arrest. There was bystander CPR and AED shocks and then return of spontaneous circulation. Then taken to hospital and appropriately managed. In the hospital, rhythm was apparently ventricular fibrillation. Then he underwent left heart catheterization, but that showed no significant findings and he had patent grafts. He was also in congestive heart failure and was on diuretic drips and dobutamine drips as well. Eventually, he underwent a BiV ICD and then discharged. While in cardiac rehab, he had an episode of polymorphic VT. Has been on amiodarone since that time. No recurrent arrhythmias. Over the last several months, lot of heart failure issues. Recently discharged after a similar admission. Currently on a combination of torsemide, spironolactone. Seems to be stable for the last few weeks. Breathing is at baseline. He is not on guideline based medical therapy including beta-blockers, Entresto because of low blood pressure. He has also had some epistaxis but he is back on Xarelto. [facility] Medical History Iron deficiency anemia Elevated LFTs CKD (chronic kidney disease) Hyponatremia LIBRA (acute kidney injury) Ischemic cardiomyopathy History of torsades de pointes Atherosclerotic cardiovascular disease Elevated serum creatinine Biventricular ICD (implantable cardioverter-defibrillator) in place Syncope RBBB PVD (peripheral vascular disease) Hx of thyroid nodule GERD (gastroesophageal reflux disease) CAD (coronary artery disease) BPH (benign prostatic hyperplasia) Asthma Atrial fibrillation Surgical History Hx of CABG Hx of cardiac cath H/O right knee surgery H/O heart surgery Family History Mother Breast cancer Father Heart attack Brother Stomach cancer Brother Heart disease Social History Household Members: None Housing: House Do you presently have visiting nurse or other home services: Yes (cleaning lady) Alcohol intake: former Comment: pt refusing red socks, alarms, and camera Patient Tobacco Use Status: Former Tobacco user Years Smoked: 25 +/- Advance Directives Date on File: 10/31/23 service: Yes Review of Systems Const Denies chills, Denies fatigue, Denies fever(s), Denies weight gain and Denies weight loss ENT Denies dizziness Card Denies chest pain, Denies leg edema, Denies lightheadedness, Denies palpitations, Denies dyspnea on exertion, Denies orthopnea and Denies other Resp Denies cough and Denies dyspnea on exertion GI Denies hematochezia and Denies change in stool character Musc Denies abnormal gait, Denies muscle weakness, Denies numbness, Denies radiating pain into limb and Denies tingling Neuro Denies abnormal gait, Denies dizziness, Denies numbness and Denies tingling Endo Denies fatigue and Denies palpitations Physical Exam Vital Signs: BMI result Body Mass Index 27.3 Const General: comfortable and no acute distress Orientation/consciousness: patient oriented x3 HEENT Other: Unremarkable Head: Yes normal to inspection Neck Neck: Yes normal visual inspection Chest Chest palpation & inspection: normal inspection of the chest Resp Auscultation: clear to auscultation bilaterally Cardio Palpation: normal PMI Heart sounds: S1 normal heart sound present, S2 normal heart sound present, no gallops, no murmurs and no rubs GI Palpation (GI): Soft to palpation Back/Spine/Pelvis Other: unremarkable Skin General skin exam: no rashes or lesions noted Neuro General: patient oriented x3 Extrem General: Yes normal to inspection Psych Mental Status: mental status grossly normal Office Procedures EKG Details: EKG with AV dual paced rhythm at 80/Min. [id number], Complete Assessment & Plan Assessment & Plan (1) Chronic combined systolic and diastolic CHF (congestive heart failure): Code(s): I50.42 - Chronic combined systolic (congestive) and diastolic (congestive) heart failure Category: Medical Plan: Continue torsemide/spironolactone with the current dose. He is off beta-blockers, Entresto, Jardiance because of hypotension. CardioMEMS has been discussed in the past but not interested. (2) Atherosclerotic cardiovascular disease: Code(s): I25.10 - Atherosclerotic heart disease of [place] coronary artery without angina pectoris Category: Medical Plan: In the cardiac catheterization in 05/2023-heavily calcified and occluded left main, LAD, circumflex and right coronary arteries. Patent SHANE to LAD graft, SVG to OM branch of circumflex, SVG to PDA branch of RCA. He does not have any overt angina. The ventricular arrhythmias could be ischemic but as the grafts were wide open, do not see any obvious targets. Continue statins. Off Ranexa as well as there were some side effects but not clear if it is true side effect as it was leg swelling. (3) Ventricular tachycardia: Code(s): I47.20 - Ventricular tachycardia, unspecified Category: Medical Plan: ICD shock; polymorphic VT while in cardiac rehab. Now on amiodarone. Continue. (4) Biventricular ICD (implantable cardioverter-defibrillator) in place: Code(s): Z95.810 - Presence of automatic (implantable) cardiac defibrillator Category: Medical Plan: Normally functioning and being monitored remotely. (5) Atrial fibrillation: Code(s): I48.91 - Unspecified atrial fibrillation Category: Medical Plan: Continue amiodarone and anticoagulation. He has had issues with epistaxis. If this recurs, consider Watchman but he may not agree. Plan Discussed with daughter who came for appointment. Medications: Changed From potassium chloride ER 20 mEq PO DAILY 7 tabs 0RF To potassium chloride ER 40 mEq PO DAILY Seven Spain DO From torsemide 80 mg See Protocol PO BID 240 tabs 0RF To torsemide 80 mg in the AM; 40 mg in the PM 80 mg See Protocol PO BID 240 tabs 0RF Evangelista Asher MD Coding Level of Care Code Est Pt Level 4 (11485) Diagnoses Chronic combined systolic and diastolic CHF (congestive heart failure) I50.42 Atherosclerotic cardiovascular disease I25.10 Ventricular tachycardia I47.20 Biventricular ICD (implantable cardioverter-defibrillator) in place Z95.810 Atrial fibrillation I48.91 CPT Codes EKG - CPT: 26470-[id number], Complete ([id number])
--- OUTSIDE RECORDS SUMMARY | 2024-05-25 20:53 | XMS_ITS | Continuity of Care Document ---
Author Organization [facility] Address [address] [place] [address]- Care Team Providers Care Recyclable Materials Collector Name Role Phone Prince Manning MD Primary Care Physician Encounter [facility] R [id number] Date(s): 03/24/24 - 05/20/24 [facility] [address] [place], [place] [address] Attending Physician: Prince Manning MD Encounter Type: Pre Office Visit Allergies, Adverse Reactions, Alerts No Known Allergies Immunizations Given and Recorded Vaccine Date Status Refusal Reason influenza virus vaccine, inactivated 02/20/24 Dom rded influenza virus vaccine, inactivated 03/27/23 Dom rded influenza virus vaccine, inactivated 03/15/22 Dom rded influenza virus vaccine, inactivated 02/17/21 Dom rded influenza virus vaccine, inactivated 02/04/20 Dom rded influenza virus vaccine, inactivated 02/26/19 Dom rded influenza virus vaccine, inactivated 03/13/18 Dom rded influenza virus vaccine, inactivated 02/28/17 Dom rded influenza virus vaccine, inactivated 02/19/16 Dom rded influenza virus vaccine, inactivated 04/09/15 Dom rded SARS-CoV-2(COVID-19)mRNA-LNP vac([id number]) 03/27/23 Recorded tetanus/diphtheria/pertussis, acel(Tdap) 1 10/21/22 Recorded tetanus/diphtheria/pertussis, acel(Tdap) 10/21/22 Recorded [id number] 12y+ bivalent booster vax 03/15/22 Recorded SARS-CoV-2 mRNA ([id number]) vax 09/13/21 Recorded SARS-CoV-2 (COVID-19) mRNA BNT-162b2 vac 03/14/21 Recorded SARS-CoV-2 (COVID-19) mRNA BNT-162b2 vac 08/14/20 Given SARS-CoV-2 (COVID-19) mRNA BNT-162b2 vac 07/24/20 Recorded Influenza Virus Vaccine (oldterm) 2 02/17/21 Recor ded Influenza Virus Vaccine (oldterm) 3 02/04/20 Recor ded Zoster Vaccine Live 4 02/26/19 Recorded Zoster Vaccine Live 5 01/05/19 Recorded zoster vaccine, inactivated 02/26/19 Recorded zoster vaccine, inactivated 01/05/19 Recorded 1Result Comment: Unit: Unknown Route: Intramuscular Radiologic Therapist: GlaxOrSenseithCyPhy Worksine 2Result Comment: Unit: Unknown Route: Intramuscular Radiologic Therapist: Likva Pasteur 3Result Comment: Unit: Unknown Route: Intramuscular Radiologic Therapist: Seqirus 4Result Comment: Unit: Unknown Route: Intramuscular Radiologic Therapist: [id number] 5Result Comment: Unit: Unknown Route: Intramuscular Radiologic Therapist: [id number] Medications allopurinol 100 mg oral tablet 100 mg, 1, tablet, By Mouth, Daily, # 90 tablet, Refills 0, Maintenance, 08/04/23 2:29:00 PM EST, Partial fill upon patient request if the prescription is for a schedule II opioid drug. Start Date: 08/04/23 Status: Ordered Quantity: 90.0 Unit: tablet Repeat number: 1 amiodarone 200 mg oral tablet 400 mg, 2, tablet, By Mouth, 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, care consultant, Refills 0, Maintenance, 03/30/24 1:54:00 PM EDT, Partial fill upon patient request if the prescription is for a schedule II opioid drug. Start Date: 03/30/24 Status: Ordered Repeat number: 1 atorvastatin 40 mg oral tablet 1 tablet = 40 mg, By Mouth, Daily at bedtime, # 90 tablet, 0 Refills, Maintenance, 06/25/21 10:30:00AM EST, Tablet, Partial fill upon patient request if the prescription is for a schedule II opioid drug. Start Date: 06/25/21 Status: Ordered Quantity: 90.0 Unit: tablet Repeat number: 1 bumetanide 1 mg oral tablet 1 mg, 1, tablet, By Mouth, Daily, PRN, # 30 tablet, Refills 0, Maintenance, edema, weight gain, 08/04/23 2:43:00 PM EST, Partial fill upon patient request if the prescription is for a schedule II opioid drug. Start Date: 08/04/23 Status: Ordered Quantity: 30.0 Unit: tablet Repeat number: 1 Calcium 600 +D = 500 mg, By Mouth, 0 Refills, Maintenance, 03/21/15 10:47:08 AM EDT Start Date: 03/21/15 Status: Ordered Repeat number: 1 cilostazol 50 mg oral tablet 1 tablet, By Mouth, 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, # 180 tablet, 3 Refills, Maintenance, 11/03/23 10:45:00 AM EDT, [facility] WBP, 161.5, cm, 09/15/23 14:00:00 EDT, Height, 96.8, kg, 05/16/23 9:57:00 EST, Dry Weight Start Date: 11/03/23 Status: Ordered Quantity: 180.0 Unit: tablet Repeat number: 1 colchicine 0.6 mg oral capsule See Instructions, 2 caps PO at onset of gout flare, then 1 cap PO one hour later, followed by 1 capPO BID until gout flare resolves, # 60 capsule, 1 Refills, Maintenance, 04/12/21 4:16:00 PM EDT, Capsule, [facility] #[id number], Partial fill upon patient request if the prescription is for a schedule II opioid drug., 163, cm, 04/10/21 14:38:00 EDT, Height, 99.6, kg, 11/19/19 17:41:00 EDT, Dry Weight Start Date: 04/12/21 Status: Ordered Quantity: 60.0 Unit: capsule Repeat number: 2 ferrous sulfate 325 mg oral enteric coated tablet 325 mg, 1, tablet, By Mouth, Daily, # 30 tablet, Refills 2, Tot. Refills 2, Maintenance, 01/30/24 5:37:00 PM EDT, Route to Pharmacy Electronically, [facility] #[id number], Partial fill upon patient request if the prescription is for a schedule II opioid drug., 161.5, cm, 01/22/24 14:52:00 EDT, Height, 88.5, kg, 01/22/24 14:52:00 EDT, Dry Weight Start Date: 01/30/24 Status: Ordered Quantity: 30.0 Unit: tablet Repeat number: 3 finasteride 5 mg oral tablet 1 tablet = 5 mg, By Mouth, Daily, 0 Refills, Maintenance, 03/21/15 10:44:55 AM EDT Start Date: 03/21/15 Status: Ordered Repeat number: 1 gabapentin 600 mg oral tablet 1 tablet = 600 mg, By Mouth, Daily, 0 Refills, Maintenance, 11/14/23 10:32:00 AM EDT, Partial fill upon patient request if the prescription is for a schedule II opioid drug. Start Date: 11/14/23 Stop Date: 02/12/24 Status: Ordered Repeat number: 1 levothyroxine 0.088 mg oral tablet 1 tablet = 88 mcg, By Mouth, Daily in AM, # 90 tablet, 1 Refills, Maintenance, 03/30/24 2:05:00 PM EDT, Tablet, [facility], Partial fill upon patient request if the prescription is for a schedule II opioid drug., 161.5, cm, 02/09/24 12:01:00 EDT, Height, 99.7, kg, 02/09/24 12:01:00 EDT, Dry Weight Start Date: 03/30/24 Status: Ordered Quantity: 90.0 Unit: tablet Repeat number: 2 LORazepam 0.5 mg oral tablet 1 tablet = 0.5 mg, By Mouth, Daily, PRN for anxiety, checked masspat, # 30 tablet, 0 Refills, Maintenance, 02/09/24 1:19:00 PM EDT, Tablet, [facility], Partial fill upon patientrequest if the prescription is for a schedule II opioid drug., 161.5, cm, 02/09/24 12:01:00 EDT, Height, 99.7, kg, 02/09/24 12:01:00 EDT, Dry Weight Start Date: 02/09/24 Status: Ordered Quantity: 30.0 Unit: tablet Repeat number: 1 Metoprolol Succinate ER 25 mg oral tablet, extended release 0.5 tablet = 12.5 mg, By Mouth, Daily, # 30 tablet, 0 Refills, Maintenance, 08/04/23 2:40:00 PM EST,ER Tablet, Partial fill upon patient request if the prescription is for a schedule II opioid drug. Start Date: 08/04/23 Status: Ordered Quantity: 30.0 Unit: tablet Repeat number: 1 nitroglycerin 0.4 mg sublingual tablet 1 tablet = 0.4 mg, Sublingual, Every 5 minutes, PRN for chest pain, # 100 tablet, 0 Refills, Maintenance, 11/14/23 10:33:00 AM EDT, Tablet, Partial fill upon patient request if the prescription is fora schedule II opioid drug. Start Date: 11/14/23 Status: Ordered Quantity: 100.0 Unit: tablet Repeat number: 1 Nitrostat 0.4 mg sublingual tablet 1 tablet = 0.4 mg, Sublingual, Every 5 minutes, PRN for chest pain, # 100 tablet, 0 Refills, Maintenance, 07/05/16 9:04:59 AM EST, Tablet Start Date: 07/05/16 Status: Ordered Quantity: 100.0 Unit: tablet Repeat number: 1 pantoprazole 40 mg oral delayed release tablet 1 tablet, By Mouth, 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, # 180 tablet, 3 Refills, Maintenance, 03/29/24 10:53:00 AM EDT, 161.5, cm, 02/09/24 12:01:00 EDT, Height, 99.7, kg, 02/09/24 12:01:00 EDT, Dry Weight Start Date: 03/29/24 Status: Ordered Quantity: 180.0 Unit: tablet Repeat number: 1 rivaroxaban 15 mg oral tablet 1 tablet = 15 mg, By Mouth, Daily in PM, per cardiology, dose decrease, # 30 tablet, 0 Refills, Maintenance, 02/09/24 12:22:00 PM EDT, Tablet, Partial fill upon patient request if the prescription is for a schedule II opioid drug. Start Date: 02/09/24 Status: Ordered Quantity: 30.0 Unit: tablet Repeat number: 1 traZODone 50 mg oral tablet 50 mg, 1, tablet, By Mouth, Daily at bedtime, PRN, # 30 tablet, Refills 0, Maintenance, Insomnia, 08/04/23 2:42:00 PM EST, Partial fill upon patient request if the prescription is for a schedule II opioid drug. Start Date: 08/04/23 Status: Ordered Quantity: 30.0 Unit: tablet Repeat number: 1 umeclidinium 62.5 mcg/inh inhalation powder 1 each, Inhalation, Every 24 hours, doses should be taken at least 24 hours apart, # 30 each, 1 Refills, Maintenance, 12/16/23 4:27:00 PM EDT, Powder, [facility] #[id number], Partial fill upon patient request if the prescription is for a schedule II opioid drug., 161.5, cm, 12/16/23 15:56:00 EDT, Height, 87.7, kg, 12/16/23 15:56:00 EDT, Dry Weight Start Date: 12/16/23 Status: Ordered Quantity: 30.0 Unit: each Repeat number: 2 Vitamin D 90297 iu oral capsule 50,000 International_Units, By Mouth, Daily, Refills 0, Maintenance, 11/21/23 1:54:00 PM EDT, Partialfill upon patient request if the prescription is for a schedule II opioid drug. Start Date: 11/21/23 Status: Ordered Repeat number: 1 Problem List Condition Confirmation Course Effective Dates Status H ealth Status Informant Anxiety Confirmed Active Asthma Confirmed Active A-fib Confirmed Active BPH (benign prostatic hyperplasia) Confirmed Active ICD (implantable cardioverter-defibril lator), biventricular, in situ Confirmed Active CAD (coronary artery disease), CABG Confirmed Active Carotid artery disease Confirmed Active Chronic GERD Confirmed Active Gout Confirmed Active History of sudden cardiac arrest successfully resuscitated Confirmed Active Hx of thyroid nodule Confirmed Active 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 ED (erectile dysfunction) Confirmed Active Insomnia Confirmed Active Claudication Confirmed Active Obese class I Confirmed Active Obesity, actual BMI 39 as of 08/23/2019 Confirmed Active KEVIN (obstructive sleep apnea) Confirmed Active Osteoarthritis Confirmed Active PVD (peripheral vascular disease) Confirmed Active Primary osteoarthritis of knees, bilateral Confirmed Active Right bundle branch block (RBBB) Confirmed 05/18/13 Active Sinus bradycardia Confirmed Active Cervical stenosis of spinal canal Confirmed Active 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 Syncope Confirmed Active Social History Social History Type Response Smoking Status Former smoker, quit more than 30 days ago entered on: 11/21/23 Sex Sex Representation Male (finding) Patient Care team information Care Team Personnel Name: Marie Trinidad RN Position: [facility] RN Member Role: Primary Care Nurse Name: Ariella Salgado Position: [facility] Outreach Member Role: Lifetime Consulting Physician Name: Maday Gonzalez RN Position: [facility] sustain engineer Member Role: Clinical Laboratory Technician Name: Prince Manning MD Position: [facility] Physician - Primary Care Member Role: PCP Address: [address] [place] [address] [facility] [address] Telecom: Name: Tiera Recinos RN Position: [facility] RN Member Role: Primary Care Nurse Care Team Related Persons Name: SIMI MENON Name: QASIM MOON Insurance Providers Guarantor name: LILIANA MENON Health Plan Information #: 1 Payer: MEDICARE PART B OUTPT Member Number: [id number] Policy Number: NA Group Number: NA Health Plan Information #: 2 Payer: MEDEX Member Number: [id number] Policy Number: NA Group Number: NA
--- OUTSIDE RECORDS SUMMARY | 2024-05-25 20:54 | XMS_ITS | Continuity of Care Document ---
Author Organization [facility] Address [address] [place] [address]- Care Team Providers Care Senior Budget Analyst Name Role Phone Kerri GUILLAUME, Prince Nunez Primary Care Physician Encounter [facility] Date(s): 03/26/24 - 04/25/24 [facility] [address] [place], [place] [address] Allergies, Adverse Reactions, Alerts No Known Allergies [...] virus vaccine, inactivated 04/09/15 Dom rded SARS-CoV-2(COVID-19)mRNA-LNP vac([id number]) 03/27/23 Recorded tetanus/diphtheria/pertussis, acel(Tdap) 1 10/21/22 Recorded tetanus/diphtheria/pertussis, acel(Tdap) 10/21/22 Recorded [id number] 12y+ bivalent booster vax 03/15/22 Recorded SARS-CoV-2 mRNA ([id number]) vax 09/13/21 Recorded SARS-CoV-2 (COVID-19) mRNA BNT-162b2 [...] Recorded 1Result Comment: Unit: Unknown Route: Intramuscular Foreign Service Officer: GlaxoSmithKline 2Result Comment: Unit: Unknown Route: Intramuscular Foreign Service Officer: Sanofi Pasteur 3Result Comment: Unit: Unknown Route: Intramuscular Foreign Service Officer: Seqirus 4Result Comment: Unit: Unknown Route: Intramuscular Foreign Service Officer: GlaxRadialogicaine 5Result Comment: Unit: Unknown Route: Intramuscular Foreign Service Officer: [employer]Stand Medications allopurinol 100 mg oral tablet 100 mg, 1, tablet, By Mouth, Daily, # 90 tablet, Refills 0, Maintenance, 08/04/23 14:29:00 EST, Partial fill upon patient request if the prescription is for a schedule II opioid drug. Start Date: 08/04/23 Status: Ordered amiodarone 200 mg oral tablet 400 mg, 2, tablet, By Mouth, 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, superannuation clerk, Refills 0, Maintenance, 03/30/24 13:54:00EDT, Partial fill upon patient request if the prescription is for a schedule II opioid drug. Start Date: 03/30/24 Status: Ordered atorvastatin 40 mg oral tablet 1 tablet = 40 mg, By Mouth, Daily at bedtime, # 90 tablet, 0 Refills, Maintenance, 06/25/21 10:30:00 EST, Tablet, Partial fill upon patient request if the prescription is for a schedule II opioid drug. Start Date: 06/25/21 Status: Ordered bumetanide 1 mg oral tablet 1 mg, 1, tablet, By Mouth, Daily, PRN, # 30 tablet, Refills 0, Maintenance, edema, weight gain, 08/04/23 14:43:00 EST, Partial fill upon patient request if the prescription is for a schedule II opioid drug. Start Date: 08/04/23 Status: Ordered Calcium 600 +D = 500 mg, By Mouth, 0 Refills, Maintenance, 03/21/15 10:47:08 Start Date: 03/21/15 Status: Ordered cilostazol 50 mg oral tablet 1 tablet, By Mouth, 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, # 180 tablet, 3 Refills, Maintenance, 11/03/23 10:45:00 EDT, [facility] WBP, 161.5, cm, 09/15/23 14:00:00 EDT, Height, 96.8, kg, 05/16/23 9:57:00 EST, Dry Weight Start Date: 11/03/23 Status: Ordered colchicine 0.6 mg oral capsule See Instructions, 2 caps PO at onset of gout flare, then 1 cap PO one hour later, followed by 1 capPO BID until gout flare resolves, # 60 capsule, 1 Refills, Maintenance, 04/12/21 16:16:00 EDT, Capsule, [facility] #[id number], Partial fill upon... Start Date: 04/12/21 Status: Ordered ferrous sulfate 325 mg oral enteric coated tablet 325 mg, 1, tablet, By Mouth, Daily, # 30 tablet, Refills 2, Tot. Refills 2, Maintenance, 01/30/24 17:37:00 EDT, Route to Pharmacy Electronically, [facility] #[id number], Partial fill upon patient request if the prescription is for a schedule II o... Start Date: 01/30/24 Status: Ordered finasteride 5 mg oral tablet 1 tablet = 5 mg, By Mouth, Daily, 0 Refills, Maintenance, 03/21/15 10:44:55 EDT Start Date: 03/21/15 Status: Ordered gabapentin 600 mg oral tablet 1 tablet = 600 mg, By Mouth, Daily, 0 Refills, Maintenance, 11/14/23 10:32:00 EDT, Partial fill upon patient request if the prescription is for a schedule II opioid drug. Start Date: 11/14/23 Stop Date: 02/12/24 Status: Ordered levothyroxine 0.088 mg oral tablet 1 tablet = 88 mcg, By Mouth, Daily in AM, # 90 tablet, 1 Refills, Maintenance, 03/30/24 14:05:00 EDT, Tablet, [facility], Partial fill upon patient request if the prescription is for a schedule II opioid drug., 161.5, cm, ... Start Date: 03/30/24 Status: Ordered LORazepam 0.5 mg oral tablet 1 tablet = 0.5 mg, By Mouth, Daily, PRN for anxiety, checked masspat, # 30 tablet, 0 Refills, Maintenance, 02/09/24 13:19:00 EDT, Tablet, [facility], Partial fill upon patient request if the prescription is for a schedule II opi... Start Date: 02/09/24 Status: Ordered Metoprolol Succinate ER 25 mg oral tablet, extended release 0.5 tablet = 12.5 mg, By Mouth, Daily, # 30 tablet, 0 Refills, Maintenance, 08/04/23 14:40:00 EST, ER Tablet, Partial fill upon patient request if the prescription is for a schedule II opioid drug. Start Date: 08/04/23 Status: Ordered nitroglycerin 0.4 mg sublingual tablet 1 tablet = 0.4 mg, Sublingual, Every 5 minutes, PRN for chest pain, # 100 tablet, 0 Refills, Maintenance, 11/14/23 10:33:00 EDT, Tablet, Partial fill upon patient request if the prescription is for aschedule II opioid drug. Start Date: 11/14/23 Status: Ordered Nitrostat 0.4 mg sublingual tablet 1 tablet = 0.4 mg, Sublingual, Every 5 minutes, PRN for chest pain, # 100 tablet, 0 Refills, Maintenance, 07/05/16 9:04:59, Tablet Start Date: 07/05/16 Status: Ordered pantoprazole 40 mg oral delayed release tablet 1 tablet, By Mouth, 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, # 180 tablet, 3 Refills, Maintenance, 03/29/24 10:53:00 EDT, 161.5, cm, 02/09/24 12:01:00 EDT, Height, 99.7, kg, 02/09/24 12:01:00 EDT, Dry Weight Start Date: 03/29/24 Status: Ordered rivaroxaban 15 mg oral tablet 1 tablet = 15 mg, By Mouth, Daily in PM, per cardiology, dose decrease, # 30 tablet, 0 Refills, Maintenance, 02/09/24 12:22:00 EDT, Tablet, Partial fill upon patient request if the prescription is for a schedule II opioid drug. Start Date: 02/09/24 Status: Ordered traZODone 50 mg oral tablet 50 mg, 1, tablet, By Mouth, Daily at bedtime, PRN, # 30 tablet, Refills 0, Maintenance, Insomnia, 08/04/23 14:42:00 EST, Partial fill upon patient request if the prescription is for a schedule II opioid drug. Start Date: 08/04/23 Status: Ordered umeclidinium 62.5 mcg/inh inhalation powder 1 each, Inhalation, Every 24 hours, doses should be taken at least 24 hours apart, # 30 each, 1 Refills, Maintenance, 12/16/23 16:27:00 EDT, Powder, [facility] #[id number], Partial fill upon patient request if the prescription is for a schedule I... Start Date: 12/16/23 Status: Ordered Vitamin D 57976 iu oral capsule 50,000 International_Units, By Mouth, Daily, Refills 0, Maintenance, 11/21/23 13:54:00 EDT, Partialfill upon patient request if the prescription is for a schedule II opioid drug. Start Date: 11/21/23 Status: Ordered Problem List Condition Confirmation Course Effective Dates [...] 30 days ago entered on: 11/21/23 Sex Patient Care team information Care Team Personnel Name: Marie Trinidad RN Position: [facility] RN Member Role: Primary Care Nurse Name: Maday Gonzalez RN Position: [facility] airborne mission systems Member Role: Speech Therapy Assistant Name: Prince Manning MD Position: [facility] Physician - Primary Care Member Role: PCP Address: Address: [address] [place] [address] Adult & Pediatric Medicine [place], [place] [address] Name: Tiera Recinos RN Position: [facility] RN Member Role: Primary Care Nurse Care Team Related Persons Name: SIMI MENON Address: home [address] [place] [address] Name: QASIM MOON Address: home [address] [place] [address]
--- OUTSIDE RECORDS SUMMARY | 2024-05-25 20:54 | XMS_ITS | Continuity of Care Document ---
Author Organization [facility] Address [address] [place] [address]- Care Team Providers Care Act Tutor Name Role Phone Kerri GUILLAUME, Prince Nunez Primary Care Physician Encounter [facility] Date(s): 03/24/24 - 04/29/24 [facility] [address] [place], [place] [address] Attending Physician: Rohit Emery MD Encounter Type: Pre Office Visit Allergies, [...] virus vaccine, inactivated 04/09/15 Dom rded SARS-CoV-2(COVID-19)mRNA-LNP vac([id number]) 03/27/23 Recorded tetanus/diphtheria/pertussis, acel(Tdap) 1 10/21/22 Recorded tetanus/diphtheria/pertussis, acel(Tdap) 10/21/22 Recorded [id number] 12y+ bivalent booster vax 03/15/22 Recorded SARS-CoV-2 mRNA (nfmghvi-[id number]) vax 09/13/21 Recorded SARS-CoV-2 (COVID-19) mRNA BNT-162b2 [...] Recorded 1Result Comment: Unit: Unknown Route: Intramuscular Financial Aid Advisor: GlaxSwapferitine 2Result Comment: Unit: Unknown Route: Intramuscular Financial Aid Advisor: [employer] 3Result Comment: Unit: Unknown Route: Intramuscular Financial Aid Advisor: Seqirus 4Result Comment: Unit: Unknown Route: Intramuscular Financial Aid Advisor: [address] [facility] [employer] 5Result Comment: Unit: Unknown Route: Intramuscular Financial Aid Advisor: [address] [facility] [employer] Medications allopurinol 100 mg oral tablet 100 [...] tablet, By Mouth, 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, ward clerk, Refills 0, Maintenance, 03/30/24 1:54:00 PM EDT, [...] 3 Refills, Maintenance, 11/03/23 10:45:00 AM EDT, [facility] WBP, 161.5, cm, 09/15/23 [...] Refills, Maintenance, 04/12/21 4:16:00 PM EDT, Capsule, [facility] #[id number], Partial fill upon patient request if the [...] 5:37:00 PM EDT, Route to Pharmacy Electronically, [facility] #[id number], Partial fill upon patient request if the [...] Refills, Maintenance, 03/30/24 2:05:00 PM EDT, Tablet, [facility], Partial fill upon patient request if [...] Refills, Maintenance, 02/09/24 1:19:00 PM EDT, Tablet, [facility], Partial fill upon patientrequest if the [...] Refills, Maintenance, 12/16/23 4:27:00 PM EDT, Powder, [facility] #[id number], Partial fill upon patient request if the prescription is for a schedule II opioid drug., 161.5, cm, 12/16/23 15:56:00 EDT, Height, 87.7, kg, 12/16/23 15:56:00 EDT, Dry Weight Start Date: 12/16/23 Status: Ordered Quantity: 30.0 Unit: each Repeat number: 2 Vitamin D 98895 iu oral capsule 50,000 International_Units, By Mouth, [...] Team Personnel Name: Marie Trinidad RN Position: [facility] RN Member Role: Primary Care Nurse Name: Maday Gonzalez RN Position: [facility] wardrobe coordinator Member Role: Social Insurance Administrator Name: Prince Manning MD Position: [facility] Physician - Primary Care Member Role: PCP Address: [address] [place] [address] Adult & Pediatric Medicine [place], [place] [address] Telecom: Name: Tiera Recinos RN Position: [facility] RN Member Role: Primary Care Nurse Care Team Related Persons Name: SIMI MENON Name: QASIM MOON Insurance Providers Guarantor name: LILIANA SINAN Health Plan Information #: 2 Payer: MEDEX Member Number: [id number] Policy Number: NA Group Number: NA Health Plan Information #: 1 Payer: MEDICARE PART B OUTPT Member Number: [id number] Policy Number: NA Group Number: NA
== END 2024-05-19 15:11 | disposition home or self-care (01) ==
PROVIDERS: PCP Internal Medicine Sports Medicine; Visit Provider Internal Medicine
DX: I50.42 Chronic combined systolic (congestive) and diastolic (congestive) heart failure (principal); I25.10 Atherosclerotic heart disease of native coronary artery without angina pectoris; I47.20 Ventricular tachycardia, unspecified; Z95.810 Presence of automatic (implantable) cardiac defibrillator; I48.91 Unspecified atrial fibrillation
CPT/HCPCS: 93010; 99214

== ENCOUNTER → 2024-05-19 14:43 | Outpatient (BNVA) | payer MEDICARE, SELFPAY | PROVIDERS: PCP Internal Medicine Sports Medicine; Visit Provider Internal Medicine | DX: I11.0 Hypertensive heart disease with heart failure (principal); I25.10 Atherosclerotic heart disease of native coronary artery without angina pectoris; I50.42 Chronic combined systolic (congestive) and diastolic (congestive) heart failure; I47.20 Ventricular tachycardia, unspecified; I48.91 Unspecified atrial fibrillation; Z95.810 Presence of automatic (implantable) cardiac defibrillator | CPT/HCPCS: 93005; 99212 ==

== ENCOUNTER 2024-05-26 11:58 | Outpatient (REF) | payer MEDICARE, SELFPAY ==
[2024-05-26 14:27] LABS: Blood Urea Nitrogen 104 mg/dL (9-16); Calcium 9.3 mg/dL (8.4-10.2); Estimated Glomerular Filt Rate 38; Glucose Random 127 mg/dL (60-115)
[2024-05-26 14:46] LABS: Anion Gap 14 (12-20); Carbon Dioxide 21 mmol/L (22-29); Chloride 103 mmol/L (96-108); Sodium 132 mmol/L (135-145)
[2024-05-26 14:48] LABS: B Type Natriuretic Peptide 2446 pg/mL (<100)
[2024-05-26 14:51] LABS: Potassium 6.1 mmol/L (3.3-5.1)
== END 2024-05-26 11:59 | disposition home or self-care (01) ==
LOC: HO.WFDLDS 11:58
PROVIDERS: Visit Provider Internal Medicine
DX: I50.9 Heart failure, unspecified (principal)
CPT/HCPCS: 36415; 80048; 83880

== ENCOUNTER 2024-05-28 10:20 | Outpatient (REF) | payer MEDICARE, SELFPAY ==
[2024-05-28 14:29] LABS: Anion Gap 17 (12-20); Blood Urea Nitrogen 92 mg/dL (9-16); Calcium 9.4 mg/dL (8.4-10.2); Carbon Dioxide 18 mmol/L (22-29); Chloride 101 mmol/L (96-108); Estimated Glomerular Filt Rate 42; Glucose Random 95 mg/dL (60-115); Potassium 5.4 mmol/L (3.3-5.1); Sodium 131 mmol/L (135-145)
== END 2024-05-28 10:21 | disposition home or self-care (01) ==
LOC: HO.WFDLDS 10:20
DX: E87.5 Hyperkalemia (principal); I50.42 Chronic combined systolic (congestive) and diastolic (congestive) heart failure
CPT/HCPCS: 36415; 80048; 99212

== ENCOUNTER 2024-05-28 15:39 | Outpatient (AMB) | payer MEDICARE, SELFPAY ==
--- NOTE | 2024-05-28 15:47 | HO.NEPHOV_ITS ---
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 He was started on Bumex drip & was adjusted to maintain adequate output. Fluid balance at discharge -18 L. patient also underwent multiple therapeutic paracentesis during this admission. His sodium ranged from 123 through 129. After D/C, he had rehab and has lost a lot of weight. He was on K replacement along with Spironolactone along with torsemide 80 mg bid. His daughter who is a RN when she saw the high K and weight loss, she initially reduced torsemide to 80 mg AM and 40 mg PM and discontinued it later. She also held his Spironolactone as well as K supplementation. His weight has been stable and denies chest pain, SOB, PND, Orthopnea, nausea, vomiting, dizziness or abdominal distension. His serum Na has been stable. He is careful with Na and fluid intake. [facility] Medical History (Updated 05/28/24 @ 19:56 by Watson Wren MD) Hyponatremia Iron deficiency anemia Elevated LFTs CKD (chronic kidney disease) LIBRA (acute kidney injury) Ischemic cardiomyopathy History of torsades de pointes Atherosclerotic cardiovascular disease Elevated serum creatinine Biventricular ICD (implantable cardioverter-defibrillator) in place Syncope RBBB PVD (peripheral vascular disease) Hx of thyroid nodule GERD (gastroesophageal reflux disease) CAD (coronary artery disease) BPH (benign prostatic hyperplasia) Asthma Atrial fibrillation Surgical History Hx of CABG Hx of cardiac cath H/O right knee surgery H/O heart surgery Family History Mother Breast cancer Father Heart attack Brother Stomach cancer Brother Heart disease Social History Household Members: None Housing: House Do you presently have visiting nurse or other home services: Yes (cleaning lady) Alcohol intake: former Comment: pt refusing red socks, alarms, and camera Patient Tobacco Use Status: Former Tobacco user Years Smoked: 25 +/- Advance Directives Date on File: 10/31/23 service: Yes Review of Systems Const All systems reviewed & are unremarkable except as noted in HPI and below Physical Exam Vital Signs: Last Vital Signs Pulse 72 05/28/24 15:49 BP 102/50 L 05/28/24 15:49 Pulse Ox 99 05/28/24 15:49 Oxygen Delivery Method Room Air 05/28/24 15:49 BMI result Body Mass Index 26.6 Const General: comfortable and no acute distress Orientation/consciousness: patient oriented x3 HEENT Head: Yes normocephalic Mouth: Normal oral and palatal mucosa present Eyes EOM: EOMs intact bilaterally Neck Neck: Yes supple Resp Auscultation: clear to auscultation bilaterally Cardio Jugular venous distension: no JVD Rate: regular rate GI Palpation (GI): Soft to palpation Auscultation: normal bowel sounds General: Yes no CVA tenderness Back/Spine/Pelvis Back: no CVA tenderness Skin General skin exam: no rashes or lesions noted Neuro General: patient oriented x3 and moves all extremities Extrem General: Yes no pedal edema Results Reviewed Nephrology Results: Sodium 131 mmol/L (135-145) L 05/28/24 Potassium 5.4 mmol/L (3.3-5.1) H 05/28/24 Chloride 101 mmol/L (96-108) 05/28/24 Carbon Dioxide 18 mmol/L (22-29) L 05/28/24 BUN 92 mg/dL (9-16) H 05/28/24 Creatinine 1.58 mg/dL (0.5-1.4) H 05/28/24 Calcium 9.4 mg/dL (8.4-10.2) 05/28/24 Assessment & Plan Assessment & Plan (1) CKD stage 3b, 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: Code(s): N18.32 - Chronic kidney disease, stage 3b Category: Medical (2) Hyperkalemia: Code(s): E87.5 - Hyperkalemia Category: Medical (3) Chronic combined systolic and diastolic CHF (congestive heart failure): Code(s): I50.42 - Chronic combined systolic (congestive) and diastolic (congestive) heart failure Category: Medical (4) Hyponatremia: Code(s): E87.1 - Hypo-osmolality and hyponatremia Category: Medical Plan LIBRA on CKD- serum creatinine improving Discontinued PO Urea Continue to hold torsemide & Spironolactone Restart Spironolactone @ 25 mg daily from next Fri After next weekend, restart torsemide 40 mg daily Blood work in 2 weeks & in 4 weeks Follow up in one month; Answered his& daughters questions Orders: Orders Blood Urea Nitrogen 4 Weeks N18.32 - Chronic kidney disease, stage 3b Creatinine 4 Weeks N18.32 - Chronic kidney disease, stage 3b Blood Urea Nitrogen 2 Weeks N18.32 - Chronic kidney disease, stage 3b Creatinine 2 Weeks N18.32 - Chronic kidney disease, stage 3b Electrolytes 4 Weeks N18.32 - Chronic kidney disease, stage 3b Electrolytes 2 Weeks N18.32 - Chronic kidney disease, stage 3b Coding Level of Care Code Est Pt Level 4 (83979) Diagnoses CKD stage 3b, 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
[2024-05-28 15:49] VITALS: BP 102/50; PULSE 72; O2SAT 99; BMI 26.6
== END 2024-05-28 16:25 | disposition home or self-care (01) ==
PROVIDERS: PCP Internal Medicine Sports Medicine; Visit Provider Internal Medicine Nephrology
DX: N18.32 Chronic kidney disease, stage 3b (principal); I50.42 Chronic combined systolic (congestive) and diastolic (congestive) heart failure; E87.5 Hyperkalemia; E87.1 Hypo-osmolality and hyponatremia
CPT/HCPCS: 99214

== ENCOUNTER 2024-06-11 09:38 | Outpatient (REF) | payer MEDICARE, SELFPAY ==
[2024-06-11 11:48] LABS: MANUAL DIFF FLAG NO
[2024-06-11 11:52] LABS: Basophils Percent Auto 0.5 % (0-2); Eosinophils Absolute Auto 0.2 X10*3/uL (0.0-0.4); Eosinophils Percent Auto 2.7 % (0-4); Hematocrit 29.8 % (42.0-52.0); Hemoglobin 9.9 g/dl (14.0-18.0); Imm Gran Abs Auto 0.07 X10*3/uL (0.00-0.03); Imm Gran Pct Auto 0.9 % (0.0-0.4); Lymphocytes Absolute Auto 0.8 X10*3/uL (1.2-4.9); Lymphocytes Percent Auto 10.6 % (20-40); Mean Corpuscular HGB Conc 33.2 g/dl (31.0-36.0); Mean Corpuscular Hemoglobin 30.5 pg (27.0-33.0); Mean Corpuscular Volume 91.7 fL (80.0-98.0); Monocytes Absolute Auto 0.7 X10*3/uL (0.1-1.2); Monocytes Percent Auto 9.4 % (2-11); Neutrophils Percent Auto 75.9 % (45-73); Platelet Count 340 X10*3/uL (160-400); Red Blood Count 3.25 X10*6/uL (4.60-5.80); Red Cell Distribution Width 19.6 % (11.0-16.0); White Blood Count 7.9 X10*3/uL (4.8-10.8)
[2024-06-11 12:23] LABS: Iron 36 mcg/dL (45-160); Percent Iron Saturation 14 % (15-50); Total Iron Binding Capacity 256 mcg/dL (228-428); Unsaturated Iron Binding 220 ug/dL
[2024-06-11 12:25] LABS: Ferritin 369 ng/mL (20-250); TSH reflex Free T4 2.56 uIU/mL (0.32-4.0)
[2024-06-11 12:26] LABS: Anion Gap 13 (12-20); Blood Urea Nitrogen 55 mg/dL (9-16); Carbon Dioxide 25 mmol/L (22-29); Chloride 97 mmol/L (96-108); Estimated Glomerular Filt Rate 43; Sodium 131 mmol/L (135-145)
== END 2024-06-11 09:39 | disposition home or self-care (01) ==
LOC: HO.WFDLDS 09:38
PROVIDERS: Internal Medicine Sports Medicine; Visit Provider Internal Medicine Nephrology
DX: N18.32 Chronic kidney disease, stage 3b (principal); D50.9 Iron deficiency anemia, unspecified; E06.4 Drug-induced thyroiditis
CPT/HCPCS: 36415; 80051; 82565; 82728; 83540; 84443; 84520; 85025

== ENCOUNTER 2024-06-22 09:47 | Outpatient (REF) | payer MEDICARE, SELFPAY ==
--- OUTSIDE RECORDS SUMMARY | 2024-06-22 10:14 | XMS_ITS | Continuity of Care Document ---
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) - 06/07/24 CKD (chronic kidney disease), stage III(Discharge Diagnosis) - 06/07/24 Dry skin dermatitis(Discharge Diagnosis) - 06/07/24 Attending Physician: Prince Manning MD Encounter Type: Office Visit Allergies, Adverse Reactions, Alerts No [...] virus vaccine, inactivated 04/09/15 Dom rded SARS-CoV-2(COVID-19)mRNA-LNP vac([id number]) 03/27/23 Recorded tetanus/diphtheria/pertussis, acel(Tdap) 1 10/21/22 Recorded tetanus/diphtheria/pertussis, acel(Tdap) 10/21/22 Recorded [id number] 12y+ bivalent booster vax 03/15/22 Recorded SARS-CoV-2 mRNA ([id number]) vax 09/13/21 Recorded SARS-CoV-2 (COVID-19) mRNA BNT-162b2 [...] Recorded 1Result Comment: Unit: Unknown Route: Intramuscular Head Bander And Liner Operator: GlaxoSmithKline 2Result Comment: Unit: Unknown Route: Intramuscular Head Bander And Liner Operator: Sanofi Pasteur 3Result Comment: Unit: Unknown Route: Intramuscular Head Bander And Liner Operator: Seqirus 4Result Comment: Unit: Unknown Route: Intramuscular Head Bander And Liner Operator: GlaxoSmithKline 5Result Comment: Unit: Unknown Route: Intramuscular Head Bander And Liner Operator: Catapulter Medications allopurinol 100 mg oral tablet 100 [...] tablet, By Mouth, 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, 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, Refills 0, Maintenance, 03/30/24 1:54:00 PM EDT, [...] 3 Refills, Maintenance, 11/03/23 10:45:00 AM EDT, [facility] WBP, 161.5, cm, 09/15/23 [...] Refills, Maintenance, 04/12/21 4:16:00 PM EDT, Capsule, [id number], Partial fill upon patient request if the [...] 5:37:00 PM EDT, Route to Pharmacy Electronically, [id number], Partial fill upon patient request if the [...] Refills, Maintenance, 03/30/24 2:05:00 PM EDT, Tablet, [facility], Partial fill upon patient request if [...] Refills, Maintenance, 02/09/24 1:19:00 PM EDT, Tablet, [facility], Partial fill upon patientrequest if the [...] Refills, Maintenance, 12/16/23 4:27:00 PM EDT, Powder, [facility] #[id number], Partial fill upon patient request if the prescription is for a schedule II opioid drug., 161.5, cm, 12/16/23 15:56:00 EDT, Height, 87.7, kg, 12/16/23 15:56:00 EDT, Dry Weight Start Date: 12/16/23 Status: Ordered Quantity: 30.0 Unit: each Repeat number: 2 Vitamin D 18709 iu oral capsule 50,000 International_Units, By Mouth, [...] Active Insomnia Confirmed Active Claudication Confirmed Active Obesity, actual BMI 39 as of 08/23/2019 Confirmed Active KEVIN (obstructive sleep apnea) Confirmed Active Osteoarthritis Confirmed Active PVD (peripheral vascular disease) Confirmed Active Primary osteoarthritis of knees, bilateral Confirmed Active Right bundle branch block (RBBB) Confirmed 05/18/13 Active Sinus bradycardia Confirmed Active Cervical stenosis of spinal canal Confirmed Active 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 Syncope Confirmed Active Diagnosis Diagnosis Type Effective Dates Health Status Clinical Service Informant Combined systolic and diastolic HF (heart failure) Discharge Diagnosis 06/07/24 Hypothyroidism due to amiodarone Discharge Diagnosis 06/07/24 CKD (chronic kidney disease), stage III Discharge Diagnosis 06/07/24 Dry skin dermatitis Discharge Diagnosis 06/07/24 Vital Signs Most recent to oldest [Reference Range]: 1 Height 161.5 cm (06/07/24 2:50 PM) Weight 71.5 kg (06/07/24 2:50 PM) Oxygen Saturation [94-100 %] 100 % (06/07/24 2:50 PM) Pulse Rate [55-90 bpm] 80 bpm (06/07/24 2:50 PM) Body Mass Index [18.5-24.99 kg/m2] 27.41 kg/m2 *H* (06/07/24 2:50 PM) Blood Pressure [90-138/55-84 mm Hg] 112/ 68mm Hg (06/07/24 2:50 PM) Temperature [96.8-100.4 DegF] 97.5 DegF (06/07/24 2:50 PM) Mode of Delivery (Oxygen) Room air (06/07/24 2:50 PM) Blood pressure sites Arm, left (06/07/24 2:50 PM) Temperature Route Temporal (06/07/24 2:50 PM) Dry Weight 71.5 kg (06/07/24 2:50 PM) Weight Obtained Via Standing scale (06/07/24 2:50 PM) Social History Social History Type Response Smoking Status Former smoker, quit more than 30 days ago entered on: 11/21/23 Sex Sex Representation Male (finding) Note * Yulia Garibay: PERFORM Event Display: Patient Education/Instruction Authored Date: [id number] Ambulatory Adult Visit Summary [facility] [address] [place] [address] Name: LILIANA MENON : 1940?? Visit: 06/07/2024 14:46?? Ambulatory Visit Instructions ?? Your Care Team Primary Care Provider Prince Manning MD? This Visit Provider Prince Manning MD Your Diagnosis Iron deficiency anemia Amiodarone-induced thyroiditis Vitals Signs Temperature: 97.5 DegF Height: 161.5 cm Pulse Rate: 80 bpm Weight: 71.5 kg Systolic Blood Pressure: 112 mm Hg Body Mass Index:??27.41 kg/m2??High Diastolic Blood Pressure: 68 mm Hg Body surface area: 1.79 Oxygen Saturation: 100 % ?? What to do next Instructions From Your Provider PCV 20 pneumonia vaccine at the pharmacy. Follow-Up Appointments Follow Up with??Prince Manning MD When:??09/27/2024 01:20 PM EDT Where: [address] [facility] [place] [address]- Follow up Appointment - Ordered?-- 3 months, MWV, 06/07/24 15:28:00 EST Future Orders Uric Acid - Once, *Est. 08/04/23, Order for Today?? CBC w/ Differential - Routine, Once, 01/22/24 15:28:00 EDT, Within 3 Days, [facility], Blood?? CBC - Routine, Once, 03/12/24 3:00:00 EDT, Single or Recurring Future Order, [facility], Blood?? Ferritin - Routine, Once, 03/12/24 3:00:00 EDT, Single or Recurring Future Order, [facility], Blood?? Iron + Iron Binding Capacity - Routine, Once, 03/12/24 3:00:00 EDT, Single or Recurring Future Order, [facility], Blood?? INR - Routine, Once, 03/12/24 3:00:00 EDT, Single or Recurring Future Order, [facility], Blood?? CBC - Routine, Once, 03/15/24 3:00:00 EDT, Single or Recurring Future Order, [facility], Blood?? Ferritin - Routine, Once, 03/15/24 3:00:00 EDT, Single or Recurring Future Order, [facility], Blood?? Iron + Iron Binding Capacity - Routine, Once, 03/15/24 3:00:00 EDT, Single or Recurring Future Order, [facility], Blood?? INR (PT (INR)) - Routine, Once, 03/15/24 3:00:00 EDT, Order for Today, [facility], Blood?? PTT - Routine, Once, 03/15/24 3:00:00 EDT, Single or Recurring Future Order, [facility], Blood?? TSH Rfx on Abnormal to Free T4 - Routine, Once, 03/30/24 14:05:00 EDT, Order for Today, [facility], Blood?? CBC - Routine, Once, 06/07/24 15:12:00 EST, Order for Today, [facility], Blood?? Ferritin - Routine, Once, 06/07/24 15:12:00 EST, Order for Today, [facility], Blood?? Iron + Iron Binding Capacity - Routine, Once, 06/07/24 15:12:00 EST, Order for Today, [facility], Blood?? TSH Rfx on Abnormal to Free T4 - Routine, Once, 06/07/24 15:12:00 EST, Order for Today, [facility], Blood?? Medications The list below reflects the information in our records and provided by you today along with any changes made during this visit. Please continue your medications until treatment is completed or stopped by your provider. If this is different from the information you have or there are other questions,please contact the prescribing provider. 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 Unchanged Atorvastatin (atorvastatin 40 mg oral tablet) 1 tab(s) Oral Daily at Bedtime Unchanged Bumetanide (bumetanide 1 mg oral tablet) 1 tab(s) Oral Daily as needed for edema, weight gain Unchanged Calcium And Vitamin D Combination (Calcium 600 +D) 500 Milligram Oral Unchanged Cilostazol (cilostazol 50 mg oral tablet) 1 tab(s) Oral Twice a day Unchanged Colchicine (colchicine 0.6 mg oral capsule) See instructions 2 caps PO at onset of gout flare, then 1 cap PO one hour later, followed by 1 cap PO BID until goutflare resolves ?? Unchanged Ergocalciferol (Vitamin D 63086 iu oral capsule) 50,000 International Unit Oral Daily Unchanged Ferrous Sulfate (ferrous sulfate 325 mg oral enteric coated tablet) 1 tab(s) Oral Daily Unchanged Finasteride (finasteride 5 mg oral tablet) 1 tab(s) Oral Daily Unchanged Gabapentin (gabapentin 600 mg oral tablet) 1 tab(s) Oral Daily Duration: 90 Days Unchanged Levothyroxine (levothyroxine 0.088 mg oral tablet) 1 tab(s) Oral Daily in the morning Unchanged Lorazepam (LORazepam 0.5 mg oral tablet) 1 tab(s) Oral Daily as needed for for anxiety checked masspat ?? Unchanged Metoprolol (Metoprolol Succinate ER 25 mg oral tablet, extended release) 0.5 tab(s) Oral Daily Unchanged Nitroglycerin (nitroglycerin 0.4 mg sublingual tablet) 1 tab(s) Sublingual Every 5 minutes as needed for for chest pain Unchanged Nitroglycerin (Nitrostat 0.4 mg sublingual tablet) 1 tab(s) Sublingual Every 5 minutes as needed for for chest pain Unchanged Pantoprazole (pantoprazole 40 mg oral delayed release tablet) 1 tab(s) Oral Twice a day Unchanged rivaroxaban (rivaroxaban 15 mg oral tablet) 1 tab(s) Oral Daily in PM per cardiology, dose decrease ?? Unchanged Sodium Chloride Nasal ([place] Saline No-Drip Goodman 0.65% nasal gel) 1 spray(s) Nares, Both 4 times a day Unchanged Trazodone (traZODone 50 mg oral tablet) 1 tab(s) Oral Daily at Bedtime as needed for Insomnia Unchanged umeclidinium (umeclidinium 62.5 mcg/ inh inhalation powder) 1 Each Inhalation Every 24 hours doses should be taken at least 24 hours apart ?? Test Performed Below is a partial list of the tests performed during your Visit. You may have had other tests and procedures not included in this list. Please discuss all test results with your provider. CBC?-- Results Pending -- Ferritin?-- Results Pending -- Iron + Iron Binding Capacity?-- Results Pending -- TSH Rfx on Abnormal to Free T4?-- Results Pending -- Medications and Immunizations Administered Medications Given During Visit No medications given during this visit.?? Allergies (NKA means No Known Allergies) NKA Common Emergency Awareness Tips IS IT A STROKE? Act FAST and Check for these signs: FACE Does the face look uneven? ARM Does one arm drift down? SPEECH Does their speech sound strange? TIME Call at any sign of stroke ?? Heart Attack Signs Chest discomfort: Most heart attacks involve discomfort in the center of the chest and lasts more than a few minutes, or goes away and comes back. It can feel like uncomfortable pressure, squeezing, fullness or pain. Discomfort in upper body: Symptoms can include pain or discomfort in one or both arms, back, neck, jaw or stomach. Shortness of breath: With or without discomfort. Other signs: Breaking out in a cold sweat, nausea, or lightheaded. Remember, MINUTES DO MATTER. If you experience any of these heart attack warning signs, call to get immediate medical attention! ?? Smoking can increase your chances of developing chronic health problems and can cause harmful effects to other family members in your house. If you smoke, you are strongly encouraged to quit. Please call [facility] Link at [phone] or [phone] [phone]) or log in to [email or web address] for referrals to smoking cessation programs. ?? The National Suicide Prevention Hotline is available 06/01 if you or someone you know needs to find a reason to keep living. By calling 3-559-900-Like.fm (1147) you'll be connected to a skilled, trained counselor at a crisis center in your area. [facility] Portal You can view and manage your care through the patient portal or by using a health care amado of your choosing. [employer] is a website that allows you to securely view your medical information including your hospital discharge summary, office visit summaries, medications and follow-up visits. You can also request appointments, renew medications, and request access to your medical information using a health care amado of your choosing, or just ask a question. You can enroll at [email or web address] or register during your next office visit. [facility], in keeping with [facility] guidance, no longer requires face masks for staff, patientsor visitors in most situations. Similiar to time spent indoors at other locations, there is the chance that you were exposed to repiratory viruses during your time with us (such as flu or COVID-19). If you develop symptoms concerning for a viral respiratory infection, please seek testing (and treatment if indicated) from your medical provider or home test kit. ?? Disclaimer: The information provided is of a general nature and is intended to be used in conjunction with the recommendations and advice of your health care practitioner. Every effort has been made to ensure that the information provided is accurate and complete at the time it is provided to you however, as your needs change, or, as new information becomes available, different or additional instructions may be required. ?? If you have questions, please consult with your primary care provider or pharmacist, as appropriate. This information is not intended to serve as substitution for assessment and evaluation by a qualified health care provider. If you do not have a primary care provider, you may find a [facility] provider by calling [facility] at [phone]. Patient Care team information Care Team Personnel Name: Marie Trinidad RN Position: [facility] RN Member Role: Primary Care Nurse Name: Ariella Salgado Position: [facility] Outreach Member Role: Lifetime Consulting Physician Name: Maday Gonzalez RN Position: [facility] director of assessment Member Role: Project Management Analyst Name: Prince Manning MD Position: [facility] Physician - Primary Care Member Role: PCP Address: [address] [place] [address] [facility] [address] Telecom: Name: Tiera Recinos RN Position: [facility] RN Member Role: Primary Care Nurse Care Team Related Persons Name: SIMI MENON Name: QASIM MOON Insurance Providers Guarantor name: LILIANA MENON Health Plan Information #: 1 Payer: MEDICARE PART B OUTPT Member Number: [id number] Policy Number: NA Group Number: NA Health Plan Information #: 2 Payer: MEDEX Member Number: [id number] Policy Number: NA Group Number: NA
--- OUTSIDE RECORDS SUMMARY | 2024-06-22 10:14 | XMS_ITS | Continuity of Care Document ---
Author Organization [facility] Address [address] [place] [address]- Care Team Providers Care Spark Plug Tester Name Role Phone Kerri GUILLAUME, Prince Nunez Primary Care Physician Encounter [facility] Date(s): 04/30/24 - 05/30/24 [facility] [address] [place] [id number] Attending Physician: AdmPito renee Admitting Physician: AdmtrPito Referring Physician: Admtr, Ar8 Encounter Type: Triage Allergies, Adverse Reactions, Alerts No Known Allergies Immunizations Given and Recorded Vaccine Date Status Refusal Reason influenza virus vaccine, inactivated 02/20/24 Odm rded influenza virus vaccine, inactivated 03/27/23 Dom rded influenza virus vaccine, inactivated 03/15/22 Dom rded influenza virus vaccine, inactivated 02/17/21 Dom rded influenza virus vaccine, inactivated 02/04/20 Dom rded influenza virus vaccine, inactivated 02/26/19 Dom rded influenza virus vaccine, inactivated 03/13/18 Odm rded influenza virus vaccine, inactivated 02/28/17 Dom rded influenza virus vaccine, inactivated 02/19/16 Dom rded influenza virus vaccine, inactivated 04/09/15 Dom rded SARS-CoV-2(COVID-19)mRNA-LNP vac([id number]) 03/27/23 Recorded tetanus/diphtheria/pertussis, acel(Tdap) 1 10/21/22 Recorded tetanus/diphtheria/pertussis, acel(Tdap) 10/21/22 Recorded [id number]-KrA-[id number] 12y+ bivalent booster vax 03/15/22 Recorded SARS-CoV-2 mRNA (ufmmavm-bnic-dtgaa) vax 09/13/21 Recorded SARS-CoV-2 (COVID-19) mRNA BNT-162b2 [...] Recorded 1Result Comment: Unit: Unknown Route: Intramuscular Charger Tester: GlaxoSmithViaine 2Result Comment: Unit: Unknown Route: Intramuscular Charger Tester: Ship & Duck 3Result Comment: Unit: Unknown Route: Intramuscular Charger Tester: Seqirus 4Result Comment: Unit: Unknown Route: Intramuscular Charger Tester: GlaxoSmithKline 5Result Comment: Unit: Unknown Route: Intramuscular Charger Tester: Redlen Technologies Medications allopurinol 100 mg oral tablet 100 [...] tablet, By 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, 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, 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, Refills 0, Maintenance, 03/30/24 1:54:00 PM EDT, [...] 3 Refills, Maintenance, 11/03/23 10:45:00 AM EDT, [facility], 161.5, cm, 09/15/23 14:00:00 [...] Refills, Maintenance, 04/12/21 4:16:00 PM EDT, Capsule, [facility][id number], Partial fill upon patient request if the [...] 5:37:00 PM EDT, Route to Pharmacy Electronically, [facility] #[id number], Partial fill upon patient request if the [...] Maintenance, 03/30/24 2:05:00 PM EDT, Tablet, [facility], Partial fill upon patient request if [...] Maintenance, 02/09/24 1:19:00 PM EDT, Tablet, [facility], Partial fill upon patientrequest if the [...] Refills, Maintenance, 12/16/23 4:27:00 PM EDT, Powder, [facility] #[id number], Partial fill upon patient request if the prescription is for a schedule II opioid drug., 161.5, cm, 12/16/23 15:56:00 EDT, Height, 87.7, kg, 12/16/23 15:56:00 EDT, Dry Weight Start Date: 12/16/23 Status: Ordered Quantity: 30.0 Unit: each Repeat number: 2 Vitamin D 02511 iu oral capsule 50,000 International_Units, By Mouth, [...] Team Personnel Name: Marie Trinidad RN Position: [facility] RN Member Role: Primary Care Nurse Name: Ariella Salgado Position: [facility] Outreach Member Role: Lifetime Consulting Physician Name: Maday Gonzalez RN Position: [facility] cornice 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 Member Role: Strap Machine Operator Automatic Name: Prince Manning MD Position: [facility] Physician - Primary Care Member Role: PCP Address: [address] [place] [address] Adult & Pediatric Medicine [address] Telecom: Name: Tiera Recinos RN Position: [facility] RN Member Role: Primary Care Nurse Care Team Related Persons Name: SIMI MENON Name: QASIM MOON Insurance Providers Guarantor name: LILIANA MENON Health Plan Information #: 1 Payer: MEDICARE PART B OUTPT Member Number: NA Policy Number: NA Group Number: NA Health Plan Information #: 2 Payer: MEDEX Member Number: NA Policy Number: NA Group Number: NA
--- OUTSIDE RECORDS SUMMARY | 2024-06-22 10:14 | XMS_ITS | Continuity of Care Document ---
Author Organization [facility] Address [address] [place] [address]- Care Team Providers Care It Network Engineer Name Role Phone Kerri GUILLAUME, Prince Nunez Primary Care Physician [phone] Encounter [facility] Date(s): 05/10/24 - 06/09/24 [facility] [address] [place], [place] [address] Encounter Type: Triage Allergies, Adverse Reactions, Alerts [...] virus vaccine, inactivated 04/09/15 Dom rded SARS-CoV-2(COVID-19)mRNA-LNP vac([id number]) 03/27/23 Recorded tetanus/diphtheria/pertussis, acel(Tdap) 1 10/21/22 Recorded tetanus/diphtheria/pertussis, acel(Tdap) 10/21/22 Recorded [id number] 12y+ bivalent booster vax 03/15/22 Recorded SARS-CoV-2 mRNA (ogvolmx-eeda-mggtt) vax 3/31/22 Recorded SARS-CoV-2 (COVID-19) mRNA BNT-162b2 vac 03/14/21 [...] Recorded 1Result Comment: Unit: Unknown Route: Intramuscular Roaster Helper: GlaxSplash Technologyine 2Result Comment: Unit: Unknown Route: Intramuscular Roaster Helper: Tenant Magicofi Pasteur 3Result Comment: Unit: Unknown Route: Intramuscular Roaster Helper: Seqirus 4Result Comment: Unit: Unknown Route: Intramuscular Roaster Helper: Pogoappine 5Result Comment: Unit: Unknown Route: Intramuscular Roaster Helper: Baofeng Medications allopurinol 100 mg oral tablet 100 [...] tablet, By Mouth, 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, hand icer, Refills 0, Maintenance, 03/30/24 1:54:00 PM EDT, [...] 3 Refills, Maintenance, 11/03/23 10:45:00 AM EDT, [facility], 161.5, cm, 09/15/23 14:00:00 [...] Refills, Maintenance, 04/12/21 4:16:00 PM EDT, Capsule, [facility][id number], Partial fill upon patient request if the [...] 5:37:00 PM EDT, Route to Pharmacy Electronically, [facility] #[id number], Partial fill upon patient request if the [...] Maintenance, 03/30/24 2:05:00 PM EDT, Tablet, [facility], Partial fill upon patient [...] Maintenance, 02/09/24 1:19:00 PM EDT, Tablet, [facility], Partial fill upon patientrequest [...] Refills, Maintenance, 12/16/23 4:27:00 PM EDT, Powder, [facility][id number], Partial fill upon patient request if the prescription is for a schedule II opioid drug., 161.5, cm, 12/16/23 15:56:00 EDT, Height, 87.7, kg, 12/16/23 15:56:00 EDT, Dry Weight Start Date: 12/16/23 Status: Ordered Quantity: 30.0 Unit: each Repeat number: 2 Vitamin D 83715 iu oral capsule 50,000 International_Units, By Mouth, [...] Team Personnel Name: Marie Trinidad RN Position: [facility] RN Member Role: Primary Care Nurse Name: Ariella Salgado Position: [facility] Outreach Member Role: Lifetime Consulting Physician Name: Maday Gonzalez RN Position: [facility] signaling design engineer Member Role: Banquet Kitchen Supervisor Name: Prince Manning MD Position: [facility] Physician - Primary Care Member Role: PCP Address: [address] [place] [address] Adult & Pediatric Medicine [place], [place] [address] Telecom: Name: Tiera Recinos RN Position: [facility] RN Member Role: Primary Care Nurse Care [...]
--- OUTSIDE RECORDS SUMMARY | 2024-06-22 10:15 | XMS_ITS | Continuity of Care Document ---
Author Organization [facility] Address [address] [place] [address]- Care Team Providers Care Under Cutting Machine Operator Name Role Phone Kerri GUILLAUME, Prince Nunez Primary Care Physician [place] [facility] [place] 05/18/24 - 06/17/24 [facility] [address] [place], [place] [address] Encounter Type: Triage Allergies, Adverse Reactions, Alerts [...] virus vaccine, inactivated 04/09/15 Dom rded SARS-CoV-2(COVID-19)mRNA-LNP vac([id number]) 03/27/23 Recorded tetanus/diphtheria/pertussis, acel(Tdap) 1 10/21/22 Recorded tetanus/diphtheria/pertussis, acel(Tdap) 10/21/22 Recorded [id number]-[id number] 12y+ bivalent booster vax 03/15/22 Recorded SARS-CoV-2 mRNA (mnjdvxr-nfng-cbhcq) vax 09/13/21 Recorded SARS-CoV-2 (COVID-19) mRNA BNT-162b2 [...] Recorded 1Result Comment: Unit: Unknown Route: Intramuscular Title Checker: GlaxWeimiine 2Result Comment: Unit: Unknown Route: Intramuscular Title Checker: Karmasphereofi Pasteur 3Result Comment: Unit: Unknown Route: Intramuscular Title Checker: Seqirus 4Result Comment: Unit: Unknown Route: Intramuscular Title Checker: Voztelecom 5Result Comment: Unit: Unknown Route: Intramuscular Title Checker: Voztelecom Medications allopurinol 100 mg oral tablet 100 [...] tablet, By Mouth, 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, pipe chipper, Refills 0, Maintenance, 03/30/24 1:54:00 PM EDT, [...] 3 Refills, Maintenance, 11/03/23 10:45:00 AM EDT, [facility], 161.5, cm, 09/15/23 14:00:00 [...] Refills, Maintenance, 04/12/21 4:16:00 PM EDT, Capsule, [facility][id number], Partial fill upon patient request if the prescription is for a schedule II opioid drug., 163, cm, 04/10/21 14:38:00 EDT, Height, 99.6, kg, 11/19/19 17:41:00 EDT, Dry Weight Start Date: 04/12/21 Status: Ordered Quantity: 60.0 Unit: capsule Repeat number: 2 ferrous sulfate 325 mg oral enteric coated tablet 325 mg, 1, tablet, By Mouth, Daily, # 30 tablet, Refills 1, Tot. Refills 1, Maintenance, 06/15/24 9:02:00 AM EST, Route to Pharmacy Electronically, [facility], Partial fill upon patient request if the prescription is for a schedule II opioid drug., 161.5, cm, 06/07/24 14:50:00 EST, Height, 71.5, kg, 06/07/24 14:50:00 EST, Dry Weight Start Date: 06/15/24 Status: Ordered Quantity: 30.0 Unit: tablet Repeat number: 2 finasteride 5 mg oral tablet 1 tablet [...] Refills, Maintenance, 03/30/24 2:05:00 PM EDT, Tablet, [facility], Partial fill upon patient request if [...] Refills, Maintenance, 02/09/24 1:19:00 PM EDT, Tablet, [facility], Partial fill upon patientrequest if the [...] Refills, Maintenance, 12/16/23 4:27:00 PM EDT, Powder, [facility] #[id number], Partial fill upon patient request if the prescription is for a schedule II opioid drug., 161.5, cm, 12/16/23 15:56:00 EDT, Height, 87.7, kg, 12/16/23 15:56:00 EDT, Dry Weight Start Date: 12/16/23 Status: Ordered Quantity: 30.0 Unit: each Repeat number: 2 Vitamin D 85766 iu oral capsule 50,000 International_Units, By Mouth, [...] Team Personnel Name: Marie Trinidad RN Position: [facility] RN Member Role: Primary Care Nurse Name: Ariella Salgado Position: [facility] Outreach Member Role: Lifetime Consulting Physician Name: Maday Gonzalez RN Position: [facility] configuration management administrator Member Role: Print Shop Stenographer Name: Kerri GUILLAUME, Prince Nunez Position: [facility] Physician - Primary Care Member Role: PCP Address: [address] [place] [address] Adult & Pediatric Medicine [place], [place] [address] Telecom: Name: Tiera Recinos RN Position: [facility] RN Member Role: Primary Care Nurse [...]
--- OUTSIDE RECORDS SUMMARY | 2024-06-22 10:15 | XMS_ITS | Continuity of Care Document ---
Author Organization [facility] Address [address] [place] [address]- Care Team Providers Care Beauty Director Name Role Phone Kerri GUILLAUME, Prince Nunez Primary Care Physician Encounter [facility] Date(s): 02/24/24 - 06/03/24 [facility] [address] [place] [address] Attending Physician: Stephanie Rg NP Admitting Physician: Stephanie Rg NP Referring Physician: Prince Manning MD Encounter Type: Pre [...] virus vaccine, inactivated 04/09/15 Dom rded SARS-CoV-2(COVID-19)mRNA-LNP vac([id number]) 03/27/23 Recorded tetanus/diphtheria/pertussis, acel(Tdap) 1 10/21/22 Recorded tetanus/diphtheria/pertussis, acel(Tdap) 5/8/23 Recorded [id number] 12y+ bivalent booster vax 03/15/22 Recorded SARS-CoV-2 mRNA (btsiavn-qayo-pgbql) vax 09/13/21 Recorded SARS-CoV-2 (COVID-19) mRNA BNT-162b2 [...] Recorded 1Result Comment: Unit: Unknown Route: Intramuscular Veterinary Virus Serum Inspector: Ku6ine 2Result Comment: Unit: Unknown Route: Intramuscular Veterinary Virus Serum Inspector: NearbyNow 3Result Comment: Unit: Unknown Route: Intramuscular Veterinary Virus Serum Inspector: Seqirus 4Result Comment: Unit: Unknown Route: Intramuscular Veterinary Virus Serum Inspector: GlaxoSmithKline 5Result Comment: Unit: Unknown Route: Intramuscular Veterinary Virus Serum Inspector: C[employer]ostics Medications allopurinol 100 mg oral tablet 100 [...] tablet, By Mouth, 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, audiovisual equipment operator, Refills 0, Maintenance, 03/30/24 1:54:00 PM [...] 3 Refills, Maintenance, 11/03/23 10:45:00 AM EDT, [facility], 161.5, cm, 09/15/23 14:00:00 [...] Refills, Maintenance, 04/12/21 4:16:00 PM EDT, Capsule, [facility] #[id number], Partial fill upon patient request if the [...] 5:37:00 PM EDT, Route to Pharmacy Electronically, [facility] #[id number], Partial fill upon patient request if the [...] Maintenance, 03/30/24 2:05:00 PM EDT, Tablet, [facility], Partial fill upon patient [...] Maintenance, 02/09/24 1:19:00 PM EDT, Tablet, [facility], Partial fill upon patientrequest [...] Refills, Maintenance, 12/16/23 4:27:00 PM EDT, Powder, [facility] #[id number], Partial fill upon patient request if the prescription is for a schedule II opioid drug., 161.5, cm, 12/16/23 15:56:00 EDT, Height, 87.7, kg, 12/16/23 15:56:00 EDT, Dry Weight Start Date: 12/16/23 Status: Ordered Quantity: 30.0 Unit: each Repeat number: 2 Vitamin D 27471 iu oral capsule 50,000 International_Units, By Mouth, [...] Team Personnel Name: Marie Trinidad RN Position: [facility] RN Member Role: Primary Care Nurse Name: Ariella Salgado Position: [facility] Outreach Member Role: Lifetime Consulting Physician Name: Maday Gonzalez RN Position: [facility] driller and broacher Member Role: Passenger Rate Clerk Name: Prince Manning MD Position: [facility] Physician - Primary Care Member Role: PCP Address: [address] [place] [address] Adult & Pediatric Medicine [address] Telecom: Name: Tiera Recinos RN Position: [facility] RN Member Role: Primary Care Nurse Care Team Related Persons Name: SIMI MENON Name: QASIM MOON Insurance Providers Guarantor name: LILIANA MENON Health Plan Information #: 1 Payer: MEDICARE PART B OUTPT Member Number: [id number] Policy Number: NA Group Number: NA Health Plan Information #: 2 Payer: MEDEX Member Number: [id number] Policy Number: NA Group Number: NA
--- OUTSIDE RECORDS SUMMARY | 2024-06-22 10:15 | XMS_ITS | Continuity of Care Document ---
Author Organization [facility] Address [address] [place] [address]- Care Team Providers Care General Manager Land Department Name Role Phone Kerri GUILLAUME, Prince Nunez Primary Care Physician Encounter [facility] Date(s): 05/04/24 - 06/03/24 [facility] [address] [place] [id number] Attending Physician: AdmPito renee Admitting Physician: AdmtrPito Referring Physician: Admtr Ar8 Encounter Type: Triage Allergies, Adverse Reactions, [...] virus vaccine, inactivated 04/09/15 Dom rded SARS-CoV-2(COVID-19)mRNA-LNP vac([id number]) 03/27/23 Recorded tetanus/diphtheria/pertussis, acel(Tdap) 1 10/21/22 Recorded tetanus/diphtheria/pertussis, acel(Tdap) 10/21/22 Recorded QNAG-RbK-1xNCQ 12y+ bivalent booster vax 03/15/22 Recorded SARS-CoV-2 mRNA (dhsxfli-lcvk-xibjo) vax 09/13/21 Recorded SARS-CoV-2 (COVID-19) mRNA BNT-162b2 [...] Recorded 1Result Comment: Unit: Unknown Route: Intramuscular Betting Agency Counter Clerk: GlaxSierra Health FoundationithHAM-ITine 2Result Comment: Unit: Unknown Route: Intramuscular Betting Agency Counter Clerk: Comat Technologies 3Result Comment: Unit: Unknown Route: Intramuscular Betting Agency Counter Clerk: Seqirus 4Result Comment: Unit: Unknown Route: Intramuscular Betting Agency Counter Clerk: GlaxoSmithKline 5Result Comment: Unit: Unknown Route: Intramuscular Betting Agency Counter Clerk: [employer] Medications allopurinol 100 mg oral tablet 100 [...] tablet, By Mouth, 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, electronic coils supervisor, Refills 0, Maintenance, 03/30/24 1:54:00 PM EDT, [...] 3 Refills, Maintenance, 11/03/23 10:45:00 AM EDT, [facility], 161.5, cm, 09/15/23 14:00:00 [...] Refills, Maintenance, 04/12/21 4:16:00 PM EDT, Capsule, [facility] #[id number], Partial fill upon patient request if the [...] 5:37:00 PM EDT, Route to Pharmacy Electronically, [facility] #[id number], Partial fill upon patient request if the [...] Refills, Maintenance, 03/30/24 2:05:00 PM EDT, Tablet, [facility], Partial fill upon patient request [...] Refills, Maintenance, 02/09/24 1:19:00 PM EDT, Tablet, [facility], Partial fill upon patientrequest if [...] Refills, Maintenance, 12/16/23 4:27:00 PM EDT, Powder, [facility] #[id number], Partial fill upon patient request if the prescription is for a schedule II opioid drug., 161.5, cm, 12/16/23 15:56:00 EDT, Height, 87.7, kg, 12/16/23 15:56:00 EDT, Dry Weight Start Date: 12/16/23 Status: Ordered Quantity: 30.0 Unit: each Repeat number: 2 Vitamin D 35778 iu oral capsule 50,000 International_Units, By Mouth, [...] on: 11/21/23 Sex Sex Representation Male (finding) Cardiology * Event Display: Cardiology Office Note, Non- Authored Date: * Event Display: Cardiology Office Note, Non- Authored Date: Patient Care team information Care Team Personnel Name: Marie Trinidad RN Position: [facility] RN Member Role: Primary Care Nurse Name: Ariella Salgado Position: [facility] Outreach Member Role: Lifetime Consulting Physician Name: Maday Gonzalez RN Position: [facility] telegraph office manager Member Role: Convex Grinder Name: Prince Manning MD Position: [facility] Physician - Primary Care Member Role: PCP Address: [address] [place] [address] Adult & Pediatric Medicine [address] Telecom: Name: Tiera Recinos RN Position: [facility] RN Member Role: Primary Care Nurse Care [...]
--- OUTSIDE RECORDS SUMMARY | 2024-06-22 10:15 | XMS_ITS | Continuity of Care Document ---
Author Organization [facility] Address [address] [place] [address]- Care Team Providers Care Sweat Box Attendant Name Role Phone Kerri GUILLAUME, Prince Nunez Primary Care Physician Encounter [facility] Date(s): 02/24/24 - 05/30/24 [facility] [address] [place], [place] [address] Attending Physician: Stephanie Rg NP Admitting Physician: Stephanie Rg NP Referring Physician: Stephanie Rg NP Encounter Type: Pre-Outpt Allergies, Adverse Reactions, Alerts No Known Allergies [...] virus vaccine, inactivated 04/09/15 Dom rded SARS-CoV-2(COVID-19)mRNA-LNP vac([id number]) 03/27/23 Recorded tetanus/diphtheria/pertussis, acel(Tdap) 1 10/21/22 Recorded tetanus/diphtheria/pertussis, acel(Tdap) 10/21/22 Recorded [id number]-[id number] 12y+ bivalent booster vax 03/15/22 Recorded SARS-CoV-2 mRNA (bdysnwk-ksib-ispwb) vax 09/13/21 Recorded SARS-CoV-2 (COVID-19) mRNA BNT-162b2 [...] Recorded 1Result Comment: Unit: Unknown Route: Intramuscular Judge Clerk: Midatechine 2Result Comment: Unit: Unknown Route: Intramuscular Judge Clerk: [employer] 3Result Comment: Unit: Unknown Route: Intramuscular Judge Clerk: Seqirus 4Result Comment: Unit: Unknown Route: Intramuscular Judge Clerk: GlaxoSmithKline 5Result Comment: Unit: Unknown Route: Intramuscular Judge Clerk: 500px Medications allopurinol 100 mg oral tablet 100 [...] tablet, By Mouth, 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, visualization developer, Refills 0, Maintenance, 03/30/24 1:54:00 PM EDT, [...] a schedule II opioid drug. Start Date: 1/10/22 Status: Ordered Quantity: 90.0 Unit: tablet Repeat [...] 3 Refills, Maintenance, 11/03/23 10:45:00 AM EDT, [facility], 161.5, cm, 09/15/23 14:00:00 [...] Refills, Maintenance, 04/12/21 4:16:00 PM EDT, Capsule, [facility] #[id number], Partial fill upon patient request if the [...] 5:37:00 PM EDT, Route to Pharmacy Electronically, [facility] #[id number], Partial fill upon patient request if the prescription is for a schedule II opioid drug., 161.5, cm, 08/08/24 14:52:00 EDT, Height, 88.5, kg, 01/22/24 14:52:00 [...] 03/30/24 2:05:00 PM EDT, Tablet, [facility], Partial fill upon patient request [...] 02/09/24 1:19:00 PM EDT, Tablet, [facility], Partial fill upon patientrequest if [...] Refills, Maintenance, 12/16/23 4:27:00 PM EDT, Powder, [facility] #[id number], Partial fill upon patient request if the prescription is for a schedule II opioid drug., 161.5, cm, 12/16/23 15:56:00 EDT, Height, 87.7, kg, 12/16/23 15:56:00 EDT, Dry Weight Start Date: 12/16/23 Status: Ordered Quantity: 30.0 Unit: each Repeat number: 2 Vitamin D 94944 iu oral capsule 50,000 International_Units, By Mouth, [...] RN Position: [facility] thread reeler Member Role: Scraper Loader Operator Name: Prince Manning MD Position: [facility] Physician - Primary Care Member Role: PCP Address: [address] [place] [address] Adult & Pediatric Medicine [address] Telecom: Name: Tiera Recinos RN Position: [facility] RN Member Role: Primary Care Nurse Care Team Related Persons Name: SIMI MENON Name: QASIM MOON Insurance Providers Guarantor name: LILIANA MENON Health Plan Information #: 1 Payer: MEDICARE PART B OUTPT Member Number: [id number] Policy Number: NA Group Number: NA Health Plan Information #: 2 Payer: MEDEX Member Number: [id number] Policy Number: NA Group Number: NA
[2024-06-22 12:15] LABS: Anion Gap 13 (12-20); Blood Urea Nitrogen 57 mg/dL (9-16); Carbon Dioxide 26 mmol/L (22-29); Chloride 100 mmol/L (96-108); Estimated Glomerular Filt Rate 46; Potassium 4.2 mmol/L (3.3-5.1); Sodium 135 mmol/L (135-145)
== END 2024-06-22 09:48 | disposition home or self-care (01) ==
LOC: HO.WFDLDS 09:47
PROVIDERS: Visit Provider Internal Medicine Nephrology
DX: N18.32 Chronic kidney disease, stage 3b (principal)
CPT/HCPCS: 36415; 80051; 82565; 84520

== ENCOUNTER 2024-06-23 16:00 | Outpatient (AMB) | payer MEDICARE, SELFPAY ==
--- NOTE | 2024-06-23 16:11 | HO.NEPHOV ---
Vital Signs 06/23/24 16:13 Height 5 ft 4 in Weight 155 lb 6 oz BMI 26.7 BP 98/50 L Blood Pressure Location Lt brachial Position Sitting Pulse 78 Pulse Source Pulse Oximeter Pulse Oximetry (%) 98 Oxygen Delivery Method Room Air Intake Visit Reasons: 1 mo fu w/ labs [employer] Required: No Accompanied by: Daughter Allergies doxycycline Allergy (Unknown, Verified 06/23/24 16:13) Unknown narcotics Adverse Reaction (Uncoded 02/18/24 14:29) Nausea and Vomiting, hypotensive HPI Comments Details: 83-year-old male with medical history significant for cardiac arrest (03/2023) s/p biventricular ICD in place, HFrEF, CKD3, LIBRA on CKD , paroxysmal a fib on xarelto, CAD, PAD, gout and KEVIN [place] [facility] [place] of shortness of breath, dyspnea, weight gain and pedal edema.At that time he was started on Bumex drip & was adjusted to maintain adequate output. Fluid balance at discharge -18 L. patient also underwent multiple therapeutic paracentesis during this admission. His sodium ranged from 123 through 129. After D/C, he had rehab and has lost a lot of weight. His weight has been stable and denies chest pain, SOB, PND, Orthopnea, nausea, vomiting, dizziness or abdominal distension. His serum Na has been stable. He is careful with Na and fluid intake REPLACED BY [facility] Medical History (Updated 05/28/24 @ 19:56 by Watson Wren MD) Hyponatremia Iron deficiency anemia Elevated LFTs CKD (chronic kidney disease) LIBRA (acute kidney injury) Ischemic cardiomyopathy History of torsades de pointes Atherosclerotic cardiovascular disease Elevated serum creatinine Biventricular ICD (implantable cardioverter-defibrillator) in place Syncope RBBB PVD (peripheral vascular disease) Hx of thyroid nodule GERD (gastroesophageal reflux disease) CAD (coronary artery disease) BPH (benign prostatic hyperplasia) Asthma Atrial fibrillation Surgical History Hx of CABG Hx of cardiac cath H/O right knee surgery H/O heart surgery Family History Mother Breast cancer Father Heart attack Brother Stomach cancer Brother Heart disease Social History Household Members: None Housing: House Do you presently have visiting nurse or other home services: Yes (cleaning lady) Alcohol intake: former Comment: pt refusing red socks, alarms, and camera Patient Tobacco Use Status: Former Tobacco user Years Smoked: 25 +/- Advance Directives Date on File: 10/31/23 service: Yes Review of Systems Const All systems reviewed & are unremarkable except as noted in HPI and below Physical Exam Vital Signs: Last Vital Signs Pulse 78 06/23/24 16:13 BP 98/50 L 06/23/24 16:13 Pulse Ox 98 06/23/24 16:13 Oxygen Delivery Method Room Air 06/23/24 16:13 BMI result Body Mass Index 26.7 Const General: comfortable and no acute distress Orientation/consciousness: patient oriented x3 HEENT Head: Yes normocephalic Mouth: Normal oral and palatal mucosa present Eyes EOM: EOMs intact bilaterally Neck Neck: Yes supple Resp Auscultation: clear to auscultation bilaterally Cardio Jugular venous distension: no JVD Rate: regular rate GI Palpation (GI): Soft to palpation Auscultation: normal bowel sounds Skin General skin exam: no rashes or lesions noted Neuro General: patient oriented x3 and moves all extremities Results Reviewed Nephrology Results: Hgb 9.9 g/dl (14.0-18.0) L 06/11/24 WBC 7.9 X10*3/uL (4.8-10.8) 06/11/24 Plt Count 340 X10*3/uL (160-400) 06/11/24 Sodium 135 mmol/L (135-145) 06/22/24 Potassium 4.2 mmol/L (3.3-5.1) 06/22/24 Chloride 100 mmol/L (96-108) 06/22/24 Carbon Dioxide 26 mmol/L (22-29) 06/22/24 BUN 57 mg/dL (9-16) H 06/22/24 Creatinine 1.48 mg/dL (0.5-1.4) H 06/22/24 Calcium 9.4 mg/dL (8.4-10.2) 05/28/24 Assessment & Plan Assessment & Plan (1) CKD stage 3b, 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: Code(s): N18.32 - Chronic kidney disease, stage 3b Category: Medical Plan Had LIBRA on CKD- serum creatinine back to baseline Continue 20 mg torsemide & 25 mg Spironolactone Shall try to increase Spironolactone at next visit Continue sodium and fluid restriction Follow up in two months; Answered his& daughters questions Orders: Orders Blood Urea Nitrogen 6 Weeks N18.32 - Chronic kidney disease, stage 3b Electrolytes 6 Weeks N18.32 - Chronic kidney disease, stage 3b Creatinine 6 Weeks N18.32 - Chronic kidney disease, stage 3b Medications: Changed From torsemide 80 mg in the AM; 40 mg in the PM 80 mg See Protocol PO BID 240 tabs 0RF To torsemide 20 mg See Protocol PO DAILY 90 tabs 3RF From spironolactone 25 mg See Protocol PO BID@0900,1800 30 tabs 0RF To spironolactone 25 mg See Protocol PO DAILY 90 tabs 3RF Discontinued urea Discontinued Reason: Doctor's Order 1 packet PO DAILY 14 days 14 ea 0RF Coding Level of Care Code Est Pt Level 4 (91210) Diagnoses CKD stage 3b, 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 N18.32
[2024-06-23 16:13] VITALS: BP 98/50; PULSE 78; O2SAT 98; BMI 26.7
== END 2024-06-23 16:39 | disposition home or self-care (01) ==
PROVIDERS: PCP Internal Medicine Sports Medicine; Visit Provider Internal Medicine Nephrology
DX: N18.32 Chronic kidney disease, stage 3b (principal)
CPT/HCPCS: 99214

== ENCOUNTER → 2024-06-23 16:00 | Outpatient (BNVA) | payer MEDICARE, SELFPAY | PROVIDERS: PCP Internal Medicine Sports Medicine; Visit Provider Internal Medicine Nephrology | DX: N18.32 Chronic kidney disease, stage 3b (principal) | CPT/HCPCS: 99212 ==

== ENCOUNTER → 2024-07-16 23:59 | Outpatient (BNV) | payer MEDICARE, SELFPAY ==
--- NOTE | 2024-07-27 08:59 | MHC.OFFVIS ---
Intake Visit Reasons: Remote HF monitoring- [employer] Allergies doxycycline Allergy (Unknown, Verified 06/23/24 16:13) Unknown narcotics Adverse Reaction (Uncoded 02/18/24 14:29) Nausea and Vomiting, hypotensive PFSH Medical History (Updated 05/28/24 @ 19:56 by Watson Wren MD) Hyponatremia Iron deficiency anemia Elevated LFTs CKD (chronic kidney disease) LIBRA (acute kidney injury) Ischemic cardiomyopathy History of torsades de pointes Atherosclerotic cardiovascular disease Elevated serum creatinine Biventricular ICD (implantable cardioverter-defibrillator) in place Syncope RBBB PVD (peripheral vascular disease) Hx of thyroid nodule GERD (gastroesophageal reflux disease) CAD (coronary artery disease) BPH (benign prostatic hyperplasia) Asthma Atrial fibrillation Surgical History Hx of CABG Hx of cardiac cath H/O right knee surgery H/O heart surgery Family History Mother Breast cancer Father Heart attack Brother Stomach cancer Brother Heart disease Social History Household Members: None Housing: House Do you presently have visiting nurse or other home services: Yes (cleaning lady) Alcohol intake: former Comment: pt refusing red socks, alarms, and camera Patient Tobacco Use Status: Former Tobacco user Years Smoked: 25 +/- Advance Directives Date on File: 10/31/23 service: Yes Office Procedures Cardiac Device Check Cardiac Device Check Details: Date of service- 07/16/2024; based on impedance data and physiological variables, there is possible OptiVol fluid accumulation from 07/05/2024 to 07/12/2024. [id number] Cardiac Device Interrogation, cardio physiologic monitor Procedure code (CPT) selection complete Assessment & Plan Assessment & Plan (1) Biventricular ICD (implantable cardioverter-defibrillator) in place: Code(s): Z95.810 - Presence of automatic (implantable) cardiac defibrillator Category: Medical (2) Chronic combined systolic and diastolic CHF (congestive heart failure): Code(s): I50.42 - Chronic combined systolic (congestive) and diastolic (congestive) heart failure Category: Medical Plan x Coding Level of Care Code Procedure Only Diagnoses Biventricular ICD (implantable cardioverter-defibrillator) in place Z95.810 Chronic combined systolic and diastolic CHF (congestive heart failure) I50.42 CPT Codes Cardiac Device Check - Cardiac Device 15: [id number] Cardiac Device Interrogation, cardio physiologic monitor ([id number])
== END ==
PROVIDERS: PCP Internal Medicine Sports Medicine; Visit Provider Internal Medicine
DX: I50.42 Chronic combined systolic (congestive) and diastolic (congestive) heart failure (principal); Z95.810 Presence of automatic (implantable) cardiac defibrillator
CPT/HCPCS: 93297

== ENCOUNTER → 2024-07-16 23:59 | Outpatient (BNV) | payer MEDICARE, SELFPAY ==
--- NOTE | 2024-07-27 15:01 | MHC.OFFVIS ---
Intake Visit Reasons: Remote device check- [employer] Allergies doxycycline Allergy (Unknown, Verified 06/23/24 16:13) Unknown narcotics Adverse Reaction (Uncoded 02/18/24 14:29) Nausea and Vomiting, hypotensive PFSH Medical History (Updated 05/28/24 @ 19:56 by Watson Wren MD) Hyponatremia Iron deficiency anemia Elevated LFTs CKD (chronic kidney disease) LIBRA (acute kidney injury) Ischemic cardiomyopathy History of torsades de pointes Atherosclerotic cardiovascular disease Elevated serum creatinine Biventricular ICD (implantable cardioverter-defibrillator) in place Syncope RBBB PVD (peripheral vascular disease) Hx of thyroid nodule GERD (gastroesophageal reflux disease) CAD (coronary artery disease) BPH (benign prostatic hyperplasia) Asthma Atrial fibrillation Surgical History Hx of CABG Hx of cardiac cath H/O right knee surgery H/O heart surgery Family History Mother Breast cancer Father Heart attack Brother Stomach cancer Brother Heart disease Social History Household Members: None Housing: House Do you presently have visiting nurse or other home services: Yes (cleaning lady) Alcohol intake: former Comment: pt refusing red socks, alarms, and camera Patient Tobacco Use Status: Former Tobacco user Years Smoked: 25 +/- Advance Directives Date on File: 10/31/23 service: Yes Office Procedures Cardiac Device Check Cardiac Device Check Details: Date of service 07/16/2024; Battery life >7 years; normal lead parameters; no treated VT/VF; adequate biv pacing; normal ICD function. [id number] Cardiac Interrogation, implant defibrillator w/interim Procedure code (CPT) selection complete Assessment & Plan Assessment & Plan (1) Biventricular ICD (implantable cardioverter-defibrillator) in place: Code(s): Z95.810 - Presence of automatic (implantable) cardiac defibrillator Category: Medical (2) Chronic combined systolic and diastolic CHF (congestive heart failure): Code(s): I50.42 - Chronic combined systolic (congestive) and diastolic (congestive) heart failure Category: Medical Plan x Coding Level of Care Code Procedure Only Diagnoses Biventricular ICD (implantable cardioverter-defibrillator) in place Z95.810 Chronic combined systolic and diastolic CHF (congestive heart failure) I50.42 CPT Codes Cardiac Device Check - Cardiac Device 13: [id number] Cardiac Interrogation, implant defibrillator w/interim ([id number])
== END ==
PROVIDERS: PCP Internal Medicine Sports Medicine; Visit Provider Internal Medicine
DX: I50.42 Chronic combined systolic (congestive) and diastolic (congestive) heart failure (principal); Z95.810 Presence of automatic (implantable) cardiac defibrillator
CPT/HCPCS: 93295

== ENCOUNTER 2024-08-01 08:56 | Inpatient (IN) | payer MEDICARE, SELFPAY ==
--- NOTE | ~2024-08-01 | CT_ITS ---
CLINICAL HISTORY: fall with head strike, on thinners CT cervical spine without contrast Comparison: None Findings: There is straightening of the normal cervical lordosis. No focal bony malalignment is identified. Bones are osteopenic. No fracture or prevertebral soft tissue swelling. Moderate degenerative disc disease and degenerative facet disease at C4-5, C5-6, and C6-7. Upper airway is patent. 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 Dense vascular calcification of the carotid arteries. Partial visualization of a presumed left-sided pacemaker. IMPRESSION: 1. No acute fracture. 2. Straightening of the normal cervical lordosis. This can be seen with muscle spasm. 3. Multilevel degenerative disc disease and degenerative facet disease. 4. Multifocal vasculopathy. This document has been electronically signed by: Dion Willett MD on 08/01/2024 09:57:02
--- NOTE | ~2024-08-01 | CT_ITS ---
CLINICAL HISTORY: fall with head strike, on thinners CT head without contrast Comparison: None Findings: There is age-appropriate atrophy. The size and shape of the ventricular system is within normal limits for degree of atrophy. [id number] areas of low-attenuation are identified within the periventricular and deep white matter. Hough-white differentiation is well preserved. No midline shift or mass effect. No intracranial hemorrhage. No calvarial fractures. IMPRESSION: 1. No fracture or intracranial hemorrhage. This document has been electronically signed by: Dion Willett MD on 08/01/2024 09:54:59
--- NOTE | ~2024-08-01 | XR_ITS ---
CLINICAL HISTORY: fall, pain Exam: AP, lateral, and oblique views of the left knee. Comparison: None. Findings: Overall bony alignment is anatomic. No acute fracture. Chondrocalcinosis is seen within both the medial and lateral compartments. Additionally, there is calcification of the proximal gastrocnemius tendon. Moderate to severe tricompartmental osteoarthritis with joint space narrowing and osteophyte formation. This is most pronounced at the medial compartment. Small-sized knee joint effusion. There is calcification of the distal quadriceps tendon. Extensive vascular calcifications of the femoral artery, popliteal artery, and calf arteries. Impression: 1. No acute fracture. 2. 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 3. Extensive multifocal vasculopathy. This document has been electronically signed by: Dion Willett MD on 08/01/2024 09:57:54
--- NOTE | 2024-08-01 09:00 | ED.GENADULT ---
HPI - General Adult General Chief complaint: Fall Stated complaint: FALL YESTERDAY, NECK AND LEG PAIN Time Seen by Provider: 08/01/24 09:00 Source: patient, EMS, RN notes reviewed and old records reviewed Mode of arrival: EMS Limitations: no limitations History of Present Illness ED Provider: Jose Miguel HPI narrative: Patient is an 83-year-old male with history of CKD 3, anemia, afib on Xarelto, CAD, torsades, biventricular ICD, atherosclerotic CVD, asthma presenting to the ED with complaint of neck pain and left knee pain after a fall yesterday. States that he was feeling more weak than normal yesterday, had nausea and dry heaves, then while getting into bed his legs gave out and he fell to the floor. Denies loss of consciousness. Denies head strike. States that after he fell he had an episode of incontinence/diarrhea, then vomited. Arrives in c-collar from EMS. Denies fevers, chest pain, palpitations, dyspnea. Denies abdominal, back, or flank pain. MD complaint: neck and knee pain s/p fall Onset (ago): hour(s) Related Data Home Medications ?Medication ?Instructions ?Recorded ?Confirmed finasteride 5 mg tablet 5 mg PO DAILY@0906/18/21 05/19/24 pantoprazole 40 mg tablet,delayed 40 mg PO DAILY@0606/18/21 05/19/24 release allopurinol 100 mg tablet 100 mg PO DAILY@0900 10/27/23 05/19/24 lorazepam 0.5 mg tablet 0.5 mg PO DAILY PRN Anxiety 03/04/24 05/19/24 levothyroxine 88 mcg tablet 88 mcg DAILY@0604/12/24 05/19/24 Previous Rx's ?Medication ?Instructions ?Recorded magnesium oxide 400 mg PO BID 90 days #180 tabs 12/08/23 amiodarone 200 mg tablet 200 mg PO DAILY@1700 #90 tabs 03/18/24 rivaroxaban 15 mg tablet (Xarelto) 15 mg PO DAILY@1700 #90 tabs 03/22/24 gabapentin 600 mg tablet 600 mg PO BEDTIME 90 days #90 tabs 03/23/24 atorvastatin 40 mg tablet 40 mg PO BEDTIME #90 tabs 04/09/24 spironolactone 25 mg tablet 25 mg PO DAILY #90 tabs 01/08/25 torsemide 20 mg tablet 20 mg PO DAILY #90 tabs 06/23/24 Allergies Allergy/AdvReac Type Severity Reaction Status Date / Time doxycycline Allergy Unknown Unknown Verified 08/01/24 09:10 narcotics AdvReac Nausea and Uncoded 08/01/24 09:10 Vomiting, hypotensive Review of Systems Review of Systems: As per HPI Yes all other systems are reviewed and are negative Constitutional: Constitutional: Reports as per HPI [facility] Past Medical History Medical History (Updated 08/01/24 @ 16:06 by Shanta Gillespie NP) Hyponatremia Iron deficiency anemia Elevated LFTs CKD (chronic kidney disease) LIBRA (acute kidney injury) Ischemic cardiomyopathy History of torsades de pointes Atherosclerotic cardiovascular disease Elevated serum creatinine Biventricular ICD (implantable cardioverter-defibrillator) in place Syncope RBBB PVD (peripheral vascular disease) Hx of thyroid nodule GERD (gastroesophageal reflux disease) CAD (coronary artery disease) BPH (benign prostatic hyperplasia) Asthma Atrial fibrillation Surgical History Hx of CABG Hx of cardiac cath H/O right knee surgery H/O heart surgery Family History Family History Mother Breast cancer Father Heart attack Brother Stomach cancer Brother Heart disease Social History Social History Household Members: None Housing: House Do you presently have visiting nurse or other home services: Yes (cleaning lady) Alcohol intake: former Comment: pt refusing red socks, alarms, and camera Patient Tobacco Use Status: Former Tobacco user Years Smoked: 25 +/- Smoked in Last 30 Days: No Use of substances other than those prescribed or required for medical reasons: No Advance Directives: Yes Advance Directives on File: Yes Advance Directives Date on File: 10/31/23 Do you have a plan to hurt others: No Plan service: Yes Physical Exam ED Vital Signs: Vital Signs - 24 hr 08/01/24 09:08 08/01/24 14:26 Temperature 97.6 F Pulse Rate 67 60 Respiratory Rate 18 11 L Blood Pressure 118/57 L Pulse Oximetry 100 Oxygen Delivery Method Room Air BMI result Body Mass Index 26.9 Vital signs have been reviewed and appear to be correct. Blood pressure normal. Heart rate normal. Respiratory rate normal. Temperature normal. Oxygen saturation normal. Const General: cooperative, healthy appearing and no acute distress Orientation/consciousness: oriented to person, oriented to place, oriented to time and patient oriented x3 Limitations: no limitations [facility] Head: Yes normocephalic and Yes atraumatic Ears: external ears normal General nose exam: Normal external nose present Face and sinus: Yes face symmetric Mouth: oropharynx normal and moist mucous membranes Throat: Yes uvula midline Eyes Pupils: Equal, round and reactive pupils present Neck Neck: Yes normal visual inspection and Yes trachea midline Chest Chest palpation & inspection: normal inspection of the chest and normal palpation of entire chest wall Resp Effort & Inspection: normal respiratory effort and able to speak in complete sentences Auscultation: clear to auscultation bilaterally Cardio Rate: regular rate Rhythm: regular rhythm Heart sounds: S1 normal heart sound present and S2 normal heart sound present GI Palpation (GI): Soft to palpation and nontender Auscultation: normoactive bowel sounds General: Yes no CVA tenderness Back/Spine/Pelvis Back: no CVA tenderness Cervical Spine: collar present Skin General skin exam: elasticity normal and turgor normal Neuro General: oriented to person, oriented to place, oriented to time, patient oriented x3, moves all extremities, no focal motor deficits and CN's II-XI intact bilaterally Cranial nerves: Yes Equal, round and reactive pupils present Cognition (Neuro): normal cognition Extrem General: Yes full ROM, Yes no pedal edema and Yes no calf tenderness Left lower extremity: knee Details: normal to inspection, tenderness Location: of the tibial tuberosity and normal ROM Psych Mental Status: mental status grossly normal Affect: normal affect Thought process: Normal thought process present Medications Administered Discontinued Medications Generic Name Dose Route Start Last Admin Trade Name Freq PRN Reason Stop Dose Admin Albuterol Sulfate 5 mg 08/01/24 14:00 08/01/24 14:27 Albuterol Sulfate (0.083%) 2.5 Mg/3 Ml Vial.Neb INHALE 08/01/24 14:01 Not Given ONCE ONE Albuterol Sulfate 10 mg 08/01/24 14:14 08/01/24 14:25 Albuterol Sulfate (0.083%) 2.5 Mg/3 Ml Vial.Neb INHALE 08/01/24 14:15 10 mg ONCE ONE Administration Dextrose 25 gm 08/01/24 10:27 08/01/24 11:28 Dextrose 50 % 25 Gm/50 Ml Syringe IVPUSH 08/01/24 10:28 25 gm ONCE ONE Administration Calcium Gluconate 2 gm in 100 mls @ 50 mls/hr 08/01/24 10:27 08/01/24 13:28 Calcium Gluconate IV 08/01/24 12:26 Infused ONCE ONE Infusion Insulin Human Regular 5 unit 08/01/24 10:08/01/24 11:28 Insulin Regular, Human 100 Unit/Ml 10 Ml Vial IVPUSH 08/01/24 10:28 5 unit ONCE ONE Administration Sodium Zirconium Cyclosilicate 10 gm 08/01/24 10:08/01/24 11:28 Sodium Zirconium Cyclosilicate 10 Gm Powd.Pack PO 08/01/24 10:28 10 gm ONCE ONE Administration Medical Decision Making Medical Decision Making MDM Narrative: Patient is an 83-year-old male with history of CKD 3, anemia, afib on Xarelto, CAD, torsades, biventricular ICD, atherosclerotic CVD, asthma presenting to the ED with complaint of neck pain and left knee pain after a fall yesterday. On exam patient is awake, A+Ox3, VS WNL, afebrile, normal neurological exam without focal deficits, physical exam findings as above. Given reported symptoms and physical exam findings, initial differential includes but is not limited to viral illness, covid, flu, electrolyte abnormality, ICH, skull or cervical vertebral fracture or subluxation. Labs notable for hyperkalemia, mild hyponatremia, BUN/Cr consistent with prior values, no evidence of LIBRA, elevated troponin consistent with prior values but will recheck. Lokelma, calcium gluconate, insulin and dextrose ordered. Patient reports history of abnormal K/Na levels. X-ray left knee notable for small effusion, no acute fracture. CT head and C-spine notable for no evidence of ICH, skull or cervical vertebral fracture or subluxation. My interpretation is in agreement with the radiologist's interpretation. EKG shows AV dual paced rhythm. No evidence of infection on urinalysis. Viral serology negative. Repeat troponin downtrending. Repeat potassium 5.6, albuterol ordered. Patient signed out to KOREY Martinez pending repeat BMP. Differential Diagnosis Differential Diagnoses: The differential diagnosis associated with the presentation includes Admission/Observation Consideration of admission/observation: Escalation of care including admission/observation considered Patient would have been admitted to the hospital had their work up had any findings where hospital admission was appropriate and their clinical presentation warranted hospital admission. Lab Data [facility] Lab Attestation statement: I reviewed the patient's lab results. As [per MDM 08/01/24 09:51 08/01/24 13:29 Labs: Lab Results 08/01/24 08/01/24 08/01/24 Range/Units 09:51 09:59 13:29 WBC 9.7 (4.8-10.8) X10*3/uL RBC 3.75 L (4.60-5.80) X10*6/uL Hgb 12.1 L D (14.0-18.0) g/dl Hct 36.5 L D (42.0-52.0) % MCV 97.3 (80.0-98.0) fL MCH 32.3 (27.0-33.0) pg MCHC 33.2 (31.0-36.0) g/dl RDW 19.6 H (11.0-16.0) % Plt Count 272 (160-400) X10*3/uL MPV 10.4 (9.4-12.4) fL Immature Gran % (Auto) 1.4 H (0.0-0.4) % Neut % (Auto) 83.2 H (45-73) % Lymph % (Auto) 8.0 L (20-40) % Graves % (Auto) 6.5 (2-11) % Eos % (Auto) 0.6 (0-4) % Baso % (Auto) 0.3 (0-2) % Lymph # (Auto) 0.8 L (1.2-4.9) X10*3/uL Graves # (Auto) 0.6 (0.1-1.2) X10*3/uL Eos # (Auto) 0.1 (0.0-0.4) X10*3/uL Baso # (Auto) 0.0 (0.0-0.2) X10*3/uL Abs Immat Gran (auto) 0.14 H (0.00-0.03) X10*3/uL Absolute Neuts (auto) 8.0 (2.0-8.3) x10*3/uL Absolute Nucleated RBC 0.000 (0.0-0.012) X10*3/uL Nucleated RBC % (auto) 0.0 (0.0-0.2) /100WBC PT 17.2 H D (10.9-12.4) SEC INR 1.5 H (0.9-1.1) Sodium 131 L 131 L (135-145) mmol/L Potassium 6.2 H* D 5.6 H (3.3-5.1) mmol/L Chloride 97 100 (96-108) mmol/L Carbon Dioxide 19 L 20 L (22-29) mmol/L Anion Gap 21 H 17 (12-20) BUN 80 H 78 H (9-16) mg/dL Creatinine 1.72 H 1.69 H (0.5-1.4) mg/dL Estim Creat Clear Calc 30.4 31.0 Estimated GFR 38 39 Random Glucose 91 99 (60-115) mg/dL Calcium 9.4 9.2 (8.4-10.2) mg/dL Magnesium 2.5 (1.6-2.6) mg/dL Total Bilirubin 1.3 H (0.0-1.0) mg/dL AST 42 H (5-37) U/L ALT 20 (0-40) U/L Alkaline Phosphatase 140 H (39-117) U/L Troponin I High Sens 151.6 H* 144.1 H* (<3.5-35.0) ng/L Total Protein 7.2 (6.5-8.0) g/dL Albumin 4.1 (3.5-5.0) g/dL Urine Color Yellow Urine Appearance Clear Urine pH 8.5 (5.0-9.0) Ur Specific [place] 1.010 (1.005-1.025) Urine Protein Negative (Neg-Trace) mg/dL Urine Glucose (UA) Negative (Negative) mg/dL Urine Ketones Negative (Negative) mg/dL Urine Blood Negative (Negative) Urine Nitrite Negative (Negative) Ur Leukocyte Esterase Negative (Negative) Influenza Type A (PCR) NEGATIVE (Negative) Influenza Type B (PCR) NEGATIVE (Negative) RSV RNA Qual (PCR) NEGATIVE (Negative) SARS-CoV-2 RNA (RT-PCR) NEGATIVE (Negative) Independent Interpretation I performed an independent interpretation of an: EKG (AV dual paced rhythm, rate 64 bpm, normal SC interval), Plain X-Ray and CT Scan Interpretation: X-ray left knee notable for small effusion, no acute fracture. CT head and C-spine notable for no evidence of ICH, skull or cervical vertebral fracture or subluxation. Radiology Impression Discussion of test interpretation with radiology: I have reviewed the radiologist's reading. Radiologist Impression: CT head without contrast Comparison: None Findings: There is age-appropriate atrophy. The size and shape of the ventricular system is within normal limits for degree of atrophy. [id number] areas of low-attenuation are identified within the periventricular and deep white matter. Hough-white differentiation is well preserved. No midline shift or mass effect. No intracranial hemorrhage. No calvarial fractures. IMPRESSION: 1. No fracture or intracranial hemorrhage. CT cervical spine without contrast Comparison: None Findings: There is straightening of the normal cervical lordosis. No focal bony malalignment is identified. Bones are osteopenic. No fracture or prevertebral soft tissue swelling. Moderate degenerative disc disease and degenerative facet disease at C4-5, C5-6, and C6-7. Upper airway is patent. 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 Dense vascular calcification of the carotid arteries. Partial visualization of a presumed left-sided pacemaker. IMPRESSION: 1. No acute fracture. 2. Straightening of the normal cervical lordosis. This can be seen with muscle spasm. 3. Multilevel degenerative disc disease and degenerative facet disease. 4. Multifocal vasculopathy. Exam: AP, lateral, and oblique views of the left knee. Comparison: None. Findings: Overall bony alignment is anatomic. No acute fracture. Chondrocalcinosis is seen within both the medial and lateral compartments. Additionally, there is calcification of the proximal gastrocnemius tendon. Moderate to severe tricompartmental osteoarthritis with joint space narrowing and osteophyte formation. This is most pronounced at the medial compartment. Small-sized knee joint effusion. There is calcification of the distal quadriceps tendon. Extensive vascular calcifications of the femoral artery, popliteal artery, and calf arteries. Impression: 1. No acute fracture. 2. 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 3. Extensive multifocal vasculopathy. External Record Review External record reviewed: Inpatient record, Office record and Outpatient record Discharge Plan Discharge Clinical Impression: Fall, Hyperkalemia Patient Disposition: Still a Patient Prescriptions: No Action magnesium oxide 400 mg magnesium tablet 400 mg PO BID 90 Days Qty: 180 1RF amiodarone 200 mg tablet 200 mg PO DAILY@1700 Qty: 90 3RF Xarelto 15 mg tablet 15 mg PO DAILY@1700 Qty: 90 3RF Rx Instructions: must administer with evening meal gabapentin 600 mg tablet 600 mg PO BEDTIME 90 Days Qty: 90 1RF atorvastatin 40 mg tablet 40 mg PO BEDTIME Qty: 90 3RF allopurinol 100 mg tablet 100 mg PO DAILY@0900 levothyroxine 88 mcg tablet 88 mcg DAILY@0600 pantoprazole 40 mg tablet,delayed release (DR/EC) 40 mg PO DAILY@0630 finasteride 5 mg tablet 5 mg PO DAILY@0900 lorazepam 0.5 mg tablet 0.5 mg PO DAILY PRN (Reason: Anxiety) torsemide 20 mg tablet 20 mg PO DAILY Qty: 90 3RF Protocol: Hold for SBP< HOLD for SBP < : 90 spironolactone 25 mg tablet 25 mg PO DAILY Qty: 90 3RF Protocol: Hold for SBP< HOLD for SBP < : 90 Print Language: Turkish
[2024-08-01 09:08] VITALS: BP 118/57; BP 140/70; PULSE 67; PULSE 70; RESP 18; TEMP 36.4; O2SAT 100; O2SAT 98; BMI 26.9
--- NOTE | 2024-08-01 09:30 | ECG_ITS ---
Test Reason : WEAKNESS Blood Pressure : */* mmHG Vent. Rate : 64 BPM Atrial Rate : 64 BPM P-R Int : 122 ms QRS Dur : 158 ms QT Int : 524 ms P-R-T Axes : * 163 70 degrees QTcB Int : 540 ms AV dual-paced rhythm Biventricular pacemaker detected Abnormal ECG When compared with ECG of 12-Apr-2024 10:06, No significant change was found Referred By: Shanta Gillespie Electronically Signed By: EDISON HOWARD
--- OUTSIDE RECORDS SUMMARY | 2024-08-01 09:30 | XMS_ITS | Encounter Summary ---
Author Organization [facility] Address [address] [place] [address] Care Team Providers Care Supervisor Hand Workers Name Role Phone Alfred Solitario MD Primary Care Provider [phone] Encounter Details Date Type Department Care Team (Late st Contact Info) Description 05/05/2024 Lab Requisition [facility] - Main Lab [address] [facility] [address] [place] [address] Alfred Solitario MD [address] [place] [id number] Unspecified atrial fibrillation (CMS/HCC) Social History Tobacco Use Types Packs/Day Years Used Date Smoking Tobacco: Former Cigarettes Q uit: 06/16/1979 Smokeless Tobacco: Never Sex and Gender Information Value Date Recorded Sex Assigned at Not on file Legal Sex Male 1:17 PM EST Gender Identity Not on file Sexual Orientation Not on file documented as of this encounter Plan of Treatment Not on file documented as of this encounter Procedures Procedure Name Priority Date/Time Associated Diagnosis Comments COMPLETE BLOOD COUNT Routine 05/06/2024 5:46 AM EST Unspecified atrial fibrillation (CMS/HCC) BASIC METABOLIC PANEL Routine 05/06/2024 5:46 AM EST Unspecified atrial fibrillation (CMS/HCC) documented in this encounter Results * (ABNORMAL) Basic metabolic panel (05/06/2024 5:46 AM EST) Sodium 131(L) 133 - 145 mmol/L LAB CHEMISTRY METHOD 05/06/2024 11:36 AM EST [facility] Potassium 4.9 3.5 - 5.5 mmol/L LAB CHEMISTRY METHOD 05/06/2024 11:36 AM [facility] Chloride 94(L) 96 - 110 mmol/L LAB CHEMISTRY METHOD 05/06/2024 11:36 AM [facility] CO2 28 21 - 32 mmol/L LAB CHEMISTRY METHOD 05/06/2024 11:36 AM [facility] Anion Gap 9 3 - 11 LAB CHEMISTRY METHOD 05/06/2024 11:36 AM [facility] Glucose 105(H) 70 - 100 mg/dL LAB CHEMISTRY METHOD 05/06/2024 11:36 AM [facility] BUN 93(H) 5 - 25 mg/dL LAB CHEMISTRY METHOD 05/06/2024 11:36 AM [facility] Creatinine 1.68(H) 0.70 - 1.30 mg/dL LAB CHEMISTRY METHOD 05/06/2024 11:36 AM [facility] eGFR 41(L) >=60 mL/min/1. 73m2 LAB CHEMISTRY METHOD 05/06/2024 11:36 AM [facility] Comment:Calculation based on the??Chronic Kidney Disease Epidemiology Collaboration (CKD-EPI) equation refit??without adjustment for race. BUN/Creatinine Ratio 55.4 LAB CHEMISTRY METHOD 05/06/2024 11:36 AM [facility] Calcium 8.7 8.5 - 10.5 mg/dL LAB CHEMISTRY METHOD 05/06/2024 11:36 AM [facility] Blood Venous blood specimen / Unknown Venipuncture / Unknown 05/06/2024 5:46 AM EST 05/06/2024 10:49 AM EST us Alfred Solitario MD LAB BLOOD ORDERABLES Final Resu lt [facility] [address] [place] [address], [place] [phone] * (ABNORMAL) Complete blood count (05/06/2024 5:46 AM EST) [facility] WBC 8.8 4.8 - 10.8 K/mcL LAB HEMETOLOGY METHOD 05/06/2024 11:17 AM [facility] RBC 3.00(L) 4.50 - 5.50 M/mcL LAB HEMETOLOGY METHOD 05/06/2024 11:17 AM [facility] Hemoglobin 8.7(L) 13.5 - 17.5 g/dL LAB HEMETOLOGY METHOD 05/06/2024 11:17 AM [facility] Hematocrit 27.9(L) 42.0 - 54.0 % LAB HEMETOLOGY METHOD 05/06/2024 11:17 AM [facility] MCV 93.3 79.0 - 98.0 FL LAB HEMETOLOGY METHOD 05/06/2024 11:17 AM [facility] MCH 29.1 27.0 - 32.0 pcg LAB HEMETOLOGY METHOD 05/06/2024 11:17 AM [facility] MCHC 31.2(L) 32.0 - 37.0 g/dL LAB HEMETOLOGY METHOD 05/06/2024 11:17 AM [facility] RDW 23.5(H) 11.0 - 15.0 % LAB HEMETOLOGY METHOD 05/06/2024 11:17 AM [facility] Platelets 310 130 - 400 K/mcL LAB HEMETOLOGY METHOD 05/06/2024 11:17 AM [facility] MPV 10.8 7.0 - 11.0 FL LAB HEMETOLOGY METHOD 05/06/2024 11:17 AM [facility] NRBC 0.0 <1.0 % LAB HEMETOLOGY METHOD 05/06/2024 11:17 AM [facility] NRBC Absolute 0.00 <0.10 K/mcL LAB HEMETOLOGY METHOD 05/06/2024 11:17 AM EST [facility] Blood Venous blood specimen / Unknown Venipuncture / Unknown 05/06/2024 5:46 AM EST 05/06/2024 10:49 AM EST us Alfred Solitario MD LAB BLOOD ORDERABLES Final Resu lt [facility] [address] [place] [address], documented in this encounter Visit Diagnoses Diagnosis Unspecified atrial fibrillation (CMS/HCC) documented in this encounter Care Teams Supervisor Hand Workers Relationship Specialty Start Date End Date Alfred Solitario MD [address] [place] [address] PCP - General Internal Medicine 05/02/24 documented as of this encounter
--- OUTSIDE RECORDS SUMMARY | 2024-08-01 09:30 | XMS_ITS | Encounter Summary ---
Author Organization [facility] Address [address] [place] [address] Care Team Providers Care Sports Fitness And Wellness Director Name Role Phone Alfred Solitario MD Primary Care Provider [phone] Encounter Details Date Type Department Care Team (Late st Contact Info) Description 05/02/2024 Lab Requisition [facility] - Main Lab [address] [facility] [place] [address] Alfred Solitario MD [address] [place] [address] Acute on chronic systolic (congestive) heart failure (CMS/HCC) Social History Tobacco Use Types Packs/Day [...] Associated Diagnosis Comments COMPLETE BLOOD COUNT Routine 05/02/2024 7:02 AM EST Acute on chronic systolic (congestive) heart failure (CMS/HCC) COMPREHENSIVE METABOLIC PANEL Routine 05/02/2024 7:02 AM EST Acute on chronic systolic (congestive) heart failure (CMS/HCC) documented in this encounter Results * (ABNORMAL) Comprehensive metabolic panel (05/02/2024 7:02 AM EST) Sodium 125(L) 133 - 145 mmol/L LAB CHEMISTRY METHOD 05/02/2024 8:[address] [facility] Potassium 3.9 3.5 - 5.5 mmol/L LAB CHEMISTRY METHOD 05/02/2024 8:[address] [facility] Chloride 82(L) 96 - 110 mmol/L LAB CHEMISTRY METHOD 05/02/2024 8:[address] [facility] CO2 32 21 - 32 mmol/L LAB CHEMISTRY METHOD 05/02/2024 8:[address] [facility] Anion Gap 11 3 - 11 LAB CHEMISTRY METHOD 05/02/2024 8:[address] [facility] Glucose 107(H) 70 - 100 mg/dL LAB CHEMISTRY METHOD 05/02/2024 8:[address] [facility] BUN 106(H) 5 - 25 mg/dL LAB CHEMISTRY METHOD 05/02/2024 8:[address] [facility] Creatinine 2.16(H) 0.70 - 1.30 mg/dL LAB CHEMISTRY METHOD 05/02/2024 8:[address] [facility] eGFR 30(L) >=60 mL/min/1. 73m2 LAB CHEMISTRY METHOD 05/02/2024 8:[address] [facility] Comment:Calculation based on the??Chronic Kidney Disease Epidemiology Collaboration (CKD-EPI) equation refit??without adjustment for race. BUN/Creatinine Ratio 49.1 LAB CHEMISTRY METHOD 05/02/2024 8:[address] [facility] Calcium 8.4(L) 8.5 - 10.5 mg/dL LAB CHEMISTRY METHOD 05/02/2024 8:[address] [facility] AST (SGOT) 37 10 - 42 unit/L LAB CHEMISTRY METHOD 05/02/2024 8:[address] [facility] ALT (SGPT) 24 10 - 60 unit/L LAB CHEMISTRY METHOD 05/02/2024 8:[address] [facility] Alkaline Phosphatase 144(H) 42 - 121 unit/L LAB CHEMISTRY METHOD 05/02/2024 8:[address] [facility] Total Protein 5.5(L) 6.0 - 8.0 g/dL LAB CHEMISTRY METHOD 05/02/2024 8:[address] [facility] Albumin 3.3 3.2 - 5.0 g/dL LAB CHEMISTRY METHOD 05/02/2024 8:[address] [facility] Total Bilirubin 0.7 0.0 - 1.4 mg/dL LAB CHEMISTRY METHOD 05/02/2024 8:[address] [facility] Blood Venous blood specimen / Unknown Venipuncture / Unknown 05/02/2024 7:02 AM EST 05/02/2024 7:44 AM EST us Alfred Solitario MD LAB BLOOD ORDERABLES Final Resu lt [facility] [address] [place] [address], [place] [phone] * (ABNORMAL) Complete blood count (05/02/2024 7:02 AM EST) WBC 9.6 4.8 - 10.8 K/mcL LAB HEMETOLOGY METHOD 05/02/2024 8:[address] [facility] RBC 3.00(L) 4.50 - 5.50 M/mcL LAB HEMETOLOGY METHOD 05/02/2024 8:[address] [facility] Hemoglobin 8.6(L) 13.5 - 17.5 g/dL LAB HEMETOLOGY METHOD 05/02/2024 8:[address] [facility] Hematocrit 26.9(L) 42.0 - 54.0 % LAB HEMETOLOGY METHOD 05/02/2024 8:[address] [facility] MCV 89.4 79.0 - 98.0 FL LAB HEMETOLOGY METHOD 05/02/2024 8:04 AM EST [facility] MCH 28.6 27.0 - 32.0 pcg LAB HEMETOLOGY METHOD 05/02/2024 8:[address] [facility] MCHC 32.0 32.0 - 37.0 g/dL LAB HEMETOLOGY METHOD 05/02/2024 8:[address] [facility] RDW 23.0(H) 11.0 - 15.0 % LAB HEMETOLOGY METHOD 05/02/2024 8:[address] [facility] Platelets 304 130 - 400 K/mcL LAB HEMETOLOGY METHOD 05/02/2024 8:[address] [facility] MPV 10.4 7.0 - 11.0 FL LAB HEMETOLOGY METHOD 05/02/2024 8:[address] [facility] NRBC 0.0 <1.0 % LAB HEMETOLOGY METHOD 05/02/2024 8:[address] [facility] NRBC Absolute 0.00 <0.10 K/mcL LAB HEMETOLOGY METHOD 05/02/2024 8:[address] [facility] Blood Venous blood specimen / Unknown Venipuncture / Unknown 05/02/2024 7:02 AM EST 05/02/2024 7:44 AM EST us Alfred Solitario MD LAB BLOOD ORDERABLES Final Resu lt [facility] [address] [place] [address], documented in this encounter Visit Diagnoses Diagnosis Acute on chronic systolic (congestive) heart failure (CMS/HCC) documented in this encounter Care Teams Sports Fitness And Wellness Director Relationship Specialty Start Date End Date Alfred Solitario MD [address] [place] [address] PCP - General Internal Medicine 05/02/24 documented as of this encounter
--- OUTSIDE RECORDS SUMMARY | 2024-08-01 09:30 | XMS_ITS | Encounter Summary ---
Author Organization [facility] Address [address] [place] [address] Care Team Providers Care Utilities Ground Worker Name Role Phone Alfred Solitario MD Primary Care Provider [phone] Encounter Details Date Type Department Care Team (Late st Contact Info) Description 05/07/2024 Lab Requisition [facility] - Main Lab [address] [facility] [place] [address] Alfred Solitario MD [address] [place] [phone] Unspecified atrial fibrillation (CMS/HCC); Chronic systolic (congestive) heart failure (CMS/HCC) Social History [...] Associated Diagnosis Comments COMPLETE BLOOD COUNT Routine 05/10/2024 5:29 AM EST Unspecified atrial fibrillation (CMS/HCC) Chronic systolic (congestive) heart failure (CMS/HCC) COMPREHENSIVE METABOLIC PANEL Routine 05/10/2024 5:29 AM EST Unspecified atrial fibrillation (CMS/HCC) Chronic systolic (congestive) heart failure (CMS/HCC) documented in this encounter Results * (ABNORMAL) Comprehensive metabolic panel (05/10/2024 5:29 AM EST) Sodium 133 133 - 145 mmol/L LAB CHEMISTRY METHOD 05/10/2024 10:38 AM [facility] Potassium 4.5 3.5 - 5.5 mmol/L LAB CHEMISTRY METHOD 05/10/2024 10:38 AM [facility] Chloride 97 96 - 110 mmol/L LAB CHEMISTRY METHOD 05/10/2024 10:38 AM [facility] CO2 27 21 - 32 mmol/L LAB CHEMISTRY METHOD 05/10/2024 10:38 AM [facility] Anion Gap 9 3 - 11 LAB CHEMISTRY METHOD 05/10/2024 10:38 AM [facility] Glucose 122(H) 70 - 100 mg/dL LAB CHEMISTRY METHOD 05/10/2024 10:38 AM [facility] BUN 109(H) 5 - 25 mg/dL LAB CHEMISTRY METHOD 05/10/2024 10:38 AM [facility] Creatinine 1.96(H) 0.70 - 1.30 mg/dL LAB CHEMISTRY METHOD 05/10/2024 10:38 AM [facility] eGFR 34(L) >=60 mL/min/1. 73m2 LAB CHEMISTRY METHOD 05/10/2024 10:38 AM [facility] Comment:Calculation based on the??Chronic Kidney Disease Epidemiology Collaboration (CKD-EPI) equation refit??without adjustment for race. BUN/Creatinine Ratio 55.6 LAB CHEMISTRY METHOD 05/10/2024 10:38 AM [facility] Calcium 8.4(L) 8.5 - 10.5 mg/dL LAB CHEMISTRY METHOD 05/10/2024 10:38 AM [facility] AST (SGOT) 34 10 - 42 unit/L LAB CHEMISTRY METHOD 05/10/2024 10:38 AM [facility] ALT (SGPT) 25 10 - 60 unit/L LAB CHEMISTRY METHOD 05/10/2024 10:38 AM [facility] Alkaline Phosphatase 158(H) 42 - 121 unit/L LAB CHEMISTRY METHOD 05/10/2024 10:38 AM EST [facility] Total Protein 5.4(L) 6.0 - 8.0 g/dL LAB CHEMISTRY METHOD 05/10/2024 10:38 AM [facility] Albumin 2.9(L) 3.2 - 5.0 g/dL LAB CHEMISTRY METHOD 05/10/2024 10:38 AM [facility] Total Bilirubin 0.5 0.0 - 1.4 mg/dL LAB CHEMISTRY METHOD 05/10/2024 10:38 AM [facility] Blood Venous blood specimen / Unknown 05/10/2024 5:29 AM EST 05/10/2024 9:43 AM EST Alfred Solitario MD LAB BLOOD ORDERABLES Final Resu lt [facility] [address] [place] [address], [place] [phone] * (ABNORMAL) Complete blood count (05/10/2024 5:29 AM EST) WBC 9.7 4.8 - 10.8 K/[facility] LAB HEMETOLOGY METHOD 05/10/2024 9:54 AM [facility] RBC 2.90(L) 4.50 - 5.50 /[facility] LAB HEMETOLOGY METHOD 05/10/2024 9:54 AM [facility] Hemoglobin 8.4(L) 13.5 - 17.5 g/dL LAB HEMETOLOGY METHOD 05/10/2024 9:54 AM [facility] Hematocrit 26.9(L) 42.0 - 54.0 % LAB HEMETOLOGY METHOD 05/10/2024 9:54 AM [facility] MCV 93.1 79.0 - 98.0 FL LAB HEMETOLOGY METHOD 05/10/2024 9:54 AM EST [facility] MCH 29.1 27.0 - 32.0 pcg LAB HEMETOLOGY METHOD 05/10/2024 9:54 AM [facility] MCHC 31.2(L) 32.0 - 37.0 g/dL LAB HEMETOLOGY METHOD 05/10/2024 9:54 AM EST [facility] RDW 23.0(H) 11.0 - 15.0 % LAB HEMETOLOGY METHOD 05/10/2024 9:54 AM EST [facility] Platelets 292 130 - 400 K/mcL LAB HEMETOLOGY METHOD 05/10/2024 9:54 AM [facility] MPV 10.5 7.0 - 11.0 FL LAB HEMETOLOGY METHOD 05/10/2024 9:54 AM EST [facility] NRBC 0.0 <1.0 % LAB HEMETOLOGY METHOD 05/10/2024 9:54 AM [facility] NRBC Absolute 0.00 <0.10 K/mcL LAB HEMETOLOGY METHOD 05/10/2024 9:54 AM [facility] Blood Venous blood specimen / Unknown Venipuncture / Unknown 05/10/2024 5:29 AM EST 05/10/2024 9:43 AM EST us Alfred Solitario MD LAB BLOOD ORDERABLES Final Resu lt [facility] [address] [place] [address], documented in this encounter Visit Diagnoses Diagnosis Unspecified atrial fibrillation (CMS/HCC) Chronic systolic (congestive) heart failure (CMS/HCC) documented in this encounter Care Teams Utilities Ground Worker Relationship Specialty Start Date End Date Alfred Solitario MD [address] [place] [id number] PCP - General Internal Medicine 05/02/24 documented as of this encounter
--- OUTSIDE RECORDS SUMMARY | 2024-08-01 09:30 | XMS_ITS ---
Author Organization 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) ACTIVE 06/24/2023 HYPERTENSIVE HEART DISEASE W ITH HEART FAILURE (I11.0 - ICD-10-CM) ACTIVE 06/24/2023 HYPERLIPIDEMIA, UNSPECIFIED (E78.5 - ICD-10-CM) ACTIVE 06/24/2023 ELEVATION OF LEVELS OF LIVER TRANSAMINASE LEVELS (R74.01 - ICD-10-CM) ACTIVE 06/27/2023 WEAKNESS (R53.1 - ICD-10-CM) ACTIVE 06/25/2023 Results * Complete Metabolic Profile without eGFR Performed by: [facility] [address] [facility] [address] Component Value Range Date GLUCOSE (DXOne) 106 mg/dL 70-99 06/30/2023 0 1:10 pm EST SODIUM (DXOne) 138 mmol/L 136-145 06/30/2023 01 :10 pm EST POTASSIUM (DXOne) 4.6 mmol/L 3.5-5.1 06/30/2023 01:10 pm EST CHLORIDE (DXOne) 99 mmol/L 98-107 06/30/2023 01:10 pm EST CARBON DIOXIDE (DXOne) 29 mmol/L 22-31 06/30 01:10 pm EST ANGAP (TRANS) (DXOne) 10.0 2023 01:10 pm EST BUN (DXOne) 58 mg/dL 6-20 06/30/2023 01:1 0 pm EST CREATININE (DXOne) 1.3 mg/dL 0.5-1.2 4 01:10 pm EST BUN/CREAT RATIO (TRANS) (DXOne) 45.0 6.0-25.0 06/30/2023 01:10 pm EST CALCIUM (DXOne) 8.6 mg/dL 8.6-10.2 06/30/2023 0 1:10 pm EST TBIL (DXOne) 1.24 mg/dL 0.10-1.20 06/30/2023 01:1 0 pm EST TOTAL PROTEIN (DXOne) 5.5 g/dL 6.0-8.3 2023 01:10 pm EST ALBUMIN (DXOne) 3.4 g/dL 3.5-5.2 06/30/2023 0 1:10 pm EST ALT (SGPT) (DXOne) 64 U/L 0-41 4 01:10 pm EST AST (SGOT) (DXOne) 31 U/L 0-40 4 01:10 pm EST ALKPHOS (DXOne) 132 U/L 45-115 06/30/2023 0 1:10 pm EST AG RATIO (TRANS) 1.6 06/30/2023 01:10 pm EST GLOBULIN (TRANS) (DXOne) 2.0 g/dL 2.0-3.5 01:10 pm EST * Individual Tests: CBC with auto Differential / Complete Metabolic Profile without eGFR / MAGNESIUM Performed by: [facility] [address] [place] [address] [phone] Component Value Range Date MAGNESIUM (DXOne) 2.03 mg/dL 1.70-2.80 06/26/2023 01:30 pm EST * CBC with auto Differential Performed by: [facility] [address] [facility] [address] [phone] Component Value Range Date WBC 8.7 K/ul 4.1-10.9 06/26/2023 01:3 0 pm EST RBC 3.21 L M/uL 4.70-6.10 06/26/2023 01:3 0 pm EST HGB 10.0 L g/dL 14.0-18.0 06/26/2023 01:3 0 pm EST HCT 30.7 L % 42.0-52.0 06/26/2023 01:3 0 pm EST MCV 95.5 H fL 80.0-95.0 06/26/2023 01:3 0 pm EST MCH 31.1 pg 26.0-32.0 06/26/2023 01:3 0 pm EST MCHC 32.6 g/dL 31.0-36.0 06/26/2023 01:3 0 pm EST RDW 14.8 % 11.5-16.0 06/26/2023 01:3 0 pm EST PLT 342 K/uL 130-440 06/26/2023 01:3 0 pm EST NE# 5.9 X10^3/uL 2.0-6.9 06/26/2023 01:3 0 pm EST LY# 1.6 X10^3/uL 0.6-3.4 06/26/2023 01:3 0 pm EST MO# 1.2 H X10^3/uL 0.0-0.9 06/26/2023 01 :30 pm EST EO# 0.0 X10^3/uL 0.0-0.7 06/26/2023 01:3 0 pm EST BA# 0.1 X10^3/uL 0.0-0.2 06/26/2023 01:3 0 pm EST NE% 67.2 % 37.0-80.0 06/26/2023 01:3 0 pm EST LY% 18.3 % 10.0-50.0 06/26/2023 01:3 0 pm EST MO% 13.6 H % 0.1-12.0 06/26/2023 01:3 0 pm EST EO% 0.3 % 0.0-7.0 06/26/2023 01:3 0 pm EST BA% 0.6 % 0.0-2.0 06/26/2023 01:3 0 pm EST NRBC 0 % 06/26/2023 01:3 0 pm EST * Complete Metabolic Profile without eGFR Performed by: [facility] [address] [facility] [address] [phone] Component Value Range Date GLUCOSE (DXOne) 95 mg/dL 70-99 06/26/2023 0 1:30 pm EST SODIUM (DXOne) 139 mmol/L 136-145 06/26/2023 01 :30 pm EST POTASSIUM (DXOne) 4.0 mmol/L 3.5-5.1 06/26/2023 01:30 pm EST CHLORIDE (DXOne) 100 mmol/L 98-107 06/26/2023 01:30 pm EST CARBON DIOXIDE (DXOne) 27 mmol/L 22-31 06/26 01:30 pm EST ANGAP (TRANS) (DXOne) 12.0 2023 01:30 pm EST BUN (DXOne) 38 mg/dL 6-20 06/26/2023 01:3 0 pm EST CREATININE (DXOne) 0.8 mg/dL 0.5-1.2 4 01:30 pm EST BUN/CREAT RATIO (TRANS) (DXOne) 46.1 6.0-25.0 06/26/2023 01:30 pm EST CALCIUM (DXOne) 8.8 mg/dL 8.6-10.2 06/26/2023 0 1:30 pm EST TBIL (DXOne) 1.50 mg/dL 0.10-1.20 06/26/2023 01:3 0 pm EST TOTAL PROTEIN (DXOne) 5.5 g/dL 6.0-8.3 2023 01:30 pm EST ALBUMIN (DXOne) 3.5 g/dL 3.5-5.2 06/26/2023 0 1:30 pm EST ALT (SGPT) (DXOne) 130 U/L 0-41 4 01:30 pm EST AST (SGOT) (DXOne) 46 U/L 0-40 4 01:30 pm EST ALKPHOS (DXOne) 143 U/L 45-115 06/26/2023 0 1:30 pm EST AG RATIO (TRANS) 1.6 06/26/2023 01:30 pm EST GLOBULIN (TRANS) (DXOne) 2.0 g/dL 2.0-3.5 01/ 04/2024 01:30 pm EST Encounters Encounter Performer Performer Role Encounter Diagnoses Location Date Discharge - Discharged / Transferred to home under care of organized home health service organization - [facility] - Private Home/apartment with [facility] 06/24/2023 03:36 pm EST - 07/06/2023 11:53 am EST Immunizations Vaccine Date TB 2 Step Mantoux Skin Test 06/26/2023 0 6:25 am EST Social History
--- OUTSIDE RECORDS SUMMARY | 2024-08-01 09:30 | XMS_ITS | Continuity of Care Document ---
Author Organization [facility] Address [address] [place] [address]- Care Team Providers Care Railroad Auditor Name Role Phone Kerri GUILLAUME, Prince Nunez Primary Care Physician Encounter [facility] Date(s): 07/01/24 - 07/31/24 [facility] [address] [place], [place] [address] Encounter Type: Triage Allergies, Adverse Reactions, Alerts [...] virus vaccine, inactivated 04/09/15 Dom rded SARS-CoV-2(COVID-19)mRNA-LNP vac([id number]) 03/27/23 Recorded tetanus/diphtheria/pertussis, acel(Tdap) 1 10/21/22 Recorded tetanus/diphtheria/pertussis, acel(Tdap) 10/21/22 Recorded [id number] 12y+ bivalent booster vax 03/15/22 Recorded SARS-CoV-2 mRNA ([id number]) vax 3/31/22 Recorded SARS-CoV-2 (COVID-19) mRNA BNT-162b2 [...] Recorded 1Result Comment: Unit: Unknown Route: Intramuscular Inventory Transcriber: GlaxoSmithKline 2Result Comment: Unit: Unknown Route: Intramuscular Inventory Transcriber: Sanofi Pasteur 3Result Comment: Unit: Unknown Route: Intramuscular Inventory Transcriber: [employer] 4Result Comment: Unit: Unknown Route: Intramuscular Inventory Transcriber: GlaxoSmithKline 5Result Comment: Unit: Unknown Route: Intramuscular Inventory Transcriber: Gl[employer]Nordic [employer] Medications allopurinol 100 mg oral tablet 1, tablet, By Mouth, Daily, # 90 tablet, Refills 1, Maintenance, 07/15/24 8:45:00 AM EST, [facility], 161.5, cm, 06/07/24 14:50:00 EST, Height, 71.5, kg, 06/07/24 14:50:00 EST, Dry Weight Start Date: 07/15/24 Status: Ordered Quantity: 90.0 Unit: tablet Repeat number: 1 amiodarone 200 mg oral tablet 400 mg, 2, tablet, By Mouth, 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, living coach, Refills 0, Maintenance, 03/30/24 1:54:00 PM EDT, [...] 3 Refills, Maintenance, 11/03/23 10:45:00 AM EDT, [facility], 161.5, cm, [...] Refills, Maintenance, 04/12/21 4:16:00 PM EDT, Capsule, [id number], Partial fill upon patient request if the [...] 9:02:00 AM EST, Route to Pharmacy Electronically, [facility], Partial fill upon [...] AM, # 90 tablet, 1 Refills, Maintenance, 07/26/24 6:06:00 PM EST, Tablet, [facility], Partial fill upon patient request if the prescriptionis for a schedule II opioid drug., 161.5, cm, 06/07/24 14:50:00 EST, Height, 71.5, kg, 06/07/24 14:50:00 EST, Dry Weight Start Date: 07/26/24 Status: Ordered Quantity: 90.0 Unit: tablet Repeat [...] Refills, Maintenance, 12/16/23 4:27:00 PM EDT, Powder, [facility][id number], Partial fill upon patient request if the prescription is for a schedule II opioid drug., 161.5, cm, 12/16/23 15:56:00 EDT, Height, 87.7, kg, 12/16/23 15:56:00 EDT, Dry Weight Start Date: 12/16/23 Status: Ordered Quantity: 30.0 Unit: each Repeat number: 2 Vitamin D 16158 iu oral capsule 50,000 International_Units, By Mouth, [...] Care team information Care Team Personnel Name: Bathel RN, Marie Position: [facility] RN Member Role: Primary Care Nurse Name: Jackeline Salgado Position: [facility] Outreach Member Role: Lifetime Consulting Physician Name: Maday Gonzalez RN Position: [facility] cigarette machines mechanic Member Role: Chisel Grinder Name: Prince Manning MD Position: [facility] Physician - Primary Care Member Role: PCP Address: [address] [place] [address] Adult & Pediatric Medicine [address] Telecom: Name: Tiera Recinos RN Position: [facility] RN Member Role: Primary Care Nurse Care [...]
--- OUTSIDE RECORDS SUMMARY | 2024-08-01 09:30 | XMS_ITS | Encounter Summary ---
Author Organization [facility] Address [address] [place] [address] Care Team Providers Care Carbon Plant Grinder Name Role Phone Alfred Solitario MD Primary Care Provider [phone] Encounter Details Date Type Department Care Team (Late st Contact Info) Description 05/03/2024 Lab Requisition [facility] - Main Lab [address] [facility] [place] [address] Alfred Solitario MD [address] [place] [phone] Chronic kidney disease, stage 3b (CMS/HCC); Unspecified atrial fibrillation (CMS/HCC); Chronic systolic (congestive) [...] Associated Diagnosis Comments COMPLETE BLOOD COUNT Routine 05/03/2024 5:04 AM EST Chronic kidney disease, stage 3b (CMS/HCC) Unspecified atrial fibrillation (CMS/HCC) Chronic systolic (congestive) heart failure (CMS/HCC) COMPREHENSIVE METABOLIC PANEL Routine 05/03/2024 5:04 AM EST Chronic kidney disease, stage 3b (CMS/HCC) Unspecified atrial fibrillation (CMS/HCC) Chronic systolic (congestive) heart failure (CMS/HCC) documented in this encounter Results * (ABNORMAL) Comprehensive metabolic panel (05/03/2024 5:04 AM EST) Sodium 125(L) 133 - 145 mmol/L LAB CHEMISTRY METHOD 05/03/2024 11:20 AM [facility] Potassium 4.5 3.5 - 5.5 mmol/L LAB CHEMISTRY METHOD 05/03/2024 11:20 AM [facility] Chloride 84(L) 96 - 110 mmol/L LAB CHEMISTRY METHOD 05/03/2024 11:20 AM [facility] CO2 30 21 - 32 mmol/L LAB CHEMISTRY METHOD 05/03/2024 11:20 AM [facility] Anion Gap 11 3 - 11 LAB CHEMISTRY METHOD 05/03/2024 11:20 AM [facility] Glucose 108(H) 70 - 100 mg/dL LAB CHEMISTRY METHOD 05/03/2024 11:20 AM [facility] BUN 107(H) 5 - 25 mg/dL LAB CHEMISTRY METHOD 05/03/2024 11:20 AM [facility] Creatinine 2.04(H) 0.70 - 1.30 mg/dL LAB CHEMISTRY METHOD 05/03/2024 11:20 AM [facility] eGFR 32(L) >=60 mL/min/1. 73m2 LAB CHEMISTRY METHOD 05/03/2024 11:20 AM [facility] Comment:Calculation based on the??Chronic Kidney Disease Epidemiology Collaboration (CKD-EPI) equation refit??without adjustment for race. BUN/Creatinine Ratio 52.5 LAB CHEMISTRY METHOD 05/03/2024 11:20 AM [facility] Calcium 8.5 8.5 - 10.5 mg/dL LAB CHEMISTRY METHOD 05/03/2024 11:20 AM [facility] AST (SGOT) 34 10 - 42 unit/L LAB CHEMISTRY METHOD 05/03/2024 11:20 AM [facility] ALT (SGPT) 24 10 - 60 unit/L LAB CHEMISTRY METHOD 05/03/2024 11:20 AM [facility] Alkaline Phosphatase 141(H) 42 - 121 unit/L LAB CHEMISTRY METHOD 05/03/2024 11:20 AM [facility] Total Protein 5.6(L) 6.0 - 8.0 g/dL LAB CHEMISTRY METHOD 05/03/2024 11:20 AM [facility] Albumin 3.3 3.2 - 5.0 g/dL LAB CHEMISTRY METHOD 05/03/2024 11:20 AM [facility] Total Bilirubin 0.7 0.0 - 1.4 mg/dL LAB CHEMISTRY METHOD 05/03/2024 11:20 AM [facility] Blood Venous blood specimen / Unknown Venipuncture / Unknown 05/03/2024 5:04 AM EST 05/03/2024 9:46 AM EST us Alfred Solitario MD LAB BLOOD ORDERABLES Final Resu lt [facility] [address] [place] [address], * (ABNORMAL) Complete blood count (05/03/2024 5:04 AM EST) WBC 9.1 4.8 - 10.8 K/mcL LAB HEMETOLOGY METHOD 05/03/2024 10:44 AM [facility] RBC 2.90(L) 4.50 - 5.50 M/mcL LAB HEMETOLOGY METHOD 05/03/2024 10:44 AM [facility] Hemoglobin 8.4(L) 13.5 - 17.5 g/dL LAB HEMETOLOGY METHOD 05/03/2024 10:44 AM [facility] Hematocrit 26.2(L) 42.0 - 54.0 % LAB HEMETOLOGY METHOD 05/03/2024 10:44 AM EST [facility] MCV 91.0 79.0 - 98.0 FL LAB HEMETOLOGY METHOD 05/03/2024 10:44 AM [facility] MCH 29.2 27.0 - 32.0 pcg LAB HEMETOLOGY METHOD 05/03/2024 10:44 AM [facility] MCHC 32.1 32.0 - 37.0 g/dL LAB HEMETOLOGY METHOD 05/03/2024 10:44 AM [facility] RDW 23.0(H) 11.0 - 15.0 % LAB HEMETOLOGY METHOD 05/03/2024 10:44 AM [facility] Platelets 302 130 - 400 K/mcL LAB HEMETOLOGY METHOD 05/03/2024 10:44 AM [facility] MPV 10.6 7.0 - 11.0 FL LAB HEMETOLOGY METHOD 05/03/2024 10:44 AM EST [facility] NRBC 0.0 <1.0 % LAB HEMETOLOGY METHOD 05/03/2024 10:44 AM [facility] NRBC Absolute 0.00 <0.10 K/mcL LAB HEMETOLOGY METHOD 05/03/2024 10:44 AM [facility] Blood Venous blood specimen / Unknown Venipuncture / Unknown 05/03/2024 5:04 AM EST 05/03/2024 9:46 AM EST us Alfred Solitario MD LAB BLOOD ORDERABLES Final Resu lt [facility] [address] [place] [address], documented in this encounter Visit Diagnoses Diagnosis Chronic kidney disease, stage 3b (CMS/HCC) Unspecified atrial fibrillation (CMS/HCC) Chronic systolic (congestive) heart failure (CMS/HCC) documented in this encounter Care Teams [employer] Relationship Specialty Start Date End Date Alfred Solitario MD [address] [place] [id number] PCP - General Internal Medicine 05/02/24 documented as of this encounter
--- OUTSIDE RECORDS SUMMARY | 2024-08-01 09:30 | XMS_ITS | Continuity of Care Document ---
Author Organization [facility] Address [address] [place] [address]- Care Team Providers Care Automatic Punch Press Operator Name Role Phone Kerri GUILLAUME, Prince Nunez Primary Care Physician [phone] En[place] [facility] Date(s): 06/14/24 - 07/14/24 [facility] [address] [place], [place] [address] Encounter Type: Triage Allergies, Adverse Reactions, Alerts [...] virus vaccine, inactivated 04/09/15 Dom rded SARS-CoV-2(COVID-19)mRNA-LNP vac([id number]) 03/27/23 Recorded tetanus/diphtheria/pertussis, acel(Tdap) 1 10/21/22 Recorded tetanus/diphtheria/pertussis, acel(Tdap) 10/21/22 Recorded [id number] 12y+ bivalent booster vax 03/15/22 Recorded SARS-CoV-2 mRNA ([id number]) vax 3/31/22 Recorded SARS-CoV-2 (COVID-19) mRNA BNT-162b2 [...] Recorded 1Result Comment: Unit: Unknown Route: Intramuscular Appraisal Specialist: GlaxCouplewiseine 2Result Comment: Unit: Unknown Route: Intramuscular Appraisal Specialist: Web Performanceofi Pasteur 3Result Comment: Unit: Unknown Route: Intramuscular Appraisal Specialist: Seqirus 4Result Comment: Unit: Unknown Route: Intramuscular Appraisal Specialist: Classiqsine 5Result Comment: Unit: Unknown Route: Intramuscular Appraisal Specialist: [employer] Medications allopurinol 100 mg oral tablet 100 [...] tablet, By Mouth, 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, clip baker, Refills 0, Maintenance, 03/30/24 1:54:00 PM EDT, [...] 3 Refills, Maintenance, 11/03/23 10:45:00 AM EDT, [facility] WBP, 161.5, cm, 09/15/23 14:00:00 [...] Refills, Maintenance, 04/12/21 4:16:00 PM EDT, Capsule, [id number], Partial fill upon patient request if the [...] 9:02:00 AM EST, Route to Pharmacy Electronically, [facility], Partial fill upon patient request [...] Refills, Maintenance, 03/30/24 2:05:00 PM EDT, Tablet, [facility], Partial fill upon patient request [...] Refills, Maintenance, 02/09/24 1:19:00 PM EDT, Tablet, [facility], Partial fill upon patientrequest if [...] 4:27:00 PM EDT, Powder, [id number], Partial fill upon patient request if the prescription is for a schedule II opioid drug., 161.5, cm, 12/16/23 15:56:00 EDT, Height, 87.7, kg, 12/16/23 15:56:00 EDT, Dry Weight Start Date: 12/16/23 Status: Ordered Quantity: 30.0 Unit: each Repeat number: 2 Vitamin D 45073 iu oral capsule 50,000 International_Units, By Mouth, [...] Team Personnel Name: Marie Trinidad RN Position: [facility] RN Member Role: Primary Care Nurse Name: Jackeline Salgado Position: [facility] Outreach Member Role: Lifetime Consulting Physician Name: Carlos CHAPARRO, Maday Position: [facility] ship liner Member Role: Fitness Consultant Name: Kerri GUILLAUME, Prince Nunez Position: [facility] Physician - Primary Care Member Role: PCP Address: [address] [place] [address] Adult & Pediatric Medicine [place], [place] [address] Telecom: Name: Tiera Recinos RN Position: [facility] RN Member Role: Primary Care Nurse Care [...]
--- OUTSIDE RECORDS SUMMARY | 2024-08-01 09:30 | XMS_ITS | Clinical Summary ---
Author Organization [address] Address [address] [place] [address] Phone Care Team Providers Care Windlasser Name Role Phone Alfred Solitario MD Primary Care Provider [phone] Encounters Date Type Department Care Team Description 05/13/[address] [facility] Lab [address] [place] [phone] Alfred Solitario MD Unspecified atrial fibrillation (CMS/HCC) 05/07/[address] [facility] Lab [address] [place] [phone] Alfred Solitario MD Unspecified atrial fibrillation (CMS/HCC); Chronic systolic (congestive) heart failure (CMS/HCC) 05/05/[address] [facility] Lab [address] [place] [phone] Alfred Solitario MD Unspecified atrial fibrillation (CMS/HCC) 05/03/[address] [facility] Lab [address] [place] [phone] Alfred Solitario MD Chronic kidney disease, stage 3b (CMS/HCC); Unspecified atrial fibrillation (CMS/HCC); Chronic systolic (congestive) heart failure (CMS/HCC) 05/02/[address] [facility] Lab [address] [place] [phone] Alfred Solitario MD Acute on chronic systolic (congestive) heart failure (CMS/HCC) 05/01/[address] [facility] [address] [facility] [place] [address] Alfred Solitario MD Chronic kidney disease, stage 3b (CMS/HCC); Unspecified atrial fibrillation (CMS/HCC); Chronic systolic (congestive) heart failure (CMS/HCC) from Last 3 Months Surgical History Surgery Date Site/Laterality Comments CORONARY ARTERY BYPASS GRAFT 03/2004 PROCEDURE: HISTORICAL CABG; COMMENT: x3 OTHER SURGICAL HISTORY 11/2019 Right PROCEDURE: ---- OTHER ----; COMMENT: extensive right common femoral artery proximal profunda and proximal SFA enarterectomy with vein patch angioplasty reconstruction Medical History Medical History Date Comments Anxiety disorder 08/14/2017 DX:Anxiety diso rder Arteriosclerosis of carotid artery 07/30/2016 DX:Arteriosclerosis of carotid artery Arthritis 10/29/2016 DX:Arthritis Atherosclerosis with limb cl audication (CMS/HCC) 07/30/2016 DX:Atherosclerosis with limb claudication (HCC) Atrial fibrillation (CMS/HCC) 02/12/2018 DX :Atrial fibrillation (HCC) BPH (benign prostatic hyperplasia) 03/11/2017 DX:BPH (benign prostatic hyperplasia) Cataract 09/04/2013 DX:Cataract Chronic insomnia 05/28/2016 DX:Chronic inso mnia Chronic sinusitis 09/04/2013 DX:Chronic sin usitis Diverticulosis 10/11/2015 DX:Diverticulosi s Gout 10/18/2015 DX:Gout Hyperlipidemia 10/29/2016 DX:Hyperlipidemi a Hypertension 10/29/2016 DX:Hypertension Internal hemorrhoids 10/11/2015 DX:Internal hemorrhoids Obstructive sleep apnea 09/20/2016 DX:Obstr uctive sleep apnea Peripheral vascular disease (CMS/HCC) 10/29/2016 DX:Peripheral vascular disease (HCC) Thyroid nodule 05/28/2016 DX:Thyroid nodul e 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) 06/23/2018 DX:Type 2 diabetes mellitus with cataract (HCC) Type 2 diabetes mellitus wit h peripheral vascular disease (CMS/HCC) 10/29/2016 DX:Type 2 diabet es mellitus with peripheral vascular disease (HCC) Erectile dysfunction 05/06/2019 DX:Erectile dysfunction GERD (gastroesophageal reflux disease) 9 DX:GERD (gastroesophageal reflux disease) Obesity (BMI 30-39.9) 01/01/2019 DX:Obesity (BMI 30-39.9) CAD (coronary artery disease) 10/26/2018 DX :CAD (coronary artery disease); COMMENT: S/p CABG 2003 Social History Tobacco Use Types Packs/Day Years Used Date Smoking Tobacco: Former Cigarettes Q uit: 06/16/1979 Smokeless Tobacco: Never Sex and Gender Information Value Date Recorded Sex Assigned at Not on file Legal Sex Male 1:17 PM EST Gender Identity Not on file Sexual Orientation Not on file Obstetrics History Plan of Treatment Health Maintenance Due Date Last Done Comments Diabetes: Annual Foot Exam 1952 Diabetes: Annual Retina Eye Exam 1952 DTaP,Tdap,and Td Vaccines (1 - Tdap) 1961 RSV Immunization Patients 60+ Years Old (1 - 1-dose 75+ series) 2017 Cholesterol Screening (Lipid Panel) 05/14/2022 Depression Screening 05/14/2022 Falls Risk Assessment 05/14/2022 Medicare Annual Wellness Visit 05/14/2022 Social Influencers of Health Screening 05/14/2022 Diabetes: Annual Urine Albumin-Creatinine Ratio (uACR) 05/30/2022 Diabetes: Blood Sugar Control Test (HGBA1C) 05/30/2022 COVID-19 Vaccine ( season) 2024 Influenza Vaccine (#1) 2024 , 02/04/2020, 02/26/2019 Diabetes: Annual GFR (Glomerular Filtration Rate) 05/10/2025 05/10/2024, 05/06/2024, 05/03/2024, Additional history exists Hypertension/CHF/CAD Annual BMP Blood Test 05/10/2025 05/10/2024, 05/06/2024, 05/03/2024, Additional history exists Pneumococcal Vaccine: 50+ Years Completed 02/12/2018, 02/22/2016 Zoster Vaccines Completed 02/26/2019, 12/15, 09/06/2008 HIB Vaccines Aged Out No longer eligi ble based on patient's age to complete this topic HPV Vaccines Aged Out No longer eligi ble based on patient's age to complete this topic Hepatitis A Vaccines Aged Out No long er eligible based on patient's age to complete this topic Hepatitis B Vaccines Aged Out No long er eligible based on patient's age to complete this topic IPV Vaccines Aged Out No longer eligi ble based on patient's age to complete this topic MMR Vaccines Aged Out No longer eligi ble based on patient's age to complete this topic Meningococcal ACWY Vaccine Aged Out N o longer eligible based on patient's age to complete this topic Meningococcal B Vacine Aged Out No lo nger eligible based on patient's age to complete this topic RSV Immunization Patients Under 20 months Aged Out No longer eligible based on patient's age to complete this topic Varicella Vaccines Aged Out No longer eligible based on patient's age to complete this topic Procedures Procedure Name Priority Date/Time Associated Diagnosis Comments COMPREHENSIVE METABOLIC PANEL Routine 05/10/2024 5:29 AM EST Unspecified atrial fibrillation (CMS/HCC) Chronic systolic (congestive) heart failure (CMS/HCC) COMPLETE BLOOD COUNT Routine 05/10/2024 5:29 AM EST Unspecified atrial fibrillation (CMS/HCC) Chronic systolic (congestive) heart failure (CMS/HCC) BASIC METABOLIC PANEL Routine 05/06/2024 5:46 AM EST Unspecified atrial fibrillation (CMS/HCC) COMPLETE BLOOD COUNT Routine 05/06/2024 5:46 AM EST Unspecified atrial fibrillation (CMS/HCC) COMPREHENSIVE METABOLIC PANEL Routine 05/03/2024 5:04 AM EST Chronic kidney disease, stage 3b (CMS/HCC) Unspecified atrial fibrillation (CMS/HCC) Chronic systolic (congestive) heart failure (CMS/HCC) COMPLETE BLOOD COUNT Routine 05/03/2024 5:04 AM EST Chronic kidney disease, stage 3b (CMS/HCC) Unspecified atrial fibrillation (CMS/HCC) Chronic systolic (congestive) heart failure (CMS/HCC) COMPREHENSIVE METABOLIC PANEL Routine 05/02/2024 7:02 AM EST Acute on chronic systolic (congestive) heart failure (CMS/HCC) COMPLETE BLOOD COUNT Routine 05/02/2024 7:02 AM EST Acute on chronic systolic (congestive) heart failure (CMS/HCC) COMPREHENSIVE METABOLIC PANEL Routine 05/01/2024 6:27 AM EST Chronic kidney disease, stage 3b (CMS/HCC) Unspecified atrial fibrillation (CMS/HCC) Chronic systolic (congestive) heart failure (CMS/HCC) COMPLETE BLOOD COUNT Routine 05/01/2024 6:27 AM EST Chronic kidney disease, stage 3b (CMS/HCC) Unspecified atrial fibrillation (CMS/HCC) Chronic systolic (congestive) heart failure (CMS/HCC) from Last 3 Months Results * (ABNORMAL) Complete blood count (05/10/2024 5:29 AM EST) Only the most recent of5 resultswithin the time period is included. WBC 9.7 4.8 - 10.8 K/mcL LAB HEMETOLOGY METHOD 05/10/2024 9:54 AM [facility] RBC 2.90(L) 4.50 - 5.50 M/mcL LAB HEMETOLOGY METHOD 05/10/2024 9:54 AM [facility] Hemoglobin 8.4(L) 13.5 - 17.5 g/dL LAB HEMETOLOGY METHOD 05/10/2024 9:54 AM [facility] Hematocrit 26.9(L) 42.0 - 54.0 % LAB HEMETOLOGY METHOD 05/10/2024 9:54 AM [facility] MCV 93.1 79.0 - 98.0 FL LAB HEMETOLOGY METHOD 05/10/2024 9:54 AM [facility] MCH 29.1 27.0 - 32.0 pcg LAB HEMETOLOGY METHOD 05/10/2024 9:54 AM [facility] MCHC 31.2(L) 32.0 - 37.0 g/dL LAB HEMETOLOGY METHOD 05/10/2024 9:54 AM [facility] RDW 23.0(H) 11.0 - 15.0 % LAB HEMETOLOGY METHOD 05/10/2024 9:54 AM [facility] Platelets 292 130 - 400 K/mcL LAB HEMETOLOGY METHOD 05/10/2024 9:54 AM [facility] MPV 10.5 7.0 - 11.0 FL LAB HEMETOLOGY METHOD 05/10/2024 9:54 AM [facility] NRBC 0.0 <1.0 % LAB HEMETOLOGY METHOD 05/10/2024 9:54 AM [facility] NRBC Absolute 0.00 <0.10 K/mcL LAB HEMETOLOGY METHOD 05/10/2024 9:54 AM [facility] Blood Venous blood specimen / Unknown Venipuncture / Unknown 05/10/2024 5:29 AM EST 05/10/2024 9:43 AM EST us Alfred Solitario MD LAB BLOOD ORDERABLES Final Resu lt [facility] [address] [place] [address], * (ABNORMAL) Comprehensive metabolic panel (05/10/2024 5:29 AM EST) Only the most recent of4 resultswithin the time period is included. Sodium 133 133 - 145 mmol/L LAB CHEMISTRY METHOD 05/10/2024 10:38 AM [facility] Potassium 4.5 3.5 - 5.5 mmol/L LAB CHEMISTRY METHOD 05/10/2024 10:38 AM [facility] Chloride 97 96 - 110 mmol/L LAB CHEMISTRY METHOD 05/10/2024 10:38 AM [facility] CO2 27 21 - 32 mmol/L LAB CHEMISTRY METHOD 05/10/2024 10:38 AM [facility] Anion Gap 9 3 - 11 LAB CHEMISTRY METHOD 05/10/2024 10:38 AM [facility] Glucose 122(H) 70 - 100 mg/dL LAB CHEMISTRY METHOD 05/10/2024 10:38 AM [facility] BUN 109(H) 5 - 25 mg/dL LAB CHEMISTRY METHOD 05/10/2024 10:38 AM [facility] Creatinine 1.96(H) 0.70 - 1.30 mg/dL LAB CHEMISTRY METHOD 05/10/2024 10:38 AM [facility] eGFR 34(L) >=60 mL/min/1. 73m2 LAB CHEMISTRY METHOD 05/10/2024 10:38 AM [facility] Comment:Calculation based on the??Chronic Kidney Disease Epidemiology Collaboration (CKD-EPI) equation refit??without adjustment for race. BUN/Creatinine Ratio 55.6 LAB CHEMISTRY METHOD 05/10/2024 10:38 AM [facility] Calcium 8.4(L) 8.5 - 10.5 mg/dL LAB CHEMISTRY METHOD 05/10/2024 10:38 AM [facility] AST (SGOT) 34 10 - 42 unit/L LAB CHEMISTRY METHOD 05/10/2024 10:38 AM [facility] ALT (SGPT) 25 10 - 60 unit/L LAB CHEMISTRY METHOD 05/10/2024 10:38 AM [facility] Alkaline Phosphatase 158(H) 42 - 121 unit/L LAB CHEMISTRY METHOD 05/10/2024 10:38 AM [facility] Total Protein 5.4(L) 6.0 - 8.0 g/dL LAB CHEMISTRY METHOD 05/10/2024 10:38 AM [facility] Albumin 2.9(L) 3.2 - 5.0 g/dL LAB CHEMISTRY METHOD 05/10/2024 10:38 AM [facility] Total Bilirubin 0.5 0.0 - 1.4 mg/dL LAB CHEMISTRY METHOD 05/10/2024 10:38 AM [facility] Blood Venous blood specimen / Unknown 05/10/2024 5:29 AM EST 05/10/2024 9:43 AM EST us Alfred Solitario MD LAB BLOOD ORDERABLES Final Resu lt [facility] [address] [place] [address], [place] [phone] * (ABNORMAL) Basic metabolic panel (05/06/2024 5:46 AM EST) Sodium 131(L) 133 - 145 mmol/L LAB CHEMISTRY METHOD 05/06/2024 11:36 AM [facility] Potassium 4.9 3.5 - 5.5 mmol/L LAB CHEMISTRY METHOD 05/06/2024 11:36 AM [facility] Chloride 94(L) 96 - 110 mmol/L LAB CHEMISTRY METHOD 05/06/2024 11:36 AM [facility] CO2 28 21 - 32 mmol/L LAB CHEMISTRY METHOD 05/06/2024 11:36 AM [facility] Anion Gap 9 3 - 11 LAB CHEMISTRY METHOD 05/06/2024 11:36 AM [facility] Glucose 105(H) 70 - 100 mg/dL LAB CHEMISTRY METHOD 05/06/2024 11:36 AM [facility] BUN 93(H) 5 - 25 mg/dL LAB CHEMISTRY METHOD 05/06/2024 11:36 AM [facility] Creatinine 1.68(H) 0.70 - 1.30 mg/dL LAB CHEMISTRY METHOD 05/06/2024 11:36 AM [facility] eGFR 41(L) >=60 mL/min/1. 73m2 LAB CHEMISTRY METHOD 05/06/2024 11:36 AM [facility] Comment:Calculation based on the??Chronic Kidney Disease Epidemiology Collaboration (CKD-EPI) equation refit??without adjustment for race. BUN/Creatinine Ratio 55.4 LAB CHEMISTRY METHOD 05/06/2024 11:36 AM EST [facility] Calcium 8.7 8.5 - 10.5 mg/dL LAB CHEMISTRY METHOD 05/06/2024 11:36 AM EST [facility] Blood Venous blood specimen / Unknown Venipuncture / Unknown 05/06/2024 5:46 AM EST 05/06/2024 10:49 AM EST Alfred Solitario MD LAB BLOOD ORDERABLES Final Resu lt [facility] [address] [place] [address], [place] [phone] from Last 3 Months Insurance MEDICARE Care Teams Windlasser Relationship Specialty Start Date End Date Alfred Solitario MD [address] [place] [address] PCP - General Internal Medicine 05/02/24
--- OUTSIDE RECORDS SUMMARY | 2024-08-01 09:30 | XMS_ITS | Encounter Summary ---
Author Organization [facility] Address [address] [place] [address] Care Team Providers Care Exchange Underwriting Consultant Name Role Phone Alfred Solitario MD Primary Care Provider [phone] Encounter Details Date Type Department Care Team (Late st Contact Info) Description 05/13/2024 Lab Requisition [facility] Lab [address] [facility] [place] [place] [address] Alfred Solitario MD [address] [place] [phone] Unspecified atrial fibrillation (CMS/HCC) Social History [...] on file documented as of this encounter Visit Diagnoses Diagnosis Unspecified atrial fibrillation (CMS/HCC) documented in this encounter Care Teams Exchange Underwriting Consultant Relationship Specialty Start Date End Date Alfred Solitario MD [address] [place] [address] PCP - General Internal Medicine 05/02/24 documented as of this encounter
--- OUTSIDE RECORDS SUMMARY | 2024-08-01 09:30 | XMS_ITS | Encounter Summary ---
Author Organization [facility] Address [address] [place] [address] Care Team Providers Care Flight Coordinator Name Role Phone Alfred Solitario MD Primary Care Provider [phone] Encounter Details Date Type Department Care Team (Late st Contact Info) Description 05/01/2024 Lab Requisition [facility] - [facility] Lab [address] [facility] [place] [address] Alfred Solitario MD [address] [place] [phone] Chronic kidney disease, stage 3b (CMS/HCC); [...] Associated Diagnosis Comments COMPLETE BLOOD COUNT Routine 05/01/2024 6:27 AM EST Chronic kidney disease, stage 3b (CMS/HCC) Unspecified atrial fibrillation (CMS/HCC) Chronic systolic (congestive) heart failure (CMS/HCC) COMPREHENSIVE METABOLIC PANEL Routine 05/01/2024 6:27 AM EST Chronic kidney disease, stage 3b (CMS/HCC) Unspecified atrial fibrillation (CMS/HCC) Chronic systolic (congestive) heart failure (CMS/HCC) documented in this encounter Results * (ABNORMAL) Comprehensive metabolic panel (05/01/2024 6:27 AM EST) Sodium 123(L) 133 - 145 mmol/L LAB CHEMISTRY METHOD 05/01/2024 8:46 AM [facility] Potassium 3.8 3.5 - 5.5 mmol/L LAB CHEMISTRY METHOD 05/01/2024 8:46 AM [facility] Chloride 78(L) 96 - 110 mmol/L LAB CHEMISTRY METHOD 05/01/2024 8:46 AM [facility] CO2 34(H) 21 - 32 mmol/L LAB CHEMISTRY METHOD 05/01/2024 8:46 AM [facility] Anion Gap 11 3 - 11 LAB CHEMISTRY METHOD 05/01/2024 8:46 AM [facility] Glucose 103(H) 70 - 100 mg/dL LAB CHEMISTRY METHOD 05/01/2024 8:46 AM [facility] BUN 115(H) 5 - 25 mg/dL LAB CHEMISTRY METHOD 05/01/2024 8:46 AM [facility] Creatinine 2.06(H) 0.70 - 1.30 mg/dL LAB CHEMISTRY METHOD 05/01/2024 8:46 AM [facility] LAB eGFR 32(L) >=60 mL/min/1. 73m2 LAB CHEMISTRY METHOD 05/01/2024 8:46 AM [facility] LAB Comment:Calculation based on the??Chronic Kidney Disease Epidemiology Collaboration (CKD-EPI) equation refit??without adjustment for race. BUN/Creatinine Ratio 55.8 LAB CHEMISTRY METHOD 05/01/2024 8:46 AM [facility] Calcium 8.3(L) 8.5 - 10.5 mg/dL LAB CHEMISTRY METHOD 05/01/2024 8:46 AM [facility] AST (SGOT) 38 10 - 42 unit/L LAB CHEMISTRY METHOD 05/01/2024 8:46 AM [facility] ALT (SGPT) 25 10 - 60 unit/L LAB CHEMISTRY METHOD 05/01/2024 8:46 AM [facility] LAB Alkaline Phosphatase 153(H) 42 - 121 unit/L LAB CHEMISTRY METHOD 05/01/2024 8:46 AM [facility] Total Protein 5.5(L) 6.0 - 8.0 g/dL LAB CHEMISTRY METHOD 05/01/2024 8:46 AM [facility] Albumin 3.4 3.2 - 5.0 g/dL LAB CHEMISTRY METHOD 05/01/2024 8:46 AM [facility] Total Bilirubin 0.6 0.0 - 1.4 mg/dL LAB CHEMISTRY METHOD 05/01/2024 8:46 AM [facility] LAB Blood Venous blood specimen / Unknown Venipuncture / Unknown 05/01/2024 6:27 AM EST 05/01/2024 7:26 AM EST us Alfred Solitario MD LAB BLOOD ORDERABLES Final Resu lt [facility] [address] [place] [address], * (ABNORMAL) Complete blood count (05/01/2024 6:27 AM EST) WBC 10.0 4.8 - 10.8 K/[facility] LAB HEMETOLOGY METHOD 05/01/2024 8:15 AM [facility] RBC 3.10(L) 4.50 - 5.50 M/[facility] LAB HEMETOLOGY METHOD 05/01/2024 8:15 AM [facility] Hemoglobin 8.9(L) 13.5 - 17.5 g/dL LAB HEMETOLOGY METHOD 05/01/2024 8:15 AM [facility] Hematocrit 28.0(L) 42.0 - 54.0 % LAB HEMETOLOGY METHOD 05/01/2024 8:15 AM [facility] MCV 89.5 79.0 - 98.0 FL LAB HEMETOLOGY METHOD 05/01/2024 8:15 AM [facility] MCH 28.4 27.0 - 32.0 pcg LAB HEMETOLOGY METHOD 05/01/2024 8:15 AM [facility] LAB MCHC 31.8(L) 32.0 - 37.0 g/dL LAB HEMETOLOGY METHOD 05/01/2024 8:15 AM [facility] LAB RDW 22.6(H) 11.0 - 15.0 % LAB HEMETOLOGY METHOD 05/01/2024 8:15 AM [facility] LAB Platelets 328 130 - 400 K/mcL LAB HEMETOLOGY METHOD 05/01/2024 8:15 AM [facility] MPV 10.8 7.0 - 11.0 FL LAB HEMETOLOGY METHOD 05/01/2024 8:15 AM [facility] LAB NRBC 0.0 <1.0 % LAB HEMETOLOGY METHOD 05/01/2024 8:15 AM [facility] LAB NRBC Absolute 0.00 <0.10 K/mcL LAB HEMETOLOGY METHOD 05/01/2024 8:15 AM [facility] Blood Venous blood specimen / Unknown Venipuncture / Unknown 05/01/2024 6:27 AM EST 05/01/2024 7:26 AM EST us Alfred Solitario MD LAB BLOOD ORDERABLES Final Resu lt [facility] [address] [place] [address], documented in this encounter Visit Diagnoses Diagnosis Chronic kidney disease, stage 3b (CMS/HCC) Unspecified atrial fibrillation (CMS/HCC) Chronic systolic (congestive) heart failure (CMS/HCC) documented in this encounter Care Teams Flight Coordinator Relationship Specialty Start Date End Date Alfred Solitario MD [address] [place] [address] PCP - General Internal Medicine 05/02/24 documented as of this encounter
[2024-08-01 09:56] LABS: MANUAL DIFF FLAG NO
[2024-08-01 09:58] LABS: Basophils Percent Auto 0.3 % (0-2); Eosinophils Absolute Auto 0.1 X10*3/uL (0.0-0.4); Eosinophils Percent Auto 0.6 % (0-4); Hematocrit 36.5 % (42.0-52.0); Hemoglobin 12.1 g/dl (14.0-18.0); Imm Gran Abs Auto 0.14 X10*3/uL (0.00-0.03); Imm Gran Pct Auto 1.4 % (0.0-0.4); Lymphocytes Absolute Auto 0.8 X10*3/uL (1.2-4.9); Mean Corpuscular HGB Conc 33.2 g/dl (31.0-36.0); Mean Corpuscular Hemoglobin 32.3 pg (27.0-33.0); Mean Corpuscular Volume 97.3 fL (80.0-98.0); Mean Platelet Volume 10.4 fL (9.4-12.4); Monocytes Absolute Auto 0.6 X10*3/uL (0.1-1.2); Monocytes Percent Auto 6.5 % (2-11); Neutrophils Percent Auto 83.2 % (45-73); Platelet Count 272 X10*3/uL (160-400); Red Blood Count 3.75 X10*6/uL (4.60-5.80); Red Cell Distribution Width 19.6 % (11.0-16.0); White Blood Count 9.7 X10*3/uL (4.8-10.8)
[2024-08-01 10:07] LABS: INTERNATIONAL NORM RATIO 1.5 (0.9-1.1); Prothrombin Time 17.2 SEC (10.9-12.4)
[2024-08-01 10:07] LABS: Appearance Urine Clear; Color Urine Yellow; Glucose Urine UA Negative (Negative); Leukocyte Esterase Urine Negative (Negative); Nitrite Urine Negative (Negative); PH 8.5 (5.0-9.0); Urine Blood Negative (Negative); Urine Ketones Negative (Negative); Urine Protein Negative (Neg-Trace)
[2024-08-01 10:31] LABS: Alanine Aminotransferase 20 U/L (0-40); Albumin Level 4.1 g/dL (3.5-5.0); Alkaline Phosphatase 140 U/L (39-117); Anion Gap 21 (12-20); Aspartate Amino Transferase 42 U/L (5-37); Bilirubin Total 1.3 mg/dL (0.0-1.0); Blood Urea Nitrogen 80 mg/dL (9-16); Calcium 9.4 mg/dL (8.4-10.2); Carbon Dioxide 19 mmol/L (22-29); Chloride 97 mmol/L (96-108); Creatinine Clr Calc Pharmacy 30.4; Estimated Glomerular Filt Rate 38; Glucose Random 91 mg/dL (60-115); Magnesium 2.5 mg/dL (1.6-2.6); Potassium 6.2 mmol/L (3.3-5.1); Sodium 131 mmol/L (135-145); Total Protein 7.2 g/dL (6.5-8.0)
[2024-08-01 10:37] LABS: Troponin-I High Sensitivity 151.6 ng/L (<3.5-35.0)
[2024-08-01 10:40] LABS: Influenza A PCR NEGATIVE (Negative); Influenza B PCR NEGATIVE (Negative); Resp Syncy Virus RNA Qual PCR NEGATIVE (Negative); SARS COV2 PCR INHOUSE NEGATIVE (Negative)
[2024-08-01] MEDS: Sodium Zirconium Cyclosilicate 10 GM POWD.PACK PO (11:28)
[2024-08-01] MEDS: Insulin Regular, Human 100 UNIT/ML 10 ML VIAL IVPUSH (11:28)
[2024-08-01] MEDS: Dextrose 50 % 25 GM/50 ML SYRINGE IVPUSH (11:28)
[2024-08-01] MEDS: Calcium Gluconate/NaCl,Iso-Osm 2 GM/100 ML PLAST..BAG IV (11:28)
[2024-08-01 13:52] LABS: Anion Gap 17 (12-20); Blood Urea Nitrogen 78 mg/dL (9-16); Calcium 9.2 mg/dL (8.4-10.2); Carbon Dioxide 20 mmol/L (22-29); Chloride 100 mmol/L (96-108); Estimated Glomerular Filt Rate 39; Glucose Random 99 mg/dL (60-115); Potassium 5.6 mmol/L (3.3-5.1); Sodium 131 mmol/L (135-145)
[2024-08-01 14:04] LABS: Troponin-I High Sensitivity 144.1 ng/L (<3.5-35.0)
[2024-08-01] MEDS: Albuterol Sulfate (0.083%) 2.5 MG/3 ML VIAL.NEB 10 MG INHALE (14:25)
[2024-08-01 14:26] VITALS: PULSE 60; RESP 11; O2SAT 100
[2024-08-01 16:54] LABS: Anion Gap 19 (12-20); Blood Urea Nitrogen 73 mg/dL (9-16); Calcium 14.1 mg/dL (8.4-10.2); Carbon Dioxide 17 mmol/L (22-29); Chloride 100 mmol/L (96-108); Creatinine Clr Calc Pharmacy 33.1; Estimated Glomerular Filt Rate 42; Glucose Random 127 mg/dL (60-115); Potassium 4.5 mmol/L (3.3-5.1); Sodium 131 mmol/L (135-145)
[2024-08-01] MEDS: 0.9 % Sodium Chloride 1,000 ML 125 ML IVCONT (18:01)
--- NOTE | 2024-08-01 18:24 | PM.IMHP ---
History of Present Illness Date of Service: 08/01/24 Attending physician on admission: Craig Lombardo Chief Complaint: Fall at home Pt is an 83-year-old female with a PMH significant for?CAD, cardiac arrest in Mar 2023 s/p biventricular ICD in place, paroxysmal AFib on Xarelto, peripheral vascular disease, HFrEF, CKD 3, unspecified asthma, GERD, gout, and KEVIN on nasal CPAP who presents to the ED after fall at home earlier this afternoon. Pt reports he was in his normal state of health earlier in the day, but felt nauseous and weak as he attempted to get out of his chair and walk to the bathroom. Reports both legs collapsed underneath him and he fell to the ground, lightly striking his head on the floor although he broke his fall with his arms. Denies lightheadedness or dizziness. Complains of left leg pain right above and below his knee. Denies hip pain. No chest pain/pressure, palpitations. Denies fever, chills, or cough. No SOB or difficulty breathing. Denies diarrhea or abdominal pain. In the ED pt with soft BP as low as 118/57, vitals otherwise WNL. Labs were significant for sodium 131, potassium 6.2, creatinine 1.72, t bili 1.3, AST 42, alk phos 140, and serial troponins flat at 151.6 and 144.1. Tested negative for COVID/RSV/Flu. UA negative for UTI. CT?of head and cervical spine negative for acute abnormality. Left knee xray negative for fracture but showed arthropathy and extensive multifocal vasculopathy. Pt was treated with Lokelma, regular insulin 5 unit IV, albuterol, calcium gluconate, and IVF. Pt will be admitted to the hospital for treatment and further evaluation of generalized weakness in the setting of acute hyperkalemia secondary to CKD and medication. Review of Systems Review of Systems: Negative except for that which is stated in the HPI. [facility] Medical History Hyponatremia Iron deficiency anemia Elevated LFTs CKD (chronic kidney disease) LIBRA (acute kidney injury) Ischemic cardiomyopathy History of torsades de pointes Atherosclerotic cardiovascular disease Elevated serum creatinine Biventricular ICD (implantable cardioverter-defibrillator) in place Syncope RBBB PVD (peripheral vascular disease) Hx of thyroid nodule GERD (gastroesophageal reflux disease) CAD (coronary artery disease) BPH (benign prostatic hyperplasia) Asthma Atrial fibrillation Family History Mother Breast cancer Father Heart attack Brother Stomach cancer Brother Heart disease Surgical History Hx of CABG Hx of cardiac cath H/O right knee surgery H/O heart surgery Social History Household Members: None Housing: House Do you presently have visiting nurse or other home services: Yes Alcohol intake: former Comment: pt refusing red socks, alarms, and camera Patient Tobacco Use Status: Former Tobacco user Years Smoked: 25 +/- Smoked in Last 30 Days: No Use of substances other than those prescribed or required for medical reasons: No Currently Displaying Signs/Symptoms of Drug Intoxication Withdrawal: No Have you been hit, kicked, punched, or otherwise hurt by someone within the past year? If so, by whom?: No Are you made to feel afraid or neglected: No Advance Directives: Yes Advance Directives on File: Yes Advance Directives Date on File: 10/31/23 Do you have a plan to hurt others: No Plan Eating poorly because of decreased appetite: No service: No Meds Allergies Allergy/AdvReac Type Severity Reaction Status Date / Time doxycycline Allergy Unknown Unknown Verified 08/01/24 09:10 narcotics AdvReac Nausea and Uncoded 08/01/24 09:10 Vomiting, hypotensive Active Medications: Current Medications Sodium Chloride (Ns) 1,000 mls @ 125 mls/hr IVCONT .Q8H EDVIN Last Admin: 08/01/24 18:01 Dose: 125 mls/hr Home Medications ?Medication ?Instructions ?Recorded ?Confirmed ?Last Taken ?Type finasteride 5 mg tablet 5 mg PO DAILY@0900 06/18/21 08/02/24 08/01/24 History pantoprazole 40 mg tablet,delayed 40 mg PO BID 06/18/21 08/02/24 08/01/24 History release allopurinol 100 mg tablet 100 mg PO DAILY@0900 10/27/23 08/02/24 08/01/24 History lorazepam 0.5 mg tablet 0.5 mg PO DAILY PRN Anxiety 03/04/24 08/02/24 08/01/24 History levothyroxine 88 mcg tablet 88 mcg DAILY@0600 04/12/24 08/02/24 08/01/24 History calcium carbonate 500 mg PO BEDTIME 08/02/24 08/02/24 08/01/24 History cholecalciferol (vitamin D3) 25 25 mcg PO DAILY 08/02/24 08/02/24 08/01/24 History mcg (1,000 unit) tablet (Vitamin D3) magnesium oxide 400 mg PO DAILY@1700 08/02/24 08/02/24 08/01/24 History Physical Exam Vital Signs and Narrative: Vital Signs: Last Vital Signs Temp 97.6 F 08/01/24 09:08 Pulse 60 08/01/24 14:26 Resp 11 L 08/01/24 14:26 BP 118/57 L 08/01/24 09:08 Pulse Ox 100 08/01/24 09:08 O2 Del Method Room Air 08/01/24 09:08 BMI result Body Mass Index 26.9 General: AOx3, no acute distress Resp: CTA bilaterally CVS: S1, S2, RRR GI: +BS, NT, no distention Skin: Warm, dry Neuro: Cranial nerves II-XII grossly intact bilaterally. Motor grossly intact bilaterally Extremities: No edema. Left knee and lower extremity ROM reduced secondary to pain. Left knee diffusely tender to palpation. Psych: Appropriate affect Results Labs 08/02/24 06:19 08/02/24 06:19 Labs: Laboratory Results - last 24 hr 08/01/24 08/01/24 08/01/24 09:51 09:59 13:29 MCV 97.3 MCH 32.3 MCHC 33.2 RDW 19.6 H Plt Count 272 MPV 10.4 Immature Gran % (Auto) 1.4 H Neut % (Auto) 83.2 H Lymph % (Auto) 8.0 L [place] % (Auto) 6.5 Eos % (Auto) 0.6 Baso % (Auto) 0.3 Lymph # (Auto) 0.8 L [place] # (Auto) 0.6 Eos # (Auto) 0.1 Baso # (Auto) 0.0 Abs Immat Gran (auto) 0.14 H Absolute Neuts (auto) 8.0 Absolute Nucleated RBC 0.000 Nucleated RBC % (auto) 0.0 PT 17.2 H D INR 1.5 H Anion Gap 21 H 17 Estim Creat Clear Calc 30.4 31.0 Estimated GFR 38 39 Random Glucose 91 99 Calcium 9.4 9.2 Magnesium 2.5 Total Bilirubin 1.3 H AST 42 H ALT 20 Alkaline Phosphatase 140 H Total Protein 7.2 Albumin 4.1 Urine Color Yellow Urine Appearance Clear Urine pH 8.5 Ur Specific [place] 1.010 Urine Protein Negative Urine Glucose (UA) Negative Urine Ketones Negative Urine Blood Negative Urine Nitrite Negative Ur Leukocyte Esterase Negative Influenza Type A (PCR) NEGATIVE Influenza Type B (PCR) NEGATIVE RSV RNA Qual (PCR) NEGATIVE SARS-CoV-2 RNA (RT-PCR) NEGATIVE 08/01/24 16:33 MCV MCH MCHC RDW Plt Count MPV Immature Gran % (Auto) Neut % (Auto) Lymph % (Auto) [place] % (Auto) Eos % (Auto) Baso % (Auto) Lymph # (Auto) [place] # (Auto) Eos # (Auto) Baso # (Auto) Abs Immat Gran (auto) Absolute Neuts (auto) Absolute Nucleated RBC Nucleated RBC % (auto) PT INR Anion Gap 19 Estim Creat Clear Calc 33.1 Estimated GFR 42 Random Glucose 127 H Calcium 14.1 H* D Magnesium Total Bilirubin AST ALT Alkaline Phosphatase Total Protein Albumin Urine Color Urine Appearance Urine pH Ur Specific [place] Urine Protein Urine Glucose (UA) Urine Ketones Urine Blood Urine Nitrite Ur Leukocyte Esterase Influenza Type A (PCR) Influenza Type B (PCR) RSV RNA Qual (PCR) SARS-CoV-2 RNA (RT-PCR) Assessment and Plan (1) Hyperkalemia: Status: Acute Plan Pt is an 83-year-old female with a PMH significant for?CAD, cardiac arrest in Mar 2023 s/p biventricular ICD in place, paroxysmal AFib on Xarelto, peripheral vascular disease, HFrEF, CKD 3, unspecified asthma, GERD, gout, and KEVIN on nasal CPAP who presents to the ED after fall at home earlier this afternoon. Pt will be admitted to the hospital for treatment and further evaluation of generalized weakness in the setting of acute hyperkalemia secondary to CKD and medication. Hyperkalemia Pt's potassium 6.2 with repeats 5.6 and 4.5 Likely multifactorial: secondary to diuretic use and worsening CKD Pt given Lokelma, albuterol, insulin, and calcium gluconate No EKG changes Hold spironolactone Nephrology consult for medication management Renal diet Follow BMP Monitor on telemetry Generalized weakness In the setting of above Pt with fall at home Imaging negative for acute abnormalities Treat as above PT consult Hyperkalcemia Pt's calcium 14.1 on third blood draw of day Previous two WNL Likely iatrogenic, elevated secondary to calcium gluconate Follow calcium Monitor on telemetry Hyponatremia Chronic, appears stable and around baseline HFrEF Continue torsemide Hold spironolactone Paroxysmal AFib Continue Xarelto, amiodarone Peripheral neuropathy Continue gabapentin Hypothyroidism Continue levothyroxine HLD/CAD Continue statin DNR/DNI Attending:?Dr. Lombardo DVT Prophylaxis: On Xarelto Pt will require a hospitalization of at least two nights for treatment of?generalized weakness in the setting of hyperkalemia secondary to worsening CKD and home medication. Given pt's significant comorbidities including CHF, CAD, and CKD, as well as generalized weakness and electrolyte imbalances, pt is a risk for rapid decompensation without hospital-level care for monitoring of cardiac function and labs, and PT evalutation. Quality Stroke Does the patient have a stroke diagnosis?: No VTE Prior VTE?: No VTE Risk Level:: Medical - moderate - high VTE Device Contraindication: Treatment Not Indicated VTE Drug Contraindication: N/A - Med Ordered
[2024-08-01 21:00] VITALS: BP 92/41; PULSE 77; RESP 20; TEMP 36.6; O2SAT 97
[2024-08-01 21:41] LABS: Anion Gap 18 (12-20); Blood Urea Nitrogen 73 mg/dL (9-16); Carbon Dioxide 17 mmol/L (22-29); Chloride 99 mmol/L (96-108); Creatinine Clr Calc Pharmacy 31.2; Estimated Glomerular Filt Rate 39; Glucose Random 169 mg/dL (60-115); Potassium 4.4 mmol/L (3.3-5.1); Sodium 130 mmol/L (135-145)
[2024-08-01 22:28] VITALS: BMI 27.7
[2024-08-01] MEDS: Acetaminophen 325 MG TABLET 650 MG PO (22:36)
[2024-08-01] MEDS: 0.9 % Sodium Chloride Flush 3 ML SYRINGE IVFLUSH (22:38)
[2024-08-01 23:53] VITALS: BP 102/52; PULSE 62; RESP 16; TEMP 36.2; O2SAT 98
[2024-08-02] VITALS (10 sets, daily range): BP systolic 95–112; BP diastolic 51–59; PULSE 60–84; RESP 16–18; TEMP 36.1–36.6; O2SAT 94–100
[2024-08-02 07:15] LABS: Hematocrit 27.4 % (42.0-52.0); Hemoglobin 9.1 g/dl (14.0-18.0); Mean Corpuscular HGB Conc 33.2 g/dl (31.0-36.0); Mean Corpuscular Hemoglobin 31.8 pg (27.0-33.0); Mean Corpuscular Volume 95.8 fL (80.0-98.0); Mean Platelet Volume 10.5 fL (9.4-12.4); Platelet Count 256 X10*3/uL (160-400); Red Blood Count 2.86 X10*6/uL (4.60-5.80); Red Cell Distribution Width 19.2 % (11.0-16.0); White Blood Count 10.9 X10*3/uL (4.8-10.8)
[2024-08-02 07:17] LABS: Anion Gap 15 (12-20); Blood Urea Nitrogen 79 mg/dL (9-16); Calcium 8.9 mg/dL (8.4-10.2); Carbon Dioxide 19 mmol/L (22-29); Chloride 100 mmol/L (96-108); Creatinine Clr Calc Pharmacy 29.6; Estimated Glomerular Filt Rate 37; Glucose Random 110 mg/dL (60-115); Potassium 4.8 mmol/L (3.3-5.1); Sodium 129 mmol/L (135-145)
--- NOTE | 2024-08-02 09:19 | MHC.CM.PN ---
IMM delivered. Patient lives in a home alone. Independent w/ care. Ambulates w/ walker. Also has CPAP and shower chair. [facility] services for home making and MOW. Recent stay at [facility] April 2024, on dc had home PT w/ [facility] but not active at this time. PCP Prince Manning HCP on file and verified. DP: Awaiting PT eval. Goal is home w/ services. Preference to [facility]. If STR is recommended, prefers to return to [facility]. Referrals sent via [facility]. Transport TBD by dispo - dtr vs BLS.
[2024-08-02] MEDS: 0.9 % Sodium Chloride Flush 3 ML SYRINGE IVFLUSH ×3 (09:32→20:39)
--- NOTE | 2024-08-02 10:05 | P.CONCA_ITS ---
History of Present Illness History of Present Illness Date of Service: 08/02/24 Chief complaint: Hyperkalemia Narrative: This is a cardiology consultation regarding history of cardiomyopathy and fall. Last seen about 2 months ago. Essentially, history of coronary disease, bypass surgery, previous cardiac arrest status post resuscitation, ICD placement, polymorphic VT, chronic heart failure with waxing and waning symptoms, frailty. Current admissions because of a fall. He states his legs gave out and then he fell. Then felt nauseous and then it seems he vomited. He denies any lightheadedness or presyncope. No other complaints like chest pain or palpitations. No acute shortness of breath but he feels that his weight is probably gone up recently. Found to have elevated potassium and then he was subsequently admitted. Today, he is overall weak but otherwise fine. No acute cardiac symptoms. Review of Systems 2 Review of Systems: Yes all other systems are reviewed and are negative Constitutional: Constitutional: Reports as per HPI, Reports no additional constitutional complaints, Reports fatigue and Reports weakness Eyes: Eyes: Reports as per HPI and Denies no additional eye complaints ENT: Denies system reviewed and no additional complaints, except as documented and Reports as per HPI Cardiovascular: Cardiovascular: Reports as per HPI, Reports no additional cardiovascular complaints, Denies acrocyanosis, Denies cool extremities, Denies chest pain, Denies leg edema, Denies lightheadedness, Denies palpitations and Denies dyspnea Respiratory: Respiratory: Reports as per HPI, Denies no additional respiratory complaints and Denies dyspnea Gastrointestinal: Gastrointestinal: Reports as per HPI and Denies no additional gastrointestinal complaints Genitourinary: Genitourinary: Reports no additional male genitourinary complaints and Reports as per HPI Musculoskeletal: Musculoskeletal: Reports no additional musculoskeletal complaints and Reports as per HPI Integumentary/Breasts: Skin/Breast: Reports system reviewed and no additional complaints, except as docu Neurologic: Reports system reviewed and no additional complaints, except as documented, Reports as per HPI and Reports weakness Psychiatric: Psychiatric: Reports no additional psychiatric complaints and Reports as per HPI Endocrine: Endocrine: Reports no additional endocrine complaints, Reports as per HPI, Reports fatigue and Denies palpitations Hematologic/Lymphatic: Hematologic/Lymphatic: Reports no additional hematologic/lymphatic complaints and Reports as per HPI Allergic/Immunologic: Allergic/Immunologic: Reports no additional allergic/immunologic complaints and Reports as per HPI [facility] Past Medical History Medical History Hyponatremia Iron deficiency anemia Elevated LFTs CKD (chronic kidney disease) LIBRA (acute kidney injury) Ischemic cardiomyopathy History of torsades de pointes Atherosclerotic cardiovascular disease Elevated serum creatinine Biventricular ICD (implantable cardioverter-defibrillator) in place Syncope RBBB PVD (peripheral vascular disease) Hx of thyroid nodule GERD (gastroesophageal reflux disease) CAD (coronary artery disease) BPH (benign prostatic hyperplasia) Asthma Atrial fibrillation Family History Family History Mother Breast cancer Father Heart attack Brother Stomach cancer Brother Heart disease Surgical History Surgical History Hx of CABG Hx of cardiac cath H/O right knee surgery H/O heart surgery Social History Social History Household Members: None Housing: House Do you presently have visiting nurse or other home services: Yes Alcohol intake: former Comment: pt refusing red socks, alarms, and camera Patient Tobacco Use Status: Former Tobacco user Years Smoked: 25 +/- Smoked in Last 30 Days: No Use of substances other than those prescribed or required for medical reasons: No Currently Displaying Signs/Symptoms of Drug Intoxication Withdrawal: No Have you been hit, kicked, punched, or otherwise hurt by someone within the past year? If so, by whom?: No Are you made to feel afraid or neglected: No Advance Directives: Yes Advance Directives on File: Yes Advance Directives Date on File: 10/31/23 Do you have a plan to hurt others: No Plan Eating poorly because of decreased appetite: No service: No Meds Allergies Allergy/AdvReac Type Severity Reaction Status Date / Time doxycycline Allergy Unknown Unknown Verified 08/01/24 09:10 narcotics AdvReac Nausea and Uncoded 08/01/24 09:10 Vomiting, hypotensive Active Medications: Current Medications Acetaminophen (Acetaminophen 325 Mg Tablet) 650 mg PO Q6H PRN PRN Reason: Pain, Mild 1-3,fever,headache Last Admin: 08/01/24 22:36 Dose: 650 mg Calcium Carbonate (Calcium Carbonate 750 Mg Tab.Chew) 750 mg PO Q4H PRN PRN Reason: Heartburn Magnesium Hydroxide (Milk Of Magnesia 30 Ml Oral.Susp) 30 ml PO DAILY PRN PRN Reason: Constipation Melatonin (Melatonin 3 Mg Tablet) 6 mg PO BEDTIME PRN PRN Reason: Insomnia Ondansetron HCl (Ondansetron Hcl 4 Mg/2 Ml Vial) 4 mg IVPUSH Q8H PRN PRN Reason: Nausea and Vomiting Sodium Chloride (0.9 % Sodium Chloride Flush 3 Ml Syringe) 3 ml [facility] Last Admin: 08/02/24 09:32 Dose: 3 ml Home Medications ?Medication ?Instructions ?Recorded ?Confirmed ?Last Taken ?Type finasteride 5 mg tablet 5 mg PO DAILY@0900 06/18/21 05/19/24 04/12/24 History pantoprazole 40 mg tablet,delayed 40 mg PO DAILY@0630 06/18/21 05/19/24 04/12/24 History release allopurinol 100 mg tablet 100 mg PO DAILY@0900 10/27/23 05/19/24 04/12/24 History lorazepam 0.5 mg tablet 0.5 mg PO DAILY PRN Anxiety 03/04/24 05/19/24 04/12/24 History levothyroxine 88 mcg tablet 88 mcg DAILY@0604/12/24 05/19/24 04/12/24 History Physical Exam 2 Vital Signs: Vital Signs: Last Vital Signs Temp 96.9 F 08/02/24 07:10 Pulse 77 08/02/24 09:02 Resp 17 08/02/24 07:10 BP 99/51 L 08/02/24 09:02 Pulse Ox 96 08/02/24 07:10 O2 Del Method Room Air 08/02/24 07:10 BMI result Body Mass Index 27.7 Const: General: comfortable and no acute distress O rientation/consciousness: patient oriented x3 HEENT: Other: Unremarkable Head: Yes normal to inspection Neck: Neck: Yes normal visual inspection Chest: Chest palpation & inspection: normal inspection of the chest Resp: Other: Fine crackles Cardio: Palpation: normal PMI Heart sounds: S1 normal heart sound present, S2 normal heart sound present, no gallops, no murmurs and no rubs GI: Palpation (GI): Soft to palpation Back/Spine/Pelvis: Other: unremarkable Skin: General skin exam: no rashes or lesions noted Neuro: General: patient oriented x3 Extrem: General: Yes normal to inspection Psych: Mental Status: mental status grossly normal Objective Labs and Meds 08/02/24 06:19 08/02/24 06:19 Lab results: Laboratory Results - last 24 hr 08/01/24 08/01/24 08/01/24 09:51 09:59 13:29 WBC RBC Hgb Hct MCV MCH MCHC RDW Plt Count MPV Absolute Nucleated RBC Nucleated RBC % (auto) PT 17.2 H D INR 1.5 H Sodium 131 L 131 L Potassium 6.2 H* D 5.6 H Chloride 97 100 Carbon Dioxide 19 L 20 L Anion Gap 21 H 17 BUN 80 H 78 H Creatinine 1.72 H 1.69 H Estim Creat Clear Calc 30.4 31.0 Estimated GFR 38 39 Random Glucose 91 99 Calcium 9.4 9.2 Magnesium 2.5 Total Bilirubin 1.3 H AST 42 H ALT 20 Alkaline Phosphatase 140 H Troponin I High Sens 151.6 H* 144.1 H* Total Protein 7.2 Albumin 4.1 Urine Color Yellow Urine Appearance Clear Urine pH 8.5 Ur Specific [place] 1.010 Urine Protein Negative Urine Glucose (UA) Negative Urine Ketones Negative Urine Blood Negative Urine Nitrite Negative Ur Leukocyte Esterase Negative Influenza Type A (PCR) NEGATIVE Influenza Type B (PCR) NEGATIVE RSV RNA Qual (PCR) NEGATIVE SARS-CoV-2 RNA (RT-PCR) NEGATIVE 08/01/24 08/01/24 08/02/24 16:33 20:58 06:19 WBC 10.9 H RBC 2.86 L D Hgb 9.1 L D Hct 27.4 L D MCV 95.8 MCH 31.8 MCHC 33.2 RDW 19.2 H Plt Count 256 MPV 10.5 Absolute Nucleated RBC 0.000 Nucleated RBC % (auto) 0.0 PT INR Sodium 131 L 130 L 129 L Potassium 4.5 4.4 4.8 Chloride 100 99 100 Carbon Dioxide 17 L 17 L 19 L Anion Gap 19 18 15 BUN 73 H 73 H 79 H Creatinine 1.58 H 1.68 H 1.79 H Estim Creat Clear Calc 33.1 31.2 29.6 Estimated GFR 42 39 37 Random Glucose 127 H 169 H 110 Calcium 14.1 H* D 9.0 D 8.9 Magnesium Total Bilirubin AST ALT Alkaline Phosphatase Troponin I High Sens Total Protein Albumin Urine Color Urine Appearance Urine pH Ur Specific [place] Urine Protein Urine Glucose (UA) Urine Ketones Urine Blood Urine Nitrite Ur Leukocyte Esterase Influenza Type A (PCR) Influenza Type B (PCR) RSV RNA Qual (PCR) SARS-CoV-2 RNA (RT-PCR) ECG Interpretation: EKG with baseline artifact. Overall ventricular rate 64/Min. Ventricular pacing is noted but not clear if it is atrial pacing or [place] sinus. Assessment and Plan (1) Fall: Status: Acute (2) Hyperkalemia: Status: Acute (3) CKD stage 3b, 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: Status: Acute (4) Low blood pressure: Status: Acute (5) Chronic combined systolic and diastolic CHF (congestive heart failure): Status: Acute (6) Biventricular ICD (implantable cardioverter-defibrillator) in place: Status: Acute Plan Admission potassium was 6.2. Currently, 4.8. In the past, he has also had low levels of potassium. We need to clarify if he is indeed taking supplemental potassium in addition of the spironolactone. That is the case, we will need to cut back on that 1st and potentially keep the spironolactone without changes. He is not on other medications for guideline based heart failure due to low blood pressure. Would keep it that way. With regard diuretics, he is on torsemide at home with prn metolazone. No changes with that. We will follow up with you as needed. Discussed with . Procedures Date of Service Date of Service: 08/02/24
--- NOTE | 2024-08-02 10:51 | PHA.MEDREC ---
Pharmacy Consult ? Medication Reconciliation Pharmacy has completed the medication reconciliation.Spoke with patient in [facility] who knew all meds/times he takes them. Matched claim history. Patient BP has been running low and no longer takes metoprolol. notified med rec complete.
[2024-08-02] MEDS: Amiodarone HCL 200 MG TABLET PO ×2 (13:18→17:31)
--- NOTE | 2024-08-02 16:16 | P.PNIM_ITS ---
Subjective Subjective Date of Service: 08/03/24 Interval History: Complaining of left leg pain, denies shortness of breath, no chest pain, no palpitation, routinely gets up slowly from lying position due to soft blood pressures. Orthostatic blood pressures are negative No acute events overnight. Review of Systems All other system reviewed and are negative Physical Exam 2 Vital Signs: Vital Signs: Last Vital Signs Temp 97.2 F 08/02/24 15:23 Pulse 70 08/02/24 15:23 Resp 18 08/02/24 15:23 BP 111/59 L 08/02/24 15:23 Pulse Ox 100 08/02/24 15:23 O2 Del Method Room Air 08/02/24 15:23 BMI result Body Mass Index 27.7 Const: Other: General resting comfortably in no acute distress. Neck no JVD. CVS regular rate rhythm, Respiratory lungs clear to auscultation, no respiratory distress, no wheeze, no rhonchi. Gastrointestinal abdomen soft, non tender, bowel sounds audible. Extremities no edema. Neuro non focal Skin no rash Psych appropriate affect Objective Data Active Medications Acetaminophen (Acetaminophen 325 Mg Tablet) 650 mg PO Q6H PRN PRN Reason: Pain, Mild 1-3,fever,headache Last Admin: 08/01/24 22:36 Dose: 650 mg Documented By: ILSA Allopurinol (Allopurinol 100 Mg Tablet) 100 mg PO DAILY@0900 [facility] Amiodarone HCl (Amiodarone Hcl 200 Mg Tablet) 200 mg PO DAILY@1700 [facility] Last Admin: 08/02/24 13:18 Dose: 200 mg Documented By: HAILEY Atorvastatin Calcium (Atorvastatin Calcium 40 Mg Tablet) 40 mg PO BEDTIME ED[facility] Calcium Carbonate (Calcium Carbonate 750 Mg Tab.Chew) 750 mg PO Q4H PRN PRN Reason: Heartburn Calcium Carbonate (Calcium Oyster Shell Elemental 500 Mg Tablet) 500 mg PO BEDTIME [facility] Finasteride (Finasteride 5 Mg Tablet) 5 mg PO DAILY@0900 [facility] Gabapentin (Gabapentin 600 Mg Tablet) 600 mg PO BEDTIME [facility] Levothyroxine Sodium (Levothyroxine Sodium 88 Mcg Tablet) 88 mcg PO DAILY@0600 [facility] Lorazepam (Lorazepam 0.5 Mg Tablet) 0.5 mg PO DAILY PRN PRN Reason: Anxiety Magnesium Hydroxide (Milk Of Magnesia 30 Ml Oral.Susp) 30 ml PO DAILY PRN PRN Reason: Constipation Magnesium Oxide (Magnesium Oxide 400 Mg Tablet) 400 mg PO DAILY@1700 [facility] Melatonin (Melatonin 3 Mg Tablet) 6 mg PO BEDTIME PRN PRN Reason: Insomnia Ondansetron HCl (Ondansetron Hcl 4 Mg/2 Ml Vial) 4 mg IVPUSH Q8H PRN PRN Reason: Nausea and Vomiting Rivaroxaban (Rivaroxaban 15 Mg Tablet) 15 mg PO DAILY@1700 [facility] Sodium Chloride (0.9 % Sodium Chloride Flush 3 Ml Syringe) 3 ml IVFLUSH QSHIFT [facility] Last Admin: 08/02/24 09:32 Dose: 3 ml Documented By: HAILEY Torsemide (Torsemide 20 Mg Tablet) 20 mg PO DAILY [facility]; Protocol Vitamin D (Cholecalciferol (Vitamin D3) 25 Mcg Tablet) 25 mcg PO DAILY [facility] Labs 08/02/24 06:19 08/03/24 07:25 Labs: Laboratory Results - last 24 hr 08/01/24 08/01/24 08/02/24 16:33 20:58 06:19 MCV 95.8 MCH 31.8 MCHC 33.2 RDW 19.2 H Plt Count 256 MPV 10.5 Absolute Nucleated RBC 0.000 Nucleated RBC % (auto) 0.0 Anion Gap 19 18 15 Estim Creat Clear Calc 33.1 31.2 29.6 Estimated GFR 42 39 37 Random Glucose 127 H 169 H 110 Calcium 14.1 H* D 9.0 D 8.9 Assessment and Plan (1) Hyperkalemia: Status: Acute (2) Fall: Status: Acute (3) Hyponatremia: Status: Acute Plan 83-year-old female with a PMH significant for?CAD, cardiac arrest in Mar 2023 s/p biventricular ICD in place, paroxysmal AFib on Xarelto, peripheral vascular disease, HFrEF, CKD 3, unspecified asthma, GERD, gout, and KEVIN on nasal CPAP who presents to the ED after fall at home earlier this afternoon. Pt will be admitted to the hospital for treatment and further evaluation of generalized weakness in the setting of acute hyperkalemia secondary to CKD and medication. Hyperkalemia potassium 6.2 on admission improved to 4.5 after treatment in ED with Lokelma,, insulin and calcium gluconate Case discussed with Nephrology they agreed to discontinue spironolactone Generalized weakness with fall Imaging negative for acute abnormalities, negative orthostatic blood pressures but chronically low BP PT recommend home with service Hypercalcemia Pt's calcium 14.1 on third blood draw ,Previous two WNL Likely iatrogenic, elevated secondary to calcium gluconate Repeat calcium normal Hyponatremia Chronic, appears stable and around baseline, previously was on urea recommend outpatient follow-up with Nephrology HFrEF Continue torsemide 20 mg home dose verified by Nephrology,Hold spironolactone Seen by Cardiology they agree with current treatment plan. Paroxysmal AFib Continue Xarelto, amiodarone Peripheral neuropathy Continue gabapentin Hypothyroidism Continue levothyroxine HLD/CAD Continue statin DNR/DNI DVT Prophylaxis: On Xarelto Pt will require continued inpatient hospitalization for monitoring of electrolytes and safe disposition. Quality Stroke Does the patient have a stroke diagnosis?: No VTE Prior VTE?: No VTE Risk Level:: Medical - moderate - high VTE Device Contraindication: Treatment Not Indicated VTE Drug Contraindication: N/A - Med Ordered
[2024-08-02] MEDS: Rivaroxaban 15 MG TABLET PO (17:31)
[2024-08-02] MEDS: Magnesium Oxide 400 MG TABLET PO (17:31)
[2024-08-02] MEDS: Calcium Oyster Shell Elemental 500 MG TABLET PO (20:39)
[2024-08-02] MEDS: Gabapentin 600 MG TABLET PO (20:39)
[2024-08-02] MEDS: Atorvastatin Calcium 40 MG TABLET PO (20:39)
[2024-08-02] MEDS: Melatonin 3 MG TABLET 6 MG PO (22:15)
[2024-08-03] MEDS: Levothyroxine Sodium 88 MCG TABLET PO (05:02)
[2024-08-03 05:03] VITALS: BP 102/54; PULSE 65; RESP 16; TEMP 36.5; O2SAT 96
[2024-08-03 07:48] VITALS: BP 98/54; PULSE 60; RESP 18; TEMP 36.7; O2SAT 96
[2024-08-03 08:24] LABS: Anion Gap 16 (12-20); Blood Urea Nitrogen 69 mg/dL (9-16); Calcium 8.5 mg/dL (8.4-10.2); Carbon Dioxide 20 mmol/L (22-29); Chloride 99 mmol/L (96-108); Creatinine Clr Calc Pharmacy 39.3; Estimated Glomerular Filt Rate 51; Glucose Random 89 mg/dL (60-115); Potassium 4.8 mmol/L (3.3-5.1); Sodium 130 mmol/L (135-145)
--- NOTE | 2024-08-03 09:04 | P.CONNP_ITS ---
History of Present Illness Reason for Consult Consult date: 08/03/24 Chief Complaint Chief complaint: Hyperkalemia History of Present Illness Narrative: 83-year-old female with CKD , CAD, cardiac arrest in Mar 2023 s/p biventricular ICD, peripheral vascular disease, gout, and KEVIN who presented to the ER after fall at home. Pt reports he was in his normal state of health earlier in the day, but felt nauseous and weak as he attempted to get out of his chair and walk to the bathroom. Reports both legs collapsed underneath him and he fell to the ground, lightly striking his head on the floor although he broke his fall with his arms. Denies lightheadedness or dizziness. Complains of left leg pain right above and below his knee. Denies hip pain. No chest pain/pressure, palpitations. Denies fever, chills, or cough. No SOB or difficulty breathing. Denies diarrhea or abdominal pain. In the ER, BP was 118/57, vitals otherwise WNL. Labs were significant for sodium 131, potassium 6.2, creatinine 1.72, t bili 1.3, AST 42, alk phos 140, and serial troponins flat at 151.6 and 144.1. Tested negative for COVID/RSV/Flu. UA negative for UTI. CT?of head and cervical spine negative for acute abnormality. Left knee xray negative for fracture but showed arthropathy and extensive multifocal vasculopathy. Pt was treated with Lokelma, regular insulin 5 unit IV, albuterol, calcium gluconate, and IVF. Pt was admitted to the hospital for treatment and further evaluation of generalized weakness in the setting of acute hyperkalemia secondary to CKD and medication. Nephrology has been consulted to assist in his clinical care during his current hospital stay Review of Systems Review of Systems Yes all other systems are reviewed and are negative PMFSH Past Medical History Medical History Hyponatremia Iron deficiency anemia Elevated LFTs CKD (chronic kidney disease) LIBRA (acute kidney injury) Ischemic cardiomyopathy History of torsades de pointes Atherosclerotic cardiovascular disease Elevated serum creatinine Biventricular ICD (implantable cardioverter-defibrillator) in place Syncope RBBB PVD (peripheral vascular disease) Hx of thyroid nodule GERD (gastroesophageal reflux disease) CAD (coronary artery disease) BPH (benign prostatic hyperplasia) Asthma Atrial fibrillation Family History Family History Mother Breast cancer Father Heart attack Brother Stomach cancer Brother Heart disease Surgical History Surgical History Hx of CABG Hx of cardiac cath H/O right knee surgery H/O heart surgery Social History Social History Household Members: None Housing: House Do you presently have visiting nurse or other home services: Yes Alcohol intake: former Comment: pt refusing red socks, alarms, and camera Patient Tobacco Use Status: Former Tobacco user Years Smoked: 25 +/- Smoked in Last 30 Days: No Use of substances other than those prescribed or required for medical reasons: No Currently Displaying Signs/Symptoms of Drug Intoxication Withdrawal: No Have you been hit, kicked, punched, or otherwise hurt by someone within the past year? If so, by whom?: No Are you made to feel afraid or neglected: No Advance Directives: Yes Advance Directives on File: Yes Advance Directives Date on File: 10/31/23 Do you have a plan to hurt others: No Plan Eating poorly because of decreased appetite: No service: No Meds Allergies Allergy/AdvReac Type Severity Reaction Status Date / Time doxycycline Allergy Unknown Unknown Verified 08/01/24 09:10 narcotics AdvReac Nausea and Uncoded 08/01/24 09:10 Vomiting, hypotensive Active Medications: Current Medications Acetaminophen (Acetaminophen 325 Mg Tablet) 650 mg PO Q6H PRN PRN Reason: Pain, Mild 1-3,fever,headache Last Admin: 08/01/24 22:36 Dose: 650 mg Allopurinol (Allopurinol 100 Mg Tablet) 100 mg PO DAILY@0900 [facility] Amiodarone HCl (Amiodarone Hcl 200 Mg Tablet) 200 mg PO DAILY@1700 [facility] Last Admin: 08/02/24 17:31 Dose: 200 mg Atorvastatin Calcium (Atorvastatin Calcium 40 Mg Tablet) 40 mg PO BEDTIME [facility] Last Admin: 08/02/24 20:39 Dose: 40 mg Calcium Carbonate (Calcium Carbonate 750 Mg Tab.Chew) 750 mg PO Q4H PRN PRN Reason: Heartburn Calcium Carbonate (Calcium Oyster Shell Elemental 500 Mg Tablet) 500 mg PO BEDTIME [facility] Last Admin: 08/02/24 20:39 Dose: 500 mg Finasteride (Finasteride 5 Mg Tablet) 5 mg PO DAILY@0900 [facility] Gabapentin (Gabapentin 600 Mg Tablet) 600 mg PO BEDTIME [facility] Last Admin: 08/02/24 20:39 Dose: 600 mg Levothyroxine Sodium (Levothyroxine Sodium 88 Mcg Tablet) 88 mcg PO DAILY@0600 [facility] Last Admin: 08/03/24 05:02 Dose: 88 mcg Lorazepam (Lorazepam 0.5 Mg Tablet) 0.5 mg PO DAILY PRN PRN Reason: Anxiety Magnesium Hydroxide (Milk Of Magnesia 30 Ml Oral.Susp) 30 ml PO DAILY PRN PRN Reason: Constipation Magnesium Oxide (Magnesium Oxide 400 Mg Tablet) 400 mg PO DAILY@1700 [facility] Last Admin: 08/02/24 17:31 Dose: 400 mg Melatonin (Melatonin 3 Mg Tablet) 6 mg PO BEDTIME PRN PRN Reason: Insomnia Last Admin: 08/02/24 22:15 Dose: 6 mg Ondansetron HCl (Ondansetron Hcl 4 Mg/2 Ml Vial) 4 mg IVPUSH Q8H PRN PRN Reason: Nausea and Vomiting Rivaroxaban (Rivaroxaban 15 Mg Tablet) 15 mg PO DAILY@1700 [facility] Last Admin: 08/02/24 17:31 Dose: 15 mg Sodium Chloride (0.9 % Sodium Chloride Flush 3 Ml Syringe) 3 ml IVFLUSH QSHIFT [facility] Last Admin: 08/02/24 20:39 Dose: 3 ml Torsemide (Torsemide 20 Mg Tablet) 20 mg PO DAILY [facility]; Protocol Vitamin D (Cholecalciferol (Vitamin D3) 25 Mcg Tablet) 25 mcg PO DAILY [facility] Home Medications ?Medication ?Instructions ?Recorded ?Confirmed ?Last Taken ?Type finasteride 5 mg tablet 5 mg PO DAILY@0906/18/21 08/02/24 08/01/24 History pantoprazole 40 mg tablet,delayed 40 mg PO BID 06/18/21 08/02/24 08/01/24 History release allopurinol 100 mg tablet 100 mg PO DAILY@0900 10/27/23 08/02/24 08/01/24 History lorazepam 0.5 mg tablet 0.5 mg PO DAILY PRN Anxiety 03/04/24 08/02/24 08/01/24 History levothyroxine 88 mcg tablet 88 mcg DAILY@0600 04/12/24 08/02/24 08/01/24 History calcium carbonate 500 mg PO BEDTIME 08/02/24 08/02/24 08/01/24 History cholecalciferol (vitamin D3) 25 25 mcg PO DAILY 08/02/24 08/02/24 08/01/24 History mcg (1,000 unit) tablet (Vitamin D3) magnesium oxide 400 mg PO DAILY@1700 08/02/24 08/02/24 08/01/24 History Physical Exam Vital Signs: Last Vital Signs Temp 98.1 F 08/03/24 07:48 Pulse 60 08/03/24 07:48 Resp 18 08/03/24 07:48 BP 98/54 L 08/03/24 07:48 Pulse Ox 96 08/03/24 07:48 O2 Del Method Room Air 08/03/24 07:48 BMI result Body Mass Index 27.7 Const General: comfortable and no acute distress Orientation/consciousness: patient oriented x3 HEENT Head: Yes normocephalic Mouth: Normal oral and palatal mucosa present Eyes EOM: EOMs intact bilaterally Neck Neck: Yes supple Resp Auscultation: clear to auscultation bilaterally Cardio Jugular venous distension: no JVD Rate: regular rate GI Palpation (GI): Soft to palpation Auscultation: normal bowel sounds General: Yes no CVA tenderness Back/Spine/Pelvis Back: no CVA tenderness Skin General skin exam: no rashes or lesions noted Neuro General: patient oriented x3 and moves all extremities Extrem General: Yes no pedal edema Results Lab Results 08/02/24 06:19 08/03/24 07:25 Lab results: Chemistry 08/01/24 08/01/24 08/01/24 09:51 13:29 16:33 Sodium 131 L 131 L 131 L Potassium 6.2 H* D 5.6 H 4.5 Carbon Dioxide 19 L 20 L 17 L BUN 80 H 78 H 73 H Creatinine 1.72 H 1.69 H 1.58 H Calcium 9.4 9.2 14.1 H* D 08/01/24 08/02/24 08/03/24 20:58 06:19 07:25 Sodium 130 L 129 L 130 L Potassium 4.4 4.8 4.8 Carbon Dioxide 17 L 19 L 20 L BUN 73 H 79 H 69 H Creatinine 1.68 H 1.79 H 1.35 Calcium 9.0 D 8.9 8.5 Hematology 08/01/24 08/02/24 09:51 06:19 WBC 9.7 10.9 H Hgb 12.1 L D 9.1 L D Plt Count 272 256 Urinalysis 08/01/24 09:59 Urine Color Yellow Urine Appearance Clear Urine pH 8.5 Ur Specific [place] 1.010 Urine Protein Negative Urine Glucose (UA) Negative Urine Ketones Negative Urine Blood Negative Urine Nitrite Negative Ur Leukocyte Esterase Negative Assessment and Plan (1) Hyperkalemia: Status: Acute (2) Hyponatremia: Status: Acute (3) CKD stage 3b, 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
[2024-08-03] MEDS: Torsemide 20 MG TABLET PO (09:26)
[2024-08-03] MEDS: Cholecalciferol (Vitamin D3) 25 MCG TABLET PO (09:26)
[2024-08-03] MEDS: 0.9 % Sodium Chloride Flush 3 ML SYRINGE IVFLUSH (09:27)
[2024-08-03] MEDS: Finasteride 5 MG TABLET PO (09:27)
[2024-08-03] MEDS: allopurinoL 100 MG TABLET PO (09:27)
[2024-08-03 10:58] VITALS: BP 90/62; PULSE 60; O2SAT 96
[2024-08-03 11:01] VITALS: BP 90/62; PULSE 60; RESP 18; TEMP 36.3; O2SAT 96
--- NOTE | 2024-08-03 12:14 | MHC.CM.PN ---
Pt is medically cleared for discharge home with resumption of previous [facility] services, pts daughter Phoebe will transport him home today.
--- NOTE | 2024-08-03 14:23 | PM.DS ---
DS: Providers Provider Date of Service: 08/03/24 Date of admission: 08/01/24 19:12 Date of discharge: 08/03/24 Primary care physician: Prince Manning MD Consults: 08/01/24 19:23 Consult to Nephrology Routine Consulting Provider: [facility] Reason for consultation: HyperK; CKD on spironolactone. For medication management 08/02/24 09:35 Consult to Cardiology Routine Consulting Provider: [facility] Reason for consultation: cardiomyopathy Has provider been notified: No DS: Diagnosis Discharge Diagnosis (1) Hyperkalemia: Status: Acute (2) Fall: Status: Acute (3) Hyponatremia: Status: Acute DS: Summary Hospital Course Hospital Course: Date of Service: 08/01/24 Attending physician on admission: Craig Lombardo Chief Complaint: Fall at home Pt is an 83-year-old female with a PMH significant for?CAD, cardiac arrest in Mar 2023 s/p biventricular ICD in place, paroxysmal AFib on Xarelto, peripheral vascular disease, HFrEF, CKD 3, unspecified asthma, GERD, gout, and KEVIN on nasal CPAP who presents to the ED after fall at home earlier this afternoon. Pt reports he was in his normal state of health earlier in the day, but felt nauseous and weak as he attempted to get out of his chair and walk to the bathroom. Reports both legs collapsed underneath him and he fell to the ground, lightly striking his head on the floor although he broke his fall with his arms. Denies lightheadedness or dizziness. Complains of left leg pain right above and below his knee. Denies hip pain. No chest pain/pressure, palpitations. Denies fever, chills, or cough. No SOB or difficulty breathing. Denies diarrhea or abdominal pain. In the ED pt with soft BP as low as 118/57, vitals otherwise WNL. Labs were significant for sodium 131, potassium 6.2, creatinine 1.72, t bili 1.3, AST 42, alk phos 140, and serial troponins flat at 151.6 and 144.1. Tested negative for COVID/RSV/Flu. UA negative for UTI. CT?of head and cervical spine negative for acute abnormality. Left knee xray negative for fracture but showed arthropathy and extensive multifocal vasculopathy. Pt was treated with Lokelma, regular insulin 5 unit IV, albuterol, calcium gluconate, and IVF. Pt will be admitted to the hospital for treatment and further evaluation of generalized weakness in the setting of acute hyperkalemia secondary to CKD and medication. Hospital course: 83-year-old female with a PMH significant for?CAD, cardiac arrest in Mar 2023 s/p biventricular ICD in place, paroxysmal AFib on Xarelto, peripheral vascular disease, HFrEF, CKD 3, unspecified asthma, GERD, gout, and KEVIN on nasal CPAP who presents to the ED after fall at home earlier this afternoon, admitted to [facility] due to generalized weakness in the setting of acute hyperkalemia secondary to CKD and medication. Hyperkalemia potassium 6.2 on admission improved to 4.5 after treatment in ED with Lokelma,, insulin and calcium gluconate ,Case discussed with Nephrology they agreed to discontinue spironolactone. Recommend follow-up with Dr. Gilmore for continued outpatient follow-up. Generalized weakness with fall Imaging negative for acute abnormalities, negative orthostatic blood pressures but chronically low BP, PT recommend home with service. Hypercalcemia Pt's calcium 14.1 on third blood draw ,Previous two WNL, Likely iatrogenic, elevated secondary to calcium gluconate , Repeat calcium normal Hyponatremia Chronic, appears stable and around baseline, previously was on urea recommend outpatient follow-up with Nephrology. HFrEF Continue torsemide 20 mg home dose verified by Nephrology,Hold spironolactone, Seen by Cardiology they agree with current treatment plan. Paroxysmal AFib Continue Xarelto, amiodarone. Peripheral neuropathy Continue gabapentin. Hypothyroidism Continue levothyroxine. HLD/CAD Continue statin. Time Attestation Discharge Coordination Time (in mins): 40 Quality: Safe Use of Opioids Does Pt have an Active Cancer Diagnosis on the Problem List?: No Quality: Stroke Does the patient have a stroke diagnosis?: No Physical Exam Vital Signs: Vital Signs: Last Vital Signs Temp 97.4 F 08/03/24 11:01 Pulse 60 08/03/24 11:01 Resp 18 08/03/24 11:01 BP 90/62 08/03/24 11:01 Pulse Ox 96 08/03/24 11:01 O2 Del Method Room Air 08/03/24 11:01 BMI result Body Mass Index 27.7 Const: Other: General resting comfortably in no acute distress. Neck no JVD. CVS regular rate rhythm, Respiratory lungs clear to auscultation, no respiratory distress, no wheeze, no rhonchi. Gastrointestinal abdomen soft, non tender, bowel sounds audible. Extremities no edema. Neuro non focal Skin no rash Psych appropriate affect DS: Data Data Completed and Pending Completed studies during hospitalization [Text1]: Procedures Assistance with Respiratory Ventilation, Less than 24 Consecutive Hours, Continuous Positive Airway Pressure (04/12/24) Drainage of Peritoneal Cavity, Percutaneous Approach (04/12/24) Drainage of Peritoneal Cavity, Percutaneous Approach, Diagnostic (04/12/24) Transfusion of Nonautologous Red Blood Cells into Peripheral Vein, Percutaneous Approach (04/12/24) Labs on day of discharge: Laboratory Results - last 24 hr 08/03/24 07:25 Sodium 130 L Potassium 4.8 Chloride 99 Carbon Dioxide 20 L Anion Gap 16 BUN 69 H Creatinine 1.35 Estim Creat Clear Calc 39.3 Estimated GFR 51 Random Glucose 89 Calcium 8.5 Discharge Plan Discharge Anticipated Discharge Date/Time: 08/02/24 16:35 Patient Disposition: Home Health Service Discharge Diagnosis: Acute hyperkalemia Referrals: [facility] [Outside] - 1 Week Prince Manning MD [Primary Care Provider] - 1 Week Discharge Medications: Continued amiodarone 200 mg tablet 200 mg PO DAILY@1700 Qty: 90 3RF Xarelto 15 mg tablet 15 mg PO DAILY@1700 Qty: 90 3RF Rx Instructions: must administer with evening meal gabapentin 600 mg tablet 600 mg PO BEDTIME 90 Days Qty: 90 1RF atorvastatin 40 mg tablet 40 mg PO BEDTIME Qty: 90 3RF allopurinol 100 mg tablet 100 mg PO DAILY@0900 levothyroxine 88 mcg tablet 88 mcg DAILY@0600 calcium carbonate 500 mg calcium (1,250 mg) Tablet 500 mg PO BEDTIME cholecalciferol (vitamin D3) [Vitamin D3] 25 mcg (1,000 unit) Tablet 25 mcg PO DAILY magnesium oxide 400 mg magnesium tablet 400 mg PO DAILY@1700 pantoprazole 40 mg tablet,delayed release (DR/EC) 40 mg PO BID finasteride 5 mg tablet 5 mg PO DAILY@0900 lorazepam 0.5 mg tablet 0.5 mg PO DAILY PRN (Reason: Anxiety) torsemide 20 mg tablet 20 mg PO DAILY Qty: 90 3RF Protocol: Hold for SBP< HOLD for SBP < : 90 Discontinued spironolactone 25 mg tablet 25 mg PO DAILY Qty: 90 3RF Protocol: Hold for SBP< HOLD for SBP < : 90 Discharge Orders: Discharge Order (Routine); Ordered 08/03/24 Ordered By: Craig Lombardo Diet: Low fat, low cholesterol Activity on Discharge: As tolerated Stand Alone Forms: Patient Portal Discharge page Print Language: Yi Care Plan Goals: Hyperkalemia resolved, discontinue spironolactone Restrict fluid intake to 48 oz in 24 hours Health Concerns: Continue all home medications as above Plan of Treatment: Outpatient follow-up with primary care physician Outpatient follow-up with Nephrology , they will arrange for office follow-up, with Dr. Wren. Outpatient follow-up with Cardiology as previously planned Assessment: As above
== END 2024-08-03 14:15 | disposition home health service (06) | DRG 641 ==
LOC: HO.ED 16:06 → HO.EDOVER 19:26 → HO.IMC 21:45
PROVIDERS: Registered Nurse Emergency; Admitting Provider Student in an Organized Health Care Education/Training Program; Emergency Provider Emergency Medicine; PCP Internal Medicine Sports Medicine; Visit Provider Hospitalist
DX: E87.5 Hyperkalemia (principal); I13.0 Hypertensive heart and chronic kidney disease with heart failure and stage 1 through stage 4 chronic kidney disease, or unspecified chronic kidney disease; I50.22 Chronic systolic (congestive) heart failure; E03.9 Hypothyroidism, unspecified; N18.30 Chronic kidney disease, stage 3 unspecified; Z95.810 Presence of automatic (implantable) cardiac defibrillator; Z66 Do not resuscitate; J45.909 Unspecified asthma, uncomplicated; G47.33 Obstructive sleep apnea (adult) (pediatric); E78.5 Hyperlipidemia, unspecified; G62.9 Polyneuropathy, unspecified; E87.0 Hyperosmolality and hypernatremia; I48.0 Paroxysmal atrial fibrillation; W19.XXXA Unspecified fall, initial encounter; I25.10 Atherosclerotic heart disease of native coronary artery without angina pectoris; Z20.822 Contact with and (suspected) exposure to COVID-19; Z79.01 Long term (current) use of anticoagulants; Z79.890 Hormone replacement therapy; Z79.899 Other long term (current) drug therapy
CPT/HCPCS: 0241U; 36415; 70450; 72125; 73564; 80048; 80053; 81003; 83735; 84484; 85025; 85027; 85610; 93005; 94640; 97161; 97530; 99285; J0613

== ENCOUNTER → 2024-08-01 09:00 | Outpatient (BNV) | payer MEDICARE, SELFPAY | PROVIDERS: Emergency Provider Emergency Medicine; PCP Internal Medicine Sports Medicine; Visit Provider Radiology Diagnostic Radiology | DX: M25.562 Pain in left knee (principal); M14.86 Arthropathies in other specified diseases classified elsewhere, knee; M17.12 Unilateral primary osteoarthritis, left knee; M54.2 Cervicalgia; W19.XXXA Unspecified fall, initial encounter | CPT/HCPCS: 70450; 72125; 73564 ==

== ENCOUNTER → 2024-08-01 19:12 | Outpatient (BNV) | payer MEDICARE, SELFPAY | PROVIDERS: Admitting Provider Student in an Organized Health Care Education/Training Program; Emergency Provider Emergency Medicine; PCP Internal Medicine Sports Medicine; Visit Provider Student in an Organized Health Care Education/Training Program | DX: E87.5 Hyperkalemia (principal); W19.XXXA Unspecified fall, initial encounter; E87.1 Hypo-osmolality and hyponatremia | CPT/HCPCS: 99223; 99232; 99239 ==

== ENCOUNTER → 2024-08-01 19:12 | Outpatient (BNV) | payer MEDICARE, SELFPAY | PROVIDERS: Admitting Provider Student in an Organized Health Care Education/Training Program; Emergency Provider Emergency Medicine; PCP Internal Medicine Sports Medicine; Visit Provider Internal Medicine Nephrology | DX: E87.5 Hyperkalemia (principal); E87.1 Hypo-osmolality and hyponatremia; N18.32 Chronic kidney disease, stage 3b | CPT/HCPCS: 99223 ==

== ENCOUNTER → 2024-08-01 19:12 | Outpatient (BNV) | payer MEDICARE, SELFPAY | PROVIDERS: Admitting Provider Student in an Organized Health Care Education/Training Program; Emergency Provider Emergency Medicine; PCP Internal Medicine Sports Medicine; Visit Provider Internal Medicine | DX: E87.5 Hyperkalemia (principal); W19.XXXA Unspecified fall, initial encounter; N18.32 Chronic kidney disease, stage 3b; I95.9 Hypotension, unspecified; I50.42 Chronic combined systolic (congestive) and diastolic (congestive) heart failure; Z95.810 Presence of automatic (implantable) cardiac defibrillator | CPT/HCPCS: 93010; 99223 ==

== ENCOUNTER 2024-08-09 09:12 | Outpatient (REF) | payer MEDICARE, SELFPAY ==
--- OUTSIDE RECORDS SUMMARY | 2024-08-09 09:49 | XMS_ITS | Encounter Summary ---
Author Organization [facility] Address [address] [place] [address] Care Team Providers Care Business Broker Name Role Phone Alfred Solitario MD Primary Care Provider [phone] Encounter Details Date Type Department Care Team (Late st Contact Info) Description 05/03/2024 Lab Requisition [facility] - Main Lab [address] [facility] [place] [address] Alfred Solitario MD [address] [place] [phone] Chronic kidney disease, stage 3b (CMS/HCC); [...] mmol/L LAB CHEMISTRY METHOD 05/03/2024 11:20 AM [facility] Potassium 4.5 3.5 - 5.5 mmol/L LAB CHEMISTRY METHOD 05/03/2024 11:20 AM [facility] Chloride 84(L) 96 - 110 mmol/L LAB CHEMISTRY METHOD 05/03/2024 11:20 AM [facility] LAB CO2 30 21 - 32 mmol/L LAB CHEMISTRY METHOD 05/03/2024 11:20 AM [facility] LAB Anion Gap 11 3 - 11 LAB CHEMISTRY METHOD 05/03/2024 11:20 AM [facility] Glucose 108(H) 70 - 100 mg/dL LAB CHEMISTRY METHOD 05/03/2024 11:20 AM [facility] BUN 107(H) 5 - 25 mg/dL LAB CHEMISTRY METHOD 05/03/2024 11:20 AM [facility] Creatinine 2.04(H) 0.70 - 1.30 mg/dL LAB CHEMISTRY METHOD 05/03/2024 11:20 AM [facility] LAB eGFR 32(L) >=60 mL/min/1. 73m2 LAB CHEMISTRY METHOD 05/03/2024 11:20 AM [facility] LAB Comment:Calculation based on the??Chronic Kidney Disease Epidemiology Collaboration (CKD-EPI) equation refit??without adjustment for race. BUN/Creatinine Ratio 52.5 LAB CHEMISTRY METHOD 05/03/2024 11:20 AM [facility] Calcium 8.5 8.5 - 10.5 mg/dL LAB CHEMISTRY METHOD 05/03/2024 11:20 AM [facility] LAB AST (SGOT) 34 10 - 42 unit/L LAB CHEMISTRY METHOD 05/03/2024 11:20 AM [facility] ALT (SGPT) 24 10 - 60 unit/L LAB CHEMISTRY METHOD 05/03/2024 11:20 AM [facility] Alkaline Phosphatase 141(H) 42 - 121 unit/L LAB CHEMISTRY METHOD 05/03/2024 11:20 AM [facility] Total Protein 5.6(L) 6.0 - 8.0 g/dL LAB CHEMISTRY METHOD 05/03/2024 11:20 AM [facility] Albumin 3.3 3.2 - 5.0 g/dL LAB CHEMISTRY METHOD 05/03/2024 11:20 AM [facility] Total Bilirubin 0.7 0.0 - 1.4 mg/dL LAB CHEMISTRY METHOD 05/03/2024 11:20 AM [facility] Blood Venous blood specimen / Unknown Venipuncture / Unknown 05/03/2024 5:04 AM EST 05/03/2024 9:46 AM EST us Alfred Solitario MD LAB BLOOD ORDERABLES Final Resu lt [facility] LAB [address] [place] [address], * (ABNORMAL) Complete blood count (05/03/2024 5:04 AM EST) WBC 9.1 4.8 - 10.8 K/mcL LAB HEMETOLOGY METHOD 05/03/2024 10:44 AM [facility] RBC 2.90(L) 4.50 - 5.50 M/mcL LAB HEMETOLOGY METHOD 05/03/2024 10:44 AM [facility] Hemoglobin 8.4(L) 13.5 - 17.5 g/dL LAB HEMETOLOGY METHOD 05/03/2024 10:44 AM [facility] Hematocrit 26.2(L) 42.0 - 54.0 % LAB HEMETOLOGY METHOD 05/03/2024 10:44 AM EST [facility] MCV 91.0 79.0 - 98.0 FL LAB HEMETOLOGY METHOD 05/03/2024 10:44 AM [facility] MCH 29.2 27.0 - 32.0 pcg LAB HEMETOLOGY METHOD 05/03/2024 10:44 AM [facility] MCHC 32.1 32.0 - 37.0 g/dL LAB HEMETOLOGY METHOD 05/03/2024 10:44 AM [facility] LAB RDW 23.0(H) 11.0 - 15.0 % LAB HEMETOLOGY METHOD 05/03/2024 10:44 AM [facility] Platelets 302 130 - 400 K/mcL LAB HEMETOLOGY METHOD 05/03/2024 10:44 AM [facility] MPV 10.6 7.0 - 11.0 FL LAB HEMETOLOGY METHOD 05/03/2024 10:44 AM EST [facility] NRBC 0.0 <1.0 % LAB HEMETOLOGY METHOD 05/03/2024 10:44 AM [facility] NRBC Absolute 0.00 <0.10 K/mcL LAB HEMETOLOGY METHOD 05/03/2024 10:44 AM [facility] Blood Venous blood specimen / Unknown Venipuncture / Unknown 05/03/2024 5:04 AM EST 05/03/2024 9:46 AM EST us Alfred Solitario MD LAB BLOOD ORDERABLES Final Resu lt [facility] [address] [place] [address], documented in this encounter Visit Diagnoses Diagnosis Chronic kidney disease, stage 3b (CMS/HCC) Unspecified atrial fibrillation (CMS/HCC) Chronic systolic (congestive) heart failure (CMS/HCC) documented in this encounter Care Teams Business Broker Relationship Specialty Start Date End Date Alfred Solitario MD [address] [place] [address] PCP - General Internal Medicine 05/02/24 documented as of this encounter
--- OUTSIDE RECORDS SUMMARY | 2024-08-09 09:49 | XMS_ITS | Clinical Summary ---
Author Organization [address] [facility] Address [address] [place] [address] Phone Care Team Providers Care Tin Recovery Worker Name Role Phone Alfred Solitario MD Primary Care Provider [phone] Encounters Date Type Department Care Team Description 05/13/[address] [facility] Lab [address] [place] [phone] Alfred Solitario MD Unspecified atrial fibrillation (CMS/HCC) 05/07/[address] [facility] Lab [address] [place] [phone] Alfred Solitario MD Unspecified atrial fibrillation (CMS/HCC); [...] diabetes mellitus wit h peripheral vascular disease ([facility]/HCC) 10/29/2016 DX:Type 2 diabet es mellitus with [...] Complete blood count (05/10/2024 5:29 AM EST) [facility] WBC 9.7 4.8 - 10.8 K/mcL LAB HEMETOLOGY METHOD 05/10/2024 9:54 AM [facility] LAB RBC 2.90(L) 4.50 - 5.50 M/mcL LAB HEMETOLOGY METHOD 05/10/2024 9:54 AM [facility] LAB Hemoglobin 8.4(L) 13.5 - 17.5 g/dL LAB HEMETOLOGY METHOD 05/10/2024 9:54 AM [facility] LAB Hematocrit 26.9(L) 42.0 - 54.0 % LAB HEMETOLOGY METHOD 05/10/2024 9:54 AM [facility] LAB MCV 93.1 79.0 - 98.0 FL LAB HEMETOLOGY METHOD 05/10/2024 9:54 AM [facility] LAB MCH 29.1 27.0 - 32.0 pcg LAB HEMETOLOGY METHOD 05/10/2024 9:54 AM [facility] LAB MCHC 31.2(L) 32.0 - 37.0 g/dL LAB HEMETOLOGY METHOD 05/10/2024 9:54 AM [facility] LAB RDW 23.0(H) 11.0 - 15.0 % LAB HEMETOLOGY METHOD 05/10/2024 9:54 AM [facility] LAB Platelets 292 130 - 400 K/[facility] LAB HEMETOLOGY METHOD 05/10/2024 9:54 AM [facility] LAB MPV 10.5 7.0 - 11.0 FL LAB HEMETOLOGY METHOD 05/10/2024 9:54 AM [facility] LAB NRBC 0.0 <1.0 % LAB HEMETOLOGY METHOD 05/10/2024 9:54 AM [facility] LAB NRBC Absolute 0.00 <0.10 K/mcL LAB HEMETOLOGY METHOD 05/10/2024 9:54 AM [facility] LAB Blood Venous blood specimen / Unknown Venipuncture / Unknown 05/10/2024 5:29 AM EST 05/10/2024 9:43 AM EST us Alfred Solitario MD LAB BLOOD ORDERABLES Final Resu lt [facility] LAB [address] [place] [address], [place] [phone] * (ABNORMAL) Comprehensive metabolic panel (05/10/2024 5:29 AM EST) Sodium 133 133 - 145 mmol/L LAB CHEMISTRY METHOD 05/10/2024 10:38 AM [facility] Potassium 4.5 3.5 - 5.5 mmol/L LAB CHEMISTRY METHOD 05/10/2024 10:38 AM [facility] Chloride 97 96 - 110 mmol/L LAB CHEMISTRY METHOD 05/10/2024 10:38 AM [facility] LAB CO2 27 21 - 32 mmol/L LAB CHEMISTRY METHOD 05/10/2024 10:38 AM [facility] LAB Anion Gap 9 3 - 11 LAB CHEMISTRY METHOD 05/10/2024 10:38 AM [facility] Glucose 122(H) 70 - 100 mg/dL LAB CHEMISTRY METHOD 05/10/2024 10:38 AM [facility] BUN 109(H) 5 - 25 mg/dL LAB CHEMISTRY METHOD 05/10/2024 10:38 AM [facility] Creatinine 1.96(H) 0.70 - 1.30 mg/dL LAB CHEMISTRY METHOD 05/10/2024 10:38 AM [facility] LAB eGFR 34(L) >=60 mL/min/1. 73m2 LAB CHEMISTRY METHOD 05/10/2024 10:38 AM [facility] LAB Comment:Calculation based on the??Chronic Kidney Disease Epidemiology Collaboration (CKD-EPI) equation refit??without adjustment for race. BUN/Creatinine Ratio 55.6 LAB CHEMISTRY METHOD 05/10/2024 10:38 AM [facility] Calcium 8.4(L) 8.5 - 10.5 mg/dL LAB CHEMISTRY METHOD 05/10/2024 10:38 AM [facility] LAB AST (SGOT) 34 10 - 42 unit/L LAB CHEMISTRY METHOD 05/10/2024 10:38 AM [facility] ALT (SGPT) 25 10 - 60 unit/L LAB CHEMISTRY METHOD 05/10/2024 10:38 AM [facility] LAB Alkaline Phosphatase 158(H) 42 - 121 unit/L LAB CHEMISTRY METHOD 05/10/2024 10:38 AM [facility] Total Protein 5.4(L) 6.0 - 8.0 g/dL LAB CHEMISTRY METHOD 05/10/2024 10:38 AM [facility] Albumin 2.9(L) 3.2 - 5.0 g/dL LAB CHEMISTRY METHOD 05/10/2024 10:38 AM [facility] Total Bilirubin 0.5 0.0 - 1.4 mg/dL LAB CHEMISTRY METHOD 05/10/2024 10:38 AM [facility] LAB Blood Venous blood specimen / Unknown 05/10/2024 5:29 AM EST 05/10/2024 9:43 AM EST us Alfred Solitario MD LAB BLOOD ORDERABLES Final Resu lt [facility] LAB [address] [place] [address], from Last 3 Months Insurance MEDICARE Care Teams Tin Recovery Worker Relationship Specialty Start Date End Date Alfred Solitario MD [address] [place] [phone] PCP - General Internal Medicine 05/02/24
--- OUTSIDE RECORDS SUMMARY | 2024-08-09 09:49 | XMS_ITS | Encounter Summary ---
Author Organization [facility] Address [address] [place] [address] Care Team Providers Care Hand Brim Ironer Name Role Phone Alfred Solitario MD Primary Care Provider [phone] Encounter Details Date Type Department Care Team (Late st Contact Info) Description 05/05/2024 Lab Requisition [facility] - Main Lab 299 [facility] [employer] [place] [address] Alfred Solitario MD [address] [place] [phone] Unspecified atrial fibrillation (CMS/HCC) Social History [...] LAB CHEMISTRY METHOD 05/06/2024 11:36 AM EST [facility] Potassium 4.9 3.5 - 5.5 mmol/L LAB CHEMISTRY METHOD 05/06/2024 11:36 AM [facility] Chloride 94(L) 96 - 110 mmol/L LAB CHEMISTRY METHOD 05/06/2024 11:36 AM [facility] LAB CO2 28 21 - 32 mmol/L LAB CHEMISTRY METHOD 05/06/2024 11:36 AM [facility] LAB Anion Gap 9 3 - 11 LAB CHEMISTRY METHOD 05/06/2024 11:36 AM [facility] Glucose 105(H) 70 - 100 mg/dL LAB CHEMISTRY METHOD 05/06/2024 11:36 AM [facility] BUN 93(H) 5 - 25 mg/dL LAB CHEMISTRY METHOD 05/06/2024 11:36 AM [facility] Creatinine 1.68(H) 0.70 - 1.30 mg/dL LAB CHEMISTRY METHOD 05/06/2024 11:36 AM [facility] LAB eGFR 41(L) >=60 mL/min/1. 73m2 LAB CHEMISTRY METHOD 05/06/2024 11:36 AM [facility] LAB Comment:Calculation based on the??Chronic Kidney Disease Epidemiology Collaboration (CKD-EPI) equation refit??without adjustment for race. BUN/Creatinine Ratio 55.4 LAB CHEMISTRY METHOD 05/06/2024 11:36 AM [facility] Calcium 8.7 8.5 - 10.5 mg/dL LAB CHEMISTRY METHOD 05/06/2024 11:36 AM [facility] Blood Venous blood specimen / Unknown Venipuncture / Unknown 05/06/2024 5:46 AM EST 05/06/2024 10:49 AM EST us Alfred Solitario MD LAB BLOOD ORDERABLES Final Resu lt [facility] [address] [place] [address], [place] [phone] * (ABNORMAL) Complete blood count (05/06/2024 5:46 AM EST) [facility] WBC 8.8 4.8 - 10.8 K/mcL LAB HEMETOLOGY METHOD 05/06/2024 11:17 AM [facility] RBC 3.00(L) 4.50 - 5.50 M/mcL LAB HEMETOLOGY METHOD 05/06/2024 11:17 AM [facility] Hemoglobin 8.7(L) 13.5 - 17.5 g/dL LAB HEMETOLOGY METHOD 05/06/2024 11:17 AM [facility] LAB Hematocrit 27.9(L) 42.0 - 54.0 % LAB HEMETOLOGY METHOD 05/06/2024 11:17 AM [facility] LAB MCV 93.3 79.0 - 98.0 FL LAB HEMETOLOGY METHOD 05/06/2024 11:17 AM [facility] MCH 29.1 27.0 - 32.0 pcg LAB HEMETOLOGY METHOD 05/06/2024 11:17 AM [facility] MCHC 31.2(L) 32.0 - 37.0 g/dL LAB HEMETOLOGY METHOD 05/06/2024 11:17 AM [facility] LAB RDW 23.5(H) 11.0 - 15.0 % LAB HEMETOLOGY METHOD 05/06/2024 11:17 AM [facility] LAB Platelets 310 130 - 400 K/mcL LAB HEMETOLOGY METHOD 05/06/2024 11:17 AM [facility] MPV 10.8 7.0 - 11.0 FL LAB HEMETOLOGY METHOD 05/06/2024 11:17 AM [facility] NRBC 0.0 <1.0 % LAB HEMETOLOGY METHOD 05/06/2024 11:17 AM [facility] NRBC Absolute 0.00 <0.10 K/mcL LAB HEMETOLOGY METHOD 05/06/2024 11:17 AM EST [facility] Blood Venous blood specimen / Unknown Venipuncture / Unknown 05/06/2024 5:46 AM EST 05/06/2024 10:49 AM EST us Alfred Solitario MD LAB BLOOD ORDERABLES Final Resu lt [facility] [address] [place] [address], documented in this encounter Visit Diagnoses Diagnosis Unspecified atrial fibrillation (CMS/HCC) documented in this encounter Care Teams Hand Brim Ironer Relationship Specialty Start Date End Date Alfred Solitario MD [address] [place] [address] PCP - General Internal Medicine 05/02/24 documented as of this encounter
--- OUTSIDE RECORDS SUMMARY | 2024-08-09 09:49 | XMS_ITS | Encounter Summary ---
Author Organization [facility] Address [address] [place] [address] Care Team Providers Care Local Company Refrigerated Truck Driver Name Role Phone Alfred Solitario MD Primary Care Provider [phone] Encounter Details Date Type Department Care Team (Late st Contact Info) Description 05/01/2024 Lab Requisition [facility] - Main Lab 299 [facility] [place] [address] Alfred Solitario MD [address] [place] [phone] Chronic kidney disease, stage 3b (CMS/HCC); [...] mmol/L LAB CHEMISTRY METHOD 05/01/2024 8:46 AM [facility] Potassium 3.8 3.5 - 5.5 mmol/L LAB CHEMISTRY METHOD 05/01/2024 8:46 AM [facility] Chloride 78(L) 96 - 110 mmol/L LAB CHEMISTRY METHOD 05/01/2024 8:46 AM [facility] CO2 34(H) 21 - 32 mmol/L LAB CHEMISTRY METHOD 05/01/2024 8:46 AM [facility] LAB Anion Gap 11 3 - 11 LAB CHEMISTRY METHOD 05/01/2024 8:46 AM [facility] Glucose 103(H) 70 - 100 mg/dL LAB CHEMISTRY METHOD 05/01/2024 8:46 AM [facility] BUN 115(H) 5 - 25 mg/dL LAB CHEMISTRY METHOD 05/01/2024 8:46 AM [facility] Creatinine 2.06(H) 0.70 - 1.30 mg/dL LAB CHEMISTRY METHOD 05/01/2024 8:46 AM [facility] LAB eGFR 32(L) >=60 mL/min/1. 73m2 LAB CHEMISTRY METHOD 05/01/2024 8:46 AM [facility] LAB Comment:Calculation based on the??Chronic Kidney Disease Epidemiology Collaboration (CKD-EPI) equation refit??without adjustment for race. BUN/Creatinine Ratio 55.8 LAB CHEMISTRY METHOD 05/01/2024 8:46 AM [facility] Calcium 8.3(L) 8.5 - 10.5 mg/dL LAB CHEMISTRY METHOD 05/01/2024 8:46 AM [facility] AST (SGOT) 38 10 - 42 unit/L LAB CHEMISTRY METHOD 05/01/2024 8:46 AM [facility] ALT (SGPT) 25 10 - 60 unit/L LAB CHEMISTRY METHOD 05/01/2024 8:46 AM [facility] Alkaline Phosphatase 153(H) 42 - 121 unit/L LAB CHEMISTRY METHOD 05/01/2024 8:46 AM [facility] Total Protein 5.5(L) 6.0 - 8.0 g/dL LAB CHEMISTRY METHOD 05/01/2024 8:46 AM [facility] Albumin 3.4 3.2 - 5.0 g/dL LAB CHEMISTRY METHOD 05/01/2024 8:46 AM [facility] Total Bilirubin 0.6 0.0 - 1.4 mg/dL LAB CHEMISTRY METHOD 05/01/2024 8:46 AM [facility] LAB Blood Venous blood specimen / Unknown Venipuncture / Unknown 05/01/2024 6:27 AM EST 05/01/2024 7:26 AM EST us Alfred Solitario MD LAB BLOOD ORDERABLES Final Resu lt [facility] LAB [address] [place] [address], * (ABNORMAL) Complete blood count (05/01/2024 6:27 AM EST) WBC 10.0 4.8 - 10.8 K/[facility] LAB HEMETOLOGY METHOD 05/01/2024 8:15 AM [facility] RBC 3.10(L) 4.50 - 5.50 M/[facility] LAB HEMETOLOGY METHOD 05/01/2024 8:15 AM [facility] Hemoglobin 8.9(L) 13.5 - 17.5 g/dL LAB HEMETOLOGY METHOD 05/01/2024 8:15 AM [facility] LAB Hematocrit 28.0(L) 42.0 - 54.0 % LAB HEMETOLOGY METHOD 05/01/2024 8:15 AM [facility] LAB MCV 89.5 79.0 - 98.0 FL LAB HEMETOLOGY METHOD 05/01/2024 8:15 AM [facility] MCH 28.4 27.0 - 32.0 pcg LAB HEMETOLOGY METHOD 05/01/2024 8:15 AM [facility] MCHC 31.8(L) 32.0 - 37.0 g/dL LAB HEMETOLOGY METHOD 05/01/2024 8:15 AM [facility] LAB RDW 22.6(H) 11.0 - 15.0 % LAB HEMETOLOGY METHOD 05/01/2024 8:15 AM [facility] LAB Platelets 328 130 - 400 K/mcL LAB HEMETOLOGY METHOD 05/01/2024 8:15 AM [facility] LAB MPV 10.8 7.0 - 11.0 FL LAB HEMETOLOGY METHOD 05/01/2024 8:15 AM [facility] LAB NRBC 0.0 <1.0 % LAB HEMETOLOGY METHOD 05/01/2024 8:15 AM [facility] LAB NRBC Absolute 0.00 <0.10 K/mcL LAB HEMETOLOGY METHOD 05/01/2024 8:15 AM [facility] LAB Blood Venous blood specimen / Unknown Venipuncture / Unknown 05/01/2024 6:27 AM EST 05/01/2024 7:26 AM EST us Alfred Solitario MD LAB BLOOD ORDERABLES Final Resu lt [facility] LAB [address] [place] [address], documented in this encounter Visit Diagnoses Diagnosis Chronic kidney disease, stage 3b (CMS/HCC) Unspecified atrial fibrillation (CMS/HCC) Chronic systolic (congestive) heart failure (CMS/HCC) documented in this encounter Care Teams Local Company Refrigerated Truck Driver Relationship Specialty Start Date End Date Alfred Solitario MD [address] [place] [address] PCP - General Internal Medicine 05/02/24 documented as of this encounter
--- OUTSIDE RECORDS SUMMARY | 2024-08-09 09:49 | XMS_ITS | Encounter Summary ---
Author Organization [facility] Address [address] [place] [address] Care Team Providers Care Floriculturist Name Role Phone Alfred Solitario MD Primary Care Provider [phone] Encounter Details Date Type Department Care Team (Late st Contact Info) Description 05/07/2024 Lab Requisition [facility] - Main Lab 299 [facility] [place] [address] Alfred Solitario MD [address] [place] [phone] Unspecified atrial fibrillation (CMS/HCC); Chronic systolic [...] mmol/L LAB CHEMISTRY METHOD 05/10/2024 10:[address] [facility] Potassium 4.5 3.5 - 5.5 mmol/L LAB CHEMISTRY METHOD 05/10/2024 10:[address] [facility] Chloride 97 96 - 110 mmol/L LAB CHEMISTRY METHOD 05/10/2024 10:[address] [facility] CO2 27 21 - 32 mmol/L LAB CHEMISTRY METHOD 05/10/2024 10:[address] [facility] Anion Gap 9 3 - 11 LAB CHEMISTRY METHOD 05/10/2024 10:[address] [facility] Glucose 122(H) 70 - 100 mg/dL LAB CHEMISTRY METHOD 05/10/2024 10:[address] [facility] BUN 109(H) 5 - 25 mg/dL LAB CHEMISTRY METHOD 05/10/2024 10:[address] [facility] Creatinine 1.96(H) 0.70 - 1.30 mg/dL LAB CHEMISTRY METHOD 05/10/2024 10:[address] [facility] LAB eGFR 34(L) >=60 mL/min/1. 73m2 LAB CHEMISTRY METHOD 05/10/2024 10:[address] [facility] LAB Comment:Calculation based on the??Chronic Kidney Disease Epidemiology Collaboration (CKD-EPI) equation refit??without adjustment for race. BUN/Creatinine Ratio 55.6 LAB CHEMISTRY METHOD 05/10/2024 10:[address] [facility] Calcium 8.4(L) 8.5 - 10.5 mg/dL LAB CHEMISTRY METHOD 05/10/2024 10:[address] [facility] AST (SGOT) 34 10 - 42 unit/L LAB CHEMISTRY METHOD 05/10/2024 10:[address] [facility] ALT (SGPT) 25 10 - 60 unit/L LAB CHEMISTRY METHOD 05/10/2024 10:[address] [facility] Alkaline Phosphatase 158(H) 42 - 121 unit/L LAB CHEMISTRY METHOD 05/10/2024 10:38 AM EST [facility] Total Protein 5.4(L) 6.0 - 8.0 g/dL LAB CHEMISTRY METHOD 05/10/2024 10:[address] [facility] Albumin 2.9(L) 3.2 - 5.0 g/dL LAB CHEMISTRY METHOD 05/10/2024 10:[address] [facility] Total Bilirubin 0.5 0.0 - 1.4 mg/dL LAB CHEMISTRY METHOD 05/10/2024 10:[address] [facility] Blood Venous blood specimen / Unknown 05/10/2024 5:29 AM EST 05/10/2024 9:43 AM EST Alfred Solitario MD LAB BLOOD ORDERABLES Final Resu lt [facility] LAB [address] [place] [address], [place] [phone] * (ABNORMAL) Complete blood count (05/10/2024 5:29 AM EST) WBC 9.7 4.8 - 10.8 K/[facility] LAB HEMETOLOGY METHOD 05/10/2024 9:[address] [facility] RBC 2.90(L) 4.50 - 5.50 /[facility] LAB HEMETOLOGY METHOD 05/10/2024 9:[address] [facility] Hemoglobin 8.4(L) 13.5 - 17.5 g/dL LAB HEMETOLOGY METHOD 05/10/2024 9:[address] [facility] Hematocrit 26.9(L) 42.0 - 54.0 % LAB HEMETOLOGY METHOD 05/10/2024 9:[address] [facility] MCV 93.1 79.0 - 98.0 FL LAB HEMETOLOGY METHOD 05/10/2024 9:54 AM EST [facility] LAB MCH 29.1 27.0 - 32.0 pcg LAB HEMETOLOGY METHOD 05/10/2024 9:[address] [facility] MCHC 31.2(L) 32.0 - 37.0 g/dL LAB HEMETOLOGY METHOD 05/10/2024 9:54 AM EST [facility] RDW 23.0(H) 11.0 - 15.0 % LAB HEMETOLOGY METHOD 05/10/2024 9:54 AM EST [facility] Platelets 292 130 - 400 K/mcL LAB HEMETOLOGY METHOD 05/10/2024 9:[address] [facility] MPV 10.5 7.0 - 11.0 FL LAB HEMETOLOGY METHOD 05/10/2024 9:54 AM EST [facility] NRBC 0.0 <1.0 % LAB HEMETOLOGY METHOD 05/10/2024 9:[address] [facility] NRBC Absolute 0.00 <0.10 K/mcL LAB HEMETOLOGY METHOD 05/10/2024 9:[address] [facility] Blood Venous blood specimen / Unknown Venipuncture / Unknown 05/10/2024 5:29 AM EST 05/10/2024 9:43 AM EST us Alfred Solitario MD LAB BLOOD ORDERABLES Final Resu lt [facility] [address] [place] [address], documented in this encounter Visit Diagnoses Diagnosis Unspecified atrial fibrillation (CMS/HCC) Chronic systolic (congestive) heart failure (CMS/HCC) documented in this encounter Care Teams Floriculturist Relationship Specialty Start Date End Date Alfred Solitario MD [address] [place] [id number] PCP - General Internal Medicine 05/02/24 documented as of this encounter
--- OUTSIDE RECORDS SUMMARY | 2024-08-09 09:49 | XMS_ITS | Encounter Summary ---
Author Organization [facility] Address [address] [place] [address] Care Team Providers Care Jira Developer Name Role Phone Alfred Solitario MD Primary Care Provider [phone] Encounter Details Date Type Department Care Team (Late st Contact Info) Description 05/13/2024 Lab Requisition [facility] [address] [place] [address] Alfred Solitario MD [address] [place] [phone] Unspecified atrial fibrillation (CMS/HCC) Social History [...] (CMS/HCC) documented in this encounter Care Teams Jira Developer Relationship Specialty Start Date End Date Alfred Solitario MD [address] [place] [address] PCP - General Internal Medicine 05/02/24 documented as of this encounter
--- OUTSIDE RECORDS SUMMARY | 2024-08-09 09:50 | XMS_ITS | Encounter Summary ---
Author Organization [facility] Address [address] [place] [address] Care Team Providers Care Machine Rebuilder Name Role Phone Alfred Solitario MD Primary Care Provider [phone] Encounter Details Date Type Department Care Team (Late st Contact Info) Description 05/02/2024 Lab Requisition [facility] - Main Lab [address] [facility] [place] [address] Alfred Solitario MD [address] [place] [address] Acute on chronic systolic (congestive) [...] mmol/L LAB CHEMISTRY METHOD 05/02/2024 8:30 AM [facility] Potassium 3.9 3.5 - 5.5 mmol/L LAB CHEMISTRY METHOD 05/02/2024 8:30 AM [facility] Chloride 82(L) 96 - 110 mmol/L LAB CHEMISTRY METHOD 05/02/2024 8:30 AM [facility] CO2 32 21 - 32 mmol/L LAB CHEMISTRY METHOD 05/02/2024 8:30 AM [facility] Anion Gap 11 3 - 11 LAB CHEMISTRY METHOD 05/02/2024 8:30 AM [facility] Glucose 107(H) 70 - 100 mg/dL LAB CHEMISTRY METHOD 05/02/2024 8:30 AM [facility] BUN 106(H) 5 - 25 mg/dL LAB CHEMISTRY METHOD 05/02/2024 8:30 AM [facility] Creatinine 2.16(H) 0.70 - 1.30 mg/dL LAB CHEMISTRY METHOD 05/02/2024 8:30 AM [facility] eGFR 30(L) >=60 mL/min/1. 73m2 LAB CHEMISTRY METHOD 05/02/2024 8:30 AM [facility] Comment:Calculation based on the??Chronic Kidney Disease Epidemiology Collaboration (CKD-EPI) equation refit??without adjustment for race. BUN/Creatinine Ratio 49.1 LAB CHEMISTRY METHOD 05/02/2024 8:30 AM [facility] Calcium 8.4(L) 8.5 - 10.5 mg/dL LAB CHEMISTRY METHOD 05/02/2024 8:30 AM [facility] AST (SGOT) 37 10 - 42 unit/L LAB CHEMISTRY METHOD 05/02/2024 8:30 AM [facility] ALT (SGPT) 24 10 - 60 unit/L LAB CHEMISTRY METHOD 05/02/2024 8:30 AM [facility] Alkaline Phosphatase 144(H) 42 - 121 unit/L LAB CHEMISTRY METHOD 05/02/2024 8:30 AM [facility] Total Protein 5.5(L) 6.0 - 8.0 g/dL LAB CHEMISTRY METHOD 05/02/2024 8:30 AM [facility] Albumin 3.3 3.2 - 5.0 g/dL LAB CHEMISTRY METHOD 05/02/2024 8:30 AM [facility] Total Bilirubin 0.7 0.0 - 1.4 mg/dL LAB CHEMISTRY METHOD 05/02/2024 8:30 AM [facility] Blood Venous blood specimen / Unknown Venipuncture / Unknown 05/02/2024 7:02 AM EST 05/02/2024 7:44 AM EST us Alfred Solitario MD LAB BLOOD ORDERABLES Final Resu lt [facility] [address] [place] [address], [place] [phone] * (ABNORMAL) Complete blood count (05/02/2024 7:02 AM EST) WBC 9.6 4.8 - 10.8 K/mcL LAB HEMETOLOGY METHOD 05/02/2024 8:04 AM [facility] RBC 3.00(L) 4.50 - 5.50 M/mcL LAB HEMETOLOGY METHOD 05/02/2024 8:04 AM [facility] Hemoglobin 8.6(L) 13.5 - 17.5 g/dL LAB HEMETOLOGY METHOD 05/02/2024 8:04 AM [facility] Hematocrit 26.9(L) 42.0 - 54.0 % LAB HEMETOLOGY METHOD 05/02/2024 8:04 AM [facility] MCV 89.4 79.0 - 98.0 FL LAB HEMETOLOGY METHOD 05/02/2024 8:04 AM EST [facility] MCH 28.6 27.0 - 32.0 pcg LAB HEMETOLOGY METHOD 05/02/2024 8:04 AM [facility] MCHC 32.0 32.0 - 37.0 g/dL LAB HEMETOLOGY METHOD 05/02/2024 8:04 AM [facility] RDW 23.0(H) 11.0 - 15.0 % LAB HEMETOLOGY METHOD 05/02/2024 8:04 AM [facility] Platelets 304 130 - 400 K/mcL LAB HEMETOLOGY METHOD 05/02/2024 8:04 AM [facility] MPV 10.4 7.0 - 11.0 FL LAB HEMETOLOGY METHOD 05/02/2024 8:04 AM [facility] NRBC 0.0 <1.0 % LAB HEMETOLOGY METHOD 05/02/2024 8:04 AM [facility] NRBC Absolute 0.00 <0.10 K/mcL LAB HEMETOLOGY METHOD 05/02/2024 8:04 AM [facility] Blood Venous blood specimen / Unknown Venipuncture / Unknown 05/02/2024 7:02 AM EST 05/02/2024 7:44 AM EST us Alfred Solitario MD LAB BLOOD ORDERABLES Final Resu lt [facility] [address] [place] [address], documented in this encounter Visit Diagnoses Diagnosis Acute on chronic systolic (congestive) heart failure (CMS/HCC) documented in this encounter Care Teams 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
[2024-08-09 12:41] LABS: Anion Gap 14 (12-20); Blood Urea Nitrogen 66 mg/dL (9-16); Carbon Dioxide 26 mmol/L (22-29); Chloride 98 mmol/L (96-108); Estimated Glomerular Filt Rate 48; Potassium 3.4 mmol/L (3.3-5.1); Sodium 135 mmol/L (135-145)
== END 2024-08-09 09:13 | disposition home or self-care (01) ==
LOC: HO.WFDLDS 09:12
PROVIDERS: Visit Provider Internal Medicine Nephrology
DX: N18.32 Chronic kidney disease, stage 3b (principal)
CPT/HCPCS: 36415; 80051; 82565; 84520

== ENCOUNTER 2024-08-16 09:17 | Inpatient (IN) | payer MEDICARE, SELFPAY ==
[2024-08-16] VITALS (9 sets, daily range): BP systolic 99–114; BP diastolic 44–61; PULSE 60–78; RESP 13–20; TEMP 36.1–36.8; O2SAT 94–100; BMI 29.7
--- NOTE | ~2024-08-16 | US_ITS ---
EXAMINATION: Ultrasound-guided insertion of peritoneal catheter. CLINICAL INDICATION: Persistent hemorrhagic ascites. TECHNIQUE: Following explaining ultrasound-guided peritoneal drainage catheter procedure, benefits in risk, a written consent was obtained. Patient was placed supine on ultrasound stretcher and preliminary ultrasound imaging was obtained through the abdomen. Right para midline anterior abdomen was selected and marked on the skin. The marked site was cleaned and draped in usual sterile manner. 1% lidocaine was instilled at puncture site. Through small skin incision a 5 Rwandan Yueh catheter was advanced obliquely from medial to lateral aspect in the subcutaneous fashion intraperitoneally. After obtaining fluid return, stylet was withdrawn and 0.035 J-wire was inserted through the Yueh catheter. The catheter was removed. Over the guidewire a 8 Rwandan Rodriguez-Arroyo catheter was inserted with the stiffener in place in the peritoneal fluid. The guidewire and stiffener were removed and a pigtail was formed following pulling the thread. The catheter was connected via [address] valve and connecting cannula to vacuum bottles. While the fluid was being drained the catheter was anchored to the skin with 3 0 nonabsorbable 3 stitches anchoring the catheter to the skin and deep tissues. A sterile dressing applied postprocedure without immediate complications. Patient was monitored during the examination tolerated procedure extremely well. Patient was sent to floor after the procedure. FINDINGS/ US/US drain cathie retro perc IMPRESSION: Successful ultrasound-guided placement of 8 Rwandan APD catheter in the right lower quadrant peritoneal space. On table approximately 2 L of hemorrhagic fluid was drained without immediate complications. Electronically signed by: Norm Aranda MD 08/24/2024 04:26 PM EDT
--- NOTE | ~2024-08-16 | US_ITS ---
Ultrasound paracentesis History: Ascites. Risks and benefits and possible complications were discussed with the patient and consent form was signed. A safe pocket of ascitic fluid was identified using ultrasound guidance, and the overlying skin was marked. The abdomen prepped and draped in sterile fashion. 1% lidocaine was used as a local anesthetic. Using ultrasound guidance, a 5 fr catheter was placed into the ascitic pocket. 3.0 liters of dark non-clotting, blood tinged fluid was removed passively. The catheter was then removed. A few b2b outside sales representative images from before and after the examination were obtained. The procedure was performed by Holger Sheppard PA-C and supervised by Dr. Currie. US/US paracentesis abd w/image Impression: Ultrasound-guided paracentesis as described above. No immediate complications Electronically signed by: Jeremy Saha MD 08/24/2024 03:09 PM EDT RP
--- NOTE | ~2024-08-16 | US_ITS ---
Ultrasound paracentesis History: Ascites. Risks and benefits and possible complications were discussed with the patient and consent form was signed. A safe pocket of ascitic fluid was identified using ultrasound guidance, and the overlying skin was marked. The abdomen prepped and draped in sterile fashion. 1% lidocaine was used as a local anesthetic. Using ultrasound guidance, a 5 fr catheter was placed into the ascitic pocket. 3.0 liters of valarie fluid was removed passively. The catheter was then removed. A few medical center representative images from before and after the examination were obtained. The procedure was performed by Holger Sheppard PA-C and supervised by Dr. Jordan. US/US paracentesis abd w/image Impression: Ultrasound-guided paracentesis as described above. No immediate complications Electronically signed by: Silver Jordan MD 08/17/2024 03:43 PM [facility]
--- NOTE | ~2024-08-16 | US_ITS ---
EXAMINATION: US GUIDED PARACENTESIS AND CATHETER INSERTION CLINICAL INFORMATION: Malignant/hemorrhagic effusion. Needs long-term drainage COMPARISON: None available. TECHNIQUE: Following explaining ultrasound-guided APD catheter insertion for chronic ascites drainage procedure, benefits andd risk, a written consent was obtained. Patient was placed supine on ultrasound stretcher with preliminary ultrasound imaging was obtained. An optimal site was selected along the right lower quadrant and marked on the skin. The marked area was cleaned and draped in usual sterile manner. 1% local Xylocaine was inserted puncture site. Through a small skin incision a 4 Omani Yueh catheter was advanced into the peritoneal space. After observing fluid return, a small 0.035 guidewire is advanced after removing stylet. The catheter was removed as well.. A 8 Omani APD catheter with stiffener was inserted over the guidewire into the peritoneal space. The stiffener was loosened and the catheter was advanced into the peritoneal space. The guidewire and the stiffener were removed. Catheter was connected to a drainage bag way valve system. 3-0 suture was applied at the puncture site anchoring the catheter to the skin. Dressing applied post procedure. Patient tolerated procedure extremely well. No conscious sedation was utilized. FINDINGS/ US/US paracentesis abd w/image IMPRESSION: On preliminary ultrasound imaging there is a large amount of fluid visualized. Successful ultrasound-guided placement of a 8 Omani APD catheter in the right lower quadrant peritoneal space. Patient was sent to room with instructions in case home nursing was not available. Electronically signed by: Norm Aranda MD 08/23/2024 05:08 PM EDT
--- NOTE | ~2024-08-16 | CT_ITS ---
CLINICAL HISTORY: ? abd hematoma s p paracenesis yesterday CT abdomen and pelvis without contrast Comparison: US - US PARACENTESIS ABD W/IMAGE - 08/19/24 12:33 EST US/KS/SR - US ABDOMEN LIMITED - 08/18/24 10:25 EST Findings: The lung bases are clear. The heart is enlarged. There is a cardiac pacemaker. Severe pancreatic volume loss. Mild scarring within the bilateral kidneys. Remaining abdominal organs are unremarkable. There is a large calcified gallstone within the gallbladder. There is a large amount of ascites with involvement of all 4 quadrants. There is a small amount of hyperdense fluid within the right lower quadrant. No bowel obstruction, pneumoperitoneum, or pneumatosis. There is colonic diverticulosis without diverticulitis. Poorly distended urinary bladder. Normal-sized prostate. Appendix not visualized. There is a stent within the right external iliac artery. There are severe atherosclerotic changes No acute fracture. IMPRESSION: There is a large amount of ascites. Small amount of associated hemoperitoneum at the level of the right lower quadrant. This document has been electronically signed by: Guillermina Busby MD on 08/20/2024 18:56:34
--- NOTE | ~2024-08-16 | XR_ITS ---
EXAMINATION: XR CHEST 2 VIEWS HISTORY: FLUID WT GAIN COMPARISON: Comparison is made with the prior examination dated 04/20/2024. FINDINGS: AP and lateral views of the chest are submitted. A left subclavian dual-chamber pacemaker is unchanged in position. The lungs are clear. There is no pleural effusion, pneumothorax, or pulmonary vascular congestion. The heart is enlarged. The aorta is calcified. The patient is status post median sternotomy and CABG. The bones are intact. XR/XR chest 2V IMPRESSION: Cardiomegaly. No acute cardiopulmonary abnormality. Electronically signed by: Sebastián Arias MD 08/16/2024 10:05 AM [facility] [place] [place]
--- NOTE | ~2024-08-16 | US_ITS ---
EXAMINATION: US ABDOMEN LIMITED CLINICAL INFORMATION: Cirrhosis.. COMPARISON: Correlated to CT dated April 15, 2024. TECHNIQUE: Real-time imaging of the right upper quadrant abdominal viscera. Limited exam. FINDINGS: LIVER: Liver measures 16 cm. Nodular surface. Increased echotexture. No solid or cystic lesion. Main portal vein is patent with normal hepatopedal flow direction. GALLBLADDER: Intraluminal hyperechoic and isoechoic abnormality. Focal mixed echotexture abnormality at the gallbladder fundus without flow on color Doppler interrogation. Gallbladder wall measures 6 mm. COMMON BILE DUCT: 3 mm. FREE FLUID: Moderate to large volume. US/US abdomen limited IMPRESSION: Cirrhosis without gross mass seen by electro mechanical technologist. Ascites, moderate to large volume. Cholelithiasis. Focal area of possible adenomyosis, gallbladder fundus. Electronically signed by: Konstantin Delgado MD 08/18/2024 11:22 AM NIC
--- NOTE | 2024-08-16 09:51 | ED.GENADULT ---
HPI - General Adult General Chief complaint: General Medical Stated complaint: diff breathing Time Seen by Provider: 08/16/24 09:35 Source: patient and family Mode of arrival: ambulatory Limitations: no limitations History of Present Illness HPI narrative: This is 83 years old the patient with a history of heart failure, chronic kidney disease presented to the emergency department complaining of increasing weight he stated that he gain 23 lb over the last 2 weeks. Denies any chest pain but he has some shortness of breath. Patient is on diuretic Aldactone was recently resume and torsemide 20 mg b.i.d. Onset (ago): week(s) Radiation: non-radiation Severity: mild Relieving factors: none Related Data Home Medications ?Medication ?Instructions ?Recorded ?Confirmed finasteride 5 mg tablet 5 mg PO DAILY@0900 06/18/21 08/02/24 pantoprazole 40 mg tablet,delayed 40 mg PO BID 06/18/21 08/02/24 release allopurinol 100 mg tablet 100 mg PO DAILY@0900 10/27/23 08/02/24 lorazepam 0.5 mg tablet 0.5 mg PO DAILY PRN Anxiety 03/04/24 08/02/24 levothyroxine 88 mcg tablet 88 mcg DAILY@0600 04/12/24 08/02/24 calcium carbonate 500 mg PO BEDTIME 08/02/24 08/02/24 cholecalciferol (vitamin D3) 25 25 mcg PO DAILY 08/02/24 08/02/24 mcg (1,000 unit) tablet (Vitamin D3) magnesium oxide 400 mg PO DAILY@1700 08/02/24 08/02/24 spironolactone 25 mg tablet 25 mg PO DAILY 08/16/24 Previous Rx's ?Medication ?Instructions ?Recorded amiodarone 200 mg tablet 200 mg PO DAILY@1700 #90 tabs 03/18/24 rivaroxaban 15 mg tablet (Xarelto) 15 mg PO DAILY@1700 #90 tabs 03/22/24 gabapentin 600 mg tablet 600 mg PO BEDTIME 90 days #90 tabs 03/23/24 atorvastatin 40 mg tablet 40 mg PO BEDTIME #90 tabs 04/09/24 torsemide 20 mg tablet 20 mg PO DAILY #90 tabs 06/23/24 Allergies Allergy/AdvReac Type Severity Reaction Status Date / Time doxycycline Allergy Unknown Unknown Verified 08/16/24 09:25 narcotics AdvReac Nausea and Uncoded 08/16/24 09:25 Vomiting, hypotensive Review of Systems Constitutional: Constitutional: Reports no additional constitutional complaints Cardiovascular: Cardiovascular: Reports no additional cardiovascular complaints Neurologic: Reports system reviewed and no additional complaints, except as documented [facility] Past Medical History [facility] Narrative: Chronic kidney disease/CHF/cardiomyopathy Medical History Hyponatremia Iron deficiency anemia Elevated LFTs CKD (chronic kidney disease) LIBRA (acute kidney injury) Ischemic cardiomyopathy History of torsades de pointes Atherosclerotic cardiovascular disease Elevated serum creatinine Biventricular ICD (implantable cardioverter-defibrillator) in place Syncope RBBB PVD (peripheral vascular disease) Hx of thyroid nodule GERD (gastroesophageal reflux disease) CAD (coronary artery disease) BPH (benign prostatic hyperplasia) Asthma Atrial fibrillation Surgical History Hx of CABG Hx of cardiac cath H/O right knee surgery H/O heart surgery Family History Family History Mother Breast cancer Father Heart attack Brother Stomach cancer Brother Heart disease Social History Social History Household Members: None Housing: House Do you presently have visiting nurse or other home services: Yes Alcohol intake: former Comment: pt refusing red socks, alarms, and camera Patient Tobacco Use Status: Former Tobacco user Years Smoked: 25 +/- Smoked in Last 30 Days: No Use of substances other than those prescribed or required for medical reasons: No Advance Directives: Yes Advance Directives on File: Yes Advance Directives Date on File: 10/31/23 Do you have a plan to hurt others: No Plan Nutrition Risks: No Nutritional Risk service: No Physical Exam ED Vital Signs: Vital Signs - 24 hr 08/16/24 09:23 08/16/24 10:24 08/16/24 12:45 Temperature 97 F 98.2 F 98.2 F Pulse Rate 72 64 62 Respiratory Rate 20 16 16 Blood Pressure 108/47 L 111/54 L 100/57 L Pulse Oximetry 100 96 96 Oxygen Delivery Method Room Air Room Air Room Air 08/16/24 14:28 Temperature Pulse Rate 78 Respiratory Rate 16 Blood Pressure 114/61 Pulse Oximetry 94 Oxygen Delivery Method Room Air BMI result Body Mass Index 29.7 No acute distress Const General: cooperative Nutritional Appearance: average body habitus Orientation/consciousness: patient oriented x3 Limitations: no limitations HENMT Head: Yes normal to inspection General nose exam: Normal external nose present Face and sinus: Yes normal facial exam Mouth: Normal oral and palatal mucosa present Throat: Yes posterior oropharynx normal Neck Neck: Yes normal visual inspection Chest Chest palpation & inspection: normal inspection of the chest Resp Effort & Inspection: normal respiratory effort Auscultation: rhonchi Cardio Jugular venous distension: no JVD Rate: regular rate Rhythm: regular rhythm GI Other: Ascites is present Palpation (GI): Soft to palpation, not firm and nontender Auscultation: normal bowel sounds Neuro General: patient oriented x3 Course Reevaluation(s) Reevaluation #1: Discussed the case with Nephrology Dr. Gilmore recommend admission for IV diuretic paracentesis already been ordered Time: 15:40 Medications Administered Discontinued Medications Generic Name Dose Route Start Last Admin Trade Name Freq PRN Reason Stop Dose Admin Furosemide 40 mg 08/16/24 13:53 08/16/24 14:57 Furosemide 40 Mg/4 Ml Vial IVPUSH 08/16/24 13:54 Not Given ONCE ONE Protocol Medical Decision Making Medical Decision Making [facility] Narrative: Patient presented to the ED with a chief complaint of increasing weight shortness of breath we will obtain labs chest x-ray EKG Differential Diagnosis Differential Diagnoses: The differential diagnosis associated with the presentation includes CHF/kidney failure Admission/Observation Consideration of admission/observation: Escalation of care including admission/observation considered Consult Healthcare Provider Management of the patient was discussed with: Dry Roaster Lab Data [facility] Lab Attestation statement: I reviewed the patient's lab results. 08/16/24 10:07 08/16/24 10:07 Labs: Lab Results 08/16/24 Range/Units 10:07 WBC 10.3 (4.8-10.8) X10*3/uL RBC 2.83 L (4.60-5.80) X10*6/uL Hgb 9.2 L (14.0-18.0) g/dl Hct 27.2 L (42.0-52.0) % MCV 96.1 (80.0-98.0) fL MCH 32.5 (27.0-33.0) pg MCHC 33.8 (31.0-36.0) g/dl RDW 17.8 H (11.0-16.0) % Plt Count 268 (160-400) X10*3/uL MPV 10.1 (9.4-12.4) fL Immature Gran % (Auto) 1.2 H (0.0-0.4) % Neut % (Auto) 81.7 H (45-73) % Lymph % (Auto) 7.7 L (20-40) % [place] % (Auto) 7.6 (2-11) % Eos % (Auto) 1.4 (0-4) % Baso % (Auto) 0.4 (0-2) % Lymph # (Auto) 0.8 L (1.2-4.9) X10*3/uL [place] # (Auto) 0.8 (0.1-1.2) X10*3/uL Eos # (Auto) 0.1 (0.0-0.4) X10*3/uL Baso # (Auto) 0.0 (0.0-0.2) X10*3/uL Abs Immat Gran (auto) 0.12 H (0.00-0.03) X10*3/uL Absolute Neuts (auto) 8.5 H (2.0-8.3) x10*3/uL Absolute Nucleated RBC 0.000 (0.0-0.012) X10*3/uL Nucleated RBC % (auto) 0.0 (0.0-0.2) /100WBC PT 30.8 H D (10.9-12.4) SEC INR 2.6 H (0.9-1.1) APTT 40.7 H (26.0-36.8) SEC Sodium 131 L (135-145) mmol/L Potassium 4.4 D (3.3-5.1) mmol/L Chloride 96 (96-108) mmol/L Carbon Dioxide 23 (22-29) mmol/L Anion Gap 16 (12-20) BUN 80 H (9-16) mg/dL Creatinine 1.81 H (0.5-1.4) mg/dL Estim Creat Clear Calc 30.3 Estimated GFR 36 Random Glucose 118 H (60-115) mg/dL Calcium 8.5 (8.4-10.2) mg/dL Total Bilirubin 1.0 (0.0-1.0) mg/dL Direct Bilirubin 0.5 (0.0-0.5) mg/dL AST 36 (5-37) U/L ALT 20 (0-40) U/L Alkaline Phosphatase 123 H (39-117) U/L Troponin I High Sens 162.9 H* (<3.5-35.0) ng/L B-Natriuretic Peptide 1832 H (<100) pg/mL Total Protein 6.2 L (6.5-8.0) g/dL Albumin 3.5 (3.5-5.0) g/dL Independent Interpretation I performed an independent interpretation of an: EKG Radiology Impression Discussion of test interpretation with radiology: I have reviewed the radiologist's reading. Independent Historian Clinical information obtained from an independent historian. History obtained from or confirmed by: Other (daughter) External Record Review External record reviewed: Inpatient record Chronic Conditions Patient?s care impacted by: Other (CAD/CRF) Critical Care Time Critical Care Time Critical Care Time: Yes Total Critical Care Time: 60 Attestation: IV Lasix talking to the nephrology talking to the hospitalist Discharge Plan Discharge Clinical Impression: Anasarca Ascites Qualifiers: Ascites type: other type Qualified Code(s): R18.8 - Other ascites Renal failure, chronic Qualifiers: Chronic kidney disease stage: unspecified stage Qualified Code(s): N18.9 - Chronic kidney disease, unspecified Patient Disposition: Admitted As Inpatient
--- NOTE | 2024-08-16 09:52 | ECG_ITS ---
Test Reason : sob Blood Pressure : */* mmHG Vent. Rate : 67 BPM Atrial Rate : 67 BPM P-R Int : 128 ms QRS Dur : 154 ms QT Int : 498 ms P-R-T Axes : 9 169 24 degrees QTcB Int : 526 ms AV dual-paced rhythm Biventricular pacemaker detected Abnormal ECG When compared with ECG of 01-Aug-2024 10:01, Vent. rate has increased by 3 bpm Referred By: Taz Fernandez Electronically Signed By: HILLARY GEIGER MD
[2024-08-16 10:11] LABS: MANUAL DIFF FLAG NO
[2024-08-16 10:14] LABS: Basophils Percent Auto 0.4 % (0-2); Eosinophils Absolute Auto 0.1 X10*3/uL (0.0-0.4); Eosinophils Percent Auto 1.4 % (0-4); Hematocrit 27.2 % (42.0-52.0); Hemoglobin 9.2 g/dl (14.0-18.0); Imm Gran Abs Auto 0.12 X10*3/uL (0.00-0.03); Imm Gran Pct Auto 1.2 % (0.0-0.4); Lymphocytes Absolute Auto 0.8 X10*3/uL (1.2-4.9); Lymphocytes Percent Auto 7.7 % (20-40); Mean Corpuscular HGB Conc 33.8 g/dl (31.0-36.0); Mean Corpuscular Hemoglobin 32.5 pg (27.0-33.0); Mean Corpuscular Volume 96.1 fL (80.0-98.0); Mean Platelet Volume 10.1 fL (9.4-12.4); Monocytes Absolute Auto 0.8 X10*3/uL (0.1-1.2); Monocytes Percent Auto 7.6 % (2-11); Neutrophils Absolute Auto 8.5 x10*3/uL (2.0-8.3); Neutrophils Percent Auto 81.7 % (45-73); Platelet Count 268 X10*3/uL (160-400); Red Blood Count 2.83 X10*6/uL (4.60-5.80); Red Cell Distribution Width 17.8 % (11.0-16.0); White Blood Count 10.3 X10*3/uL (4.8-10.8)
[2024-08-16 10:21] LABS: INTERNATIONAL NORM RATIO 2.6 (0.9-1.1); Prothrombin Time 30.8 SEC (10.9-12.4)
[2024-08-16 10:23] LABS: Partial Thromboplastin Time 40.7 SEC (26.0-36.8)
[2024-08-16 10:29] LABS: Alanine Aminotransferase 20 U/L (0-40); Albumin Level 3.5 g/dL (3.5-5.0); Alkaline Phosphatase 123 U/L (39-117); Anion Gap 16 (12-20); Aspartate Amino Transferase 36 U/L (5-37); Bilirubin Direct 0.5 mg/dL (0.0-0.5); Blood Urea Nitrogen 80 mg/dL (9-16); Calcium 8.5 mg/dL (8.4-10.2); Carbon Dioxide 23 mmol/L (22-29); Chloride 96 mmol/L (96-108); Creatinine Clr Calc Pharmacy 30.3; Estimated Glomerular Filt Rate 36; Glucose Random 118 mg/dL (60-115); Potassium 4.4 mmol/L (3.3-5.1); Sodium 131 mmol/L (135-145); Total Protein 6.2 g/dL (6.5-8.0)
[2024-08-16 10:34] LABS: B Type Natriuretic Peptide 1832 pg/mL (<100)
--- OUTSIDE RECORDS SUMMARY | 2024-08-16 10:36 | XMS_ITS | Encounter Summary ---
Author Organization [facility] Address [address] [place] [address] Care Team Providers Care Manager Systems Name Role Phone Alfred Solitario MD Primary Care Provider [phone] Encounter Details Date Type Department Care Team (Late st Contact Info) Description 05/07/2024 Lab Requisition [facility] - Main Lab [address] [facility] [place] [address] Alfred Solitario MD [address] [place] [address] Unspecified atrial fibrillation (CMS/HCC); Chronic systolic [...] mmol/L LAB CHEMISTRY METHOD 05/10/2024 10:38 AM [facility] Potassium 4.5 3.5 - 5.5 mmol/L LAB CHEMISTRY METHOD 05/10/2024 10:38 AM [facility] Chloride 97 96 - 110 mmol/L LAB CHEMISTRY METHOD 05/10/2024 10:38 AM [facility] CO2 27 21 - 32 mmol/L LAB CHEMISTRY METHOD 05/10/2024 10:38 AM [facility] Anion Gap 9 3 - 11 LAB CHEMISTRY METHOD 05/10/2024 10:38 AM [facility] Glucose 122(H) 70 - 100 mg/dL LAB CHEMISTRY METHOD 05/10/2024 10:38 AM [facility] BUN 109(H) 5 - 25 mg/dL LAB CHEMISTRY METHOD 05/10/2024 10:38 AM [facility] Creatinine 1.96(H) 0.70 - 1.30 mg/dL LAB CHEMISTRY METHOD 05/10/2024 10:38 AM [facility] eGFR 34(L) >=60 mL/min/1. 73m2 LAB CHEMISTRY METHOD 05/10/2024 10:38 AM [facility] Comment:Calculation based on the??Chronic Kidney Disease Epidemiology Collaboration (CKD-EPI) equation refit??without adjustment for race. BUN/Creatinine Ratio 55.6 LAB CHEMISTRY METHOD 05/10/2024 10:38 AM [facility] Calcium 8.4(L) 8.5 - 10.5 mg/dL LAB CHEMISTRY METHOD 05/10/2024 10:38 AM [facility] AST (SGOT) 34 10 - 42 unit/L LAB CHEMISTRY METHOD 05/10/2024 10:38 AM [facility] ALT (SGPT) 25 10 - 60 unit/L LAB CHEMISTRY METHOD 05/10/2024 10:38 AM [facility] Alkaline Phosphatase 158(H) 42 - 121 unit/L LAB CHEMISTRY METHOD 05/10/2024 10:[address] [facility] Total Protein 5.4(L) 6.0 - 8.0 g/dL LAB CHEMISTRY METHOD 05/10/2024 10:38 AM [facility] Albumin 2.9(L) 3.2 - 5.0 g/dL LAB CHEMISTRY METHOD 05/10/2024 10:38 AM [facility] Total Bilirubin 0.5 0.0 - 1.4 mg/dL LAB CHEMISTRY METHOD 05/10/2024 10:38 AM [facility] Blood Venous blood specimen / Unknown 05/10/2024 5:29 AM EST 05/10/2024 9:43 AM EST Alfred Solitario MD LAB BLOOD ORDERABLES Final Resu lt [facility] [address] [place] [address], [place] [phone] * (ABNORMAL) Complete blood count (05/10/2024 5:29 AM EST) WBC 9.7 4.8 - 10.8 K/[facility] LAB HEMETOLOGY METHOD 05/10/2024 9:54 AM [facility] RBC 2.90(L) 4.50 - 5.50 /[facility] LAB HEMETOLOGY METHOD 05/10/2024 9:54 AM [facility] Hemoglobin 8.4(L) 13.5 - 17.5 g/dL LAB HEMETOLOGY METHOD 05/10/2024 9:54 AM [facility] Hematocrit 26.9(L) 42.0 - 54.0 % LAB HEMETOLOGY METHOD 05/10/2024 9:54 AM [facility] MCV 93.1 79.0 - 98.0 FL LAB HEMETOLOGY METHOD 05/10/2024 9:[address] [facility] MCH 29.1 27.0 - 32.0 pcg LAB HEMETOLOGY METHOD 05/10/2024 9:54 AM [facility] MCHC 31.2(L) 32.0 - 37.0 g/dL LAB HEMETOLOGY METHOD 05/10/2024 9:[address] [facility] RDW 23.0(H) 11.0 - 15.0 % LAB HEMETOLOGY METHOD 05/10/2024 9:[address] [facility] Platelets 292 130 - 400 K/mcL LAB HEMETOLOGY METHOD 05/10/2024 9:54 AM [facility] MPV 10.5 7.0 - 11.0 FL LAB HEMETOLOGY METHOD 05/10/2024 9:[address] [facility] NRBC 0.0 <1.0 % LAB HEMETOLOGY METHOD 05/10/2024 9:54 AM [facility] NRBC Absolute 0.00 <0.10 K/mcL LAB HEMETOLOGY METHOD 05/10/2024 9:54 AM [facility] Blood Venous blood specimen / Unknown Venipuncture / Unknown 05/10/2024 5:29 AM EST 05/10/2024 9:43 AM EST us Alfred Solitario MD LAB BLOOD ORDERABLES Final Resu lt [facility] [address] [place] [address], documented in this encounter Visit Diagnoses Diagnosis Unspecified atrial fibrillation (CMS/HCC) Chronic systolic (congestive) heart failure (CMS/HCC) documented in this encounter Care Teams Manager Systems Relationship Specialty Start Date End Date Alfred Solitario MD [address] [place] [phone] PCP - General Internal Medicine 05/02/24 documented as of this encounter
--- OUTSIDE RECORDS SUMMARY | 2024-08-16 10:36 | XMS_ITS | Encounter Summary ---
Author Organization [facility] Address [address] [place] [address] Care Team Providers Care Cmm Technician Name Role Phone Alfred Solitario MD Primary Care Provider [phone] Encounter Details Date Type Department Care Team (Late st Contact Info) Description 05/13/2024 Lab Requisition [facility] - Main Lab [address] [facility] [place] [address] Alfred Solitario MD [address] [place] [address] Unspecified atrial fibrillation (CMS/HCC) Social History [...] (CMS/HCC) documented in this encounter Care Teams Cmm Technician Relationship Specialty Start Date End Date Alfred Solitario MD [address] [place] [address] PCP - General Internal Medicine 05/02/24 documented as of this encounter
--- OUTSIDE RECORDS SUMMARY | 2024-08-16 10:36 | XMS_ITS | Encounter Summary ---
Author Organization [facility] Address [address] [place] [address] Care Team Providers Care Tube Machine Operator Name Role Phone Alfred Solitario MD Primary Care Provider [phone] Encounter Details Date Type Department Care Team (Late st Contact Info) Description 05/01/2024 Lab Requisition [facility] - Main Lab [address] [facility] [place] [address] Alfred Solitario MD [address] [place] [address] Chronic kidney disease, stage 3b (CMS/HCC); [...] mmol/L LAB CHEMISTRY METHOD 05/01/2024 8:46 AM [facility] Potassium 3.8 3.5 - 5.5 mmol/L LAB CHEMISTRY METHOD 05/01/2024 8:46 AM [facility] Chloride 78(L) 96 - 110 mmol/L LAB CHEMISTRY METHOD 05/01/2024 8:46 AM [facility] CO2 34(H) 21 - 32 mmol/L LAB CHEMISTRY METHOD 05/01/2024 8:46 AM [facility] Anion Gap 11 3 - 11 LAB CHEMISTRY METHOD 05/01/2024 8:46 AM [facility] Glucose 103(H) 70 - 100 mg/dL LAB CHEMISTRY METHOD 05/01/2024 8:46 AM [facility] BUN 115(H) 5 - 25 mg/dL LAB CHEMISTRY METHOD 05/01/2024 8:46 AM [facility] Creatinine 2.06(H) 0.70 - 1.30 mg/dL LAB CHEMISTRY METHOD 05/01/2024 8:46 AM [facility] eGFR 32(L) >=60 mL/min/1. 73m2 LAB CHEMISTRY METHOD 05/01/2024 8:46 AM [facility] Comment:Calculation based on the??Chronic Kidney Disease Epidemiology Collaboration (CKD-EPI) equation refit??without adjustment for race. BUN/Creatinine Ratio 55.8 LAB CHEMISTRY METHOD 05/01/2024 8:46 AM [facility] Calcium 8.3(L) 8.5 - 10.5 mg/dL LAB CHEMISTRY METHOD 05/01/2024 8:46 AM [facility] AST (SGOT) 38 10 - 42 unit/L LAB CHEMISTRY METHOD 05/01/2024 8:46 AM [facility] ALT (SGPT) 25 10 - 60 unit/L LAB CHEMISTRY METHOD 05/01/2024 8:46 AM [facility] Alkaline Phosphatase 153(H) 42 - 121 unit/L LAB CHEMISTRY METHOD 05/01/2024 8:46 AM [facility] Total Protein 5.5(L) 6.0 - 8.0 g/dL LAB CHEMISTRY METHOD 05/01/2024 8:46 AM [facility] Albumin 3.4 3.2 - 5.0 g/dL LAB CHEMISTRY METHOD 05/01/2024 8:46 AM [facility] Total Bilirubin 0.6 0.0 - 1.4 mg/dL LAB CHEMISTRY METHOD 05/01/2024 8:46 AM [facility] Blood Venous blood specimen / Unknown Venipuncture / Unknown 05/01/2024 6:27 AM EST 05/01/2024 7:26 AM EST us Alfred Solitario MD LAB BLOOD ORDERABLES Final Resu lt [facility] [address] [place] [address], * (ABNORMAL) Complete blood count (05/01/2024 6:27 AM EST) WBC 10.0 4.8 - 10.8 K/[facility] LAB HEMETOLOGY METHOD 05/01/2024 8:15 AM [facility] RBC 3.10(L) 4.50 - 5.50 M/[facility] LAB HEMETOLOGY METHOD 05/01/2024 8:15 AM [facility] Hemoglobin 8.9(L) 13.5 - 17.5 g/dL LAB HEMETOLOGY METHOD 05/01/2024 8:15 AM [facility] Hematocrit 28.0(L) 42.0 - 54.0 % LAB HEMETOLOGY METHOD 05/01/2024 8:15 AM [facility] MCV 89.5 79.0 - 98.0 FL LAB HEMETOLOGY METHOD 05/01/2024 8:15 AM [facility] MCH 28.4 27.0 - 32.0 pcg LAB HEMETOLOGY METHOD 05/01/2024 8:15 AM [facility] MCHC 31.8(L) 32.0 - 37.0 g/dL LAB HEMETOLOGY METHOD 05/01/2024 8:15 AM [facility] RDW 22.6(H) 11.0 - 15.0 % LAB HEMETOLOGY METHOD 05/01/2024 8:15 AM [facility] Platelets 328 130 - 400 K/mcL LAB HEMETOLOGY METHOD 05/01/2024 8:15 AM [facility] MPV 10.8 7.0 - 11.0 FL LAB HEMETOLOGY METHOD 05/01/2024 8:15 AM [facility] NRBC 0.0 <1.0 % LAB HEMETOLOGY METHOD 05/01/2024 8:15 AM [facility] NRBC Absolute 0.00 <0.10 K/mcL LAB HEMETOLOGY METHOD 05/01/2024 8:15 AM [facility] Blood Venous blood specimen / Unknown Venipuncture / Unknown 05/01/2024 6:27 AM EST 05/01/2024 7:26 AM EST us Alfred Solitario MD LAB BLOOD ORDERABLES Final Resu lt [facility] [address] [place] [address], documented in this encounter Visit Diagnoses Diagnosis Chronic kidney disease, stage 3b (CMS/HCC) Unspecified atrial fibrillation (CMS/HCC) Chronic systolic (congestive) heart failure (CMS/HCC) documented in this encounter Care Teams Tube Machine Operator Relationship Specialty Start Date End Date Alfred Solitario MD [address] [place] [address] PCP - General Internal Medicine 05/02/24 documented as of this encounter
--- OUTSIDE RECORDS SUMMARY | 2024-08-16 10:36 | XMS_ITS | Encounter Summary ---
Author Organization [facility] Address [address] [place] [address] Care Team Providers Care Vp Integrity Name Role Phone Alfred Solitario MD Primary Care Provider [phone] Encounter Details Date Type Department Care Team (Late st Contact Info) Description 05/03/2024 Lab Requisition [facility] - Main Lab [address] [facility] [employer] [place] [address] Alfred Solitario MD [address] [place] [address] Chronic kidney disease, stage 3b (CMS/HCC); [...] mmol/L LAB CHEMISTRY METHOD 05/03/2024 11:[address] [facility] Potassium 4.5 3.5 - 5.5 mmol/L LAB CHEMISTRY METHOD 05/03/2024 11:[address] [facility] Chloride 84(L) 96 - 110 mmol/L LAB CHEMISTRY METHOD 05/03/2024 11:[address] [facility] CO2 30 21 - 32 mmol/L LAB CHEMISTRY METHOD 05/03/2024 11:[address] [facility] Anion Gap 11 3 - 11 LAB CHEMISTRY METHOD 05/03/2024 11:[address] [facility] Glucose 108(H) 70 - 100 mg/dL LAB CHEMISTRY METHOD 05/03/2024 11:[address] [facility] BUN 107(H) 5 - 25 mg/dL LAB CHEMISTRY METHOD 05/03/2024 11:[address] [facility] Creatinine 2.04(H) 0.70 - 1.30 mg/dL LAB CHEMISTRY METHOD 05/03/2024 11:[address] [facility] eGFR 32(L) >=60 mL/min/1. 73m2 LAB CHEMISTRY METHOD 05/03/2024 11:[address] [facility] Comment:Calculation based on the??Chronic Kidney Disease Epidemiology Collaboration (CKD-EPI) equation refit??without adjustment for race. BUN/Creatinine Ratio 52.5 LAB CHEMISTRY METHOD 05/03/2024 11:[address] [facility] Calcium 8.5 8.5 - 10.5 mg/dL LAB CHEMISTRY METHOD 05/03/2024 11:[address] [facility] AST (SGOT) 34 10 - 42 unit/L LAB CHEMISTRY METHOD 05/03/2024 11:[address] [facility] ALT (SGPT) 24 10 - 60 unit/L LAB CHEMISTRY METHOD 05/03/2024 11:[address] [facility] Alkaline Phosphatase 141(H) 42 - 121 unit/L LAB CHEMISTRY METHOD 05/03/2024 11:[address] [facility] Total Protein 5.6(L) 6.0 - 8.0 g/dL LAB CHEMISTRY METHOD 05/03/2024 11:[address] [facility] Albumin 3.3 3.2 - 5.0 g/dL LAB CHEMISTRY METHOD 05/03/2024 11:[address] [facility] Total Bilirubin 0.7 0.0 - 1.4 mg/dL LAB CHEMISTRY METHOD 05/03/2024 11:[address] [facility] Blood Venous blood specimen / Unknown Venipuncture / Unknown 05/03/2024 5:04 AM EST 05/03/2024 9:46 AM EST us Alfred Solitario MD LAB BLOOD ORDERABLES Final Resu lt [facility] [address] [place] [address], * (ABNORMAL) Complete blood count (05/03/2024 5:04 AM EST) WBC 9.1 4.8 - 10.8 K/mcL LAB HEMETOLOGY METHOD 05/03/2024 10:[address] [facility] RBC 2.90(L) 4.50 - 5.50 M/mcL LAB HEMETOLOGY METHOD 05/03/2024 10:[address] [facility] Hemoglobin 8.4(L) 13.5 - 17.5 g/dL LAB HEMETOLOGY METHOD 05/03/2024 10:[address] [facility] Hematocrit 26.2(L) 42.0 - 54.0 % LAB HEMETOLOGY METHOD 05/03/2024 10:44 AM EST [facility] MCV 91.0 79.0 - 98.0 FL LAB HEMETOLOGY METHOD 05/03/2024 10:[address] [facility] MCH 29.2 27.0 - 32.0 pcg LAB HEMETOLOGY METHOD 05/03/2024 10:[address] [facility] MCHC 32.1 32.0 - 37.0 g/dL LAB HEMETOLOGY METHOD 05/03/2024 10:[address] [facility] RDW 23.0(H) 11.0 - 15.0 % LAB HEMETOLOGY METHOD 05/03/2024 10:[address] [facility] Platelets 302 130 - 400 K/mcL LAB HEMETOLOGY METHOD 05/03/2024 10:[address] [facility] MPV 10.6 7.0 - 11.0 FL LAB HEMETOLOGY METHOD 05/03/2024 10:44 AM EST [facility] NRBC 0.0 <1.0 % LAB HEMETOLOGY METHOD 05/03/2024 10:[address] [facility] NRBC Absolute 0.00 <0.10 K/mcL LAB HEMETOLOGY METHOD 05/03/2024 10:[address] [facility] Blood Venous blood specimen / Unknown Venipuncture / Unknown 05/03/2024 5:04 AM EST 05/03/2024 9:46 AM EST us Alfred Solitario MD LAB BLOOD ORDERABLES Final Resu lt [facility] [address] [place] [address], documented in this encounter Visit Diagnoses Diagnosis Chronic kidney disease, stage 3b (CMS/HCC) Unspecified atrial fibrillation (CMS/HCC) Chronic systolic (congestive) heart failure (CMS/HCC) documented in this encounter Care Teams Vp Integrity Relationship Specialty Start Date End Date Alfred Solitario MD [address] [place] [address] PCP - General Internal Medicine 05/02/24 documented as of this encounter
--- OUTSIDE RECORDS SUMMARY | 2024-08-16 10:36 | XMS_ITS | Continuity of Care Document ---
Author Organization [facility] Address [address] [place] [address]- Care Team Providers Care Farm Machinery Mechanic Name Role Phone Kerri GUILLAUME, Prince Nunez Primary Care Physician [phone] Encounter [facility] Date(s): 07/09/24 - 08/08/24 [facility]/[address] [address]- Encounter Type: Triage Allergies, Adverse Reactions, Alerts [...] virus vaccine, inactivated 04/09/15 Dom rded SARS-CoV-2(COVID-19)mRNA-LNP vac([id number]) 03/27/23 Recorded tetanus/diphtheria/pertussis, acel(Tdap) 1 10/21/22 Recorded tetanus/diphtheria/pertussis, acel(Tdap) 10/21/22 Recorded [id number] 12y+ bivalent booster vax 03/15/22 Recorded SARS-CoV-2 mRNA ([id number]) vax 09/13/21 Recorded SARS-CoV-2 (COVID-19) mRNA BNT-162b2 [...] Recorded 1Result Comment: Unit: Unknown Route: Intramuscular Skid Worker: GlaxoSmithKline 2Result Comment: Unit: Unknown Route: Intramuscular Skid Worker: Sanofi Pasteur 3Result Comment: Unit: Unknown Route: Intramuscular Skid Worker: Seqirus 4Result Comment: Unit: Unknown Route: Intramuscular Skid Worker: GlaxoSmithKline 5Result Comment: Unit: Unknown Route: Intramuscular Skid Worker: GlaxoSmithPromachos Holdingine Medications allopurinol 100 mg oral tablet 1, tablet, By Mouth, Daily, # 90 tablet, Refills 1, Maintenance, 07/15/24 8:45:00 AM EST, Route to Pharmacy Electronically, [facility], 161.5, cm, 06/07/24 14:50:00 EST, Height, 71.5, kg, 06/07/24 14:50:00 EST, Dry Weight Start Date: 07/15/24 Status: Ordered Quantity: 90.0 Unit: tablet Repeat number: 1 amiodarone 200 mg oral tablet 400 mg, 2, tablet, By Mouth, 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, roller shop supervisor, Refills 0, Maintenance, 03/30/24 1:54:00 PM [...] Refills, Maintenance, 11/03/23 10:45:00 AM EDT, [facility], 161.5, cm, 09/15/23 14:00:00 [...] Refills, Maintenance, 04/12/21 4:16:00 PM EDT, Capsule, [id number], Partial fill upon patient request if the [...] AM EST, Route to Pharmacy Electronically, [facility], Partial fill upon patient request [...] Refills, Maintenance, 07/26/24 6:06:00 PM EST, Tablet, [facility], Partial fill upon patient request [...] PM EDT, Tablet, [facility], Partial fill upon patientrequest if [...] Refills, Maintenance, 12/16/23 4:27:00 PM EDT, Powder, [facility] #[id number], Partial fill upon patient request if the prescription is for a schedule II opioid drug., 161.5, cm, 12/16/23 15:56:00 EDT, Height, 87.7, kg, 12/16/23 15:56:00 EDT, Dry Weight Start Date: 12/16/23 Status: Ordered Quantity: 30.0 Unit: each Repeat number: 2 Vitamin D 68571 iu oral capsule 50,000 International_Units, By Mouth, [...] team information Care Team Personnel Name: Marie Triindad RN Position: [facility] RN Member Role: Primary Care Nurse Name: Jackeline Salgado Position: [facility] Outreach Member Role: Lifetime Consulting Physician Name: Maday Gonzalez RN Position: [facility] relief salesperson Member Role: Child Nurse Name: Prince Manning MD Position: [facility] Physician - Primary Care Member Role: PCP Address: [address] [place] [address] Adult & Pediatric Medicine [address] Telecom: Name: Tiera Recinos RN Position: [facility] RN Member Role: Primary Care Nurse [...]
--- OUTSIDE RECORDS SUMMARY | 2024-08-16 10:36 | XMS_ITS | Clinical Summary ---
Author Organization [address] Address [address] [place] [address] Phone Care Team Providers Care It Infrastructure Engineer Name Role Phone Alfred Solitario MD Primary Care Provider [phone] Surgical History Surgery Date Site/Laterality Comments CORONARY [...] 06/23/2018 DX:Type 2 diabetes mellitus with cataract ([facility]) Type 2 diabetes mellitus wit h peripheral vascular disease ([facility]) 10/29/2016 DX:Type 2 diabet es mellitus with peripheral vascular disease ([facility]) Erectile dysfunction 05/06/2019 DX:Erectile dysfunction GERD (gastroesophageal [...] heart failure (CMS/HCC) from Last 3 Months or Most Recently Relevant to Health Maintenance Results * (ABNORMAL) Comprehensive metabolic panel (05/10/2024 5:29 AM EST) Sodium 133 133 - 145 mmol/L LAB CHEMISTRY METHOD 05/10/2024 10:38 AM EST [facility] Potassium 4.5 3.5 - 5.5 mmol/L LAB CHEMISTRY METHOD 05/10/2024 10:38 AM EST [facility] Chloride 97 96 - 110 mmol/L LAB CHEMISTRY METHOD 05/10/2024 10:38 AM EST [facility] CO2 27 21 - 32 mmol/L LAB CHEMISTRY METHOD 05/10/2024 10:38 AM EST [facility] Anion Gap 9 3 - 11 LAB CHEMISTRY METHOD 05/10/2024 10:38 AM EST [facility] Glucose 122(H) 70 - 100 [...] 10:[address] [facility] Total Protein 5.4(L) [...] 5:29 AM EST 05/10/2024 9:43 AM EST Alfrde Solitario MD LAB BLOOD ORDERABLES Final Resu lt [facility] H[facility] LAB [address] [place] [address], from Last 3 Months or Most Recently Relevant to Health Maintenance Insurance MEDICARE Care Teams It Infrastructure Engineer Relationship Specialty Start Date End Date Alfred Solitario MD [address] [place] [address] PCP - General Internal Medicine 05/02/24
--- OUTSIDE RECORDS SUMMARY | 2024-08-16 10:36 | XMS_ITS | Encounter Summary ---
Author Organization [facility] Address [address] [place] [address] Care Team Providers Care Neuropsychiatric Aide Name Role Phone Alfred Solitario MD Primary Care Provider [phone] Encounter Details Date Type Department Care Team (Late st Contact Info) Description 05/05/2024 Lab Requisition [facility] - Main Lab [address] [facility] [place] [address] Alfred Solitario MD [address] [place] [address] Unspecified atrial fibrillation (CMS/HCC) Social History [...] LAB CHEMISTRY METHOD 05/06/2024 11:36 AM EST [facility] Potassium 4.9 3.5 - 5.5 mmol/L LAB CHEMISTRY METHOD 05/06/2024 11:36 AM [facility] Chloride 94(L) 96 - 110 mmol/L LAB CHEMISTRY METHOD 05/06/2024 11:36 AM [facility] CO2 28 21 - 32 mmol/L LAB CHEMISTRY METHOD 05/06/2024 11:36 AM [facility] Anion Gap 9 3 - 11 LAB CHEMISTRY METHOD 05/06/2024 11:36 AM [facility] Glucose 105(H) 70 - 100 mg/dL LAB CHEMISTRY METHOD 05/06/2024 11:36 AM [facility] BUN 93(H) 5 - 25 mg/dL LAB CHEMISTRY METHOD 05/06/2024 11:36 AM [facility] Creatinine 1.68(H) 0.70 - 1.30 mg/dL LAB CHEMISTRY METHOD 05/06/2024 11:36 AM [facility] eGFR 41(L) >=60 mL/min/1. 73m2 LAB CHEMISTRY METHOD 05/06/2024 11:36 AM [facility] Comment:Calculation based on the??Chronic Kidney Disease Epidemiology Collaboration (CKD-EPI) equation refit??without adjustment for race. BUN/Creatinine Ratio 55.4 LAB CHEMISTRY METHOD 05/06/2024 11:36 AM [facility] Calcium 8.7 8.5 - 10.5 mg/dL LAB CHEMISTRY METHOD 05/06/2024 11:36 AM [facility] Blood Venous blood specimen / Unknown Venipuncture / Unknown 05/06/2024 5:46 AM EST 05/06/2024 10:49 AM EST us Alfred Solitario MD LAB BLOOD ORDERABLES Final Resu lt [facility] [address] [place] [address], [place] [phone] * (ABNORMAL) Complete blood count (05/06/2024 5:46 AM EST) [facility] WBC 8.8 4.8 - 10.8 K/mcL LAB HEMETOLOGY METHOD 05/06/2024 11:17 AM [facility] RBC 3.00(L) 4.50 - 5.50 M/mcL LAB HEMETOLOGY METHOD 05/06/2024 11:17 AM [facility] Hemoglobin 8.7(L) 13.5 - 17.5 g/dL LAB HEMETOLOGY METHOD 05/06/2024 11:17 AM [facility] Hematocrit 27.9(L) 42.0 - 54.0 % LAB HEMETOLOGY METHOD 05/06/2024 11:17 AM [facility] MCV 93.3 79.0 - 98.0 FL LAB HEMETOLOGY METHOD 05/06/2024 11:17 AM [facility] MCH 29.1 27.0 - 32.0 pcg LAB HEMETOLOGY METHOD 05/06/2024 11:17 AM [facility] MCHC 31.2(L) 32.0 - 37.0 g/dL LAB HEMETOLOGY METHOD 05/06/2024 11:17 AM [facility] RDW 23.5(H) 11.0 - 15.0 % LAB HEMETOLOGY METHOD 05/06/2024 11:17 AM [facility] Platelets 310 130 - 400 K/mcL LAB HEMETOLOGY METHOD 05/06/2024 11:17 AM [facility] MPV 10.8 7.0 - 11.0 FL LAB HEMETOLOGY METHOD 05/06/2024 11:17 AM [facility] NRBC 0.0 <1.0 % LAB HEMETOLOGY METHOD 05/06/2024 11:17 AM [facility] NRBC Absolute 0.00 <0.10 K/mcL LAB HEMETOLOGY METHOD 05/06/2024 11:17 AM EST [facility] Blood Venous blood specimen / Unknown Venipuncture / Unknown 05/06/2024 5:46 AM EST 05/06/2024 10:49 AM EST us Alfred Solitario MD LAB BLOOD ORDERABLES Final Resu lt [facility] [address] [place] [address], documented in this encounter Visit Diagnoses Diagnosis Unspecified atrial fibrillation (CMS/HCC) documented in this encounter Care Teams Neuropsychiatric Aide Relationship Specialty Start Date End Date Alfred Solitario MD [address] [place] [address] PCP - General Internal Medicine 05/02/24 documented as of this encounter
--- OUTSIDE RECORDS SUMMARY | 2024-08-16 10:36 | XMS_ITS | Encounter Summary ---
Author Organization [facility] Address [address] [place] [address] Care Team Providers Care Hospital Medical Biller Name Role Phone Alfred Solitario MD Primary Care Provider [phone] Encounter Details Date Type Department Care Team (Late st Contact Info) Description 05/02/2024 Lab Requisition [facility] [place] [facility] - Main Lab [address] [facility] [place] [address] Alfred Solitario MD [address] [place] [address] Acute on chronic systolic (congestive) [...] mmol/L LAB CHEMISTRY METHOD 05/02/2024 8:30 AM [facility] Potassium 3.9 3.5 - 5.5 mmol/L LAB CHEMISTRY METHOD 05/02/2024 8:30 AM [facility] Chloride 82(L) 96 - 110 mmol/L LAB CHEMISTRY METHOD 05/02/2024 8:30 AM [facility] CO2 32 21 - 32 mmol/L LAB CHEMISTRY METHOD 05/02/2024 8:30 AM [facility] Anion Gap 11 3 - 11 LAB CHEMISTRY METHOD 05/02/2024 8:30 AM [facility] Glucose 107(H) 70 - 100 mg/dL LAB CHEMISTRY METHOD 05/02/2024 8:30 AM [facility] BUN 106(H) 5 - 25 mg/dL LAB CHEMISTRY METHOD 05/02/2024 8:30 AM [facility] Creatinine 2.16(H) 0.70 - 1.30 mg/dL LAB CHEMISTRY METHOD 05/02/2024 8:30 AM [facility] eGFR 30(L) >=60 mL/min/1. 73m2 LAB CHEMISTRY METHOD 05/02/2024 8:30 AM [facility] Comment:Calculation based on the??Chronic Kidney Disease Epidemiology Collaboration (CKD-EPI) equation refit??without adjustment for race. BUN/Creatinine Ratio 49.1 LAB CHEMISTRY METHOD 05/02/2024 8:30 AM [facility] Calcium 8.4(L) 8.5 - 10.5 mg/dL LAB CHEMISTRY METHOD 05/02/2024 8:30 AM [facility] AST (SGOT) 37 10 - 42 unit/L LAB CHEMISTRY METHOD 05/02/2024 8:30 AM [facility] ALT (SGPT) 24 10 - 60 unit/L LAB CHEMISTRY METHOD 05/02/2024 8:30 AM [facility] Alkaline Phosphatase 144(H) 42 - 121 unit/L LAB CHEMISTRY METHOD 05/02/2024 8:30 AM [facility] Total Protein 5.5(L) 6.0 - 8.0 g/dL LAB CHEMISTRY METHOD 05/02/2024 8:30 AM [facility] Albumin 3.3 3.2 - 5.0 g/dL LAB CHEMISTRY METHOD 05/02/2024 8:30 AM [facility] Total Bilirubin 0.7 0.0 - 1.4 mg/dL LAB CHEMISTRY METHOD 05/02/2024 8:30 AM [facility] Blood Venous blood specimen / Unknown Venipuncture / Unknown 05/02/2024 7:02 AM EST 05/02/2024 7:44 AM EST us Alfred Solitario MD LAB BLOOD ORDERABLES Final Resu lt [facility] [address] [place] [address], [place] [phone] * (ABNORMAL) Complete blood count (05/02/2024 7:02 AM EST) WBC 9.6 4.8 - 10.8 K/mcL LAB HEMETOLOGY METHOD 05/02/2024 8:04 AM [facility] RBC 3.00(L) 4.50 - 5.50 M/mcL LAB HEMETOLOGY METHOD 05/02/2024 8:04 AM [facility] Hemoglobin 8.6(L) 13.5 - 17.5 g/dL LAB HEMETOLOGY METHOD 05/02/2024 8:04 AM [facility] Hematocrit 26.9(L) 42.0 - 54.0 % LAB HEMETOLOGY METHOD 05/02/2024 8:04 AM [facility] MCV 89.4 79.0 - 98.0 FL LAB HEMETOLOGY METHOD 05/02/2024 8:04 AM EST [facility] MCH 28.6 27.0 - 32.0 pcg LAB HEMETOLOGY METHOD 05/02/2024 8:04 AM [facility] MCHC 32.0 32.0 - 37.0 g/dL LAB HEMETOLOGY METHOD 05/02/2024 8:04 AM [facility] RDW 23.0(H) 11.0 - 15.0 % LAB HEMETOLOGY METHOD 05/02/2024 8:04 AM [facility] Platelets 304 130 - 400 K/mcL LAB HEMETOLOGY METHOD 05/02/2024 8:04 AM [facility] MPV 10.4 7.0 - 11.0 FL LAB HEMETOLOGY METHOD 05/02/2024 8:04 AM [facility] NRBC 0.0 <1.0 % LAB HEMETOLOGY METHOD 05/02/2024 8:04 AM [facility] NRBC Absolute 0.00 <0.10 K/mcL LAB HEMETOLOGY METHOD 05/02/2024 8:04 AM [facility] Blood Venous blood specimen / Unknown Venipuncture / Unknown 05/02/2024 7:02 AM EST 05/02/2024 7:44 AM EST us Alfred Solitario MD LAB BLOOD ORDERABLES Final Resu lt [facility] [address] [place] [address], documented in this encounter Visit Diagnoses Diagnosis Acute on chronic systolic (congestive) heart failure (CMS/HCC) documented in this encounter Care Teams Hospital Medical Biller Relationship Specialty Start Date End Date Alfred Solitario MD [address] [place] [address] PCP - General Internal Medicine 05/02/24 documented as of this encounter
--- OUTSIDE RECORDS SUMMARY | 2024-08-16 10:36 | XMS_ITS | Continuity of Care Document ---
Author Organization [facility] Address [address] [place] [address]- Care Team Providers Care Mechanical Engineering Manager Name Role Phone Kerri GUILLAUME, Prince Nunez Primary Care Physician [phone] Encounter [facility] Date(s): 07/08/24 - 08/07/24 [facility] [address] [place], [place] [address] Encounter Type: Triage Allergies, Adverse Reactions, [...] virus vaccine, inactivated 04/09/15 Dom rded SARS-CoV-2(COVID-19)mRNA-LNP vac([id number]) 03/27/23 Recorded tetanus/diphtheria/pertussis, acel(Tdap) 1 10/21/22 Recorded tetanus/diphtheria/pertussis, acel(Tdap) 10/21/22 Recorded [id number] 12y+ bivalent booster vax 03/15/22 Recorded SARS-CoV-2 mRNA ([id number]) vax 09/13/21 Recorded SARS-CoV-2 (COVID-19) mRNA BNT-162b2 [...] Recorded 1Result Comment: Unit: Unknown Route: Intramuscular Radioisotope Technologist: GlaxoSmithKline 2Result Comment: Unit: Unknown Route: Intramuscular Radioisotope Technologist: Sanofi Pasteur 3Result Comment: Unit: Unknown Route: Intramuscular Radioisotope Technologist: Seqirus 4Result Comment: Unit: Unknown Route: Intramuscular Radioisotope Technologist: GlaxoSmithKline 5Result Comment: Unit: Unknown Route: Intramuscular Radioisotope Technologist: GlaxoSmJCDine Medications allopurinol 100 mg oral tablet 1, tablet, By Mouth, Daily, # 90 tablet, Refills 1, Maintenance, 07/15/24 8:45:00 AM EST, [facility], 161.5, cm, 06/07/24 14:50:00 EST, Height, 71.5, kg, 06/07/24 14:50:00 EST, Dry Weight Start Date: 07/15/24 Status: Ordered Quantity: 90.0 Unit: tablet Repeat number: 1 amiodarone 200 mg oral tablet 400 mg, 2, tablet, By Mouth, 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, 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, Refills 0, Maintenance, 03/30/24 1:54:00 PM EDT, [...] 3 Refills, Maintenance, 11/03/23 10:45:00 AM EDT, [facility], 161.5, cm, 09/15/23 [...] Refills, Maintenance, 04/12/21 4:16:00 PM EDT, Capsule, [id number], Partial fill upon patient request if the [...] 9:02:00 AM EST, Route to Pharmacy Electronically, [facility], Partial fill upon patient [...] Refills, Maintenance, 07/26/24 6:06:00 PM EST, Tablet, [facility], Partial fill upon patient [...] Refills, Maintenance, 02/09/24 1:19:00 PM EDT, Tablet, [facility], Partial fill upon patientrequest [...] Refills, Maintenance, 12/16/23 4:27:00 PM EDT, Powder, [facility] #[id number], Partial fill upon patient request if the prescription is for a schedule II opioid drug., 161.5, cm, 12/16/23 15:56:00 EDT, Height, 87.7, kg, 12/16/23 15:56:00 EDT, Dry Weight Start Date: 12/16/23 Status: Ordered Quantity: 30.0 Unit: each Repeat number: 2 Vitamin D 69958 iu oral capsule 50,000 International_Units, By Mouth, [...] Team Personnel Name: Marie Trinidad RN Position: [facility] RN Member Role: Primary Care Nurse Name: Jackeline Salgado Position: [facility] Outreach Member Role: Lifetime Consulting Physician Name: Maday Gonzalez RN Position: [facility] accounts executive Member Role: Crime Lab Analyst Name: Prince Manning MD Position: [facility] Physician - Primary Care Member Role: PCP Address: [address] [place] [address] Adult & Pediatric Medicine [address] Telecom: Name: Tiera Recinos RN Position: [facility] RN Member Role: Primary Care Nurse Care [...]
[2024-08-16 10:41] LABS: Troponin-I High Sensitivity 162.9 ng/L (<3.5-35.0)
--- NOTE | 2024-08-16 14:35 | P.HPHOSP_ITS ---
History of Present Illness Date of Service: 08/16/24 Attending physician on admission: Thomas Buenrostro Chief Complaint: leg swelling this is an 83-year-old male with multiple medical issues including chronic kidney disease, heart failure who presents to the emergency department due to increasing lower extremity swelling as well as reported 20 lb weight gain over the past 2 weeks. Patient was discharged from the hospital on August 03 at that time his Aldactone was discontinued due to hyperkalemia. He reportedly resumed at approximately 1 week ago on his own due to his increasing lower extremity edema. He also reports associated abdominal distention. He denies chest pain, palpitations, dyspnea. Creatinine increased at 1.81, BNP 1832. ultrasound with paracentesis ordered by ED provider, not obtained at this time. Patient will be admitted for further management of fluid overload Review of Systems 2 Review of Systems: Yes all other systems are reviewed and are negative Constitutional: Constitutional: Denies chills and Denies fever(s) Cardiovascular: Cardiovascular: Denies chest pain [facility] Medical History Hyponatremia Iron deficiency anemia Elevated LFTs CKD (chronic kidney disease) LIBRA (acute kidney injury) Ischemic cardiomyopathy History of torsades de pointes Atherosclerotic cardiovascular disease Elevated serum creatinine Biventricular ICD (implantable cardioverter-defibrillator) in place Syncope RBBB PVD (peripheral vascular disease) Hx of thyroid nodule GERD (gastroesophageal reflux disease) CAD (coronary artery disease) BPH (benign prostatic hyperplasia) Asthma Atrial fibrillation Family History Mother Breast cancer Father Heart attack Brother Stomach cancer Brother Heart disease Surgical History Hx of CABG Hx of cardiac cath H/O right knee surgery H/O heart surgery Social History Household Members: None Housing: House Do you presently have visiting nurse or other home services: Yes (PT and visiting nurses) Alcohol intake: former Comment: pt refusing red socks, alarms, and camera Patient Tobacco Use Status: Former Tobacco user Years Smoked: 25 +/- Advance Directives Date on File: 05/17/24 service: No Meds Allergies Allergy/AdvReac Type Severity Reaction Status Date / Time doxycycline Allergy Unknown Unknown Verified 08/16/24 09:25 narcotics AdvReac Nausea and Uncoded 08/16/24 09:25 Vomiting, hypotensive Home Medications ?Medication ?Instructions ?Recorded ?Confirmed ?Last Taken ?Type finasteride 5 mg tablet 5 mg PO DAILY 06/18/21 08/16/24 08/16/24 History pantoprazole 40 mg tablet,delayed 40 mg PO BID@0630,1630 06/18/21 08/16/24 08/16/24 History release allopurinol 100 mg tablet 100 mg PO DAILY 10/27/23 08/16/24 08/16/24 History levothyroxine 88 mcg tablet 88 mcg DAILY@0600 04/12/24 08/16/24 08/16/24 History calcium carbonate 500 mg PO BEDTIME 08/02/24 08/16/24 08/15/24 History cholecalciferol (vitamin D3) 25 25 mcg PO DAILY 08/02/24 08/16/24 08/16/24 History mcg (1,000 unit) tablet (Vitamin D3) magnesium oxide 400 mg PO DAILY@1700 08/02/24 08/16/24 08/15/24 History spironolactone 25 mg tablet 25 mg PO DAILY 08/16/24 08/16/24 08/16/24 History torsemide 20 mg tablet 20 mg PO BEDTIME 08/16/24 08/16/24 08/15/24 History Physical Exam 2 Vital Signs and Narrative: Vital Signs: Last Vital Signs Temp 98.2 F 08/16/24 12:45 Pulse 78 08/16/24 14:28 Resp 16 08/16/24 14:28 BP 114/61 08/16/24 14:28 Pulse Ox 94 08/16/24 14:28 O2 Del Method Room Air 08/16/24 14:28 BMI result Body Mass Index 29.7 Const: General: alert and awake Nutritional Appearance: average body habitus Orientation/consciousness: patient oriented x3 Resp: Effort & Inspection: normal respiratory effort, able to speak in complete sentences, no respiratory distress and no use of accessory muscles A uscultation: clear to auscultation bilaterally GI: Other: +fluid wave; abdomen soft, nontender Neuro: Other: grossly nonfocal General: patient oriented x3 Extrem: Other: 2-3+ pitting edema bilaterally to knee Results Labs 08/16/24 10:07 08/17/24 05:08 Labs: Laboratory Results - last 24 hr 08/16/24 10:07 MCV 96.1 MCH 32.5 MCHC 33.8 RDW 17.8 H Plt Count 268 MPV 10.1 Immature Gran % (Auto) 1.2 H Neut % (Auto) 81.7 H Lymph % (Auto) 7.7 L Williams % (Auto) 7.6 Eos % (Auto) 1.4 Baso % (Auto) 0.4 Lymph # (Auto) 0.8 L Williams # (Auto) 0.8 Eos # (Auto) 0.1 Baso # (Auto) 0.0 Abs Immat Gran (auto) 0.12 H Absolute Neuts (auto) 8.5 H Absolute Nucleated RBC 0.000 Nucleated RBC % (auto) 0.0 PT 30.8 H D INR 2.6 H APTT 40.7 H Anion Gap 16 Estim Creat Clear Calc 30.3 Estimated GFR 36 Random Glucose 118 H Calcium 8.5 Total Bilirubin 1.0 Direct Bilirubin 0.5 AST 36 ALT 20 Alkaline Phosphatase 123 H B-Natriuretic Peptide 1832 H Total Protein 6.2 L Albumin 3.5 Imaging Radiologist's Impressions: Impressions Chest X-Ray 08/16/24 09:28 IMPRESSION: Cardiomegaly. No acute cardiopulmonary abnormality. Electronically signed by: Sebastián Arias MD 08/16/2024 10:05 AM [facility] [place] Assessment and Plan (1) Renal failure, chronic: Qualifiers: Chronic kidney disease stage: unspecified stage Qualified Code(s): N 18.9 - Chronic kidney disease, unspecified Status: Acute (2) Ascites: Qualifiers: Ascites type: other type Qualified Code(s): R18.8 - Other ascites Status: Acute Plan this is an 83-year-old male with a history of cardiac arrest, biventricular ICD, HFrEF, CKD3, paroxysmal atrial fibrillation on Xarelto, CAD, PVD, asthma, GERD, gout, KEVIN on CPAP who presents to the emergency department with increasing lower extremity edema associated with 20 lb weight gain found to have acute kidney injury LIBRA on CKD3 Possible cardiorenal Received IV Lasix in ED planned paracentesis today continue IV diuretics starting in am nephrology consult follow renal function ascites ?cardiac repeat echo therapeutic/diagnostic paracentesis today -follow fluid studies acute on chronic combined systolic and diastolic CHF echo from 2023 with EF of 46% on torsemide 20 bid at baseline bnp elevated near baseline, no fluid on cxr, no respiratory symptoms at this time increasing leg edema diuresis as above hyponatremia Due to above ascites Appears chronic elevated trop chronically elevated no chest pain EKG paced rhythm chronic anemia H/ H at baseline paroxysmal atrial fibrillation continue Xarelto, amiodarone when med rec complete peripheral neuropathy continue gabapentin when med rec complete Hypothyroidism Continue hypothyroidism HLD continue statin KEVIN Continue CPAP DVT prophylaxis - xarelto Code status- DNR/DNI patient will likely require 2 midnight stay for management of fluid overload requiring IV diuretics, specialist evaluation Quality Stroke Does the patient have a stroke diagnosis?: No VTE Prior VTE?: No VTE Risk Level:: Medical - moderate - high VTE Device Contraindication: N/A - Device Ordered VTE Drug Contraindication: N/A - Med Ordered
--- NOTE | 2024-08-16 14:48 | PC.NURSE ---
Per KOREY Salazar, hold IVP Lasix until after paracentesis d/t BP soft.
[2024-08-16] MEDS: Albumin Human 25 % 100 ML 133.33 ML IV ×2 (15:59→17:09)
[2024-08-16] MEDS: Lidocaine HCl 1 % MPF 5 ML VIAL SUBCUT (16:07)
--- NOTE | 2024-08-16 16:56 | PHA.MEDREC ---
Addendum entered by Lindsay Villa RPh 08/16/24 19:14: reviewed by [facility], clarified - pt not taking metoprolol or iron supp. Original Note: Pharmacy Consult ? Medication Reconciliation Pharmacy has completed the medication reconciliation. Spoke with patient to confirm medications and he was able to verbally confirm them all with me. He states he is still taking the Pantoprazole 40mg tab twice a day and states he is getting them through mail-order at [facility]. He confirmed he took all his morning medications as well as the Xarelto and Amioderone today before coming in.
[2024-08-16] MEDS: Rivaroxaban 15 MG TABLET PO (18:50)
[2024-08-16] MEDS: Melatonin 3 MG TABLET 6 MG PO (22:02)
[2024-08-16] MEDS: Atorvastatin Calcium 40 MG TABLET PO (22:02)
[2024-08-16] MEDS: Gabapentin 600 MG TABLET PO (22:02)
[2024-08-17] VITALS (10 sets, daily range): BP systolic 93–114; BP diastolic 44–62; PULSE 60–79; RESP 14–19; TEMP 35.9–36.5; O2SAT 94–100
[2024-08-17 05:49] LABS: Anion Gap 16 (12-20); Blood Urea Nitrogen 75 mg/dL (9-16); Calcium 8.7 mg/dL (8.4-10.2); Carbon Dioxide 22 mmol/L (22-29); Chloride 97 mmol/L (96-108); Creatinine Clr Calc Pharmacy 35.6; Estimated Glomerular Filt Rate 44; Glucose Random 123 mg/dL (60-115); Potassium 4.3 mmol/L (3.3-5.1); Sodium 131 mmol/L (135-145)
[2024-08-17] MEDS: Omeprazole 20 MG CAPSULE.DR PO ×2 (06:03→15:39)
[2024-08-17] MEDS: Levothyroxine Sodium 88 MCG TABLET PO (06:03)
--- NOTE | 2024-08-17 07:00 | CA_ITS ---
Transthoracic Echocardiogram Patient (Last, First, Middle): Sherman Hurtado P Gender: Male Date of : 1940 Age: 83 Procedure Date: 08/17/2024 Procedure Type: Transthoracic Echocardiogram Location: ER Height: 162.56 cm Weight: 78.47 kg BSA: 1.84 m2 Heart Rate: 60 bpm BP: 114 / 61 mmHg Capacitor Inspector: Referring MD: Marie NAIR Manager Performance: Wolfgang Watson MD Symptoms: fluid overload Study Quality: Adequate ECG Rhythm: Possibly Ventriculary paced rhythm Conclusions: - 1. Low normal LV ejection fraction 50-55% with restrictive filling pattern 2. Severely dilated left atrium 3. Yfuj-sh-xztqvmvn aortic stenosis 4. Qcpx-ry-izzxuxle mitral regurgitation 5. Ghok-nd-wftrqivp elevation of right ventricular systolic pressure with significantly elevated right atrial pressures 6. No gross pericardial effusion Findings Left Ventricle Normal left ventricular cavity size. There is normal left ventricular wall thickness. The left ventricular systolic function is low normal. The visually estimated ejection fraction is between 50-55%. Spectral Doppler is indicative of a restrictive filling pattern. Wall Motion Rest Echo Findings The basal anteroseptal segment is hypokinetic. The basal inferior, apical septum, mid inferoseptal, and mid anteroseptal segments are akinetic. All other scored wall segments showed normal motion. Right Ventricle Normal right ventricular cavity size. There is an ICD wire seen in the right ventricle. Atria The left atrium is severely dilated. There is no evidence of interatrial shunt. The right atrium is mildly dilated. A pacemaker wire is identified in the right atrium. Aortic Valve There is mild calcification of the aortic valve. There is moderate thickening of the aortic valve. There is mild to moderate aortic valve stenosis. The mean gradient is 9 mmHg. The aortic valve area is 1.32 cm2. There is mild aortic valve regurgitation. Mitral Valve There is mild anterior and moderate posterior mitral leaflet thickening. The posterior mitral leaflet has restricted mobility. There is mild posterior mitral annular calcification. There is mild mitral annular calcification. There is mild to moderate mitral valve regurgitation. Pulmonic Valve The pulmonic valve was not well visualized. Tricuspid Valve There is mild to moderate tricuspid valve regurgitation. Significantly elevated right atrial pressure. Mild to moderate pulmonary hypertension is present. Great Vessels The aorta was not well visualized. The pulmonary artery was not well visualized. Venous The inferior vena cava is moderately dilated and does not collapse with inspiration. Pericardium/Pleural There is no evidence of pericardial effusion. Prior Study Comparison Changes noted compared to prior study dated: 04/21/2024. RV systolic pressure is increased. Right atrial pressures are increased Measurements 2D Linear Measurements IVSd: 1.03 0.6-0.9/0.6-1.0 cm LVIDd: 5.33 3.9-5.3/4.2-5.9 cm LVIDd Index: 2.90 2.4-3.2/2.2-3.1 cm/m2 LVIDs: 4.01 2.0-3.6 cm LVPWd: 1.07 0.7-1.1 cm Ao Root: 3.00 2.1-3.5 cm LA Diam: 5.00 2.7-3.8/3.0-4.0 cm LAIDs Index: 2.72 1.5-2.3 cm/m2 LV Mass: 269.10 67-162/88-224 g LV Mass Index: 146.25 43-95/49-115 g/m2 LVOT Diam: 2.00 3.0+(-)1.3 cm 2D Systolic Function EF 4C: 45.10 >55% EF 2C: 54.60 >55% EF BiP: 50.20 >55% Mitral Valve MV Pk E: 0.84 MV Decel Time: 302.00 E'Lateral: 5.87 E'Medial: 3.81 E/E' Med: 22.00 E/E' Lat: 14.30 PHT: 89.00 MVA PHT: 2.47 Decel Reagan: 2.78 Aortic Valve AoV Pk Thaddeus: 2.02 AoV Mn Thaddeus: 1.38 AoV VTI: 0.44 AoV Pk Grad: 16.00 Aov Mn Grad: 9.00 ARIANNA Cont.VTI: 1.32 AI Pk Thaddeus: 2.90 AI Reagan: 2.10 LVOT LVOT Pk Thaddeus: 1.23 LVOT Mn Thaddeus: 0.54 LVOT VTI: 0.19 LVOT Pk Grad: 6.00 LVOT Mn Grad: 1.00 LVOT Diam: 2.00 LVOT Area: 3.14 Diastolic Function MV Pk E: 0.84 E'Medial: 3.81 E/E' Med: 22.00 E' Laterial: 5.87 E/E' Lat: 14.30 Tricuspid Valve TR Pk Thaddeus: 3.02 TR Pk Grad: 36.00 RA Press: 15.00 RVSP: 51.00 Great Vessels Aorta Ao Root-2D: 3.00 2.0-3.7 cm Pulmonary Valve PV Pk Thaddeus: 0.71 Peak PV Grad: 2.00 Updated in Other Vendor System with Status of Final Wolfgang Watson MD electronically signed on 08/17/2024 11:46:40 AM with status of Final
[2024-08-17] MEDS: Acetaminophen 325 MG TABLET 650 MG PO ×2 (07:59→15:39)
[2024-08-17] MEDS: Cholecalciferol (Vitamin D3) 25 MCG TABLET PO (07:59)
[2024-08-17] MEDS: Spironolactone 25 MG TABLET PO (07:59)
[2024-08-17] MEDS: Furosemide 20 MG/2 ML VIAL IVPUSH ×2 (07:59→18:03)
[2024-08-17] MEDS: 0.9 % Sodium Chloride Flush 3 ML SYRINGE IVFLUSH ×3 (08:00→21:33)
[2024-08-17] MEDS: Albumin Human 25 % 100 ML IV ×2 (09:50→15:31)
[2024-08-17] MEDS: Finasteride 5 MG TABLET PO (09:50)
--- NOTE | 2024-08-17 10:49 | MHC.CM.PN ---
IMM 08/17/24, EMR REVIEWED, PT W/FLUID OVERLOAD/LIBRA, CM MET W/PT WHO REPORTS HE LIVES ALONE, AMBULATES INDEP W/WALKER AND DOES OWN ADLS/SHOWERS, PT REPORTS HE HAS A CPAP, WALKER, SHOWER CHAIR AND IS HAVING A WALK IN SHOWER INSTALLED, PT ALSO REPORTS GRAB BARS WHEREVER THERE ARE STEPS AND NOW HAS A BAR ON HIS BED, PT REPORTS HIS CURRENT GOAL IS TO RETURN HOME W/[employer] SERVICES. PT VERIFIES PCP IS BETH TURNER AND HCP ON FILE.
--- NOTE | 2024-08-17 13:09 | PM.CNNEP ---
History of Present Illness Reason for Consult Consult date: 08/17/24 Reason for consult: CKD Chief Complaint Chief complaint: Fluid overload, LIBRA History of Present Illness Narrative: 83-year-old male with multiple medical issues including chronic kidney disease, heart failure who presents to the emergency department due to increasing lower extremity swelling as well as reported 20 lb weight gain over the past 2 weeks. Patient was discharged from the hospital on August 03 at that time his Aldactone was discontinued due to hyperkalemia. He reportedly resumed at approximately 1 week ago on his own due to his increasing lower extremity edema. He also reports associated abdominal distention. He denies chest pain, palpitations, dyspnea. Creatinine increased at 1.81, BNP 1832. ultrasound with paracentesis PMFSH Past Medical History Medical History Hyponatremia Iron deficiency anemia Elevated LFTs CKD (chronic kidney disease) LIBRA (acute kidney injury) Ischemic cardiomyopathy History of torsades de pointes Atherosclerotic cardiovascular disease Elevated serum creatinine Biventricular ICD (implantable cardioverter-defibrillator) in place Syncope RBBB PVD (peripheral vascular disease) Hx of thyroid nodule GERD (gastroesophageal reflux disease) CAD (coronary artery disease) BPH (benign prostatic hyperplasia) Asthma Atrial fibrillation Family History Family History Mother Breast cancer Father Heart attack Brother Stomach cancer Brother Heart disease Surgical History Surgical History Hx of CABG Hx of cardiac cath H/O right knee surgery H/O heart surgery Social History Social History Household Members: None Housing: House Do you presently have visiting nurse or other home services: Yes (PT and visiting nurses) Alcohol intake: former Comment: pt refusing red socks, alarms, and camera Patient Tobacco Use Status: Former Tobacco user Years Smoked: 25 +/- Advance Directives Date on File: 10/31/23 service: No Meds Allergies Allergy/AdvReac Type Severity Reaction Status Date / Time doxycycline Allergy Unknown Unknown Verified 08/16/24 09:25 narcotics AdvReac Nausea and Uncoded 08/16/24 09:25 Vomiting, hypotensive Active Medications: Current Medications Acetaminophen (Acetaminophen 325 Mg Tablet) 650 mg PO Q6H PRN PRN Reason: Pain, Mild 1-3,fever,headache Last Admin: 08/17/24 07:59 Dose: 650 mg Amiodarone HCl (Amiodarone Hcl 200 Mg Tablet) 200 mg PO DAILY@1700 [facility] Atorvastatin Calcium (Atorvastatin Calcium 40 Mg Tablet) 40 mg PO BEDTIME [facility] Last Admin: 08/16/24 22:02 Dose: 40 mg Calcium Carbonate (Calcium Carbonate 750 Mg Tab.Chew) 750 mg PO Q4H PRN PRN Reason: Heartburn Finasteride (Finasteride 5 Mg Tablet) 5 mg PO DAILY [facility] Last Admin: 08/17/24 09:50 Dose: 5 mg Furosemide (Furosemide 20 Mg/2 Ml Vial) 20 mg IVPUSH BID@0900,1800 [facility]; Protocol Last Admin: 08/17/24 07:59 Dose: 20 mg Gabapentin (Gabapentin 600 Mg Tablet) 600 mg PO BEDTIME [facility] Last Admin: 08/16/24 22:02 Dose: 600 mg Albumin Human (Kedbumin 25 %) 100 mls @ 100 mls/hr IV Q6H [facility] Stop: 08/17/24 16:29 Last Infusion: 08/17/24 11:03 Dose: Infused Levothyroxine Sodium (Levothyroxine Sodium 88 Mcg Tablet) 88 mcg PO DAILY@0600 [facility] Last Admin: 08/17/24 06:03 Dose: 88 mcg Magnesium Hydroxide (Milk Of Magnesia 30 Ml Oral.Susp) 30 ml PO DAILY PRN PRN Reason: Constipation Magnesium Oxide (Magnesium Oxide 400 Mg Tablet) 400 mg PO DAILY@1700 [facility] Melatonin (Melatonin 3 Mg Tablet) 6 mg PO BEDTIME PRN PRN Reason: Insomnia Last Admin: 08/16/24 22:02 Dose: 6 mg Omeprazole (Omeprazole 20 Mg Capsule.Dr) 20 mg PO BID@0630,1630 [facility] Last Admin: 08/17/24 06:03 Dose: 20 mg Rivaroxaban (Rivaroxaban 15 Mg Tablet) 15 mg PO DAILY@1700 [facility] Last Admin: 08/16/24 18:50 Dose: 15 mg Sodium Chloride (0.9 % Sodium Chloride Flush 3 Ml Syringe) 3 ml IVFLUSH QSHIFT [facility] Last Admin: 08/17/24 08:00 Dose: 3 ml Spironolactone (Spironolactone 25 Mg Tablet) 25 mg PO DAILY [facility]; Protocol Last Admin: 08/17/24 07:59 Dose: 25 mg Vitamin D (Cholecalciferol (Vitamin D3) 25 Mcg Tablet) 25 mcg PO DAILY [facility] Last Admin: 08/17/24 07:59 Dose: 25 mcg Home Medications ?Medication ?Instructions ?Recorded ?Confirmed ?Last Taken ?Type finasteride 5 mg tablet 5 mg PO DAILY 06/18/21 08/16/24 08/16/24 History pantoprazole 40 mg tablet,delayed 40 mg PO BID@0630,1630 06/18/21 08/16/24 08/16/24 History release allopurinol 100 mg tablet 100 mg PO DAILY 10/27/23 08/16/24 08/16/24 History levothyroxine 88 mcg tablet 88 mcg DAILY@0600 04/12/24 08/16/24 08/16/24 History calcium carbonate 500 mg PO BEDTIME 08/02/24 08/16/24 08/15/24 History cholecalciferol (vitamin D3) 25 25 mcg PO DAILY 08/02/24 08/16/24 08/16/24 History mcg (1,000 unit) tablet (Vitamin D3) magnesium oxide 400 mg PO DAILY@1700 08/02/24 08/16/24 08/15/24 History spironolactone 25 mg tablet 25 mg PO DAILY 08/16/24 08/16/24 08/16/24 History torsemide 20 mg tablet 20 mg PO BEDTIME 08/16/24 08/16/24 08/15/24 History Physical Exam Vital Signs: Last Vital Signs Temp 97.5 F 08/17/24 12:00 Pulse 60 08/17/24 12:00 Resp 18 08/17/24 12:00 BP 114/62 08/17/24 12:00 Pulse Ox 97 08/17/24 12:00 O2 Del Method Room Air 08/17/24 12:00 BMI result Body Mass Index 29.7 Awake. Comfortable. Neck is supple. Mucosa moist. Lungs bilateral scattered rhonchi. Heart S1-S2 heard no gallop. Abdomen soft. Extremities no edema. No involuntary movements. No myoclonus. Results Lab Results 08/16/24 10:07 08/17/24 05:08 Lab results: Chemistry 08/16/24 08/17/24 10:07 05:08 Sodium 131 L 131 L Potassium 4.4 D 4.3 Carbon Dioxide 23 22 BUN 80 H 75 H Creatinine 1.81 H 1.54 H Calcium 8.5 8.7 Hematology 08/16/24 10:07 WBC 10.3 Hgb 9.2 L Plt Count 268 Assessment and Plan (1) Renal failure, chronic: Qualifiers: Chronic kidney disease stage: unspecified stage Qualified Code(s): N18.9 - Chronic kidney disease, unspecified Status: Acute Plan LIBRA superimposed on CKD. LIBRA due to hypoperfusion. Anemia Mild hyponatremia. Chronic. Recommendations. Keep output more than intake. Agree with loop red diuretics like torsemide or furosemide. Agree with paracentesis. Renal function is marginally better. Restrict hypotonic fluids to correct hyponatremia. Concur with other medical management and she will follow along with the team Procedures Date of Service Date of Service: 08/17/24
--- NOTE | 2024-08-17 13:17 | HO.PM.IMPN ---
Subjective Subjective Date of Service: 08/17/24 Interval History: libra on ckd3 Review of Systems sob seems somewhat improving denies any chest pain Physical Exam Vital Signs: Vital Signs: Last Vital Signs Temp 97.5 F 08/17/24 12:00 Pulse 60 08/17/24 12:00 Resp 18 08/17/24 12:00 BP 114/62 08/17/24 12:00 Pulse Ox 97 08/17/24 12:00 O2 Del Method Room Air 08/17/24 12:00 BMI result Body Mass Index 29.7 Appearance: Alert.? Oriented X3.sob cvs: rrr, [id number] . res: clear to auscultation ,no rhonchii or wheezing abd: no rebound or guarding ,nt, bs present. ext pulses present , no cyanosis . neuro: axo3 , nonfocal. Objective Data Active Medications Acetaminophen (Acetaminophen 325 Mg Tablet) 650 mg PO Q6H PRN PRN Reason: Pain, Mild 1-3,fever,headache Last Admin: 08/17/24 07:59 Dose: 650 mg Documented By: CHRIS Amiodarone HCl (Amiodarone Hcl 200 Mg Tablet) 200 mg PO DAILY@1700 [facility] Atorvastatin Calcium (Atorvastatin Calcium 40 Mg Tablet) 40 mg PO BEDTIME [facility] Last Admin: 08/16/24 22:02 Dose: 40 mg Documented By: KEMI Calcium Carbonate (Calcium Carbonate 750 Mg Tab.Chew) 750 mg PO Q4H PRN PRN Reason: Heartburn Finasteride (Finasteride 5 Mg Tablet) 5 mg PO DAILY [facility] Last Admin: 08/17/24 09:50 Dose: 5 mg Documented By: JASON Furosemide (Furosemide 20 Mg/2 Ml Vial) 20 mg IVPUSH BID@0900,1800 [facility]; Protocol Last Admin: 08/17/24 07:59 Dose: 20 mg Documented By: CHRIS Gabapentin (Gabapentin 600 Mg Tablet) 600 mg PO BEDTIME [facility] Last Admin: 08/16/24 22:02 Dose: 600 mg Documented By: KEMI Albumin Human (Kedbumin 25 %) 100 mls @ 100 mls/hr IV Q6H [facility] Stop: 08/17/24 16:29 Last Infusion: 08/17/24 11:03 Dose: Infused Documented By: HO.WILLIAC Levothyroxine Sodium (Levothyroxine Sodium 88 Mcg Tablet) 88 mcg PO DAILY@0600 [facility] Last Admin: 08/17/24 06:03 Dose: 88 mcg Documented By: KEMI Magnesium Hydroxide (Milk Of Magnesia 30 Ml Oral.Susp) 30 ml PO DAILY PRN PRN Reason: Constipation Magnesium Oxide (Magnesium Oxide 400 Mg Tablet) 400 mg PO DAILY@1700 [facility] Melatonin (Melatonin 3 Mg Tablet) 6 mg PO BEDTIME PRN PRN Reason: Insomnia Last Admin: 08/16/24 22:02 Dose: 6 mg Documented By: KEMI Omeprazole (Omeprazole 20 Mg Capsule.) 20 mg PO BID@0630,1630 [facility] Last Admin: 08/17/24 06:03 Dose: 20 mg Documented By: KEMI Rivaroxaban (Rivaroxaban 15 Mg Tablet) 15 mg PO DAILY@1700 [facility] Last Admin: 08/16/24 18:50 Dose: 15 mg Documented By: JESUS Sodium Chloride (0.9 % Sodium Chloride Flush 3 Ml Syringe) [address] [facility] Last Admin: 08/17/24 08:00 Dose: 3 ml Documented By: CHRIS Spironolactone (Spironolactone 25 Mg Tablet) 25 mg PO DAILY [facility]; Protocol Last Admin: 08/17/24 07:59 Dose: 25 mg Documented By: CHRIS Vitamin D (Cholecalciferol (Vitamin D3) 25 Mcg Tablet) 25 mcg PO DAILY [facility] Last Admin: 08/17/24 07:59 Dose: 25 mcg Documented By: CHRIS Labs 08/16/24 10:07 08/17/24 05:08 Labs: Laboratory Results - last 24 hr 08/17/24 05:08 Anion Gap 16 Estim Creat Clear Calc 35.6 Estimated GFR 44 Random Glucose 123 H Calcium 8.7 Assessment and Plan (1) Anasarca: Status: Acute (2) Ascites: Status: Acute (3) Renal failure, chronic: Status: Acute Assessment and Plan: 83-year-old male with a history of cardiac arrest, biventricular ICD, HFrEF, CKD3, paroxysmal atrial fibrillation on Xarelto, CAD, PVD, asthma, GERD, gout, KEVIN on CPAP who presents to the emergency department with increasing lower extremity edema associated with 20 lb weight gain found to have acute kidney injury LIBRA on CKD3 cr seems slightly improving 1.54 Possible cardiorenal Received IV Lasix in ED paracentesis : 3 liter fluid resmoved -seems less likely sbp continue IV diuretics ,nephrology consult,moniter bmp. ascites-unclear etiology ?cardiac. recent ua (08/11) -negative ,lft seemsfine repeat echo therapeutic/diagnostic paracentesis today -follow fluid studies-seems less likely sbp. acute on chronic combined systolic and diastolic CHF echo from 2023 with EF of 46% on torsemide 20 bid at baseline troponin elevated chronically,no chest pain ,EKG paced rhythm bnp elevated near baseline, no fluid on cxr, no respiratory symptoms at this time chronic hyponatremia : sodium seems similar range 131. Due to above ascites Appears chronic chronic anemia H/ H at baseline paroxysmal atrial fibrillation continue Xarelto, amiodarone. peripheral neuropathy : continue gabapentin . Hypothyroidism: Continue hypothyroidism HLD:continue statin KEVIN :Continue CPAP DVT prophylaxis - xarelto need for stay: management of fluid overload requiring IV diuretics, renal function/electrolytes,moniter repiratory status , i/o, nephrology eval. Quality Stroke Does the patient have a stroke diagnosis?: No VTE Prior VTE?: No VTE Risk Level:: Medical - moderate - high VTE Device Contraindication: N/A - Device Ordered VTE Drug Contraindication: N/A - Med Ordered
[2024-08-17] MEDS: Amiodarone HCL 200 MG TABLET PO (16:33)
[2024-08-17] MEDS: Magnesium Oxide 400 MG TABLET PO (16:33)
[2024-08-17] MEDS: Rivaroxaban 15 MG TABLET PO (16:33)
[2024-08-17] MEDS: Gabapentin 600 MG TABLET PO (21:28)
[2024-08-17] MEDS: Melatonin 3 MG TABLET 6 MG PO (21:28)
[2024-08-17] MEDS: Atorvastatin Calcium 40 MG TABLET PO (21:28)
[2024-08-18] VITALS (7 sets, daily range): BP systolic 95–111; BP diastolic 45–56; PULSE 60–75; RESP 16–20; TEMP 36.2–36.9; O2SAT 95–100; BMI 29.5
[2024-08-18] MEDS: Omeprazole 20 MG CAPSULE.DR PO ×2 (05:47→16:55)
[2024-08-18] MEDS: Levothyroxine Sodium 88 MCG TABLET PO (05:47)
[2024-08-18] MEDS: Cholecalciferol (Vitamin D3) 25 MCG TABLET PO (08:02)
[2024-08-18] MEDS: Furosemide 20 MG/2 ML VIAL IVPUSH ×2 (08:02→16:55)
[2024-08-18] MEDS: Finasteride 5 MG TABLET PO (08:02)
[2024-08-18] MEDS: Spironolactone 25 MG TABLET PO (08:02)
[2024-08-18] MEDS: 0.9 % Sodium Chloride Flush 3 ML SYRINGE IVFLUSH ×2 (08:02→21:04)
[2024-08-18 09:37] LABS: Anion Gap 16 (12-20); Blood Urea Nitrogen 66 mg/dL (9-16); Calcium 8.5 mg/dL (8.4-10.2); Carbon Dioxide 21 mmol/L (22-29); Chloride 99 mmol/L (96-108); Creatinine Clr Calc Pharmacy 38.2; Estimated Glomerular Filt Rate 47; Glucose Random 109 mg/dL (60-115); Potassium 4.6 mmol/L (3.3-5.1); Sodium 131 mmol/L (135-145)
[2024-08-18 09:41] LABS: B Type Natriuretic Peptide 1564 pg/mL (<100)
[2024-08-18] MEDS: Milk of Magnesia 30 ML ORAL.SUSP PO (10:43)
[2024-08-18] MEDS: allopurinoL 100 MG TABLET PO (10:43)
--- NOTE | 2024-08-18 11:35 | MHC.CM.PN ---
EMR REVIEWED, PT W/FLUID OVERLOAD/LIBRA, ABDOMINAL ULTRASOUND TODAY, NEPHRO FOLLOWING, GI CONSULT PENDING, NO PLAN FOR DC AT THIS TIME, CM WILL CONT TO FOLLOW DC NEEDS.
[2024-08-18] MEDS: Magnesium Oxide 400 MG TABLET PO (16:55)
[2024-08-18] MEDS: Rivaroxaban 15 MG TABLET PO (16:55)
[2024-08-18] MEDS: Amiodarone HCL 200 MG TABLET PO (16:55)
--- NOTE | 2024-08-18 17:03 | P.PNIM_ITS ---
Subjective Subjective Date of Service: 08/18/24 Interval History: libra on ckd3 possible cardiorenal Review of Systems sob seems somewhat improving but similar as yesterday denies any chest pain Physical Exam 2 Vital Signs: Vital Signs: Last Vital Signs Temp 97.6 F 08/18/24 15:00 Pulse 61 08/18/24 15:00 Resp 16 08/18/24 15:00 BP 101/45 L 08/18/24 15:00 Pulse Ox 100 08/18/24 15:00 O2 Del Method Room Air 08/18/24 15:00 BMI result Body Mass Index 29.5 Appearance: Alert.? Oriented X3.sob cvs: rrr, [id number] . res: clear to auscultation. abd: soft ,nt, bs present. ext pulses present , no cyanosis . neuro: axo3 , nonfocal. Objective Data Active Medications Acetaminophen (Acetaminophen 325 Mg Tablet) 650 mg PO Q6H PRN PRN Reason: Pain, Mild 1-3,fever,headache Last Admin: 08/17/24 15:39 Dose: 650 mg Documented By: TAI Allopurinol (Allopurinol 100 Mg Tablet) 100 mg PO DAILY [facility] Last Admin: 08/18/24 10:43 Dose: 100 mg Documented By: ALLI Amiodarone HCl (Amiodarone Hcl 200 Mg Tablet) 200 mg PO DAILY@1700 [facility] Last Admin: 08/18/24 16:55 Dose: 200 mg Documented By: ALLI Atorvastatin Calcium (Atorvastatin Calcium 40 Mg Tablet) 40 mg PO BEDTIME [facility] Last Admin: 08/17/24 21:28 Dose: 40 mg Documented By: BOYD Calcium Carbonate (Calcium Carbonate 750 Mg Tab.Chew) 750 mg PO Q4H PRN PRN Reason: Heartburn Finasteride (Finasteride 5 Mg Tablet) 5 mg PO DAILY [facility] Last Admin: 08/18/24 08:02 Dose: 5 mg Documented By: ALLI Furosemide (Furosemide 20 Mg/2 Ml Vial) 20 mg IVPUSH BID@0900,1800 [facility]; Protocol Last Admin: 08/18/24 16:55 Dose: 20 mg Documented By: ALLI Gabapentin (Gabapentin 600 Mg Tablet) 600 mg PO BEDTIME [facility] Last Admin: 08/17/24 21:28 Dose: 600 mg Documented By: BOYD Levothyroxine Sodium (Levothyroxine Sodium 88 Mcg Tablet) 88 mcg PO DAILY@0600 [facility] Last Admin: 08/18/24 05:47 Dose: 88 mcg Documented By: BOYD Magnesium Hydroxide (Milk Of Magnesia 30 Ml Oral.Susp) 30 ml PO DAILY PRN PRN Reason: Constipation Last Admin: 08/18/24 10:43 Dose: 30 ml Documented By: ALLI Magnesium Oxide (Magnesium Oxide 400 Mg Tablet) 400 mg PO DAILY@1700 [facility] Last Admin: 08/18/24 16:55 Dose: 400 mg Documented By: ALLI Melatonin (Melatonin 3 Mg Tablet) 6 mg PO BEDTIME PRN PRN Reason: Insomnia Last Admin: 08/17/24 21:28 Dose: 6 mg Documented By: BOYD Omeprazole (Omeprazole 20 Mg Capsule.) 20 mg PO BID@0630,1630 [facility] Last Admin: 08/18/24 16:55 Dose: 20 mg Documented By: ALLI Rivaroxaban (Rivaroxaban 15 Mg Tablet) 15 mg PO DAILY@1700 [facility] Last Admin: 08/18/24 16:55 Dose: 15 mg Documented By: ALLI Sodium Chloride (0.9 % Sodium Chloride Flush 3 Ml Syringe) [facility] Last Admin: 08/18/24 16:59 Dose: Not Given Documented By: ALLI Non-Admin Reason: Previously Administered Spironolactone (Spironolactone 25 Mg Tablet) 25 mg PO DAILY [facility]; Protocol Last Admin: 08/18/24 08:02 Dose: 25 mg Documented By: ALLI Vitamin D (Cholecalciferol (Vitamin D3) 25 Mcg Tablet) 25 mcg PO DAILY [facility] Last Admin: 08/18/24 08:02 Dose: 25 mcg Documented By: ALLI Labs 08/16/24 10:07 08/18/24 08:42 Labs: Laboratory Results - last 24 hr 08/18/24 08:42 Anion Gap 16 Estim Creat Clear Calc 38.2 Estimated GFR 47 Random Glucose 109 Calcium 8.5 B-Natriuretic Peptide 1564 H Assessment and Plan (1) Renal failure, chronic: Status: Acute (2) Ascites: Status: Acute Plan 83-year-old male with a history of cardiac arrest, biventricular ICD, HFrEF, CKD3, paroxysmal atrial fibrillation on Xarelto, CAD, PVD, asthma, GERD, gout, KEVIN on CPAP who presents to the emergency department with increasing lower extremity edema associated with 20 lb weight gain found to have acute kidney injury LIBRA on CKD3 cr seems slightly improving 1.54 Possible cardiorenal Received IV Lasix in ED paracentesis : 3 liter fluid removed(3/325) -seems less likely sbp will do another tap in am,added albumin continue IV diuretics ,nephrology consult,moniter bmp. 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 abd us added for eval for cirrosis. ascites-unclear etiology ?cardiac. recent ua (08/11) -negative ,lft seemsfine acute on chronic combined systolic and diastolic CHF echo from 2023 with EF of 46%, this admission 08/17/24:echo-Low normal LV ejection fraction 50-55% with restrictive filling pattern on torsemide 20 bid at baseline troponin elevated chronically,no chest pain ,EKG paced rhythm bnp elevated near baseline, no fluid on cxr, no respiratory symptoms at this time continue iv lasix chronic hyponatremia : sodium seems similar range 131. Due to above ascites Appears chronic chronic anemia H/ H at baseline paroxysmal atrial fibrillation continue Xarelto, amiodarone. peripheral neuropathy : continue gabapentin . Hypothyroidism: Continue hypothyroidism HLD:continue statin KEVIN :Continue CPAP DVT prophylaxis - xarelto need for stay: management of fluid overload requiring IV diuretics, renal function/electrolytes,moniter repiratory status , i/o, nephrology eval. Quality Stroke Does the patient have a stroke diagnosis?: No VTE Prior VTE?: No VTE Risk Level:: Medical - moderate - high VTE Device Contraindication: N/A - Device Ordered VTE Drug Contraindication: N/A - Med Ordered
[2024-08-18] MEDS: Albumin Human 25 % 100 ML IV ×2 (17:44→23:24)
[2024-08-18] MEDS: ondansetron HCL 4 MG/2 ML VIAL IVPUSH (18:59)
--- NOTE | 2024-08-18 20:30 | P.PNNP_ITS ---
Subjective Subjective Date of Service: 08/18/24 Interval history: Events noted. Seen AM. All recent data reviewed Physical Exam 2 Vital Signs: Vital Signs: Last Vital Signs Temp 98.0 F 08/18/24 19:35 Pulse 63 08/18/24 19:35 Resp 20 08/18/24 19:35 BP 95/46 L 08/18/24 19:35 Pulse Ox 98 08/18/24 19:35 O2 Del Method Room Air 08/18/24 19:35 BMI result Body Mass Index 29.5 Const: General: no acute distress Orientation/consciousness: patient oriented x3 Eyes: EOM: EOMs intact bilaterally Neck: Neck: Yes supple Resp: Auscultation: diminished lung sounds Cardio: Rate: regular rate GI: Other: Distended with ascites Palpation (GI): Soft to palpation Neuro: General: patient oriented x3 Objective Data Labs 08/16/24 10:07 08/18/24 08:42 Labs: Laboratory Results - last 24 hr 08/18/24 08:42 Sodium 131 L Potassium 4.6 Chloride 99 Carbon Dioxide 21 L Anion Gap 16 BUN 66 H Creatinine 1.43 H Estim Creat Clear Calc 38.2 Estimated GFR 47 Random Glucose 109 Calcium 8.5 B-Natriuretic Peptide 1564 H Procedures Date of Service Date of Service: 08/18/24 Assessment & Plan Assessment and plan (1) CKD stage 3b, 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: Status: Acute Plan Renal function currently at baseline Serum potassium normalized Continue current dose of diuretics Tolerating Spironolactone Continue fluid restriction @ 48 oz/24 hours USS liver - ? Cardiac cirrhosis Will benefit from paracentesis( needs IV albumin)tomorrow Concur with rest of current management Shall arrange office F/U with me when D/Hardik Progress Note: Quality Stroke Does the patient have a stroke diagnosis?: No
[2024-08-18] MEDS: Gabapentin 600 MG TABLET PO (21:04)
[2024-08-18] MEDS: Atorvastatin Calcium 40 MG TABLET PO (21:04)
[2024-08-18 21:10] LABS: Glucose, Whole Blood 117 mg/dL (60-115)
[2024-08-19] VITALS (15 sets, daily range): BP systolic 86–108; BP diastolic 40–57; PULSE 60–68; RESP 12–20; TEMP 36–36.9; O2SAT 95–100; BMI 29.5
[2024-08-19] MEDS: Albumin Human 25 % 100 ML IV ×3 (04:34→21:02)
[2024-08-19] MEDS: Levothyroxine Sodium 88 MCG TABLET PO (04:34)
[2024-08-19] MEDS: Omeprazole 20 MG CAPSULE.DR PO (04:34)
[2024-08-19] MEDS: Cholecalciferol (Vitamin D3) 25 MCG TABLET PO (08:13)
[2024-08-19] MEDS: 0.9 % Sodium Chloride Flush 3 ML SYRINGE IVFLUSH ×3 (08:13→21:00)
[2024-08-19] MEDS: Milk of Magnesia 30 ML ORAL.SUSP PO (08:13)
[2024-08-19] MEDS: Spironolactone 25 MG TABLET PO (08:13)
[2024-08-19] MEDS: allopurinoL 100 MG TABLET PO (08:14)
[2024-08-19] MEDS: Finasteride 5 MG TABLET PO (08:14)
[2024-08-19 09:37] LABS: Anion Gap 17 (12-20); B Type Natriuretic Peptide 1998 pg/mL (<100); Blood Urea Nitrogen 67 mg/dL (9-16); Carbon Dioxide 24 mmol/L (22-29); Chloride 94 mmol/L (96-108); Estimated Glomerular Filt Rate 29; Glucose Random 117 mg/dL (60-115); Potassium 5.9 mmol/L (3.3-5.1); Sodium 129 mmol/L (135-145)
[2024-08-19] MEDS: Sodium Zirconium Cyclosilicate 5 GM POWD.PACK PO ×3 (10:54→18:25)
[2024-08-19 11:45] LABS: Hematocrit 21.7 % (42.0-52.0); Hemoglobin 7.3 g/dl (14.0-18.0)
--- NOTE | 2024-08-19 13:35 | P.PNNP_ITS ---
Subjective Subjective Date of Service: 08/19/24 Interval history: Events noted. Feels better Physical Exam 2 Vital Signs: Vital Signs: Last Vital Signs Temp 98.3 F 08/19/24 12:38 Pulse 60 08/19/24 13:28 Resp 12 08/19/24 13:28 BP 107/46 L 08/19/24 13:28 Pulse Ox 95 08/19/24 13:28 O2 Del Method Room Air 08/19/24 13:28 BMI result Body Mass Index 29.5 Const: General: no acute distress Orientation/consciousness: patient oriented x3 Eyes: EOM: EOMs intact bilaterally Neck: Neck: Yes supple Resp: Auscultation: diminished lung sounds Cardio: Rate: regular rate GI: Other: Distended with ascites Palpation (GI): Soft to palpation Neuro: General: patient oriented x3 Objective Data Labs 08/19/24 11:36 08/19/24 08:37 Labs: Laboratory Results - last 24 hr 08/18/24 08/19/24 08/19/24 19:42 08:37 11:36 Hgb 7.3 L D Hct 21.7 L D Sodium 129 L Potassium 5.9 H D Chloride 94 L Carbon Dioxide 24 Anion Gap 17 BUN 67 H Creatinine 2.18 H Estim Creat Clear Calc 25.0 Estimated GFR 29 POC Glucose 117 H Random Glucose 117 H Calcium 9.0 B-Natriuretic Peptide 1998 H Procedures Date of Service Date of Service: 08/19/24 Assessment & Plan Assessment and plan (1) CKD stage 3b, 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: Status: Acute Plan Creatinine is bumped up due to altered hemodynamics Serum potassium elevated due to decreased potassium secretion in the setting of LIBRA Continue current dose of diuretics Hold Spironolactone Lokelma x1 dose Continue hypotonic fluid restriction @ 48 oz/24 hours USS liver - ? Cardiac cirrhosis Await paracentesis Concur with rest of current management Shall arrange office F/U with me when D/Hardik Time Spent With Patient Time: Total time managing care of this patient today ____ minutes. Progress Note: Quality Stroke Does the patient have a stroke diagnosis?: No
[2024-08-19] MEDS: Lidocaine HCl 1 % MPF 5 ML VIAL SUBCUT (13:53)
--- NOTE | 2024-08-19 14:02 | P.PNIM_ITS ---
Subjective Subjective Date of Service: 08/19/24 Interval History: libra ,hyperkalemia ,anemia Review of Systems c/o constipation he says was starining this morning when passed bm ,has some rectal bleeding also has some slow oozing from paracentesis site. boderline bp. Physical Exam 2 Vital Signs: Vital Signs: Last Vital Signs Temp 98.3 F 08/19/24 12:38 Pulse 60 08/19/24 13:28 Resp 12 08/19/24 13:28 BP 107/46 L 08/19/24 13:28 Pulse Ox 95 08/19/24 13:28 O2 Del Method Room Air 08/19/24 13:28 BMI result Body Mass Index 29.5 Appearance: Alert.? Oriented X3.sob cvs: rrr, [id number] . res: clear to auscultation. abd: soft ,nt, bs present,ascitis ext pulses present , no cyanosis . neuro: axo3 , nonfocal. Objective Data Active Medications Acetaminophen (Acetaminophen 325 Mg Tablet) 650 mg PO Q6H PRN PRN Reason: Pain, Mild 1-3,fever,headache Last Admin: 08/17/24 15:39 Dose: 650 mg Documented By: TAI Allopurinol (Allopurinol 100 Mg Tablet) 100 mg PO DAILY [facility] Last Admin: 08/19/24 08:14 Dose: 100 mg Documented By: ALLI Amiodarone HCl (Amiodarone Hcl 200 Mg Tablet) 200 mg PO DAILY@1700 [facility] Last Admin: 08/18/24 16:55 Dose: 200 mg Documented By: ALLI Atorvastatin Calcium (Atorvastatin Calcium 40 Mg Tablet) 40 mg PO BEDTIME [facility] Last Admin: 08/18/24 21:04 Dose: 40 mg Documented By: ANA Calcium Carbonate (Calcium Carbonate 750 Mg Tab.Chew) 750 mg PO Q4H PRN PRN Reason: Heartburn Finasteride (Finasteride 5 Mg Tablet) 5 mg PO DAILY [facility] Last Admin: 08/19/24 08:14 Dose: 5 mg Documented By: ALLI Furosemide (Furosemide 20 Mg/2 Ml Vial) 20 mg IVPUSH BID@0900,1800 [facility]; Protocol Last Admin: 08/18/24 16:55 Dose: 20 mg Documented By: ALLI Gabapentin (Gabapentin 600 Mg Tablet) 600 mg PO BEDTIME [facility] Last Admin: 08/18/24 21:04 Dose: 600 mg Documented By: ANA Albumin Human (Kedbumin 25 %) 100 mls @ 100 mls/hr IV Q6H [facility] Stop: 08/20/24 11:59 Levothyroxine Sodium (Levothyroxine Sodium 88 Mcg Tablet) 88 mcg PO DAILY@0600 [facility] Last Admin: 08/19/24 04:34 Dose: 88 mcg Documented By: ANA Magnesium Hydroxide (Milk Of Magnesia 30 Ml Oral.Susp) 30 ml PO DAILY PRN PRN Reason: Constipation Last Admin: 08/19/24 08:13 Dose: 30 ml Documented By: ALLI Magnesium Oxide (Magnesium Oxide 400 Mg Tablet) 400 mg PO DAILY@1700 [facility] Last Admin: 08/18/24 16:55 Dose: 400 mg Documented By: ALLI Melatonin (Melatonin 3 Mg Tablet) 6 mg PO BEDTIME PRN PRN Reason: Insomnia Last Admin: 08/17/24 21:28 Dose: 6 mg Documented By: BOYD Ondansetron HCl (Ondansetron Hcl 4 Mg/2 Ml Vial) 4 mg IVPUSH Q8H PRN PRN Reason: Nausea Last Admin: 08/18/24 18:59 Dose: 4 mg Documented By: ALLI Pantoprazole Sodium (Pantoprazole Sodium 40 Mg/10 Ml Vial) 40 mg IVPUSH BID@0630,1630 [facility] Polyethylene Glycol (Polyethylene Glycol 3350 17 Gm Powd.Pack) 17 gm PO DAILY [facility] Last Admin: 08/19/24 10:42 Dose: Not Given Documented By: ALLI Non-Admin Reason: patient had a bowel movement Sodium Chloride (0.9 % Sodium Chloride Flush 3 Ml Syringe) 3 ml IVFLUSH QSHIFT [facility] Last Admin: 08/19/24 08:13 Dose: 3 ml Documented By: ALLI Spironolactone (Spironolactone 25 Mg Tablet) 25 mg PO DAILY [facility]; Protocol Last Admin: 08/19/24 08:13 Dose: 25 mg Documented By: ALLI Vitamin D (Cholecalciferol (Vitamin D3) 25 Mcg Tablet) 25 mcg PO DAILY [facility] Last Admin: 08/19/24 08:13 Dose: 25 mcg Documented By: ALLI Labs 08/19/24 11:36 08/19/24 08:37 Labs: Laboratory Results - last 24 hr 08/18/24 08/19/24 19:42 08:37 Anion Gap 17 Estim Creat Clear Calc 25.0 Estimated GFR 29 POC Glucose 117 H Random Glucose 117 H Calcium 9.0 B-Natriuretic Peptide 1998 H Assessment and Plan (1) Renal failure, chronic: Status: Acute (2) Ascites: Status: Acute Assessment and Plan: 83-year-old male with a history of cardiac arrest, biventricular ICD, HFrEF, CKD3, paroxysmal atrial fibrillation on Xarelto, CAD, PVD, asthma, GERD, gout, KEVIN on CPAP who presents to the emergency department with increasing lower extremity edema associated with 20 lb weight gain found to have acute kidney injury LIBRA on CKD3 cr seems slightly improving 1.54 Possible cardiorenal Received IV Lasix in ED paracentesis : 3 liter fluid removed(08/16/24) ,also going for paracenetsis today. 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 ascites-unclear etiology ?cardiac. plan: hold lasix/sprinolactone since going for paracentesis and has libra on ckd.added albumin since going for paracentesis. Given Lokelma, spironolactone on hold due to hyperkalemia. nephrology following acute on chronic combined systolic and diastolic CHF echo from 2023 with EF of 46%, this admission 08/17/24:echo-Low normal LV ejection fraction 50-55% with restrictive filling pattern on torsemide 20 bid at baseline troponin elevated chronically,no chest pain ,EKG paced rhythm bnp elevated near baseline, no fluid on cxr, no respiratory symptoms at this time hold lasix as above. chronic hyponatremia : sodium seems similar range 131. Due to above ascites Appears chronic acute blood loss on chronic anemia epiosde of rectal bleed added type and screen ,1 prbc moniter H/ H,ppi,hold xarelto paroxysmal atrial fibrillation amiodarone, hold xarelto. peripheral neuropathy :continue gabapentin . Hypothyroidism:Continue hypothyroidism. HLD:continue statin . KEVIN :Continue CPAP. DVT prophylaxis - xarelto need for stay: management of fluid overload requiring IV diuretics, renal function/electrolytes,moniter repiratory status , i/o, nephrology eval. Quality Stroke Does the patient have a stroke diagnosis?: No VTE Prior VTE?: No VTE Risk Level:: Medical - moderate - high VTE Device Contraindication: N/A - Device Ordered VTE Drug Contraindication: N/A - Med Ordered
--- NOTE | 2024-08-19 14:54 | P.CNGI_ITS ---
History of Present Illness Data of Consult Service Date: 08/19/24 Requesting physician: Nicole Blas Primary Care Provider: Prince Manning MD HPI 83 YM with hx of cardiac arrest (03/2023) s/p biventricular ICD in place, HFrEF, CKD3, paroxysmal a fib on xarelto, CAD, PVD unspecified asthma, GERD, gout and KEVIN on nasal CPAP, heart failure seen at [facility] ED on 08/16/24 with increasing lower extremity edema and reported 20 lb weight gain over the past 2 weeks. Patient was discharged from [facility] on August 03 (Aldactone was discontinued due to hyperkalemia). Pt reported resuming aldactone on his own approximately 1 week ago due to his increasing lower extremity edema. He also reports associated abdominal distention and denied chest pain, palpitations, dyspnea. Creatinine increased at 1.81, BNP 1832. Ultrasound with paracentesis ordered by ED provider, not obtained at this time. Patient was admitted for further management of fluid overload GI consulted due to a decrease in H & H to 7.3 & 21.7 today (9.2 & 27.2 on 08/16/24) Pt reports a hx of constipation and had no BM x 4 days. Today he notes he had a hard stool associated with straining and had a BM with BRB. Blood was bright red and appeared separate from the stool, pt denies passage of black stools. Patient denies abdominal pain or heartburn. Pt reports having a paracentesis done today and 3 litres of fluid was removed Patient reports having a colonoscopy at [facility] approximately 7 years ago which showed diverticulosis and no polyps. Patient was advised to have a follow-up colonoscopy in 10 years or discontinue screening. Pt admits to past smoking and binge drinking > 40 yrs ago. 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 Ascites, moderate to large volume. Cholelithiasis. Focal area of possible adenomyosis, gallbladder fundus. ( Review of Systems 2 Review of Systems: Yes all other systems are reviewed and are negative [facility] Past Medical History Medical History Hyponatremia Iron deficiency anemia Elevated LFTs CKD (chronic kidney disease) LIBRA (acute kidney injury) Ischemic cardiomyopathy History of torsades de pointes Atherosclerotic cardiovascular disease Elevated serum creatinine Biventricular ICD (implantable cardioverter-defibrillator) in place Syncope RBBB PVD (peripheral vascular disease) Hx of thyroid nodule GERD (gastroesophageal reflux disease) CAD (coronary artery disease) BPH (benign prostatic hyperplasia) Asthma Atrial fibrillation Family History Family History Mother Breast cancer Father Heart attack Brother Stomach cancer Brother Heart disease Surgical History Surgical History Hx of CABG Hx of cardiac cath H/O right knee surgery H/O heart surgery Social History Social History Household Members: None Housing: House Do you presently have visiting nurse or other home services: Yes (PT and visiting nurses) Alcohol intake: former Comment: pt refusing red socks, alarms, and camera Patient Tobacco Use Status: Former Tobacco user Years Smoked: 25 +/- Advance Directives Date on File: 10/31/23 service: No Meds Allergies Allergy/AdvReac Type Severity Reaction Status Date / Time doxycycline Allergy Unknown Unknown Verified 08/16/24 09:25 narcotics AdvReac Nausea and Uncoded 08/16/24 09:25 Vomiting, hypotensive Active Medications: Current Medications Acetaminophen (Acetaminophen 325 Mg Tablet) 650 mg PO Q6H PRN PRN Reason: Pain, Mild 1-3,fever,headache Last Admin: 08/17/24 15:39 Dose: 650 mg Allopurinol (Allopurinol 100 Mg Tablet) 100 mg PO DAILY [facility] Last Admin: 08/19/24 08:14 Dose: 100 mg Amiodarone HCl (Amiodarone Hcl 200 Mg Tablet) 200 mg PO DAILY@1700 [facility] Last Admin: 08/18/24 16:55 Dose: 200 mg Atorvastatin Calcium (Atorvastatin Calcium 40 Mg Tablet) 40 mg PO BEDTIME [facility] Last Admin: 08/18/24 21:04 Dose: 40 mg Calcium Carbonate (Calcium Carbonate 750 Mg Tab.Chew) 750 mg PO Q4H PRN PRN Reason: Heartburn Docusate Sodium (Docusate Sodium 100 Mg Capsule) 100 mg PO BID [facility] Finasteride (Finasteride 5 Mg Tablet) 5 mg PO DAILY [facility] Last Admin: 08/19/24 08:14 Dose: 5 mg Furosemide (Furosemide 20 Mg/2 Ml Vial) 20 mg IVPUSH BID@0900,1800 [facility]; Protocol Last Admin: 08/18/24 16:55 Dose: 20 mg Gabapentin (Gabapentin 600 Mg Tablet) 600 mg PO BEDTIME [facility] Last Admin: 08/18/24 21:04 Dose: 600 mg Albumin Human (Kedbumin 25 %) 100 mls @ 100 mls/hr IV Q6H [facility] Stop: 08/20/24 11:59 Levothyroxine Sodium (Levothyroxine Sodium 88 Mcg Tablet) 88 mcg PO DAILY@0600 [facility] Last Admin: 08/19/24 04:34 Dose: 88 mcg Magnesium Hydroxide (Milk Of Magnesia 30 Ml Oral.Susp) 30 ml PO DAILY PRN PRN Reason: Constipation Last Admin: 08/19/24 08:13 Dose: 30 ml Magnesium Oxide (Magnesium Oxide 400 Mg Tablet) 400 mg PO DAILY@1700 [facility] Last Admin: 08/18/24 16:55 Dose: 400 mg Melatonin (Melatonin 3 Mg Tablet) 6 mg PO BEDTIME PRN PRN Reason: Insomnia Last Admin: 08/17/24 21:28 Dose: 6 mg Ondansetron HCl (Ondansetron Hcl 4 Mg/2 Ml Vial) 4 mg IVPUSH Q8H PRN PRN Reason: Nausea Last Admin: 08/18/24 18:59 Dose: 4 mg Pantoprazole Sodium (Pantoprazole Sodium 40 Mg/10 Ml Vial) 40 mg IVPUSH BID@0630,1630 [facility] Polyethylene Glycol (Polyethylene Glycol 3350 17 Gm Powd.Pack) 17 gm PO BID [facility] Sodium Chloride (0.9 % Sodium Chloride Flush 3 Ml Syringe) [facility] Last Admin: 08/19/24 08:13 Dose: 3 ml Sodium Zirconium Cyclosilicate (Sodium Zirconium Cyclosilicate 5 Gm Powd.Pack) 5 gm PO ONCE ONE Stop: 08/19/24 14:54 Spironolactone (Spironolactone 25 Mg Tablet) 25 mg PO DAILY [facility]; Protocol Last Admin: 08/19/24 08:13 Dose: 25 mg Vitamin D (Cholecalciferol (Vitamin D3) 25 Mcg Tablet) 25 mcg PO DAILY [facility] Last Admin: 08/19/24 08:13 Dose: 25 mcg Home Medications ?Medication ?Instructions ?Recorded ?Confirmed ?Last Taken ?Type finasteride 5 mg tablet 5 mg PO DAILY 06/18/21 08/16/24 08/16/24 History pantoprazole 40 mg tablet,delayed 40 mg PO BID@0630,1630 06/18/21 08/16/24 08/16/24 History release allopurinol 100 mg tablet 100 mg PO DAILY 10/27/23 08/16/24 08/16/24 History levothyroxine 88 mcg tablet 88 mcg DAILY@0600 04/12/24 08/16/24 08/16/24 History calcium carbonate 500 mg PO BEDTIME 08/02/24 08/16/24 08/15/24 History cholecalciferol (vitamin D3) 25 25 mcg PO DAILY 08/02/24 08/16/24 08/16/24 History mcg (1,000 unit) tablet (Vitamin D3) magnesium oxide 400 mg PO DAILY@1700 08/02/24 08/16/24 08/15/24 History spironolactone 25 mg tablet 25 mg PO DAILY 08/16/24 08/16/24 08/16/24 History torsemide 20 mg tablet 20 mg PO BEDTIME 08/16/24 08/16/24 08/15/24 History Physical Exam 2 Vital Signs: Vital Signs: Last Vital Signs Temp 97.1 F 08/19/24 14:00 Pulse 63 08/19/24 14:00 Resp 14 08/19/24 14:00 BP 103/48 L 08/19/24 14:00 Pulse Ox 97 08/19/24 14:00 O2 Del Method Room Air 08/19/24 14:00 BMI result Body Mass Index 29.5 Appearance: Alert.? Oriented X3.sob cvs: rrr, [id number] . res: clear to auscultation. abd: soft ,nt, bs present,ascitis ext pulses present , no cyanosis . neuro: axo3 , nonfocal. Results Labs 08/19/24 11:36 08/19/24 08:37 Labs: Short CBC 08/19/24 Range/Units 11:36 Hgb 7.3 L D (14.0-18.0) g/dl Hct 21.7 L D (42.0-52.0) % BMP 08/19/24 08:37 Sodium 129 L Potassium 5.9 H D Chloride 94 L Carbon Dioxide 24 BUN 67 H Creatinine 2.18 H Calcium 9.0 Assessment and Plan (1) Acute on chronic anemia: Status: Acute (2) Rectal bleeding: Status: Acute Plan 83 YM with hx of cardiac arrest (03/2023) s/p biventricular ICD in place, HFrEF, CKD3, paroxysmal a fib on xarelto, CAD, PVD unspecified asthma, GERD, gout and KEVIN on nasal CPAP, heart failure seen at [facility] ED on 08/16/24 with increasing lower extremity edema and reported 20 lb weight gain over the past 2 weeks. GI consulted due to a decrease in H & H to 7.3 & 21.7 today (9.2 & 27.2 on 08/16/24) Pt reports a hx of constipation and had no BM x 4 days. Today he notes he had a hard stool associated with straining and had a BM with BRB. Blood was bright red and appeared separate from the stool, pt denies passage of black stools. Rectal bleeding is likely from rectal irritation from passage of hard stools. Pt reports having a paracentesis done today and 3 litres of fluid was removed Pt notes he was told he had some liver problems since he had cardiac arrest in 05/2023 Past Iron studies cw NEHA and pt has been treated with oral iron replacement in the past. 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 RECOMMENDATIONS 1. Agree with blood transfusion and IV PPI 2. Monitor CBC twice daily x 24 hrs and then QD if stable 3. Miralax PO twice daily for constipation 4. Pt can be managed conservatively since he is not a candidate for endoscopic evaluation at present given advanced cardiac disease Procedures Date of Service Date of Service: 08/19/24
[2024-08-19] MEDS: Docusate Sodium 100 MG CAPSULE PO ×2 (15:29→21:01)
[2024-08-19] MEDS: Acetaminophen 325 MG TABLET 650 MG PO ×2 (15:29→22:24)
[2024-08-19] MEDS: diphenhydrAMINE HCL 25 MG CAPSULE 12.5 MG PO (15:29)
[2024-08-19] MEDS: Pantoprazole Sodium 40 MG/10 ML VIAL IVPUSH (15:29)
[2024-08-19 17:26] LABS: Potassium 5.6 mmol/L (3.3-5.1)
[2024-08-19] MEDS: Magnesium Oxide 400 MG TABLET PO (17:27)
[2024-08-19] MEDS: Amiodarone HCL 200 MG TABLET PO (17:27)
[2024-08-19] MEDS: polyethylene glycoL 3350 17 GM POWD.PACK PO (21:00)
[2024-08-19] MEDS: Atorvastatin Calcium 40 MG TABLET PO (21:01)
[2024-08-19] MEDS: Gabapentin 600 MG TABLET PO (21:01)
[2024-08-19] MEDS: 0.9 % Sodium Chloride 500 ML IV (21:01)
[2024-08-19] MEDS: Midodrine HCl 5 MG TABLET PO (21:01)
[2024-08-20] VITALS (13 sets, daily range): BP systolic 83–109; BP diastolic 41–56; PULSE 59–67; RESP 12–20; TEMP 35.9–36.9; O2SAT 96–100
[2024-08-20] MEDS: Albumin Human 25 % 100 ML IV ×3 (05:17→17:45)
[2024-08-20] MEDS: Levothyroxine Sodium 88 MCG TABLET PO (05:18)
[2024-08-20] MEDS: Pantoprazole Sodium 40 MG/10 ML VIAL IVPUSH ×2 (05:18→17:47)
[2024-08-20 07:44] LABS: MANUAL DIFF FLAG NO
[2024-08-20 07:55] LABS: Basophils Percent Auto 0.2 % (0-2); Eosinophils Absolute Auto 0.2 X10*3/uL (0.0-0.4); Imm Gran Abs Auto 0.13 X10*3/uL (0.00-0.03); Imm Gran Pct Auto 1.4 % (0.0-0.4); Lymphocytes Absolute Auto 0.8 X10*3/uL (1.2-4.9); Lymphocytes Percent Auto 8.7 % (20-40); Mean Corpuscular HGB Conc 33.5 g/dl (31.0-36.0); Mean Corpuscular Volume 92.6 fL (80.0-98.0); Mean Platelet Volume 10.7 fL (9.4-12.4); Monocytes Absolute Auto 0.7 X10*3/uL (0.1-1.2); Monocytes Percent Auto 7.3 % (2-11); Neutrophils Absolute Auto 7.6 x10*3/uL (2.0-8.3); Neutrophils Percent Auto 80.4 % (45-73); Platelet Count 212 X10*3/uL (160-400); Red Blood Count 2.03 X10*6/uL (4.60-5.80); Red Cell Distribution Width 18.2 % (11.0-16.0); White Blood Count 9.5 X10*3/uL (4.8-10.8)
[2024-08-20] MEDS: allopurinoL 100 MG TABLET PO (08:00)
[2024-08-20] MEDS: Finasteride 5 MG TABLET PO (08:01)
[2024-08-20] MEDS: Docusate Sodium 100 MG CAPSULE PO ×2 (08:01→19:46)
[2024-08-20] MEDS: Cholecalciferol (Vitamin D3) 25 MCG TABLET PO (08:01)
[2024-08-20] MEDS: 0.9 % Sodium Chloride Flush 3 ML SYRINGE IVFLUSH ×2 (08:01→17:46)
[2024-08-20] MEDS: 0.9 % Sodium Chloride 500 ML 250 ML IVCONT (08:01)
[2024-08-20 08:03] LABS: Anion Gap 16 (12-20); Blood Urea Nitrogen 77 mg/dL (9-16); Calcium 8.8 mg/dL (8.4-10.2); Carbon Dioxide 22 mmol/L (22-29); Chloride 94 mmol/L (96-108); Creatinine Clr Calc Pharmacy 20.3; Estimated Glomerular Filt Rate 23; Glucose Random 127 mg/dL (60-115); Potassium 5.2 mmol/L (3.3-5.1); Sodium 127 mmol/L (135-145)
[2024-08-20 08:18] LABS: Hematocrit 18.8 % (42.0-52.0); Hemoglobin 6.3 g/dl (14.0-18.0)
[2024-08-20] MEDS: polyethylene glycoL 3350 17 GM POWD.PACK PO ×2 (08:58→19:47)
--- NOTE | 2024-08-20 11:44 | PM.CNCAR ---
History of Present Illness History of Present Illness Date of Service: 08/20/24 Requesting physician: Nicole Blas Consult reason: congestive heart failure Chief complaint: Fluid overload, LIBRA Narrative: I was consulted to see can in cardiology consultation today for management of heart failure. Patient was 83-year-old male well known to our service with advanced heart failure with cardiorenal syndrome with also advanced kidney disease with, atrial fibrillation suppressed on amiodarone and on chronic anticoagulation, chronic anemia, frailty, biventricular ICD in place, prior ventricular tachycardia, admitted to the hospital with worsening heart failure syndrome. Patient was has mild multiple hospitalization for advanced heart failure and decompensation and has had difficult to treat heart failure syndrome. Last admitted in April when he was diuresed for 3 weeks and subsequently released to a [facility]pc facility and subsequently went home and did well actually on torsemide and spironolactone therapy till about 2 weeks ago when he started having recurrent fluid gain, daughter was a nurse try to increase torsemide at home and but subsequently fell and was noted to have hyperkalemia and at that time his spironolactone was held. He was then released home and subsequently continued to have progressive heart failure syndrome and came to the hospital. In the hospital he was noted to have significant right heart failure syndrome which is what he presents with and was diuresed but subsequently also had rising creatinine. He said he has urine output is very minimal at this point time. Yesterday he underwent paracentesis for ascites which has been his problem in the past related to right heart failure syndrome as well as cardiac cirrhosis. Yesterday went paracentesis and subsequently has developed a hematoma in the lateral abdominal wall any also notice some blood in his stools. His Xarelto was withheld and he was subsequently noted to be significantly anemic. His urine output has gone down. Overnight he has had significant abdominal distention again. He said he is not significantly short of breath at this point time. Echocardiogram this time shows preserved LV ejection fraction 50-55% but shows moderate to severe elevation right ventricular systolic pressure was significantly elevated right atrial pressures. His creatinine is continuing to rise. Review of Systems Constitutional: Constitutional: Reports fatigue, Reports poor appetite, Reports weakness and Reports weight gain Cardiovascular: Cardiovascular: Reports Abdominal Distension, Denies chest pain, Denies rapid heart rate, Denies lightheadedness, Denies Loss of Consciousness, Denies palpitations, Denies dyspnea and Reports dyspnea on exertion Respiratory: Respiratory: Denies dyspnea and Reports dyspnea on exertion Gastrointestinal: Gastrointestinal: Reports hematochezia and Reports other (Hematoma at the site of paracentesis,) Genitourinary: Genitourinary: Reports no additional male genitourinary complaints Musculoskeletal: Musculoskeletal: Reports no additional musculoskeletal complaints Neurologic: Reports system reviewed and no additional complaints, except as documented and Reports weakness Psychiatric: Psychiatric: Reports no additional psychiatric complaints Endocrine: Endocrine: Reports fatigue and Denies palpitations [facility] Past Medical History Medical History Hyponatremia Iron deficiency anemia Elevated LFTs CKD (chronic kidney disease) LIBRA (acute kidney injury) Ischemic cardiomyopathy History of torsades de pointes Atherosclerotic cardiovascular disease Elevated serum creatinine Biventricular ICD (implantable cardioverter-defibrillator) in place Syncope RBBB PVD (peripheral vascular disease) Hx of thyroid nodule GERD (gastroesophageal reflux disease) CAD (coronary artery disease) BPH (benign prostatic hyperplasia) Asthma Atrial fibrillation Family History Family History Mother Breast cancer Father Heart attack Brother Stomach cancer Brother Heart disease Surgical History Surgical History Hx of CABG Hx of cardiac cath H/O right knee surgery H/O heart surgery Social History Social History Household Members: None Housing: House Do you presently have visiting nurse or other home services: Yes (PT and visiting nurses) Alcohol intake: former Comment: pt refusing red socks, alarms, and camera Patient Tobacco Use Status: Former Tobacco user Years Smoked: 25 +/- Advance Directives Date on File: 10/31/23 service: No Meds Allergies Allergy/AdvReac Type Severity Reaction Status Date / Time doxycycline Allergy Unknown Unknown Verified 08/16/24 09:25 narcotics AdvReac Nausea and Uncoded 08/16/24 09:25 Vomiting, hypotensive Active Medications: Current Medications Acetaminophen (Acetaminophen 325 Mg Tablet) 650 mg PO Q6H PRN PRN Reason: Pain, Mild 1-3,fever,headache Last Admin: 08/19/24 22:24 Dose: 650 mg Allopurinol (Allopurinol 100 Mg Tablet) 100 mg PO DAILY [facility] Last Admin: 08/20/24 08:00 Dose: 100 mg Amiodarone HCl (Amiodarone Hcl 200 Mg Tablet) 200 mg PO DAILY@1700 [facility] Last Admin: 08/19/24 17:27 Dose: 200 mg Atorvastatin Calcium (Atorvastatin Calcium 40 Mg Tablet) 40 mg PO BEDTIME [facility] Last Admin: 08/19/24 21:01 Dose: 40 mg Calcium Carbonate (Calcium Carbonate 750 Mg Tab.Chew) 750 mg PO Q4H PRN PRN Reason: Heartburn Docusate Sodium (Docusate Sodium 100 Mg Capsule) 100 mg PO BID [facility] Last Admin: 08/20/24 08:01 Dose: 100 mg Finasteride (Finasteride 5 Mg Tablet) 5 mg PO DAILY [facility] Last Admin: 08/20/24 08:01 Dose: 5 mg Furosemide (Furosemide 20 Mg/2 Ml Vial) 20 mg IVPUSH BID@0900,1800 [facility]; Protocol Last Admin: 08/18/24 16:55 Dose: 20 mg Gabapentin (Gabapentin 600 Mg Tablet) 600 mg PO BEDTIME [facility] Last Admin: 08/19/24 21:01 Dose: 600 mg Albumin Human (Kedbumin 25 %) 100 mls @ 100 mls/hr IV Q6H [facility] Stop: 08/20/24 16:59 Last Infusion: 08/20/24 07:09 Dose: Infused Bumetanide 25 mg/ IV (Miscellaneous Supplies) 100 mls @ 1 mls/hr IVCONT .Q24H [facility] Levothyroxine Sodium (Levothyroxine Sodium 88 Mcg Tablet) 88 mcg PO DAILY@0600 [facility] Last Admin: 08/20/24 05:18 Dose: 88 mcg Magnesium Hydroxide (Milk Of Magnesia 30 Ml Oral.Susp) 30 ml PO DAILY PRN PRN Reason: Constipation Last Admin: 08/19/24 08:13 Dose: 30 ml Magnesium Oxide (Magnesium Oxide 400 Mg Tablet) 400 mg PO DAILY@1700 [facility] Last Admin: 08/19/24 17:27 Dose: 400 mg Melatonin (Melatonin 3 Mg Tablet) 6 mg PO BEDTIME PRN PRN Reason: Insomnia Last Admin: 08/17/24 21:28 Dose: 6 mg Ondansetron HCl (Ondansetron Hcl 4 Mg/2 Ml Vial) 4 mg IVPUSH Q8H PRN PRN Reason: Nausea Last Admin: 08/18/24 18:59 Dose: 4 mg Pantoprazole Sodium (Pantoprazole Sodium 40 Mg/10 Ml Vial) 40 mg IVPUSH BID@0630,1630 [facility] Last Admin: 08/20/24 05:18 Dose: 40 mg Polyethylene Glycol (Polyethylene Glycol 3350 17 Gm Powd.Pack) 17 gm PO BID [facility] Last Admin: 08/20/24 08:58 Dose: 17 gm Sodium Chloride (0.9 % Sodium Chloride Flush 3 Ml Syringe) 3 ml IVFLUSH QSHIFT [facility] Last Admin: 08/20/24 08:01 Dose: 3 ml Spironolactone (Spironolactone 25 Mg Tablet) 25 mg PO DAILY [facility]; Protocol Last Admin: 08/19/24 08:13 Dose: 25 mg Vitamin D (Cholecalciferol (Vitamin D3) 25 Mcg Tablet) 25 mcg PO DAILY [facility] Last Admin: 08/20/24 08:01 Dose: 25 mcg Home Medications ?Medication ?Instructions ?Recorded ?Confirmed ?Last Taken ?Type finasteride 5 mg tablet 5 mg PO DAILY 06/18/21 08/16/24 08/16/24 History pantoprazole 40 mg tablet,delayed 40 mg PO BID@0630,1630 06/18/21 08/16/24 08/16/24 History release allopurinol 100 mg tablet 100 mg PO DAILY 10/27/23 08/16/24 08/16/24 History levothyroxine 88 mcg tablet 88 mcg DAILY@0600 04/12/24 08/16/24 08/16/24 History calcium carbonate 500 mg PO BEDTIME 08/02/24 08/16/24 08/15/24 History cholecalciferol (vitamin D3) 25 25 mcg PO DAILY 08/02/24 08/16/24 08/16/24 History mcg (1,000 unit) tablet (Vitamin D3) magnesium oxide 400 mg PO DAILY@1700 08/02/24 08/16/24 08/15/24 History spironolactone 25 mg tablet 25 mg PO DAILY 08/16/24 08/16/24 08/16/24 History torsemide 20 mg tablet 20 mg PO BEDTIME 08/16/24 08/16/24 08/15/24 History Physical Exam Vital Signs: Vital Signs: Last Vital Signs Temp 97.2 F 08/20/24 11:22 Pulse 63 03/07/25 11:22 Resp 20 08/20/24 11:22 BP 98/54 L 08/20/24 11:22 Pulse Ox 100 08/20/24 11:22 O2 Del Method Room Air 08/20/24 11:22 BMI result Body Mass Index 29.5 Const: General: alert, awake, ill appearing and tired appearing Nutritional Appearance: average body habitus and other (Frail) Orientation/consciousness: patient oriented x3 HEENT: Head: Yes normocephalic and Yes atraumatic Neck: Neck: Yes trachea midline, Yes supple and Yes JVD Resp: Effort & Inspection: normal respiratory effort Auscultation: crackles bilateral Cardio: Jugular venous distension: JVD Palpation: normal PMI Rate: regular rate Rhythm: regular rhythm Heart sounds: S1 normal heart sound present, S2 normal heart sound present, no click, no gallops and Murmur heart sound present systolic GI: Inspection: Yes distended Auscultation: normal bowel sounds Skin: General skin exam: no rashes or lesions noted and ecchymosis Neuro: General: patient oriented x3 and no focal motor deficits Extrem: General: No clubbing, No cyanosis and Yes edema Psych: Appearance: grossly normal Objective Labs and Meds 08/20/24 06:42 08/20/24 06:42 Lab results: Laboratory Results - last 24 hr 08/19/24 08/19/24 08/19/24 11:36 14:17 16:10 WBC RBC Hgb 7.3 L D Hct 21.7 L D MCV MCH MCHC RDW Plt Count MPV Immature Gran % (Auto) Neut % (Auto) Lymph % (Auto) [place] % (Auto) Eos % (Auto) Baso % (Auto) Lymph # (Auto) [place] # (Auto) Eos # (Auto) Baso # (Auto) Abs Immat Gran (auto) Absolute Neuts (auto) Absolute Nucleated RBC Nucleated RBC % (auto) Smear Path Review Sodium Potassium 5.6 H Chloride Carbon Dioxide Anion Gap BUN Creatinine Estim Creat Clear Calc Estimated GFR Random Glucose Calcium Blood Type A Positive Antibody Screen NEGATIVE Crossmatch See Detail 08/20/24 06:42 WBC 9.5 RBC 2.03 L D Hgb 6.3 L* Hct 18.8 L* MCV 92.6 MCH 31.0 MCHC 33.5 RDW 18.2 H Plt Count 212 MPV 10.7 Immature Gran % (Auto) 1.4 H Neut % (Auto) 80.4 H Lymph % (Auto) 8.7 L [place] % (Auto) 7.3 Eos % (Auto) 2.0 Baso % (Auto) 0.2 Lymph # (Auto) 0.8 L [place] # (Auto) 0.7 Eos # (Auto) 0.2 Baso # (Auto) 0.0 Abs Immat Gran (auto) 0.13 H Absolute Neuts (auto) 7.6 Absolute Nucleated RBC 0.000 Nucleated RBC % (auto) 0.0 Smear Path Review SEE NOTE Sodium 127 L Potassium 5.2 H Chloride 94 L Carbon Dioxide 22 Anion Gap 16 BUN 77 H Creatinine 2.69 H Estim Creat Clear Calc 20.3 Estimated GFR 23 Random Glucose 127 H Calcium 8.8 Blood Type Antibody Screen Crossmatch Assessment and Plan (1) Decompensated heart failure: Status: Acute Decompensated and advanced congestive heart failure predominantly right heart failure syndrome in this elderly gentleman with multiple comorbidities including cardiorenal syndrome with chronic kidney disease, cardiac cirrhosis with recurrent ascites, ICD in place, atrial fibrillation suppressed on amiodarone, prior ventricular arrhythmias, frailty, significant anemia with now bleeding complication. Patient clinically appears to be significantly fluid overloaded and needs aggressive diuresis. This should help his cardiorenal syndrome as well as congestive heart failure syndrome. I would start him on IV Bumex drip. Blood pressure is issue but I think this needs to be addressed. Continue monitor blood pressure closely. I will also give him a dose of metolazone to help with the diuretic process. Strict intake and output chart needs to be pursued. Continue monitor renal function closely. Overall prognosis is poor and was discussed with the daughter was a nurse. I did discuss with her about consideration of palliative care although will approach this subject more slowly. In between these episodes of hospitalization he has been doing very well at home. I would stop spironolactone therapy given his hyperkalemia at this point time. Continue rhythm control approach continue amiodarone for now. Continue other therapy. Hold Xarelto due to bleeding complication. Scan the belly for any significant blood collection with a noncontrast CT. Transfuse to hematocrit over 30. Will follow with him. Greater than 40 minutes was spent in managing his complex care. Procedures Date of Service Date of Service: 08/20/24
[2024-08-20] MEDS: Bumetanide 25 MG in Container,Empty 0 ML IVCONT (13:26)
[2024-08-20] MEDS: ondansetron HCL 4 MG/2 ML VIAL IVPUSH (13:26)
[2024-08-20 14:06] LABS: Fibrinogen 439 MG/DL (259-690); INTERNATIONAL NORM RATIO 1.6 (0.9-1.1); Prothrombin Time 18.6 SEC (10.9-12.4)
[2024-08-20 14:09] LABS: Partial Thromboplastin Time 31.4 SEC (26.0-36.8)
--- NOTE | 2024-08-20 16:54 | P.PNIM_ITS ---
Subjective Subjective Date of Service: 08/20/24 Interval History: libra ,hyperkalemia ,anemia Review of Systems has acitis and edema has some brusing at paracentesis site. no fevers Physical Exam 2 Vital Signs: Vital Signs: Last Vital Signs Temp 97.1 F 08/20/24 15:14 Pulse 60 08/20/24 15:14 Resp 18 08/20/24 15:14 BP 96/49 L 08/20/24 15:14 Pulse Ox 99 08/20/24 15:14 O2 Del Method Room Air 08/20/24 15:14 BMI result Body Mass Index 29.5 Appearance: Alert.? Oriented X3. cvs: rrr, [id number] . res: air entry fair ,has few cracles at bases abd: soft ,nt, bs present,ascitis ext pulses present , no cyanosis ,has edema . neuro: axo3 , nonfocal. Objective Data Active Medications Acetaminophen (Acetaminophen 325 Mg Tablet) 650 mg PO Q6H PRN PRN Reason: Pain, Mild 1-3,fever,headache Last Admin: 08/19/24 22:24 Dose: 650 mg Documented By: GIDEON Allopurinol (Allopurinol 100 Mg Tablet) 100 mg PO DAILY [facility] Last Admin: 08/20/24 08:00 Dose: 100 mg Documented By: JASON Amiodarone HCl (Amiodarone Hcl 200 Mg Tablet) 200 mg PO DAILY@1700 [facility] Last Admin: 08/19/24 17:27 Dose: 200 mg Documented By: ALLI Atorvastatin Calcium (Atorvastatin Calcium 40 Mg Tablet) 40 mg PO BEDTIME [facility] Last Admin: 08/19/24 21:01 Dose: 40 mg Documented By: GIDEON Calcium Carbonate (Calcium Carbonate 750 Mg Tab.Chew) 750 mg PO Q4H PRN PRN Reason: Heartburn Docusate Sodium (Docusate Sodium 100 Mg Capsule) 100 mg PO BID [facility] Last Admin: 08/20/24 08:01 Dose: 100 mg Documented By: JASON Finasteride (Finasteride 5 Mg Tablet) 5 mg PO DAILY [facility] Last Admin: 08/20/24 08:01 Dose: 5 mg Documented By: JASON Gabapentin (Gabapentin 600 Mg Tablet) 600 mg PO BEDTIME [facility] Last Admin: 08/19/24 21:01 Dose: 600 mg Documented By: GIDEON Albumin Human (Kedbumin 25 %) 100 mls @ 100 mls/hr IV Q6H [facility] Stop: 08/20/24 16:59 Last Infusion: 08/20/24 13:44 Dose: Infused Documented By: JASON Bumetanide 25 mg/ IV (Miscellaneous Supplies) 100 mls @ 1 mls/hr IVCONT .Q24H [facility] Last Admin: 08/20/24 13:26 Dose: 0.25 mg/hr, 1 mls/hr Documented By: JASON Aminocaproic Acid 5,000 mg/ (Sodium Chloride) 270 mls @ 35.1 mls/hr IV .Q7H42M [facility] Levothyroxine Sodium (Levothyroxine Sodium 88 Mcg Tablet) 88 mcg PO DAILY@0600 [facility] Last Admin: 08/20/24 05:18 Dose: 88 mcg Documented By: GIDEON Magnesium Hydroxide (Milk Of Magnesia 30 Ml Oral.Susp) 30 ml PO DAILY PRN PRN Reason: Constipation Last Admin: 08/19/24 08:13 Dose: 30 ml Documented By: ALLI Magnesium Oxide (Magnesium Oxide 400 Mg Tablet) 400 mg PO DAILY@1700 [facility] Last Admin: 08/19/24 17:27 Dose: 400 mg Documented By: ALLI Melatonin (Melatonin 3 Mg Tablet) 6 mg PO BEDTIME PRN PRN Reason: Insomnia Last Admin: 08/17/24 21:28 Dose: 6 mg Documented By: BOYD Ondansetron HCl (Ondansetron Hcl 4 Mg/2 Ml Vial) 4 mg IVPUSH Q8H PRN PRN Reason: Nausea Last Admin: 08/20/24 13:26 Dose: 4 mg Documented By: JASON Pantoprazole Sodium (Pantoprazole Sodium 40 Mg/10 Ml Vial) 40 mg IVPUSH BID@0630,1630 [facility] Last Admin: 08/20/24 05:18 Dose: 40 mg Documented By: IGDEON Polyethylene Glycol (Polyethylene Glycol 3350 17 Gm Powd.Pack) 17 gm PO BID [facility] Last Admin: 08/20/24 08:58 Dose: 17 gm Documented By: JASON Sodium Chloride (0.9 % Sodium Chloride Flush 3 Ml Syringe) 3 ml IVFLUSH QSHIFT [facility] Last Admin: 08/20/24 08:01 Dose: 3 ml Documented By: JASON Vitamin D (Cholecalciferol (Vitamin D3) 25 Mcg Tablet) 25 mcg PO DAILY [facility] Last Admin: 08/20/24 08:01 Dose: 25 mcg Documented By: JASON Labs 08/20/24 06:42 08/20/24 06:42 Labs: Laboratory Results - last 24 hr 08/19/24 08/20/24 08/20/24 14:17 06:42 13:55 MCV 92.6 MCH 31.0 MCHC 33.5 RDW 18.2 H Plt Count 212 MPV 10.7 Immature Gran % (Auto) 1.4 H Neut % (Auto) 80.4 H Lymph % (Auto) 8.7 L [place] % (Auto) 7.3 Eos % (Auto) 2.0 Baso % (Auto) 0.2 Lymph # (Auto) 0.8 L [place] # (Auto) 0.7 Eos # (Auto) 0.2 Baso # (Auto) 0.0 Abs Immat Gran (auto) 0.13 H Absolute Neuts (auto) 7.6 Absolute Nucleated RBC 0.000 Nucleated RBC % (auto) 0.0 Smear Path Review SEE NOTE PT 18.6 H D INR 1.6 H APTT 31.4 D Fibrinogen 439 Anion Gap 16 Estim Creat Clear Calc 20.3 Estimated GFR 23 Random Glucose 127 H Calcium 8.8 Blood Type A Positive Antibody Screen NEGATIVE Crossmatch See Detail Assessment and Plan (1) Renal failure, chronic: Status: Acute (2) Ascites: Status: Acute Assessment and Plan: 83-year-old male with a history of cardiac arrest, biventricular ICD, HFrEF, CKD3, paroxysmal atrial fibrillation on Xarelto, CAD, PVD, asthma, GERD, gout, KEVIN on CPAP who presents to the emergency department with increasing lower extremity edema associated with 20 lb weight gain found to have acute kidney injury LIBRA on CKD3 Possible cardiorenal Received IV Lasix in ED paracentesis : 3 liter fluid removed(08/16/24) ,also going for paracenetsis 3 liter on 08/19/24. recent ua (08/11) -negative ,lft seems fine ascites-unclear etiology ?cardiac. plan: hold lasix/sprinolactone since going for paracentesis and has libra on ckd.added albumin since going for paracentesis. Given Lokelma, spironolactone on hold due to hyperkalemia. nephrology following acute on chronic combined systolic and diastolic CHF echo from 2023 with EF of 46%, this admission 08/17/24:echo-Low normal LV ejection fraction 50-55% with restrictive filling pattern ,on torsemide 20 bid at baseline troponin elevated chronically,no chest pain ,EKG paced rhythm bnp elevated near baseline, no fluid on cxr, no respiratory symptoms at this time Seen by cardiology: Possible cardiorenal syndrome-added Bumex drip. Acute blood loss anemia-multifactorial: Episode of rectal bleed after straining from stool 08/19/24 No further rectal bleed Was oozing from the IV line yesterday In addition patient also has significant bruising at the paracentesis site. Will transfuse [address] abdomen? Hematoma at the paracentesis site. Seen by GI: Recommended to continue PPI, monitor CBC, ascites hold xarelto, also added Amicar. chronic hyponatremia : sodium seems similar range 131. Due to above ascites Appears chronic paroxysmal atrial fibrillation amiodarone, hold xarelto. peripheral neuropathy :continue gabapentin . Hypothyroidism:Continue hypothyroidism. HLD:continue statin . KEVIN :Continue CPAP. DVT prophylaxis - xarelto on hold due to anemia/bleeding. Above was discussed with the patient and his daughter in detail length that over prognosis is extremely very poor considering multiple comorbidities and possible advanced heart disease/worsening kidney disease and multiple comorbidities. Patient is leaning towards palliative management but wants to discussed with his daughter. Quality Stroke Does the patient have a stroke diagnosis?: No VTE Prior VTE?: No VTE Risk Level:: Medical - moderate - high VTE Device Contraindication: N/A - Device Ordered VTE Drug Contraindication: N/A - Med Ordered
--- NOTE | 2024-08-20 17:16 | W.MHC.ACPN ---
Advanced Care Planning Note Advanced Care Planning Note Time spent (in minutes): 30 Narrative: Due to multiple comorbidities including advanced heart disease and worsening kidney disease,ascitis as well as multiple comorbidities and overall generalized condition of the patient-discussed with patient daughter and patient-overall prognosis is extremely poor, patient is leaning towards palliative management but will discuss with his daughter for final decision Problems Discussed (1) Renal failure, chronic: (2) Ascites:
[2024-08-20] MEDS: Magnesium Oxide 400 MG TABLET PO (17:46)
[2024-08-20] MEDS: Amiodarone HCL 200 MG TABLET PO (17:47)
--- NOTE | 2024-08-20 18:42 | PM.PNNEP ---
Subjective Subjective Date of Service: 08/20/24 Interval history: Events noted. D/W hospitalist. Reviewed all data. Cardiology recommendations reviewed Physical Exam Vital Signs: Vital Signs: Last Vital Signs Temp 97.1 F 08/20/24 15:14 Pulse 60 08/20/24 15:14 Resp 18 08/20/24 15:14 BP 96/49 L 08/20/24 15:14 Pulse Ox 99 08/20/24 15:14 O2 Del Method Room Air 08/20/24 15:14 BMI result Body Mass Index 29.5 Const: General: no acute distress Orientation/consciousness: patient oriented x3 Eyes: EOM: EOMs intact bilaterally Neck: Neck: Yes supple Resp: Auscultation: diminished lung sounds Cardio: Rate: regular rate GI: Other: distended Neuro: General: patient oriented x3 and moves all extremities Objective Data Labs 08/20/24 06:42 08/20/24 06:42 Labs: Laboratory Results - last 24 hr 08/19/24 08/20/24 08/20/24 14:17 06:42 13:55 WBC 9.5 RBC 2.03 L D Hgb 6.3 L* Hct 18.8 L* MCV 92.6 MCH 31.0 MCHC 33.5 RDW 18.2 H Plt Count 212 MPV 10.7 Immature Gran % (Auto) 1.4 H Neut % (Auto) 80.4 H Lymph % (Auto) 8.7 L [place] % (Auto) 7.3 Eos % (Auto) 2.0 Baso % (Auto) 0.2 Lymph # (Auto) 0.8 L [place] # (Auto) 0.7 Eos # (Auto) 0.2 Baso # (Auto) 0.0 Abs Immat Gran (auto) 0.13 H Absolute Neuts (auto) 7.6 Absolute Nucleated RBC 0.000 Nucleated RBC % (auto) 0.0 Smear Path Review SEE NOTE PT 18.6 H D INR 1.6 H APTT 31.4 D Fibrinogen 439 Sodium 127 L Potassium 5.2 H Chloride 94 L Carbon Dioxide 22 Anion Gap 16 BUN 77 H Creatinine 2.69 H Estim Creat Clear Calc 20.3 Estimated GFR 23 Random Glucose 127 H Calcium 8.8 Blood Type A Positive Antibody Screen NEGATIVE Crossmatch See Detail Procedures Date of Service Date of Service: 03/07/25 Assessment & Plan Assessment and plan (1) Hyponatremia: Status: Acute (2) CKD stage 3b, 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: Status: Acute (3) Decompensated heart failure: Status: Acute Plan Renal function worse Continue current dose of diuretics May need Metalozone tomorrow Not a great candidate for renal replacement Concur with rest of current management Time Spent With Patient Time: . Progress Note: Quality Stroke Does the patient have a stroke diagnosis?: No
[2024-08-20] MEDS: Gabapentin 600 MG TABLET PO (19:47)
[2024-08-20] MEDS: Atorvastatin Calcium 40 MG TABLET PO (19:47)
[2024-08-20] MEDS: metOLazone 2.5 MG TABLET PO (19:56)
[2024-08-20 20:35] LABS: Hemoglobin 8.2 g/dl (14.0-18.0)
[2024-08-20] MEDS: SODIUM CHLORIDE 0.9% IV (22:26)
[2024-08-20] MEDS: AMINOCAPROIC ACID IV (22:26)
[2024-08-21] VITALS (8 sets, daily range): BP systolic 72–107; BP diastolic 28–62; PULSE 60–65; RESP 14–18; TEMP 36.2–36.4; O2SAT 96–100
[2024-08-21] MEDS: Midodrine HCl 10 MG TABLET PO ×2 (04:04→07:54)
[2024-08-21] MEDS: Levothyroxine Sodium 88 MCG TABLET PO (05:52)
[2024-08-21] MEDS: Pantoprazole Sodium 40 MG/10 ML VIAL IVPUSH ×2 (05:53→17:33)
[2024-08-21] MEDS: 0.9 % Sodium Chloride Flush 3 ML SYRINGE IVFLUSH ×2 (07:59→17:34)
[2024-08-21] MEDS: Albumin Human 25 % 100 ML IV (08:00)
[2024-08-21 09:01] LABS: Anion Gap 15 (12-20); Blood Urea Nitrogen 79 mg/dL (9-16); Calcium 8.6 mg/dL (8.4-10.2); Carbon Dioxide 22 mmol/L (22-29); Chloride 92 mmol/L (96-108); Creatinine Clr Calc Pharmacy 17.9; Estimated Glomerular Filt Rate 20; Glucose Random 110 mg/dL (60-115); Potassium 4.8 mmol/L (3.3-5.1); Sodium 124 mmol/L (135-145)
--- NOTE | 2024-08-21 10:54 | MHC.CM.PN ---
CM met with pt and his dtr, Phoebe, Pt. is now on comfort measures only. Phoebe is not able to care for pt. at home, as she is the only person to take care of him. Goal is for him to go to SNF for care. He has LTC insurance, CM advised dtr to review policy to see what it covers, and informed her that SNF may be private pay. We discussed ref. to Hospice, referral to [facility] to be in. Pt. has been saying he wants to go home, but dtr is really not able to care for him herself, and home is not accessible. CM to refer to SNF's. Phoebe works here and can be reached via [employer] text.
--- NOTE | 2024-08-21 11:33 | PM.PNCARD ---
Subjective Subjective Date of Service: 08/21/24 Principal diagnosis: Advanced heart failure Interval history: Patient has had poor urine output and this morning became hypotensive with systolic blood pressure in 70s. Feeling uncomfortable due to abdominal distension. Not having significant difficulty with breathing. Renal function is worse. Decision has been made for palliative care by patient with help of his daughter Review of Systems Constitutional: Reports lethargy, Reports poor appetite and Reports weakness Cardiovascular: Denies chest pain, Denies Loss of Consciousness, Denies palpitations and Reports dyspnea Respiratory: Reports dyspnea Gastrointestinal: Reports bloating, Reports early satiety and Reports nausea Reports weakness Endocrine: Denies palpitations Physical Exam Vital Signs: Last Vital Signs Temp 97.4 F 08/21/24 07:37 Pulse 60 08/21/24 07:37 Resp 18 08/21/24 07:37 BP 72/34 L 08/21/24 07:54 Pulse Ox 99 08/21/24 07:37 O2 Del Method Room Air 08/21/24 07:37 BMI result Body Mass Index 29.5 Const General: cooperative, alert, awake, ill appearing and tired appearing Nutritional Appearance: other (Frail elderly man) Orientation/consciousness: patient oriented x3 Neck Neck: Yes trachea midline, Yes supple and Yes JVD Resp Effort & Inspection: decreased respiratory effort Auscultation: diminished lung sounds Cardio Jugular venous distension: JVD Rate: regular rate Rhythm: regular rhythm Heart sounds: S1 normal heart sound present, S2 normal heart sound present, no click and no gallops GI Inspection: Yes distended Neuro General: patient oriented x3 Objective Labs and Meds 08/20/24 20:04 08/21/24 08:18 Lab results: Laboratory Results - last 24 hr 08/19/24 08/20/24 08/20/24 14:17 13:55 20:04 Hgb 8.2 L D Hct 24.0 L D Hold Purple Top PT 18.6 H D INR 1.6 H APTT 31.4 D Fibrinogen 439 Sodium Potassium Chloride Carbon Dioxide Anion Gap BUN Creatinine Estim Creat Clear Calc Estimated GFR Random Glucose Calcium Blood Type A Positive Antibody Screen NEGATIVE Crossmatch See Detail 08/21/24 08:18 Hgb Hct Hold Purple Top SEE NOTE PT INR APTT Fibrinogen Sodium 124 L Potassium 4.8 Chloride 92 L Carbon Dioxide 22 Anion Gap 15 BUN 79 H Creatinine 3.05 H Estim Creat Clear Calc 17.9 Estimated GFR 20 Random Glucose 110 Calcium 8.6 Blood Type Antibody Screen Crossmatch Progress Note: A&P Assessment and plan (1) Decompensated heart failure: Status: Acute Assessment and Plan: Decompensated congestive heart failure with progressive symptoms with congestive symptoms with significant right-sided heart failure symptoms as well as low blood pressure. Overall advanced heart failure with poor response to overall therapy. Patient was decided to pursue non interventional therapy. Diuretics has been withheld due to low blood pressure and poor response. Patient says he just wants to be comfortable and would like to have his ascites drained to make him more comfortable. I would discuss that this is probably going to be a recurrent issue related to both cirrhosis as well as heart failure. Question chronic drain can be put in. Overall prognosis is poor and I agree with decision for palliative care. Will sign of the case. Thank you for allowing me to partake in his care Time Spent With Patient Time: Total time managing care of this patient today ____ minutes. Progress Note: Quality Stroke Does the patient have a stroke diagnosis?: No Procedures Date of Service Date of Service: 08/21/24
--- NOTE | 2024-08-21 12:23 | P.PNIM_ITS ---
Subjective Subjective Date of Service: 08/21/24 Interval History: advanced heart failure ,worsening renal function hypotension Review of Systems has acities hypotension Physical Exam 2 Vital Signs: Vital Signs: Last Vital Signs Temp 97.4 F 08/21/24 07:37 Pulse 60 08/21/24 07:37 Resp 18 08/21/24 07:37 BP 72/34 L 08/21/24 07:54 Pulse Ox 99 08/21/24 07:37 O2 Del Method Room Air 08/21/24 07:37 BMI result Body Mass Index 29.5 Appearance: Alert.? Oriented X3. cvs: rrr, [id number] . res: air entry diminshed ,has few cracles at bases abd: soft ,nt, bs present,ascitis ext pulses present , no cyanosis ,has edema . neuro: axo3 , nonfocal. Objective Data Active Medications Acetaminophen (Acetaminophen 325 Mg Tablet) 650 mg PO Q6H PRN PRN Reason: Pain, Mild 1-3,fever,headache Last Admin: 08/19/24 22:24 Dose: 650 mg Documented By: GIDEON Acetaminophen (Acetaminophen 325 Mg Tablet) 650 mg PO Q4H PRN PRN Reason: Fever >/= 100, Pain, mild 1-3 Allopurinol (Allopurinol 100 Mg Tablet) 100 mg PO DAILY [facility] Last Admin: 08/21/24 12:02 Dose: Not Given Documented By: PHOENIX Non-Admin Reason: club concierge Amiodarone HCl (Amiodarone Hcl 200 Mg Tablet) 200 mg PO DAILY@1700 [facility] Last Admin: 08/20/24 17:47 Dose: 200 mg Documented By: HONORIO Atorvastatin Calcium (Atorvastatin Calcium 40 Mg Tablet) 40 mg PO BEDTIME [facility] Last Admin: 08/20/24 19:47 Dose: 40 mg Documented By: HONORIO Calcium Carbonate (Calcium Carbonate 750 Mg Tab.Chew) 750 mg PO Q4H PRN PRN Reason: Heartburn Docusate Sodium (Docusate Sodium 100 Mg Capsule) 100 mg PO BID [facility] Last Admin: 08/21/24 12:03 Dose: Not Given Documented By: PHOENIX Non-Admin Reason: club concierge Docusate Sodium (Docusate Sodium 100 Mg Capsule) 100 mg PO BEDTIME [facility] Finasteride (Finasteride 5 Mg Tablet) 5 mg PO DAILY [facility] Last Admin: 08/21/24 12:15 Dose: Not Given Documented By: PHOENIX Non-Admin Reason: club concierge Gabapentin (Gabapentin 600 Mg Tablet) 600 mg PO BEDTIME [facility] Last Admin: 08/20/24 19:47 Dose: 600 mg Documented By: HONORIO Aminocaproic Acid 5,000 mg/ (Sodium Chloride) 270 mls @ 35.1 mls/hr IV .Q7H42M [facility] Last Admin: 08/20/24 22:27 Dose: 650 mg/hr, 35.1 mls/hr Documented By: HONORIO Albumin Human (Kedbumin 25 %) 100 mls @ 100 mls/hr IV Q6H [facility] Stop: 08/22/24 03:59 Last Admin: 08/21/24 08:00 Dose: 100 mls/hr Documented By: PHOENIX Levothyroxine Sodium (Levothyroxine Sodium 88 Mcg Tablet) 88 mcg PO DAILY@0600 [facility] Last Admin: 08/21/24 05:52 Dose: 88 mcg Documented By: ELIANA Magnesium Hydroxide (Milk Of Magnesia 30 Ml Oral.Susp) 30 ml PO DAILY PRN PRN Reason: Constipation Last Admin: 08/19/24 08:13 Dose: 30 ml Documented By: ALLI Magnesium Oxide (Magnesium Oxide 400 Mg Tablet) 400 mg PO DAILY@1700 [facility] Last Admin: 08/20/24 17:46 Dose: 400 mg Documented By: HONORIO Melatonin (Melatonin 3 Mg Tablet) 6 mg PO BEDTIME PRN PRN Reason: Insomnia Last Admin: 08/17/24 21:28 Dose: 6 mg Documented By: BOYD Midodrine (Midodrine Hcl 10 Mg Tablet) 10 mg PO TIDWM [facility] Last Admin: 08/21/24 12:15 Dose: Not Given Documented By: PHOENIX Non-Admin Reason: club concierge Morphine Sulfate (Morphine Sulfate Immed Release 15 Mg Tablet) 15 mg PO Q4H PRN PRN Reason: Breakthrough Pain Ondansetron HCl (Ondansetron Hcl 4 Mg/2 Ml Vial) 4 mg IVPUSH Q8H PRN PRN Reason: Nausea Last Admin: 08/20/24 13:26 Dose: 4 mg Documented By: JASON Ondansetron HCl (Ondansetron Odt 4 Mg Tab.Rapdis) 4 mg TRANSLINGU Q8H PRN PRN Reason: Nausea and Vomiting Pantoprazole Sodium (Pantoprazole Sodium 40 Mg/10 Ml Vial) 40 mg IVPUSH BID@0630,1630 [facility] Last Admin: 08/21/24 05:53 Dose: 40 mg Documented By: ELIANA Polyethylene Glycol (Polyethylene Glycol 3350 17 Gm Powd.Pack) 17 gm PO BID [facility] Last Admin: 08/21/24 12:03 Dose: Not Given Documented By: PHOENIX Non-Admin Reason: club concierge Sodium Chloride (0.9 % Sodium Chloride Flush 3 Ml Syringe) 3 ml IVFLUSH QSHIFT [facility] Last Admin: 08/21/24 07:59 Dose: 3 ml Documented By: PHOENIX Vitamin D (Cholecalciferol (Vitamin D3) 25 Mcg Tablet) 25 mcg PO DAILY [facility] Last Admin: 08/21/24 12:02 Dose: Not Given Documented By: PHOENIX Non-Admin Reason: club concierge Labs 08/20/24 20:04 08/21/24 08:18 Labs: Laboratory Results - last 24 hr 08/19/24 08/20/24 08/21/24 14:17 13:55 08:18 Hold Purple Top SEE NOTE PT 18.6 H D INR 1.6 H APTT 31.4 D Fibrinogen 439 Anion Gap 15 Estim Creat Clear Calc 17.9 Estimated GFR 20 Random Glucose 110 Calcium 8.6 Blood Type A Positive Antibody Screen NEGATIVE Crossmatch See Detail Assessment and Plan (1) Decompensated heart failure: Status: Acute Assessment and Plan: 83-year-old male with a history of cardiac arrest, biventricular ICD, HFrEF, CKD3, paroxysmal atrial fibrillation on Xarelto, CAD, PVD, asthma, GERD, gout, KEVIN on CPAP who presents to the emergency department with increasing lower extremity edema associated with 20 lb weight gain found to have acute kidney injury Patient admitted 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 Due to borderline to hypotensive range blood pressure as well as worsening renal failure and electrolytic abnormalities as well as advanced cardiac disease- Discussed with patient and his daughter in detail length-that overall prognosis is extremely very poor considering multiple comorbidities and possible advanced heart disease/worsening kidney disease and multiple comorbidities. They both decided for comfort measures. Hospice evaluation added. Quality Stroke Does the patient have a stroke diagnosis?: No VTE Prior VTE?: No VTE Risk Level:: Medical - moderate - high VTE Device Contraindication: N/A - Device Ordered VTE Drug Contraindication: N/A - Med Ordered
--- NOTE | 2024-08-21 12:45 | W.MHC.ACPN ---
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 Due to borderline to hypotensive range blood pressure as well as worsening renal failure and electrolytic abnormalities as well as advanced cardiac disease- Discussed with patient and his daughter in detail length-that overall prognosis is extremely very poor considering multiple comorbidities and possible advanced heart disease/worsening kidney disease and multiple comorbidities. They both decided for comfort measures. Hospice evaluation added. total time spent with patient/his daughter -30 min . Problems Discussed (1) Decompensated heart failure:
[2024-08-21] MEDS: Amiodarone HCL 200 MG TABLET PO (17:37)
[2024-08-21] MEDS: ondansetron HCL 4 MG/2 ML VIAL IVPUSH (19:51)
[2024-08-22 04:06] VITALS: BP 95/53; PULSE 62; RESP 17; TEMP 36; O2SAT 100
[2024-08-22] MEDS: Pantoprazole Sodium 40 MG/10 ML VIAL IVPUSH (04:54)
[2024-08-22] MEDS: Levothyroxine Sodium 88 MCG TABLET PO (04:54)
[2024-08-22 05:55] VITALS: BMI 29.8
[2024-08-22 08:00] VITALS: BP 102/56; PULSE 63; RESP 16; TEMP 36.3; O2SAT 100
[2024-08-22] MEDS: Midodrine HCl 10 MG TABLET PO ×3 (09:16→18:37)
[2024-08-22] MEDS: Omeprazole 20 MG CAPSULE.DR PO ×2 (09:17→18:38)
[2024-08-22] MEDS: Finasteride 5 MG TABLET PO (09:17)
[2024-08-22] MEDS: allopurinoL 100 MG TABLET PO (09:17)
[2024-08-22] MEDS: 0.9 % Sodium Chloride Flush 3 ML SYRINGE IVFLUSH ×2 (09:21→15:35)
[2024-08-22] MEDS: ondansetron HCL 4 MG/2 ML VIAL IVPUSH ×2 (11:42→15:35)
[2024-08-22 11:52] VITALS: BP 96/47; PULSE 59; RESP 16; TEMP 36.3; O2SAT 98
[2024-08-22 15:27] VITALS: BP 95/54; PULSE 60; RESP 18; TEMP 36.5; O2SAT 98
--- NOTE | 2024-08-22 15:59 | HO.PM.IMPN ---
Subjective Subjective Date of Service: 08/22/24 Interval History: advanced heart failure ,worsening renal function Review of Systems feels comfortable Physical Exam Vital Signs: Vital Signs: Last Vital Signs Temp 97.7 F 08/22/24 15:27 Pulse 60 08/22/24 15:27 Resp 18 08/22/24 15:27 BP 95/54 L 08/22/24 15:27 Pulse Ox 98 08/22/24 15:27 O2 Del Method Room Air 08/22/24 15:27 BMI result Body Mass Index 29.8 comfortable awake, conversive cvs: rrr, [id number] . res: air entry diminshed ,has few cracles at bases abd: soft ,nt, bs present,ascitis ext pulses present , no cyanosis ,has edema Objective Data Active Medications Acetaminophen (Acetaminophen 325 Mg Tablet) 650 mg PO Q6H PRN PRN Reason: Pain, Mild 1-3,fever,headache Last Admin: 08/19/24 22:24 Dose: 650 mg Documented By: GIDEON Acetaminophen (Acetaminophen 325 Mg Tablet) 650 mg PO Q4H PRN PRN Reason: Fever >/= 100, Pain, mild 1-3 Allopurinol (Allopurinol 100 Mg Tablet) 100 mg PO DAILY [facility] Last Admin: 08/22/24 09:17 Dose: 100 mg Documented By: PHOENIX Amiodarone HCl (Amiodarone Hcl 200 Mg Tablet) 200 mg PO DAILY@1700 [facility] Last Admin: 08/21/24 17:37 Dose: 200 mg Documented By: PHOENIX Atorvastatin Calcium (Atorvastatin Calcium 40 Mg Tablet) 40 mg PO BEDTIME [facility] Last Admin: 08/20/24 19:47 Dose: 40 mg Documented By: HONORIO Calcium Carbonate (Calcium Carbonate 750 Mg Tab.Chew) 750 mg PO Q4H PRN PRN Reason: Heartburn Docusate Sodium (Docusate Sodium 100 Mg Capsule) 100 mg PO BID [facility] Last Admin: 08/21/24 12:03 Dose: Not Given Documented By: PHOENIX Non-Admin Reason: 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 Docusate Sodium (Docusate Sodium 100 Mg Capsule) 100 mg PO BEDTIME [facility] Last Admin: 08/21/24 21:14 Dose: Not Given Documented By: ELIANA Non-Admin Reason: pt has had multiple bm's and refused Finasteride (Finasteride 5 Mg Tablet) 5 mg PO DAILY [facility] Last Admin: 08/22/24 09:17 Dose: 5 mg Documented By: PHOENIX Gabapentin (Gabapentin 600 Mg Tablet) 600 mg PO BEDTIME [facility] Last Admin: 08/22/24 00:57 Dose: Not Given Documented By: ELIANA Non-Admin Reason: Patient Refused Levothyroxine Sodium (Levothyroxine Sodium 88 Mcg Tablet) 88 mcg PO DAILY@0600 [facility] Last Admin: 08/22/24 04:54 Dose: 88 mcg Documented By: ELIANA Magnesium Hydroxide (Milk Of Magnesia 30 Ml Oral.Susp) 30 ml PO DAILY PRN PRN Reason: Constipation Last Admin: 08/19/24 08:13 Dose: 30 ml Documented By: ALLI Magnesium Oxide (Magnesium Oxide 400 Mg Tablet) 400 mg PO DAILY@1700 [facility] Last Admin: 08/20/24 17:46 Dose: 400 mg Documented By: HONORIO Melatonin (Melatonin 3 Mg Tablet) 6 mg PO BEDTIME PRN PRN Reason: Insomnia Last Admin: 08/17/24 21:28 Dose: 6 mg Documented By: BOYD Midodrine (Midodrine Hcl 10 Mg Tablet) 10 mg PO TIDWM [facility] Last Admin: 08/22/24 14:58 Dose: 10 mg Documented By: PHOENIX Morphine Sulfate (Morphine Sulfate Immed Release 15 Mg Tablet) 15 mg PO Q4H PRN PRN Reason: Breakthrough Pain Omeprazole (Omeprazole 20 Mg Capsule.) 20 mg PO BID@0630,1630 [facility] Last Admin: 08/22/24 09:17 Dose: 20 mg Documented By: PHOENIX Ondansetron HCl (Ondansetron Hcl 4 Mg/2 Ml Vial) 4 mg IVPUSH Q4H PRN PRN Reason: Nausea Last Admin: 08/22/24 15:35 Dose: 4 mg Documented By: PHOENIX Polyethylene Glycol (Polyethylene Glycol 3350 17 Gm Powd.Pack) 17 gm PO BID [facility] Last Admin: 08/22/24 10:23 Dose: Not Given Documented By: PHOENIX Non-Admin Reason: Patient Refused Sodium Chloride (0.9 % Sodium Chloride Flush 3 Ml Syringe) 3 ml IVFLUSH QSHIFT [facility] Last Admin: 08/22/24 15:35 Dose: 3 ml Documented By: PHOENIX Vitamin D (Cholecalciferol (Vitamin D3) 25 Mcg Tablet) 25 mcg PO DAILY [facility] Last Admin: 08/21/24 12:02 Dose: Not Given Documented By: PHOENIX Non-Admin Reason: sample stitcher Labs 08/20/24 20:04 08/21/24 08:18 Assessment and Plan (1) Decompensated heart failure: Status: Acute (2) CKD stage 3b, 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: Status: Acute Assessment and Plan: 83-year-old male with a history of cardiac arrest, biventricular ICD, HFrEF, CKD3, paroxysmal atrial fibrillation on Xarelto, CAD, PVD, asthma, GERD, gout, KEVIN on CPAP who presents to the emergency department with increasing lower extremity edema associated with 20 lb weight gain found to have acute kidney injury Patient admitted 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 Due to borderline to hypotensive range blood pressure as well as worsening renal failure and electrolytic abnormalities as well as advanced cardiac disease- Discussed with patient and his daughter in detail length-that overall prognosis is extremely very poor considering multiple comorbidities and possible advanced heart disease/worsening kidney disease and multiple comorbidities. They both decided for comfort measures. Hospice evaluation added. Quality Stroke Does the patient have a stroke diagnosis?: No VTE Prior VTE?: No VTE Risk Level:: Medical - moderate - high VTE Device Contraindication: N/A - Device Ordered VTE Drug Contraindication: N/A - Med Ordered
[2024-08-22] MEDS: Amiodarone HCL 200 MG TABLET PO (18:38)
[2024-08-22 19:32] VITALS: BP 92/51; PULSE 60; RESP 20; TEMP 37; O2SAT 94
[2024-08-22] MEDS: Docusate Sodium 100 MG CAPSULE PO (19:39)
[2024-08-22] MEDS: Gabapentin 600 MG TABLET PO (19:39)
[2024-08-22] MEDS: polyethylene glycoL 3350 17 GM POWD.PACK PO (19:39)
[2024-08-23] VITALS (12 sets, daily range): BP systolic 87–115; BP diastolic 41–54; PULSE 60–63; RESP 14–98; TEMP 36.1–37.6; O2SAT 95–100
[2024-08-23] MEDS: 0.9 % Sodium Chloride Flush 3 ML SYRINGE IVFLUSH ×4 (01:14→20:09)
[2024-08-23] MEDS: Omeprazole 20 MG CAPSULE.DR PO ×2 (06:56→16:42)
[2024-08-23] MEDS: Levothyroxine Sodium 88 MCG TABLET PO (06:56)
[2024-08-23] MEDS: allopurinoL 100 MG TABLET PO (08:53)
[2024-08-23] MEDS: Midodrine HCl 10 MG TABLET PO ×3 (08:53→16:42)
[2024-08-23] MEDS: polyethylene glycoL 3350 17 GM POWD.PACK PO (08:53)
[2024-08-23] MEDS: Finasteride 5 MG TABLET PO (08:53)
[2024-08-23] MEDS: ondansetron HCL 4 MG/2 ML VIAL IVPUSH ×3 (08:54→18:29)
[2024-08-23] MEDS: Albumin Human 25 % 100 ML IV ×3 (09:08→20:10)
--- NOTE | 2024-08-23 11:25 | MHC.CM.PN ---
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
--- NOTE | 2024-08-23 11:35 | P.PNNP_ITS ---
Subjective Subjective Date of Service: 08/23/24 Principal diagnosis: Advanced heart failure Interval history: advanced heart failure ,worsening renal function Physical Exam 2 Vital Signs: Vital Signs: Last Vital Signs Temp 97.3 F 08/23/24 11:14 Pulse 60 08/23/24 11:14 Resp 14 08/23/24 11:14 BP 100/50 L 08/23/24 11:14 Pulse Ox 100 08/23/24 11:14 O2 Del Method Room Air 08/23/24 11:14 BMI result Body Mass Index 29.8 Const: General: no acute distress Orientation/consciousness: patient oriented x3 Eyes: EOM: EOMs intact bilaterally Neck: Neck: Yes supple Resp: Auscultation: diminished lung sounds Cardio: Rate: regular rate GI: Other: distended Palpation (GI): Soft to palpation Neuro: General: patient oriented x3 and moves all extremities Objective Data Labs 08/20/24 20:04 08/21/24 08:18 Procedures Date of Service Date of Service: 08/23/24 Assessment & Plan Assessment and plan (1) Hyponatremia: Status: Acute (2) CKD stage 3b, 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: Status: Acute (3) Decompensated heart failure: Status: Acute Plan Renal function worse Continue current dose of diuretics Would not use metolazone due to worsening hyponatremia. Not a great candidate for renal replacement Remains persistently hypotensive. Keep on midodrine. Overall prognosis is guarded Goals of therapy needs to be discussed with the patient and family Concur with rest of current management Time Spent With Patient Time: Total time managing care of this patient today ____ minutes. Progress Note: Quality Stroke Does the patient have a stroke diagnosis?: No
[2024-08-23] MEDS: Lidocaine HCl 1 % MPF 5 ML VIAL SUBCUT (16:39)
[2024-08-23] MEDS: Amiodarone HCL 200 MG TABLET PO (16:42)
--- NOTE | 2024-08-23 17:16 | HO.PM.IMPN ---
Subjective Subjective Date of Service: 08/23/24 Interval History: ascitis Review of Systems no new c/o Physical Exam Vital Signs: Vital Signs: Last Vital Signs Temp 97.3 F 08/23/24 17:01 Pulse 60 08/23/24 17:01 Resp 14 08/23/24 17:01 BP 87/41 L 08/23/24 17:01 Pulse Ox 99 08/23/24 17:01 O2 Del Method Room Air 08/23/24 17:01 BMI result Body Mass Index 29.8 comfortable awake, conversive cvs: rrr, [id number] . res: air entry diminshed. abd: soft ,nt, bs present,ascitis ext pulses present , no cyanosis ,has edema Objective Data Active Medications Acetaminophen (Acetaminophen 325 Mg Tablet) 650 mg PO Q6H PRN PRN Reason: Pain, Mild 1-3,fever,headache Last Admin: 08/19/24 22:24 Dose: 650 mg Documented By: GIDEON Acetaminophen (Acetaminophen 325 Mg Tablet) 650 mg PO Q4H PRN PRN Reason: Fever >/= 100, Pain, mild 1-3 Allopurinol (Allopurinol 100 Mg Tablet) 100 mg PO DAILY [facility] Last Admin: 08/23/24 08:53 Dose: 100 mg Documented By: ESME Amiodarone HCl (Amiodarone Hcl 200 Mg Tablet) 200 mg PO DAILY@1700 [facility] Last Admin: 08/23/24 16:42 Dose: 200 mg Documented By: ESME Atorvastatin Calcium (Atorvastatin Calcium 40 Mg Tablet) 40 mg PO BEDTIME [facility] Last Admin: 08/20/24 19:47 Dose: 40 mg Documented By: HONORIO Calcium Carbonate (Calcium Carbonate 750 Mg Tab.Chew) 750 mg PO Q4H PRN PRN Reason: Heartburn Docusate Sodium (Docusate Sodium 100 Mg Capsule) 100 mg PO BID [facility] Last Admin: 08/21/24 12:03 Dose: Not Given Documented By: PHOENIX 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 Docusate Sodium (Docusate Sodium 100 Mg Capsule) 100 mg PO BEDTIME [facility] Last Admin: 08/22/24 19:39 Dose: 100 mg Documented By: HONORIO Finasteride (Finasteride 5 Mg Tablet) 5 mg PO DAILY [facility] Last Admin: 08/23/24 08:53 Dose: 5 mg Documented By: ESME Gabapentin (Gabapentin 600 Mg Tablet) 600 mg PO BEDTIME [facility] Last Admin: 08/22/24 19:39 Dose: 600 mg Documented By: HONORIO Albumin Human (Kedbumin 25 %) 100 mls @ 100 mls/hr IV Q6H [facility] Stop: 08/24/24 03:59 Last Infusion: 08/23/24 16:26 Dose: Infused Documented By: ESME Levothyroxine Sodium (Levothyroxine Sodium 88 Mcg Tablet) 88 mcg PO DAILY@0600 [facility] Last Admin: 08/23/24 06:56 Dose: 88 mcg Documented By: LUKE Magnesium Hydroxide (Milk Of Magnesia 30 Ml Oral.Susp) 30 ml PO DAILY PRN PRN Reason: Constipation Last Admin: 08/19/24 08:13 Dose: 30 ml Documented By: ALLI Magnesium Oxide (Magnesium Oxide 400 Mg Tablet) 400 mg PO DAILY@1700 [facility] Last Admin: 08/20/24 17:46 Dose: 400 mg Documented By: HONORIO Melatonin (Melatonin 3 Mg Tablet) 6 mg PO BEDTIME PRN PRN Reason: Insomnia Last Admin: 08/17/24 21:28 Dose: 6 mg Documented By: BOYD Midodrine (Midodrine Hcl 10 Mg Tablet) 10 mg PO TIDWM [facility] Last Admin: 08/23/24 16:42 Dose: 10 mg Documented By: ESME Morphine Sulfate (Morphine Sulfate Immed Release 15 Mg Tablet) 15 mg PO Q4H PRN PRN Reason: Breakthrough Pain Omeprazole (Omeprazole 20 Mg Capsule.) 20 mg PO BID@0630,1630 [facility] Last Admin: 08/23/24 16:42 Dose: 20 mg Documented By: ESME Ondansetron HCl (Ondansetron Hcl 4 Mg/2 Ml Vial) 4 mg IVPUSH Q4H PRN PRN Reason: Nausea Last Admin: 08/23/24 14:01 Dose: 4 mg Documented By: ESME Polyethylene Glycol (Polyethylene Glycol 3350 17 Gm Powd.Pack) 17 gm PO BID [facility] Last Admin: 08/23/24 08:53 Dose: 17 gm Documented By: ESME Sodium Chloride (0.9 % Sodium Chloride Flush 3 Ml Syringe) 3 ml IVFLUSH QSHIFT [facility] Last Admin: 08/23/24 08:53 Dose: 3 ml Documented By: ESME Vitamin D (Cholecalciferol (Vitamin D3) 25 Mcg Tablet) 25 mcg PO DAILY [facility] Last Admin: 08/21/24 12:02 Dose: Not Given Documented By: PHOENIX 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 Labs 08/20/24 20:04 08/21/24 08:18 Assessment and Plan (1) Decompensated heart failure: Status: Acute (2) CKD stage 3b, 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: Status: Acute Assessment and Plan: 83-year-old male with a history of cardiac arrest, biventricular ICD, HFrEF, CKD3, paroxysmal atrial fibrillation on Xarelto, CAD, PVD, asthma, GERD, gout, KEVIN on CPAP who presents to the emergency department with increasing lower extremity edema associated with 20 lb weight gain found to have acute kidney injury Patient admitted 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 Due to borderline to hypotensive range blood pressure as well as worsening renal failure and electrolytic abnormalities as well as advanced cardiac disease- Discussed with patient and his daughter in detail length-that overall prognosis is extremely very poor considering multiple comorbidities and possible advanced heart disease/worsening kidney disease and multiple comorbidities. They both decided for comfort measures. Hospice evaluation . patient family requested for pigtail catheter -IR is aware-going for pigtail today,added albumin/midodrine. Quality Stroke Does the patient have a stroke diagnosis?: No VTE Prior VTE?: No VTE Risk Level:: Medical - moderate - high VTE Device Contraindication: N/A - Device Ordered VTE Drug Contraindication: N/A - Med Ordered
[2024-08-23] MEDS: Midodrine HCl 2.5 MG TABLET PO (17:41)
[2024-08-23] MEDS: Gabapentin 600 MG TABLET PO (20:09)
[2024-08-23] MEDS: Melatonin 3 MG TABLET 6 MG PO (20:11)
[2024-08-23] MEDS: LORazepam 2 MG/ML VIAL 0.5 MG IVPUSH (20:21)
[2024-08-24] VITALS (8 sets, daily range): BP systolic 84–104; BP diastolic 43–55; PULSE 56–70; RESP 12–20; TEMP 36–36.9; O2SAT 96–99; BMI 28.6
[2024-08-24] MEDS: ondansetron HCL 4 MG/2 ML VIAL IVPUSH ×4 (03:53→20:40)
[2024-08-24] MEDS: LORazepam 2 MG/ML VIAL 0.5 MG IVPUSH ×2 (03:53→20:28)
[2024-08-24] MEDS: Levothyroxine Sodium 88 MCG TABLET PO (03:55)
[2024-08-24] MEDS: Omeprazole 20 MG CAPSULE.DR PO ×2 (03:55→16:44)
[2024-08-24] MEDS: Albumin Human 25 % 100 ML IV (03:56)
[2024-08-24] MEDS: Midodrine HCl 10 MG TABLET PO ×2 (08:44→12:47)
[2024-08-24] MEDS: allopurinoL 100 MG TABLET PO (08:44)
[2024-08-24] MEDS: Finasteride 5 MG TABLET PO (08:44)
[2024-08-24] MEDS: 0.9 % Sodium Chloride Flush 3 ML SYRINGE IVFLUSH ×3 (10:44→20:29)
--- NOTE | 2024-08-24 11:34 | MHC.CM.PN ---
Addendum entered by Ana Paula Murray RN 08/24/24 15:13: CM MET W/PT'S DTR/HCP QASIM, PER CONVERSATION [facility] IS PREFERRED, [facility] IS PREFERRED IF [facility] DOES NOT HAVE A BED, CM CONTACTED [facility] AND WAS INSTRUCTED TO EMAIL HETAL ACOSTA AT [email or web address], CM AWAITING RESPONSE. Original Note: EMR REVIEWED, PT A HOSPICE SNF BED SEARCH, NO CURRENT OFFERS AND REFERRAL EXPANDED, CM CONTACTED [facility] IN [place] HOWEVER THEY HAVE NO AVAILABLE BEDS (DAILY RATE $495), CM ALSO CONTACTED THE [facility] IN [place] AT [phone] PRIOR TO THIS NOTE, NO ANSWER AND DETAILED MESSAGE LEFT, PT'S FAMILY HAS LIST OF FACILITIES SHOWING INTEREST HOWEVER NO CONCRETE BED OFFER AT THIS TIME, CM WILL CONT TO FOLLOW DC NEEDS.
--- NOTE | 2024-08-24 13:53 | HO.PM.IMPN ---
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 Review of Systems Comfortable Physical Exam Vital Signs: Vital Signs: Last Vital Signs Temp 97.1 F 08/24/24 12:00 Pulse 60 08/24/24 12:00 Resp 18 08/24/24 12:00 BP 85/47 L 08/24/24 12:00 Pulse Ox 96 08/24/24 12:00 O2 Del Method Room Air 08/24/24 12:00 BMI result Body Mass Index 28.6 Awake and comfortable Objective Data Active Medications Acetaminophen (Acetaminophen 325 Mg Tablet) 650 mg PO Q6H PRN PRN Reason: Pain, Mild 1-3,fever,headache Last Admin: 08/19/24 22:24 Dose: 650 mg Documented By: GIDEON Acetaminophen (Acetaminophen 325 Mg Tablet) 650 mg PO Q4H PRN PRN Reason: Fever >/= 100, Pain, mild 1-3 Allopurinol (Allopurinol 100 Mg Tablet) 100 mg PO DAILY [facility] Last Admin: 08/24/24 08:44 Dose: 100 mg Documented By: ZAN Amiodarone HCl (Amiodarone Hcl 200 Mg Tablet) 200 mg PO DAILY@1700 [facility] Last Admin: 08/23/24 16:42 Dose: 200 mg Documented By: ESME Atorvastatin Calcium (Atorvastatin Calcium 40 Mg Tablet) 40 mg PO BEDTIME [facility] Last Admin: 08/20/24 19:47 Dose: 40 mg Documented By: HONORIO Calcium Carbonate (Calcium Carbonate 750 Mg Tab.Chew) 750 mg PO Q4H PRN PRN Reason: Heartburn Docusate Sodium (Docusate Sodium 100 Mg Capsule) 100 mg PO BID [facility] Last Admin: 08/21/24 12:03 Dose: Not Given Documented By: PHOENIX 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 Docusate Sodium (Docusate Sodium 100 Mg Capsule) 100 mg PO BEDTIME [facility] Last Admin: 08/23/24 20:09 Dose: Not Given Documented By: ABELARDO Non-Admin Reason: Patient Refused Finasteride (Finasteride 5 Mg Tablet) 5 mg PO DAILY [facility] Last Admin: 08/24/24 08:44 Dose: 5 mg Documented By: ZAN Gabapentin (Gabapentin 600 Mg Tablet) 600 mg PO BEDTIME [facility] Last Admin: 08/23/24 20:09 Dose: 600 mg Documented By: ABELARDO Levothyroxine Sodium (Levothyroxine Sodium 88 Mcg Tablet) 88 mcg PO DAILY@0600 [facility] Last Admin: 08/24/24 03:55 Dose: 88 mcg Documented By: ABELARDO Lorazepam (Lorazepam 2 Mg/Ml Vial) 0.5 mg IVPUSH Q6H PRN PRN Reason: anxiety/restlessness Last Admin: 08/24/24 03:53 Dose: 0.5 mg Documented By: ABELARDO Magnesium Hydroxide (Milk Of Magnesia 30 Ml Oral.Susp) 30 ml PO DAILY PRN PRN Reason: Constipation Last Admin: 08/19/24 08:13 Dose: 30 ml Documented By: ALLI Magnesium Oxide (Magnesium Oxide 400 Mg Tablet) 400 mg PO DAILY@1700 [facility] Last Admin: 08/20/24 17:46 Dose: 400 mg Documented By: HONORIO Melatonin (Melatonin 3 Mg Tablet) 6 mg PO BEDTIME PRN PRN Reason: Insomnia Last Admin: 08/23/24 20:11 Dose: 6 mg Documented By: ABELARDO Midodrine (Midodrine Hcl 10 Mg Tablet) 10 mg PO TIDWM [facility] Last Admin: 08/24/24 12:47 Dose: 10 mg Documented By: ZAN Morphine Sulfate (Morphine Sulfate Immed Release 15 Mg Tablet) 15 mg PO Q4H PRN PRN Reason: Breakthrough Pain Omeprazole (Omeprazole 20 Mg Capsule.) 20 mg PO BID@0630,1630 [facility] Last Admin: 08/24/24 03:55 Dose: 20 mg Documented By: ABELARDO Ondansetron HCl (Ondansetron Hcl 4 Mg/2 Ml Vial) 4 mg IVPUSH Q4H PRN PRN Reason: Nausea Last Admin: 08/24/24 10:29 Dose: 4 mg Documented By: ZAN Polyethylene Glycol (Polyethylene Glycol 3350 17 Gm Powd.Pack) 17 gm PO BID [facility] Last Admin: 08/24/24 08:50 Dose: Not Given Documented By: ZAN Non-Admin Reason: Patient Refused Sodium Chloride (0.9 % Sodium Chloride Flush 3 Ml Syringe) 3 ml IVFLUSH QSHIFT [facility] Last Admin: 08/24/24 10:44 Dose: 3 ml Documented By: ZAN Vitamin D (Cholecalciferol (Vitamin D3) 25 Mcg Tablet) 25 mcg PO DAILY [facility] Last Admin: 08/21/24 12:02 Dose: Not Given Documented By: PHOENIX 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 Labs 08/20/24 20:04 08/21/24 08:18 Assessment and Plan (1) Decompensated heart failure: Status: Acute (2) CKD stage 3b, 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: Status: Acute Assessment and Plan: 83-year-old male with a history of cardiac arrest, biventricular ICD, HFrEF, CKD3, paroxysmal atrial fibrillation on Xarelto, CAD, PVD, asthma, GERD, gout, KEVIN on CPAP who presents to the emergency department with increasing lower extremity edema associated with 20 lb weight gain found to have acute kidney injury Patient admitted 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 Due to borderline to hypotensive range blood pressure as well as worsening renal failure and electrolytic abnormalities as well as advanced cardiac disease- Discussed with patient and his daughter in detail length-that overall prognosis is extremely very poor considering multiple comorbidities and possible advanced heart disease/worsening kidney disease and multiple comorbidities. They both decided for comfort measures. Hospice evaluation . patient family requested for pigtail catheter -IR is aware-going for pigtail today,added albumin/midodrine. He had catheter placed yesterday which leaked and needs to be replaced today. Quality Stroke Does the patient have a stroke diagnosis?: No VTE Prior VTE?: No VTE Risk Level:: Medical - moderate - high VTE Device Contraindication: N/A - Device Ordered VTE Drug Contraindication: N/A - Med Ordered
--- NOTE | 2024-08-24 13:54 | P.CDIM_ITS ---
PROVIDER RESPONSE TEXT: To clarify, the appropriate diagnosis supported by the clinical indicators: Other (explain): ckd 4with cardiorenal QUERY TEXT: PHYSICIAN'S DOCUMENTATION REQUEST Date of Query: 08/24/2024 01:04 PM EDT Patient Name: Sherman Hurtado Admit Date: 08/16/2024 Dear Nicole Blas MD, A review of the medical record indicates additional documentation may be needed. Please review below and update the documentation accordingly. Clinical Indicators: PMH: CKD stage 3 Per Hospitalist Progress note : worsening renal failure BUN/Creatine on 08/16/24: 80/1.81 BUN/Creatinine on 08/21/24: 79/3.05 Est GFR on 08/16/24: 36 Est GFR on 08/21/24: 20 Please clarify which of the following accurately represents the patient's renal status: CKD, stage 4 ESRD - CKD V now requiring permanent dialysis and/or transplant Other (explain) Clinically unable to determine (explain) Thank you, Christine Mccallum RN Use of terms such as suspected, likely, concern for, or probable (associated with a specific diagnosi s that is being evaluated, monitored, or treated as if it exists) are acceptable and can be coded in the inpatient se tting, when documented at the time of discharge. Please use your independent medical judgment in providing your response. THIS QUERY IS PART OF THE PERMANENT MEDICAL RECORD
[2024-08-24] MEDS: Lidocaine HCl 1 % MPF 5 ML VIAL 10 ML SUBCUT (15:09)
[2024-08-24] MEDS: Gabapentin 600 MG TABLET PO (20:28)
[2024-08-25] VITALS (8 sets, daily range): PULSE 60–69; RESP 15–18; O2SAT 94; BMI 28.6
[2024-08-25] MEDS: ondansetron HCL 4 MG/2 ML VIAL IVPUSH ×4 (01:43→17:43)
[2024-08-25] MEDS: LORazepam 2 MG/ML VIAL 0.5 MG IVPUSH ×2 (02:56→21:53)
[2024-08-25] MEDS: Omeprazole 20 MG CAPSULE.DR PO ×2 (05:38→16:28)
[2024-08-25] MEDS: Levothyroxine Sodium 88 MCG TABLET PO (05:38)
[2024-08-25] MEDS: Finasteride 5 MG TABLET PO (09:25)
[2024-08-25] MEDS: allopurinoL 100 MG TABLET PO (09:26)
--- NOTE | 2024-08-25 12:01 | P.PNIM_ITS ---
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 Review of Systems Comfortable Physical Exam 2 Vital Signs: Vital Signs: Last Vital Signs Temp 96.8 F 08/24/24 15:48 Pulse 63 08/25/24 11:52 Resp 18 08/25/24 11:52 BP 94/55 L 08/24/24 15:48 Pulse Ox 99 08/24/24 15:48 O2 Del Method Room Air 08/24/24 15:48 BMI result Body Mass Index 28.6 Awake and comfortable Objective Data Active Medications Acetaminophen (Acetaminophen 325 Mg Tablet) 650 mg PO Q6H PRN PRN Reason: Pain, Mild 1-3,fever,headache Last Admin: 08/19/24 22:24 Dose: 650 mg Documented By: GIDEON Acetaminophen (Acetaminophen 325 Mg Tablet) 650 mg PO Q4H PRN PRN Reason: Fever >/= 100, Pain, mild 1-3 Allopurinol (Allopurinol 100 Mg Tablet) 100 mg PO DAILY [facility] Last Admin: 08/25/24 09:26 Dose: 100 mg Documented By: ZAN Amiodarone HCl (Amiodarone Hcl 200 Mg Tablet) 200 mg PO DAILY@1700 [facility] Last Admin: 08/24/24 16:52 Dose: Not Given Documented By: ZAN Non-Admin Reason: FIELD MAP EDITOR Calcium Carbonate (Calcium Carbonate 750 Mg Tab.Chew) 750 mg PO Q4H PRN PRN Reason: Heartburn Docusate Sodium (Docusate Sodium 100 Mg Capsule) 100 mg PO BEDTIME [facility] Last Admin: 08/24/24 20:28 Dose: Not Given Documented By: BOYD Non-Admin Reason: Patient Refused Finasteride (Finasteride 5 Mg Tablet) 5 mg PO DAILY [facility] Last Admin: 08/25/24 09:25 Dose: 5 mg Documented By: ZAN Gabapentin (Gabapentin 600 Mg Tablet) 600 mg PO BEDTIME [facility] Last Admin: 08/24/24 20:28 Dose: 600 mg Documented By: BOYD Levothyroxine Sodium (Levothyroxine Sodium 88 Mcg Tablet) 88 mcg PO DAILY@0600 [facility] Last Admin: 08/25/24 05:38 Dose: 88 mcg Documented By: BOYD Lorazepam (Lorazepam 2 Mg/Ml Vial) 0.5 mg IVPUSH Q6H PRN PRN Reason: anxiety/restlessness Last Admin: 08/25/24 02:56 Dose: 0.5 mg Documented By: BOYD Magnesium Hydroxide (Milk Of Magnesia 30 Ml Oral.Susp) 30 ml PO DAILY PRN PRN Reason: Constipation Last Admin: 08/19/24 08:13 Dose: 30 ml Documented By: ALLI Magnesium Oxide (Magnesium Oxide 400 Mg Tablet) 400 mg PO DAILY@1700 [facility] Last Admin: 08/20/24 17:46 Dose: 400 mg Documented By: HONORIO Melatonin (Melatonin 3 Mg Tablet) 6 mg PO BEDTIME PRN PRN Reason: Insomnia Last Admin: 08/23/24 20:11 Dose: 6 mg Documented By: ABELARDO Midodrine (Midodrine Hcl 10 Mg Tablet) 10 mg PO TIDWM [facility] Last Admin: 08/25/24 11:33 Dose: Not Given Documented By: ZAN Non-Admin Reason: pt is FIELD MAP EDITOR Morphine Sulfate (Morphine Sulfate Immed Release 15 Mg Tablet) 15 mg PO Q4H PRN PRN Reason: Breakthrough Pain Omeprazole (Omeprazole 20 Mg Capsule.Dr) 20 mg PO BID@0630,1630 [facility] Last Admin: 08/25/24 05:38 Dose: 20 mg Documented By: BOYD Ondansetron HCl (Ondansetron Hcl 4 Mg/2 Ml Vial) 4 mg IVPUSH Q4H PRN PRN Reason: Nausea Last Admin: 08/25/24 08:40 Dose: 4 mg Documented By: ZAN Polyethylene Glycol (Polyethylene Glycol 3350 17 Gm Powd.Pack) 17 gm PO BID [facility] Last Admin: 08/25/24 09:20 Dose: Not Given Documented By: ZAN Non-Admin Reason: Patient Refused Sodium Chloride (0.9 % Sodium Chloride Flush 3 Ml Syringe) 3 ml IVFLUSH QSHIFT [facility] Last Admin: 08/25/24 09:20 Dose: Not Given Documented By: ZAN Non-Admin Reason: Previously Administered Labs 08/20/24 20:04 08/21/24 08:18 Assessment and Plan (1) Decompensated heart failure: Status: Acute (2) CKD stage 3b, 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: Status: Acute Assessment and Plan: 83M PMH cardiac arrest, biventricular ICD, HFrEF, CKD3, paroxysmal atrial fibrillation on Xarelto, CAD, PVD, asthma, GERD, gout, KEVIN on CPAP who presented to the emergency department with increasing lower extremity edema associated with 20 lb weight gain found to have acute kidney injury, plan transitioned to FIELD MAP EDITOR Patient admitted 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 Due to borderline to hypotensive range blood pressure as well as worsening renal failure and electrolytic abnormalities as well as advanced cardiac disease- Discussed with patient and his daughter in detail length-that overall prognosis is extremely very poor considering multiple comorbidities and possible advanced heart disease/worsening kidney disease and multiple comorbidities. They both decided for comfort measures. Hospice evaluation . s/p pigtail, awaiting placement Quality Stroke Does the patient have a stroke diagnosis?: No VTE Prior VTE?: No VTE Risk Level:: Medical - moderate - high VTE Device Contraindication: N/A - Device Ordered VTE Drug Contraindication: N/A - Med Ordered
[2024-08-25] MEDS: Artificial Tears 15 ML DROPS 2 DROP EYE-BOTH ×2 (16:30→21:54)
[2024-08-25] MEDS: Gabapentin 600 MG TABLET PO (19:21)
[2024-08-25] MEDS: Loperamide HCl 2 MG CAPSULE PO (19:27)
[2024-08-26] MEDS: ondansetron HCL 4 MG/2 ML VIAL IVPUSH ×4 (03:25→22:30)
[2024-08-26] MEDS: Artificial Tears 15 ML DROPS 2 DROP EYE-BOTH (03:27)
[2024-08-26 04:00] VITALS: PULSE 60; RESP 16
[2024-08-26] MEDS: LORazepam 2 MG/ML VIAL 0.5 MG IVPUSH ×3 (04:06→18:48)
[2024-08-26] MEDS: Levothyroxine Sodium 88 MCG TABLET PO (04:07)
[2024-08-26] MEDS: Omeprazole 20 MG CAPSULE.DR PO ×2 (04:08→16:38)
[2024-08-26 07:45] VITALS: PULSE 60; RESP 19
[2024-08-26 08:38] VITALS: BP 94/55
[2024-08-26] MEDS: Finasteride 5 MG TABLET PO (08:38)
[2024-08-26] MEDS: allopurinoL 100 MG TABLET PO (08:38)
[2024-08-26] MEDS: Midodrine HCl 10 MG TABLET PO (08:38)
[2024-08-26] MEDS: 0.9 % Sodium Chloride Flush 3 ML SYRINGE IVFLUSH ×2 (08:39→22:31)
--- NOTE | 2024-08-26 10:33 | HO.PM.IMPN ---
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 Review of Systems Comfortable Physical Exam Vital Signs: Vital Signs: Last Vital Signs Temp 96.8 F 08/24/24 15:48 Pulse 60 08/26/24 07:45 Resp 19 08/26/24 07:45 BP 94/55 L 08/26/24 08:38 Pulse Ox 99 08/24/24 15:48 O2 Del Method Room Air 08/24/24 15:48 BMI result Body Mass Index 28.6 Awake and comfortable Objective Data Active Medications Acetaminophen (Acetaminophen 325 Mg Tablet) 650 mg PO Q6H PRN PRN Reason: Pain, Mild 1-3,fever,headache Last Admin: 08/19/24 22:24 Dose: 650 mg Documented By: IGDEON Acetaminophen (Acetaminophen 325 Mg Tablet) 650 mg PO Q4H PRN PRN Reason: Fever >/= 100, Pain, mild 1-3 Allopurinol (Allopurinol 100 Mg Tablet) 100 mg PO DAILY COUNTS INCLUDE 234 BEDS AT THE [facility] Last Admin: 08/26/24 08:38 Dose: 100 mg Documented By: CHAIM Amiodarone HCl (Amiodarone Hcl 200 Mg Tablet) 200 mg PO DAILY@1700 COUNTS INCLUDE 234 BEDS AT THE [facility] Last Admin: 08/25/24 16:24 Dose: Not Given Documented By: ZAN Non-Admin Reason: ELECTRICAL SYSTEM SPECIALIST Artificial Tears (Artificial Tears 15 Ml Drops) 2 drop EYE-BOTH Q4H PRN PRN Reason: Dry Eyes Last Admin: 08/26/24 03:27 Dose: 2 drop Documented By: BOYD Calcium Carbonate (Calcium Carbonate 750 Mg Tab.Chew) 750 mg PO Q4H PRN PRN Reason: Heartburn Docusate Sodium (Docusate Sodium 100 Mg Capsule) 100 mg PO BEDTIME COUNTS INCLUDE 234 BEDS AT THE [facility] Last Admin: 08/25/24 19:21 Dose: Not Given Documented By: BOYD Non-Admin Reason: Patient Refused Finasteride (Finasteride 5 Mg Tablet) 5 mg PO DAILY COUNTS INCLUDE 234 BEDS AT THE [facility] Last Admin: 08/26/24 08:38 Dose: 5 mg Documented By: CHAIM Gabapentin (Gabapentin 600 Mg Tablet) 600 mg PO BEDTIME COUNTS INCLUDE 234 BEDS AT THE [facility] Last Admin: 08/25/24 19:21 Dose: 600 mg Documented By: BOYD Levothyroxine Sodium (Levothyroxine Sodium 88 Mcg Tablet) 88 mcg PO DAILY@0600 COUNTS INCLUDE 234 BEDS AT THE [facility] Last Admin: 08/26/24 04:07 Dose: 88 mcg Documented By: BOYD Loperamide HCl (Loperamide Hcl 2 Mg Capsule) 2 mg PO Q4H PRN PRN Reason: Diarrhea Last Admin: 08/25/24 19:27 Dose: 2 mg Documented By: BOYD Lorazepam (Lorazepam 2 Mg/Ml Vial) 0.5 mg IVPUSH Q6H PRN PRN Reason: anxiety/restlessness Last Admin: 08/26/24 04:06 Dose: 0.5 mg Documented By: BOYD Magnesium Hydroxide (Milk Of Magnesia 30 Ml Oral.Susp) 30 ml PO DAILY PRN PRN Reason: Constipation Last Admin: 08/19/24 08:13 Dose: 30 ml Documented By: ALLI Magnesium Oxide (Magnesium Oxide 400 Mg Tablet) 400 mg PO DAILY@1700 COUNTS INCLUDE 234 BEDS AT THE [facility] Last Admin: 08/20/24 17:46 Dose: 400 mg Documented By: HONORIO Melatonin (Melatonin 3 Mg Tablet) 6 mg PO BEDTIME PRN PRN Reason: Insomnia Last Admin: 08/23/24 20:11 Dose: 6 mg Documented By: ABELARDO Midodrine (Midodrine Hcl 10 Mg Tablet) 10 mg PO TIDWM COUNTS INCLUDE 234 BEDS AT THE [facility] Last Admin: 08/26/24 08:38 Dose: 10 mg Documented By: CHAIM Morphine Sulfate (Morphine Sulfate Immed Release 15 Mg Tablet) 15 mg PO Q4H PRN PRN Reason: Breakthrough Pain Omeprazole (Omeprazole 20 Mg Capsule.) 20 mg PO BID@0630,1630 COUNTS INCLUDE 234 BEDS AT THE [facility] Last Admin: 08/26/24 04:08 Dose: 20 mg Documented By: BOYD Ondansetron HCl (Ondansetron Hcl 4 Mg/2 Ml Vial) 4 mg IVPUSH Q4H PRN PRN Reason: Nausea Last Admin: 08/26/24 03:25 Dose: 4 mg Documented By: BOYD Polyethylene Glycol (Polyethylene Glycol 3350 17 Gm Powd.Pack) 17 gm PO BID COUNTS INCLUDE 234 BEDS AT THE [facility] Last Admin: 08/26/24 08:39 Dose: Not Given Documented By: CHAIM Non-Admin Reason: Patient Refused Sodium Chloride (0.9 % Sodium Chloride Flush 3 Ml Syringe) 3 ml IVFLUSH QSHIFT COUNTS INCLUDE 234 BEDS AT THE [facility] Last Admin: 08/26/24 08:39 Dose: 3 ml Documented By: CHAIM Labs 08/20/24 20:04 08/21/24 08:18 Assessment and Plan (1) Decompensated heart failure: Status: Acute (2) CKD stage 3b, 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: Status: Acute Assessment and Plan: 83M PMH cardiac arrest, biventricular ICD, HFrEF, CKD3, paroxysmal atrial fibrillation on Xarelto, CAD, PVD, asthma, GERD, gout, KEVIN on CPAP who presented to the emergency department with increasing lower extremity edema associated with 20 lb weight gain found to have acute kidney injury, plan transitioned to ELECTRICAL SYSTEM SPECIALIST Patient admitted acute on chronic combined systolic and diastolic CHF and cardiac [facility] due to right side heart failure, LIBRA on CKD as well as cardiorenal: Patient received IV diuresis, paracentesis x2, IV albumin With the above management patient did not improve much has persistent edema and ascites, hospital course complicated with worsening LIBRA as well as urinary output as well as electrolytic abnormalities, in addition also developed acute blood loss anemia multifactorial for which patient required transfusion and Xarelto was placed on hold. Due to borderline to hypotensive range blood pressure as well as worsening renal failure and electrolytic abnormalities as well as advanced cardiac disease- Discussed with patient and his daughter in detail length-that overall prognosis is extremely very poor considering multiple comorbidities and possible advanced heart disease/worsening kidney disease and multiple comorbidities. They both decided for comfort measures. Hospice evaluation . s/p pigtail, awaiting placement Quality Stroke Does the patient have a stroke diagnosis?: No VTE Prior VTE?: No VTE Risk Level:: Medical - moderate - high VTE Device Contraindication: N/A - Device Ordered VTE Drug Contraindication: N/A - Med Ordered
[2024-08-26 11:40] VITALS: PULSE 60; RESP 19
[2024-08-26] MEDS: Loperamide HCl 2 MG CAPSULE PO ×2 (12:20→22:30)
--- NOTE | 2024-08-26 14:04 | P.CDIM_ITS ---
PROVIDER RESPONSE TEXT: To clarify, the appropriate diagnosis supported by the clinical indicators: Acute renal failure with suspected ATN QUERY TEXT: PHYSICIAN'S DOCUMENTATION REQUEST Date of Query: 08/26/2024 01:49 PM EDT Patient Name: Sherman Hurtado Admit Date: 08/16/2024 Dear Segun Flores MD, A review of the medical record indicates additional documentation may be needed. Please review below and update the documentation accordingly. Clinical Indicators: hospital course complicated with worsening LIBRA as well as urinary output worsening renal failure, now with CKD stage 4 labs done 08/21/24: BUN 79/creatinine 3.05, EST GFR 20 Per Nephrology: Advanced heart failure, worsening renal function now NETWORK SUPPORT SPECIALIST Please clarify which of the following accurately represents the patient's renal status: Acute renal failure with suspected ATN Acute renal failure with other pathology (medullary, papillary, or cortical necrosis) ESRD - CKD V now requiring permanent dialysis and/or transplant Other (explain) Clinically unable to determine (explain) Thank you, Christine Mccallum RN Use of terms such as suspected, likely, concern for, or probable (associated with a specific diagnosi s that is being evaluated, monitored, or treated as if it exists) are acceptable and can be coded in the inpatient se tting, when documented at the time of discharge. Please use your independent medical judgment in providing your response. THIS QUERY IS PART OF THE PERMANENT MEDICAL RECORD
--- NOTE | 2024-08-26 15:18 | MHC.CM.PN ---
Addendum entered by Haylee Silvestre 08/26/24 15:48: application to [facility] faxed to: [phone], anticipate they have a waiting list, awaiting response. Original Note: CM spoke with Hospice, they are willing to admit pt. and have 5 days in hosp. respite, but they need to know that pt. will be able to go to SNF on day 5. Waiting to hear from [facility] on bed availability. Family aware and in agreement, would like Hospice to start janeth. They are aware of SNF requiring private payment.
[2024-08-26 15:46] VITALS: PULSE 89; RESP 20
[2024-08-26] MEDS: Morphine Sulfate Immed Release 15 MG TABLET PO ×2 (18:46→22:29)
[2024-08-26 19:29] VITALS: PULSE 60; RESP 15
[2024-08-26] MEDS: Gabapentin 600 MG TABLET PO (22:30)
[2024-08-27] VITALS (8 sets, daily range): PULSE 60–70; RESP 15–18; TEMP 36.1; O2SAT 93
[2024-08-27] MEDS: Morphine Sulfate 2 MG/ML CARTRIDGE 1 MG IVPUSH ×4 (00:48→23:59)
[2024-08-27] MEDS: Metoclopramide HCl 10 MG/2 ML VIAL 5 MG IVPUSH ×2 (00:48→10:32)
[2024-08-27] MEDS: LORazepam 2 MG/ML VIAL 0.5 MG IVPUSH ×4 (00:49→18:33)
[2024-08-27] MEDS: Morphine Sulfate Immed Release 15 MG TABLET PO ×2 (06:26→20:59)
[2024-08-27] MEDS: ondansetron HCL 4 MG/2 ML VIAL IVPUSH ×3 (06:26→18:33)
[2024-08-27] MEDS: Omeprazole 20 MG CAPSULE.DR PO (06:26)
[2024-08-27] MEDS: Levothyroxine Sodium 88 MCG TABLET PO (06:26)
[2024-08-27] MEDS: allopurinoL 100 MG TABLET PO (08:36)
[2024-08-27] MEDS: Finasteride 5 MG TABLET PO (08:36)
--- NOTE | 2024-08-27 09:51 | HO.PM.IMPN ---
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 Review of Systems Comfortable Physical Exam Vital Signs: Vital Signs: Last Vital Signs Temp 96.8 F 08/24/24 15:48 Pulse 60 08/27/24 07:13 Resp 16 08/27/24 07:13 BP 94/55 L 08/26/24 08:38 Pulse Ox 99 08/24/24 15:48 O2 Del Method Room Air 08/24/24 15:48 BMI result Body Mass Index 28.6 Awake and comfortable Objective Data Active Medications Acetaminophen (Acetaminophen 325 Mg Tablet) 650 mg PO Q6H PRN PRN Reason: Pain, Mild 1-3,fever,headache Last Admin: 08/19/24 22:24 Dose: 650 mg Documented By: GIDEON Acetaminophen (Acetaminophen 325 Mg Tablet) 650 mg PO Q4H PRN PRN Reason: Fever >/= 100, Pain, mild 1-3 Allopurinol (Allopurinol 100 Mg Tablet) 100 mg PO DAILY [facility] Last Admin: 08/27/24 08:36 Dose: 100 mg Documented By: DAKOTAH Artificial Tears (Artificial Tears 15 Ml Drops) 2 drop EYE-BOTH Q4H PRN PRN Reason: Dry Eyes Last Admin: 08/26/24 03:27 Dose: 2 drop Documented By: BOYD Calcium Carbonate (Calcium Carbonate 750 Mg Tab.Chew) 750 mg PO Q4H PRN PRN Reason: Heartburn Finasteride (Finasteride 5 Mg Tablet) 5 mg PO DAILY [facility] Last Admin: 08/27/24 08:36 Dose: 5 mg Documented By: DAKOTAH Gabapentin (Gabapentin 600 Mg Tablet) 600 mg PO BEDTIME [facility] Last Admin: 08/26/24 22:30 Dose: 600 mg Documented By: ABELARDO Levothyroxine Sodium (Levothyroxine Sodium 88 Mcg Tablet) 88 mcg PO DAILY@0600 [facility] Last Admin: 08/27/24 06:26 Dose: 88 mcg Documented By: ABELARDO Loperamide HCl (Loperamide Hcl 2 Mg Capsule) 2 mg PO Q4H PRN PRN Reason: Diarrhea Last Admin: 08/26/24 22:30 Dose: 2 mg Documented By: ABELARDO Lorazepam (Lorazepam 2 Mg/Ml Vial) 0.5 mg IVPUSH Q6H PRN PRN Reason: anxiety/restlessness Last Admin: 08/27/24 06:27 Dose: 0.5 mg Documented By: ABELARDO Magnesium Hydroxide (Milk Of Magnesia 30 Ml Oral.Susp) 30 ml PO DAILY PRN PRN Reason: Constipation Last Admin: 08/19/24 08:13 Dose: 30 ml Documented By: ALLI Melatonin (Melatonin 3 Mg Tablet) 6 mg PO BEDTIME PRN PRN Reason: Insomnia Last Admin: 08/23/24 20:11 Dose: 6 mg Documented By: ABELARDO Metoclopramide HCl (Metoclopramide Hcl 10 Mg/2 Ml Vial) 5 mg IVPUSH Q4H PRN PRN Reason: Nausea and Vomiting Last Admin: 08/27/24 00:48 Dose: 5 mg Documented By: ABELARDO Morphine Sulfate (Morphine Sulfate Immed Release 15 Mg Tablet) 15 mg PO Q4H PRN PRN Reason: SHEET CUTTER Last Admin: 08/27/24 06:26 Dose: 15 mg Documented By: ABELARDO Morphine Sulfate (Morphine Sulfate 2 Mg/Ml Cartridge) 1 mg IVPUSH Q2H PRN; Protocol PRN Reason: Breakthrough Pain Last Admin: 08/27/24 08:52 Dose: 1 mg Documented By: DAKOTAH Omeprazole (Omeprazole 20 Mg Capsule.Dr) 20 mg PO BID@0630,1630 [facility] Last Admin: 08/27/24 06:26 Dose: 20 mg Documented By: ABELARDO Ondansetron HCl (Ondansetron Hcl 4 Mg/2 Ml Vial) 4 mg IVPUSH Q4H PRN PRN Reason: Nausea Last Admin: 08/27/24 06:26 Dose: 4 mg Documented By: ABELARDO Polyethylene Glycol (Polyethylene Glycol 3350 17 Gm Powd.Pack) 17 gm PO BID [facility] Last Admin: 08/27/24 07:55 Dose: Not Given Documented By: DAKOTAH Non-Admin Reason: daughter refused Sodium Chloride (0.9 % Sodium Chloride Flush 3 Ml Syringe) 3 ml IVFLUSH QSHIFT [facility] Last Admin: 08/26/24 22:31 Dose: 3 ml Documented By: ABELARDO Labs 08/20/24 20:04 08/21/24 08:18 Assessment and Plan (1) Decompensated heart failure: Status: Acute (2) CKD stage 3b, 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: Status: Acute Assessment and Plan: 83M PMH cardiac arrest, biventricular ICD, HFrEF, CKD3, paroxysmal atrial fibrillation on Xarelto, CAD, PVD, asthma, GERD, gout, KEVIN on CPAP who presented to the emergency department with increasing lower extremity edema associated with 20 lb weight gain found to have acute kidney injury, plan transitioned to SHEET CUTTER Patient admitted acute on chronic combined systolic and diastolic CHF and cardiac [facility] due to right side heart failure, LIBRA on CKD as well as cardiorenal: Patient received IV diuresis, paracentesis x2, IV albumin With the above management patient did not improve much has persistent edema and ascites, hospital course complicated with worsening LIBRA as well as urinary output as well as electrolytic abnormalities, in addition also developed acute blood loss anemia multifactorial for which patient required transfusion and Xarelto was placed on hold. Due to borderline to hypotensive range blood pressure as well as worsening renal failure and electrolytic abnormalities as well as advanced cardiac disease- Discussed with patient and his daughter in detail length-that overall prognosis is extremely very poor considering multiple comorbidities and possible advanced heart disease/worsening kidney disease and multiple comorbidities. They both decided for comfort measures. s/p pigtail, awaiting placement d/w with patient and family regarding AICD, they requested to have defibrillation deactivated. Quality Stroke Does the patient have a stroke diagnosis?: No VTE Prior VTE?: No VTE Risk Level:: Medical - moderate - high VTE Device Contraindication: N/A - Device Ordered VTE Drug Contraindication: N/A - Med Ordered
[2024-08-27] MEDS: 0.9 % Sodium Chloride Flush 3 ML SYRINGE IVFLUSH ×3 (10:29→21:04)
--- NOTE | 2024-08-27 13:34 | MHC.CM.PN ---
[facility]PDATED WITH RECENT CLINICALS OT SUPPORT SPEECH PATHOLOGY TEACHER STATUS. DAUGHTER, QASIM, AWARE. CM FOLLOWING.
--- NOTE | 2024-08-27 14:02 | MHC.CM.PN ---
[facility] IS ABLE TO OFFER A BED PENDING FINANCIAL ARRANGEMENT. DAUGHTERS, FABIANA AND QASIM, ARE AWARE. [facility] INVOLVED AND SPEAKING WITH FAMILY TO ARRANGE.
--- NOTE | 2024-08-27 15:15 | MHC.CM.PN ---
[facility] IS OFFERING A BED FOR FRIDAY FINANCIALS ARE SECURED. PATIENT WILL DC AND SIGN UNDER [facility] AT FACILITY. PLAN IS 1230 TRANSPORT FROM HERE. AND DAUGHTER, QASIM CHATO VIA TIGER TEXT. CM FOLLOWING
--- NOTE | 2024-08-27 15:31 | MHC.CM.PN ---
DAUGHTER, QASIM, IN AGREEMENT WITH PLAN TO TRANSPORT VIA AMBULANCE TO [facility] FOR 1230 ON FRIDAY.
[2024-08-27] MEDS: Gabapentin 600 MG TABLET PO (20:59)
--- NOTE | 2024-08-27 21:15 | PC.NURSE ---
Pt requesting 1L to be drained from abd via pleurex drain for comfort.
[2024-08-28] MEDS: LORazepam 2 MG/ML VIAL 0.5 MG IVPUSH ×4 (00:05→12:27)
[2024-08-28 03:50] VITALS: RESP 12; TEMP 36.1
[2024-08-28] MEDS: Morphine Sulfate Immed Release 15 MG TABLET PO (05:26)
[2024-08-28] MEDS: Levothyroxine Sodium 88 MCG TABLET PO (05:26)
[2024-08-28] MEDS: Omeprazole 20 MG CAPSULE.DR PO (05:26)
[2024-08-28] MEDS: ondansetron HCL 4 MG/2 ML VIAL IVPUSH ×2 (05:26→12:27)
[2024-08-28 07:01] VITALS: PULSE 59; RESP 17; O2SAT 95
--- NOTE | 2024-08-28 07:40 | PM.DS ---
DS: Providers Provider Date of Service: 08/28/24 Date of admission: 08/16/24 14:43 Date of discharge: 08/28/24 Primary care physician: Prince Manning MD Consults: 08/16/24 14:07 Consult to Nephrology Stat Consulting Provider: [facility] Reason for consultation: ansarca renal failure Has provider been notified: No 08/16/24 14:32 Consult to Nephrology Routine Consulting Provider: [facility] Reason for consultation: LIBRA Has provider been notified: No 08/18/24 09:19 Consult to Gastroenterology Routine Consulting Provider: [facility] Reason for consultation: ascitis -?cardiac vs noncardiac cirrosis Has provider been notified: No 08/19/24 10:39 Consult to Cardiology Routine Consulting Provider: [facility] Reason for consultation: Cardiorenal Has provider been notified: No DS: Diagnosis Discharge Diagnosis (1) Decompensated heart failure: Status: Acute (2) CKD stage 3b, 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 Patient was discharged from the hospital on August 03 at that time his Aldactone was discontinued due to hyperkalemia. He reportedly resumed at approximately 1 week ago on his own due to his increasing lower extremity edema. He also reports associated abdominal distention. He denies chest pain, palpitations, dyspnea. Creatinine increased at 1.81, BNP 1832. ultrasound with paracentesis ordered by ED provider, not obtained at this time. 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 For other complicated by symptomatic ascites. Patient was treated with IV diuresis and paracentesis as well as IV albumin. Course complicated by worsening acute kidney injury decreased urine output acute blood loss anemia requiring transfusion, hyponatremia, due to poor prognosis decision made to transfer to comfort measures only. Patient had pigtail catheter placed for peritoneal drain to allow for continued symptomatic drainage. Patient has AICD for which defibrillation was deactivated. He will be discharged to [facility] for hospice/end of life care. Time Attestation Discharge Coordination Time (in mins): 32 Quality: Safe Use of Opioids Does Pt have an Active Cancer Diagnosis on the Problem List?: No Quality: Stroke Does the patient have a stroke diagnosis?: No Physical Exam Vital Signs: Vital Signs: Last Vital Signs Temp 97 F 08/28/24 03:50 Pulse 59 08/28/24 07:01 Resp 17 08/28/24 07:01 BP 94/55 L 08/26/24 08:38 Pulse Ox 95 08/28/24 07:01 O2 Del Method Room Air 08/28/24 07:01 BMI result Body Mass Index 28.6 Awake and comfortable DS: Data Data Completed and Pending Completed studies during hospitalization [Text1]: Procedures Assistance with Respiratory Ventilation, Less than 24 Consecutive Hours, Continuous Positive Airway Pressure (04/12/24) Drainage of Peritoneal Cavity, Percutaneous Approach (04/12/24) Drainage of Peritoneal Cavity, Percutaneous Approach, Diagnostic (04/12/24) Transfusion of Nonautologous Red Blood Cells into Peripheral Vein, Percutaneous Approach (04/12/24) Discharge Plan Discharge Anticipated Discharge Date/Time: 08/28/24 07:35 Patient Disposition: Xfer SNF Discharge Diagnosis: chf Referrals: [facility] [Outside] - 1 Day ([facility] OF NURSING HOME AND HOME PT) Prince Manning MD [Primary Care Provider] - 1 Week Discharge Medications: New acetaminophen 325 mg Tablet 650 mg PO Q4H PRN (Reason: Fever >/= 100, Pain, mild 1-3) Qty: 0 0RF loperamide 2 mg Capsule 2 mg PO Q4H PRN (Reason: Diarrhea) Qty: 0 0RF polyethylene glycol 3350 17 gram Powder In Packet 17 g PO BID PRN (Reason: constipation) Qty: 0 0RF morphine 15 mg Tablet 15 mg PO Q4H PRN (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 Artificial Tears([id number]) 1-0.2-0.2 % Drops 2 drp ophthalmic (eye) Q4H PRN (Reason: Dry Eyes) Qty: 0 0RF lorazepam 2 mg tablet 2 mg PO TID PRN (Reason: anxiety) Qty: 30 0RF Continued gabapentin 600 mg tablet 600 mg PO BEDTIME 90 Days Qty: 90 1RF allopurinol 100 mg tablet 100 mg PO DAILY levothyroxine 88 mcg tablet 88 mcg DAILY@0600 pantoprazole 40 mg tablet,delayed release (DR/EC) 40 mg PO BID@0630,1630 finasteride 5 mg tablet 5 mg PO DAILY Discontinued amiodarone 200 mg tablet 200 mg PO DAILY@1700 Qty: 90 3RF Xarelto 15 mg tablet 15 mg PO DAILY@1700 Qty: 90 3RF Rx Instructions: must administer with evening meal atorvastatin 40 mg tablet 40 mg PO BEDTIME Qty: 90 3RF calcium carbonate 500 mg calcium (1,250 mg) Tablet 500 mg PO BEDTIME cholecalciferol (vitamin D3) [Vitamin D3] 25 mcg (1,000 unit) Tablet 25 mcg PO DAILY magnesium oxide 400 mg magnesium tablet 400 mg PO DAILY@1700 spironolactone 25 mg tablet 25 mg PO DAILY torsemide 20 mg tablet 20 mg PO BEDTIME Protocol: Hold for SBP< HOLD for SBP < : 90 Discharge Orders: Discharge Order (Routine); Ordered 08/28/24 Ordered By: Segun Flores Diet: Advance to usual diet Activity on Discharge: As tolerated Stand Alone Forms: Patient Portal Discharge page Print Language: [place]ican Care Plan Goals: 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
[2024-08-28] MEDS: allopurinoL 100 MG TABLET PO (09:46)
[2024-08-28] MEDS: Finasteride 5 MG TABLET PO (09:46)
[2024-08-28] MEDS: polyethylene glycoL 3350 17 GM POWD.PACK PO (09:46)
[2024-08-28] MEDS: Morphine Sulfate 2 MG/ML CARTRIDGE 1 MG IVPUSH (09:47)
[2024-08-28] MEDS: 0.9 % Sodium Chloride Flush 3 ML SYRINGE IVFLUSH (09:51)
--- NOTE | 2024-08-28 10:16 | MHC.CM.PN ---
PT WILL DC TO [facility] WITH A PLAN TO SIGN [facility]NTO HOSPICE SERVICES ONCE THERE VM MESSAGE LEFT FOR PTS DAUGHTER, QASIM [phone] BLS TRANSPORT BOOKED FOR 1230 WITH [facility]
[2024-08-28 12:00] VITALS: PULSE 62; RESP 16
== END 2024-08-28 13:13 | disposition skilled nursing facility (03) | DRG 291 ==
LOC: HO.ED 13:59 → HO.EDOVER 14:46 → HO.IMC 08-17 07:22
PROVIDERS: Internal Medicine; Physician Assistant Surgical; Radiology Diagnostic Radiology; Student in an Organized Health Care Education/Training Program; Admitting Provider Physician Assistant Medical; Emergency Provider Emergency Medicine; PCP Internal Medicine Sports Medicine; Visit Provider Internal Medicine
PROC: 0W9G30Z Drainage of Peritoneal Cavity with Drainage Device, Percutaneous Approach (ICD-10-PCS; principal; 2024-08-23 11:30)
DX: I13.0 Hypertensive heart and chronic kidney disease with heart failure and stage 1 through stage 4 chronic kidney disease, or unspecified chronic kidney disease (principal); N17.0 Acute kidney failure with tubular necrosis; N18.4 Chronic kidney disease, stage 4 (severe); E87.1 Hypo-osmolality and hyponatremia; D62 Acute posthemorrhagic anemia; D63.8 Anemia in other chronic diseases classified elsewhere; D64.89 Other specified anemias; T45.515A Adverse effect of anticoagulants, initial encounter; E78.5 Hyperlipidemia, unspecified; G47.33 Obstructive sleep apnea (adult) (pediatric); Z51.5 Encounter for palliative care; G62.9 Polyneuropathy, unspecified; D63.1 Anemia in chronic kidney disease; I50.810 Right heart failure, unspecified; I48.0 Paroxysmal atrial fibrillation; K76.1 Chronic passive congestion of liver; I25.10 Atherosclerotic heart disease of native coronary artery without angina pectoris; I95.9 Hypotension, unspecified; E87.5 Hyperkalemia; Z45.02 Encounter for adjustment and management of automatic implantable cardiac defibrillator; E03.9 Hypothyroidism, unspecified; Z95.5 Presence of coronary angioplasty implant and graft; Z86.74 Personal history of sudden cardiac arrest; Z79.890 Hormone replacement therapy; Z79.899 Other long term (current) drug therapy; Z79.01 Long term (current) use of anticoagulants
CPT/HCPCS: 36415; 49083; 49406; 71046; 74176; 76705; 80048; 80076; 82947; 83880; 84132; 84484; 85014; 85018; 85025; 85384; 85610; 85730; 86850; 86900; 86901; 86923; 93005; 93306; 94660; 99285; C1729; J1939; J1940; J2003; J2060; J2270; J2405; J2470; J2765; P9016; P9047; Q9957

== ENCOUNTER → 2024-08-16 09:28 | Outpatient (BNV) | payer MEDICARE, SELFPAY | PROVIDERS: Emergency Provider Emergency Medicine; Visit Provider Radiology Diagnostic Radiology | DX: R18.8 Other ascites (principal) | CPT/HCPCS: 49083 ==

== ENCOUNTER 2024-08-16 14:43 | Outpatient (BNV) | payer MEDICARE, SELFPAY | END 2024-08-18 10:26 | PROVIDERS: Admitting Provider Physician Assistant Medical; Emergency Provider Emergency Medicine; PCP Internal Medicine Sports Medicine; Visit Provider Radiology Diagnostic Radiology | DX: K74.60 Unspecified cirrhosis of liver (principal); R18.8 Other ascites; K80.20 Calculus of gallbladder without cholecystitis without obstruction | CPT/HCPCS: 76705 ==

== ENCOUNTER 2024-08-16 14:43 | Outpatient (BNV) | payer MEDICARE, SELFPAY | END 2024-08-19 12:30 | PROVIDERS: Admitting Provider Physician Assistant Medical; Emergency Provider Emergency Medicine; PCP Internal Medicine Sports Medicine; Visit Provider Physician Assistant Surgical | DX: R18.8 Other ascites (principal) | CPT/HCPCS: 49083 ==

== ENCOUNTER 2024-08-16 14:43 | Outpatient (BNV) | payer MEDICARE, SELFPAY | END 2024-08-17 07:00 | PROVIDERS: Admitting Provider Physician Assistant Medical; Emergency Provider Emergency Medicine; PCP Internal Medicine Sports Medicine; Visit Provider Internal Medicine Cardiovascular Disease | DX: I35.2 Nonrheumatic aortic (valve) stenosis with insufficiency (principal); I34.0 Nonrheumatic mitral (valve) insufficiency; I36.1 Nonrheumatic tricuspid (valve) insufficiency; I27.20 Pulmonary hypertension, unspecified | CPT/HCPCS: 93306 ==

== ENCOUNTER 2024-08-16 14:43 | Outpatient (BNV) | payer MEDICARE, SELFPAY | END 2024-08-20 18:09 | PROVIDERS: Admitting Provider Physician Assistant Medical; Emergency Provider Emergency Medicine; PCP Internal Medicine Sports Medicine; Visit Provider Radiology Diagnostic Radiology | DX: R18.8 Other ascites (principal) | CPT/HCPCS: 74176 ==

== ENCOUNTER 2024-08-16 14:43 | Outpatient (BNV) | payer MEDICARE, SELFPAY | END 2024-08-23 16:00 | PROVIDERS: Admitting Provider Physician Assistant Medical; Emergency Provider Emergency Medicine; PCP Internal Medicine Sports Medicine; Visit Provider Radiology Diagnostic Radiology | DX: R18.8 Other ascites (principal) | CPT/HCPCS: 49083 ==

== ENCOUNTER 2024-08-16 14:43 | Outpatient (BNV) | payer MEDICARE, SELFPAY | END 2024-08-24 14:15 | PROVIDERS: Admitting Provider Physician Assistant Medical; Emergency Provider Emergency Medicine; PCP Internal Medicine Sports Medicine; Visit Provider Radiology Diagnostic Radiology | DX: R18.8 Other ascites (principal) | CPT/HCPCS: 49406 ==

== ENCOUNTER → 2024-08-16 14:43 | Outpatient (BNV) | payer MEDICARE, SELFPAY | PROVIDERS: Admitting Provider Physician Assistant Medical; Emergency Provider Emergency Medicine; PCP Internal Medicine Sports Medicine; Visit Provider Internal Medicine Gastroenterology | DX: D64.9 Anemia, unspecified (principal); K62.5 Hemorrhage of anus and rectum | CPT/HCPCS: 99222 ==

== ENCOUNTER → 2024-08-16 14:43 | Outpatient (BNV) | payer MEDICARE, SELFPAY | PROVIDERS: Admitting Provider Physician Assistant Medical; Emergency Provider Emergency Medicine; PCP Internal Medicine Sports Medicine; Visit Provider Internal Medicine Cardiovascular Disease | DX: I50.9 Heart failure, unspecified (principal) | CPT/HCPCS: 99223 ==

== ENCOUNTER → 2024-08-16 14:43 | Outpatient (BNV) | payer MEDICARE, SELFPAY | PROVIDERS: Admitting Provider Physician Assistant Medical; Emergency Provider Emergency Medicine; PCP Internal Medicine Sports Medicine; Visit Provider Internal Medicine Nephrology | DX: E87.1 Hypo-osmolality and hyponatremia (principal); N18.32 Chronic kidney disease, stage 3b; I50.9 Heart failure, unspecified | CPT/HCPCS: 99223; 99232 ==

== ENCOUNTER → 2024-08-16 14:43 | Outpatient (BNV) | payer MEDICARE, SELFPAY | PROVIDERS: Admitting Provider Physician Assistant Medical; Emergency Provider Emergency Medicine; PCP Internal Medicine Sports Medicine; Visit Provider Physician Assistant Medical | DX: I50.42 Chronic combined systolic (congestive) and diastolic (congestive) heart failure (principal); N18.32 Chronic kidney disease, stage 3b; N17.9 Acute kidney failure, unspecified | CPT/HCPCS: 99223; 99232; 99233; 99497 ==

== ENCOUNTER → 2024-08-16 23:59 | Outpatient (BNV) | payer MEDICARE, SELFPAY ==
--- NOTE | 2024-08-16 14:50 | MHC.OFFVIS ---
Intake Visit Reasons: Remote HF monitoring- [employer] Allergies doxycycline Allergy (Unknown, Verified 08/16/24 09:25) Unknown narcotics Adverse Reaction (Uncoded 08/16/24 09:25) Nausea and Vomiting, hypotensive PFSH Medical History Hyponatremia Iron deficiency anemia Elevated LFTs CKD (chronic kidney disease) LIBRA (acute kidney injury) Ischemic cardiomyopathy History of torsades de pointes Atherosclerotic cardiovascular disease Elevated serum creatinine Biventricular ICD (implantable cardioverter-defibrillator) in place Syncope RBBB PVD (peripheral vascular disease) Hx of thyroid nodule GERD (gastroesophageal reflux disease) CAD (coronary artery disease) BPH (benign prostatic hyperplasia) Asthma Atrial fibrillation Surgical History Hx of CABG Hx of cardiac cath H/O right knee surgery H/O heart surgery Family History Mother Breast cancer Father Heart attack Brother Stomach cancer Brother Heart disease Social History Household Members: None Housing: House Do you presently have visiting nurse or other home services: Yes Alcohol intake: former Comment: pt refusing red socks, alarms, and camera Patient Tobacco Use Status: Former Tobacco user Years Smoked: 25 +/- Smoked in Last 30 Days: No Use of substances other than those prescribed or required for medical reasons: No Advance Directives: Yes Advance Directives on File: Yes Advance Directives Date on File: 10/31/23 Do you have a plan to hurt others: No Plan service: No Office Procedures Cardiac Device Check Cardiac Device Check Details: Date of service- 08/16/2024; based on impedance data and physiological variables, there is possible OptiVol fluid accumulation from 08/14/2024 to ongoing. [id number] Cardiac Device Interrogation, cardio physiologic monitor Procedure code (CPT) selection complete Assessment & Plan Assessment & Plan (1) Biventricular ICD (implantable cardioverter-defibrillator) in place: Code(s): Z95.810 - Presence of automatic (implantable) cardiac defibrillator Category: Medical (2) Chronic combined systolic and diastolic CHF (congestive heart failure): Code(s): I50.42 - Chronic combined systolic (congestive) and diastolic (congestive) heart failure Category: Medical Plan x Coding Level of Care Code Procedure Only Diagnoses Biventricular ICD (implantable cardioverter-defibrillator) in place Z95.810 Chronic combined systolic and diastolic CHF (congestive heart failure) I50.42 CPT Codes Cardiac Device Check - Cardiac Device 15: [id number] Cardiac Device Interrogation, cardio physiologic monitor ([id number])
== END ==
PROVIDERS: Visit Provider Internal Medicine
DX: I50.42 Chronic combined systolic (congestive) and diastolic (congestive) heart failure (principal); Z95.810 Presence of automatic (implantable) cardiac defibrillator
CPT/HCPCS: 93297